=== PATIENT | male | born 1955 | race Caucasian/White ===

== ENCOUNTER → 2017-07-05 15:13 | Outpatient (CLI) | payer OTHER, SELFPAY ==
[2017-07-05 17:36] LABS: Hemoglobin A1c 8.6 % (4.2-6.3)
[2017-07-05 17:38] LABS: Absolute Lymphocyte Count 1.75 X10^3/ul (0.83-4.51); Absolute Neutrophil Count 5.4 X10^3/uL (2.0-7.7); Basophil# 0.03 X10^3/uL; Basophil% 0.4 % (0-1); Eosinophil# 0.38 X10^3/uL; Eosinophils% 4.8 % (0-5); Hematocrit 38.9 % (40-54); Hemoglobin 13.2 g/dl (13.0-16.5); Lymphocyte # 1.75 X10^3/ul (4.0); Lymphocyte % 21.9 % (19-41); Mean Corp Hgb Conc 33.9 g/gl (32-36); Mean Corpuscular Hgb 29.5 pg (27.0-32.0); Mean Corpuscular Volume 86.8 fL (80-94); Mean Platelet Vol. 8.9 fl (6.2-12.0); Neutrophil # 5.41 X10^3/uL (2.7-7.7); Neutrophil % 67.5 % (47-70); Platelet Count 204 K/mm3 (150-450); RBC Distribution Width CV 13.2 % (11.6-14.6); RBC Distribution Width SD 41.7 fl (35.1-43.9); Red Blood Count 4.48 M/mm3 (4.6-6.2)
[2017-07-05 17:42] LABS: POSITIVE COUNT NO; POSITIVE DIFFERENTIAL NO; POSITIVE MORPHOLOGY NO; Vitamin B12 785 pg/mL (211-911); Vitamin D,25 Hydroxy 97.2 ng/mL (29.95-100.01)
[2017-07-05 17:47] LABS: ALB/GLOB Ratio 0.9 RATIO (0.9-2.4); AST(SGOT) 18 U/L (15-37); Alanine Aminotransfer ALT/SGPT 26 U/L (16-61); Albumin, Serum 3.3 g/dL (3.2-5.0); Alkaline Phosphatase 108 U/L (45-117); Anion Gap 9 (5-15); BUN 19 mg/dL (7-18); BUN/Creat Ratio 12.5 RATIO (10-20); Chloride 103 mmol/L (98-107); Cholesterol 105 mg/dL (200); Creatinine, Serum 1.52 mg/dL (0.70-1.30); EST Glomerular Filtration Rate 50 mL/min (>60); Est Glom Filt Rate - Afr Amer 60 mL/min (>60); Globulin 3.6 g/dL (2.2-4.2); Glucose 173 mg/dL (74-106); High Density Lipoprotein 36 mg/dL; Phosphorus 3.4 mg/dL (2.5-4.9); Potassium 4.1 mmol/L (3.5-5.1); Protein, Total 6.9 g/dL (6.4-8.2); Sodium Level 138 mmol/L (136-145); Thyroid Stim Hormone (TSH) 2.86 uIU/mL (0.358-3.74); Triglycerides 271 mg/dL; Very Low Density Lipoprotein 54 mg/dL (5-40)
[2017-07-05 18:36] LABS: Microalbumin:Creatinine Ratio 1126.8 mg/g CRE (<30 mg/g CRE); Protein, Urine (Random) 59.6 mg/dL (<11.9); Protein:Creat Ratio 1426 mg/g CRE (0-200)
[2017-07-05 20:55] LABS: PTHIN 20.1 pg/mL (18.4-80.1)
[2017-07-13 10:53] LABS: Vitamin B1, Thiamine 195.6 nmol/L (66.5-200.0)
== END ==
PROVIDERS: Family Provider Family Medicine; PCP Family Medicine; Visit Provider Family Medicine
DX: E78.5 Hyperlipidemia, unspecified (principal); E11.22 Type 2 diabetes mellitus with diabetic chronic kidney disease; N18.3 Chronic kidney disease, stage 3 (moderate); E11.42 Type 2 diabetes mellitus with diabetic polyneuropathy
CPT/HCPCS: 36415; 80053; 80061; 82043; 82306; 82570; 82607; 83036; 83970; 84100; 84156; 84425; 84443; 85025

== ENCOUNTER → 2017-07-19 16:57 | Outpatient (CLI) | payer OTHER, SELFPAY ==
--- NOTE | 2017-07-19 16:57 | DT_ITS ---
This patient was seen during an EMR downtime July 17, 2017 - July 24, 2017. This patient may have a combination of paper and electronic documentation or all paper documentation. All documentation is viewable within the e-chart portion of [facility] for each patient visit.
[2017-07-23 15:34] LABS: Anion Gap 8 (5-15); BUN 23 mg/dL (7-18); Calcium,Total 8.9 mg/dL (8.5-10.1); Chloride 102 mmol/L (98-107); Creatinine, Serum 1.64 mg/dL (0.70-1.30); EST Glomerular Filtration Rate 45 mL/min (>60); Est Glom Filt Rate - Afr Amer 55 mL/min (>60); Glucose 218 mg/dL (74-106); Potassium 4.4 mmol/L (3.5-5.1); Sodium Level 138 mmol/L (136-145)
== END ==
PROVIDERS: Family Provider Family Medicine; PCP Family Medicine; Visit Provider Family Medicine
DX: N18.3 Chronic kidney disease, stage 3 (moderate) (principal)
CPT/HCPCS: 36415; 80048

== ENCOUNTER → 2017-07-26 13:57 | Outpatient (CLI) | payer OTHER, SELFPAY ==
[2017-07-26 16:20] LABS: Anion Gap 8 (5-15); BUN 25 mg/dL (7-18); BUN/Creat Ratio 15.7 RATIO (10-20); Calcium,Total 9.1 mg/dL (8.5-10.1); Chloride 102 mmol/L (98-107); Creatinine, Serum 1.59 mg/dL (0.70-1.30); EST Glomerular Filtration Rate 47 mL/min (>60); Est Glom Filt Rate - Afr Amer 57 mL/min (>60); Glucose 119 mg/dL (74-106); Potassium 4.4 mmol/L (3.5-5.1); Sodium Level 139 mmol/L (136-145)
== END ==
PROVIDERS: Family Provider Family Medicine; PCP Family Medicine; Visit Provider Family Medicine
DX: N18.3 Chronic kidney disease, stage 3 (moderate) (principal)
CPT/HCPCS: 36415; 80048

== ENCOUNTER → 2017-08-29 14:52 | Outpatient (CLI) | payer OTHER, SELFPAY ==
[2017-08-29 16:45] LABS: Anion Gap 8 (5-15); BUN 26 mg/dL (7-18); BUN/Creat Ratio 16.6 RATIO (10-20); Calcium,Total 8.6 mg/dL (8.5-10.1); Chloride 106 mmol/L (98-107); Creatinine, Serum 1.57 mg/dL (0.70-1.30); EST Glomerular Filtration Rate 48 mL/min (>60); Est Glom Filt Rate - Afr Amer 58 mL/min (>60); Glucose 143 mg/dL (74-106); Potassium 4.3 mmol/L (3.5-5.1); Sodium Level 140 mmol/L (136-145)
== END ==
PROVIDERS: Family Provider Family Medicine; PCP Family Medicine; Visit Provider Family Medicine
DX: I12.9 Hypertensive chronic kidney disease with stage 1 through stage 4 chronic kidney disease, or unspecified chronic kidney disease (principal); N18.3 Chronic kidney disease, stage 3 (moderate); E03.9 Hypothyroidism, unspecified; M10.9 Gout, unspecified; E78.5 Hyperlipidemia, unspecified
CPT/HCPCS: 36415; 80048

== ENCOUNTER → 2017-10-26 14:06 | Outpatient (CLI) | payer OTHER, SELFPAY ==
[2017-10-26 14:09] LABS: Bacteria 0 SEEN /hpf (None Seen); Mucous, Urine 0 SEEN /hpf (<or=2+); Red Blood Cells-Urine 0 SEEN /hpf (0-5); White Blood Cells 0 SEEN /hpf (0-5)
[2017-10-26 15:33] LABS: Absolute Lymphocyte Count 1.78 X10^3/ul (0.83-4.51); Absolute Neutrophil Count 6.1 X10^3/uL (2.0-7.7); Basophil# 0.03 X10^3/uL; Basophil% 0.3 % (0-1); Eosinophil# 0.62 X10^3/uL; Eosinophils% 6.8 % (0-5); Hematocrit 40.2 % (40-54); Lymphocyte # 1.78 X10^3/ul (4.0); Lymphocyte % 19.5 % (19-41); Mean Corp Hgb Conc 34.8 g/gl (32-36); Mean Corpuscular Hgb 30.6 pg (27.0-32.0); Mean Platelet Vol. 8.8 fl (6.2-12.0); Monocyte# 0.61 X10^3/uL; Monocyte% 6.7 % (0-10); Neutrophil # 6.07 X10^3/uL (2.7-7.7); Neutrophil % 66.4 % (47-70); Platelet Count 241 K/mm3 (150-450); RBC Distribution Width CV 13.5 % (11.6-14.6); RBC Distribution Width SD 42.8 fl (35.1-43.9); Red Blood Count 4.57 M/mm3 (4.6-6.2); White Blood Count 9.1 K/mm3 (4.4-11.0)
[2017-10-26 15:36] LABS: Color, Urine Yellow (Yellow); Glucose, Dipstick 100 mg/dl (Normal); Ketone-Dipstick Negative (Negative); Leukocyte Esterase-Dipstick Negative /ul (Negative); Nitrite-Dipstick Negative (Negative); Occult Blood-Urine 10 /ul (Negative); Protein-Dipstick 100 mg/dl (Negative); Specific Gravity, Urine 1.015 (1.002-1.030); Urine Bilirubin Dipstick Negative (Negative); Urine Clarity Clear (Clear); Urine Urobilinogen Normal (Normal)
[2017-10-26 15:43] LABS: POSITIVE COUNT NO; POSITIVE DIFFERENTIAL NO; POSITIVE MORPHOLOGY NO
[2017-10-26 15:52] LABS: Protein, Urine (Random) 72.1 mg/dL (<11.9); Protein:Creat Ratio 972 mg/g CRE (0-200)
[2017-10-26 15:53] LABS: ALB/GLOB Ratio 0.9 RATIO (0.9-2.4); AST(SGOT) 20 U/L (15-37); Alanine Aminotransfer ALT/SGPT 33 U/L (16-61); Albumin, Serum 3.4 g/dL (3.2-5.0); Alkaline Phosphatase 112 U/L (45-117); Anion Gap 8 (5-15); BUN 36 mg/dL (7-18); BUN/Creat Ratio 21.8 RATIO (10-20); Calcium,Total 8.8 mg/dL (8.5-10.1); Chloride 105 mmol/L (98-107); Cholesterol 104 mg/dL (200); Creatinine, Serum 1.65 mg/dL (0.70-1.30); EST Glomerular Filtration Rate 45 mL/min (>60); Est Glom Filt Rate - Afr Amer 55 mL/min (>60); Globulin 3.9 g/dL (2.2-4.2); Glucose 121 mg/dL (74-106); High Density Lipoprotein 35 mg/dL; Potassium 4.5 mmol/L (3.5-5.1); Protein, Total 7.3 g/dL (6.4-8.2); Sodium Level 139 mmol/L (136-145); Squamous Epithelial Cells - UA 0-5 SEEN /hpf (0-5); T4 Free Direct 0.93 ng/dL (0.76-1.46); Thyroid Stim Hormone (TSH) 2.09 uIU/mL (0.358-3.74); Triglycerides 200 mg/dL; Uric Acid 3.5 mg/dL (3.5-7.2); Very Low Density Lipoprotein 40 mg/dL (5-40)
[2017-10-31 12:56] LABS: Anti-Thyroglobulin AB < 1.0 IU/mL (0.0-0.9); Thyroglobulin, Serum Qt. 1.4 ng/mL (1.4-29.2); Thyroid Peroxidase AB 12 IU/mL (0-34)
== END ==
PROVIDERS: Family Provider Family Medicine; PCP Family Medicine; Visit Provider Family Medicine
DX: I12.9 Hypertensive chronic kidney disease with stage 1 through stage 4 chronic kidney disease, or unspecified chronic kidney disease (principal); E11.22 Type 2 diabetes mellitus with diabetic chronic kidney disease; N18.3 Chronic kidney disease, stage 3 (moderate); E03.9 Hypothyroidism, unspecified; M10.9 Gout, unspecified; E78.5 Hyperlipidemia, unspecified
CPT/HCPCS: 36415; 80053; 80061; 81001; 82570; 83036; 84156; 84432; 84439; 84443; 84550; 85025; 86376; 86800

== ENCOUNTER → 2018-03-01 08:27 | Outpatient (CLI) | payer OTHER, SELFPAY ==
[2018-03-01 10:06] LABS: Absolute Lymphocyte Count 1.05 X10^3/ul (0.83-4.51); Absolute Neutrophil Count 6.4 X10^3/uL (2.0-7.7); Basophil# 0.02 X10^3/uL; Basophil% 0.2 % (0-1); Eosinophil# 0.31 X10^3/uL; Eosinophils% 3.8 % (0-5); Hematocrit 41.4 % (40-54); Hemoglobin 13.8 g/dl (13.0-16.5); Lymphocyte # 1.05 X10^3/ul (4.0); Lymphocyte % 12.7 % (19-41); Mean Corp Hgb Conc 33.3 g/gl (32-36); Mean Corpuscular Hgb 29.9 pg (27.0-32.0); Mean Corpuscular Volume 89.8 fL (80-94); Mean Platelet Vol. 8.9 fl (6.2-12.0); Monocyte# 0.48 X10^3/uL; Monocyte% 5.8 % (0-10); Neutrophil # 6.39 X10^3/uL (2.7-7.7); Neutrophil % 77.4 % (47-70); Platelet Count 220 K/mm3 (150-450); RBC Distribution Width CV 13.5 % (11.6-14.6); RBC Distribution Width SD 43.9 fl (35.1-43.9); Red Blood Count 4.61 M/mm3 (4.6-6.2); White Blood Count 8.3 K/mm3 (4.4-11.0)
[2018-03-01 10:08] LABS: POSITIVE COUNT NO; POSITIVE DIFFERENTIAL NO; POSITIVE MORPHOLOGY NO
[2018-03-01 10:19] LABS: Hemoglobin A1c 7.7 % (4.2-6.3)
[2018-03-01 10:24] LABS: Protein, Urine (Random) 183.9 mg/dL (<11.9); Protein:Creat Ratio 1286 mg/g CRE (0-200)
[2018-03-01 10:41] LABS: AST(SGOT) 16 U/L (15-37); Alanine Aminotransfer ALT/SGPT 28 U/L (16-61); Albumin, Serum 3.3 g/dL (3.2-5.0); Alkaline Phosphatase 110 U/L (45-117); Anion Gap 7 (5-15); BUN 29 mg/dL (7-18); BUN/Creat Ratio 16.3 RATIO (10-20); Calcium,Total 8.8 mg/dL (8.5-10.1); Chloride 106 mmol/L (98-107); Cholesterol 106 mg/dL (200); Creatinine, Serum 1.78 mg/dL (0.70-1.30); EST Glomerular Filtration Rate 41 mL/min (>60); Est Glom Filt Rate - Afr Amer 50 mL/min (>60); Globulin 3.4 g/dL (2.2-4.2); Glucose 206 mg/dL (74-106); High Density Lipoprotein 35 mg/dL; Potassium 4.8 mmol/L (3.5-5.1); Protein, Total 6.7 g/dL (6.4-8.2); Sodium Level 141 mmol/L (136-145); Triglycerides 159 mg/dL; Very Low Density Lipoprotein 32 mg/dL (5-40)
--- OUTSIDE RECORDS SUMMARY | 2018-05-05 21:14 | XMS RPT_ITS ---
:1955 Author Organization OHIP Care Team Providers Name Role Phone Bala Han Attending Unavailable Bala Han Primary Care Unavailable Bala Han Attending Unavailable Bala Han Primary Care Unavailable Bala Han Attending Unavailable Bala Han Primary Care Unavailable Bala Han Attending Unavailable Bala Han Primary Care Unavailable Bala Han Attending Unavailable Bala Han Primary Care Unavailable Bala Han Attending Unavailable Bala Han Primary Care Unavailable PROBLEMS PROBLEMS DATE TYPE CONDITION / CODE ATTENDING STATUS SOURCE 08/10/2017 Unknown N18.3 - Chronic Bala Han Active [place] kidney disease, [facility] (moderate) / Repository N18.3(ICD-10) PROCEDURES PROCEDURES No Procedure Records FoundRESULTS RESULTS CBC W/DIFF, AUTOMATED Collected: 03/01/2018 Status: F Source: [place] 8:28 AM [facility] REPOSITORY TYPE CODE TESTS RESULT OUT OF RANGE REFERENCE UNITS LAB L100.1000 4.4-11.0 K/mm3 Normal WBC 8.3 LAB L100.1200 4.6-6.2 M/mm3 Normal RBC 4.61 LAB L100.1300 13.0-16.5 g/dl Normal HGB 13.8 LAB L100.1400 40-54 % Normal HCT 41.4 LAB L100.1500 80-94 fL Normal MCV 89.8 LAB L100.1600 27.0-32.0 pg Normal MCH 29.9 LAB L100.1700 32-36 g/gl Normal MCHC 33.3 LAB L100.1810 11.6-14.6 % Normal RDW CV 13.5 LAB L100.1820 35.1-43.9 fl Normal RDW SD 43.9 LAB L100.1900 150-450 K/mm3 Normal PLT 220 LAB L100.2000 6.2-12.0 fl Normal MPV 8.9 LAB L100.2100 47-70 % High NEUT% 77.4 LAB L100.2200 19-41 % Low LY% 12.7 LAB L100.2300 0-10 % Normal MONO% 5.8 LAB L100.2400 0-5 % Normal EO% 3.8 LAB L100.2500 0-1 % Normal BASO% 0.2 LAB L100.2550 0.0-0.9 % Normal IM GRAN % 0.100 Result Comment: IG% - Immature Granulocytes (promyelocytes, myelocytes and metamyelocytes) > 1% indicates that a LEFT SHIFT is Present. LAB L100.2620 2.0-7.7 X10 3/uL Normal Absolute Neut 6.4 LAB L100.2720 0.83-4.51 X10 3/ul Normal Absolute Lymph 1.05 Performed By: #### L100.0100, L501.9985, L500.4050, L500.4100, L501.9520 #### [facility] [address] [place], [address] HEMOGLOBIN A1C Collected: 03/01/2018 Status: F Source: [place] 8:28 AM [facility] TYPE CODE TESTS RESULT OUT OF RANGE REFERENCE UNITS LAB L501.9985 4.2-6.3 % High HGB A1C 7.7 Performed By: #### L100.0100, L501.9985, L500.4050, L500.4100, L501.9520 #### [facility] [address] [facility] [place], [address] COMPREHENSIVE METABOLIC Collected: 03/01/2018 Status: F Source: [facility] 8:28 AM [facility] TYPE CODE TESTS RESULT OUT OF RANGE REFERENCE UNITS LAB L501.0100 74-106 mg/dL High GLU 206 Result Comment: Glucose result greater than or equal to 200 mg/dL suggests DIABETES MELLITUS per A.D.A. criteria. Please note revised GLUCOSE reference range effective 2017. LAB L501.1000 7-18 mg/dL High BUN 29 LAB L501.1100 0.70-1.30 mg/dL High CREAT,SERUM 1.78 Result Comment: The validity of the calculated GFR AND GFRAA in patients over 70 years has not been determined. Clinical correlation is essential. LAB L501.1110 >60 mL/min Low EST GFR 41 Result Comment: Non- GFR Calc LAB L501.1115 >60 mL/min Low EST GFR - AA 50 Result Comment: GFR Calc LAB L501.1300 10-20 RATIO Normal BUN/CRE 16.3 LAB L501.1500 6.4-8.2 g/dL T Normal PROT 6.7 LAB L501.1800 3.2-5.0 g/dL Normal ALB 3.3 LAB L501.1950 2.2-4.2 g/dL Normal GLOB 3.4 LAB L501.2000 0.9-2.4 RATIO Normal A/G 1.0 LAB L501.2200 8.5-10.1 mg/dL CA Normal 8.8 LAB L501.4100 15-37 U/L Normal AST 16 LAB L501.4305 45-117 U/L Normal ALK P 110 LAB L501.4405 16-61 U/L Normal ALT 28 LAB L501.4600 0.20-1.00 mg/dL T Normal BILI 0.40 LAB L501.5300 136-145 mmol/L NA Normal 141 LAB L501.5600 3.5-5.1 mmol/L K Normal 4.8 LAB L501.5900 98-107 mmol/L CL Normal 106 LAB L501.6100 21.0-32.0 mmol/L Normal CO2 28.0 LAB L501.6200 5-15 Normal GAP 7 Performed By: #### L100.0100, L501.9985, L500.4050, L500.4100, L501.9520 #### [facility] [address] [place], [address] LIPID PROFILE Collected: 03/01/2018 Status: F Source: [place] 8:28 AM [facility] TYPE CODE TESTS RESULT OUT OF RANGE REFERENCE UNITS LAB L501.4900 200 mg/dL Normal CHOL 106 Result Comment: <200 mg/dL Desirable 200-240 mg/dL Borderline >240 mg/dL High Risk LAB L501.5000 mg/dL Normal TRIG 159 Result Comment: The drugs N-Acetylcysteine and Metamizole may falsely depress this assay. Serum Triglycerides Reference Interval Normal <150 mg/dL Borderline high 150 - 199 mg/dL High 200 - 499 mg/dL Very High > or = 500 mg/dL LAB L501.6400 mg/dL Low HDL 35 Result Comment: The drugs N-Acetylcysteine and Metamizole may falsely depress this assay. Reference Range HDL <40 mg/dL Low HDL Cholesterol HDL >or= 60 mg/dL High HDL Cholesterol LAB L501.6500 0-130 mg/dL Normal LDL 39 LAB L501.6600 5-40 mg/dL Normal VLDL 32 Performed By: #### L100.0100, L501.9985, L500.4050, L500.4100, L501.9520 #### [facility] [address] [place], [address] THYROID STIM HORMONE Collected: 03/01/2018 Status: F Source: [place] (TSH) 8:28 AM [facility] TYPE CODE TESTS RESULT OUT OF RANGE REFERENCE UNITS LAB L501.9520 0.358-3.74 uIU/mL Normal TSH 1.40 Performed By: #### L100.0100, L501.9985, L500.4050, L500.4100, L501.9520 #### [facility] [address] [place], [address] PROTEIN+CREATININE Collected: Status: F Source: [place] RATIO,URINE 03/01/2018 8:28 AM [facility] TYPE CODE TESTS RESULT OUT OF RANGE REFERENCE UNITS LAB L501.1200 NO RANGE EST. mg/dL Normal UR CREAT 143.00 LAB L501.1930 <11.9 mg/dL High 183.9 PROTEIN,UR.R AN. LAB L501.1940 0-200 mg/g CRE High PROT:CRE 1286 RATIO Performed By: #### L501.0900 #### [facility] [address] [place], [address] CBC W/DIFF, AUTOMATED Collected: 10/26/2017 Status: F Source: [place] 2:07 PM [facility] TYPE CODE TESTS RESULT OUT OF RANGE REFERENCE UNITS LAB L100.1000 4.4-11.0 K/mm3 Normal WBC 9.1 LAB L100.1200 4.6-6.2 M/mm3 Low RBC 4.57 LAB L100.1300 13.0-16.5 g/dl Normal HGB 14.0 LAB L100.1400 40-54 % Normal HCT 40.2 LAB L100.1500 80-94 fL Normal MCV 88.0 LAB L100.1600 27.0-32.0 pg Normal MCH 30.6 LAB L100.1700 32-36 g/gl Normal MCHC 34.8 LAB L100.1810 11.6-14.6 % Normal RDW CV 13.5 LAB L100.1820 35.1-43.9 fl Normal RDW SD 42.8 LAB L100.1900 150-450 K/mm3 Normal PLT 241 LAB L100.2000 6.2-12.0 fl Normal MPV 8.8 LAB L100.2100 47-70 % Normal NEUT% 66.4 LAB L100.2200 19-41 % Normal LY% 19.5 LAB L100.2300 0-10 % Normal MONO% 6.7 LAB L100.2400 0-5 % High EO% 6.8 LAB L100.2500 0-1 % Normal BASO% 0.3 LAB L100.2550 0.0-0.9 % Normal IM GRAN % 0.300 Result Comment: IG% - Immature Granulocytes (promyelocytes, myelocytes and metamyelocytes) > 1% indicates that a LEFT SHIFT is Present. LAB L100.2620 2.0-7.7 X10 3/uL Normal Absolute Neut 6.1 LAB L100.2720 0.83-4.51 X10 3/ul Normal Absolute Lymph 1.78 Performed By: #### L100.0100 #### [facility] [address] [place], [address] URINALYSIS, COMPLETE Collected: 10/26/2017 Status: F Source: [place] 2:07 PM [facility] Order Comment: How was Urine Obtained? CLEAN CATCH TYPE CODE TESTS RESULT OUT OF RANGE REFERENCE UNITS LAB L400.3000 Yellow COLOR Normal Yellow LAB L400.3050 Clear Normal CLARITY Clear LAB L400.3200 Normal mg/dl High GLUCOSE, UR 100 LAB L400.3300 Negative mg/dL Normal BILIRUBIN URINE Negative LAB L400.3400 Negative mg/dl Normal KETONE UR Negative LAB L400.3465 1.002-1.030 Normal SP.GR. DIPSTX 1.015 LAB L400.3550 5.0 - 8.0 pH UR Normal 5.0 LAB L400.3600 Negative mg/dl High PROT DIPSTX 100 LAB L400.3700 Normal mg/dl Normal UROBILI Normal LAB L400.3750 Negative Normal NITRITE UR Negative LAB L400.3780 Negative /ul High 10 OCCULT BLOOD-UR LAB L400.3800 Negative /ul LEUK Normal ESTERASE Negative LAB L400.4050 0-5 /hpf WBC 0 Normal SEEN LAB L400.4100 0-5 /hpf 0 Normal RBC-UA SEEN LAB L400.4150 0-5 /hpf SQUAM Normal EPI 0-5 SEEN LAB L400.4300 None Seen /hpf 0 Normal BACTERIA SEEN LAB L400.4350 <or=2+ /hpf 0 Normal MUCUS, URINE SEEN Performed By: #### L400.0001 #### [facility] [address] [place], [address] PROTEIN+CREATININE Collected: Status: F Source: [place] RATIO,URINE 10/26/2017 2:07 PM [facility]POS[facility] TYPE CODE TESTS RESULT OUT OF RANGE REFERENCE UNITS LAB L501.1200 NO RANGE EST. mg/dL Normal UR CREAT 74.20 LAB L501.1930 <11.9 mg/dL High 72.1 PROTEIN,UR.R AN. LAB L501.1940 0-200 mg/g CRE High PROT:CRE 972 RATIO Performed By: #### L501.0900 #### [facility] [address] [facility] [place], [place], [address] COMPREHENSIVE METABOLIC Collected: 10/26/2017 Status: F Source: [place] PROFIL 2:07 PM [facility] TYPE CODE TESTS RESULT OUT OF RANGE REFERENCE UNITS LAB L501.0100 74-106 mg/dL High GLU 121 Result Comment: Fasting Glucose result from 100 to 125 mg/dL suggests IMPAIRED HOMEOSTASIS per A.D.A. criteria. Please note revised GLUCOSE reference range effective 2017. LAB L501.1000 7-18 mg/dL High BUN 36 LAB L501.1100 0.70-1.30 mg/dL High CREAT,SERUM 1.65 Result Comment: The validity of the calculated GFR AND GFRAA in patients over 70 years has not been determined. Clinical correlation is essential. LAB L501.1110 >60 mL/min Low EST GFR 45 Result Comment: Non- GFR Calc LAB L501.1115 >60 mL/min Low EST GFR - AA 55 Result Comment: GFR Calc LAB L501.1300 10-20 RATIO High BUN/CRE 21.8 LAB L501.1500 6.4-8.2 g/dL T Normal PROT 7.3 LAB L501.1800 3.2-5.0 g/dL Normal ALB 3.4 LAB L501.1950 2.2-4.2 g/dL Normal GLOB 3.9 LAB L501.2000 0.9-2.4 RATIO Normal A/G 0.9 LAB L501.2200 8.5-10.1 mg/dL CA Normal 8.8 LAB L501.4100 15-37 U/L Normal AST 20 LAB L501.4305 45-117 U/L Normal ALK P 112 LAB L501.4405 16-61 U/L Normal ALT 33 LAB L501.4600 0.20-1.00 mg/dL T Normal BILI 0.40 LAB L501.5300 136-145 mmol/L NA Normal 139 LAB L501.5600 3.5-5.1 mmol/L K Normal 4.5 LAB L501.5900 98-107 mmol/L CL Normal 105 LAB L501.6100 21.0-32.0 mmol/L Normal CO2 26.0 LAB L501.6200 5-15 Normal GAP 8 Performed By: #### L500.4050, L500.4100, L501.1400, L501.9520, L506.0400 #### [facility] [address] [place], [address] LIPID PROFILE Collected: 10/26/2017 Status: F Source: [place] 2:07 PM [facility] TYPE CODE TESTS RESULT OUT OF RANGE REFERENCE UNITS LAB L501.4900 200 mg/dL Normal CHOL 104 Result Comment: <200 mg/dL Desirable 200-240 mg/dL Borderline >240 mg/dL High Risk LAB L501.5000 mg/dL High TRIG 200 Result Comment: The drugs N-Acetylcysteine and Metamizole may falsely depress this assay. Serum Triglycerides Reference Interval Normal <150 mg/dL Borderline high 150 - 199 mg/dL High 200 - 499 mg/dL Very High > or = 500 mg/dL LAB L501.6400 mg/dL Low HDL 35 Result Comment: The drugs N-Acetylcysteine and Metamizole may falsely depress this assay. Reference Range HDL <40 mg/dL Low HDL Cholesterol HDL >or= 60 mg/dL High HDL Cholesterol LAB L501.6500 0-130 mg/dL Normal LDL 29 LAB L501.6600 5-40 mg/dL Normal VLDL 40 Performed By: #### L500.4050, L500.4100, L501.1400, L501.9520, L506.0400 #### [facility] [address] [place], [address] URIC ACID Collected: 10/26/2017 Status: F Source: [place] 2:07 PM [facility] TYPE CODE TESTS RESULT OUT OF RANGE REFERENCE UNITS LAB L501.1400 3.5-7.2 mg/dL Normal URIC 3.5 Result Comment: The drugs N-Acetylcysteine and Metamizole may falsely depress this assay. Performed By: #### L500.4050, L500.4100, L501.1400, L501.9520, L506.0400 #### [facility] [address] [place], [address] THYROID STIM HORMONE Collected: 10/26/2017 Status: F Source: [place] (TSH) 2:07 PM [facility] TYPE CODE TESTS RESULT OUT OF RANGE REFERENCE UNITS LAB L501.9520 0.358-3.74 uIU/mL Normal TSH 2.09 Performed By: #### L500.4050, L500.4100, L501.1400, L501.9520, L506.0400 #### [facility] [address] [facility] [facility] [place], [place], [id number] T4 FREE DIRECT Collected: 10/26/2017 Status: F Source: [place] 2:07 PM [facility] TYPE CODE TESTS RESULT OUT OF RANGE REFERENCE UNITS LAB L506.0400 0.76-1.46 ng/dL Normal T4 FREE 0.93 DIRECT Performed By: #### L500.4050, L500.4100, L501.1400, L501.9520, L506.0400 #### [facility] [address] [facility] [place], [place], [address] HEMOGLOBIN A1C Collected: 10/26/2017 Status: F Source: [place] 2:07 PM [facility] TYPE CODE TESTS RESULT OUT OF RANGE REFERENCE UNITS LAB L501.9985 4.2-6.3 % High HGB A1C 7.0 Performed By: #### L501.9985 #### [facility] [place], [address] THYROGLOBULIN W/ANTI-TG Collected: 10/26/2017 Status: F Source: [place] AB 2:07 PM [facility] TYPE CODE TESTS RESULT OUT OF RANGE REFERENCE UNITS LAB L3300.7025 0.0-0.9 IU/mL Normal ANTI-TG < 1.0 AB Result Comment: Thyroglobulin Antibody measured by [facility] [employer] LAB L3400.1030 1.4-29.2 ng/mL Normal THYROGLOB 1.4 Result Comment: According to the National Academy of Clinical Biochemistry, the reference interval for Thyroglobulin (TG) should be related to euthyroid patients and not for patients who underwent thyroidectomy. TG reference intervals for these patients depend on the residual mass of the thyroid tissue left after surgery. Establishing a post-operative baseline is recommended. The assay limit of quantitation is 0.1 ng/mL Thyroglobulin measured by Salvador Symone Immunometric Assay Performed By: #### L3300.6820, L3300.6900 #### [facility] (refer to report for specific site) refer to report for address and phone number THYROID PEROXIDASE AB Collected: 10/26/2017 Status: F Source: [place] 2:07 PM [facility] TYPE CODE TESTS RESULT OUT OF RANGE REFERENCE UNITS LAB L3300.6900 0-34 IU/mL Normal TPO AB 12 6676 Result Comment: Performed at: [address] [id number] [employer] Technician: Conrad Whitten PhD, Phone: [phone] Performed By: #### L3300.6820, L3300.6900 #### [facility] (refer to report for specific site) refer to report for address and phone number BASIC METABOLIC Collected: 08/29/2017 Status: F Source: [place] PROFILE (BMP) 2:53 PM [facility] TYPE CODE TESTS RESULT OUT OF RANGE REFERENCE UNITS LAB L501.0100 74-106 mg/dL High GLU 143 Result Comment: Fasting Glucose result greater than or equal to 126 mg/dL suggests DIABETES MELLITUS per A.D.A. criteria. Please note revised GLUCOSE reference range effective 2017. LAB L501.1000 7-18 mg/dL High BUN 26 LAB L501.1100 0.70-1.30 mg/dL High CREAT,SERUM 1.57 Result Comment: The validity of the calculated GFR AND GFRAA in patients over 70 years has not been determined. Clinical correlation is essential. LAB L501.1110 >60 mL/min Low EST GFR 48 Result Comment: Non- GFR Calc LAB L501.1115 >60 mL/min Low EST GFR - AA 58 Result Comment: GFR Calc LAB L501.1300 10-20 RATIO Normal BUN/CRE 16.6 LAB L501.2200 8.5-10.1 mg/dL CA Normal 8.6 LAB L501.5300 136-145 mmol/L NA Normal 140 LAB L501.5600 3.5-5.1 mmol/L K Normal 4.3 LAB L501.5900 98-107 mmol/L CL Normal 106 LAB L501.6100 21.0-32.0 mmol/L Normal CO2 26.0 LAB L501.6200 5-15 Normal GAP 8 Performed By: #### L500.2500 #### [facility] [address] [facility], [address] DOWNTIME REPORT Observed: 08/03/2017 Status: F Source: [place] 1:10 PM [facility] Medical Records Department [address] [place] [address] Downtime Report MR#: [id number] Acct: [id number] Name: GAMALIEL GRIFFIN Rep #: [id number] : 1955 61 From: Richy Hubbard PCP: Bala Han MD Status: REG CLI This patient was seen during an EMR downtime July 17, 2017 - July 24, 2017. This patient may have a combination of paper and electronic documentation or all paper documentation. All documentation is viewable within the e-chart portion of [employer] for each patient visit. BASIC METABOLIC Collected: 07/26/2017 Status: F Source: [place] PROFILE (BMP) 1:58 PM [facility] TYPE CODE TESTS RESULT OUT OF RANGE REFERENCE UNITS LAB L501.0100 74-106 mg/dL High GLU 119 Result Comment: Fasting Glucose result from 100 to 125 mg/dL suggests IMPAIRED HOMEOSTASIS per A.D.A. criteria. Please note revised GLUCOSE reference range effective 2017. LAB L501.1000 7-18 mg/dL High BUN 25 LAB L501.1100 0.70-1.30 mg/dL High CREAT,SERUM 1.59 Result Comment: The validity of the calculated GFR AND GFRAA in patients over 70 years has not been determined. Clinical correlation is essential. LAB L501.1110 >60 mL/min Low EST GFR 47 Result Comment: Non- GFR Calc LAB L501.1115 >60 mL/min Low EST GFR - AA 57 Result Comment: GFR Calc LAB L501.1300 10-20 RATIO Normal BUN/CRE 15.7 LAB L501.2200 8.5-10.1 mg/dL CA Normal 9.1 LAB L501.5300 136-145 mmol/L NA Normal 139 LAB L501.5600 3.5-5.1 mmol/L K Normal 4.4 LAB L501.5900 98-107 mmol/L CL Normal 102 LAB L501.6100 21.0-32.0 mmol/L Normal CO2 29.0 LAB L501.6200 5-15 Normal GAP 8 Performed By: #### L500.2500 #### [facility] [address] [place], [place], [address] BASIC METABOLIC Collected: 07/19/2017 Status: F Source: [place] PROFILE (BMP) 3:57 PM [facility] Order Comment: RESULT(S) PREVIOUSLY REPORTED ON MANUAL REQUISITION DURING DOWNTIME. TYPE CODE TESTS RESULT OUT OF RANGE REFERENCE UNITS LAB L501.0100 74-106 mg/dL High GLU 218 Result Comment: Glucose result greater than or equal to 200 mg/dL suggests DIABETES MELLITUS per A.D.A. criteria. Please note revised GLUCOSE reference range effective 2017. LAB L501.1000 7-18 mg/dL High BUN 23 LAB L501.1100 0.70-1.30 mg/dL High CREAT,SERUM 1.64 Result Comment: The validity of the calculated GFR AND GFRAA in patients over 70 years has not been determined. Clinical correlation is essential. LAB L501.1110 >60 mL/min Low EST GFR 45 LAB L501.1115 >60 mL/min Low EST GFR - AA 55 LAB L501.1300 10-20 RATIO Normal BUN/CRE 14.0 LAB L501.2200 8.5-10.1 mg/dL Normal CA 8.9 LAB L501.5300 136-145 mmol/L Normal NA 138 LAB L501.5600 3.5-5.1 mmol/L Normal K 4.4 LAB L501.5900 98-107 mmol/L Normal CL 102 LAB L501.6100 21.0-32.0 mmol/L Normal CO2 28.0 LAB L501.6200 5-15 Normal GAP 8 Performed By: #### L500.2500 #### [facility] [address] [place], [place], [address] HEMOGLOBIN A1C Collected: 07/05/2017 Status: F Source: [place] 3:17 PM [facility] Order Comment: Order Date: 07/05/17 Order Info: [id number] - A1C TYPE CODE TESTS RESULT OUT OF RANGE REFERENCE UNITS LAB L501.9985 4.2-6.3 % High HGB A1C 8.6 Performed By: #### L501.9985, L503.0105, L506.1000, L100.0100, L500.4050, L500.4100, L501.2300, L501.9520, L502.0250, L509.1000 #### [facility] [address] [facility] [place], [place], [address] VITAMIN B12 Collected: 07/05/2017 Status: F Source: [place] 3:17 PM [facility] Order Comment: Order Date: 07/05/17 Order Info: [id number] - B12 Order Info: [id number] - VITD25 TYPE CODE TESTS RESULT OUT OF RANGE REFERENCE UNITS LAB L503.0105 211-911 pg/mL Normal Vitamin B12 785 Performed By: #### L501.9985, L503.0105, L506.1000, L100.0100, L500.4050, L500.4100, L501.2300, L501.9520, L502.0250, L509.1000 #### [facility] [address] [place], [address] VITAMIN D,25 HYDROXY Collected: 07/05/2017 Status: F Source: [place] 3:17 PM [facility] Order Comment: Order Date: 07/05/17 Order Info: [id number] - B12 Order Info: [id number] - VITD25 TYPE CODE TESTS RESULT OUT OF RANGE REFERENCE UNITS LAB L506.1000 29.95-100.01 ng/mL Normal Vitamin D 97.2 25-OH Result Comment: Vitamin D 25(OH) Status Range Deficiency <20 ng/mL (50nmol/L) Insuffciency 20 - 30 ng/mL (50 - 75 nmol/L) Sufficiency 30 - 100 ng/mL (75 - 250 nmol/L) Toxicity >100 ng/mL (>250 nmol/L) Performed By: #### L501.9985, L503.0105, L506.1000, L100.0100, L500.4050, L500.4100, L501.2300, L501.9520, L502.0250, L509.1000 #### [facility] [address] [place], [address] CBC W/DIFF, AUTOMATED Collected: 07/05/2017 Status: F Source: [place] 3:17 PM [facility] TYPE CODE TESTS RESULT OUT OF RANGE REFERENCE UNITS LAB L100.1000 4.4-11.0 K/mm3 Normal WBC 8.0 LAB L100.1200 4.6-6.2 M/mm3 Low RBC 4.48 LAB L100.1300 13.0-16.5 g/dl Normal HGB 13.2 LAB L100.1400 40-54 % Low HCT 38.9 LAB L100.1500 80-94 fL Normal MCV 86.8 LAB L100.1600 27.0-32.0 pg Normal MCH 29.5 LAB L100.1700 32-36 g/gl Normal MCHC 33.9 LAB L100.1810 11.6-14.6 % Normal RDW CV 13.2 LAB L100.1820 35.1-43.9 fl Normal RDW SD 41.7 LAB L100.1900 150-450 K/mm3 Normal PLT 204 LAB L100.2000 6.2-12.0 fl Normal MPV 8.9 LAB L100.2100 47-70 % Normal NEUT% 67.5 LAB L100.2200 19-41 % Normal LY% 21.9 LAB L100.2300 0-10 % Normal MONO% 5.0 LAB L100.2400 0-5 % Normal EO% 4.8 LAB L100.2500 0-1 % Normal BASO% 0.4 LAB L100.2550 0.0-0.9 % Normal IM GRAN % 0.400 Result Comment: IG% - Immature Granulocytes (promyelocytes, myelocytes and metamyelocytes) > 1% indicates that a LEFT SHIFT is Present. LAB L100.2620 2.0-7.7 X10 3/uL Normal Absolute Neut 5.4 LAB L100.2720 0.83-4.51 X10 3/ul Normal Absolute Lymph 1.75 Performed By: #### L501.9985, L503.0105, L506.1000, L100.0100, L500.4050, L500.4100, L501.2300, L501.9520, L502.0250, L509.1000 #### [facility] [address] [place], [address] COMPREHENSIVE METABOLIC Collected: 07/05/2017 Status: F Source: [facility] 3:17 PM [facility] Order Comment: Order Date: 07/05/17 Order Info: [id number] - CMP Order Info: [id number] - LIPID Order Info: [id number] - PHOS Order Info: [id number] - TSH Comments: VITB 6 #[id number] SERUM FROZEN PFL TYPE CODE TESTS RESULT OUT OF RANGE REFERENCE UNITS LAB L501.0100 74-106 mg/dL High GLU 173 Result Comment: Fasting Glucose result greater than or equal to 126 mg/dL suggests DIABETES MELLITUS per A.D.A. criteria. Please note revised GLUCOSE reference range effective 2017. LAB L501.1000 7-18 mg/dL High BUN 19 LAB L501.1100 0.70-1.30 mg/dL High CREAT,SERUM 1.52 Result Comment: The validity of the calculated GFR AND GFRAA in patients over 70 years has not been determined. Clinical correlation is essential. LAB L501.1110 >60 mL/min Low EST GFR 50 Result Comment: Non- GFR Calc LAB L501.1115 >60 mL/min Normal EST GFR - AA 60 Result Comment: GFR Calc LAB L501.1300 10-20 RATIO Normal BUN/CRE 12.5 LAB L501.1500 6.4-8.2 g/dL T Normal PROT 6.9 LAB L501.1800 3.2-5.0 g/dL Normal ALB 3.3 LAB L501.1950 2.2-4.2 g/dL Normal GLOB 3.6 LAB L501.2000 0.9-2.4 RATIO Normal A/G 0.9 LAB L501.2200 8.5-10.1 mg/dL CA Normal 9.0 LAB L501.4100 15-37 U/L Normal AST 18 LAB L501.4305 45-117 U/L Normal ALK P 108 LAB L501.4405 16-61 U/L Normal ALT 26 LAB L501.4600 0.20-1.00 mg/dL T Normal BILI 0.30 LAB L501.5300 136-145 mmol/L NA Normal 138 LAB L501.5600 3.5-5.1 mmol/L K Normal 4.1 LAB L501.5900 98-107 mmol/L CL Normal 103 LAB L501.6100 21.0-32.0 mmol/L Normal CO2 26.0 LAB L501.6200 5-15 Normal GAP 9 Performed By: #### L501.9985, L503.0105, L506.1000, L100.0100, L500.4050, L500.4100, L501.2300, L501.9520, L502.0250, L509.1000 #### [facility] [facility] [address] [place], [address] LIPID PROFILE Collected: 07/05/2017 Status: F Source: [place] 3:17 PM [facility] Order Comment: Order Date: 07/05/17 Order Info: [id number] - CMP Order Info: [id number] - LIPID Order Info: [id number] - PHOS Order Info: [id number] - TSH Comments: VITB 6 #6702 SERUM FROZEN PFL TYPE CODE TESTS RESULT OUT OF RANGE REFERENCE UNITS LAB L501.4900 200 mg/dL Normal CHOL 105 Result Comment: <200 mg/dL Desirable 200-240 mg/dL Borderline >240 mg/dL High Risk LAB L501.5000 mg/dL High TRIG 271 Result Comment: The drugs N-Acetylcysteine and Metamizole may falsely depress this assay. Serum Triglycerides Reference Interval Normal <150 mg/dL Borderline high 150 - 199 mg/dL High 200 - 499 mg/dL Very High > or = 500 mg/dL LAB L501.6400 mg/dL Low HDL 36 Result Comment: The drugs N-Acetylcysteine and Metamizole may falsely depress this assay. Reference Range HDL <40 mg/dL Low HDL Cholesterol HDL >or= 60 mg/dL High HDL Cholesterol LAB L501.6500 0-130 mg/dL Normal LDL 15 LAB L501.6600 5-40 mg/dL High VLDL 54 Performed By: #### L501.9985, L503.0105, L506.1000, L100.0100, L500.4050, L500.4100, L501.2300, L501.9520, L502.0250, L509.1000 #### [facility] [address] [place], [place], [address] PHOSPHORUS Collected: 07/05/2017 Status: F Source: [place] 3:17 PM [facility] Order Comment: Order Date: 07/05/17 Order Info: [id number] - CMP Order Info: [id number] - LIPID Order Info: [id number] - PHOS Order Info: [id number] - TSH Comments: VITB 6 #2263 SERUM FROZEN PFL TYPE CODE TESTS RESULT OUT OF RANGE REFERENCE UNITS LAB L501.2300 2.5-4.9 mg/dL Normal PHOS 3.4 Performed By: #### L501.9985, L503.0105, L506.1000, L100.0100, L500.4050, L500.4100, L501.2300, L501.9520, L502.0250, L509.1000 #### [facility] [address] [place], [place], [address] THYROID STIM HORMONE Collected: 07/05/2017 Status: F Source: [place] (TSH) 3:17 PM [facility] Order Comment: Order Date: 07/05/17 Order Info: [id number] - CMP Order Info: [id number] - LIPID Order Info: [id number] - PHOS Order Info: [id number] - TSH Comments: VITB 6 #4655 SERUM FROZEN PFL TYPE CODE TESTS RESULT OUT OF RANGE REFERENCE UNITS LAB L501.9520 0.358-3.74 uIU/mL Normal TSH 2.86 Performed By: #### L501.9985, L503.0105, L506.1000, L100.0100, L500.4050, L500.4100, L501.2300, L501.9520, L502.0250, L509.1000 #### [facility] [address] [facility] [place], [place], [id number] MICROALB:CREAT Collected: 07/05/2017 Status: F Source: [facility] [facility] 3:17 PM [facility] Order Comment: Order Date: 07/05/17 Order Info: [id number] - MIACRE TYPE CODE TESTS RESULT OUT OF RANGE REFERENCE UNITS LAB L502.0500 NO RANGE EST. mg/L Normal 471.0 MICROALBUMIN ,UR LAB L502.0600 <30 mg/g CRE mg/g CRE High 1126.8 MALB:CREAT Performed By: #### L501.9985, L503.0105, L506.1000, L100.0100, L500.4050, L500.4100, L501.2300, L501.9520, L502.0250, L509.1000 #### [facility] [address] [place], [place], [address] PTHIN Collected: 07/05/2017 Status: F Source: [place] 3:17 PM [facility] REPOSITORY Order Comment: Order Date: 07/05/17 Order Info: [id number] - PTHIN TYPE CODE TESTS RESULT OUT OF RANGE REFERENCE UNITS LAB L509.1000 18.4-80.1 pg/mL Normal PTHIN 20.1 Performed By: #### L501.9985, L503.0105, L506.1000, L100.0100, L500.4050, L500.4100, L501.2300, L501.9520, L502.0250, L509.1000 #### [facility] [address], [address] PROTEIN+CREATININE Collected: Status: F Source: [place] RATIO,URINE 07/05/2017 3:17 PM [facility] Order Comment: Order Date: 07/05/17 Order Info: [id number] - MIACRE TYPE CODE TESTS RESULT OUT OF RANGE REFERENCE UNITS LAB L501.1200 NO RANGE EST. mg/dL Normal UR CREAT 41.80 LAB L501.1930 <11.9 mg/dL High 59.6 PROTEIN,UR.R AN. LAB L501.1940 0-200 mg/g CRE High PROT:CRE 1426 RATIO Performed By: #### L501.0900 #### [facility] [address] [place], [address] MISCELLANEOUS LAB Collected: 07/05/2017 Status: F Source: [place] PROCEDURE 3:17 PM [facility] Order Comment: Comments: VITB 6 #4655 SERUM FROZEN PFL Test(s) Ordered: VITB 6 #4655 SERUM FROZEN PFL TYPE CODE TESTS RESULT OUT OF RANGE REFERENCE UNITS LAB L801.1541 Normal [facility] LAB TEST Result Comment: TEST RESULT LIMITS Vitamin B6, Plasma Vitamin B6 13.6 ug/L 5.3 - 46.7 Disclaimer: This test was developed and its performance characteristics determined by [facility]. It has not been cleared or approved by the Food and Drug Administration. TESTING PERFORMED AT [facility]. ORIGINAL REPORT ON FILE IN LAB CONTAINS ADDITIONAL TEST SITE INFORMATION. Performed By: #### L801.1541 #### [facility] [address] [place], [address] VITAMIN B1, THIAMINE Collected: 07/05/2017 Status: F Source: [place] 3:17 PM [facility] Order Comment: Comments: VITB 6 #4655 SERUM FROZEN PFL TYPE CODE TESTS RESULT OUT OF RANGE REFERENCE UNITS LAB L3300.8000 66.5-200.0 nmol/L Normal VIT B1 195.6 Result Comment: This test was developed and its performance characteristics determined by [facility]. It has not been cleared or approved by the Food and Drug Administration. Performed at: [address] [id number] [employer] Technician: Marbin Cerda MD, Phone: [phone] Performed By: #### L3300.8000 #### [facility] (refer to report for specific site) refer to report for address and phone number ALLERGIES ALLERGIES No Allergies Records FoundENCOUNTERS ENCOUNTERS ADMIT/DISCHARGE ACCOUNT ADMITTING ENCOUNTER LOCATION SOURCE NUMBER CLASS 03/01/2018 [id number] Ambulatory [place] 0 [facility] ing:MFPLAB Repository 10/26/2017 [id number] Ambulatory [place] 4 [facility] ing:MFPLAB Repository 08/29/2017 [id number] Ambulatory [place] 8 [facility] ing:MFPLAB Repository 07/26/2017 [id number] Ambulatory [place] 1 [facility] ing:MFPLAB Repository 07/19/2017 [id number] Ambulatory [place] 3 [facility] ing:MFPLAB Repository 07/05/2017 [id number] Ambulatory [place] 0 [facility] ing:MFPLAB Repository PAYERS PAYERS ENCOUNTER GUARANTOR PAYER SUBSCRIBER SOURCE 03/01/2018 GAMALIEL GARRISON32 Primary GAMALIEL GAVIN: [place] HAINES Insurance:MEDICAL [id number] [address]Yln: (257) Number: Repository [phone] [id number] Date:[id number] [address] [place] [address]UD: 03/01/2018 Secondary NOT GIVENUNK [place] Insurance:SELF PAY [facility] Number: Effective Repository Date:2018-03-01 10/26/2017 GAMALIEL GRIFFIN5532 Primary GAMALIEL WELLSDOB: [place] E YANCY Insurance:MEDICAL [id number] County Health Center [address]Bur: (330) Number: Repository [phone] () [id number] Date:[id number] [address] [address]ZC: 10/26/2017 Secondary NOT GIVENUNK [place] Insurance:SELF PAY [facility] Number: Effective Repository Date:2017-10-26 08/29/2017 GAMALIEL GARRISON32 Primary GAMALIEL WELLSDOB: [place] E YANCY Insurance:MEDICAL [id number] County Health Center [address]Tzr: (330) Number: Repository [phone] () [id number] Date:[id number] [address]RT: 08/29/2017 Secondary NOT GIVENUNK [place] Insurance:SELF PAY [facility] Number: Effective Repository Date:2017-08-29 07/26/2017 GAMALIEL GRIFFIN5532 Primary GAMALIEL GABYDOB: [place] YANCY Insurance:MEDICAL [id number] County Health Center [address]Utz: (330) Number: Repository [phone] () [id number] Date:[id number] [address] [address]XE: 07/26/2017 Secondary NOT GIVENUNK [place] Insurance:SELF PAY [facility] Number: Effective Repository Date:2017-07-26 07/19/2017 GAMALIEL GRIFFIN5532 Primary GAMALIEL WELLSDOB: [place] E YANCY Insurance:MEDICAL [id number] County Health Center [address]Hxj: (330) Number: Repository [phone] () [id number] Date:[id number] [address]RE: 07/19/2017 Secondary NOT GIVENUNK [place] Insurance:SELF PAY [facility] Number: Effective Repository Date:2017-07-19 07/05/2017 GAMALIEL GRIFFIN5532 Primary GAMALIEL DUQUEB: [place] E YANCY Insurance:MEDICAL [id number] County Health Center [address]Asc: (330) Number: Repository [phone] () [id number] Date:[id number] [address]CP: 07/05/2017 Secondary NOT GIVENUNK [place] Insurance:SELF PAY [facility] Number: Effective Repository Date:2017-07-05
== END ==
PROVIDERS: Family Provider Family Medicine; PCP Family Medicine; Visit Provider Family Medicine
DX: E11.22 Type 2 diabetes mellitus with diabetic chronic kidney disease (principal); I12.9 Hypertensive chronic kidney disease with stage 1 through stage 4 chronic kidney disease, or unspecified chronic kidney disease; N18.3 Chronic kidney disease, stage 3 (moderate); E78.5 Hyperlipidemia, unspecified; E03.9 Hypothyroidism, unspecified
CPT/HCPCS: 36415; 80053; 80061; 82570; 83036; 84156; 84443; 85025

== ENCOUNTER → 2018-06-21 | Outpatient (CLI) | payer OTHER, SELFPAY ==
[2018-06-21 10:05] LABS: Absolute Lymphocyte Count 1.72 X10^3/ul (0.83-4.51); Basophil# 0.03 X10^3/uL; Basophil% 0.4 % (0-1); Eosinophil# 0.36 X10^3/uL; Eosinophils% 4.6 % (0-5); Hematocrit 42.8 % (40-54); Hemoglobin 14.4 g/dl (13.0-16.5); Lymphocyte # 1.72 X10^3/ul (4.0); Lymphocyte % 22.1 % (19-41); Mean Corp Hgb Conc 33.6 g/gl (32-36); Mean Corpuscular Volume 89.2 fL (80-94); Mean Platelet Vol. 8.7 fl (6.2-12.0); Monocyte# 0.65 X10^3/uL; Monocyte% 8.4 % (0-10); Neutrophil # 4.99 X10^3/uL (2.7-7.7); Neutrophil % 64.2 % (47-70); Platelet Count 218 K/mm3 (150-450); RBC Distribution Width CV 13.4 % (11.6-14.6); RBC Distribution Width SD 43.3 fl (35.1-43.9); White Blood Count 7.8 K/mm3 (4.4-11.0)
[2018-06-21 10:08] LABS: Protein, Urine (Random) 109.7 mg/dL (<11.9); Protein:Creat Ratio 1143 mg/g CRE (0-200)
[2018-06-21 10:11] LABS: POSITIVE COUNT NO; POSITIVE DIFFERENTIAL NO; POSITIVE MORPHOLOGY NO
[2018-06-21 10:27] LABS: Hemoglobin A1c 6.6 % (4.2-6.3)
[2018-06-21 10:35] LABS: ALB/GLOB Ratio 0.9 RATIO (0.9-2.4); AST(SGOT) 25 U/L (15-37); Alanine Aminotransfer ALT/SGPT 33 U/L (16-61); Albumin, Serum 3.4 g/dL (3.2-5.0); Alkaline Phosphatase 116 U/L (45-117); Anion Gap 8 (5-15); BUN 31 mg/dL (7-18); BUN/Creat Ratio 17.6 RATIO (10-20); Calcium,Total 8.8 mg/dL (8.5-10.1); Chloride 105 mmol/L (98-107); Cholesterol 118 mg/dL (200); Creatinine, Serum 1.76 mg/dL (0.70-1.30); EST Glomerular Filtration Rate 42 mL/min (>60); Est Glom Filt Rate - Afr Amer 51 mL/min (>60); Globulin 3.7 g/dL (2.2-4.2); Glucose 51 mg/dL (74-106); High Density Lipoprotein 40 mg/dL; Potassium 4.3 mmol/L (3.5-5.1); Protein, Total 7.1 g/dL (6.4-8.2); Sodium Level 141 mmol/L (136-145); Thyroid Stim Hormone (TSH) 2.14 uIU/mL (0.358-3.74); Triglycerides 110 mg/dL; Very Low Density Lipoprotein 22 mg/dL (5-40)
== END | disposition home or self-care (01) ==
LOC: MTLAB 07:19
PROVIDERS: Family Provider Family Medicine; PCP Family Medicine; Referring Provider Family Medicine; Visit Provider Family Medicine
DX: E11.22 Type 2 diabetes mellitus with diabetic chronic kidney disease (principal); N18.3 Chronic kidney disease, stage 3 (moderate); E78.5 Hyperlipidemia, unspecified; E03.9 Hypothyroidism, unspecified
CPT/HCPCS: 36415; 80053; 80061; 82570; 83036; 84156; 84443; 85025

== ENCOUNTER → 2018-10-04 | Outpatient (CLI) | payer OTHER, SELFPAY ==
[2018-10-04 10:00] LABS: Absolute Lymphocyte Count 1.08 X10^3/uL (0.83-4.51); Absolute Neutrophil Count 5.5 X10^3/uL (2.0-7.7); Basophil# 0.04 X10^3/uL; Basophil% 0.5 % (0-1); Eosinophil# 0.22 X10^3/uL; Hematocrit 40.6 % (40-54); Hemoglobin 13.3 g/dL (13.0-16.5); Lymphocyte # 1.08 X10^3/ul (4.0); Lymphocyte % 14.7 % (19-41); Mean Corp Hgb Conc 32.8 g/dL (32-36); Mean Corpuscular Hgb 30.1 pg (27.0-32.0); Mean Corpuscular Volume 91.9 fL (80-94); Mean Platelet Vol. 8.1 fl (6.2-12.0); Monocyte# 0.47 X10^3/uL; Monocyte% 6.4 % (0-10); NRBC Flagged by Analyzer 0 % (0-5); Neutrophil # 5.52 X10^3/uL (2.7-7.7); Neutrophil % 75.1 % (47-70); Platelet Count 194 K/mm3 (150-450); RBC Distribution Width CV 12.9 % (11.6-14.6); RBC Distribution Width SD 43.1 fl (35.1-43.9); Red Blood Count 4.42 M/mm3 (4.6-6.2); White Blood Count 7.4 K/mm3 (4.4-11.0)
[2018-10-04 10:17] LABS: AST(SGOT) 21 U/L (15-37); Alanine Aminotransfer ALT/SGPT 28 U/L (16-61); Albumin, Serum 3.4 g/dL (3.2-5.0); Alkaline Phosphatase 103 U/L (45-117); Anion Gap 4 (5-15); BUN 33 mg/dL (7-18); BUN/Creat Ratio 18.3 RATIO (10-20); Calcium,Total 8.8 mg/dL (8.5-10.1); Chloride 108 mmol/L (98-107); Cholesterol 115 mg/dL (200); EST Glomerular Filtration Rate 41 mL/min (>60); Est Glom Filt Rate - Afr Amer 49 mL/min (>60); Globulin 3.5 g/dL (2.2-4.2); Glucose 84 mg/dL (74-106); High Density Lipoprotein 38 mg/dL; Potassium 4.4 mmol/L (3.5-5.1); Protein, Total 6.9 g/dL (6.4-8.2); Sodium Level 139 mmol/L (136-145); Triglycerides 138 mg/dL; Very Low Density Lipoprotein 28 mg/dL (5-40)
[2018-10-04 10:29] LABS: Protein, Urine (Random) 69.9 mg/dL (<11.9); Protein:Creat Ratio 1118 mg/g CRE (0-200)
[2018-10-04 10:33] LABS: Hemoglobin A1c 6.7 % (4.2-6.3)
== END | disposition home or self-care (01) ==
LOC: LAB.FUTURE 07:33
PROVIDERS: Family Provider Family Medicine; PCP Family Medicine; Referring Provider Family Medicine; Visit Provider Family Medicine
DX: E11.22 Type 2 diabetes mellitus with diabetic chronic kidney disease (principal); N18.3 Chronic kidney disease, stage 3 (moderate); E78.5 Hyperlipidemia, unspecified
CPT/HCPCS: 36415; 80053; 80061; 82570; 83036; 84156; 85025

== ENCOUNTER → 2019-01-16 07:47 | Outpatient (CLI) | payer OTHER, SELFPAY ==
[2019-01-16 10:17] LABS: Protein, Urine (Random) 87.3 mg/dL (<11.9); Protein:Creat Ratio 1842 mg/g CRE (0-200)
[2019-01-16 10:44] LABS: Hemoglobin A1c 6.6 % (4.2-6.3)
[2019-01-16 11:01] LABS: ALB/GLOB Ratio 0.9 RATIO (0.9-2.4); AST(SGOT) 26 U/L (15-37); Alanine Aminotransfer ALT/SGPT 42 U/L (16-61); Albumin, Serum 3.4 g/dL (3.2-5.0); Alkaline Phosphatase 110 U/L (45-117); Anion Gap 6 (5-15); BUN 34 mg/dL (7-18); BUN/Creat Ratio 18.2 RATIO (10-20); Calcium,Total 8.8 mg/dL (8.5-10.1); Chloride 104 mmol/L (98-107); Creatinine, Serum 1.87 mg/dL (0.70-1.30); EST Glomerular Filtration Rate 39 mL/min (>60); Est Glom Filt Rate - Afr Amer 47 mL/min (>60); Globulin 3.7 g/dL (2.2-4.2); Glucose 114 mg/dL (74-106); Potassium 4.9 mmol/L (3.5-5.1); Protein, Total 7.1 g/dL (6.4-8.2); Sodium Level 138 mmol/L (136-145); Thyroid Stim Hormone (TSH) 1.91 uIU/mL (0.358-3.74); Uric Acid 3.2 mg/dL (3.5-7.2)
[2019-01-16 11:15] LABS: Vitamin D,25 Hydroxy 48.7 ng/mL (29.95-100.01)
== END ==
PROVIDERS: Family Provider Family Medicine; PCP Family Medicine; Referring Provider Family Medicine; Visit Provider Family Medicine
DX: I12.9 Hypertensive chronic kidney disease with stage 1 through stage 4 chronic kidney disease, or unspecified chronic kidney disease (principal); E11.22 Type 2 diabetes mellitus with diabetic chronic kidney disease; N18.3 Chronic kidney disease, stage 3 (moderate); E03.9 Hypothyroidism, unspecified; M10.9 Gout, unspecified
CPT/HCPCS: 36415; 80053; 82306; 82570; 83036; 84156; 84443; 84550

== ENCOUNTER → 2019-05-02 16:14 | Outpatient (CLI) | payer OTHER, SELFPAY ==
--- NOTE | 2019-05-02 16:18 | RAD_ITS ---
STUDY: X-RAY CHEST REASON FOR EXAM: Male, 63 years old. cough and chest congestion x 3 weeks, worse this week TECHNIQUE: PA and lateral views of the chest. COMPARISON: None. FINDINGS: The lungs are clear and expanded. There is no demonstrated pleural abnormality. Normal size heart. Normal mediastinum and eren. Normal visualized pulmonary arteries. Normal visualized aortic arch and descending thoracic aorta. Normal visualized thoracic spine. Normal visualized ribs, clavicles, and shoulders. There is no demonstrated abnormality of the visualized soft tissue structures of the upper abdomen. RAD/Chest PA and Lateral IMPRESSION: Normal x-ray examination of the chest. Electronically Signed: Bennett Adorno DO at 20:43 EDT Tel , Service support ,
== END ==
PROVIDERS: PCP Family Medicine; Referring Provider Family Medicine; Visit Provider Family Medicine
DX: J20.9 Acute bronchitis, unspecified (principal)
CPT/HCPCS: 71046

== ENCOUNTER → 2019-07-12 07:42 | Outpatient (CLI) | payer OTHER, SELFPAY ==
[2019-07-12 10:04] LABS: Absolute Neutrophil Count 5.2 X10^3/uL (2.0-7.7); Basophil# 0.03 X10^3/uL; Basophil% 0.4 % (0-1); Hematocrit 39.7 % (40-54); Hemoglobin 13.2 g/dL (13.0-16.5); Lymphocyte % 17.3 % (19-41); Mean Corp Hgb Conc 33.2 g/dL (32-36); Mean Corpuscular Hgb 30.1 pg (27.0-32.0); Mean Corpuscular Volume 90.4 fL (80-94); Monocyte# 0.66 X10^3/uL; Monocyte% 8.8 % (0-10); NRBC Flagged by Analyzer 0 % (0-5); Neutrophil % 69.1 % (47-70); Platelet Count 220 K/mm3 (150-450); RBC Distribution Width CV 12.6 % (11.6-14.6); RBC Distribution Width SD 41.1 fl (35.1-43.9); Red Blood Count 4.39 M/mm3 (4.6-6.2); White Blood Count 7.5 K/mm3 (4.4-11.0)
[2019-07-12 10:15] LABS: Protein, Urine (Random) 115.8 mg/dL (<11.9); Protein:Creat Ratio 1824 mg/g CRE (0-200)
[2019-07-12 10:37] LABS: ALB/GLOB Ratio 0.9 RATIO (0.9-2.4); AST(SGOT) 24 U/L (15-37); Alanine Aminotransfer ALT/SGPT 31 U/L (16-61); Albumin, Serum 3.2 g/dL (3.2-5.0); Alkaline Phosphatase 104 U/L (45-117); Anion Gap 6 (5-15); BUN 33 mg/dL (7-18); Chloride 106 mmol/L (98-107); Cholesterol 129 mg/dL (200); Creatinine, Serum 1.83 mg/dL (0.70-1.30); EST Glomerular Filtration Rate 40 mL/min (>60); Est Glom Filt Rate - Afr Amer 48 mL/min (>60); Globulin 3.5 g/dL (2.2-4.2); Glucose 89 mg/dL (74-106); High Density Lipoprotein 46 mg/dL; Potassium 4.2 mmol/L (3.5-5.1); Protein, Total 6.7 g/dL (6.4-8.2); Sodium Level 140 mmol/L (136-145); Thyroid Stim Hormone (TSH) 1.91 uIU/mL (0.358-3.74); Triglycerides 77 mg/dL; Uric Acid 5.5 mg/dL (3.5-7.2); Very Low Density Lipoprotein 15 mg/dL (5-40)
[2019-07-12 16:06] LABS: Vitamin D,25 Hydroxy 43.5 ng/mL
== END ==
PROVIDERS: PCP Family Medicine; Referring Provider Family Medicine; Visit Provider Family Medicine
DX: E11.22 Type 2 diabetes mellitus with diabetic chronic kidney disease (principal); I12.9 Hypertensive chronic kidney disease with stage 1 through stage 4 chronic kidney disease, or unspecified chronic kidney disease; N18.3 Chronic kidney disease, stage 3 (moderate); E78.5 Hyperlipidemia, unspecified; M10.9 Gout, unspecified; E03.9 Hypothyroidism, unspecified
CPT/HCPCS: 36415; 80053; 80061; 82306; 82570; 83036; 84156; 84443; 84550; 85025

== ENCOUNTER → 2019-10-15 07:52 | Outpatient (CLI) | payer OTHER, SELFPAY ==
[2019-10-15 10:15] LABS: Absolute Lymphocyte Count 1.09 X10^3/uL (0.83-4.51); Absolute Neutrophil Count 5.4 X10^3/uL (2.0-7.7); Basophil# 0.04 X10^3/uL; Basophil% 0.5 % (0-1); Eosinophils% 4.1 % (0-5); Hematocrit 39.7 % (40-54); Hemoglobin 13.2 g/dL (13.0-16.5); Lymphocyte # 1.09 X10^3/ul (4.0); Lymphocyte % 14.7 % (19-41); Mean Corp Hgb Conc 33.2 g/dL (32-36); Mean Corpuscular Hgb 31.2 pg (27.0-32.0); Mean Corpuscular Volume 93.9 fL (80-94); Monocyte% 6.8 % (0-10); NRBC Flagged by Analyzer 0 % (0-5); Neutrophil # 5.43 X10^3/uL (2.7-7.7); Neutrophil % 73.5 % (47-70); Platelet Count 211 K/mm3 (150-450); RBC Distribution Width CV 13.1 % (11.6-14.6); RBC Distribution Width SD 44.4 fl (35.1-43.9); Red Blood Count 4.23 M/mm3 (4.6-6.2); White Blood Count 7.4 K/mm3 (4.4-11.0)
[2019-10-15 10:45] LABS: Hemoglobin A1c 7.3 % (3.8-5.6)
[2019-10-15 10:48] LABS: ALB/GLOB Ratio 0.9 RATIO (0.9-2.4); AST(SGOT) 21 U/L (15-37); Alanine Aminotransfer ALT/SGPT 31 U/L (16-61); Albumin, Serum 3.3 g/dL (3.2-5.0); Alkaline Phosphatase 111 U/L (45-117); Anion Gap 4 (5-15); BUN 34 mg/dL (7-18); Calcium,Total 8.6 mg/dL (8.5-10.1); Chloride 105 mmol/L (98-107); Cholesterol 115 mg/dL (200); EST Glomerular Filtration Rate 36 mL/min (>60); Est Glom Filt Rate - Afr Amer 43 mL/min (>60); Globulin 3.6 g/dL (2.2-4.2); Glucose 120 mg/dL (74-106); High Density Lipoprotein 41 mg/dL; Phosphorus 3.4 mg/dL (2.5-4.9); Potassium 4.9 mmol/L (3.5-5.1); Protein, Total 6.9 g/dL (6.4-8.2); Sodium Level 138 mmol/L (136-145); Thyroid Stim Hormone (TSH) 2.04 uIU/mL (0.358-3.74); Triglycerides 105 mg/dL; Very Low Density Lipoprotein 21 mg/dL (5-40)
[2019-10-15 11:41] LABS: PTHIN 64.2 pg/mL (18.4-80.1)
== END ==
PROVIDERS: PCP Family Medicine; Referring Provider Family Medicine; Visit Provider Family Medicine
DX: E11.22 Type 2 diabetes mellitus with diabetic chronic kidney disease (principal); N18.3 Chronic kidney disease, stage 3 (moderate); E03.9 Hypothyroidism, unspecified; E78.5 Hyperlipidemia, unspecified
CPT/HCPCS: 36415; 80053; 80061; 82043; 82570; 83036; 83970; 84100; 84443; 85025

== ENCOUNTER → 2020-01-16 07:41 | Outpatient (CLI) | payer OTHER, SELFPAY ==
[2020-01-16 10:14] LABS: Absolute Lymphocyte Count 1.07 X10^3/uL (0.83-4.51); Absolute Neutrophil Count 5.2 X10^3/uL (2.0-7.7); Basophil# 0.04 X10^3/uL; Basophil% 0.6 % (0-1); Eosinophil# 0.35 X10^3/uL; Eosinophils% 4.8 % (0-5); Hematocrit 41.3 % (40-54); Hemoglobin 13.2 g/dL (13.0-16.5); Lymphocyte # 1.07 X10^3/ul (4.0); Lymphocyte % 14.8 % (19-41); Mean Corpuscular Hgb 29.6 pg (27.0-32.0); Mean Corpuscular Volume 92.6 fL (80-94); Mean Platelet Vol. 8.7 fl (6.2-12.0); Monocyte% 6.9 % (0-10); NRBC Flagged by Analyzer 0 % (0-5); Neutrophil # 5.24 X10^3/uL (2.7-7.7); Neutrophil % 72.5 % (47-70); Platelet Count 212 K/mm3 (150-450); RBC Distribution Width CV 12.7 % (11.6-14.6); RBC Distribution Width SD 43.2 fl (35.1-43.9); Red Blood Count 4.46 M/mm3 (4.6-6.2); White Blood Count 7.2 K/mm3 (4.4-11.0)
[2020-01-16 10:25] LABS: PTHIN 88.7 pg/mL (18.4-80.1)
[2020-01-16 10:29] LABS: Vitamin D,25 Hydroxy 35.9 ng/mL
[2020-01-16 10:32] LABS: Hemoglobin A1c 7.1 % (3.8-5.6)
[2020-01-16 10:36] LABS: AST(SGOT) 21 U/L (15-37); Alanine Aminotransfer ALT/SGPT 37 U/L (16-61); Albumin, Serum 3.6 g/dL (3.2-5.0); Alkaline Phosphatase 123 U/L (45-117); Anion Gap 2 (5-15); BUN 45 mg/dL (7-18); BUN/Creat Ratio 20.6 RATIO (10-20); Calcium,Total 8.7 mg/dL (8.5-10.1); Chloride 106 mmol/L (98-107); Cholesterol 143 mg/dL (200); Creatinine, Serum 2.18 mg/dL (0.70-1.30); EST Glomerular Filtration Rate 32 mL/min (>60); Est Glom Filt Rate - Afr Amer 39 mL/min (>60); Globulin 3.5 g/dL (2.2-4.2); Glucose 148 mg/dL (74-106); High Density Lipoprotein 42 mg/dL; Protein, Total 7.1 g/dL (6.4-8.2); Sodium Level 136 mmol/L (136-145); Thyroid Stim Hormone (TSH) 3.14 uIU/mL (0.358-3.74); Triglycerides 128 mg/dL; Uric Acid 4.4 mg/dL (3.5-7.2); Very Low Density Lipoprotein 26 mg/dL (5-40)
[2020-01-16 10:38] LABS: Protein, Urine (Random) 49.5 mg/dL (<11.9); Protein:Creat Ratio 1897 mg/g CRE (0-200)
== END ==
PROVIDERS: PCP Family Medicine; Referring Provider Family Medicine; Visit Provider Family Medicine
DX: E11.22 Type 2 diabetes mellitus with diabetic chronic kidney disease (principal); N18.30 Chronic kidney disease, stage 3 unspecified; E78.5 Hyperlipidemia, unspecified; E03.9 Hypothyroidism, unspecified; M10.9 Gout, unspecified
CPT/HCPCS: 80053; 80061; 82306; 82570; 83036; 83970; 84156; 84443; 84550; 85025

== ENCOUNTER → 2020-04-27 07:45 | Outpatient (CLI) | payer OTHER, SELFPAY ==
--- NOTE | 2020-04-27 07:47 | US_ITS ---
STUDY: RENAL ULTRASOUND - COMPLETE REASON FOR EXAM: Male, 64 years old. CKD 3 TECHNIQUE: Ultrasound evaluation of the kidneys was performed with real-time and static greenwood-scale imaging. COMPARISON: None. FINDINGS: RIGHT KIDNEY: Normal location of the right kidney, which is normal in size. The right kidney measures 12.0 cm. There is a normal cortex of the right kidney. The renal cortex measures 1.4 cm. 1.8 cm exophytic cyst lower pole the right kidney. Another 1.8 cm cyst lower pole the right kidney. There are no right renal calculi. There is no right hydronephrosis. DISTAL RIGHT URETER: There is non-visualization of the distal right ureter. There is no demonstrated right ureterovesical junction calculus. There is a visualized right ureteral jet. LEFT KIDNEY: Normal location of the left kidney, which is normal in size. The left kidney measures 12.2 cm. There is a normal cortex of the left kidney. The renal cortex measures 1.5 cm. There is no left renal mass or cyst. There are no left renal calculi. There is no left hydronephrosis. DISTAL LEFT URETER: There is non-visualization of the distal left ureter. There is no demonstrated left ureterovesical junction calculus. There is a visualized left ureteral jet. BLADDER: The distended urinary bladder has a volume of 184 ml. The empty urinary bladder has a volume of ml. There is a normal wall thickness of the distended urinary bladder. There is no demonstrated mass within the urinary bladder. There are no demonstrated bladder calculi. US/Kidney and Bladder IMPRESSION: Normal ultrasound of the kidneys and urinary bladder. Electronically Signed: Alec Guevara MD at 9:38 EDT Tel , Service support ,
== END ==
PROVIDERS: PCP Family Medicine; Referring Provider Internal Medicine Nephrology; Visit Provider Internal Medicine Nephrology
DX: N18.32 Chronic kidney disease, stage 3b (principal)
CPT/HCPCS: 76770

== ENCOUNTER → 2020-05-05 07:33 | Outpatient (CLI) | payer OTHER, SELFPAY ==
[2020-05-05 10:05] LABS: Absolute Lymphocyte Count 1.05 X10^3/uL (0.83-4.51); Absolute Neutrophil Count 4.3 X10^3/uL (2.0-7.7); Basophil# 0.04 X10^3/uL; Basophil% 0.6 % (0-1); Eosinophil# 0.35 X10^3/uL; Eosinophils% 5.6 % (0-5); Hematocrit 37.5 % (40-54); Hemoglobin 12.4 g/dL (13.0-16.5); Lymphocyte # 1.05 X10^3/ul (4.0); Lymphocyte % 16.8 % (19-41); Mean Corp Hgb Conc 33.1 g/dL (32-36); Mean Corpuscular Hgb 30.2 pg (27.0-32.0); Mean Corpuscular Volume 91.5 fL (80-94); Mean Platelet Vol. 8.8 fl (6.2-12.0); Monocyte# 0.51 X10^3/uL; Monocyte% 8.2 % (0-10); NRBC Flagged by Analyzer 0 % (0-5); Neutrophil # 4.29 X10^3/uL (2.7-7.7); Neutrophil % 68.6 % (47-70); Platelet Count 202 K/mm3 (150-450); RBC Distribution Width CV 12.7 % (11.6-14.6); RBC Distribution Width SD 41.5 fl (35.1-43.9); White Blood Count 6.3 K/mm3 (4.4-11.0)
[2020-05-05 10:35] LABS: PTHIN 50.6 pg/mL (18.4-80.1)
[2020-05-05 10:42] LABS: AST(SGOT) 26 U/L (15-37); Alanine Aminotransfer ALT/SGPT 43 U/L (16-61); Albumin, Serum 3.3 g/dL (3.2-5.0); Alkaline Phosphatase 104 U/L (45-117); Anion Gap 4 (5-15); BUN 30 mg/dL (7-18); BUN/Creat Ratio 15.3 RATIO (10-20); Calcium,Total 8.8 mg/dL (8.5-10.1); Chloride 104 mmol/L (98-107); Cholesterol 106 mg/dL (200); Creatinine, Serum 1.96 mg/dL (0.70-1.30); EST Glomerular Filtration Rate 37 mL/min (>60); Est Glom Filt Rate - Afr Amer 44 mL/min (>60); Globulin 3.3 g/dL (2.2-4.2); Glucose 96 mg/dL (74-106); High Density Lipoprotein 46 mg/dL; Phosphorus 3.6 mg/dL (2.5-4.9); Potassium 4.3 mmol/L (3.5-5.1); Protein, Total 6.6 g/dL (6.4-8.2); Sodium Level 139 mmol/L (136-145); Thyroid Stim Hormone (TSH) 1.98 uIU/mL (0.358-3.74); Triglycerides 88 mg/dL; Very Low Density Lipoprotein 18 mg/dL (5-40)
[2020-05-05 10:46] LABS: Hemoglobin A1c 7.5 % (3.8-5.6)
[2020-05-05 10:46] LABS: Protein, Urine (Random) 94.1 mg/dL (<11.9); Protein:Creat Ratio 1806 mg/g CRE (0-200)
== END ==
PROVIDERS: PCP Family Medicine; Visit Provider Internal Medicine Nephrology
DX: E03.9 Hypothyroidism, unspecified (principal); I12.9 Hypertensive chronic kidney disease with stage 1 through stage 4 chronic kidney disease, or unspecified chronic kidney disease; E11.22 Type 2 diabetes mellitus with diabetic chronic kidney disease; N18.32 Chronic kidney disease, stage 3b; E78.5 Hyperlipidemia, unspecified
CPT/HCPCS: 80053; 80061; 82570; 83036; 83970; 84100; 84156; 84439; 84443; 85025

== ENCOUNTER → 2020-05-12 09:49 | Outpatient (CLI) | payer OTHER, SELFPAY ==
[2020-05-12 12:57] LABS: Ferritin 271 ng/mL (26-388); Iron 63 ug/dL (65-175); Iron Binding Capacity,Total 358 ug/dL (250-450)
[2020-05-12 12:58] LABS: Vitamin B12 828 pg/mL (211-911)
== END ==
PROVIDERS: PCP Family Medicine; Referring Provider Family Medicine; Visit Provider Family Medicine
DX: D64.9 Anemia, unspecified (principal)
CPT/HCPCS: 36415; 82607; 82728; 82746; 83540; 83550

== ENCOUNTER → 2020-06-11 08:02 | Outpatient (CLI) | payer OTHER, SELFPAY ==
[2020-06-11 10:10] LABS: Creatinine, Serum 2.23 mg/dL (0.70-1.30); EST Glomerular Filtration Rate 32 mL/min (>60); Est Glom Filt Rate - Afr Amer 38 mL/min (>60)
[2020-06-11 10:24] LABS: 24 Hour Urine Protein 3035.6 mg/24HR (<150 MG/24HR); 24HR. UA Prot. Total Volume 2725 mL; Creat.Clear Total Volume 2725 mL; Creatinine Clearance 58 ml/min (100-200); Creatinine Serum Creat 2.2 mg/dL (0.8-1.3); Creatinine Urine 67.8 mg/dL (NO RANGE EST.); EST Glomerular Filtration Rate 32 mL/min (>60); Est Glom Filt Rate - Afr Amer 38 mL/min (>60); Urine Protein (24 Hour) 111.4 mg/dL (<11.9)
== END ==
LOC: LABSPEC 08:04 → MTLAB 08:11
PROVIDERS: PCP Family Medicine; Referring Provider Internal Medicine Nephrology; Visit Provider Internal Medicine Nephrology
DX: N18.32 Chronic kidney disease, stage 3b (principal)
CPT/HCPCS: 36415; 81050; 82565; 82575; 84156

== ENCOUNTER → 2020-07-03 07:39 | Outpatient (CLI) | payer OTHER, SELFPAY ==
[2020-07-03 10:14] LABS: Absolute Lymphocyte Count 1.08 X10^3/uL (0.83-4.51); Absolute Neutrophil Count 5.4 X10^3/uL (2.0-7.7); Basophil# 0.03 X10^3/uL; Basophil% 0.4 % (0-1); Eosinophil# 0.26 X10^3/uL; Eosinophils% 3.5 % (0-5); Hemoglobin 12.4 g/dL (13.0-16.5); Lymphocyte # 1.08 X10^3/ul (0.83-4.51); Lymphocyte % 14.6 % (19-41); Mean Corp Hgb Conc 32.6 g/dL (32-36); Mean Corpuscular Hgb 30.3 pg (27.0-32.0); Mean Corpuscular Volume 92.9 fL (80-94); Mean Platelet Vol. 8.9 fl (6.2-12.0); Monocyte# 0.63 X10^3/uL; Monocyte% 8.5 % (0-10); NRBC Flagged by Analyzer 0 % (0-5); Neutrophil # 5.38 X10^3/uL (2.7-7.7); Neutrophil % 72.7 % (47-70); Platelet Count 207 K/mm3 (150-450); RBC Distribution Width CV 13.2 % (11.6-14.6); RBC Distribution Width SD 44.7 fl (35.1-43.9); Red Blood Count 4.09 M/mm3 (4.6-6.2); White Blood Count 7.4 K/mm3 (4.4-11.0)
[2020-07-03 10:44] LABS: ALB/GLOB Ratio 1.1 RATIO (0.9-2.4); AST(SGOT) 21 U/L (15-37); Alanine Aminotransfer ALT/SGPT 25 U/L (16-61); Albumin, Serum 3.2 g/dL (3.2-5.0); Alkaline Phosphatase 104 U/L (45-117); Anion Gap 6 (5-15); BUN 27 mg/dL (7-18); BUN/Creat Ratio 12.4 RATIO (10-20); Calcium,Total 8.9 mg/dL (8.5-10.1); Chloride 102 mmol/L (98-107); Cholesterol 107 mg/dL (200); Creatinine, Serum 2.17 mg/dL (0.70-1.30); EST Glomerular Filtration Rate 33 mL/min (>60); Est Glom Filt Rate - Afr Amer 39 mL/min (>60); Globulin 2.8 g/dL (2.2-4.2); Glucose 93 mg/dL (74-106); High Density Lipoprotein 46 mg/dL; Phosphorus 4.4 mg/dL (2.5-4.9); Potassium 4.6 mmol/L (3.5-5.1); Sodium Level 139 mmol/L (136-145); T4 Free Direct 1.13 ng/dL (0.76-1.46); Thyroid Stim Hormone (TSH) 0.93 uIU/mL (0.358-3.74); Triglycerides 84 mg/dL; Very Low Density Lipoprotein 17 mg/dL (5-40)
[2020-07-03 10:48] LABS: PTHIN 41.1 pg/mL (18.4-80.1)
[2020-07-03 12:17] LABS: Bacteria 0 SEEN /hpf (None Seen); Mucous, Urine 0 SEEN /hpf (<or=2+); White Blood Cells 0 SEEN /hpf (0-5)
[2020-07-03 15:31] LABS: Color, Urine Yellow (Yellow); Glucose, Dipstick 50 mg/dl (Normal); Ketone-Dipstick Negative (Negative); Leukocyte Esterase-Dipstick Negative /ul (Negative); Nitrite-Dipstick Negative (Negative); Occult Blood-Urine 10 /ul (Negative); Protein-Dipstick 100 mg/dl (Negative); Urine Bilirubin Dipstick Negative (Negative); Urine Clarity Sl. Cloudy (Clear); Urine Urobilinogen Normal (Normal)
[2020-07-03 15:38] LABS: Red Blood Cells-Urine 0-5 SEEN /hpf (0-5); Squamous Epithelial Cells - UA 0-5 SEEN /hpf (0-5)
[2020-07-07 18:59] LABS: Vitamin D 1,25-Dihydroxy 15.3 pg/mL (19.9-79.3)
== END ==
PROVIDERS: PCP Family Medicine; Referring Provider Internal Medicine Nephrology; Visit Provider Internal Medicine Nephrology
DX: E11.22 Type 2 diabetes mellitus with diabetic chronic kidney disease (principal); E11.59 Type 2 diabetes mellitus with other circulatory complications; E11.69 Type 2 diabetes mellitus with other specified complication; E03.9 Hypothyroidism, unspecified; N18.9 Chronic kidney disease, unspecified
CPT/HCPCS: 36415; 80053; 80061; 81001; 82652; 83970; 84100; 84439; 84443; 85025; 87086; 87088

== ENCOUNTER → 2020-08-13 07:35 | Outpatient (CLI) | payer OTHER, SELFPAY ==
[2020-08-13 10:11] LABS: Absolute Lymphocyte Count 1.23 X10^3/uL (0.83-4.51); Absolute Neutrophil Count 5.5 X10^3/uL (2.0-7.7); Basophil# 0.05 X10^3/uL; Basophil% 0.7 % (0-1); Eosinophil# 0.37 X10^3/uL; Eosinophils% 4.8 % (0-5); Hematocrit 40.5 % (40-54); Hemoglobin 13.1 g/dL (13.0-16.5); Lymphocyte # 1.23 X10^3/ul (0.83-4.51); Lymphocyte % 16.1 % (19-41); Mean Corp Hgb Conc 32.3 g/dL (32-36); Mean Corpuscular Hgb 30.3 pg (27.0-32.0); Mean Corpuscular Volume 93.8 fL (80-94); Monocyte# 0.51 X10^3/uL; Monocyte% 6.7 % (0-10); NRBC Flagged by Analyzer 0 % (0-5); Neutrophil # 5.45 X10^3/uL (2.7-7.7); Neutrophil % 71.4 % (47-70); Platelet Count 231 K/mm3 (150-450); RBC Distribution Width SD 44.7 fl (35.1-43.9); Red Blood Count 4.32 M/mm3 (4.6-6.2); White Blood Count 7.6 K/mm3 (4.4-11.0)
[2020-08-13 10:31] LABS: Hemoglobin A1c 6.6 % (3.8-5.6)
[2020-08-13 10:35] LABS: PTHIN 94.5 pg/mL (18.4-80.1)
[2020-08-13 10:39] LABS: Cholesterol 131 mg/dL (200); High Density Lipoprotein 44 mg/dL; T4 Free Direct 0.94 ng/dL (0.76-1.46); Thyroid Stim Hormone (TSH) 2.31 uIU/mL (0.358-3.74); Triglycerides 106 mg/dL; Very Low Density Lipoprotein 21 mg/dL (5-40); Vitamin D,25 Hydroxy 42.8 ng/mL
[2020-08-13 11:14] LABS: Microalbumin:Creatinine Ratio 1277.1 mg/g CRE (<30 mg/g CRE); Protein, Urine (Random) 149.3 mg/dL (<11.9); Protein:Creat Ratio 1616 mg/g CRE (0-200)
== END ==
PROVIDERS: PCP Family Medicine; Referring Provider Family Medicine; Visit Provider Family Medicine
DX: E11.22 Type 2 diabetes mellitus with diabetic chronic kidney disease (principal); N18.9 Chronic kidney disease, unspecified; E03.9 Hypothyroidism, unspecified; E21.3 Hyperparathyroidism, unspecified
CPT/HCPCS: 80061; 82043; 82306; 82570; 83036; 83970; 84156; 84439; 84443; 85025

== ENCOUNTER → 2020-09-24 09:30 | Outpatient (CLI) | payer OTHER, SELFPAY ==
[2020-09-24 10:54] LABS: Albumin, Serum 3.3 g/dL (3.2-5.0); BUN 42 mg/dL (7-18); BUN/Creat Ratio 20.7 RATIO (10-20); Calcium,Total 9.1 mg/dL (8.5-10.1); Chloride 104 mmol/L (98-107); Creatinine, Serum 2.03 mg/dL (0.70-1.30); EST Glomerular Filtration Rate 35 mL/min (>60); Est Glom Filt Rate - Afr Amer 43 mL/min (>60); Glucose 156 mg/dL (74-106); Phosphorus 3.2 mg/dL (2.5-4.9); Potassium 4.7 mmol/L (3.5-5.1); Sodium Level 137 mmol/L (136-145)
== END ==
PROVIDERS: PCP Family Medicine; Visit Provider Internal Medicine Nephrology
DX: E11.22 Type 2 diabetes mellitus with diabetic chronic kidney disease (principal); N18.32 Chronic kidney disease, stage 3b
CPT/HCPCS: 36415; 80069

== ENCOUNTER → 2021-01-25 08:08 | Outpatient (CLI) | payer OTHER, SELFPAY ==
[2021-01-25 08:12] LABS: Bacteria 0 SEEN /hpf (None Seen); Mucous, Urine 0 SEEN /hpf (<or=2+); Red Blood Cells-Urine 0 SEEN /hpf (0-5); Squamous Epithelial Cells - UA 0 SEEN /hpf (0-5); White Blood Cells 0 SEEN /hpf (0-5)
[2021-01-25 10:17] LABS: Absolute Lymphocyte Count 1.08 X10^3/uL (0.83-4.51); Absolute Neutrophil Count 4.6 X10^3/uL (2.0-7.7); Basophil# 0.04 X10^3/uL; Basophil% 0.6 % (0-1); Eosinophil# 0.26 X10^3/uL; Hemoglobin 12.4 g/dL (13.0-16.5); Lymphocyte # 1.08 X10^3/ul (0.83-4.51); Lymphocyte % 16.7 % (19-41); Mean Corp Hgb Conc 32.6 g/dL (32-36); Mean Corpuscular Hgb 29.9 pg (27.0-32.0); Mean Corpuscular Volume 91.6 fL (80-94); Mean Platelet Vol. 8.6 fl (6.2-12.0); Monocyte# 0.51 X10^3/uL; Monocyte% 7.9 % (0-10); NRBC Flagged by Analyzer 0 % (0-5); Neutrophil # 4.57 X10^3/uL (2.7-7.7); Neutrophil % 70.5 % (47-70); Platelet Count 226 K/mm3 (150-450); RBC Distribution Width CV 12.6 % (11.6-14.6); RBC Distribution Width SD 41.9 fl (35.1-43.9); Red Blood Count 4.15 M/mm3 (4.6-6.2); White Blood Count 6.5 K/mm3 (4.4-11.0)
[2021-01-25 10:30] LABS: Color, Urine Yellow (Yellow); Glucose, Dipstick Normal (Normal); Ketone-Dipstick Negative (Negative); Leukocyte Esterase-Dipstick Negative /ul (Negative); Nitrite-Dipstick Negative (Negative); Occult Blood-Urine 10 /ul (Negative); Protein-Dipstick 100 mg/dl (Negative); Urine Bilirubin Dipstick Negative (Negative); Urine Clarity Clear (Clear); Urine Urobilinogen Normal (Normal)
[2021-01-25 10:38] LABS: Hemoglobin A1c 7.3 % (3.8-5.6)
[2021-01-25 10:45] LABS: PTHIN 48.8 pg/mL (18.4-80.1)
[2021-01-25 10:47] LABS: Vitamin D,25 Hydroxy 38.9 ng/mL
[2021-01-25 11:03] LABS: ALB/GLOB Ratio 0.8 RATIO (0.9-2.4); AST(SGOT) 29 U/L (15-37); Alanine Aminotransfer ALT/SGPT 42 U/L (16-61); Albumin, Serum 3.1 g/dL (3.2-5.0); Alkaline Phosphatase 101 U/L (45-117); Anion Gap 5 (5-15); BUN 39 mg/dL (7-18); BUN/Creat Ratio 17.6 RATIO (10-20); Calcium,Total 9.3 mg/dL (8.5-10.1); Chloride 105 mmol/L (98-107); Cholesterol 122 mg/dL (200); Creatinine, Serum 2.21 mg/dL (0.70-1.30); EST Glomerular Filtration Rate 32 mL/min (>60); Est Glom Filt Rate - Afr Amer 39 mL/min (>60); Globulin 3.7 g/dL (2.2-4.2); Glucose 98 mg/dL (74-106); High Density Lipoprotein 41 mg/dL; Potassium 4.8 mmol/L (3.5-5.1); Protein, Total 6.8 g/dL (6.4-8.2); Sodium Level 137 mmol/L (136-145); Thyroid Stim Hormone (TSH) 1.94 uIU/mL (0.358-3.74); Triglycerides 107 mg/dL; Uric Acid 3.6 mg/dL (3.5-7.2); Very Low Density Lipoprotein 21 mg/dL (5-40)
[2021-01-25 11:16] LABS: Microalbumin:Creatinine Ratio 1793.7 mg/g CRE (<30 mg/g CRE); Protein, Urine (Random) 86.3 mg/dL (<11.9); Protein:Creat Ratio 2253 mg/g CRE (0-200)
== END ==
PROVIDERS: PCP Family Medicine; Referring Provider Family Medicine; Visit Provider Family Medicine
DX: E03.9 Hypothyroidism, unspecified (principal); E11.22 Type 2 diabetes mellitus with diabetic chronic kidney disease; E21.3 Hyperparathyroidism, unspecified; M10.9 Gout, unspecified; N18.9 Chronic kidney disease, unspecified
CPT/HCPCS: 36415; 80053; 80061; 81001; 82043; 82306; 82570; 83036; 83970; 84156; 84439; 84443; 84550; 85025

== ENCOUNTER 2021-03-25 07:44 | Outpatient (CLI) | payer OTHER, SELFPAY ==
[2021-03-25 09:57] LABS: Hematocrit 38.6 % (40-54); Mean Corp Hgb Conc 33.7 g/dL (32-36); Mean Corpuscular Volume 92.1 fL (80-94); Mean Platelet Vol. 8.7 fl (6.2-12.0); Platelet Count 225 K/mm3 (150-450); RBC Distribution Width CV 12.8 % (11.6-14.6); RBC Distribution Width SD 42.9 fl (35.1-43.9); Red Blood Count 4.19 M/mm3 (4.6-6.2); White Blood Count 6.3 K/mm3 (4.4-11.0)
[2021-03-25 10:08] LABS: Albumin, Serum 3.2 g/dL (3.2-5.0); BUN 34 mg/dL (7-18); BUN/Creat Ratio 16.1 RATIO (10-20); Calcium,Total 8.7 mg/dL (8.5-10.1); Chloride 108 mmol/L (98-107); Creatinine, Serum 2.11 mg/dL (0.70-1.30); EST Glomerular Filtration Rate 34 mL/min (>60); Est Glom Filt Rate - Afr Amer 41 mL/min (>60); Glucose 88 mg/dL (74-106); Phosphorus 3.5 mg/dL (2.5-4.9); Potassium 4.8 mmol/L (3.5-5.1); Protein:Creat Ratio 3218 mg/g CRE (0-200); Sodium Level 140 mmol/L (136-145)
== END 2021-03-25 23:59 | disposition home or self-care (01) ==
LOC: MTLAB 07:45
PROVIDERS: PCP Family Medicine; Referring Provider Internal Medicine Nephrology; Visit Provider Internal Medicine Nephrology
DX: N18.32 Chronic kidney disease, stage 3b (principal); E11.21 Type 2 diabetes mellitus with diabetic nephropathy; E11.22 Type 2 diabetes mellitus with diabetic chronic kidney disease
CPT/HCPCS: 36415; 80069; 82570; 84156; 85027

== ENCOUNTER 2021-04-22 07:53 | Outpatient (CLI) | payer OTHER, SELFPAY ==
[2021-04-22 10:10] LABS: Absolute Lymphocyte Count 1.08 X10^3/uL (0.83-4.51); Absolute Neutrophil Count 4.5 X10^3/uL (2.0-7.7); Basophil# 0.05 X10^3/uL; Basophil% 0.8 % (0-1); Eosinophil# 0.21 X10^3/uL; Eosinophils% 3.3 % (0-5); Hematocrit 37.6 % (40-54); Hemoglobin 12.7 g/dL (13.0-16.5); Lymphocyte # 1.08 X10^3/ul (0.83-4.51); Lymphocyte % 16.9 % (19-41); Mean Corp Hgb Conc 33.8 g/dL (32-36); Mean Corpuscular Hgb 30.6 pg (27.0-32.0); Mean Corpuscular Volume 90.6 fL (80-94); Mean Platelet Vol. 8.9 fl (6.2-12.0); Monocyte# 0.58 X10^3/uL; Monocyte% 9.1 % (0-10); NRBC Flagged by Analyzer 0 % (0-5); Neutrophil # 4.45 X10^3/uL (2.7-7.7); Neutrophil % 69.6 % (47-70); Platelet Count 193 K/mm3 (150-450); RBC Distribution Width CV 13.2 % (11.6-14.6); RBC Distribution Width SD 42.7 fl (35.1-43.9); Red Blood Count 4.15 M/mm3 (4.6-6.2); White Blood Count 6.4 K/mm3 (4.4-11.0)
[2021-04-22 10:23] LABS: Vitamin D,25 Hydroxy 31.6 ng/mL
[2021-04-22 10:27] LABS: Protein, Urine (Random) 124.7 mg/dL (<11.9); Protein:Creat Ratio 2603 mg/g CRE (0-200)
[2021-04-22 10:34] LABS: ALB/GLOB Ratio 0.9 RATIO (0.9-2.4); AST(SGOT) 21 U/L (15-37); Alanine Aminotransfer ALT/SGPT 29 U/L (16-61); Albumin, Serum 3.1 g/dL (3.2-5.0); Alkaline Phosphatase 114 U/L (45-117); Anion Gap 3 (5-15); BUN 31 mg/dL (7-18); BUN/Creat Ratio 14.2 RATIO (10-20); Chloride 106 mmol/L (98-107); Cholesterol 122 mg/dL (200); Creatinine, Serum 2.19 mg/dL (0.70-1.30); EST Glomerular Filtration Rate 32 mL/min (>60); Est Glom Filt Rate - Afr Amer 39 mL/min (>60); Globulin 3.3 g/dL (2.2-4.2); Glucose 126 mg/dL (74-106); High Density Lipoprotein 39 mg/dL; Potassium 4.9 mmol/L (3.5-5.1); Protein, Total 6.4 g/dL (6.4-8.2); Sodium Level 137 mmol/L (136-145); T4 Free Direct 0.98 ng/dL (0.76-1.46); Thyroid Stim Hormone (TSH) 4.84 uIU/mL (0.358-3.74); Triglycerides 115 mg/dL; Very Low Density Lipoprotein 23 mg/dL (5-40)
== END 2021-04-22 23:59 | disposition home or self-care (01) ==
LOC: MTLAB 07:54
PROVIDERS: PCP Family Medicine; Referring Provider Family Medicine; Visit Provider Family Medicine
DX: I25.10 Atherosclerotic heart disease of native coronary artery without angina pectoris (principal); E11.59 Type 2 diabetes mellitus with other circulatory complications; E11.22 Type 2 diabetes mellitus with diabetic chronic kidney disease; N18.9 Chronic kidney disease, unspecified; E03.9 Hypothyroidism, unspecified
CPT/HCPCS: 80053; 80061; 82306; 82570; 83036; 84156; 84439; 84443; 85025

== ENCOUNTER → 2021-07-22 | Outpatient (CLI) | payer OTHER, SELFPAY ==
[2021-07-22 10:42] LABS: Hemoglobin A1c 6.7 % (3.8-5.6)
[2021-07-22 10:48] LABS: ALB/GLOB Ratio 0.9 RATIO (0.9-2.4); AST(SGOT) 23 U/L (15-37); Alanine Aminotransfer ALT/SGPT 28 U/L (16-61); Alkaline Phosphatase 98 U/L (45-117); Anion Gap 3 (5-15); BUN 36 mg/dL (7-18); BUN/Creat Ratio 18.1 RATIO (10-20); Calcium,Total 8.4 mg/dL (8.5-10.1); Chloride 107 mmol/L (98-107); Cholesterol 121 mg/dL (200); Creatinine, Serum 1.99 mg/dL (0.70-1.30); EST Glomerular Filtration Rate 36 mL/min (>60); Est Glom Filt Rate - Afr Amer 43 mL/min (>60); Globulin 3.4 g/dL (2.2-4.2); Glucose 123 mg/dL (74-106); High Density Lipoprotein 47 mg/dL; Potassium 4.5 mmol/L (3.5-5.1); Protein, Total 6.4 g/dL (6.4-8.2); Sodium Level 139 mmol/L (136-145); Thyroid Stim Hormone (TSH) 1.44 uIU/mL (0.358-3.74); Triglycerides 132 mg/dL; Very Low Density Lipoprotein 26 mg/dL (5-40)
== END | disposition home or self-care (01) ==
LOC: MTLAB 07:37
PROVIDERS: PCP Family Medicine; Referring Provider Family Medicine; Visit Provider Family Medicine
DX: E11.69 Type 2 diabetes mellitus with other specified complication (principal); E03.9 Hypothyroidism, unspecified
CPT/HCPCS: 36415; 80053; 80061; 83036; 84443

== ENCOUNTER → 2021-10-26 | Outpatient (CLI) | payer OTHER, SELFPAY ==
[2021-10-26 09:53] LABS: Absolute Lymphocyte Count 1.11 X10^3/uL (0.83-4.51); Absolute Neutrophil Count 5.1 X10^3/uL (2.0-7.7); Basophil# 0.05 X10^3/uL; Basophil% 0.7 % (0-1); Eosinophil# 0.32 X10^3/uL; Eosinophils% 4.5 % (0-5); Hematocrit 42.3 % (40-54); Lymphocyte # 1.11 X10^3/ul (0.83-4.51); Lymphocyte % 15.5 % (19-41); Mean Corp Hgb Conc 33.1 g/dL (32-36); Mean Corpuscular Volume 93.8 fL (80-94); Mean Platelet Vol. 9.1 fl (6.2-12.0); Monocyte# 0.62 X10^3/uL; Monocyte% 8.6 % (0-10); NRBC Flagged by Analyzer 0 % (0-5); Neutrophil # 5.06 X10^3/uL (2.7-7.7); Neutrophil % 70.6 % (47-70); Platelet Count 196 K/mm3 (150-450); RBC Distribution Width SD 44.3 fl (35.1-43.9); Red Blood Count 4.51 M/mm3 (4.6-6.2); White Blood Count 7.2 K/mm3 (4.4-11.0)
[2021-10-26 10:13] LABS: Hemoglobin A1c 6.4 % (3.8-5.6)
[2021-10-26 10:21] LABS: ALB/GLOB Ratio 0.9 RATIO (0.9-2.4); AST(SGOT) 25 U/L (15-37); Alanine Aminotransfer ALT/SGPT 37 U/L (16-61); Albumin, Serum 3.2 g/dL (3.2-5.0); Alkaline Phosphatase 114 U/L (45-117); Anion Gap 5 (5-15); BUN 33 mg/dL (7-18); BUN/Creat Ratio 14.8 RATIO (10-20); Calcium,Total 9.1 mg/dL (8.5-10.1); Chloride 103 mmol/L (98-107); Cholesterol 111 mg/dL (200); Creatinine, Serum 2.23 mg/dL (0.70-1.30); EST Glomerular Filtration Rate 31 mL/min (>60); Est Glom Filt Rate - Afr Amer 38 mL/min (>60); Globulin 3.5 g/dL (2.2-4.2); Glucose 70 mg/dL (74-106); High Density Lipoprotein 47 mg/dL; Potassium 4.4 mmol/L (3.5-5.1); Protein, Total 6.7 g/dL (6.4-8.2); Sodium Level 138 mmol/L (136-145); T4 Free Direct 0.97 ng/dL (0.76-1.46); Thyroid Stim Hormone (TSH) 3.43 uIU/mL (0.358-3.74); Triglycerides 72 mg/dL; Uric Acid 3.5 mg/dL (3.5-7.2); Very Low Density Lipoprotein 14 mg/dL (5-40)
== END | disposition home or self-care (01) ==
LOC: MTLAB 07:50
PROVIDERS: PCP Family Medicine; Referring Provider Family Medicine; Visit Provider Family Medicine
DX: M10.9 Gout, unspecified (principal); E11.9 Type 2 diabetes mellitus without complications; E03.9 Hypothyroidism, unspecified
CPT/HCPCS: 36415; 80053; 80061; 82043; 82570; 83036; 84439; 84443; 84550; 85025

== ENCOUNTER → 2021-11-15 | Outpatient (CLI) | payer OTHER, SELFPAY | END | disposition home or self-care (01) | LOC: LAB.FUTURE 07:54 | PROVIDERS: PCP Family Medicine; Visit Provider Internal Medicine Nephrology | DX: E11.21 Type 2 diabetes mellitus with diabetic nephropathy (principal) ==

== ENCOUNTER → 2021-11-22 | Outpatient (CLI) | payer OTHER, SELFPAY ==
[2021-11-22 10:35] LABS: 24 Hour Urine Protein 2988.4 mg/24HR (<150 MG/24HR); 24HR. UA Prot. Total Volume 2950 mL; Urine Protein (24 Hour) 101.3 mg/dL (<11.9)
[2021-11-22 10:39] LABS: Albumin, Serum 3.1 g/dL (3.2-5.0); BUN 31 mg/dL (7-18); BUN/Creat Ratio 13.5 RATIO (10-20); Calcium,Total 8.9 mg/dL (8.5-10.1); Chloride 104 mmol/L (98-107); EST Glomerular Filtration Rate 30 mL/min (>60); Est Glom Filt Rate - Afr Amer 37 mL/min (>60); Glucose 81 mg/dL (74-106); Phosphorus 3.3 mg/dL (2.5-4.9); Potassium 4.4 mmol/L (3.5-5.1); Sodium Level 140 mmol/L (136-145)
[2021-11-22 10:53] LABS: Creat.Clear Total Volume 2950 mL; Creatinine Clearance 32 ml/min (100-200); Creatinine Serum Creat 2.3 mg/dL (0.8-1.3); Creatinine Urine 35.5 mg/dL (NO RANGE EST.); EST Glomerular Filtration Rate 30 mL/min (>60); Est Glom Filt Rate - Afr Amer 37 mL/min (>60)
== END | disposition home or self-care (01) ==
PROVIDERS: PCP Family Medicine; Referring Provider Internal Medicine Nephrology; Visit Provider Internal Medicine Nephrology
DX: E11.21 Type 2 diabetes mellitus with diabetic nephropathy (principal); N18.32 Chronic kidney disease, stage 3b
CPT/HCPCS: 36415; 80069; 81050; 82575; 84156

== ENCOUNTER → 2021-12-23 | Outpatient (CLI) | payer OTHER, SELFPAY ==
[2021-12-23 10:20] LABS: Albumin, Serum 3.2 g/dL (3.2-5.0); BUN 34 mg/dL (7-18); BUN/Creat Ratio 14.2 RATIO (10-20); Calcium,Total 9.1 mg/dL (8.5-10.1); Chloride 105 mmol/L (98-107); Creatinine, Serum 2.39 mg/dL (0.70-1.30); EST Glomerular Filtration Rate 29 mL/min (>60); Est Glom Filt Rate - Afr Amer 35 mL/min (>60); Glucose 93 mg/dL (74-106); Phosphorus 3.4 mg/dL (2.5-4.9); Potassium 4.3 mmol/L (3.5-5.1); Sodium Level 141 mmol/L (136-145)
== END | disposition home or self-care (01) ==
LOC: MTLAB 07:43
PROVIDERS: PCP Family Medicine; Referring Provider Internal Medicine Nephrology; Visit Provider Internal Medicine Nephrology
DX: N18.32 Chronic kidney disease, stage 3b (principal)
CPT/HCPCS: 36415; 80069

== ENCOUNTER → 2022-01-24 | Outpatient (CLI) | payer OTHER, SELFPAY ==
[2022-01-24 10:02] LABS: Absolute Lymphocyte Count 1.17 X10^3/uL (0.83-4.51); Absolute Neutrophil Count 5.6 X10^3/uL (2.0-7.7); Basophil# 0.04 X10^3/uL; Basophil% 0.5 % (0-1); Eosinophil# 0.35 X10^3/uL; Eosinophils% 4.5 % (0-5); Hematocrit 42.1 % (40-54); Hemoglobin 13.7 g/dL (13.0-16.5); Lymphocyte # 1.17 X10^3/ul (0.83-4.51); Lymphocyte % 14.9 % (19-41); Mean Corp Hgb Conc 32.5 g/dL (32-36); Mean Corpuscular Hgb 30.4 pg (27.0-32.0); Mean Corpuscular Volume 93.6 fL (80-94); Mean Platelet Vol. 9.1 fl (6.2-12.0); Monocyte# 0.63 X10^3/uL; NRBC Flagged by Analyzer 0 % (0-5); Neutrophil % 71.6 % (47-70); Platelet Count 221 K/mm3 (150-450); RBC Distribution Width CV 13.2 % (11.6-14.6); RBC Distribution Width SD 45.1 fl (35.1-43.9); White Blood Count 7.8 K/mm3 (4.4-11.0)
[2022-01-24 10:21] LABS: Vitamin D,25 Hydroxy 37.2 ng/mL
[2022-01-24 10:53] LABS: ALB/GLOB Ratio 0.9 RATIO (0.9-2.4); AST(SGOT) 22 U/L (15-37); Alanine Aminotransfer ALT/SGPT 31 U/L (16-61); Albumin, Serum 3.2 g/dL (3.2-5.0); Alkaline Phosphatase 121 U/L (45-117); Anion Gap 8 (5-15); BUN 31 mg/dL (7-18); BUN/Creat Ratio 14.5 RATIO (10-20); Calcium,Total 8.9 mg/dL (8.5-10.1); Chloride 102 mmol/L (98-107); Cholesterol 117 mg/dL (200); Creatinine, Serum 2.14 mg/dL (0.70-1.30); EST Glomerular Filtration Rate 33 mL/min (>60); Est Glom Filt Rate - Afr Amer 40 mL/min (>60); Globulin 3.6 g/dL (2.2-4.2); Glucose 89 mg/dL (74-106); High Density Lipoprotein 51 mg/dL; Phosphorus 3.8 mg/dL (2.5-4.9); Potassium 4.4 mmol/L (3.5-5.1); Protein, Total 6.8 g/dL (6.4-8.2); Sodium Level 137 mmol/L (136-145); T4 Free Direct 0.93 ng/dL (0.76-1.46); Triglycerides 103 mg/dL; Very Low Density Lipoprotein 21 mg/dL (5-40)
[2022-01-24 10:56] LABS: Hemoglobin A1c 6.7 % (3.8-5.6)
[2022-01-24 11:01] LABS: Microalbumin:Creatinine Ratio 2435.7 mg/g CRE (<30 mg/g CRE); Protein, Urine (Random) 164.7 mg/dL (<11.9); Protein:Creat Ratio 2825 mg/g CRE (0-200)
== END | disposition home or self-care (01) ==
LOC: MTLAB 07:35
PROVIDERS: PCP Family Medicine; Referring Provider Family Medicine; Visit Provider Family Medicine
DX: I25.10 Atherosclerotic heart disease of native coronary artery without angina pectoris (principal); E11.22 Type 2 diabetes mellitus with diabetic chronic kidney disease; E11.9 Type 2 diabetes mellitus without complications; R80.9 Proteinuria, unspecified; E03.9 Hypothyroidism, unspecified
CPT/HCPCS: 36415; 80053; 80061; 82043; 82306; 82570; 83036; 84100; 84156; 84439; 84443; 85025

== ENCOUNTER → 2022-03-01 | Outpatient (CLI) | payer MEDICARE, OTHER, SELFPAY ==
[2022-03-01 15:32] LABS: Hematocrit 38.6 % (40-54); Hemoglobin 12.8 g/dL (13.0-16.5); Mean Corp Hgb Conc 33.2 g/dL (32-36); Mean Corpuscular Hgb 30.7 pg (27.0-32.0); Mean Corpuscular Volume 92.6 fL (80-94); Mean Platelet Vol. 9.6 fl (6.2-12.0); Platelet Count 212 K/mm3 (150-450); RBC Distribution Width CV 12.8 % (11.6-14.6); RBC Distribution Width SD 43.3 fl (35.1-43.9); Red Blood Count 4.17 M/mm3 (4.6-6.2); White Blood Count 6.7 K/mm3 (4.4-11.0)
[2022-03-01 15:58] LABS: Protein, Urine (Random) 64.1 mg/dL (<11.9); Protein:Creat Ratio 2627 mg/g CRE (0-200)
[2022-03-01 16:19] LABS: Albumin, Serum 3.1 g/dL (3.2-5.0); BUN 40 mg/dL (7-18); BUN/Creat Ratio 16.2 RATIO (10-20); Calcium,Total 8.5 mg/dL (8.5-10.1); Chloride 106 mmol/L (98-107); Creatinine, Serum 2.47 mg/dL (0.70-1.30); EST Glomerular Filtration Rate 28 mL/min (>60); Est Glom Filt Rate - Afr Amer 34 mL/min (>60); Glucose 124 mg/dL (74-106); Phosphorus 3.7 mg/dL (2.5-4.9); Potassium 4.6 mmol/L (3.5-5.1); Sodium Level 139 mmol/L (136-145)
[2022-03-01 16:25] LABS: Vitamin D,25 Hydroxy 41.2 ng/mL
[2022-03-02 08:16] LABS: PTHIN 74.7 pg/mL (18.4-80.1)
== END | disposition home or self-care (01) ==
LOC: MTLAB 12:36
PROVIDERS: PCP Family Medicine; Referring Provider Internal Medicine Nephrology; Visit Provider Internal Medicine Nephrology
DX: E11.22 Type 2 diabetes mellitus with diabetic chronic kidney disease (principal); N18.32 Chronic kidney disease, stage 3b
CPT/HCPCS: 36415; 80069; 82306; 82570; 83970; 84156; 85027

== ENCOUNTER → 2022-05-05 | Outpatient (CLI) | payer MEDICARE, OTHER, SELFPAY ==
[2022-05-05 10:13] LABS: Hemoglobin A1c 6.8 % (3.8-5.6)
[2022-05-05 10:15] LABS: T4 Free Direct 0.86 ng/dL (0.76-1.46); Thyroid Stim Hormone (TSH) 7.47 uIU/mL (0.358-3.74)
== END | disposition home or self-care (01) ==
LOC: MTLAB 07:56
PROVIDERS: PCP Family Medicine; Referring Provider Family Medicine; Visit Provider Family Medicine
DX: E11.9 Type 2 diabetes mellitus without complications (principal); E03.9 Hypothyroidism, unspecified
CPT/HCPCS: 36415; 83036; 84439; 84443

== ENCOUNTER → 2022-06-20 | Outpatient (CLI) | payer MEDICARE, OTHER, SELFPAY ==
[2022-06-20 10:27] LABS: BUN 36 mg/dL (7-18); BUN/Creat Ratio 16.2 RATIO (10-20); Calcium,Total 8.9 mg/dL (8.5-10.1); Chloride 103 mmol/L (98-107); Creatinine, Serum 2.22 mg/dL (0.70-1.30); EST Glomerular Filtration Rate 32 mL/min (>60); Est Glom Filt Rate - Afr Amer 38 mL/min (>60); Glucose 175 mg/dL (74-106); Phosphorus 3.5 mg/dL (2.5-4.9); Potassium 4.5 mmol/L (3.5-5.1); Sodium Level 134 mmol/L (136-145)
[2022-06-20 10:37] LABS: Protein:Creat Ratio 3578 mg/g CRE (0-200)
[2022-06-20 10:43] LABS: PSA,Total - Annual Screen 1.53 ng/mL (0.00-4.00)
== END | disposition home or self-care (01) ==
LOC: MTLAB 07:38
PROVIDERS: Nurse Practitioner Family; PCP Family Medicine; Referring Provider Internal Medicine Nephrology; Visit Provider Internal Medicine Nephrology
DX: N18.32 Chronic kidney disease, stage 3b (principal); Z12.5 Encounter for screening for malignant neoplasm of prostate
CPT/HCPCS: 36415; 80069; 82570; 84153; 84156; G0103

== ENCOUNTER → 2022-07-27 | Outpatient (CLI) | payer MEDICARE, OTHER, SELFPAY ==
[2022-07-27 11:12] LABS: Albumin, Serum 3.1 g/dL (3.2-5.0); BUN 34 mg/dL (7-18); Chloride 104 mmol/L (98-107); EST Glomerular Filtration Rate 36 mL/min (>60); Est Glom Filt Rate - Afr Amer 43 mL/min (>60); Glucose 160 mg/dL (74-106); Phosphorus 3.6 mg/dL (2.5-4.9); Potassium 4.5 mmol/L (3.5-5.1); Sodium Level 136 mmol/L (136-145)
== END | disposition home or self-care (01) ==
PROVIDERS: PCP Family Medicine; Referring Provider Internal Medicine Nephrology; Visit Provider Internal Medicine Nephrology
DX: E11.21 Type 2 diabetes mellitus with diabetic nephropathy (principal); E11.22 Type 2 diabetes mellitus with diabetic chronic kidney disease; N18.32 Chronic kidney disease, stage 3b
CPT/HCPCS: 36415; 80069

== ENCOUNTER → 2022-08-12 | Outpatient (CLI) | payer MEDICARE, OTHER, SELFPAY ==
[2022-08-12 13:20] LABS: ALB/GLOB Ratio 0.8 RATIO (0.9-2.4); AST(SGOT) 22 U/L (15-37); Alanine Aminotransfer ALT/SGPT 23 U/L (16-61); Alkaline Phosphatase 114 U/L (45-117); Anion Gap 7 (5-15); BUN 42 mg/dL (7-18); BUN/Creat Ratio 17.1 RATIO (10-20); CPK Total, Creatine Kinase 249 U/L (39-308); Calcium,Total 8.9 mg/dL (8.5-10.1); Chloride 104 mmol/L (98-107); Creatinine, Serum 2.45 mg/dL (0.70-1.30); EST Glomerular Filtration Rate 28 mL/min (>60); Est Glom Filt Rate - Afr Amer 34 mL/min (>60); Ferritin 148 ng/mL (26-388); Globulin 3.7 g/dL (2.2-4.2); Glucose 193 mg/dL (74-106); Magnesium 2.3 mg/dL (1.6-2.6); Potassium 4.6 mmol/L (3.5-5.1); Protein, Total 6.7 g/dL (6.4-8.2); Sodium Level 135 mmol/L (136-145)
== END | disposition home or self-care (01) ==
LOC: LAB.FUTURE 09:34
PROVIDERS: PCP Family Medicine; Visit Provider Internal Medicine Nephrology
DX: E11.22 Type 2 diabetes mellitus with diabetic chronic kidney disease (principal); E11.21 Type 2 diabetes mellitus with diabetic nephropathy; N18.32 Chronic kidney disease, stage 3b
CPT/HCPCS: 36415; 80053; 82550; 82728; 83735

== ENCOUNTER → 2022-08-24 | Outpatient (CLI) | payer MEDICARE, OTHER, SELFPAY ==
--- NOTE | 2022-08-24 08:37 | ECHOD_ITS ---
Reason For Study: SOB Procedure This was a 2D Doppler, Color Flow transthoracic echocardiogram. Myocardial strain analysis was performed in this exam to aid in the assessment of cardiac function. Exam performed in department. Left Ventricle Severely dilated left ventricle. The estimated ejection fraction is 25 %. Severe global left ventricular systolic dysfunction. There is severe global hypokinesis of the left ventricle. Right Ventricle Normal RV size. Normal systolic function. TAPSE is 2.4. Atria Normal left atrium. Normal right atrium. Mitral Valve Normal mitral valve. Mild (1+) eccentric mitral valve insufficiency. Tricuspid Valve Normal tricuspid valve. Unable to estimate RV systolic pressure due to insufficient tricuspid regurgitant envelope. Aortic Valve Trisinus/trileaflet aortic valve. Pulmonic Valve Normal pulmonic valve. Great Vessels Normal aortic root. The pulmonary artery is normal size. Normal inferior vena cava. Pericardium/Pleural No pericardial effusion. MMode/2D Measurements & Calculations LVIDd: 6.9 cm IVSd: 0.80 cm LAV(MOD-sp2): 78.8 ml LVIDs: 6.4 cm LVPWd: 0.85 cm RVDd: 2.9 cm FS: 7.3 % LVAd ap4: 50.3 cm2 LVAd ap2: 49.7 cm2 SV(MOD-sp4): 56.1 ml LVLd ap4: 10.5 cm LVLd ap2: 10.4 cm EDV(MOD-sp4): 199.9 ml EDV(MOD-sp2): 202.5 ml EDV(sp4-el): 205.0 ml EDV(sp2-el): 201.9 ml LVAs ap4: 40.5 cm2 LVAs ap2: 40.2 cm2 LVLs ap4: 9.5 cm LVLs ap2: 9.7 cm ESV(MOD-sp4): 143.8 ml ESV(MOD-sp2): 139.3 ml ESV(sp4-el): 146.4 ml ESV(sp2-el): 142.3 ml EF(MOD-sp4): 28.1 % EF(MOD-sp2): 31.2 % EF(sp4-el): 28.6 % SV(MOD-sp2): 63.2 ml SV(sp4-el): 58.6 ml LA A4 area: 18.8 cm2 LA dimension(2D): 4.2 cm RA A4 area: 13.8 cm2 TAPSE: 2.4 cm Time Measurements MV dec time: 0.12 sec Doppler Measurements & Calculations MV E max horace: 85.2 cm/sec Lat Peak E' Horace: 4.8 cm/sec Med Peak E' Horace: 5.1 cm/sec MV A max horace: 142.4 cm/sec E/E' lat: 17.7 E/E' med: 16.7 MV E/A: 0.60 MV V2 max: 141.7 cm/sec Ao V2 max: 148.0 cm/sec MV max P.0 mmHg MV dec slope: 883.0 cm/sec2 Ao max P.8 mmHg MV V2 mean: 88.4 cm/sec Ao V2 mean: 114.2 cm/sec MV mean P.5 mmHg Ao mean P.7 mmHg MV V2 VTI: 34.3 cm Ao V2 VTI: 32.4 cm AV (velocity ratio): 0.74 LV V1 max: 117.6 cm/sec MR max horace: 619.8 cm/sec PA V2 max: 104.3 cm/sec LV V1 max P.5 mmHg MR max P.7 mmHg PA V2 mean: 71.8 cm/sec LV V1 mean P.5 mmHg MR mean horace: 472.6 cm/sec LV V1 mean: 90.3 cm/sec MR mean P.1 mmHg LV V1 VTI: 24.0 cm MR VTI: 212.2 cm ECHO/Echo Complete Interpretation Summary Severely dilated left ventricle. The estimated ejection fraction is 25 %. Severe global left ventricular systolic dysfunction. The global longitudinal strain is severely abnormal. The global longitudinal st rain = -9.6% (abnormal). Ordering Physician: Bala Han Referring Physician: Bala Han Performed By: Vandana Rajan RCS
== END | disposition home or self-care (01) ==
LOC: MRI 08:34
PROVIDERS: PCP Family Medicine; Referring Provider Family Medicine; Visit Provider Family Medicine
DX: R06.02 Shortness of breath (principal)
CPT/HCPCS: 93306

== ENCOUNTER → 2022-08-30 | Outpatient (CLI) | payer MEDICARE, OTHER, SELFPAY ==
[2022-08-30 07:29] LABS: Bacteria 0 SEEN /hpf (None Seen); Mucous, Urine 0 SEEN /hpf (<or=2+); Red Blood Cells-Urine 0 SEEN /hpf (0-5); Squamous Epithelial Cells - UA 0 SEEN /hpf (0-5); White Blood Cells 0 SEEN /hpf (0-5)
[2022-08-30 10:25] LABS: Absolute Lymphocyte Count 1.14 X10^3/uL (0.83-4.51); Absolute Neutrophil Count 4.3 X10^3/uL (2.0-7.7); Basophil# 0.05 X10^3/uL; Basophil% 0.8 % (0-1); Eosinophil# 0.36 X10^3/uL; Eosinophils% 5.5 % (0-5); Hematocrit 40.4 % (40-54); Hemoglobin 13.3 g/dL (13.0-16.5); Lymphocyte # 1.14 X10^3/ul (0.83-4.51); Lymphocyte % 17.3 % (19-41); Mean Corp Hgb Conc 32.9 g/dL (32-36); Mean Corpuscular Hgb 30.2 pg (27.0-32.0); Mean Corpuscular Volume 91.8 fL (80-94); Mean Platelet Vol. 8.6 fl (6.2-12.0); Monocyte# 0.69 X10^3/uL; Monocyte% 10.5 % (0-10); NRBC Flagged by Analyzer 0 % (0-5); Neutrophil # 4.32 X10^3/uL (2.7-7.7); Neutrophil % 65.6 % (47-70); Platelet Count 197 K/mm3 (150-450); RBC Distribution Width CV 13.1 % (11.6-14.6); RBC Distribution Width SD 43.8 fl (35.1-43.9); White Blood Count 6.6 K/mm3 (4.4-11.0)
[2022-08-30 10:27] LABS: Color, Urine Straw (Yellow); Glucose, Dipstick 1000 mg/dl (Normal); Ketone-Dipstick Negative (Negative); Leukocyte Esterase-Dipstick Negative /ul (Negative); Nitrite-Dipstick Negative (Negative); Occult Blood-Urine 10 /ul (Negative); Protein-Dipstick 100 mg/dl (Negative); Specific Gravity, Urine 1.005 (1.002-1.030); Urine Bilirubin Dipstick Negative (Negative); Urine Clarity Clear (Clear); Urine Urobilinogen Normal (Normal); Urine pH 6.5 (5.0 - 8.0)
[2022-08-30 10:54] LABS: PTHIN 43.6 pg/mL (18.4-80.1)
[2022-08-30 10:56] LABS: Vitamin D,25 Hydroxy 45.8 ng/mL
[2022-08-30 11:01] LABS: Hemoglobin A1c 8.3 % (3.8-5.6)
[2022-08-30 11:05] LABS: ALB/GLOB Ratio 0.9 RATIO (0.9-2.4); AST(SGOT) 22 U/L (15-37); Alanine Aminotransfer ALT/SGPT 25 U/L (16-61); Albumin, Serum 3.1 g/dL (3.2-5.0); Alkaline Phosphatase 112 U/L (45-117); Anion Gap 4 (5-15); BUN 41 mg/dL (7-18); BUN/Creat Ratio 17.5 RATIO (10-20); Calcium,Total 9.3 mg/dL (8.5-10.1); Chloride 103 mmol/L (98-107); Cholesterol 123 mg/dL (200); Creatinine, Serum 2.34 mg/dL (0.70-1.30); EST Glomerular Filtration Rate 30 mL/min (>60); Est Glom Filt Rate - Afr Amer 36 mL/min (>60); Globulin 3.6 g/dL (2.2-4.2); Glucose 134 mg/dL (74-106); High Density Lipoprotein 46 mg/dL; Potassium 4.8 mmol/L (3.5-5.1); Protein, Total 6.7 g/dL (6.4-8.2); Sodium Level 135 mmol/L (136-145); T4 Free Direct 1.19 ng/dL (0.76-1.46); Thyroid Stim Hormone (TSH) 0.63 uIU/mL (0.358-3.74); Triglycerides 141 mg/dL; Very Low Density Lipoprotein 28 mg/dL (5-40)
[2022-08-30 11:34] LABS: Microalbumin:Creatinine Ratio 2744.8 mg/g CRE (<30 mg/g CRE); Protein, Urine (Random) 63.6 mg/dL (<11.9); Protein:Creat Ratio 3313 mg/g CRE (0-200)
== END | disposition home or self-care (01) ==
LOC: MTLAB 07:24
PROVIDERS: PCP Family Medicine; Referring Provider Family Medicine; Visit Provider Family Medicine
DX: E11.22 Type 2 diabetes mellitus with diabetic chronic kidney disease (principal); E21.3 Hyperparathyroidism, unspecified; E03.9 Hypothyroidism, unspecified
CPT/HCPCS: 36415; 80053; 80061; 81001; 82043; 82306; 82570; 83036; 83970; 84100; 84156; 84439; 84443; 85025

== ENCOUNTER → 2022-10-28 | Outpatient (CLI) | payer MEDICARE, OTHER, SELFPAY ==
--- NOTE | 2022-10-28 12:38 | RAD_ITS ---
STUDY: X-RAY CHEST REASON FOR EXAM: Male, 66 years old. CHF, for heart cath -- for heart cath TECHNIQUE: Frontal and lateral views of the chest. COMPARISON: 05/02/2019. FINDINGS: There is hyperinflation of the lungs consistent with chronic obstructive lung disease (COPD). No infiltrates or effusions. There is no demonstrated pleural abnormality. Normal size heart. Normal mediastinum and eren. Normal visualized pulmonary arteries. Normal visualized aortic arch and descending thoracic aorta. Normal visualized thoracic spine. Normal visualized ribs, clavicles, and shoulders. There is no demonstrated abnormality of the visualized soft tissue structures of the upper abdomen. RAD/Chest PA and Lateral IMPRESSION: There are findings consistent with COPD. There is no evidence of acute chest disease. Electronically Signed: Pietro Mills MD at 17:04 EDT ,
== END | disposition home or self-care (01) ==
LOC: RAD 12:29
PROVIDERS: PCP Family Medicine; Referring Provider Internal Medicine Cardiovascular Disease; Visit Provider Internal Medicine Cardiovascular Disease
DX: I13.0 Hypertensive heart and chronic kidney disease with heart failure and stage 1 through stage 4 chronic kidney disease, or unspecified chronic kidney disease (principal); I50.22 Chronic systolic (congestive) heart failure; E11.22 Type 2 diabetes mellitus with diabetic chronic kidney disease; N18.30 Chronic kidney disease, stage 3 unspecified; I25.5 Ischemic cardiomyopathy; I25.10 Atherosclerotic heart disease of native coronary artery without angina pectoris
CPT/HCPCS: 71046

== ENCOUNTER → 2022-11-03 | Outpatient (CLI) | payer MEDICARE, OTHER, SELFPAY ==
[2022-11-03 10:14] LABS: Hematocrit 40.4 % (40-54); Hemoglobin 13.3 g/dL (13.0-16.5); Mean Corp Hgb Conc 32.9 g/dL (32-36); Mean Corpuscular Hgb 30.2 pg (27.0-32.0); Mean Corpuscular Volume 91.6 fL (80-94); Mean Platelet Vol. 9.2 fl (6.2-12.0); Platelet Count 198 K/mm3 (150-450); RBC Distribution Width CV 13.3 % (11.6-14.6); Red Blood Count 4.41 M/mm3 (4.6-6.2); White Blood Count 7.8 K/mm3 (4.4-11.0)
[2022-11-03 10:28] LABS: Partial Thromboplast Time 25.6 Seconds (24.1-36.2); Prothrombin Time (Protime)PT. 12.9 SECONDS (11.7-14.9)
[2022-11-03 10:40] LABS: Anion Gap 4 (5-15); BUN 47 mg/dL (7-18); BUN/Creat Ratio 19.1 RATIO (10-20); Calcium,Total 8.9 mg/dL (8.5-10.1); Chloride 104 mmol/L (98-107); Creatinine, Serum 2.46 mg/dL (0.70-1.30); EST Glomerular Filtration Rate 28 mL/min (>60); Est Glom Filt Rate - Afr Amer 34 mL/min (>60); Glucose 197 mg/dL (74-106); Potassium 4.6 mmol/L (3.5-5.1); Sodium Level 135 mmol/L (136-145)
== END | disposition home or self-care (01) ==
LOC: MTLAB 07:59
PROVIDERS: PCP Family Medicine; Visit Provider Internal Medicine Cardiovascular Disease
DX: I25.5 Ischemic cardiomyopathy (principal); I50.22 Chronic systolic (congestive) heart failure; I25.10 Atherosclerotic heart disease of native coronary artery without angina pectoris
CPT/HCPCS: 36415; 80048; 85027; 85610; 85730

== ENCOUNTER 2022-11-07 10:15 | Observation (INO) | payer MEDICARE, OTHER, SELFPAY ==
[2022-11-04 09:25] VITALS: BMI 27.4
--- NOTE | 2022-11-07 10:18 | DCINST_ITS ---
Discharge Instructions Diet Discharge Diet: 1999 Calorie Control Diet Activity Discharge Activity: Return to Normal Activity Weight Bearing Status: Weight bearing as tolerated Dressing / Incision Call your doctor if your incision/area has: Continuous Slow Oozing, Sudden Increased Bleeding, Increased Pain/ Swelling, Increased Redness, Foul Smelling Discharge and Swelling at the incision site Call your doctor if you observe: Fever of 101 or Higher, Coldness, Increased Pain and Change in Color Follow Up Care Please Follow Up With: Pedro Vee MD When: 1-2 weeks Test Results: Test results from this visit will be discussed in further detail at your follow- up appointment, if applicable. Discharge Plan Admission Admit Date/Time: 11/07/22 10:15 Attending Provider: Pedro Vee Primary Care Provider: Bala Han Discharge Orders/Prescriptions Prescriptions: No Action metoprolol succinate 50 mg tablet extended release 24 hr 50 mg PO DAILY insulin glargine [Lantus Solostar U-100 Insulin] 100 unit/mL (3 mL) insulin pen 10 unit subcut BID allopurinol 300 mg tablet 300 mg PO DAILY levothyroxine 175 mcg tablet 175 mcg PO DAILY bupropion HCl [Wellbutrin SR] 150 mg tablet sustained-release 12 hr 150 mg PO BID rosuvastatin 20 mg tablet 20 mg PO DAILY aspirin 81 mg tablet,delayed release (DR/EC) 81 mg PO DAILY Kerendia 10 mg tablet 20 mg PO DAILY Farxiga 10 mg tablet 10 mg PO DAILY Patient Comments: Take 1 tablet by mouth daily hydralazine 25 mg tablet 25 mg PO TID Qty: 90 1RF isosorbide dinitrate 20 mg tablet 20 mg PO TID Qty: 90 1RF Rx Instructions: allow nitrate-free interval of 12-14 hrs per 24-hr period amlodipine 5 mg tablet 5 mg PO DAILY Qty: 90 3RF Referrals / Follow Up: Bala Han MD [Primary Care Provider] - Disposition Disposition (needs filled in before D/C Order can be placed): Home, Self Care
--- NOTE | 2022-11-07 11:14 | CL.D_ITS ---
Patient Name: GAMALIEL GRIFFIN Study Date: 11/07/2022 Performing: Pedro Vee MD Ht: 69 inches 175.26 cm : 1955 Wt: 186 lbs 84.37 kg Age: 66 Gender: male BSA: 2 PROCEDURE(S) PERFORMED DC02-([id number])[facility] CLINICAL PROFILE AND INDICATIONS Indications: Congestive Heart Failure, New onset Heart Failure: NYHA Class: 3 CONCLUSIONS Severe multivessel CAD RECOMMENDATIONS Surgery consult for coronary revascularization DESCRIPTION OF PROCEDURE The patient arrived to the procedure lab. The risks and benefits of the procedure as well as a full description of our services here and current unavailability of surgical backup were fully explained to the patient and/or their significant other prior to the catheterization. The Timeout was completed, verifying the correct patient and procedure. The patient's procedural site was prepped and draped in the usual fashion. Local anesthetic was given subcutaneously to right radial region with Lidocaine 2%. Using a modified Seldinger technique, arterial access was obtained via the right radial artery, a 6Fr sheath was inserted. Left Coronary Artery selective angiography was performed in multiple views using a 5 Fr. 4.0 [place] catheter. LV to AO pullback pressures were then recorded.The arterial sheath was pulled and a TR Band was applied for hemostasis CORONARY ANGIOGRAPHY DOMINANCE: Right Dominant LEFT HEART ASSESSMENT Normal Left Ventricular End Diastolic Pressure LEFT MAIN: Angiographically normal LEFT ANTERIOR DESCENDING ARTERY: LAD: Tubular 90% Proximal lesion in LAD Tubular 80% Mid lesion in LAD CIRCUMFLEX ARTERY: CIRCUMFLEX: Tubular 90% Mid lesion in Circumflex OM 1: In-Stent Restenosis 70% Proximal lesion in MARG1 OM 2: In-Stent Restenosis 70% Proximal lesion in MARG1 RIGHT CORONARY ARTERY: RCA: Tubular 65% Distal lesion in RCA RT PDA: In-Stent Restenosis 70% Proximal lesion in Right PDA, STENT to 70% COMPLICATIONS No Complications PROCEDURE MEDICATIONS Versed 1 mg IV Fentanyl 50 mcg IV Oxygen: 2 L/min via nasal cannula Heparin given IA 11/07/2022 09:50:07 Verapamil 2.5mg, Ntg 200mcgs, 2000 units of Heparin given IA 11/07/2022 09:50:07 IV Fluids: .9 NaCl IV started @ 75 ml/hr 11/07/2022 09:54:35 SUMMARY OF HEMODYNAMIC DATA Time AIR REST ECG 07:51:08 LV 131/14, 27 09:56:44 LV 132/14, 24 09:56:52 LVp 129/13, 24 09:56:56 AOp 131/73 (97) 09:57:03 AO 142/80 (104) SA 10:00:10 AIR REST 11:12:50 Signed By Pedro Vee MD On 11/07/2022 11:13:48 Pedro Vee MD
[2022-11-07 16:23] VITALS: BP 142/87; PULSE 64; RESP 18; TEMP 37.1; O2SAT 99
[2022-11-07 16:34] VITALS: PULSE 64
[2022-11-07] MEDS: hydrALAZINE 25 MG Tablet PO ×2 (16:34→20:53)
[2022-11-07] MEDS: 0.9% Normal Saline (1000mL) 1,000 ML 75 ML IV (16:34)
[2022-11-07] MEDS: Isosorbide DN 20 MG Tablet PO (17:58)
[2022-11-07 20:50] VITALS: BP 132/73; PULSE 63; RESP 17; TEMP 36.9; O2SAT 96
[2022-11-07] MEDS: Atorvastatin Calcium 40 MG Tablet PO (20:52)
[2022-11-07 20:53] VITALS: BP 132/73; PULSE 63
[2022-11-07] MEDS: buPROPion (SR) 150 MG Tablet.SA PO (20:53)
[2022-11-07] MEDS: Insulin Glargine-YFGN 100 UNIT/ML Pen 10 UNIT SC (20:53)
[2022-11-07 21:13] LABS: Bedside Glucose 260 mg/dL (74-106)
[2022-11-08 04:20] VITALS: BP 133/82; PULSE 60; RESP 17; TEMP 36.6; O2SAT 97
[2022-11-08] MEDS: 0.9% Normal Saline (1000mL) 1,000 ML 75 ML IV (04:25)
[2022-11-08 04:27] VITALS: BP 133/82; PULSE 60
[2022-11-08] MEDS: hydrALAZINE 25 MG Tablet PO (04:27)
[2022-11-08] MEDS: Levothyroxine 175 MCG Tablet PO (04:27)
[2022-11-08] MEDS: Isosorbide DN 20 MG Tablet PO (04:27)
[2022-11-08 08:01] LABS: Anion Gap 6 (5-15); BUN 35 mg/dL (7-18); BUN/Creat Ratio 16.6 RATIO (10-20); Calcium,Total 8.1 mg/dL (8.5-10.1); Chloride 110 mmol/L (98-107); Creatinine, Serum 2.11 mg/dL (0.70-1.30); EST Glomerular Filtration Rate 33 mL/min (>60); Est Glom Filt Rate - Afr Amer 40 mL/min (>60); Estimated Creatinine Clearance 33.97 ml/min; Glucose 209 mg/dL (74-106); Potassium 4.4 mmol/L (3.5-5.1); Sodium Level 138 mmol/L (136-145)
[2022-11-08 08:46] VITALS: BP 141/73; PULSE 66; RESP 18; TEMP 36.8; O2SAT 98
[2022-11-08 08:48] VITALS: PULSE 66
[2022-11-08] MEDS: Metoprolol(XL)Succ 50 MG Tablet PO (08:48)
[2022-11-08] MEDS: Allopurinol 300 MG Tablet PO (08:49)
[2022-11-08] MEDS: amLODIPine 5 MG Tablet PO (08:49)
[2022-11-08] MEDS: buPROPion (SR) 150 MG Tablet.SA PO (08:49)
[2022-11-08] MEDS: Aspirin E.C. 81 MG Tablet PO (08:49)
[2022-11-08] MEDS: Empagliflozin 25 MG Tablet PO (08:50)
[2022-11-08] MEDS: Insulin Glargine-YFGN 100 UNIT/ML Pen 10 UNIT SC (08:50)
--- NOTE | 2022-11-08 10:19 | CASEMGMT ---
HANG CM into pt room as pt had questions about observation status. Answered questions that pt and had. Pt denies any homegoing needs.
== END 2022-11-08 11:07 | disposition home or self-care (01) ==
LOC: CLSP 10:20 → MS3 16:05
PROVIDERS: Admitting Provider Internal Medicine Cardiovascular Disease; PCP Family Medicine; Referring Provider Family Medicine; Visit Provider Internal Medicine Cardiovascular Disease
DX: I25.10 Atherosclerotic heart disease of native coronary artery without angina pectoris (principal); I50.22 Chronic systolic (congestive) heart failure; I13.0 Hypertensive heart and chronic kidney disease with heart failure and stage 1 through stage 4 chronic kidney disease, or unspecified chronic kidney disease; E11.22 Type 2 diabetes mellitus with diabetic chronic kidney disease; Z79.4 Long term (current) use of insulin; N18.30 Chronic kidney disease, stage 3 unspecified; I25.2 Old myocardial infarction; Z79.899 Other long term (current) drug therapy; Z79.82 Long term (current) use of aspirin; Z79.890 Hormone replacement therapy; G47.33 Obstructive sleep apnea (adult) (pediatric); M10.9 Gout, unspecified; I25.5 Ischemic cardiomyopathy
CPT/HCPCS: 36415; 80048; 82962; 93454; 96360; 96361; 99152; 99153; 99221; J7030; J7040; Q9967; C1769; C1894; G0378

== ENCOUNTER → 2023-02-07 | Outpatient (CLI) | payer MEDICARE, OTHER, SELFPAY ==
[2023-02-07 17:42] LABS: Anion Gap 3 (5-15); BUN 45 mg/dL (7-18); BUN/Creat Ratio 16.7 RATIO (10-20); Calcium,Total 8.7 mg/dL (8.5-10.1); Chloride 107 mmol/L (98-107); Creatinine, Serum 2.69 mg/dL (0.70-1.30); EST Glomerular Filtration Rate 25 mL/min (>60); Est Glom Filt Rate - Afr Amer 31 mL/min (>60); Glucose 74 mg/dL (74-106); Potassium 4.6 mmol/L (3.5-5.1); Sodium Level 136 mmol/L (136-145)
== END | disposition home or self-care (01) ==
LOC: MTLAB 15:37
PROVIDERS: PCP Family Medicine; Referring Provider Nurse Practitioner Family; Visit Provider Nurse Practitioner Family
DX: E11.59 Type 2 diabetes mellitus with other circulatory complications (principal)
CPT/HCPCS: 36415; 80048

== ENCOUNTER 2023-03-09 15:14 | Outpatient (CLI) | payer MEDICARE, OTHER, SELFPAY ==
[2023-03-09 15:21] LABS: Bacteria 0 SEEN /hpf (None Seen); Mucous, Urine 0 SEEN /hpf (<or=2+); Red Blood Cells-Urine 0 SEEN /hpf (0-5); Squamous Epithelial Cells - UA 0 SEEN /hpf (0-5); White Blood Cells 0 SEEN /hpf (0-5)
[2023-03-09 17:47] LABS: Absolute Lymphocyte Count 1.02 X10^3/uL (0.83-4.51); Absolute Neutrophil Count 6.4 X10^3/uL (2.0-7.7); Basophil# 0.05 X10^3/uL; Basophil% 0.6 % (0-1); Eosinophil# 0.41 X10^3/uL; Eosinophils% 4.8 % (0-5); Hematocrit 35.2 % (40-54); Hemoglobin 11.3 g/dL (13.0-16.5); Lymphocyte # 1.02 X10^3/ul (0.83-4.51); Mean Corp Hgb Conc 32.1 g/dL (32-36); Mean Corpuscular Hgb 29.4 pg (27.0-32.0); Mean Corpuscular Volume 91.7 fL (80-94); Mean Platelet Vol. 8.6 fl (6.2-12.0); Monocyte# 0.59 X10^3/uL; Monocyte% 6.9 % (0-10); NRBC Flagged by Analyzer 0 % (0-5); Neutrophil # 6.42 X10^3/uL (2.7-7.7); Neutrophil % 75.2 % (47-70); Platelet Count 272 K/mm3 (150-450); RBC Distribution Width CV 14.7 % (11.6-14.6); RBC Distribution Width SD 49.4 fl (35.1-43.9); Red Blood Count 3.84 M/mm3 (4.6-6.2); White Blood Count 8.5 K/mm3 (4.4-11.0)
[2023-03-09 18:04] LABS: Color, Urine Yellow (Yellow); Glucose, Dipstick 1000 mg/dl (Normal); Ketone-Dipstick Negative (Negative); Leukocyte Esterase-Dipstick Negative /ul (Negative); Nitrite-Dipstick Negative (Negative); Occult Blood-Urine Negative /ul (Negative); Protein-Dipstick 100 mg/dl (Negative); Specific Gravity, Urine 1.015 (1.002-1.030); Urine Bilirubin Dipstick Negative (Negative); Urine Clarity Clear (Clear); Urine Urobilinogen Normal (Normal)
[2023-03-09 18:15] LABS: Hemoglobin A1c 6.3 % (3.8-5.6)
[2023-03-09 18:16] LABS: Vitamin D,25 Hydroxy 19.9 ng/mL
[2023-03-09 18:29] LABS: Protein, Urine (Random) 190.1 mg/dL (<11.9); Protein:Creat Ratio 2501 mg/g CRE (0-200)
[2023-03-09 18:31] LABS: ALB/GLOB Ratio 0.8 RATIO (0.9-2.4); AST(SGOT) 18 U/L (15-37); Alanine Aminotransfer ALT/SGPT 22 U/L (16-61); Albumin, Serum 2.9 g/dL (3.2-5.0); Alkaline Phosphatase 123 U/L (45-117); Anion Gap 5 (5-15); BUN 59 mg/dL (7-18); BUN/Creat Ratio 22.5 RATIO (10-20); Calcium,Total 8.7 mg/dL (8.5-10.1); Chloride 106 mmol/L (98-107); Cholesterol 116 mg/dL (200); Creatinine, Serum 2.62 mg/dL (0.70-1.30); EST Glomerular Filtration Rate 26 mL/min (>60); Est Glom Filt Rate - Afr Amer 31 mL/min (>60); Globulin 3.7 g/dL (2.2-4.2); Glucose 85 mg/dL (74-106); High Density Lipoprotein 39 mg/dL; Magnesium 2.5 mg/dL (1.6-2.6); Phosphorus 3.8 mg/dL (2.5-4.9); Potassium 5.2 mmol/L (3.5-5.1); Protein, Total 6.6 g/dL (6.4-8.2); Sodium Level 137 mmol/L (136-145); T4 Free Direct 1.28 ng/dL (0.76-1.46); Thyroid Stim Hormone (TSH) 1.32 uIU/mL (0.358-3.74); Triglycerides 157 mg/dL; Very Low Density Lipoprotein 31 mg/dL (5-40)
[2023-03-10 09:06] LABS: PTHIN 99.9 pg/mL (18.4-80.1)
== END 2023-03-09 23:59 | disposition home or self-care (01) ==
LOC: MTLAB 15:15
PROVIDERS: PCP Family Medicine; Referring Provider Family Medicine; Visit Provider Family Medicine
DX: E11.22 Type 2 diabetes mellitus with diabetic chronic kidney disease (principal); E21.3 Hyperparathyroidism, unspecified; E03.9 Hypothyroidism, unspecified
CPT/HCPCS: 36415; 80053; 80061; 81001; 82306; 82570; 83036; 83735; 83970; 84100; 84156; 84439; 84443; 85025

== ENCOUNTER → 2023-03-17 | Outpatient (CLI) | payer MEDICARE, OTHER, SELFPAY ==
[2023-03-17 13:18] LABS: Anion Gap 2 (5-15); BUN 53 mg/dL (7-18); BUN/Creat Ratio 20.2 RATIO (10-20); Calcium,Total 8.8 mg/dL (8.5-10.1); Chloride 105 mmol/L (98-107); Creatinine, Serum 2.62 mg/dL (0.70-1.30); EST Glomerular Filtration Rate 26 mL/min (>60); Est Glom Filt Rate - Afr Amer 31 mL/min (>60); Glucose 142 mg/dL (74-106); Potassium 4.3 mmol/L (3.5-5.1); Sodium Level 135 mmol/L (136-145)
== END | disposition home or self-care (01) ==
LOC: MTLAB 10:22
PROVIDERS: PCP Family Medicine; Referring Provider Family Medicine; Visit Provider Family Medicine
DX: E87.5 Hyperkalemia (principal)
CPT/HCPCS: 36415; 80048

== ENCOUNTER → 2023-03-24 | Outpatient (CLI) | payer MEDICARE, OTHER, SELFPAY ==
[2023-03-24 18:18] LABS: Anion Gap 7 (5-15); BUN 65 mg/dL (7-18); BUN/Creat Ratio 20.6 RATIO (10-20); Calcium,Total 8.8 mg/dL (8.5-10.1); Chloride 104 mmol/L (98-107); Creatinine, Serum 3.16 mg/dL (0.70-1.30); EST Glomerular Filtration Rate 21 mL/min (>60); Est Glom Filt Rate - Afr Amer 25 mL/min (>60); Glucose 64 mg/dL (74-106); Potassium 4.6 mmol/L (3.5-5.1); Sodium Level 138 mmol/L (136-145)
== END | disposition home or self-care (01) ==
LOC: MTLAB 15:26
PROVIDERS: PCP Family Medicine; Referring Provider Family Medicine; Visit Provider Family Medicine
DX: E11.59 Type 2 diabetes mellitus with other circulatory complications (principal)
CPT/HCPCS: 36415; 80048

== ENCOUNTER → 2023-03-31 | Outpatient (CLI) | payer MEDICARE, OTHER, SELFPAY ==
[2023-03-31 16:46] LABS: Albumin, Serum 2.9 g/dL (3.2-5.0); BUN 47 mg/dL (7-18); BUN/Creat Ratio 17.7 RATIO (10-20); Calcium,Total 8.9 mg/dL (8.5-10.1); Chloride 105 mmol/L (98-107); Creatinine, Serum 2.66 mg/dL (0.70-1.30); EST Glomerular Filtration Rate 26 mL/min (>60); Est Glom Filt Rate - Afr Amer 31 mL/min (>60); Glucose 135 mg/dL (74-106); Sodium Level 136 mmol/L (136-145)
== END | disposition home or self-care (01) ==
PROVIDERS: PCP Family Medicine; Referring Provider Internal Medicine Nephrology; Visit Provider Internal Medicine Nephrology
DX: N18.32 Chronic kidney disease, stage 3b (principal); N17.9 Acute kidney failure, unspecified
CPT/HCPCS: 36415; 80069

== ENCOUNTER → 2023-04-21 | Outpatient (CLI) | payer MEDICARE, OTHER, SELFPAY ==
[2023-04-21 10:23] LABS: BUN 42 mg/dL (7-18); BUN/Creat Ratio 17.1 RATIO (10-20); Calcium,Total 8.9 mg/dL (8.5-10.1); Chloride 105 mmol/L (98-107); Creatinine, Serum 2.46 mg/dL (0.70-1.30); EST Glomerular Filtration Rate 28 mL/min (>60); Est Glom Filt Rate - Afr Amer 34 mL/min (>60); Glucose 144 mg/dL (74-106); Phosphorus 4.5 mg/dL (2.5-4.9); Potassium 4.5 mmol/L (3.5-5.1); Sodium Level 139 mmol/L (136-145)
[2023-04-21 10:24] LABS: Protein:Creat Ratio 3565 mg/g CRE (0-200)
== END | disposition home or self-care (01) ==
LOC: MTLAB 07:43
PROVIDERS: PCP Family Medicine; Referring Provider Internal Medicine Nephrology; Visit Provider Internal Medicine Nephrology
DX: N18.32 Chronic kidney disease, stage 3b (principal); E11.22 Type 2 diabetes mellitus with diabetic chronic kidney disease; E11.21 Type 2 diabetes mellitus with diabetic nephropathy
CPT/HCPCS: 36415; 80069; 82570; 84156

== ENCOUNTER → 2023-06-01 | Outpatient (CLI) | payer MEDICARE, OTHER, SELFPAY ==
[2023-06-01 10:31] LABS: BUN 51 mg/dL (7-18); BUN/Creat Ratio 20.2 RATIO (10-20); Calcium,Total 8.8 mg/dL (8.5-10.1); Chloride 107 mmol/L (98-107); Creatinine, Serum 2.52 mg/dL (0.70-1.30); EST Glomerular Filtration Rate 27 mL/min (>60); Est Glom Filt Rate - Afr Amer 33 mL/min (>60); Glucose 137 mg/dL (74-106); Phosphorus 4.5 mg/dL (2.5-4.9); Potassium 4.7 mmol/L (3.5-5.1); Sodium Level 138 mmol/L (136-145)
== END | disposition home or self-care (01) ==
LOC: MTLAB 07:31
PROVIDERS: PCP Family Medicine; Referring Provider Internal Medicine Nephrology; Visit Provider Internal Medicine Nephrology
DX: N18.32 Chronic kidney disease, stage 3b (principal)
CPT/HCPCS: 36415; 80069

== ENCOUNTER → 2023-06-29 | Outpatient (CLI) | payer MEDICARE, OTHER, SELFPAY ==
[2023-06-29 10:06] LABS: Absolute Lymphocyte Count 1.66 X10^3/uL (0.83-4.51); Absolute Neutrophil Count 6.7 X10^3/uL (2.0-7.7); Basophil# 0.06 X10^3/uL; Basophil% 0.6 % (0-1); Eosinophils% 4.1 % (0-5); Hematocrit 42.4 % (40-54); Hemoglobin 13.6 g/dL (13.0-16.5); Lymphocyte # 1.66 X10^3/ul (0.83-4.51); Mean Corp Hgb Conc 32.1 g/dL (32-36); Mean Corpuscular Hgb 29.6 pg (27.0-32.0); Mean Corpuscular Volume 92.2 fL (80-94); Mean Platelet Vol. 8.8 fl (6.2-12.0); Monocyte# 0.86 X10^3/uL; Monocyte% 8.8 % (0-10); NRBC Flagged by Analyzer 0 % (0-5); Neutrophil # 6.72 X10^3/uL (2.7-7.7); Neutrophil % 69.1 % (47-70); Platelet Count 245 K/mm3 (150-450); RBC Distribution Width CV 15.3 % (11.6-14.6); RBC Distribution Width SD 51.4 fl (35.1-43.9); White Blood Count 9.7 K/mm3 (4.4-11.0)
[2023-06-29 10:47] LABS: ALB/GLOB Ratio 0.9 RATIO (0.9-2.4); AST(SGOT) 21 U/L (15-37); Alanine Aminotransfer ALT/SGPT 21 U/L (16-61); Albumin, Serum 3.1 g/dL (3.2-5.0); Alkaline Phosphatase 102 U/L (45-117); Anion Gap 5 (5-15); BUN 46 mg/dL (7-18); BUN/Creat Ratio 18.7 RATIO (10-20); Calcium,Total 9.1 mg/dL (8.5-10.1); Chloride 111 mmol/L (98-107); Cholesterol 144 mg/dL (200); Creatinine, Serum 2.46 mg/dL (0.70-1.30); EST Glomerular Filtration Rate 28 mL/min (>60); Est Glom Filt Rate - Afr Amer 34 mL/min (>60); Free T3 1.9 pg/mL (2.18-3.98); Globulin 3.6 g/dL (2.2-4.2); Glucose 49 mg/dL (74-106); High Density Lipoprotein 39 mg/dL; Magnesium 2.3 mg/dL (1.6-2.6); Potassium 4.3 mmol/L (3.5-5.1); Protein, Total 6.7 g/dL (6.4-8.2); Sodium Level 140 mmol/L (136-145); T4 Free Direct 1.08 ng/dL (0.76-1.46); Thyroid Stim Hormone (TSH) 0.84 uIU/mL (0.358-3.74); Triglycerides 149 mg/dL; Very Low Density Lipoprotein 30 mg/dL (5-40)
[2023-06-29 12:11] LABS: Protein, Urine (Random) 184.6 mg/dL (<11.9); Protein:Creat Ratio 3256 mg/g CRE (0-200)
[2023-06-29 13:11] LABS: Hemoglobin A1c 6.2 % (3.8-5.6)
[2023-06-30 08:25] LABS: PSA,Total - Annual Screen 1.14 ng/mL (0.00-4.00)
== END | disposition home or self-care (01) ==
LOC: MTLAB 08:45
PROVIDERS: PCP Family Medicine; Referring Provider Family Medicine; Visit Provider Family Medicine
DX: E21.3 Hyperparathyroidism, unspecified (principal); E11.8 Type 2 diabetes mellitus with unspecified complications; R80.9 Proteinuria, unspecified; E87.5 Hyperkalemia; M79.10 Myalgia, unspecified site; I25.10 Atherosclerotic heart disease of native coronary artery without angina pectoris; Z12.5 Encounter for screening for malignant neoplasm of prostate
CPT/HCPCS: 36415; 80053; 80061; 82570; 83036; 83735; 83970; 84153; 84156; 84439; 84443; 84481; 85025; G0103

== ENCOUNTER → 2023-08-25 | Outpatient (CLI) | payer MEDICARE, OTHER, SELFPAY ==
[2023-08-25 10:29] LABS: Protein, Urine (Random) 168.8 mg/dL (<11.9); Protein:Creat Ratio 3246 mg/g CRE (0-200)
[2023-08-25 10:52] LABS: Albumin, Serum 3.1 g/dL (3.2-5.0); BUN 47 mg/dL (7-18); BUN/Creat Ratio 18.8 RATIO (10-20); Calcium,Total 9.1 mg/dL (8.5-10.1); Chloride 105 mmol/L (98-107); EST Glomerular Filtration Rate 27 mL/min (>60); Est Glom Filt Rate - Afr Amer 33 mL/min (>60); Glucose 94 mg/dL (74-106); Phosphorus 4.1 mg/dL (2.5-4.9); Potassium 4.4 mmol/L (3.5-5.1); Sodium Level 137 mmol/L (136-145)
[2023-08-25 10:57] LABS: Vitamin D,25 Hydroxy 35.3 ng/mL
[2023-08-25 11:16] LABS: PTHIN 127.5 pg/mL (18.4-80.1)
== END | disposition home or self-care (01) ==
LOC: MTLAB 07:36
PROVIDERS: PCP Family Medicine; Referring Provider Internal Medicine Nephrology; Visit Provider Internal Medicine Nephrology
DX: E11.22 Type 2 diabetes mellitus with diabetic chronic kidney disease (principal); E11.21 Type 2 diabetes mellitus with diabetic nephropathy; N18.32 Chronic kidney disease, stage 3b; N25.81 Secondary hyperparathyroidism of renal origin
CPT/HCPCS: 36415; 80069; 82306; 82570; 83970; 84156

== ENCOUNTER → 2023-10-03 | Outpatient (CLI) | payer MEDICARE, OTHER, SELFPAY ==
[2023-10-03 11:05] LABS: Albumin, Serum 2.7 g/dL (3.2-5.0); BUN 47 mg/dL (7-18); BUN/Creat Ratio 18.5 RATIO (10-20); Calcium,Total 9.4 mg/dL (8.5-10.1); Chloride 107 mmol/L (98-107); Creatinine, Serum 2.54 mg/dL (0.70-1.30); EST Glomerular Filtration Rate 27 mL/min (>60); Est Glom Filt Rate - Afr Amer 33 mL/min (>60); Glucose 89 mg/dL (74-106); Phosphorus 3.3 mg/dL (2.5-4.9); Potassium 4.9 mmol/L (3.5-5.1); Sodium Level 139 mmol/L (136-145)
[2023-10-03 13:38] LABS: 24HR. UA Prot. Total Volume 3000 mL; Creat.Clear Total Volume 3000 mL; Creatinine Clearance 11 ml/min (100-200); Creatinine Serum Creat 2.5 mg/dL (0.8-1.3); Creatinine Urine < 13.0 mg/dL (NO RANGE EST.); EST Glomerular Filtration Rate 27 mL/min (>60); Est Glom Filt Rate - Afr Amer 33 mL/min (>60); Urine Protein (24 Hour) 120.4 mg/dL (<11.9)
== END | disposition home or self-care (01) ==
LOC: MTLAB 07:45
PROVIDERS: PCP Family Medicine; Referring Provider Internal Medicine Nephrology; Visit Provider Internal Medicine Nephrology
DX: N18.4 Chronic kidney disease, stage 4 (severe) (principal)
CPT/HCPCS: 36415; 80069; 81050; 82575; 84156

== ENCOUNTER → 2023-12-05 | Outpatient (CLI) | payer MEDICARE, OTHER, SELFPAY ==
[2023-12-05 08:42] LABS: Bacteria 0 SEEN /hpf (None Seen); Mucous, Urine 0 SEEN /hpf (<or=2+); Squamous Epithelial Cells - UA 0 SEEN /hpf (0-5); White Blood Cells 0 SEEN /hpf (0-5)
[2023-12-05 09:59] LABS: Color, Urine Yellow (Yellow); Glucose, Dipstick 1000 mg/dl (Normal); Ketone-Dipstick Negative (Negative); Leukocyte Esterase-Dipstick Negative /ul (Negative); Nitrite-Dipstick Negative (Negative); Occult Blood-Urine 25 /ul (Negative); Protein-Dipstick 500 mg/dl (Negative); Specific Gravity, Urine 1.015 (1.002-1.030); Urine Bilirubin Dipstick Negative (Negative); Urine Clarity Sl. Cloudy (Clear); Urine Urobilinogen Normal (Normal)
[2023-12-05 10:07] LABS: Red Blood Cells-Urine 0-5 SEEN /hpf (0-5)
[2023-12-05 10:08] LABS: Absolute Lymphocyte Count 1.05 X10^3/uL (0.83-4.51); Absolute Neutrophil Count 4.9 X10^3/uL (2.0-7.7); Basophil# 0.05 X10^3/uL; Basophil% 0.7 % (0-1); Eosinophil# 0.43 X10^3/uL; Eosinophils% 6.1 % (0-5); Hematocrit 40.3 % (40-54); Hemoglobin 13.3 g/dL (13.0-16.5); Lymphocyte # 1.05 X10^3/ul (0.83-4.51); Mean Corpuscular Volume 93.9 fL (80-94); Mean Platelet Vol. 8.8 fl (6.2-12.0); Monocyte# 0.59 X10^3/uL; Monocyte% 8.4 % (0-10); NRBC Flagged by Analyzer 0 % (0-5); Neutrophil # 4.88 X10^3/uL (2.7-7.7); Neutrophil % 69.5 % (47-70); Platelet Count 206 K/mm3 (150-450); RBC Distribution Width CV 13.7 % (11.6-14.6); RBC Distribution Width SD 46.9 fl (35.1-43.9); Red Blood Count 4.29 M/mm3 (4.6-6.2)
[2023-12-05 10:22] LABS: Vitamin D,25 Hydroxy 22.6 ng/mL
[2023-12-05 10:40] LABS: ALB/GLOB Ratio 0.8 RATIO (0.9-2.4); AST(SGOT) 33 U/L (15-37); Alanine Aminotransfer ALT/SGPT 38 U/L (16-61); Albumin, Serum 2.9 g/dL (3.2-5.0); Alkaline Phosphatase 128 U/L (45-117); Anion Gap 7 (5-15); BUN 51 mg/dL (7-18); BUN/Creat Ratio 18.9 RATIO (10-20); Calcium,Total 8.8 mg/dL (8.5-10.1); Chloride 107 mmol/L (98-107); Cholesterol 116 mg/dL (200); EST Glomerular Filtration Rate 25 mL/min (>60); Est Glom Filt Rate - Afr Amer 30 mL/min (>60); Globulin 3.7 g/dL (2.2-4.2); Glucose 126 mg/dL (74-106); High Density Lipoprotein 44 mg/dL; Magnesium 2.5 mg/dL (1.6-2.6); Potassium 4.6 mmol/L (3.5-5.1); Protein, Total 6.6 g/dL (6.4-8.2); Sodium Level 138 mmol/L (136-145); Thyroid Stim Hormone (TSH) 0.285 uIU/mL (0.358-3.740); Triglycerides 150 mg/dL; Very Low Density Lipoprotein 30 mg/dL (5-40)
[2023-12-05 10:45] LABS: Protein, Urine (Random) 181.7 mg/dL (<11.9); Protein:Creat Ratio 3825 mg/g CRE (0-200)
[2023-12-05 11:06] LABS: Hemoglobin A1c 6.3 % (3.8-5.6)
== END | disposition home or self-care (01) ==
LOC: MTLAB 08:35
PROVIDERS: PCP Family Medicine; Referring Provider Family Medicine; Visit Provider Family Medicine
DX: E11.59 Type 2 diabetes mellitus with other circulatory complications (principal); I48.91 Unspecified atrial fibrillation; E11.22 Type 2 diabetes mellitus with diabetic chronic kidney disease; E21.3 Hyperparathyroidism, unspecified
CPT/HCPCS: 36415; 80053; 80061; 81001; 82306; 82570; 83036; 83735; 83970; 84156; 84443; 85025

== ENCOUNTER → 2024-04-02 | Outpatient (CLI) | payer MEDICARE, OTHER, SELFPAY ==
[2024-04-02 08:21] LABS: Bacteria 0 SEEN /hpf (None Seen); Mucous, Urine 0 SEEN /hpf (<or=2+)
[2024-04-02 10:32] LABS: Absolute Lymphocyte Count 0.93 X10^3/uL (0.83-4.51); Absolute Neutrophil Count 4.9 X10^3/uL (2.0-7.7); Basophil# 0.04 X10^3/uL; Basophil% 0.6 % (0-1); Eosinophil# 0.38 X10^3/uL; Eosinophils% 5.5 % (0-5); Hematocrit 41.6 % (40-54); Hemoglobin 13.2 g/dL (13.0-16.5); Lymphocyte # 0.93 X10^3/ul (0.83-4.51); Lymphocyte % 13.5 % (19-41); Mean Corp Hgb Conc 31.7 g/dL (32-36); Mean Corpuscular Hgb 29.7 pg (27.0-32.0); Mean Corpuscular Volume 93.7 fL (80-94); Mean Platelet Vol. 8.4 fl (6.2-12.0); Monocyte# 0.58 X10^3/uL; Monocyte% 8.4 % (0-10); NRBC Flagged by Analyzer 0 % (0-5); Neutrophil # 4.94 X10^3/uL (2.7-7.7); Neutrophil % 71.7 % (47-70); Platelet Count 210 K/mm3 (150-450); RBC Distribution Width CV 13.3 % (11.6-14.6); RBC Distribution Width SD 45.2 fl (35.1-43.9); Red Blood Count 4.44 M/mm3 (4.6-6.2); White Blood Count 6.9 K/mm3 (4.4-11.0)
[2024-04-02 10:35] LABS: Color, Urine Yellow (Yellow); Glucose, Dipstick 1000 mg/dl (Normal); Ketone-Dipstick Negative (Negative); Leukocyte Esterase-Dipstick Negative /ul (Negative); Nitrite-Dipstick Negative (Negative); Occult Blood-Urine 25 /ul (Negative); Protein-Dipstick 500 mg/dl (Negative); Specific Gravity, Urine 1.015 (1.002-1.030); Urine Bilirubin Dipstick Negative (Negative); Urine Clarity Clear (Clear); Urine Urobilinogen Normal (Normal)
[2024-04-02 10:42] LABS: Red Blood Cells-Urine 0-5 SEEN /hpf (0-5); Squamous Epithelial Cells - UA 0-5 SEEN /hpf (0-5); White Blood Cells 0-5 SEEN /hpf (0-5)
[2024-04-02 10:57] LABS: PTHIN 91.1 pg/mL (18.4-80.1)
[2024-04-02 11:10] LABS: ALB/GLOB Ratio 0.7 RATIO (0.9-2.4); AST(SGOT) 40 U/L (15-37); Alanine Aminotransfer ALT/SGPT 53 U/L (16-61); Albumin, Serum 2.7 g/dL (3.2-5.0); Alkaline Phosphatase 137 U/L (45-117); Anion Gap 6 (5-15); BUN 49 mg/dL (7-18); Chloride 104 mmol/L (98-107); Cholesterol 125 mg/dL (200); Creatinine, Serum 2.58 mg/dL (0.70-1.30); EST Glomerular Filtration Rate 26 mL/min (>60); Est Glom Filt Rate - Afr Amer 32 mL/min (>60); Globulin 3.7 g/dL (2.2-4.2); Glucose 200 mg/dL (74-106); High Density Lipoprotein 48 mg/dL; Potassium 4.5 mmol/L (3.5-5.1); Protein, Total 6.4 g/dL (6.4-8.2); Sodium Level 137 mmol/L (136-145); Triglycerides 103 mg/dL; Very Low Density Lipoprotein 21 mg/dL (5-40)
[2024-04-02 11:34] LABS: Microalbumin:Creatinine Ratio 3031.8 mg/g CRE (<30 mg/g CRE); Protein, Urine (Random) 234.8 mg/dL (<11.9); Protein:Creat Ratio 3933 mg/g CRE (0-200)
[2024-04-02 12:05] LABS: Hemoglobin A1c 6.9 % (3.8-5.6)
== END | disposition home or self-care (01) ==
LOC: MTLAB 08:13
PROVIDERS: PCP Family Medicine; Referring Provider Family Medicine; Visit Provider Family Medicine
DX: E11.22 Type 2 diabetes mellitus with diabetic chronic kidney disease (principal); E21.3 Hyperparathyroidism, unspecified; N18.9 Chronic kidney disease, unspecified
CPT/HCPCS: 36415; 80053; 80061; 81001; 82043; 82306; 82570; 83036; 83970; 84156; 85025

== ENCOUNTER → 2024-04-09 | Outpatient (CLI) | payer MEDICARE, OTHER, SELFPAY ==
--- NOTE | 2024-04-09 09:42 | ECHOD_ITS ---
Reason For Study Reason For Study: Thoracic Aortic Ectasia Procedure This was a 2D Doppler, Color Flow transthoracic echocardiogram. Exam performed in department. Left Ventricle Mildly dilated left ventricle. The global longitudinal strain = -12.2% (abnormal). The estimated ejection fraction is 25 %. There is evidence of diastolic dysfunction. Mild hypokinesis of the inferior wall and lateral wall. Severe hypokinesis of the anterior wall septum and apex. Right Ventricle Normal RV size. Normal systolic function. Atria The left and right atria are normal. No doppler evidence for ASD. Mitral Valve There is no mitral valve stenosis. Trivial mitral valve insufficiency. Tricuspid Valve There is no tricuspid stenosis. Trivial tricuspid valve insufficiency. Unable to estimate RV systolic pressure due to insufficient tricuspid regurgitant envelope. Aortic Valve Trisinus/trileaflet aortic valve. There is no aortic stenosis. No aortic valve insufficiency. Pulmonic Valve There is no pulmonic valvular stenosis. No pulmonic valve insufficiency. Great Vessels Normal sized aortic root. Pericardium/Pleural No pericardial effusion. MMode/2D Measurements & Calculations LVIDd: 6.0 cm IVSd: 0.96 cm Ao root diam: 3.8 cm LVIDs: 4.9 cm LVPWd: 1.1 cm RVDd: 4.1 cm FS: 17.9 % LAV(MOD-bp): 62.1 ml LVAd ap4: 45.2 cm2 SV(MOD-sp4): 66.2 ml LAV(MOD-bp) Indexed: 32.2 ml/m2 LVLd ap4: 9.6 cm SI(MOD-sp4): 34.4 ml/m2 LAV(MOD-sp2): 73.7 ml EDV(MOD-sp4): 175.3 ml LAV(MOD-sp4): 49.9 ml EDV(sp4-el): 180.2 ml LVAs ap4: 34.3 cm2 LVLs ap4: 8.9 cm ESV(MOD-sp4): 109.1 ml ESV(sp4-el): 112.1 ml EF(MOD-sp4): 37.8 % EF(sp4-el): 37.8 % SV(sp4-el): 68.0 ml LA A4 area: 17.3 cm2 LA dimension(2D): 4.7 cm RA A4 area: 12.1 cm2 TAPSE: 1.0 cm Time Measurements MV dec time: 0.28 sec Doppler Measurements & Calculations MV E max horace: 86.5 cm/sec Lat Peak E' Horace: 8.4 cm/sec Med Peak E' Horace: 6.8 cm/sec MV A max horace: 98.7 cm/sec E/E' lat: 10.3 E/E' med: 12.8 MV E/A: 0.88 MV V2 max: 130.0 cm/sec MV P1/2t max horace: 80.5 cm/sec Ao V2 max: 143.2 cm/sec MV max P.8 mmHg MV P1/2t: 102.1 msec Ao max P.2 mmHg MV V2 mean: 60.2 cm/sec Ao V2 mean: 102.4 cm/sec MV mean P.7 mmHg MV dec slope: 230.9 cm/sec2 Ao mean P.8 mmHg MV V2 VTI: 45.8 cm MVA(P1/2t): 2.2 cm2 Ao V2 VTI: 37.6 cm AV (velocity ratio): 0.61 LV V1 max: 89.4 cm/sec MR max horace: 474.5 cm/sec PA V2 max: 102.7 cm/sec LV V1 max P.2 mmHg MR max P.1 mmHg LV V1 mean P.0 mmHg LV V1 mean: 66.8 cm/sec LV V1 VTI: 23.1 cm ECHO/Echo Complete Interpretation Summary Mildly dilated left ventricle. The estimated ejection fraction is 25 %. There is evidence of diastolic dysfunction. Mild hypokinesis of the inferior wall and lateral wall. Severe hypokinesis of t he anterior wall septum and apex Trivial mitral valve insufficiency. Ordering Physician: Bala Han Referring Physician: Bala Han Performed By: Darryl Lujan RCS
== END | disposition home or self-care (01) ==
LOC: CVS 09:40
PROVIDERS: PCP Family Medicine; Referring Provider Family Medicine; Visit Provider Family Medicine
DX: I77.810 Thoracic aortic ectasia (principal)
CPT/HCPCS: 93306

== ENCOUNTER → 2024-06-04 | Outpatient (CLI) | payer MEDICARE, OTHER, SELFPAY ==
[2024-06-04 07:52] LABS: Bacteria 0 SEEN /hpf (None Seen); Mucous, Urine 0 SEEN /hpf (<or=2+); Squamous Epithelial Cells - UA 0 SEEN /hpf (0-5)
[2024-06-04 10:02] LABS: Absolute Lymphocyte Count 1.35 X10^3/uL (0.83-4.51); Absolute Neutrophil Count 6.2 X10^3/uL (2.0-7.7); Basophil# 0.04 X10^3/uL; Basophil% 0.5 % (0-1); Eosinophil# 0.41 X10^3/uL; Eosinophils% 4.8 % (0-5); Hematocrit 40.7 % (40-54); Hemoglobin 13.2 g/dL (13.0-16.5); Lymphocyte # 1.35 X10^3/ul (0.83-4.51); Lymphocyte % 15.7 % (19-41); Mean Corp Hgb Conc 32.4 g/dL (32-36); Mean Corpuscular Hgb 30.8 pg (27.0-32.0); Mean Corpuscular Volume 94.9 fL (80-94); Mean Platelet Vol. 8.5 fl (6.2-12.0); Monocyte# 0.56 X10^3/uL; Monocyte% 6.5 % (0-10); NRBC Flagged by Analyzer 0 % (0-5); Neutrophil # 6.17 X10^3/uL (2.7-7.7); Neutrophil % 71.9 % (47-70); Platelet Count 207 K/mm3 (150-450); RBC Distribution Width CV 13.2 % (11.6-14.6); RBC Distribution Width SD 44.7 fl (35.1-43.9); Red Blood Count 4.29 M/mm3 (4.6-6.2); White Blood Count 8.6 K/mm3 (4.4-11.0)
[2024-06-04 10:16] LABS: Color, Urine Straw (Yellow); Glucose, Dipstick 1000 mg/dl (Normal); Ketone-Dipstick Negative (Negative); Leukocyte Esterase-Dipstick Negative /ul (Negative); Nitrite-Dipstick Negative (Negative); Occult Blood-Urine 25 /ul (Negative); Protein-Dipstick 100 mg/dl (Negative); Specific Gravity, Urine 1.015 (1.002-1.030); Urine Bilirubin Dipstick Negative (Negative); Urine Clarity Clear (Clear); Urine Urobilinogen Normal (Normal)
[2024-06-04 10:29] LABS: Hemoglobin A1c 7.2 % (<=5.6)
[2024-06-04 10:36] LABS: Red Blood Cells-Urine 0-5 SEEN /hpf (0-5); White Blood Cells 0-5 SEEN /hpf (0-5)
[2024-06-04 11:00] LABS: Protein:Creat Ratio 3393 mg/g CRE (0-200)
[2024-06-04 11:13] LABS: ALB/GLOB Ratio 1.2 RATIO (0.9-2.4); AST(SGOT) 39 U/L (<=37); Alanine Aminotransfer ALT/SGPT 56 U/L (<=46); Albumin, Serum 3.4 g/dL (3.4-4.8); Alkaline Phosphatase 121 U/L (40-129); Anion Gap 11 (5-15); BUN 54 mg/dL (4-19); BUN/Creat Ratio 20.5 RATIO (10-20); Calcium,Total 8.8 mg/dL (7.6-11.0); Carbon Dioxide 23.1 mmol/L (21.0-32.0); Chloride 102 mmol/L (98-108); Cholesterol 134 mg/dL (<=200); Creatinine, Serum 2.61 mg/dL (0.70-1.20); EST Glomerular Filtration Rate 26 (>60); Globulin 2.8 g/dL (2.2-4.2); Glucose 196 mg/dL (70-99); High Density Lipoprotein 37 mg/dL; Low Density Lipoprotein Calc. 64 mg/dL; Magnesium 2.2 mg/dL (1.5-2.2); Phosphorus 4.4 mg/dL (2.7-4.5); Potassium 4.8 mmol/L (3.3-5.1); Protein, Total 6.2 g/dL (5.9-8.4); Sodium Level 136 mmol/L (133-145); Total Bilirubin 0.19 mg/dL (0.00-1.30); Triglycerides 166 mg/dL; Very Low Density Lipoprotein 33 mg/dL (5-40); cholesterol:hdl ratio screen 3.62
[2024-06-04 11:40] LABS: PTHIN 109 pg/mL (11-61)
== END | disposition home or self-care (01) ==
LOC: MTLAB 07:37
PROVIDERS: PCP Family Medicine; Referring Provider Internal Medicine Nephrology; Visit Provider Internal Medicine Nephrology
DX: E11.21 Type 2 diabetes mellitus with diabetic nephropathy (principal); N18.4 Chronic kidney disease, stage 4 (severe); E11.22 Type 2 diabetes mellitus with diabetic chronic kidney disease
CPT/HCPCS: 36415; 80053; 80061; 81001; 82570; 83036; 83735; 83970; 84100; 84156; 84439; 84443; 85025

== ENCOUNTER → 2024-06-07 | Outpatient (CLI) | payer MEDICARE, OTHER, SELFPAY | END | disposition home or self-care (01) | LOC: MTLAB 07:52 | PROVIDERS: PCP Family Medicine; Referring Provider Family Medicine; Visit Provider Family Medicine | DX: R79.89 Other specified abnormal findings of blood chemistry (principal) | CPT/HCPCS: 36415; 84432; 84439; 86376; 86800 ==

== ENCOUNTER → 2024-07-05 | Outpatient (CLI) | payer MEDICARE, OTHER, SELFPAY | END | disposition home or self-care (01) | LOC: PSN 07:52 | PROVIDERS: PCP Family Medicine; Referring Provider Student in an Organized Health Care Education/Training Program; Visit Provider Student in an Organized Health Care Education/Training Program | DX: I47.19 Other supraventricular tachycardia (principal); R00.2 Palpitations | CPT/HCPCS: 93225; 93226 ==

== ENCOUNTER → 2024-07-30 | Outpatient (CLI) | payer MEDICARE, OTHER, SELFPAY ==
[2024-07-30 17:59] LABS: Absolute Lymphocyte Count 0.99 X10^3/uL (0.83-4.51); Absolute Neutrophil Count 4.3 X10^3/uL (2.0-7.7); Basophil# 0.03 X10^3/uL; Basophil% 0.5 % (0-1); Eosinophil# 0.33 X10^3/uL; Eosinophils% 5.2 % (0-5); Hematocrit 39.2 % (40-54); Hemoglobin 12.3 g/dL (13.0-16.5); Lymphocyte # 0.99 X10^3/ul (0.83-4.51); Lymphocyte % 15.7 % (19-41); Mean Corp Hgb Conc 31.4 g/dL (32-36); Mean Corpuscular Hgb 30.7 pg (27.0-32.0); Mean Corpuscular Volume 97.8 fL (80-94); Mean Platelet Vol. 8.8 fl (6.2-12.0); Monocyte# 0.62 X10^3/uL; Monocyte% 9.8 % (0-10); NRBC Flagged by Analyzer 0 % (0-5); Neutrophil % 68.3 % (47-70); Platelet Count 186 K/mm3 (150-450); RBC Distribution Width CV 13.5 % (11.6-14.6); RBC Distribution Width SD 48.5 fl (35.1-43.9); Red Blood Count 4.01 M/mm3 (4.6-6.2); White Blood Count 6.3 K/mm3 (4.4-11.0)
[2024-07-30 18:36] LABS: Hemoglobin A1c 6.8 % (<=5.6)
[2024-07-30 18:42] LABS: ALB/GLOB Ratio 1.4 RATIO (0.9-2.4); AST(SGOT) 34 U/L (<=37); Alanine Aminotransfer ALT/SGPT 46 U/L (<=46); Albumin, Serum 3.6 g/dL (3.4-4.8); Alkaline Phosphatase 126 U/L (40-129); Anion Gap 12 (5-15); BUN 53 mg/dL (4-19); BUN/Creat Ratio 19.2 RATIO (10-20); Calcium,Total 8.6 mg/dL (7.6-11.0); Carbon Dioxide 19.9 mmol/L (21.0-32.0); Chloride 101 mmol/L (98-108); Cholesterol 115 mg/dL (<=200); Creatinine, Serum 2.76 mg/dL (0.70-1.20); EST Glomerular Filtration Rate 24 (>60); Globulin 2.5 g/dL (2.2-4.2); Glucose 167 mg/dL (70-99); High Density Lipoprotein 42 mg/dL; Low Density Lipoprotein Calc. 39 mg/dL; Magnesium 2.3 mg/dL (1.5-2.2); Potassium 4.6 mmol/L (3.3-5.1); Protein, Total 6.1 g/dL (5.9-8.4); Sodium Level 132 mmol/L (133-145); Total Bilirubin 0.25 mg/dL (0.00-1.30); Triglycerides 174 mg/dL; Very Low Density Lipoprotein 35 mg/dL (5-40); cholesterol:hdl ratio screen 2.76
[2024-07-30 19:17] LABS: Microalbumin:Creatinine Ratio 2470.9 mg/g CRE; Protein:Creat Ratio 3547 mg/g CRE (0-200)
== END | disposition home or self-care (01) ==
LOC: MTLAB 14:20
PROVIDERS: PCP Family Medicine; Referring Provider Family Medicine; Visit Provider Family Medicine
DX: E11.8 Type 2 diabetes mellitus with unspecified complications (principal); I48.91 Unspecified atrial fibrillation; E03.9 Hypothyroidism, unspecified
CPT/HCPCS: 36415; 80053; 80061; 82043; 82306; 82570; 83036; 83735; 84156; 84439; 84443; 85025

== ENCOUNTER → 2024-09-26 | Outpatient (CLI) | payer MEDICARE, OTHER, SELFPAY ==
--- NOTE | 2024-09-26 12:54 | ECHOL_ITS ---
Reason For Study Reason For Study: Assess EF Procedure This was a limited 2D transthoracic echocardiogram. Myocardial strain analysis was performed in this exam to aid in the assessment of cardiac function. Exam performed in department. Left Ventricle Normal LV size. The left ventricular ejection fraction is 45 %. Mild to moderate segmental systolic dysfunction (see wall motion). Septal [place] : Akinetic. Lateral [place] : Hypokinetic. Mid- anteroseptal : Hypokinetic. There are regional wall motion abnormalities as specified. Anterio-Basal: Normal. Lateral-Basal: Normal. Right Ventricle Normal RV size. Normal systolic function. Atria Normal left atrium. Normal right atrium. Mitral Valve Normal mitral valve. Tricuspid Valve Normal tricuspid valve. Aortic Valve Trisinus/trileaflet aortic valve. Pulmonic Valve Normal pulmonic valve. Great Vessels Normal aortic root. The pulmonary artery is normal size. Inferior vena cava collapse with respiration. Pericardium/Pleural No pericardial effusion. MMode/2D Measurements & Calculations LVIDd: 6.0 cm IVSd: 1.1 cm LAV(MOD- bp): 76.5 ml LVIDs: 4.6 cm LVPWd: 1.3 cm LAV(MOD- bp) Indexed: 38.7 ml/m2 FS: 22.1 % LAV(MOD- sp2): 79.7 ml LAV(MOD- sp4): 69.0 ml SV(MOD- sp4): 80.6 ml LVAd ap4: 46.1 cm2 LVAd ap2: 45.9 cm2 LVLd ap4: 9.6 cm LVLd ap2: 9.8 cm SI(MOD- sp4): 40.8 ml/m2 EDV(MOD-sp4): 186.0 ml EDV(MOD-sp2): 179.7 ml EDV(sp4-el): 188.3 ml EDV(sp2-el): 182.3 ml LVAs ap4: 33.0 cm2 LVAs ap2: 30.9 cm2 LVLs ap4: 8.3 cm LVLs ap2: 9.1 cm ESV(MOD-sp4): 105.4 ml ESV(MOD-sp2): 84.3 ml ESV(sp4-el): 111.1 ml ESV(sp2-el): 89.5 ml EF(MOD-sp4): 43.3 % EF(MOD-sp2): 53.1 % EF(sp4-el): 41.0 % SV(MOD-sp2): 95.4 ml SV(sp4-el): 77.2 ml LA A4 area: 21.0 cm2 SI(MOD-sp2): 48.3 ml/m2 RA A4 area: 10.6 cm2 ECHO/Echo, Limited Study Interpretation Summary Normal LV size. The left ventricular ejection fraction is 45 %. Mild to moderate segmental systolic dysfunction (see wall motion). The global longitudinal strain is moderately abnormal. The global longitudinal strain = -12.4% (abnormal). Ordering Physician: Roman Pham Referring Physician: Roman Pham Performed By: Vandana Rajan RCS
== END | disposition home or self-care (01) ==
LOC: CVS 12:54
PROVIDERS: PCP Family Medicine; Referring Provider Student in an Organized Health Care Education/Training Program; Visit Provider Student in an Organized Health Care Education/Training Program
DX: I25.5 Ischemic cardiomyopathy (principal); I50.22 Chronic systolic (congestive) heart failure
CPT/HCPCS: 93308

== ENCOUNTER → 2024-10-23 | Outpatient (CLI) | payer MEDICARE, OTHER, SELFPAY ==
[2024-10-23 07:34] LABS: Mucous, Urine 0 SEEN /hpf (<or=2+); Squamous Epithelial Cells - UA 0 SEEN /hpf (0-5)
[2024-10-23 10:20] LABS: Glucose, Dipstick 1000 mg/dl (Normal); Ketone-Dipstick Negative (Negative); Leukocyte Esterase-Dipstick Negative /ul (Negative); Nitrite-Dipstick Negative (Negative); Occult Blood-Urine 50 /ul (Negative); Protein-Dipstick 500 mg/dl (Negative); Specific Gravity, Urine 1.010 (1.002-1.030); Urine Bilirubin Dipstick Negative (Negative)
[2024-10-23 10:26] LABS: Color, Urine Straw (Yellow)
[2024-10-23 10:26] LABS: Hematocrit 40.4 % (40-54); Hemoglobin 12.9 g/dL (13.0-16.5); Immature Granulocytes Count 0.030 X10^3/uL (0.0-0.0); Mean Corp Hgb Conc 31.9 g/dL (32-36); Mean Corpuscular Volume 96.2 fL (80-94); Mean Platelet Vol. 9.1 fl (6.2-12.0); NRBC Flagged by Analyzer 0 % (0-5); Platelet Count 204 K/mm3 (150-450); RBC Distribution Width CV 13.6 % (11.6-14.6); RBC Distribution Width SD 47.9 fl (35.1-43.9); Red Blood Count 4.20 M/mm3 (4.6-6.2); White Blood Count 6.5 K/mm3 (4.4-11.0)
[2024-10-23 10:29] LABS: Red Blood Cells-Urine 0-5 SEEN /hpf (0-5)
[2024-10-23 10:50] LABS: Microalbumin,Random Urine 1119.0 mg/L (<20 mg/L)
[2024-10-23 10:54] LABS: AST(SGOT) 39 U/L (<=37); Alanine Aminotransfer ALT/SGPT 54 U/L (<=46); Albumin, Serum 3.8 g/dL (3.4-4.8); Alkaline Phosphatase 109 U/L (40-129); Anion Gap 12 (5-15); BUN 48 mg/dL (4-19); BUN/Creat Ratio 16.9 RATIO (10-20); Calcium,Total 9.3 mg/dL (7.6-11.0); Carbon Dioxide 23.2 mmol/L (21.0-32.0); Chloride 101 mmol/L (98-108); Cholesterol 127 mg/dL (<=200); Globulin 2.9 g/dL (2.2-4.2); Glucose 136 mg/dL (70-99); Low Density Lipoprotein Calc. 59 mg/dL; Magnesium 2.4 mg/dL (1.5-2.2); Potassium 4.6 mmol/L (3.3-5.1); Triglycerides 104 mg/dL; Uric Acid 3.8 mg/dL (3.5-7.2); Very Low Density Lipoprotein 21 mg/dL (5-40); cholesterol:hdl ratio screen 2.70
== END | disposition home or self-care (01) ==
LOC: MTLAB 07:29
PROVIDERS: PCP Family Medicine; Referring Provider Family Medicine; Visit Provider Family Medicine
DX: E11.59 Type 2 diabetes mellitus with other circulatory complications (principal); E11.22 Type 2 diabetes mellitus with diabetic chronic kidney disease; E03.9 Hypothyroidism, unspecified
CPT/HCPCS: 36415; 80053; 80061; 81001; 82043; 83036; 83735; 84439; 84443; 84550; 85025

== ENCOUNTER → 2024-11-29 | Outpatient (CLI) | payer MEDICARE, OTHER, SELFPAY ==
--- OUTSIDE RECORDS SUMMARY | 2024-11-29 14:49 | XMS RPT_ITS | CCD ---
Author Organization [facility] Care Team Providers Care Copyholder Name Role Phone Dr. Piedad Han Primary Care Provider Dr. Primitivo Gilliam Attending Provider Dr. Piedad Han Referring Provider Dr. Pedro Ibarra Attending Provider Piedad Han MD Primary Care Provider Pedro Ibarra MD Unavailable Dameon TRINH, Raúl Unavailable PIEDAD HAN Primary Care Unavailable PIEDAD HAN Primary Care Unavailable PIEDAD HAN Primary Care Unavailable PEDRO IBARRA Referring Unavailable PIEDAD HAN Primary Care Unavailable Piedad Han MD Primary Care Provider Yessenia Oconnor DO Unavailable Dr. Piedad Han MD Primary Care Provider [phone] Dr. Piedad Han MD Attending Provider Dr. Piedad Han MD Referring Provider [phone] Dr. Emma Olmos MD Attending Provider Dr. Myrna Barrios DO Attending Provider Dr. Myrna Barrios DO Referring Provider Dr. Gilmer Corcoran MD Attending Provider Roman Wilkins Attending Provider [phone] Roman Wilkins Referring Provider [phone] Piedad Han MD Primary Care Provider Dr. Piedad Han MD Attending Provider Dr. Piedad Han MD Referring Provider [phone] MONICA HOYT Attending Unavailable PIEDAD HAN Primary Care Unavailable YESSENIA OCONNOR Attending UnavailPIEDAD Ivan Primary Care Unavailable MONICA HOYT Attending Unavailable PIEDAD HAN Primary Care Unavailable JENNIFER SMITH Referring Unavailable CAROLEE MACK Attending Unavailable PIEDAD HAN Primary Care Unavailable MONICA HOYT Referring Unavailable PIEDAD HAN Primary Care Unavailable ELENA JORDAN Referring Unavailable PIEDAD HAN Primary Care Unavailable ELENA JORDAN Attending Unavailable PIEDAD HAN Primary Care Unavailable MONICA HOYT Referring Unavailable PIEDAD HAN Primary Care Unavailable Dr. Piedad Han MD Primary Care Provider [phone] Dr. Piedad Han MD Attending Provider Dr. Piedad Han MD Referring Provider Dr. Primitivo Gilliam MD Attending Provider Dr. Piedad Han MD Primary Care Physician Dr. Piedad Han MD Attending Physician Dr. Piedad Han MD Referring Provider Roman Wilkins Attending Physician [phone] Roman Wilkins Referring Provider Dr. Primitivo Gilliam MD Attending Physician [phone] Roman Pham Referring Unavailable Roman Pham Attending Unavailable Piedad Han Primary Care Unavailable Piedad Han Attending Unavailable Piedad Han Primary Care Unavailable Piedad Han Referring Unavailable Piedad Han Primary Care Unavailable Emma Olmos Attending UnavailRoman Rivera Referring Unavailable Piedad Han Primary Care Unavailable Gilmer Corcoran Attending Unavailable Piedad Han Referring Unavailable Roman Pham Attending Unavailable Schinner, Piedad E Primary Care Unavailable Schinner, Piedad E Primary Care Unavailable Schinner, Piedad E Referring Unavailable Gilmer Corcoran Attending Unavailable Schinner, Piedad E Primary Care Unavailable Schinner, Piedad E Referring Unavailable Roman Pham Attending Unavailable Roman Pham Attending Unavailable Schinner, Piedad E Primary Care Unavailable Schinner, Piedad E Referring Unavailable Schinner, Piedad E Primary Care Unavailable Primitivo Gilliam Attending Unavailable Roman Pham Attending Unavailable Roman Pham Referring Unavailable Schinner, Piedad E Primary Care Unavailable Schinner, Piedad E Primary Care Unavailable Schinner, Piedad E Referring Unavailable Schinner, Piedad E Attending Unavailable Schinner, Piedad E Primary Care Unavailable Schinner, Piedad E Referring Unavailable Schinner, Piedad E Attending Unavailable Schinner, Piedad E Primary Care Unavailable Myrna Barrios Referring Unavailable Myrna Barrios Attending Unavailable Schinner, Piedad E Primary Care Unavailable Schinner, Piedad E Referring Unavailable Schinner, Piedad E Attending Unavailable Schinner, Piedad E Primary Care Unavailable Schinner, Piedad E Referring Unavailable SchinnerPiedad E Attending Unavailable Schinner, Piedad E Primary Care Unavailable Schinner, Piedad E Referring Unavailable SchinnerPiedad E Attending Unavailable Schinner, Piedad E Primary Care Unavailable Myrna Barrios Attending Unavailable Allergies Allergy Classification Reported Allergen(s) Allergy Type Date of Onset Reaction(s) Facility (20 sources) Lisinopril; Translations: [LISINOPRIL] Drug Allergy 09-30-2022 Swelling [facility] Comment on above: lip swelling (1 source) Lisinopril Drug Allergy 07-12-2024 [facility] Repository Medications Current Medications Medication Drug Class(es) Dates Sig (Normalized) Sig (Original) allopurinol 300 mg oral tablet (20 sources) Xanthine Oxidase Inhibitor Start: 09-30-2022 take 1 tablet by mouth once daily Comment on above: Take 300 mg by mouth once daily. amLODIPine 10 mg oral tablet (20 sources) Dihydropyridine Calcium Channel Carl Start: 06-07-2024 take 1 tablet by mouth once daily Start: 10-11-2022 End: 06-07-2024 take 1 tablet by mouth once daily Amlodipine 5 mg tablet Discontinued 5 mg PO DAILY 90 3 September 15, 2023 8:11am June 07, 2024 3:25pm Start: 09-30-2022 End: 10-11-2022 take 1 tablet by mouth once daily Amlodipine 10 mg tablet Discontinued 10 mg PO DAILY September 30, 2022 12:00am October 11, 2022 11:01am take 5 mg by mouth once daily am LODIPine (NORVASC) 10 mg tablet Take 5 mg by mouth once daily. Active Comment on above: Take 10 mg by mouth once daily. Take 5 mg by mouth o nce daily. aspirin 81 mg delayed release oral tablet (20 sources) Platelet Aggregation Inhibitor, Nonsteroidal Anti-inflammatory Drug Start: 023 take 1 tablet by mouth once daily Comment on above: Take 81 mg by mouth once daily. Blood-Glucose Meter,Continuous (FREESTYLE YAZMIN 3 READER) misc (7 sources) Start: Blood-Glucose Meter,Continuous (FREESTYLE YAZMIN 3 READER) misc DISPENSE ONE READER KIT. USE FOR CONTINUOUS GLUCOSE MONITORING. MULTIPLE INSULIN INJECTIONS. E11.9 1 each 05/29/2024 Active Blood-Glucose Sensor (FREESTYLE YAZMIN 3 PLUS SENSOR) kathleen (7 sources) Start: Blood-Glucose Sensor (FREESTYLE YAZMIN 3 PLUS SENSOR) kathleen CHANGE SENSOR EVERY 15 days. USE FOR CONTINUOUS GLUCOSE MONITORING. MULTIPLE INSULIN INJECTIONS E11.9 6 each 3 05/29/2024 Active 12 hr buPROPion hydrochloride 150 mg extended release oral tablet (20 sources) Aminoketone Start: 017 take 1 tablet by mouth twice daily Comment on above: Take 150 mg by mouth twice daily. cholecalciferol 0.05 mg oral capsule (6 sources) Vitamin D Start: 025 take 1 capsule by mouth once daily dapagliflozin 10 mg oral tablet (20 sources) Sodium-Glucose Cotransporter 2 Inhibitor Start: 023 End: 024 take 0.5 tablet by mouth once daily at breakfast dapagliflozin propanediol (FARXIGA) 10 mg tablet Take 0.5 tablets by mouth daily with breakfast. 45 tablet 3 02/02/2023 04/18/2023 Discontinued (Adjust Sig - Block E-Cancel) Start: 10-11-2022 End: 03-07-2025 take 1 tablet by mouth once daily Comment on above: Take 1 tablet by fela th daily with breakfast. Take 0.5 tablets by mouth daily with breakfast. Finerenone (20 sources) Start: 06-07-2024 take 1 tablet by mouth twice daily Start: 06-07-2024 take 1 tablet by fela th twice daily Finerenone (Kerendia) 10 mg tablet Active 20 mg PO TWICE A DAY June 07, 2024 3:27pm Start: 10-11-2022 End: 06-07-2024 take 1 tablet by mouth once daily Finerenone (Kerendia) 10 mg tablet Discontinued 20 mg PO DAILY October 11, 2022 10:17am June 07, 2024 3:30pm Start: 10-11-2022 take 1 tablet by fela th once daily Finerenone (Kerendia) 10 mg tablet Active 20 mg PO DAILY October 11, 2022 10:17am Start: 10-11-2022 take 1 tablet by fela th once daily Finerenone (Kerendia) 10 mg tablet Active 20 MG PO DAILY October 11, 2022 9:17am Start: 10-11-2022 take 1 tablet by fela th once daily Finerenone (Kerendia) 10 mg tablet Active 20 MG PO DAILY October 11, 2022 10:17am Start: 09-30-2022 End: 10-11-2022 take 1 tablet by mouth once daily Finerenone (Kerendia) 10 mg tablet Discontinued 10 mg PO DAILY September 30, 2022 12:00am October 11, 2022 10:18am Start: 09-30-2022 End: 10-11-2022 take 1 tablet by mouth once daily Finerenone (Kerendia) 10 mg tablet Discontinued 10 MG PO DAILY September 29, 2022 11:00pm October 11, 2022 9:18am Start: 09-30-2022 End: 10-11-2022 take 1 tablet by mouth once daily Finerenone (Kerendia) 10 mg tablet Discontinued 10 MG PO DAILY September 30, 2022 12:00am October 11, 2022 10:18am hydrALAZINE hydrochloride 10 mg oral tablet (20 sources) Arteriolar Vasodilator Start: 06-21-2024 End: 10-09-2024 take 1 tablet by mouth three times daily Start: 10-11-2022 End: 06-07-2024 take 1 tablet by mouth three times daily Hydralazine 25 mg tablet Discontinued 25 mg PO THREE TIMES A DAY 270 November 09, 2022 1:15pm June 07, 2024 3:27pm Comment on above: 25 mg three times a day. 3 ml insulin aspart, human 1 00 unt/ml pen injector (20 sources) Insulin Analog Start: 06-21-2024 Start: 06-07-2024 End: 06-21-2024 Insulin Aspart U-100 (Novolo g Flexpen U-100 Insulin) 100 unit/mL (3 mL) insulin pen Discontinued 9 U SC THREE TIMES A DAY June 07, 2024 12:00am June 21, 2024 3:40pm Start: 11-08-2023 insulin aspart U-100 (NOVOLOG FLEXPEN U-100 INSULIN) 100 unit/mL (3 mL) Inject 5 units with meals PLUS SS#1 - pre meal blood sugar only (1 unit for every 50 over 150 PRE MEAL) TDD 20 units 11/08/2023 Active Start: 02-02-2023 End: 11-08-2023 insulin aspart U-100 (NOVOLO G FLEXPEN U-100 INSULIN) 100 unit/mL (3 mL) Inject 9 units with meals. Based on pre-meal blood sugar use following scale to add additional units as needed: 151-200 = 2 units. 201-250 = 4 units. 251-300 = 6 units. 301-350 = 8 units. 351- 400 = 10 units. 5 Each 02/02/2023 11/08/2023 Discontinued Comment on above: Inject 9 units with meals. Based on pre-meal blood sugar use following scale to add additional units as needed: 151-200 = 2 units. 201-250 = 4 units. 251-300 = 6 units. 301-350 = 8 units. 351- 400 = 10 units. 3 ml insulin glargine 100 unt/ml pen injector (20 sources) Insulin Analog Start: 05-29-2024 Start: 11-08-2023 End: 05-29-2024 insulin glargine (LANTUS PATRICIA OSTAR U-100 INSULIN) 100 unit/mL (3 mL) Inject 14 units once daily 11/08/2023 05/29/2024 Discontinued Start: 05-10-2023 End: 11-08-2023 insulin glargine (LANTUS PATRICIA OSTAR U-100 INSULIN) 100 unit/mL (3 mL) Taking 20 units in the moring 05/10/2023 11/08/2023 Discontinued Start: 02-02-2023 End: 05-10-2023 insulin glargine (LANTUS PATRICIA OSTAR U-100 INSULIN) 100 unit/mL (3 mL) Inject 36 Units subcutaneously every morning. 5 Each 0 02/02/2023 05/10/2023 Discontinued Start: 09-30-2022 End: 06-07-2024 Insulin Glargine (Lantus Patricia ostar U-100 Insulin) 100 unit/mL (3 mL) insulin pen Discontinued 10 U SC TWICE A DAY September 30, 2022 12:00am June 07, 2024 3:28pm Start: 02-11-2020 LANTUS SOLOSTA R U-100 INSULIN 100 unit/mL (3 mL) two times a day. 10-12 units BID 0 02/11/2020 Suspended Start: 02-11-2020 LANTUS SOLOSTA R U-100 INSULIN 100 unit/mL (3 mL) twice daily. 0 02/11/2020 Active Comment on above: twice daily. two times a day. 10- 12 units BID Inject 36 Units subc utaneously every morning. Taking 20 units in [facility] isosorbide dinitrate 5 mg oral tablet (20 sources) Nitrate Vasodilator Start: 06-21-2024 End: 10-09-2024 take 1 tablet by mouth three times daily Start: 02-02-2023 End: 11-08-2023 take 0.5 tablet by mouth three times daily isosorbide dinitrate (ISORDIL) 20 mg tablet Take 0.5 tablets by mouth three times a day. 02/02/2023 11/08/2023 Discontinued Start: 10-11-2022 End: 06-07-2024 take 1 tablet by mouth three times daily Isosorbide Dinitrate 20 mg tablet Discontinued 20 mg PO THREE TIMES A DAY 270 November 09, 2022 1:15pm June 07, 2024 3:27pm allow nitrate-free interval of 12-14 hrs per 24-hr period Comment on above: Take 20 mg by mouth three times a day. Take 0.5 tablets by mouth three times a day. KERENDIA 20 mg tablet (15 sources) take 1 tablet by mouth once daily KERENDIA 20 mg tablet Take 20 mg by mouth once daily. Active levothyroxine sodium 0.175 mg oral tablet (20 sources) l-Thyroxine Start: 3 levothyroxine (SYNTHROID) 175 mcg tablet Take 150 mcg by mouth daily before breakfast. 11/13/2022 Active Start: 09-30-2022 take 1 tablet by mouth once da courtney Comment on above: 175 mcg once daily. 24 hr metoprolol succinate 50 mg extended release oral tablet (20 sources) beta-Adrenergic Carl Start: 06-07-2024 take 1 tablet by mouth twice daily Start: 02-02-2023 End: 04-18-2023 take 1 tablet by mouth twice daily Metoprolol Succinate 50 mg tablet extended release 24 hr Active 50 mg PO TWICE A DAY June 07, 2024 3:28pm Start: 09-30-2022 End: 06-07-2024 take 1 tablet by mouth once daily Metoprolol Succinate 50 mg tablet extended release 24 hr Discontinued 50 mg PO DAILY September 30, 2022 12:00am June 07, 2024 3:30pm Comment on above: Take 50 mg by mouth once daily. Take 1 tablet by fela th two times a day. OTC PRODUCT (20 sources) OTC PRODUCT Stoo l softner daily Active OTC PRODUCT Stoo l softner daily 0 Suspended OTC PRODUCT Stoo l softner daily 0 Active Comment on above: Stool softner daily polyethylene glycol 3350 80068 mg powder for oral solution (6 sources) Osmotic Laxative Start: 5 polyethylene glycol 3350 377361 mg / potassium chloride 2970 mg / sodium bicarbonate 6740 mg / sodium chloride 5860 mg / sodium sulfate 63578 mg powder for oral solution (1 source) Osmotic Laxative Start: 4 End: 4 peg 3350-Electrolytes (GOLYTELY) 236-22.74-6.74 -5.86 gram suspension Indications: Special screening for malignant neoplasms, colon Take 4,000 mL by mouth one time only for 1 dose. Refer to printed prep instructions from your provider. 4000 mL 0 08/04/2023 08/04/2023 Active rosuvastatin calcium 40 mg oral tablet (20 sources) HMG-CoA Reductase Inhibitor Start: 5 take 1 tablet by mouth at bedtime Start: 06-07-2024 take 1 tablet by [facility] at bedtime Rosuvastatin 40 mg tablet Active 40 mg PO AT BEDTIME June 07, 2024 12:00am Start: 09-30-2022 End: 06-07-2024 take 1 tablet by mouth once daily Rosuvastatin 20 mg tablet Discontinued 20 mg PO DAILY September 30, 2022 12:00am June 07, 2024 3:25pm take 2 tablets by mo [facility] once daily rosuvastatin (CRESTOR) 20 mg tablet Take 40 mg by mouth once daily. Active Comment on above: Take 20 mg by mouth once daily. sacubitril 24 mg / valsartan 26 mg oral tablet (2 sources) Angiotensin 2 Receptor Carl Start: 08-05-2024 take 1 tablet by mouth twice daily sacubitril-valsa rtan (ENTRESTO) 24-26 mg tablet Take 1 tablet by mouth two times a day. 180 tablet 3 08/05/2024 Active Completed/Discontinued Medications Medication Drug Class(es) Dates Sig (Normalized) Sig (Original) acetaminophen 325 mg oral tablet (15 sources) Start: 02-02-2023 End: 11-08-2023 take 2 tablets by mouth every four hours as needed acetaminophen (TYLENOL) 325 mg tablet Take 2 tablets by mouth every 4 hours as needed (mild to moderate pain). 02/02/2023 11/08/2023 Discontinued Comment on above: Take 2 tablets by [facility] every 4 hours as needed (mild to moderate pain). benzonatate 100 mg oral capsule (6 sources) Non-narcotic Antitussive Start: 01-17-2017 End: 01-09-2023 take 1 capsule by mouth three times daily as needed for cough benzonatate (TESSALON PERLES) 100 mg capsule Indications: Acute maxillary sinusitis, recurrence not specified , Cough Take 1 capsule by mouth three times daily as needed for Cough. 21 capsule 0 01/17/2017 01/09/2023 Discontinued Comment on above: Take 1 capsule by [facility] three times daily as needed for Cough. Blood-Glucose Sensor (FREESTYLE YAZMIN 3 SENSOR) kathleen (17 sources) Start: 05-10-2023 End: 05-29-2024 Blood-Glucose Sensor (FREESTYLE YAZMIN 3 SENSOR) kathleen CHANGE sensor every 14 days. USE FOR CONTINUOUS GLUCOSE MONITORING. MULTIPLE INSULIN INJECTIONS. E11.9 6 Each 3 05/10/2023 05/29/2024 Discontinued Start: 05-10-2023 Blood-Glucose Sensor (FREESTYLE YAZMIN 3 SENSOR) kathleen CHANGE sensor every 14 days. USE FOR CONTINUOUS GLUCOSE MONITORING. MULTIPLE INSULIN INJECTIONS. E11.9 6 Each 3 05/10/2023 Active Comment on above: CHANGE sensor every 14 days. USE FOR CONTINUOUS GLUCOSE MONITORING. MULTIPLE INSULIN INJECTIONS. E11.9 calcium chloride 0.0014 meq/ml / potassium chloride 0.004 meq/ml / sodium chloride 0.103 meq/ml / sodium lactate 0.028 meq/ml injectable solution (1 source) Start : 10-23 End: 10-23 take 75 mL intravenously every hour 75 mL/hr, INTRAVENOUS, CONTINUOUS, Starting on Mon10/24/23 at 0700, Until Mon10/24/23 at 0815, Preprocedure diphenhydrAMINE (1 source) Histamine-1 Receptor Antagonist Start : 10-23 End: 10-23 12.5-50 mg, INTRAVENOUS, DIRECTED, Starting on Mon10/24/23 at 0800, Until Mon10/24/23 at 1159, DOSING DIRECTED BY PHYSICIAN FOR PROCEDURAL SEDATION ONLY, Intraprocedure docusate sodium 50 mg / sennosides, group home 8.6 mg oral tablet (20 sources) Start : 02-02 End: 05-29 take 1 tablet by mouth twice daily as needed for constipation senna-docusate (SENNA-S) 8.6-50 mg per tablet Take 1 tablet by mouth two times a day. Continue while on narcotic pain meds &/or as needed thereafter for mild post-op constipation & stool softening. 28 tablet 02/02/2023 05/29/2024 Discontinued Comment on above: Take 1 tablet by fela th two times a day. Continue while on narcotic pain meds &/or as needed thereafter for mild post-op constipation & stool softening. 1 ml fentaNYL 0.05 mg/ml injection (1 source) Opioid Agonist Start : 10-23 End: 10-23 25-100 mcg, INTRAVENOUS, DIRECTED, Starting on Mon10/24/23 at 0800, Until Mon10/24/23 at 1159, DOSING DIRECTED BY PHYSICIAN FOR PROCEDURAL SEDATION ONLY, Intraprocedure furosemide 20 mg oral tablet (5 sources) Loop Diuretic Start : 02-03 End: 04-17 take 1 tablet by mouth once daily furosemide (LASIX) 20 mg tablet Take 1 tablet by mouth once daily. 30 tablet 0 02/03/2023 04/18/2023 Discontinued Comment on above: Take 1 tablet by fela once daily. lisinopril 10 mg oral tablet (6 sources) Angiotensin Converting Enzyme Inhibitor End: 01-09 take 1 tablet by mouth once daily lisinopril (ZESTRIL, PRINIVIL) 10 mg tablet Take 10 mg by mouth once daily. 0 01/09/2023 Discontinued Comment on above: Take 10 mg by mouth once daily. 5 ml midazolam 1 mg/ml injection (1 source) Benzodiazepine Start : 10-23 End: 10-23 1-5 mg, INTRAVENOUS, DIRECTED, Starting on Mon10/24/23 at 0800, Until Mon10/24/23 at 1159, DOSING DIRECTED BY PHYSICIAN FOR PROCEDURAL SEDATION ONLY, Intraprocedure mometasone furoate 0.05 mg/actuat metered dose nasal spray (6 sources) Corticosteroid Start : 01-17 End: 01-09 take 2 spray(s) nasal route once daily mometasone (NASONEX) 50 mcg/actuation nasal spray Indications: Acute maxillary sinusitis, recurrence not specified Use 2 Sprays in each nostril once daily. 1 Bottle 0 01/17/2017 01/09/2023 Discontinued Comment on above: Use 2 Sprays in each nostril once daily. mupirocin 0.02 mg/mg topical ointment (1 source) RNA Synthetase Inhibitor Antibacterial Start : 01-25 mupirocin (BACTROBAN) 2 % ointment Apply a small amount in each nostril using a cotton swab twice the day before surgery and once the morning of surgery. 22 g 0 01/25/2023 Suspended Comment on above: Apply a small amount in each nostril using a cotton swab twice the day before surgery and once the morning of surgery. pantoprazole 20 mg delayed release oral tablet (4 sources) Proton Pump Inhibitor Start : 02-03 End: 04-17 take 1 tablet by mouth once daily in the morning pantoprazole DR (PROTONIX) 20 mg tablet Take 1 tablet by mouth daily at 6 am for 14 days. 14 tablet 0 02/03/2023 04/18/2023 Discontinued Comment on above: Take 1 tablet by fela th daily at 6 am for 14 days. perflutren lipid microspheres 1.3 mL in NaCl (PF) 0.9% 10 mL injection (DEFINITY) (4 sources) Start : 01-09 End: 01-16 perflutren lipid microspheres 1.3 mL in NaCl (PF) 0.9% 10 mL injection (DEFINITY) microencapsulated potassium chloride 10 meq extended release oral tablet (5 sources) Start : 02-03 End: 04-17 take 1 tablet by mouth once daily potassium chloride ER (KLOR-CON M10) 10 mEq tablet Take 1 tablet by mouth once daily. 30 tablet 0 02/03/2023 04/18/2023 Discontinued (Course of therapy completed) Comment on above: Take 1 tablet by fela th once daily. 0.25 mg, 0.5 mg dose 1.5 ml semaglutide 1.34 mg/ml pen injector (6 sources) End: 01-09 semaglutide (OZEMPIC) 0.25 mg or 0.5 mg(2 mg/1.5 mL) pnij Inject 0.25 mg subcutaneously one time a week. 0 01/09/2023 Discontinued Comment on above: Inject 0.25 mg subcu taneously one time a week. 125 ml sodium chloride 9 mg/ml prefilled syringe (4 sources) Start : 01-09 End: 01-16 sodium chloride 0.9 % (flush) 10 mL (BD POSIFLUSH) Problems Active Problems Problem Classification Problem Date Documented Date Episodic/Chronic Aortic; peripheral; and visceral artery aneurysms (1 source) Thoracic aortic ectasia; Translations: [Thoracic aortic ectasia] Onset: 04-22-2024 Chronic Cardiac dysrhythmias (20 sources) Atrial fibrillation with rapid ventricular response; Translations: [Unspecified atrial fibrillation] Onset: 01-30-2023 01-30-2023 Chronic Chronic kidney disease (20 sources) Chronic kidney disease stage 3; Translations: [Stage 3 chronic kidney disease, unspecified whether stage 3a or 3b CKD (HCC)] Onset: 01-10-2023 01-12-2023 Chronic Chronic kidney disease (2 sources) Chronic kidney disease; Translations: [Hypertensive kidney disease with stage 3a chronic kidney disease (HCC)] Onset: 01-28-2023 Conduction disorders (2 sources) Patient encounter status; Translations: [Encounter for adjustment and management of automatic implantable cardiac defibrillator] Onset: 08-05-2024 08-05-2024 Chronic Congestive heart failure; nonhypertensive (20 sources) Congestive heart failure; Translations: [Unspecified systolic (congestive) heart failure] Onset: 01-26-2023 Resolved: 01-31-2023 09-30-2022 Chronic Congestive heart failure; nonhypertensive (1 source) Congestive heart failure; nonhypertensive Coronary atherosclerosis and other heart disease (20 sources) Coronary arteriosclerosis; Translations: [Atherosclerotic heart disease of [place] coronary artery without angina pectoris] Onset: 11-07-2022 10-11-2022 Chronic Comment on above: Per cath done [address] Ibarra [facility] Prox LAD-ALLEN [facility]her Rx 3.5 x 18 mm, Prox Ramus-ALLEN [facility]her Rx 3 x 13 mm and mid Ramus-ALLEN Cypher Rx 3 x 13mm (07/06/08): Staged PCI-distal RCA into PDA-ALLEN Cypher Rx 2.75 x 33 mm, PTCA to Ostial right posterior lateral branch (08/05/08) Coronary atherosclerosis and other heart disease (4 sources) Past history of procedure; Translations: [Coronary angioplasty status] Onset: 03-22-2023 01-10-2023 Episodic Diabetes mellitus with complications (20 sources) Chronic kidney disease stage 3 due to type 2 diabetes mellitus; Translations: [Type 2 diabetes mellitus with diabetic chronic kidney disease] Onset: 01-10-2023 10-11-2022 Chronic Diabetes mellitus without complication (20 sources) Diabetes mellitus; Translations: [Type 2 diabetes mellitus without complications] Onset: 01-10-2023 10-11-2022 Chronic Diabetes mellitus without complication (1 source) Diabetes mellitus without complication; Translations: [Type 2 diabetes mellitus with stage 3b chronic kidney disease, with long-term current use of insulin (HCC)] Onset: 03-01-2023 Disorders of lipid metabolism (20 sources) Dyslipidemia; Translations: [Hyperlipidemia, unspecified] Onset: 01-26-2023 10-11-2022 Chronic Essential hypertension (20 sources) Essential hypertension; Translations: [Essential (primary) hypertension] Onset: 01-10-2023 09-30-2022 Chronic Gout and other crystal arthropathies (20 sources) Gout; Translations: [Gout, unspecified] Onset: 01-26-2023 01-28-2023 Chronic Heart valve disorders (20 sources) Mitral valve regurgitation; Translations: [Nonrheumatic mitral (valve) insufficiency] Onset: 01-26-2023 01-28-2023 Chronic Hypertension with complications and secondary hypertension (20 sources) Chronic kidney disease stage 3 due to hypertension; Translations: [Hypertensive chronic kidney disease with stage 1 through stage 4 chronic kidney disease, or unspecified chronic kidney disease] Onset: 01-10-2023 01-10-2023 Chronic Nonspecific chest pain (2 sources) Chest pain; Translations: [Chest pain, unspecified] 01-12-2023 Episodic Other aftercare (1 source) Surgical follow-up; Translations: [Encounter for follow-up examination after completed treatment for conditions other than malignant neoplasm] 02-01-2023 Episodic Other and ill-defined heart disease (2 sources) Heart disease; Translations: [Heart disease, unspecified] 01-10-2023 Chronic Other endocrine disorders (18 sources) Hyperparathyroidism; Translations: [Hyperparathyroidism, unspecified] Onset: 08-04-2023 08-04-2023 Chronic Residual codes; unclassified (20 sources) Obstructive sleep apnea syndrome; Translations: [Obstructive sleep apnea (adult) (pediatric)] Onset: 01-26-2023 01-28-2023 Chronic Thyroid disorders (20 sources) Hypothyroidism; Translations: [Hypothyroidism, unspecified] Onset: 01-26-2023 01-12-2023 Chronic Unclassified (5 sources) I50.22 - Chronic systolic (congestive) heart failure,I25.5 - Ischemic cardiomyopathy Unclassified (1 source) Other supraventricular tachycardia; Translations: [Other supraventricular tachycardia] Onset: 07-22-2024 Past or Other Problems Problem Classification Problem Date Documented Date Episodic/Chronic Acute posthemorrhagic anemia (20 sources) Acute posthemorrhagic anemia; Translations: [Acute posthemorrhagic anemia] Onset: 01-28-2023 01-28-2023 Episodic Administrative/social admission (20 sources) Discharge status; Translations: [Encounter for administrative examinations, unspecified] Onset: 01-24-2023 01-28-2023 Episodic Coagulation and hemorrhagic disorders (20 sources) Thrombocytopenic disorder; Translations: [Thrombocytopenia, unspecified] Onset: 01-28-2023 Resolved: 01-30-2023 01-30-2023 Chronic Fluid and electrolyte disorders (20 sources) Hypervolemia; Translations: [Fluid overload, unspecified] Onset: 01-28-2023 Resolved: 01-30-2023 01-28-2023 Episodic Other aftercare (20 sources) Insulin dose changed; 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] Onset: 01-30-2023 01-31-2023 Episodic Other aftercare (1 source) 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; Translations: [Type 2 diabetes mellitus with stage 3b chronic kidney disease, with long-term current use of insulin (HCC)] Onset: 03-01-2023 Episodic Other nervous system disorders (20 sources) Postoperative pain ; Translations: [Other acute postprocedural pain] Onset: 01-30-2023 01-30-2023 Episodic Other screening for suspected conditions (not mental disorders or infectious disease) (20 sources) Patient encounter status; Translations: [Encounter for screening for malignant neoplasm of colon] Onset: 01-24-2023 08-04-2023 Episodic Residual codes; unclassified (20 sources) Finding related to care delivery; Translations: [Other specified personal risk factors, not elsewhere classified] Onset: 02-01-2023 02-01-2023 Episodic Results Test Name Value Interpretation Reference Range Facility Absolute lymphocyte countOrd ered By: Piedad Han on 10-23-2024 Lymphocytes Auto (Unsp spec) [#/Vol] 1.04 10*3/uL 0.83-4.51 [facility] Absolute neutrophil countOrd ered By: Piedad Han on 10-23-2024 Neutrophils (Bld) [#/Vol] 4.6 10*3/uL 2.0-7.7 [facility] Anion gap in Serum or Plasma Ordered By: Piedad Han on 10-23-2024 Anion gap [Moles/Vol] 12 mmol/L 06-27 [facility] Automated lymphocyte count a s percentage of total leukocytesOrdered By: Piedad Han on 10-23-2024 Lymphocytes/100 WBC Auto (Unsp spec) 15.9 % Low [facility] BUN/creatinine ratioOrdered By: Piedad Han on 10-23-2024 Urea nitrogen/Creatinine [Mass ratio] 16.9 mg/mg 12-02 [facility] Basophil percentageOrdered B y: Piedad aHn on 10-23-2024 Basophils/100 WBC (Bld) 0.8 % 0-1 [facility] Bilirubin Test strip Ql (U)O rdered By: Piedad Han on 10-23-2024 Bilirubin Ql (U) Negative Negative [facility] Bilirubin, totalOrdered By: Piedad Han on 10-23-2024 Bilirubin [Mass/Vol] 0.26 mg/dL 0.00-1.30 [facility] CBC W/Diff, Automatedon 10-14 Absolute Lymph 1.04 X10 3/uL Normal 0.83-4.51 [facility] Comment on above: Order Comment: Order Date: 08/08/24Order Info: 018- - CBCD Performed By: #### L 400.0001, L501.0900 #### [facility] [address] [place], [address] Absolute Neut 4.6 X10 3/uL Normal 2.0-7.7 [facility] Comment on above: Order Comment: Order Date: 08/08/24Order Info: 018- - CBCD Performed By: #### L 400.0001, L501.0900 #### [facility] [address] [place], [address] Basophils/100 WBC (Bld) 0.8 % Normal 0-1 [facility] Comment on above: Order Comment: Order Date: 08/08/24Order Info: [id number]- - CBCD Performed By: #### L 400.0001, L501.0900 #### [facility] [address] [place], [address] Eosinophils/100 WBC (Bld) 4.6 % Normal 0-5 [facility] Comment on above: Order Comment: Order Date: 08/08/24Order Info: [id number] - CBCD Performed By: #### L 400.0001, L501.0900 #### [facility] [address] [place], [address] Erythrocyte distribution width (RBC) [Ratio] 13.6 % Normal 11.6-14.6 [facility] Comment on above: Order Comment: Order Date: 08/08/24Order Info: 018- - CBCD Performed By: #### L 400.0001, L501.0900 #### [facility] [address] [place], [address] Hematocrit (Bld) [Volume fraction] 40.4 % Normal 40-54 [facility] Comment on above: Order Comment: Order Date: 08/08/24Order Info: 018- - CBCD Performed By: #### L 400.0001, L501.0900 #### [facility] [address] [place], [address] Hemoglobin (Bld) [Mass/Vol] 12.9 g/dL Low 13.0-16.5 [facility] Comment on above: Order Comment: Order Date: 08/08/24Order Info: 018- - CBCD Performed By: #### L 400.0001, L501.0900 #### [facility] [address] [place], [address] IG% 0.500 Normal 0.0-0.9 [facility] Comment on above: Order Comment: Order Date: 08/08/24Order Info: [id number] - CBCD Result Comment: IG% - Immature Granulocytes (promyelocytes, myelocytes and metamyelocytes) > 1% indicates that a LEFT SHIFT is Present. Performed By: #### L 400.0001, L501.0900 #### [facility] [address] [place], [address] Lymphocytes/100 WBC (Bld) 15.9 % Low 19-41 [facility] Comment on above: Order Comment: Order Date: 08/08/24Order Info: 4-1 - CBCD Performed By: #### L 400.0001, L501.0900 #### [facility] [address] [place], [address] MCH (RBC) [Entitic mass] 30.7 pg Normal 27.0-32.0 [facility] Comment on above: Order Comment: Order Date: 08/08/24Order Info: [id number] - CBCD Performed By: #### L 400.0001, L501.0900 #### [facility] [address] [place], [address] MCHC (RBC) [Mass/Vol] 31.9 g/dL Low 32-36 [facility] Comment on above: Order Comment: Order Date: 08/08/24Order Info: [id number] - CBCD Performed By: #### L 400.0001, L501.0900 #### [facility] [address] [place], [address] MCV (RBC) [Entitic vol] 96.2 fL High 80-94 [facility] Comment on above: Order Comment: Order Date: 08/08/24Order Info: [id number] - CBCD Performed By: #### L 400.0001, L501.0900 #### [facility] [address] [place], [address] Monocytes/100 WBC (Bld) 8.6 % Normal 0-10 [facility] Comment on above: Order Comment: Order Date: 08/08/24Order Info: [id number] - CBCD Performed By: #### L 400.0001, L501.0900 #### [facility] [address] [place], [address] Neutrophils/100 WBC (Bld) 69.6 % Normal 47-70 [facility] Comment on above: Order Comment: Order Date: 08/08/24Order Info: [id number] - CBCD Performed By: #### L 400.0001, L501.0900 #### [facility] [address] [place], [address] Nucleated RBC (Bld) [#/Vol] 0 10*3/uL Normal 0-5 [facility] Comment on above: Order Comment: Order Date: 08/08/24Order Info: 018- - CBCD Performed By: #### L 400.0001, L501.0900 #### [facility] [address] [place], [address] Platelet mean volume (Bld) [Entitic vol] 9.1 fL Normal 6.2-12.0 [facility] Comment on above: Order Comment: Order Date: 08/08/24Order Info: 018- - CBCD Performed By: #### L 400.0001, L501.0900 #### [facility] [address] [place], [address] Platelets (Bld) [#/Vol] 204 10*3/uL Normal 150-450 [facility] Comment on above: Order Comment: Order Date: 08/08/24Order Info: [id number] - CBCD Performed By: #### L 400.0001, L501.0900 #### [facility] [address] [place], [address] RBC (Bld) [#/Vol] 4.20 10*6/uL Low 4.6-6.2 [facility] Comment on above: Order Comment: Order Date: 08/08/24Order Info: [id number] - CBCD Performed By: #### L 400.0001, L501.0900 #### [facility] [address] [place], [address] RDW SD 47.9 fl High 35.1-43.9 [facility] Comment on above: Order Comment: Order Date: 08/08/24Order Info: 183- - CBCD Performed By: #### L 400.0001, L501.0900 #### [facility] [address] [place], [address] WBC (Bld) [#/Vol] 6.5 10*3/uL Normal 4.4-11.0 [facility] Comment on above: Order Comment: Order Date: 08/08/24Order Info: 183- - CBCD Performed By: #### L 400.0001, L501.0900 #### [facility] [address] [place], [address] Calculated very low density lipoprotein (VLDL) cholesterol measurementOrdered By: Piedad Han on 10-23-2024 Calculated very low density lipoprotein (VLDL) cholesterol measurement 21 mg/dL 5-40 [facility] Carbon dioxide, total [Moles /volume] in Central venous bloodOrdered By: Piedad Han on 10-23-2024 CO2 [Moles/Vol] 23.2 mmol/L 21.0-32.0 [facility] Chloride assayOrdered By: May Han on 10-23-2024 Chloride [Moles/Vol] 101 mmol/L 98-108 [facility] Comprehensive Metabolic Prof ilon 10-23-2024 Albumin [Mass/Vol] 3.8 g/dL Normal 3.4-4.8 [facility] Comment on above: Order Comment: Order Date: 08/08/24Order Info: [id number] - CMPOrder Info: [id number] - LIPIDOrder Info: [id number] - URICOrder Info: [id number] - MGOrder Info: [id number] - TSHOrder Info: [id number] - T4F Performed By: #### L 400.0001, L501.0900 #### [facility] [address] [place], [address] Albumin/Globulin [Mass ratio] 1.3 {ratio} Normal 0.9-2.4 [facility] Comment on above: Order Comment: Order Date: 08/08/24Order Info: [id number] - CMPOrder Info: [id number] - LIPIDOrder Info: [id number] - URICOrder Info: [id number] - MGOrder Info: [id number] - TSHOrder Info: [id number] - T4F Performed By: #### L 400.0001, L501.0900 #### [facility] [address] [place], [address] ALK PHOS 109 U/L Normal 40-129 [facility] Comment on above: Order Comment: Order Date: 08/08/24Order Info: [id number] - CMPOrder Info: [id number] - LIPIDOrder Info: [id number] - URICOrder Info: [id number] - MGOrder Info: [id number] - TSHOrder Info: [id number] - T4F Performed By: #### L 400.0001, L501.0900 #### [facility] [address] [place], [address] ALT [Catalytic activity/Vol] 54 U/L High <=46 [facility] Comment on above: Order Comment: Order Date: 08/08/24Order Info: [id number] - CMPOrder Info: [id number] - LIPIDOrder Info: [id number] - URICOrder Info: [id number] - MGOrder Info: [id number] - TSHOrder Info: [id number] - T4F Performed By: #### L 400.0001, L501.0900 #### [facility] [address] [place], [address] AST [Catalytic activity/Vol] 39 U/L High <=37 [facility] Comment on above: Order Comment: Order Date: 08/08/24Order Info: [id number] - CMPOrder Info: [id number] - LIPIDOrder Info: [id number] - URICOrder Info: [id number] - MGOrder Info: [id number] - TSHOrder Info: [id number] - T4F Performed By: #### L 400.0001, L501.0900 #### [facility] [address] [place], [address] Bilirubin [Mass/Vol] 0.26 mg/dL Normal 0.00-1.30 [facility] Comment on above: Order Comment: Order Date: 08/08/24Order Info: [id number] - CMPOrder Info: [id number] - LIPIDOrder Info: [id number] - URICOrder Info: [id number] - MGOrder Info: [id number] - TSHOrder Info: [id number] - T4F Performed By: #### L 400.0001, L501.0900 #### [facility] [address] [place], [address] BUN/CRE 16.9 RATIO Normal 10-20 [facility] Comment on above: Order Comment: Order Date: 08/08/24Order Info: [id number] - CMPOrder Info: [id number] - LIPIDOrder Info: [id number] - URICOrder Info: [id number] - MGOrder Info: [id number] - TSHOrder Info: [id number] - T4F Performed By: #### L 400.0001, L501.0900 #### [facility] [address] [place], [address] Calcium [Mass/Vol] 9.3 mg/dL Normal 7.6-11.0 [facility] Comment on above: Order Comment: Order Date: 08/08/24Order Info: [id number] - CMPOrder Info: [id number] - LIPIDOrder Info: [id number] - URICOrder Info: [id number] - MGOrder Info: [id number] - TSHOrder Info: [id number] - T4F Performed By: #### L 400.0001, L501.0900 #### [facility] [address] [place], [address] Chloride [Moles/Vol] 101 mmol/L Normal 98-108 [facility] Comment on above: Order Comment: Order Date: 06/26/25Order Info: [id number] - CMPOrder Info: [id number] - LIPIDOrder Info: [id number] - URICOrder Info: [id number] - MGOrder Info: [id number] - TSHOrder Info: [id number] - T4F Performed By: #### L 400.0001, L501.0900 #### [facility] [address] [place], [address] CO2 [Moles/Vol] 23.2 mmol/L Normal 21.0-32.0 [facility] Comment on above: Order Comment: Order Date: 08/08/24Order Info: [id number] - CMPOrder Info: [id number] - LIPIDOrder Info: [id number] - URICOrder Info: [id number] - MGOrder Info: [id number] - TSHOrder Info: [id number] - T4F Performed By: #### L 400.0001, L501.0900 #### [facility] [address] [place], [address] Creatinine [Mass/Vol] 2.81 mg/dL High 0.70-1.20 [facility] Comment on above: Order Comment: Order Date: 08/08/24Order Info: [id number] - CMPOrder Info: [id number] - LIPIDOrder Info: [id number] - URICOrder Info: [id number] - MGOrder Info: [id number] - TSHOrder Info: [id number] - T4F Performed By: #### L 400.0001, L501.0900 #### [facility] [address] [place], [address] GAP 12 Normal 5-15 [facility] Comment on above: Order Comment: Order Date: 08/08/24Order Info: [id number] - CMPOrder Info: [id number] - LIPIDOrder Info: [id number] - URICOrder Info: [id number] - MGOrder Info: [id number] - TSHOrder Info: [id number] - T4F Performed By: #### L 400.0001, L501.0900 #### [facility] [address] [place], [address] GFR/1.73 sq M.predicted among non-blacks MDRD (S/P/Bld) [Vol rate/Area] 24 mL/min/{1.73_m2} Low >60 [facility] Comment on above: Order Comment: Order Date: 08/08/24Order Info: [id number] - CMPOrder Info: [id number] - LIPIDOrder Info: [id number] - URICOrder Info: [id number] - MGOrder Info: 6-3 - TSHOrder Info: [id number] - T4F Result Comment: mL/m in/1.73m2 CKD-EPI Creatinine Equation (2020) Performed By: #### L 400.0001, L501.0900 #### [facility] [address] [place], [address] Globulin (S) [Mass/Vol] 2.9 g/dL Normal 2.2-4.2 [facility] Comment on above: Order Comment: Order Date: 08/08/24Order Info: [id number] - CMPOrder Info: [id number] - LIPIDOrder Info: [id number] - URICOrder Info: [id number] - MGOrder Info: 6-3 - TSHOrder Info: [id number] - T4F Performed By: #### L 400.0001, L501.0900 #### [facility] [address] [place], [address] Glucose [Mass/Vol] 136 mg/dL High 70-99 [facility] Comment on above: Order Comment: Order Date: 08/08/24Order Info: [id number] - CMPOrder Info: [id number] - LIPIDOrder Info: [id number] - URICOrder Info: [id number] - MGOrder Info: [id number] - TSHOrder Info: [id number] - T4F Performed By: #### L 400.0001, L501.0900 #### [facility] [address] [place], [address] Potassium [Moles/Vol] 4.6 mmol/L Normal 3.3-5.1 [facility] Comment on above: Order Comment: Order Date: 08/08/24Order Info: [id number] - CMPOrder Info: [id number] - LIPIDOrder Info: [id number] - URICOrder Info: [id number] - MGOrder Info: [id number] - TSHOrder Info: [id number] - T4F Performed By: #### L 400.0001, L501.0900 #### [facility] [address] [place], [address] Sodium [Moles/Vol] 136 mmol/L Normal 133-145 [facility] Comment on above: Order Comment: Order Date: 08/08/24Order Info: [id number] - CMPOrder Info: [id number] - LIPIDOrder Info: [id number] - URICOrder Info: [id number] - MGOrder Info: [id number] - TSHOrder Info: [id number] - T4F Performed By: #### L 400.0001, L501.0900 #### [facility] [address] [place], [address] T PROT 6.6 g/dL Normal 5.9-8.4 [facility] Comment on above: Order Comment: Order Date: 08/08/24Order Info: [id number] - CMPOrder Info: [id number] - LIPIDOrder Info: [id number] - URICOrder Info: [id number] - MGOrder Info: [id number] - TSHOrder Info: [id number] - T4F Performed By: #### L 400.0001, L501.0900 #### [facility] [address] [place], [address] Urea nitrogen [Mass/Vol] 48 mg/dL High 4-19 [facility] Comment on above: Order Comment: Order Date: 08/08/24Order Info: [id number] - CMPOrder Info: [id number] - LIPIDOrder Info: [id number] - URICOrder Info: [id number] - MGOrder Info: [id number] - TSHOrder Info: [id number] - T4F Performed By: #### L 400.0001, L501.0900 #### [facility] [address] [place], [address] Eosinophil percentageOrdered By: Piedad Han on 10-23-2024 Eosinophils/100 WBC (Bld) 4.6 % 0-5 [facility] Erythrocyte distribution wid th ratioOrdered By: Piedad Han on 10-23-2024 Erythrocyte distribution width (RBC) [Ratio] 13.6 % 11.6-14.6 [facility] Erythrocyte distribution wid th standard deviationOrdered By: Piedad Han on 10-23-2024 Erythrocyte distribution width (RBC) [Ratio] 47.9 fl High 35.1-43.9 [facility] Glomerular filtration rate ( GFR) estimation/1.73 sq m using serum, plasma, or whole bOrdered By: Piedad Han on 10-23-2024 GFR/1.73 sq M.predicted among non-blacks MDRD (S/P/Bld) [Vol rate/Area] 24 mL/min/{1.73_m2} Low >60 [facility] Comment on above: mL/min/1.73m2 CKD-EP I Creatinine Equation (2020) Hematocrit Auto (Bld) [Volum e fraction]Ordered By: Piedad Han on 10-23-2024 Hematocrit (Bld) [Volume fraction] 40.4 % 40-54 [facility] Hemoglobin A1con 10-23-2024 HbA1c (Bld) [Mass fraction] 6.4 % High <=5.6 [facility] Comment on above: Order Comment: Order Date: 08/08/24Order Info: [id number] - A1C Result Comment: Norm al < 5.7 % Prediabetic 5.7 - 6.4 % Diabetic >or= 6.5 % Please note range changes. Performed By: #### L 400.0001, L501.0900 #### [facility] [address] [place], [address] Hemoglobin A1c percentageOrd ered By: Piedad Han on 10-23-2024 HbA1c (Bld) [Mass fraction] 6.4 % High <5.7 [facility] Comment on above: Normal < 5.7 % Predi abetic 5.7 - 6.4 % Diabetic >or= 6.5 % Please note range changes. Hemoglobin measurementOrdere d By: Piedad Han on 10-23-2024 Hemoglobin (Bld) [Mass/Vol] 12.9 g/dL Low 13.0-16.5 [facility] Immature granulocytes/100 WB C Auto (Bld)Ordered By: Piedad Han on 10-23-2024 Immature granulocytes/100 WBC (Bld) 0.500 % 0.0-0.9 [facility] Comment on above: IG% - Immature Granu locytes (promyelocytes, myelocytes and metamyelocytes) > 1% indicates that a LEFT SHIFT is Present. Ketones Test strip Ql (U)Ord ered By: Piedad Han on 10-23-2024 Ketones Ql (U) Negative Negative [facility] LDL calc ser/plasOrdered By: Piedad Han on 10-23-2024 Cholesterol in LDL [Mass/Vol] 59 mg/dL [facility] Comment on above: Iwgqlyzgyq=265-811 m g/dL & Higher Zyqf=091 mg/dL or greaterFriedwald Equation for LDL-C Laboratory - Chemistry and C hemistry - challengeOrdered By: Piedad Han on 10-23-2024 AST [Catalytic activity/Vol] 39 U/L High <38 [facility] Lipid Profileon 10-23-2024 CHOL:HDL 2.70 Normal [facility] Comment on above: Order Comment: Order Date: 08/08/24Order Info: [id number] - CMPOrder Info: [id number] - LIPIDOrder Info: [id number] - URICOrder Info: [id number] - MGOrder Info: [id number] - TSHOrder Info: [id number] - T4F Performed By: #### L 400.0001, L501.0900 #### [facility] [address] [place], [place], [address] Cholesterol [Mass/Vol] 127 mg/dL Normal <=200 [facility] Comment on above: Order Comment: Order Date: 08/08/24Order Info: [id number] - CMPOrder Info: [id number] - LIPIDOrder Info: [id number] - URICOrder Info: [id number] - MGOrder Info: 3 - TSHOrder Info: [id number] - T4F Result Comment: Chol esterol level, Desirable <200 mg/dL Borderline high cholesterol 200-239 mg/dL High cholesterol >=240 mg/dL Recommendations of the NCEP Adult Treatment Panel for the following risk-cutoff thresholds for the [place] population. Performed By: #### L 400.0001, L501.0900 #### [facility] [address] [place], [address] Cholesterol in HDL [Mass/Vol] 47 mg/dL Normal [facility] Comment on above: Order Comment: Order Date: 08/08/24Order Info: 86-1 - CMPOrder Info: [id number] - LIPIDOrder Info: [id number] - URICOrder Info: [id number] - MGOrder Info: 3 - TSHOrder Info: [id number] T4F Result Comment: [place] onal Cholesterol Education Program (NCEP) guidelines: <40 mg/dL: Low HDL-cholesterol (major risk factor for CHD) >= 60 mg/dL: High HDL-cholesterol (negative risk factor for CHD) HDL-cholesterol is affected by a number of factors, e.g. smoking, exercise, hormones, sex and age. Performed By: #### L 400.0001, L5.0900 #### [facility] [address] [place], [address] Cholesterol in LDL [Mass/Vol] 59 mg/dL Normal [facility] Comment on above: Order Comment: Order Date: 08/08/24Order Info: [id number] - CMPOrder Info: [id number] - LIPIDOrder Info: [id number] - URICOrder Info: [id number] - MGOrder Info: 3 - TSHOrder Info: [id number] - T4F Result Comment: Bord tymqda=020-686 mg/dL Higher Mjhk=832 mg/dL or greater Friedwald Equation for LDL-C Performed By: #### L 400.0001, L501.0900 #### [facility] [address] [place], [address] Cholesterol in VLDL [Mass/Vol] 21 mg/dL Normal 5-40 [facility] Comment on above: Order Comment: Order Date: 08/08/24Order Info: [id number] - CMPOrder Info: [id number] - LIPIDOrder Info: [id number] - URICOrder Info: [id number] - MGOrder Info: [id number] - TSHOrder Info: [id number] - T4F Performed By: #### L 400.0001, L501.0900 #### [facility] [facility] [address] [place], [address] Triglyceride [Mass/Vol] 104 mg/dL Normal [facility] Comment on above: Order Comment: Order Date: 08/08/24Order Info: [id number] - CMPOrder Info: [id number] - LIPIDOrder Info: [id number] - URICOrder Info: [id number] - MGOrder Info: [id number] - TSHOrder Info: [id number] - T4F Result Comment: The drugs N-Acetylcysteine and Metamizole may falsely depress this assay. Normal range: <150 mg/dL Borderline High: 150-199 mg/dL High: 200-499 mg/dL Very High: >500 mg/dL Performed By: #### L 400.0001, L501.0900 #### [facility] [address] [place], [address] MCV (mean corpuscular volume ) determinationOrdered By: Piedad Han on 10-23-2024 MCV (RBC) [Entitic vol] 96.2 fL High 80-94 [facility] Magnesiumon 10-23-2024 Magnesium [Mass/Vol] 2.4 mg/dL High 1.5-2.2 [facility] Comment on above: Order Comment: CLEAN CATCH Performed By: #### L 400.0001 #### [facility] [address] [place], [address] Magnesium measurement (mass/ volume)Ordered By: Piedad Han on 10-23-2024 Magnesium (Unsp spec) [Mass/Vol] 2.4 mg/dL High 1.5-2.2 [facility] Mean corpuscular hemoglobin (MCH) determinationOrdered By: Piedad Han on 10-23-2024 MCH (RBC) [Entitic mass] 30.7 pg 27.0-32.0 [facility] Mean corpuscular hemoglobin concentration (MCHC) determinationOrdered By: Piedad Han on 10-23-2024 MCHC (RBC) [Mass/Vol] 31.9 g/dL Low 32-36 [facility] Mean platelet volume determi nationOrdered By: Piedad aHn on 10-23-2024 Platelet mean volume (Bld) [Entitic vol] 9.1 fL 6.2-12.0 [facility] Microalbumin,Random Urineon 10-23-2024 MICROALBUMIN,UR 1119.0 mg/L Normal <20 mg/L [facility] Comment on above: Order Comment: Order Date: 08/08/24Order Info: [id number] - MIALB Performed By: #### L 400.0001, L501.0900 #### [facility] [address] [place] [address]. [place], [address] Microscopic analysis of urin e for red blood cells (RBC)Ordered By: Piedad Han on 10-23-2024 Microscopic analysis of urine for red blood cells (RBC) 0-5 SEEN /hpf 0-5 [facility] Monocyte percentageOrdered B y: Piedad Han on 10-23-2024 Monocytes/100 WBC (Bld) 8.6 % 0-10 [facility] Mucus LM Ql (Urine sed)Order ed By: Piedad Han on 10-23-2024 Mucus Ql (Urine sed) 0 SEEN /hpf [facility] Neutrophil percentageOrdered By: Piedad Han on 10-23-2024 Neutrophils/100 WBC (Bld) 69.6 % 47-70 [facility] Nitrite Test strip Ql (U)Ord ered By: Piedad Han on 10-23-2024 Nitrite Ql (U) Negative Negative [facility] Nucleated red blood cell per centageOrdered By: Piedad Han on 10-23-2024 Nucleated RBC/100 WBC (Bld) [Ratio] 0 % 0-5 [facility] Platelet countOrdered By: May Han on 10-23-2024 Platelets (Bld) [#/Vol] 204 10*3/uL 150-450 [facility] Potassium measurement (mass/ volume)Ordered By: Piedad Han on 10-23-2024 Potassium (Unsp spec) [Mass/Vol] 4.6 mmol/L 3.3-5.1 [facility] Protein Test strip Ql (U)Ord ered By: Piedad Han on 10-23-2024 Protein Ql (U) 500 mg/dl High Negative [facility] RBC Auto (Bld) [#/Vol]Ordere d By: Piedad Han on 10-23-2024 RBC (Bld) [#/Vol] 4.20 10*6/uL Low 4.6-6.2 [facility] Screening total cholesterol/ high density lipoprotein (HDL) cholesterol ratioOrdered By: Piedad Han on 10-23-2024 Cholesterol.total/Choles terol in HDL [Mass ratio] 2.70 {ratio} [facility] Serum creatinine measurement (mass/volume)Ordered By: Piedad Han on 10-23-2024 Creatinine [Mass/Vol] 2.81 mg/dL High 0.70-1.20 [facility] Serum globulin measurementOr dered By: Piedad Han on 10-23-2024 Globulin (S) [Mass/Vol] 2.9 g/dL 2.2-4.2 [facility] Serum glucose measurement (m ass/volume)Ordered By: Piedad Han on 10-23-2024 Glucose [Mass/Vol] 136 mg/dL High 70-99 [facility] Serum or plasma alanine menezes otransferase (ALT) measurementOrdered By: Piedad Han on 10-23-2024 ALT [Catalytic activity/Vol] 54 U/L High <47 [facility] Serum or plasma albumin priyanka urement (mass/volume)Ordered By: Piedad Han on 10-23-2024 Albumin [Mass/Vol] 3.8 g/dL 3.4-4.8 [facility] Serum or plasma albumin/glob ulin mass ratioOrdered By: Piedad Han on 10-23-2024 Albumin/Globulin [Mass ratio] 1.3 {ratio} 0.9-2.4 [facility] Serum or plasma alkaline enio sphatase measurementOrdered By: Piedad Han on 10-23-2024 ALP [Catalytic activity/Vol] 109 U/L 40-129 [facility] Serum or plasma calcium priyanka urement (mass/volume)Ordered By: Piedad Han on 10-23-2024 Calcium [Mass/Vol] 9.3 mg/dL 7.6-11.0 [facility] Serum or plasma cholesterol in HDL measurement (mass/volume)Ordered By: Piedad Han on 10-23-2024 Cholesterol in HDL [Mass/Vol] 47 mg/dL >40 [facility] Comment on above: National Cholesterol Education Program (NCEP) guidelines:<40 mg/dL: Low HDL-cholesterol (major risk factor for CHD)>= 60 mg/dL: High HDL-cholesterol (negative risk factor for CHD)HDL-cholesterol is affected by a number of factors, e.g. smoking, exercise, hormones, sex and age. Serum or plasma cholesterol measurement (mass/volume)Ordered By: Piedad Han on 10-23-2024 Cholesterol [Mass/Vol] 127 mg/dL <201 [facility] Comment on above: Cholesterol level, D esirable <200 mg/dLBorderline high cholesterol 200-239 mg/dLHigh cholesterol >=240 mg/dLRecommendations of the NCEP Adult Treatment Panel for the following risk-cutoff thresholds for the [place] population. Serum or plasma urea nitroge n measurement (mass/volume)Ordered By: Piedad Han on 10-23-2024 Urea nitrogen [Mass/Vol] 48 mg/dL High 4-19 [facility] Serum or plasma uric acid me asurement (mass/volume)Ordered By: Piedad Han on 10-23-2024 Urate [Mass/Vol] 3.8 mg/dL 3.5-7.2 [facility] Comment on above: The drugs N-Acetylcy steine and Metamizole may falsely depress this assay. Sodium levelOrdered By: Piedad Han on 10-23-2024 Sodium [Moles/Vol] 136 mmol/L 133-145 [facility] Squamous epithelial cells de tection in urine sediment by light microscopyOrdered By: Piedad Han on 10-23-2024 Epithelial cells.squamous LM Ql (Urine sed) 0 SEEN /hpf 0-5 [facility] T4 Free Directon 10-23-2024 T4 FREE DIRECT 1.30 ng/dL Normal 0.76-1.46 [facility] Comment on above: Order Comment: CLEAN CATCH Performed By: #### L 400.0001 #### [facility] [address] [place], [place], [address] T4 freeOrdered By: Piedad eubankser on 10-23-2024 Free T4 [Mass/Vol] 1.30 ng/dL 0.76-1.46 [facility] TSH DL <= 0.005 mIU/L QnOrde red By: Piedad Han on 10-23-2024 TSH Qn 1.020 uIU/mL 0.300-4.20 0 [facility] Thyroid Stim Hormone (TSH)on 10-23-2024 TSH 1.020 uIU/mL Normal 0.300-4.20 0 [facility] Comment on above: Order Comment: CLEAN CATCH Performed By: #### L 400.0001 #### [facility] [address] [place], [place], [address] Total proteinOrdered By: Zhang Han on 10-23-2024 Protein [Mass/Vol] 6.6 g/dL 5.9-8.4 [facility] Triglycerides measurementOrd ered By: Piedad Han on 10-23-2024 Triglyceride [Mass/Vol] 104 mg/dL <199 [facility] Comment on above: The drugs N-Acetylcy steine and Metamizole may falsely depress this assay. Normal range: <150 mg/dLBorderline High: 150-199 mg/dLHigh: 200-499 mg/dLVery High: >500 mg/dL Uric Acidon 10-23-2024 URIC 3.8 mg/dL Normal 3.5-7.2 [facility] Comment on above: Order Comment: Order Date: 08/08/24Order Info: [id number] - CMPOrder Info: [id number] - LIPIDOrder Info: [id number] - URICOrder Info: [id number] - MGOrder Info: [id number] - TSHOrder Info: [id number] - T4F Result Comment: The drugs N-Acetylcysteine and Metamizole may falsely depress this assay. Performed By: #### L 400.0001, L501.0900 #### [facility] [address] [place], [address] Urinalysis, Completeon 10-23 RBC 0-5 SEEN Normal 0-5 [facility] Comment on above: Order Comment: CLEAN CATCH Performed By: #### L 400.0001 #### [facility] [address] [place], [address] BACTERIA 0 SEEN Normal None Seen [facility] Comment on above: Order Comment: CLEAN CATCH Performed By: #### L 400.0001 #### [facility] [address] [place], [address] EPI,SQUAMOUS 0 SEEN Normal 0-5 [facility] Comment on above: Order Comment: CLEAN CATCH Performed By: #### L 400.0001 #### [facility] [address] [place], [address] Mucus Ql (Urine sed) 0 SEEN Normal [facility] Comment on above: Order Comment: CLEAN CATCH Performed By: #### L 400.0001 #### [facility] [address] [place], [address] WBC 0 SEEN Normal 0-5 [facility] Comment on above: Order Comment: CLEAN CATCH Performed By: #### L 400.0001 #### [facility] [address] [place], [address] Urine albumin measurement wi detection limit of 20 mg/L or less (mass/volume)Ordered By: Piedad Han on 10-23-2024 Albumin DL <= 20 mg/L (U) [Mass/Vol] 1119.0 mg/L <20 mg/L [facility] Urine clarityOrdered By: Zhang Han on 10-23-2024 Clarity (U) Clear Clear [facility] Urine color determinationOrd ered By: Piedad Han on 10-23-2024 Color (U) Straw Yellow [facility] Urine glucose detectionOrder ed By: Piedad Han on 10-23-2024 Glucose Ql (U) 1000 mg/dl High Normal [facility] Urine leukocyte esterase det ection by dipstickOrdered By: Piedad Han on 10-23-2024 Leukocyte esterase Test strip Ql (U) Negative Negative [facility] Urine pHOrdered By: Piedad ring on 10-23-2024 pH (U) 6.0 [pH] 5.0 - 8.0 [facility] Urine sediment bacteria coun t by microscopy (number/high power field)Ordered By: Piedad Han on 10-23-2024 Bacteria LM.HPF (Urine sed) [#/Area] 0 /[HPF] None Seen [facility] Urine specific gravity measu rementOrdered By: Piedad Han on 10-23-2024 Specific gravity (U) [Rel density] 1.010 1.002-1.03 0 [facility] Urine urobilinogen measureme ntOrdered By: Piedad Han on 10-23-2024 Urobilinogen Ql (U) Normal mg/dl Normal [facility] White blood cell (WBC) count Ordered By: Piedad Han on 10-23-2024 WBC (Bld) [#/Vol] 6.5 10*3/uL 4.4-11.0 [facility] White blood cell countOrdere d By: Piedad Han on 10-23-2024 White blood cell count 0 SEEN /hpf 0-5 [facility] Echo, Limited Studyon 2024 Echo, Limited Study [facility] [address] [place] [address] Echo, Limited Study 09/26/24 1302 MR#: [id number] Acct: [id number] Name: GAMALIEL GRIFFIN Rep #: [id number] : 1955 68 From: Primitivo Gilliam MD Attending Dr: Roman Pham PA Status: REG CL I Ordering Dr: Roman Pham Date: 09/26/24 Location: [facility] Sex: M C Admitted: Reason For Study Reason For Study: Assess EF Procedure This was a limited 2D transthoracic echocardiogram. Myocardial strain analysis was performed in this exam to aid in the assessment of cardiac function. Exam performed in department. Left Ventricle Normal LV size. The left ventricular ejection fraction is 45 %. Mild to moderate segmental systolic dysfunction (see wall motion). Septal [place] : Akinetic. Lateral [place] : Hypokinetic. Mid-anteroseptal : Hypokinetic. There are regional wall motion abnormalities as specified. Anterio-Basal: Normal. Lateral-Basal: Normal. Right Ventricle Normal RV size. Normal systolic function. Atria Normal left atrium. Normal right atrium. Mitral Valve Normal mitral valve. Tricuspid Valve Normal tricuspid valve. Aortic Valve Trisinus/trileaflet aortic valve. Pulmonic Valve Normal pulmonic valve. Great Vessels Normal aortic root. The pulmonary artery is normal size. Inferior vena cava collapse with respiration. Pericardium/Pleural No pericardial effusion. MMode/2D Measurements Calculations LVIDd: 6.0 cm IVSd: 1.1 cm LAV(MOD-bp): 76.5 ml LVIDs: 4.6 cm LVPWd: 1.3 cm LAV(MOD-bp) Indexed: 38.7 ml/m2 FS: 22.1 % LAV(MOD-sp2): 79.7 ml LAV(MOD-sp4): 69.0 ml SV(MOD-sp4): 80.6 ml LVAd ap4: 46.1 cm2 LVAd ap2: 45.9 cm2 LVLd ap4: 9.6 cm LVLd ap2: 9.8 cm SI(MOD-sp4): 40.8 ml/m2 EDV(MOD-sp4): 186.0 ml EDV(MOD-sp2): 179.7 ml EDV(sp4-el): 188.3 ml EDV(sp2-el): 182.3 ml LVAs ap4: 33.0 cm2 LVAs ap2: 30.9 cm2 LVLs ap4: 8.3 cm LVLs ap2: 9.1 cm ESV(MOD-sp4): 105.4 ml ESV(MOD-sp2): 84.3 ml ESV(sp4-el): 111.1 ml ESV(sp2-el): 89.5 ml EF(MOD-sp4): 43.3 % EF(MOD-sp2): 53.1 % EF(sp4-el): 41.0 % SV(MOD-sp2): 95.4 ml SV(sp4-el): 77.2 ml LA A4 area: 21.0 cm2 SI(MOD-sp2): 48.3 ml/m2 RA A4 area: 10.6 cm2 ECHO/Echo, Limited Study Interpretation Summary Normal LV size. The left ventricular ejection fraction is 45 %. Mild to moderate segmental systolic dysfunction (see wall motion). The global longitudinal strain is moderately abnormal. The global longitudinal strain = -12.4% (abnormal). Ordering Physician: Roman Pham Referring Physician: Roman Pham Performed By: Vandana Rajan RCS 09/26/24 1603 Date Primitivo Gilliam MD CC: Dr. Piedad Han MD; SUSHMA Alejandro Date Dictated: 09/26/24 1302 Date Transcribed: 09/26/24 160 Drywall Installer: Signed Normal [facility] Limited echocardiogram repor tOrdered By: Primitivo Gilliam on 09-26-2024 Study report [facility] [address] [place] [address] Echo, Limited Study 09/26/24 1302 MR#: [id number] Acct: [id number] Name: GAMALIEL GRIFFIN Rep #:[id number] : 1955 68 From: Primitivo Thakkar Attending Dr: SUSHMA Alejandro atus: REG CLI Ordering Dr: Roman Pham Date: 09/26/24 Location: [facility] Sex: M C Admitted: Reason For Study Reason For Study: Assess EF Procedure This was a limited 2D transthoracic echocardiogram. Myocardial strain analysis was performed in this exam to aid in the assessment of cardiac function. Exam performed in department. Left Ventricle Normal LV size. The left ventricular ejection fraction is 45 %. Mild to moderatesegmental systolic dysfunction (see wall motion). Septal [place] : Akinetic. Lateral [place] : Hypokinetic. Mid-anteroseptal : Hypokinetic. There are regional wall motion abnormalities as specified. Anterio-Basal: Normal. Lateral-Basal: Normal. Right Ventricle Normal RV size. Normal systolic function. Atria Normal left atrium. Normal right atrium. Mitral Valve Normal mitral valve. Tricuspid Valve Normal tricuspid valve. Aortic Valve Trisinus/trileaflet aortic valve. Pulmonic Valve Normal pulmonic valve. Great Vessels Normal aortic root. The pulmonary artery is normal size. Inferior vena cava collapse with respiration. Pericardium/Pleural No pericardial effusion. MMode/2D Measurements & Calculations LVIDd: 6.0 cm IVSd: 1.1 cm LAV(MOD-bp): 76.5 ml LVIDs: 4.6 cm LVPWd: 1.3 cm LAV(MOD-bp) Indexed: 38.7 ml/m2 FS: 22.1 % LAV(MOD-sp2): 79.7 ml LAV(MOD-sp4): 69.0 ml SV(MOD-sp4): 80.6 ml LVAd ap4: 46.1 cm2 LVAd ap2: 45.9 cm2 LVLd ap4: 9.6 cm LVLd ap2: 9.8 cm SI(MOD-sp4): 40.8 ml/m2 EDV(MOD-sp4): 186.0 ml EDV(MOD-sp2): 179.7 ml EDV(sp4-el): 188.3 ml EDV(sp2-el): 182.3 ml LVAs ap4: 33.0 cm2 LVAs ap2: 30.9 cm2 LVLs ap4: 8.3 cm LVLs ap2: 9.1 cm ESV(MOD-sp4): 105.4 ml ESV(MOD-sp2): 84.3 ml ESV(sp4-el): 111.1 ml ESV(sp2-el): 89.5 ml EF(MOD-sp4): 43.3 % EF(MOD-sp2): 53.1 % EF(sp4-el): 41.0 % SV(MOD-sp2): 95.4 ml SV(sp4-el): 77.2 ml LA A4 area: 21.0 cm2 SI(MOD-sp2): 48.3 ml/m2 RA A4 area: 10.6 cm2 ECHO/Echo, Limited Study Interpretation Summary Normal LV size. The left ventricular ejection fraction is 45 %. Mild to moderate segmental systolic dysfunction (see wall motion). The global longitudinal strain is moderately abnormal. The global longitudinal strain = -12.4% (abnormal). Ordering Physician: Roman Pham Referring Physician: Roman Pham Performed By: Vandana Rajan RCS 09/26/24 160 Date _ Primitivo Gilliam MD CC: Dr. Piedad Han MD; SUSHMA Alejandro ~ Date Dictated: 09/26/24 1302 Date Transcribed: 09/26/24 160 Drywall Installer: Signed [facility] Work Phone: Chung 08-06-2024 [facility] Telephone (CARDWS) -- GABYGAMALIEL Ariane ([id number]) 1955 Date Time Provider Department 08/06/24 ELENA JORDAN During your visit today, we recorded the following information about you: Stevo Arora MA 08/06/2024 12:24 PM Signed Pt needs to be scheduled with Dr. Ortiz in and also needs a 3 month follow up with Dr. Jordan. Pt is asking if he can do both on the same day in [place]. Will see if [facility] can assist. OCTAVIO Elliott Devoushun L 08/06/2024 3:38 PM Signed LVM. Pt is scheduled w/ Dr. Ortiz on 09/27/24 at 11:20 AM at [facility]. Also scheduled w/ Dr. Jordan on 12/11/24 at 2 PM at [facility]. Yola Berger Allergies As of Date: 08/06/2024 Noted Allergy Reaction LISINOPRIL 09/30/2022 7 - Swelling Date Reviewed: 08/05/2024 Reviewed by: Jasmin Carr, TAN - Fully Assessed Reason for Visit: Appointment [[id number]] Prescriptions as of 08/07/2024 - sacubitril-valsartan (ENTRESTO) 24-26 mg tablet Take 1 tablet by mouth two times a day. - Blood-Glucose Sensor (FREESTYLE YAZMIN 3 PLUS SENSOR) kathleen CHANGE SENSOR EVERY 15 days. USE FOR CONTINUOUS GLUCOSE MONITORING. MULTIPLE INSULIN INJECTIONS E11.9 - Blood-Glucose Meter,Continuous (FREESTYLE YAZMIN 3 READER) [facility] DISPENSE ONE READER KIT. USE FOR CONTINUOUS GLUCOSE MONITORING. MULTIPLE INSULIN INJECTIONS. E11.9 - insulin glargine (LANTUS SOLOSTAR U-100 INSULIN) 100 unit/mL (3 mL) Inject 25 units once daily - dapagliflozin propanediol (FARXIGA) 10 mg tablet Take 1 tablet by mouth daily with breakfast. - KERENDIA 20 mg tablet Take 20 mg by mouth once daily. - blood sugar diagnostic (TRUE METRIX GLUCOSE TEST STRIP) test strip Use as instructed to check blood sugar 4 times a day - insulin aspart U-100 (NOVOLOG FLEXPEN U-100 INSULIN) 100 unit/mL (3 mL) Inject 5 units with meals PLUS SS#1 - pre meal blood sugar only (1 unit for every 50 over 150 PRE MEAL) TDD 20 units - metoprolol succinate ER (TOPROL XL) 50 mg 24 hr tablet Take 1 tablet by mouth two times a day. - Insulin Union, Disposable, (BD ULTRA-FINE KENN PEN NEEDLE) 32 gauge x Use to inject insulin 4 times a day - Lancets lancets Use as directed to check blood sugars 4 times a day - levothyroxine (SYNTHROID) 175 mcg tablet Take 150 mcg by mouth daily before breakfast. - OTC PRODUCT Stool softner daily - rosuvastatin (CRESTOR) 20 mg tablet Take 40 mg by mouth once daily. - amLODIPine (NORVASC) 10 mg tablet Take 10 mg by mouth once daily. - aspirin, enteric coated (ASPIRIN, ENTERIC COATED) 81 mg EC tablet Take 81 mg by mouth once daily. - allopurinol (ZYLOPRIM) 300 mg tablet Take 300 mg by mouth once daily. - buPROPion SR (ZYBAN SR; WELLBUTRIN SR) 150 mg 12 hr tablet Take 150 mg by mouth twice daily. Problem List As Of Date 08/06/2024 Noted Resolved Ischemic cardiomyopathy [I25.5] 01/10/2023 CAD (coronary artery disease) [I25.10] 01/10/2023 Hypertensive kidney disease with stage 3 chroni*01/10/2023 Essential hypertension [I10] 01/10/2023 Stage 3b chronic kidney disease (HCC) [N18.32] 01/10/2023 Type 2 diabetes mellitus with stage 3b chronic *01/10/2023 Discharge planning issues [Z75.8] 01/24/2023 Special screening for malignant neoplasms, colo*01/24/2023 Acute on chronic systolic congestive heart fail*01/26/2023 01/31/2023 HLD (hyperlipidemia) [E78.5] 01/26/2023 Hypothyroid [E03.9] 01/26/2023 Gout [M10.9] 01/26/2023 JESENIA (obstructive sleep apnea) [G47.33] 01/26/2023 Mitral regurgitation [I34.0] 01/26/2023 Coronary artery disease due to lipid rich plaqu*01/26/2023 ABLA (acute blood loss anemia) [D62] 01/28/2023 Thrombocytopenia (HCC) [D69.6] 01/28/2023 01/30/2023 Hypervolemia [E87.70] 01/28/2023 Hyperkalemia [E87.5] 01/28/2023 01/30/2023 Hyponatremia [E87.1] 01/28/2023 01/30/2023 Postoperative pain [G89.18] 01/30/2023 Atrial fibrillation with RVR (HCC) [I48.91] 01/30/2023 Insulin dose changed (HCC) [Z79.4] 01/30/2023 Chronic systolic congestive heart failure (HCC)*01/31/2023 Summary [Z91.89] 02/01/2023 Hyperparathyroidism (HCC) [E21.3] 08/04/2023 Encounter Status:Closed by STEVO ARORA on 08/07/24 Normal [facility] Basic metabolic 2000 panelOr dered By: Allie Anand on 08-05-2024 Anion gap [Moles/Vol] 13 mmol/L 8 - 15 mmol/L [facility] Calcium [Mass/Vol] 9.7 mg/dL 8.5 - 10. 2 mg/dL [facility] Chloride [Moles/Vol] 99 mmol/L 98 - 10 7 mmol/L [facility] CO2 [Moles/Vol] 23 mmol/L 22 - 30 mmol/L [facility] Creatinine [Mass/Vol] 2.47 mg/dL High 0.73 - 1.22 mg/dL [facility] GFR/1.73 sq M.predicted among non-blacks MDRD (S/P/Bld) [Vol rate/Area] 28 mL/min/{1.73_m2} Low - PINF [facility] Comment on above: Estimated Glomerular Filtration Rate (eGFR) is calculated using the 2020 CKD-EPI creatinine equation. This equation utilizes serum creatinine, sex, and age as parameters. The creatinine assay has traceable calibration to isotope dilution-mass spectrometry. Refer to KDIGO guidelines for clinical interpretation. In patients with unstable renal function, e.g. those with acute kidney injury, the eGFR may not accurately reflect actual GFR. Glucose [Mass/Vol] 131 mg/dL High 74 - 99 mg/dL [facility] Comment on above: The [place] Diabete s Association (ADA) provides guidance for cutoff values for fasting glucose and random glucose. The ADA defines fasting as no caloric intake for at least 8 hours. Fasting plasma glucose results between 100 to 125 mg/dL indicate increased risk for diabetes (prediabetes). Fasting plasma glucose results greater than or equal to 126 mg/dL meet the criteria for diagnosis of diabetes. In the absence of unequivocal hyperglycemia, results should be confirmed by repeat testing. In a patient with classic symptoms of hyperglycemia or hyperglycemic crisis, random plasma glucose results greater than or equal to 200 mg/dL meet the criteria for diagnosis of diabetes. Reference: Standards of Medical Care in Diabetes 2016, [place] Diabetes Association. Diabetes Care. 2016.39(Suppl 1). Interpretation and review of laboratory results Abnormal [facility] Potassium [Moles/Vol] 4.6 mmol/L 3.7 - 5.1 mmol/L [facility] Sodium [Moles/Vol] 135 mmol/L Low 136 - 144 mmol/L [facility] Urea nitrogen [Mass/Vol] 46 mg/dL High 9 - 24 mg/dL [facility] Basic metabolic 2000 panelon 08-05-2024 Anion gap [Moles/Vol] 13 mmol/L Normal 8-15 [facility] Comment on above: Order Comment: Nasir grace Type: BLOOD SPECIMEN Ordering Facility: [facility] Address: [address] [place] [address] Performed By: #### L IPNF #### [facility] CLIA [id number] [address] [place] [address] [place] Calcium [Mass/Vol] 9.7 mg/dL Normal 8.5-10.2 [facility] Comment on above: Order Comment: Nasir grace Type: BLOOD SPECIMEN Ordering Facility: [facility] Address: [address] [place] [address] Performed By: #### L IPNF #### [facility] CLIA [id number] [address] [place] [address] [place] Chloride [Moles/Vol] 99 mmol/L Normal 98-107 [facility] Comment on above: Order Comment: Speci men Type: BLOOD SPECIMEN Ordering Facility: [facility] Address: [address] [place] [address] Performed By: #### L IPNF #### [facility] CLIA [id number] [address] [place] [address] [place] CO2 [Moles/Vol] 23 mmol/L Normal 22-30 [facility] Comment on above: Order Comment: Speci men Type: BLOOD SPECIMEN Ordering Facility: [facility] Address: [address] [place] [address] Performed By: #### L IPNF #### [facility] CLIA [id number] [address] [place] [address] [place] Creatinine [Mass/Vol] 2.47 mg/dL High 0.73-1.22 [facility] Comment on above: Order Comment: Speci men Type: BLOOD SPECIMEN Ordering Facility: [facility] Address: [address] [place] [address] Performed By: #### L IPNF #### [facility] CLIA [id number] [address] [place] [address] [place] Creatinine and Glomerular filtration rate.predicted panel (S/P/Bld) 28 mL/min/1.73m??? Low >=60 [facility] Comment on above: Order Comment: Speci men Type: BLOOD SPECIMEN Ordering Facility: [facility] Address: [address] [place] [address] Result Comment: Soraya mated Glomerular Filtration Rate (eGFR) is calculated using the 2020 CKD-EPI creatinine equation. This equation utilizes serum creatinine, sex, and age as parameters. The creatinine assay has traceable calibration to isotope dilution-mass spectrometry. Refer to KDIGO guidelines for clinical interpretation. In patients with unstable renal function, e.g. those with acute kidney injury, the eGFR may not accurately reflect actual GFR. Performed By: #### L IPNF #### [facility] CLIA [id number] [address] [place] [address] [place] Glucose [Mass/Vol] 131 mg/dL High 74-99 [facility] Comment on above: Order Comment: Nasir grace Type: BLOOD SPECIMEN Ordering Facility: [facility] Address: [address] [place] [address] Result Comment: The [place] Diabetes Association (ADA) provides guidance for cutoff values for fasting glucose and random glucose. The ADA defines fasting as no caloric intake for at least 8 hours. Fasting plasma glucose results between 100 to 125 mg/dL indicate increased risk for diabetes (prediabetes). Fasting plasma glucose results greater than or equal to 126 mg/dL meet the criteria for diagnosis of diabetes. In the absence of unequivocal hyperglycemia, results should be confirmed by repeat testing. In a patient with classic symptoms of hyperglycemia or hyperglycemic crisis, random plasma glucose results greater than or equal to 200 mg/dL meet the criteria for diagnosis of diabetes. Reference: Standards of Medical Care in Diabetes 2016, [place] Diabetes Association. Diabetes Care. 2016.39(Suppl 1). Performed By: #### L IPNF #### [facility] CLIA [id number] [address] [place] [address] [place] Potassium [Moles/Vol] 4.6 mmol/L Normal 3.7-5.1 [facility] Comment on above: Order Comment: Nasir grace Type: BLOOD SPECIMEN Ordering Facility: [facility] Address: [address] [place] [address] Performed By: #### L IPNF #### [facility] CLIA [id number] [address] [place] [address] [place] Sodium [Moles/Vol] 135 mmol/L Low 136-144 [facility] Comment on above: Order Comment: Nasir grace Type: BLOOD SPECIMEN Ordering Facility: [facility] Address: [address] [place] [address] Performed By: #### L IPNF #### [facility] CLIA [id number] [address] [place] [address] [place] Urea nitrogen [Mass/Vol] 46 mg/dL High 9-24 [facility] Comment on above: Order Comment: Speci men Type: BLOOD SPECIMEN Ordering Facility: [facility] Address: [address] [place] [address] Performed By: #### L IPNF #### [facility] CLIA [id number] [address] [place] [address] OF [facility] CNOVon 08-05-2024 CNOV Office Visit (CARDWS ) -- GAMALIEL GRIFFIN ([id number]) 1955 M Date Time Provider Department 08/05/24 8:20 AM ELENA JORDAN During your visit today, we recorded the following information about you: Pulse Respiration Blood pressure Weight 52/minute 12/minute 120/60 81.6 kg Height 1.778 m Elena Jordan MD 08/05/2024 8:46 AM Signed Elena Jordan MD Interventional Cardiology [address] [phone] Chief Complaint Patient presents with: New Patient: transfer care from [facility] HISTORY OF PRESENT ILLNESS: Mr. Griffin is a 68-year-old male with a history of severe cardiomyopathy, CAD, and CKD, presenting for evaluation of ICD placement. The patient reports feeling well overall and denies dyspnea, chest pain, dizziness, lightheadedness, or palpitations. He notes mild leg edema, which he attributes to CKD. He experiences transient dyspnea when initiating physical activities, such as climbing stairs, but states that this resolves after a few minutes, allowing him to continue without difficulty. He denies any significant dyspnea during prolonged activities, including yard work. He underwent CABG on 01/26/2023 at [facility], involving SULLIVAN to the LAD, vein grafts to the PDA and first obtuse marginal, and left radial artery to the ramus. He previously had 4 stents placed in 2008 at [facility] following an VT. A recent echocardiogram revealed an LVEF of 25%, and a cardiac catheterization on 11/07/2022 demonstrated severe calcification, leading to the decision for CABG. He has been exercising regularly, using a [employer] for 3 years and walking 5 days a week at 3 mph for 45 minutes. He recently reduced his work hours to part-time to accommodate his exercise regimen, noting fatigue at the end of the day but remains determined to maintain his activity level. He has CKD, with a creatinine level of 2.31 mg/dL and an eGFR of 30 mL/min/1.73 m? as of 05/29/2024. He reports that his thread machine operator, Dr. Barrios, believes dialysis is inevitable but notes that his kidney function has remained stable for the past 2 years, which he attributes to his exercise routine. He denies any history of dialysis. He is currently under the care of Dr. Corcoran, his recooperer, and Dr. Barrios, his thread machine operator, both at [facility]. He is scheduled for a follow-up echocardiogram on 09/04/2024 and sees his thread machine operator every 4 to 6 months, with the next appointment in November. 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 He denies any history of tobacco or alcohol use. He is currently taking amlodipine 10 mg, aspirin, Farxiga, hydralazine 10 mg TID, Imdur 5 mg TID, and Kerendia. Cardiac Risk Factors age (male over 45, female over 55), hyperlipidemia, hypertension, family history of CAD PAST MEDICAL HISTORY Diagnosis Date Anemia, unspecified CAD (coronary artery disease) Cardiomyopathy (HCC) Congestive heart failure (HCC) Diabetes mellitus (HCC) Dyslipidemia Essential hypertension Gout H/O heart artery stent Hypothyroidism Kidney stone S/P CABG x 4 01/26/2023 Sleep apnea STEMI (ST elevation myocardial infarction) (HCC) PAST SURGICAL HISTORY Procedure Laterality Date CABG, VEIN, FOUR 01/26/2023 01/26/2023: CABGx4: SULLIVAN to LAD SVG to RPDA/SVG to OM2 /Left Radial to Ramus @ [facility] COLONOSCOPY FLX DX W/COLLJ SPEC WHEN PFRMD 06/23/2020 PAST SURGICAL HISTORY OF Cardiac stent x 4 FAMILY HISTORY Problem Relation Age of Onset other (passed at age 82) Mother Intersitial Lung Disease Mother Heart Attack Father other (passed at age 53) Father Cancer Paternal Grandfather Diabetes Sister other (valve disease) Sister other (atrial fib) Sister Social History Tobacco Use Smoking status: Never Smokeless tobacco: Never Substance Use Topics Alcohol use: Never Drug use: Never ALLERGIES Allergen Reactions Lisinopril Swelling Medications: Current Outpatient Medications Medication Sig Dispense Refill Blood-Glucose Sensor (FREESTYLE YAZMIN 3 PLUS SENSOR) kathleen CHANGE SENSOR EVERY 15 days. USE FOR CONTINUOUS GLUCOSE MONITORING. MULTIPLE INSULIN INJECTIONS E11.9 6 each 3 Blood-Glucose Meter,Continuous (FREESTYLE YAZMIN 3 READER) [facility] DISPENSE ONE READER KIT. USE FOR CONTINUOUS GLUCOSE MONITORING. MULTIPLE INSULIN INJECTIONS. E11.9 1 each 0 insulin glargine (LANTUS SOLOSTAR U-100 INSULIN) 100 unit/mL (3 mL) Inject 25 units once daily dapagliflozin propanediol (FARXIGA) 10 mg tablet Take 1 tablet by mouth daily with breakfast. 90 tablet 3 KERENDIA 20 mg tablet Take 20 mg by mouth once daily. blood sugar diagnostic (TRUE METRIX GLUCOSE TEST STRIP) test strip Use as instructed to check blood sugar 4 times a day 100 Each 1 insulin aspart U-100 (NOVOLOG FLEXPEN U-100 IN (more content not included)... Normal [facility] Absolute lymphocyte countOrd ered By: Piedad Han on 07-30-2024 Lymphocytes Auto (Unsp spec) [#/Vol] 0.99 10*3/uL 0.83-4.51 [facility] Absolute neutrophil countOrd ered By: Piedad Han on 07-30-2024 Neutrophils (Bld) [#/Vol] 4.3 10*3/uL 2.0-7.7 [facility] Anion gap in Serum or Plasma Ordered By: Piedad Han on 07-30-2024 Anion gap [Moles/Vol] 12 mmol/L 5-15 [facility] Automated lymphocyte count a s percentage of total leukocytesOrdered By: Piedad Han on 07-30-2024 Lymphocytes/100 WBC Auto (Unsp spec) 15.7 % Low 19-41 [facility] BUN/creatinine ratioOrdered By: Piedad Han on 07-30-2024 Urea nitrogen/Creatinine [Mass ratio] 19.2 mg/mg 10-20 [facility] Basophil percentageOrdered B y: Piedad Han on 07-30-2024 Basophils/100 WBC (Bld) 0.5 % 0-1 [facility] Bilirubin, totalOrdered By: Piedad Han on 07-30-2024 Bilirubin [Mass/Vol] 0.25 mg/dL 0.00-1.30 [facility] CBC W/Diff, Automatedon 07-14 Absolute Lymph 0.99 X10 3/uL Normal 0.83-4.51 [facility] Comment on above: Order Comment: Urine , Random Performed By: #### L 400.0001, L501.0900 #### [facility] [address] [place], [address] Absolute Neut 4.3 X10 3/uL Normal 2.0-7.7 [facility] Comment on above: Order Comment: Urine , Random Performed By: #### L 400.0001, L501.0900 #### [facility] [address] [place], [address] Basophils/100 WBC (Bld) 0.5 % Normal 0-1 [facility] Comment on above: Order Comment: Urine , Random Performed By: #### L 400.0001, L501.0900 #### [facility] [address] [place], [address] Eosinophils/100 WBC (Bld) 5.2 % High 0-5 [facility] Comment on above: Order Comment: Urine , Random Performed By: #### L 400.0001, L501.0900 #### [facility] [address] [place], [address] Erythrocyte distribution width (RBC) [Ratio] 13.5 % Normal 11.6-14.6 [facility] Comment on above: Order Comment: Urine , Random Performed By: #### L 400.0001, L501.0900 #### [facility] [address] [place], [address] Hematocrit (Bld) [Volume fraction] 39.2 % Low 40-54 [facility] Comment on above: Order Comment: Urine , Random Performed By: #### L 400.0001, L501.0900 #### [facility] [address] [place], [address] Hemoglobin (Bld) [Mass/Vol] 12.3 g/dL Low 13.0-16.5 [facility] Comment on above: Order Comment: Urine , Random Performed By: #### L 400.0001, L501.0900 #### [facility] [address] [place], [address] IG% 0.500 Normal 0.0-0.9 [facility] Comment on above: Order Comment: Urine , Random Result Comment: IG% - Immature Granulocytes (promyelocytes, myelocytes and metamyelocytes) > 1% indicates that a LEFT SHIFT is Present. Performed By: #### L 400.0001, L501.0900 #### [facility] [address] [place], [address] Lymphocytes/100 WBC (Bld) 15.7 % Low 19-41 [facility] Comment on above: Order Comment: Urine , Random Performed By: #### L 400.0001, L501.0900 #### [facility] [address] [place], [address] MCH (RBC) [Entitic mass] 30.7 pg Normal 27.0-32.0 [facility] Comment on above: Order Comment: Urine , Random Performed By: #### L 400.0001, L501.0900 #### [facility] [address] [place], [address] MCHC (RBC) [Mass/Vol] 31.4 g/dL Low 32-36 [facility] Comment on above: Order Comment: Urine , Random Performed By: #### L 400.0001, L501.0900 #### [facility] [address] [place], [address] MCV (RBC) [Entitic vol] 97.8 fL High 80-94 [facility] Comment on above: Order Comment: Urine , Random Performed By: #### L 400.0001, L501.0900 #### [facility] [address] [place], [address] Monocytes/100 WBC (Bld) 9.8 % Normal 0-10 [facility] Comment on above: Order Comment: Urine , Random Performed By: #### L 400.0001, L501.0900 #### [facility] [address] [place], [address] Neutrophils/100 WBC (Bld) 68.3 % Normal 47-70 [facility] Comment on above: Order Comment: Urine , Random Performed By: #### L 400.0001, L501.0900 #### [facility] [address] [place], [address] Nucleated RBC (Bld) [#/Vol] 0 10*3/uL Normal 0-5 [facility] Comment on above: Order Comment: Urine , Random Performed By: #### L 400.0001, L501.0900 #### [facility] [address] [place], [address] Platelet mean volume (Bld) [Entitic vol] 8.8 fL Normal 6.2-12.0 [facility] Comment on above: Order Comment: Urine , Random Performed By: #### L 400.0001, L501.0900 #### [facility] [address] [place], [address] Platelets (Bld) [#/Vol] 186 10*3/uL Normal 150-450 [facility] Comment on above: Order Comment: Urine , Random Performed By: #### L 400.0001, L501.0900 #### [facility] [address] [place], [address] RBC (Bld) [#/Vol] 4.01 10*6/uL Low 4.6-6.2 [facility] Comment on above: Order Comment: Urine , Random Performed By: #### L 400.0001, L501.0900 #### [facility] [address] [place], [address] RDW SD 48.5 fl High 35.1-43.9 [facility] Comment on above: Order Comment: Urine , Random Performed By: #### L 400.0001, L501.0900 #### [facility] [address] [place], [address] WBC (Bld) [#/Vol] 6.3 10*3/uL Normal 4.4-11.0 [facility] Comment on above: Order Comment: Urine , Random Performed By: #### L 400.0001, L501.0900 #### [facility] [address] [place], [address] Calculated very low density lipoprotein (VLDL) cholesterol measurementOrdered By: Piedad Han on 07-30-2024 Calculated very low density lipoprotein (VLDL) cholesterol measurement 35 mg/dL 5-40 [facility] Carbon dioxide, total [Moles /volume] in Central venous bloodOrdered By: Piedad Han on 07-30-2024 CO2 [Moles/Vol] 19.9 mmol/L Low 21.0-32.0 [facility] Chloride assayOrdered By: May Han on 07-30-2024 Chloride [Moles/Vol] 101 mmol/L 98-108 [facility] Comprehensive Metabolic Prof ilon 07-30-2024 Albumin [Mass/Vol] 3.6 g/dL Normal 3.4-4.8 [facility] Comment on above: Order Comment: Urine , Random Performed By: #### L 400.0001, L501.0900 #### [facility] [address] [place], [address] Albumin/Globulin [Mass ratio] 1.4 {ratio} Normal 0.9-2.4 [facility] Comment on above: Order Comment: Urine , Random Performed By: #### L 400.0001, L501.0900 #### [facility] [address] [place], [address] ALK PHOS 126 U/L Normal 40-129 [facility] Comment on above: Order Comment: Urine , Random Performed By: #### L 400.0001, L501.0900 #### [facility] [address] [place], [address] ALT [Catalytic activity/Vol] 46 U/L Normal <=46 [facility] Comment on above: Order Comment: Urine , Random Performed By: #### L 400.0001, L501.0900 #### [facility] [address] [place], [address] AST [Catalytic activity/Vol] 34 U/L Normal <=37 [facility] Comment on above: Order Comment: Urine , Random Performed By: #### L 400.0001, L501.0900 #### [facility] [address] [place], [address] Bilirubin [Mass/Vol] 0.25 mg/dL Normal 0.00-1.30 [facility] Comment on above: Order Comment: Urine , Random Performed By: #### L 400.0001, L501.0900 #### [facility] [address] [place], [address] BUN/CRE 19.2 RATIO Normal 10-20 [facility] Comment on above: Order Comment: Urine , Random Performed By: #### L 400.0001, L501.0900 #### [facility] [address] [place], [address] Calcium [Mass/Vol] 8.6 mg/dL Normal 7.6-11.0 [facility] Comment on above: Order Comment: Urine , Random Performed By: #### L 400.0001, L501.0900 #### [facility] [address] [place], [address] Chloride [Moles/Vol] 101 mmol/L Normal 98-108 [facility] Comment on above: Order Comment: Urine , Random Performed By: #### L 400.0001, L501.0900 #### [facility] [address] [place], [address] CO2 [Moles/Vol] 19.9 mmol/L Low 21.0-32.0 [facility] Comment on above: Order Comment: Urine , Random Performed By: #### L 400.0001, L501.0900 #### [facility] [address] [place], [address] Creatinine [Mass/Vol] 2.76 mg/dL High 0.70-1.20 [facility] Comment on above: Order Comment: Urine , Random Performed By: #### L 400.0001, L501.0900 #### [facility] [address] [place], [address] GAP 12 Normal 5-15 [facility] Comment on above: Order Comment: Urine , Random Performed By: #### L 400.0001, L501.0900 #### [facility] [address] [place], [address] GFR/1.73 sq M.predicted among non-blacks MDRD (S/P/Bld) [Vol rate/Area] 24 mL/min/{1.73_m2} Low >60 [facility] Comment on above: Order Comment: Urine , Random Result Comment: mL/m in/1.73m2 CKD-EPI Creatinine Equation (2020) Performed By: #### L 400.0001, L501.0900 #### [facility] [address] [place], [address] Globulin (S) [Mass/Vol] 2.5 g/dL Normal 2.2-4.2 [facility] Comment on above: Order Comment: Urine , Random Performed By: #### L 400.0001, L501.0900 #### [facility] [address] [place], [address] Glucose [Mass/Vol] 167 mg/dL High 70-99 [facility] Comment on above: Order Comment: Urine , Random Performed By: #### L 400.0001, L501.0900 #### [facility] [address] [place], [address] Potassium [Moles/Vol] 4.6 mmol/L Normal 3.3-5.1 [facility] Comment on above: Order Comment: Urine , Random Performed By: #### L 400.0001, L501.0900 #### [facility] [address] [place], [address] Sodium [Moles/Vol] 132 mmol/L Low 133-145 [facility] Comment on above: Order Comment: Urine , Random Performed By: #### L 400.0001, L501.0900 #### [facility] [address] [place], [address] T PROT 6.1 g/dL Normal 5.9-8.4 [facility] Comment on above: Order Comment: Urine , Random Performed By: #### L 400.0001, L501.0900 #### [facility] [address] [place], [address] Urea nitrogen [Mass/Vol] 53 mg/dL High 4-19 [facility] Comment on above: Order Comment: Urine , Random Performed By: #### L 400.0001, L501.0900 #### [facility] [address] [place], [place], [address] Eosinophil percentageOrdered By: Piedad Han on 07-30-2024 Eosinophils/100 WBC (Bld) 5.2 % High 0-5 [facility] Erythrocyte distribution wid th ratioOrdered By: Piedad Han on 07-30-2024 Erythrocyte distribution width (RBC) [Ratio] 13.5 % 11.6-14.6 [facility] Erythrocyte distribution wid th standard deviationOrdered By: Piedad Han on 07-30-2024 Erythrocyte distribution width (RBC) [Ratio] 48.5 fl High 35.1-43.9 [facility] Glomerular filtration rate ( GFR) estimation/1.73 sq m using serum, plasma, or whole bOrdered By: Piedad Han on 07-30-2024 GFR/1.73 sq M.predicted among non-blacks MDRD (S/P/Bld) [Vol rate/Area] 24 mL/min/{1.73_m2} Low >60 [facility] Comment on above: mL/min/1.73m2 CKD-EP I Creatinine Equation (2020) Hematocrit Auto (Bld) [Volum e fraction]Ordered By: Piedad Han on 07-30-2024 Hematocrit (Bld) [Volume fraction] 39.2 % Low 40-54 [facility] Hemoglobin A1con 07-30-2024 HbA1c (Bld) [Mass fraction] 6.8 % High <=5.6 [facility] Comment on above: Order Comment: Urine , Random Result Comment: Norm al < 5.7 % Prediabetic 5.7 - 6.4 % Diabetic >or= 6.5 % Please note range changes. Performed By: #### L 400.0001, L501.0900 #### [facility] [address] [place], [place], [address] Hemoglobin A1c percentageOrd ered By: Piedad Han on 07-30-2024 HbA1c (Bld) [Mass fraction] 6.8 % High <5.7 [facility] Comment on above: Normal < 5.7 % Predi abetic 5.7 - 6.4 % Diabetic >or= 6.5 % Please note range changes. Hemoglobin measurementOrdere d By: Piedad Han on 07-30-2024 Hemoglobin (Bld) [Mass/Vol] 12.3 g/dL Low 13.0-16.5 [facility] Immature granulocytes/100 WB C Auto (Bld)Ordered By: Piedad Han on 07-30-2024 Immature granulocytes/100 WBC (Bld) 0.500 % 0.0-0.9 [facility] Comment on above: IG% - Immature Granu locytes (promyelocytes, myelocytes and metamyelocytes) > 1% indicates that a LEFT SHIFT is Present. LDL calc ser/plasOrdered By: Piedad Han on 07-30-2024 Cholesterol in LDL [Mass/Vol] 39 mg/dL [facility] Comment on above: Vevzhntmyz=767-825 m g/dL & Higher Onek=452 mg/dL or greater Laboratory - Chemistry and C hemistry - challengeOrdered By: Piedad Han on 07-30-2024 AST [Catalytic activity/Vol] 34 U/L <38 [facility] Lipid Profileon 07-30-2024 CHOL:HDL 2.76 Normal [facility] Comment on above: Order Comment: Urine , Random Performed By: #### L 400.0001, L501.0900 #### [facility] [facility] [address] [place], [place], [id number] (537) Cholesterol [Mass/Vol] 115 mg/dL Normal <=200 [facility] Comment on above: Order Comment: Urine , Random Result Comment: Chol esterol level, Desirable <200 mg/dL Borderline high cholesterol 200-239 mg/dL High cholesterol >=240 mg/dL Recommendations of the NCEP Adult Treatment Panel for the following risk-cutoff thresholds for the [place] population. Performed By: #### L 400.0001, L501.0900 #### [facility] [address] [place], [address] Cholesterol in HDL [Mass/Vol] 42 mg/dL Normal [facility] Comment on above: Order Comment: Urine , Random Result Comment: Zunilda onal Cholesterol Education Program (NCEP) guidelines: <40 mg/dL: Low HDL-cholesterol (major risk factor for CHD) >= 60 mg/dL: High HDL-cholesterol (negative risk factor for CHD) HDL-cholesterol is affected by a number of factors, e.g. smoking, exercise, hormones, sex and age. Performed By: #### L 400.0001, L501.0900 #### [facility] [address] [place], [address] Cholesterol in LDL [Mass/Vol] 39 mg/dL Normal [facility] Comment on above: Order Comment: Urine , Random Result Comment: Bord dqtojs=537-893 mg/dL Higher Ifrl=702 mg/dL or greater Performed By: #### L 400.0001, L501.0900 #### [facility] [address] [place], [address] Cholesterol in VLDL [Mass/Vol] 35 mg/dL Normal 5-40 [facility] Comment on above: Order Comment: Urine , Random Performed By: #### L 400.0001, L501.0900 #### [facility] [address] [place], [address] Triglyceride [Mass/Vol] 174 mg/dL Normal [facility] Comment on above: Order Comment: Urine , Random Result Comment: The drugs N-Acetylcysteine and Metamizole may falsely depress this assay. Normal range: <150 mg/dL Borderline High: 150-199 mg/dL High: 200-499 mg/dL Very High: >500 mg/dL Performed By: #### L 400.0001, L501.0900 #### [facility] [address] [place], [address] MCV (mean corpuscular volume ) determinationOrdered By: Piedad Han on 07-30-2024 MCV (RBC) [Entitic vol] 97.8 fL High 80-94 [facility] Magnesiumon 07-30-2024 Magnesium [Mass/Vol] 2.3 mg/dL High 1.5-2.2 [facility] Comment on above: Order Comment: Urine , Random Performed By: #### L 400.0001, L501.0900 #### [facility] [address] [place], [address] Magnesium measurement (mass/ volume)Ordered By: Piedad Han on 07-30-2024 Magnesium (Unsp spec) [Mass/Vol] 2.3 mg/dL High 1.5-2.2 [facility] Mean corpuscular hemoglobin (MCH) determinationOrdered By: Piedad Han on 07-30-2024 MCH (RBC) [Entitic mass] 30.7 pg 27.0-32.0 [facility] Mean corpuscular hemoglobin concentration (MCHC) determinationOrdered By: Piedad Han on 07-30-2024 MCHC (RBC) [Mass/Vol] 31.4 g/dL Low 32-36 [facility] Mean platelet volume determi nationOrdered By: Piedad Han on 07-30-2024 Platelet mean volume (Bld) [Entitic vol] 8.8 fL 6.2-12.0 [facility] Microalb:Creat Ratio,Random URon 07-30-2024 MALB:CREAT 2470.9 mg/g CRE Normal [facility] Comment on above: Order Comment: Order Date: 12/05/23 Order Info: 4548-4 - A1C Performed By: #### L 501.9520, L500.4050, L500.4100, L501.5200, L100.0100, L501.9985 #### [facility] [address] [place], [address] MICROALBUMIN,UR 808.0 mg/L Normal NO RANGE EST. [facility] Comment on above: Order Comment: Order Date: 12/05/23 Order Info: 4548-4 - A1C Performed By: #### L 501.9520, L500.4050, L500.4100, L501.5200, L100.0100, L501.9985 #### [facility] [address] [place], [place], [id number] Monocyte percentageOrdered B y: Piedad Han on 07-30-2024 Monocytes/100 WBC (Bld) 9.8 % 0-10 [facility] Neutrophil percentageOrdered By: Piedad Han on 07-30-2024 Neutrophils/100 WBC (Bld) 68.3 % 47-70 [facility] Nucleated red blood cell per centageOrdered By: Piedad Han on 07-30-2024 Nucleated RBC/100 WBC (Bld) [Ratio] 0 % 0-5 [facility] Platelet countOrdered By: May Han on 07-30-2024 Platelets (Bld) [#/Vol] 186 10*3/uL 150-450 [facility] Potassium measurement (mass/ volume)Ordered By: Piedad Han on 07-30-2024 Potassium (Unsp spec) [Mass/Vol] 4.6 mmol/L 3.3-5.1 [facility] Protein+Creatinine Ratio,Uri neon 07-30-2024 PROT:CRE RATIO 3547 mg/g CRE High 0-200 [facility] Comment on above: Order Comment: Order Date: 12/05/23 Order Info: 0184-1 - CBCD Performed By: #### L 501.9520, L500.4050, L500.4100, L501.5200, L100.0100, L501.9985 #### [facility] [address] [place], [address] Protein (U) [Mass/Vol] 116.0 mg/dL High 0.0-12.0 [facility] Comment on above: Order Comment: Order Date: 12/05/23 Order Info: 0184-1 - CBCD Performed By: #### L 501.9520, L500.4050, L500.4100, L501.5200, L100.0100, L501.9985 #### [facility] [address] [place], [address] RBC Auto (Bld) [#/Vol]Ordere d By: Piedad Han on 07-30-2024 RBC (Bld) [#/Vol] 4.01 10*6/uL Low 4.6-6.2 [facility] Random urine creatinine priyanka urement (mass/volume)Ordered By: Piedad Han on 07-30-2024 Creatinine Unsp time (U) [Mass/Vol] 32.70 mg/dL Low 39.00-259. 00 [facility] Screening total cholesterol/ high density lipoprotein (HDL) cholesterol ratioOrdered By: Piedad Han on 07-30-2024 Cholesterol.total/Choles terol in HDL [Mass ratio] 2.76 {ratio} [facility] Serum creatinine measurement (mass/volume)Ordered By: Piedad Han on 07-30-2024 Creatinine [Mass/Vol] 2.76 mg/dL High 0.70-1.20 [facility] Serum globulin measurementOr dered By: Piedad Han on 07-30-2024 Globulin (S) [Mass/Vol] 2.5 g/dL 2.2-4.2 [facility] Serum glucose measurement (m ass/volume)Ordered By: Piedad Han on 07-30-2024 Glucose [Mass/Vol] 167 mg/dL High 70-99 [facility] Serum or plasma alanine menezes otransferase (ALT) measurementOrdered By: Piedad Han on 07-30-2024 ALT [Catalytic activity/Vol] 46 U/L <47 [facility] Serum or plasma albumin priyanka urement (mass/volume)Ordered By: Piedad Han on 07-30-2024 Albumin [Mass/Vol] 3.6 g/dL 3.4-4.8 [facility] Serum or plasma albumin/glob ulin mass ratioOrdered By: Piedad Han on 07-30-2024 Albumin/Globulin [Mass ratio] 1.4 {ratio} 0.9-2.4 [facility] Serum or plasma alkaline enio sphatase measurementOrdered By: Piedad Han on 07-30-2024 ALP [Catalytic activity/Vol] 126 U/L 40-129 [facility] Serum or plasma calcium priyanka urement (mass/volume)Ordered By: Piedad Han on 07-30-2024 Calcium [Mass/Vol] 8.6 mg/dL 7.6-11.0 [facility] Serum or plasma cholesterol in HDL measurement (mass/volume)Ordered By: Piedad Han on 07-30-2024 Cholesterol in HDL [Mass/Vol] 42 mg/dL >40 [facility] Comment on above: National Cholesterol Education Program (NCEP) guidelines:<40 mg/dL: Low HDL-cholesterol (major risk factor for CHD)>= 60 mg/dL: High HDL-cholesterol (negative risk factor for CHD)HDL-cholesterol is affected by a number of factors, e.g. smoking, exercise, hormones, sex and age. Serum or plasma cholesterol measurement (mass/volume)Ordered By: Piedad Han on 07-30-2024 Cholesterol [Mass/Vol] 115 mg/dL <201 [facility] Comment on above: Cholesterol level, D esirable <200 mg/dLBorderline high cholesterol 200-239 mg/dLHigh cholesterol >=240 mg/dLRecommendations of the NCEP Adult Treatment Panel for the following risk-cutoff thresholds for the [place] population. Serum or plasma urea nitroge n measurement (mass/volume)Ordered By: Piedad Han on 07-30-2024 Urea nitrogen [Mass/Vol] 53 mg/dL High 4-19 [facility] Sodium levelOrdered By: Piedad Han on 07-30-2024 Sodium [Moles/Vol] 132 mmol/L Low 133-145 [facility] T4 Free Directon 07-30-2024 T4 FREE DIRECT 1.30 ng/dL Normal 0.76-1.46 [facility] Comment on above: Order Comment: Urine , Random Performed By: #### L 400.0001, L501.0900 #### [facility] [address] [place] [address]. [place], [address] T4 freeOrdered By: Piedad eubankser on 07-30-2024 Free T4 [Mass/Vol] 1.30 ng/dL 0.76-1.46 [facility] TSH DL <= 0.005 mIU/L QnOrde red By: Piedad Han on 07-30-2024 TSH Qn 1.530 uIU/mL 0.300-4.20 0 [facility] Thyroid Stim Hormone (TSH)on 07-30-2024 TSH 1.530 uIU/mL Normal 0.300-4.20 0 [facility] Comment on above: Order Comment: Urine , Random Performed By: #### L 400.0001, L501.0900 #### [facility] [address] [place], [address] Total proteinOrdered By: Zhang Han on 07-30-2024 Protein [Mass/Vol] 6.1 g/dL 5.9-8.4 [facility] Triglycerides measurementOrd ered By: Piedad Han on 07-30-2024 Triglyceride [Mass/Vol] 174 mg/dL <199 [facility] Comment on above: The drugs N-Acetylcy steine and Metamizole may falsely depress this assay. Normal range: <150 mg/dLBorderline High: 150-199 mg/dLHigh: 200-499 mg/dLVery High: >500 mg/dL Urine albumin measurement [facility] detection limit of 20 mg/L or less (mass/volume)Ordered By: Piedad Han on 07-30-2024 Albumin DL <= 20 mg/L (U) [Mass/Vol] 808.0 mg/L NO RANGE EST. [facility] Urine protein measurement (m ass/volume)Ordered By: Piedad Han on 07-30-2024 Protein (U) [Mass/Vol] 116.0 mg/dL High 0.0-12.0 [facility] Urine protein/creatinine mas s ratioOrdered By: Piedad Han on 07-30-2024 Protein/Creatinine (U) [Mass ratio] 3547 mg/g CRE High 0-200 [facility] Vitamin D,25 Hydroxyon 07-30 Vitamin D 25-OH 29.0 ng/mL Low 30-100 [facility] Comment on above: Order Comment: Order Date: 12/05/23 Order Info: [id number] - CBCD Result Comment: Marlee min D Status Deficiency: <20 ng/mL (50nmol/L) Insufficiency: 20-30 ng/mL (50-75 nmol/L) Sufficiency: 30-100 ng/mL (75-250 nmol/L) Toxicity: >100 ng/mL (>250 nmol/L) Performed By: #### L 501.9520, L500.4050, L500.4100, L501.5200, L100.0100, L501.9985 #### [facility] [address] [place], [address] White blood cell (WBC) count Ordered By: Piedad Han on 07-30-2024 WBC (Bld) [#/Vol] 6.3 10*3/uL 4.4-11.0 [facility] VINCENT Telephone (ENDIMT) -- GAMALIEL GRIFFIN ([id number]) 1955 Date Time Provider Department 07/18/24 MONICA HOYT During your visit today, we recorded the following information about you: Cynthia Obregon 07/18/2024 7:47 AM Signed Medical Services company he states that she sent the clinical notes but they were not signed.They are requesting from him that they are re sent over and signed. Please review and advise Erica Tan MA 07/18/2024 11:35 AM Signed Phone inside sales professional for [employer] for clarification. Phone messages reports multiple faxes sent. OCTAVIO Marc Brittney, RN 07/19/2024 9:47 AM Signed Email sent to [facility] rep, Risa García, to inquire on the status of Pt's account and order for his CGM sensors. Shasta Garsia RN July 19, 2024 9:47 AM Shasta Garsia RN 07/19/2024 2:01 PM Signed Electronically signed most recent OV note (addended by Monica Hoyt CNP previously) was faxed, once again, to [facility] at . Fax confirmation received. Shasta Garsia RN July 19, 2024 2:01 PM Erica Inman MA 07/22/2024 9:59 AM Signed Phoned [facility] rep Risa following up on faxes, emails and phone calls. Risa reports she is no longer in the same position but kindly agreed to check on the situation. Risa reports all information is valid and will be reviewed today. Erica Inman MA Allergies As of Date: 07/18/2024 Noted Allergy Reaction LISINOPRIL 09/30/2022 7 - Swelling Date Reviewed: 05/29/2024 Reviewed by: Erica Inman MA - Fully Assessed Reason for Visit: Orders [681] Cmt: CGM sensors Prescriptions as of 07/22/2024 - Blood-Glucose Sensor (FREESTYLE YAZMIN 3 PLUS SENSOR) kathleen CHANGE SENSOR EVERY 15 days. USE FOR CONTINUOUS GLUCOSE MONITORING. MULTIPLE INSULIN INJECTIONS E11.9 - Blood-Glucose Meter,Continuous (FREESTYLE YAZMIN 3 READER) [facility] [place] [facility] DISPENSE ONE READER KIT. USE FOR CONTINUOUS GLUCOSE MONITORING. MULTIPLE INSULIN INJECTIONS. E11.9 - insulin glargine (LANTUS SOLOSTAR U-100 INSULIN) 100 unit/mL (3 mL) Inject 25 units once daily - dapagliflozin propanediol (FARXIGA) 10 mg tablet Take 1 tablet by mouth daily with breakfast. - KERENDIA 20 mg tablet Take 20 mg by mouth once daily. - blood sugar diagnostic (TRUE METRIX GLUCOSE TEST STRIP) test strip Use as instructed to check blood sugar 4 times a day - insulin aspart U-100 (NOVOLOG FLEXPEN U-100 INSULIN) 100 unit/mL (3 mL) Inject 5 units with meals PLUS SS#1 - pre meal blood sugar only (1 unit for every 50 over 150 PRE MEAL) TDD 20 units - metoprolol succinate ER (TOPROL XL) 50 mg 24 hr tablet Take 1 tablet by mouth two times a day. - Insulin Union, Disposable, (BD ULTRA-FINE KENN PEN NEEDLE) 32 gauge x 5/32 Use to inject insulin 4 times a day - Lancets lancets Use as directed to check blood sugars 4 times a day - levothyroxine (SYNTHROID) 175 mcg tablet Take 150 mcg by mouth daily before breakfast. - OTC PRODUCT Stool softner daily - rosuvastatin (CRESTOR) 20 mg tablet Take 40 mg by mouth once daily. - amLODIPine (NORVASC) 10 mg tablet Take 10 mg by mouth once daily. - aspirin, enteric coated (ASPIRIN, ENTERIC COATED) 81 mg EC tablet Take 81 mg by mouth once daily. - allopurinol (ZYLOPRIM) 300 mg tablet Take 300 mg by mouth once daily. - buPROPion SR (ZYBAN SR; WELLBUTRIN SR) 150 mg 12 hr tablet Take 150 mg by mouth twice daily. Problem List As Of Date 07/18/2024 Noted Resolved Ischemic cardiomyopathy [I25.5] 01/10/2023 CAD (coronary artery disease) [I25.10] 01/10/2023 Hypertensive kidney disease with stage 3 chroni*01/10/2023 Essential hypertension [I10] 01/10/2023 Stage 3b chronic kidney disease (HCC) [N18.32] 01/10/2023 Type 2 diabetes mellitus with stage 3b chronic *01/10/2023 Discharge planning issues [Z75.8] 01/24/2023 Special screening for malignant neoplasms, colo*01/24/2023 Acute on chronic systolic congestive heart fail*01/26/2023 01/31/2023 HLD (hyperlipidemia) [E78.5] 01/26/2023 Hypothyroid [E03.9] 01/26/2023 Gout [M10.9] 01/26/2023 JESENIA (obstructive sleep apnea) [G47.33] 01/26/2023 Mitral regurgitation [I34.0] 01/26/2023 Coronary artery disease due to lipid rich plaqu*01/26/2023 ABLA (acute blood loss anemia) [D62] 01/28/2023 Thrombocytopenia (HCC) [D69.6] 01/28/2023 01/30/2023 Hypervolemia [E87.70] 01/28/2023 Hyperkalemia [E87.5] 01/28/2023 01/30/2023 Hyponatremia [E87.1] 01/28/2023 01/30/2023 Postoperative pain [G89.18] 01/30/2023 Atrial fibrillation with RVR (HCC) [I48.91] 01/30/2023 Insulin dose changed (HCC) [Z79.4] 01/30/2023 Chronic systolic congestive heart failure ([facility])*01/31/2023 Summary [Z91.89] 02/01/2023 Hyperparathyroidism ([facility]) [E21.3] 08/04/2023 Encounter Status:Closed by SHASTA GARSIA on 07/19/24 [facility] CNP[facility] Tele[facility] (AGCARDPOB ) -- GAMALIEL GRIFFIN ([id number]) 1955 M Date Time Provider Department 07/16/24 YESSENIA URIOSTEGUI AGCFLAKO During your visit today, we recorded the following information about you: Hermes Perez 07/16/2024 9:47 AM Signed Received referral from [facility]. Pt scheduled 09/04 with . Voicemail was unavailable. Letter sent Hermes Perez Allergies As of Date: 07/16/2024 Noted Allergy Reaction LISINOPRIL 09/30/2022 7 - Swelling Date Reviewed: 05/29/2024 Reviewed by: Erica Inman MA - Fully Assessed Prescriptions as of 07/16/2024 - Blood-Glucose Sensor (FREESTYLE YAZMIN 3 PLUS SENSOR) kathleen CHANGE SENSOR EVERY 15 days. USE FOR CONTINUOUS GLUCOSE MONITORING. MULTIPLE INSULIN INJECTIONS E11.9 - Blood-Glucose Meter,Continuous (FREESTYLE YAZMIN 3 READER) [facility] [place] [facility] DISPENSE ONE READER KIT. USE FOR CONTINUOUS GLUCOSE MONITORING. MULTIPLE INSULIN INJECTIONS. E11.9 - insulin glargine (LANTUS SOLOSTAR U-100 INSULIN) 100 unit/mL (3 mL) Inject 25 units once daily - dapagliflozin propanediol (FARXIGA) 10 mg tablet Take 1 tablet by mouth daily with breakfast. - KERENDIA 20 mg tablet Take 20 mg by mouth once daily. - blood sugar diagnostic (TRUE METRIX GLUCOSE TEST STRIP) test strip Use as instructed to check blood sugar 4 times a day - insulin aspart U-100 (NOVOLOG FLEXPEN U-100 INSULIN) 100 unit/mL (3 mL) Inject 5 units with meals PLUS SS#1 - pre meal blood sugar only (1 unit for every 50 over 150 PRE MEAL) TDD 20 units - metoprolol succinate ER (TOPROL XL) 50 mg 24 hr tablet Take 1 tablet by mouth two times a day. - Insulin Union, Disposable, (BD ULTRA-FINE KENN PEN NEEDLE) 32 gauge x 532 Use to inject insulin 4 times a day - Lancets lancets Use as directed to check blood sugars 4 times a day - levothyroxine (SYNTHROID) 175 mcg tablet Take 150 mcg by mouth daily before breakfast. - OTC PRODUCT Stool softner daily - rosuvastatin (CRESTOR) 20 mg tablet Take 40 mg by mouth once daily. - amLODIPine (NORVASC) 10 mg tablet Take 10 mg by mouth once daily. - aspirin, enteric coated (ASPIRIN, ENTERIC COATED) 81 mg EC tablet Take 81 mg by mouth once daily. - allopurinol (ZYLOPRIM) 300 mg tablet Take 300 mg by mouth once daily. - buPROPion SR (ZYBAN SR; WELLBUTRIN SR) 150 mg 12 hr tablet Take 150 mg by mouth twice daily. Problem List As Of Date 07/16/2024 Noted Resolved Ischemic cardiomyopathy [I25.5] 01/10/2023 CAD (coronary artery disease) [I25.10] 01/10/2023 Hypertensive kidney disease with stage 3 chroni*01/10/2023 Essential hypertension [I10] 01/10/2023 Stage 3b chronic kidney disease (HCC) [N18.32] 01/10/2023 Type 2 diabetes mellitus with stage 3b chronic *01/10/2023 Discharge planning issues [Z75.8] 01/24/2023 Special screening for malignant neoplasms, colo*01/24/2023 Acute on chronic systolic congestive heart fail*01/26/2023 01/31/2023 HLD (hyperlipidemia) [E78.5] 01/26/2023 Hypothyroid [E03.9] 01/26/2023 Gout [M10.9] 01/26/2023 JESENIA (obstructive sleep apnea) [G47.33] 01/26/2023 Mitral regurgitation [I34.0] 01/26/2023 Coronary artery disease due to lipid rich plaqu*01/26/2023 ABLA (acute blood loss anemia) [D62] 01/28/2023 Thrombocytopenia (HCC) [D69.6] 01/28/2023 01/30/2023 Hypervolemia [E87.70] 01/28/2023 Hyperkalemia [E87.5] 01/28/2023 01/30/2023 Hyponatremia [E87.1] 01/28/2023 01/30/2023 Postoperative pain [G89.18] 01/30/2023 Atrial fibrillation with RVR (HCC) [I48.91] 01/30/2023 Insulin dose changed (HCC) [Z79.4] 01/30/2023 Chronic systolic congestive heart failure (HCC)*01/31/2023 Summary [Z91.89] 02/01/2023 Hyperparathyroidism (HCC) [E21.3] 08/04/2023 Encounter Status:Closed by HERMES PEREZ on 07/16/24 [facility] Cardiology Visit Reporton Cardiology Visit Report [facility] [address] [facility] [address] [facility] [place] [address] OFFICE VISIT Date of Service: 07/12/24 MR#: [id number] Acct: [id number] Name: GAMALIEL GRIFFIN Rep #: [id number] : 1955 Provider: SUSHMA Alejandro Age/Sex: 68/M [place] [facility] [place] Status: Signed HPI HPI History of Present Illness Details: Gamaliel Griffin is a 68-year-old male who presents to office today for monitoring of his cardiovascular health. Patient has a known history of coronary artery disease status post remote anteroseptal microinfarction back in 2008 where he received stents to the LAD. He also had stents staged to the right posterior descending artery and right posterior ventricular branch. His EF at that time was 45%. His original chest discomfort was severe chest pains. He subsequently developed profound fatigability when he was working out with his [employer] to the point that he just could not recover after his workouts. This led to an evaluation and heart catheterization in 2022. In January 2023 the patient underwent coronary bypass graft surgery receiving a SULLIVAN to the LAD a vein graft to the right PDA and OM 2 branch of the circumflex and a left radial graft to the ramus branch of the circumflex. His ejection fraction had dropped to 25%. His EF was reevaluated March 2024 and his EF was still 25% with severe hypokinesis of the anterior wall septum and apex. He also had hypokinesis of the inferior and lateral ospina. There was trivial mitral regurgitation the LV was mildly dilated. Patient was seen 06/07/2024. It was recommended to treat his low ejection fraction with hydralazine and nitrates given his kidney disease. Upon discussion between our office and patient, patient was hesitant on medication changes given that he has tried these in the past and feels they were discontinued for some reason. It was determined that documentation from [facility] cardiology dating 01/03/2024 Patient is somewhat confused on his current medications this morning and will be messaging me the exact dosages and will fine-tune this medication. He is having some occasional hypotensive symptoms and most likely will be stopping the isosorbide and hydralazine and simplifying his metoprolol to once a day. Patient followed up 06/21/2024 and was initiated on hydralazine and nitrate. He presented to office 07/01/2024 with concerns of low pulse on self check earlier that day. EKG demonstrated paroxysmal atrial tachycardia with a normal rate. A 24-hour holter monitor was ordered to further assess this. THis has been completed but has not been read by the recooperer yet. Upon presentation today, patient reports feeling a little better now that he is working 30-hours per week and has time to maintain routine exercise. He did notice increased anxiety over the last 2 weeks while trying to figure these details out with his employer. He has ongoing fatigue that he notices in the evening. He reports occasional episodes where he loses his balance but denies associate dizziness, lightheadedness, near syncope or syncope. His b/l LE edema is unchanged from prior. He reports his SOB is slightly improved. Further ROS below. Intake Vital Signs 06/21/24 15:29 07/12/24 14:56 Height 5 ft 9 in 5 ft 9 in Weight: 183 lb 189 lb BMI 27.0 27.8 BP 148/72 H 128/63 H Blood Pressure Location Lt brachial Lt brachial Position Sitting Sitting Respiration 16 18 Pulse 48 L 50 L Pulse Source NIBP NIBP Intake Visit Reasons: 2 WK [employer] Project Manager Required: No Accompanied by: Self Is patient in pain?: No Allergies lisinopril Adverse Reaction (Intermediate, Verified 07/12/24 14:57) Swelling Medications ???Medication ???Instructions ???Recorded ???Confirmed ???Type allopurinol 300 mg tablet 300 mg PO DAILY 09/30/22 07/12/24 History aspirin 81 mg tablet,delayed 81 mg PO DAILY 09/30/22 07/12/24 H istory release bupropion HCl 150 mg tablet,12 hr 150 mg PO BID 09/30/22 07/12/24 H istory sustained-release (Wellbutrin SR) levothyroxine 175 mcg tablet 175 mcg PO DAILY 09/30/22 07/12/24 History dapagliflozin propanediol 10 mg 10 mg PO DAILY 10/11/22 07/12/24 H istory tablet (Farxiga) amlodipine 10 mg tablet 10 mg PO QDAY 06/07/24 07/12/24 Hi story finerenone 10 mg tablet (Kerendia) 20 mg PO BID 06/07/24 07/12/24 H istory insulin glargine 100 unit/mL (3 25 unit subcut QAM 06/07/24 History mL) subcutaneous pen (Lantus Solostar U-100 Insulin) metoprolol succinate 50 mg 50 mg PO BID 06/07/24 07/12/24 His tory tablet,extended release 24 hr polyethylene glycol 3350 17 17 g PO QDAY 06/07/24 07/12/24 His tory gram/dose oral powder (Miralax) rosuvastatin 40 mg tablet 40 mg PO QHS 06/07/24 07/12/24 His tory cholecalciferol (vitamin D3) 50 50 mcg PO QD (more content not included)... Normal [facility] 12 Lead EKG performed by [facility] on 07-01-2024 12 Lead EKG performed by [facility] [address] [place] [address] 12 Lead EKG performed by [facility] 07/01/24 1034 MR#: [id number] Acct: [id number] Name: GAMALIEL GRIFFIN Rep #: [id number] : 1955 68 From: Roman ORDAZ Attending Dr: SUSHMA Alejandro Status: DEP AM B Ordering Dr: Roman Pham Date: 07/01/24 [place]: [facility] Sex: M C Admitted: BMS/12 Lead EKG performed by [facility] ECG Report Interpretation Sinus Rhythm with Paroxysmal Atrial Tachycardia -Poor R-wave progression -may be secondary to pulmonary disease consider old anterior infarct. - Nonspecific T-abnormality. Low voltage -possible pulmonary disease. ABNORMAL Electronically signed on 07/03/2024 at 12:[address] Gilmer Vásquez Software Version 8610 07/03/24 1212 Date Roman ORDAZ CC: Dr. Piedad Han MD Date Dictated: 07/01/24 103 Date Transcribed: 07/01/241033 Drywall Installer: CHRISTI Signed [facility] 07-01-2024 [facility] Telephone (ENWSTR) -- GAMALIEL GRIFFIN ([id number]) 1955 M Date Time Provider Department 07/01/24 MONICA HOYT During your visit today, we recorded the following information about you: Shasta Garsia, HANG 07/01/2024 10:24 AM Signed Addended OV notes indicating Pt compliance with CGM use faxed to [facility] for existing order, along with most recent 2 week CGM download report. Fax confirmation received. Shasta Garsia RN July 01, 2024 10:24 AM Allergies As of Date: 07/01/2024 Noted Allergy Reaction LISINOPRIL 09/30/2022 7 - Swelling Date Reviewed: 05/29/2024 Reviewed by: Erica Inman MA - Fully Assessed Reason for Visit: Addended OV Notes to DME [Other] Prescriptions as of 07/01/2024 - Blood-Glucose Sensor (FREESTYLE YAZMIN 3 PLUS SENSOR) kathleen CHANGE SENSOR EVERY 15 days. USE FOR CONTINUOUS GLUCOSE MONITORING. MULTIPLE INSULIN INJECTIONS E11.9 - Blood-Glucose Meter,Continuous (FREESTYLE YAZMIN 3 READER) [facility] DISPENSE ONE READER KIT. USE FOR CONTINUOUS GLUCOSE MONITORING. MULTIPLE INSULIN INJECTIONS. E11.9 - insulin glargine (LANTUS SOLOSTAR U-100 INSULIN) 100 unit/mL (3 mL) Inject 25 units once daily - dapagliflozin propanediol (FARXIGA) 10 mg tablet Take 1 tablet by mouth daily with breakfast. - KERENDIA 20 mg tablet Take 20 mg by mouth once daily. - blood sugar diagnostic (TRUE METRIX GLUCOSE TEST STRIP) test strip Use as instructed to check blood sugar 4 times a day - insulin aspart U-100 (NOVOLOG FLEXPEN U-100 INSULIN) 100 unit/mL (3 mL) Inject 5 units with meals PLUS SS#1 - pre meal blood sugar only (1 unit for every 50 over 150 PRE MEAL) TDD 20 units - metoprolol succinate ER (TOPROL XL) 50 mg 24 hr tablet Take 1 tablet by mouth two times a day. - Insulin Union, Disposable, (BD ULTRA-FINE KENN PEN NEEDLE) 32 gauge x 5/32 Use to inject insulin 4 times a day - Lancets lancets Use as directed to check blood sugars 4 times a day - levothyroxine (SYNTHROID) 175 mcg tablet Take 150 mcg by mouth daily before breakfast. - OTC PRODUCT Stool softner daily - rosuvastatin (CRESTOR) 20 mg tablet Take 40 mg by mouth once daily. - amLODIPine (NORVASC) 10 mg tablet Take 10 mg by mouth once daily. - aspirin, enteric coated (ASPIRIN, ENTERIC COATED) 81 mg EC tablet Take 81 mg by mouth once daily. - allopurinol (ZYLOPRIM) 300 mg tablet Take 300 mg by mouth once daily. - buPROPion SR (ZYBAN SR; WELLBUTRIN SR) 150 mg 12 hr tablet Take 150 mg by mouth twice daily. Problem List As Of Date 07/01/2024 Noted Resolved Ischemic cardiomyopathy [I25.5] 01/10/2023 CAD (coronary artery disease) [I25.10] 01/10/2023 Hypertensive kidney disease with stage 3 chroni*01/10/2023 Essential hypertension [I10] 01/10/2023 Stage 3b chronic kidney disease (HCC) [N18.32] 01/10/2023 Type 2 diabetes mellitus with stage 3b chronic *01/10/2023 Discharge planning issues [Z75.8] 01/24/2023 Special screening for malignant neoplasms, colo*01/24/2023 Acute on chronic systolic congestive heart fail*01/26/2023 01/31/2023 HLD (hyperlipidemia) [E78.5] 01/26/2023 Hypothyroid [E03.9] 01/26/2023 Gout [M10.9] 01/26/2023 JESENIA (obstructive sleep apnea) [G47.33] 01/26/2023 Mitral regurgitation [I34.0] 01/26/2023 Coronary artery disease due to lipid rich plaqu*01/26/2023 ABLA (acute blood loss anemia) [D62] 01/28/2023 Thrombocytopenia (HCC) [D69.6] 01/28/2023 01/30/2023 Hypervolemia [E87.70] 01/28/2023 Hyperkalemia [E87.5] 01/28/2023 01/30/2023 Hyponatremia [E87.1] 01/28/2023 01/30/2023 Postoperative pain [G89.18] 01/30/2023 Atrial fibrillation with RVR (HCC) [I48.91] 01/30/2023 Insulin dose changed (HCC) [Z79.4] 01/30/2023 Chronic systolic congestive heart failure (HCC)*01/31/2023 Summary [Z91.89] 02/01/2023 Hyperparathyroidism (HCC) [E21.3] 08/04/2023 Encounter Status:Closed by SHASTA GARSIA on 07/01/24 Normal [facility] Office Visit Reporton 2024 Office Visit Report [facility] [address] [place] [address] OFFICE VISIT Date of Service: 07/01/24 MR#: [id number] Acct: [id number] Patient: GAMALIEL GRIFFIN Rep #: [id number] : 1955 Provider: SUSHMA Alejandro Age/Sex: 68/M Location[place] [facility] Status: Signed Agree with nurse's documentation. Intake Vital Signs 06/21/24 15:29 Height 5 ft 9 in Weight: 183 lb BMI 27.0 BP 148/72 H Blood Pressure Location Lt brachial Position Sitting Respiration 16 Pulse 48 L Pulse Source NIBP Intake Visit Reasons: My heart rate is 30 (feels double beats) Allergies lisinopril Adverse Reaction (Intermediate, Verified 06/21/24 15:29) Swelling Have you fallen in the past year?: No Nursing Note Patient states he took his pulse today and noticed it was around 30 BPM. Denies lightheadedness, dizziness, or syncope. States he feels off. He states his anxiety is worse because he's been worried about his heart rate. EKG done and results reviewed with SD. She would like to order a 24 hour holter monitor. Further recommendations will be made once those results are back. Continue with current medications. Patient has an appt with SD on 07/05/24. If results aren't back by then, appointment will be moved to the following week per [place]. Patient verbalized understanding and will call to schedule holter monitor. Assessment and Plan Assessment and Plan Orders: Orders 12 Lead EKG performed by [facility] 07/01/24 I25.10 - Atherosclerotic heart disease of [place] coronary artery without angina pectoris Clinical Quality Measures Falls Risk Screening/Assistive Devices Have you fallen in the past year?: No 07/09/24 0851 Date Roman ORDAZ Cosigner Signature: Date (if applicable) CC: Normal [facility] Cardiology Visit Reporton Cardiology Visit Report [facility] [address] [place] [address] OFFICE VISIT Date of Service: 06/21/24 MR#: [id number] Acct: [id number] Name: GAMALIEL GRIFFIN Rep #: [id number] : 1955 Provider: SUSHMA Alejandro Age/Sex: 68/M Location: [facility] Status: Signed HPI HPI History of Present Illness Details: Gamaliel Griffin is a 68-year-old male who presents to office today for monitoring of his cardiovascular health. Patient has a known history of coronary artery disease status post remote anteroseptal microinfarction back in 2008 where he received stents to the LAD. He also had stents staged to the right posterior descending artery and right posterior ventricular branch. His EF at that time was 45%. His original chest discomfort was severe chest pains. He subsequently developed profound fatigability when he was working out with his [employer] to the point that he just could not recover after his workouts. This led to an evaluation and heart catheterization in 2022. In January 2023 the patient underwent coronary bypass graft surgery receiving a SULLIVAN to the LAD a vein graft to the right PDA and OM 2 branch of the circumflex and a left radial graft to the ramus branch of the circumflex. His ejection fraction had dropped to 25%. His EF was reevaluated March 2024 and his EF was still 25% with severe hypokinesis of the anterior wall septum and apex. He also had hypokinesis of the inferior and lateral ospina. There was trivial mitral regurgitation the LV was mildly dilated. Upon presentation to office today, patient reports ongoing fatigue and weakness that is described as noticing decrease in energy afternoon and by the end of the day, he feels he has no motivation. This has been ongoing for 4-5 months. Patient reports ongoing dizziness that is unchanged, most noticeable in the dark. Bilateral lower extremity edema is chronic and unchanged. Patient reports he notices shortness of breath with activity within the first 5 minutes of starting the activity; however, his symptom improved without needing to take a break. Further ROS below. Patient was seen 06/07/2024. It was recommended to treat his low ejection fraction with hydralazine and nitrates given his kidney disease. Upon discussion between our office and patient, patient was hesitant on medication changes given that he has tried these in the past and feels they were discontinued for some reason. It was determined that documentation from [facility] cardiology dating 01/03/2024 Patient is somewhat confused on his current medications this morning and will be messaging me the exact dosages and will fine-tune this medication. He is having some occasional hypotensive symptoms and most likely will be stopping the isosorbide and hydralazine and simplifying his metoprolol to once a day. Patient was recommended to present to office today to further discuss GDMT. 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 Required: No Accompanied by: Self Is patient in pain?: No Allergies lisinopril Adverse Reaction (Intermediate, Verified 06/21/24 15:29) Swelling Medications ???Medication ???Instructions ???Recorded ???Confirmed ???Type allopurinol 300 mg tablet 300 mg PO DAILY 09/30/22 06/21/24 History aspirin 81 mg tablet,delayed 81 mg PO DAILY 09/30/22 06/21/24 H istory release bupropion HCl 150 mg tablet,12 hr 150 mg PO BID 09/30/22 06/21/24 H istory sustained-release (Wellbutrin SR) levothyroxine 175 mcg tablet 175 mcg PO DAILY 09/30/22 06/21/24 History dapagliflozin propanediol 10 mg 10 mg PO DAILY 10/11/22 06/21/24 H istory tablet (Farxiga) amlodipine 10 mg tablet 10 mg PO QDAY 06/07/24 06/21/24 Hi story finerenone 10 mg tablet (Kerendia) 20 mg PO BID 06/07/24 06/21/24 H istory insulin glargine 100 unit/mL (3 25 unit subcut QAM 06/07/24 History mL) subcutaneous pen (Lantus Solostar U-100 Insulin) metoprolol succinate 50 mg 50 mg PO BID 06/07/24 06/21/24 His tory tablet,extended release 24 hr polyethylene glycol 3350 17 17 g PO QDAY 06/07/24 06/21/24 His tory gram/dose oral powder (Miralax) rosuvastatin 40 mg tablet 40 mg PO QHS 06/07/24 06/21/24 His tory cholecalciferol (vitamin D3) 50 50 mcg PO QDAY 06/21/24 06/21/24 H istory mcg (2,000 unit) capsule hydralazine 10 mg tablet 10 mg PO TID #90 tabs 06/21/2411/07 Rx insulin aspart U-100 100 unit/mL 20 unit subcut TID 06/21 (more content not included)... Normal [facility] Thyroglobulin w/Anti-TG ABon 06-20-2024 Anti-TG AB 1.3 IU/mL High 0.0-0.9 [facility] Comment on above: Result Comment: Thyr oglobulin Antibody measured by [facility] Methodology It should be noted that the presence of thyroglobulin antibodies may not be pathogenic nor diagnostic, especially at very low levels. The assay floor steward/stewardess has found that four percent of individuals without evidence of thyroid disease or autoimmunity will have positive TgAb levels up to 4 IU/mL. Performed By: #### L 501.9520, L500.4050, L500.4100, L501.5200, L100.0100, L501.9985 #### [facility] [address] [place], [address] TG-JULIAN 2.6 ng/mL Normal . [facility] Comment on above: Result Comment: This test was developed and its performance characteristics determined by [facility]. It has not been cleared or approved by the Food and Drug Administration. Reference Range: Pubertal Children and Adults: <40 According to the National Academy of Clinical Biochemistry, the reference interval for Thyroglobulin (TG) should be related to euthyroid patients and not for patients who underwent thyroidectomy. TG reference intervals for these patients depend on the residual mass of the thyroid tissue left after surgery. Establishing a post-operative baseline is recommended. The assay quantitation limit is 2.0 ng/mL. Performed By: #### L 501.9520, L500.4050, L500.4100, L501.5200, L100.0100, L501.9985 #### [facility] [address] [facility] [address] Thyroid Peroxidase ABon 05-0 THYR PEROX AB 12 IU/mL Normal 0-34 [facility] Comment on above: Result Comment: Perf ormed at: CB - [facility] [address] [id number] Building Equipment Inspector: Conrad Whtiten PhD, Phone: [phone] Performed at: [facility] [address] [place] [id number] Building Equipment Inspector: Papo Carpenter MD, Phone: [phone] Performed By: #### L 501.9520, L500.4050, L500.4100, L501.5200, L100.0100, L501.9985 #### [facility] [address] [place], [place], [address] Cardiology Visit Reporton Cardiology Visit Report [facility] [address] [place] [address] OFFICE VISIT Date of Service: 06/07/24 MR#: [id number] Acct: [id number] Name: GAMALIEL GRIFFIN Rep #: [id number] : 1955 Provider: Dr. Gilmer galicia MD Age/Sex: 68/M Location[place] [facility] Status: Signed HPI HPI History of Present Illness Details: Patient is a 68-year-old white male that comes in today to [facility] [facility] Patient has a known history of coronary artery disease status post remote anteroseptal microinfarction back in 2008 where he received stents to the LAD. He also had stents staged to the right posterior descending artery and right posterior ventricular branch his EF at that time was 45%. His original chest discomfort was severe chest pains. He subsequently developed profound fatigability when he was working out with his [employer] to the point that he just could not recover after his workouts. This led to an evaluation and heart catheterization in 2022. In January 2023 the patient underwent coronary bypass graft surgery receiving a SULLIVAN to the LAD a vein graft to the right PDA and OM 2 branch of the circumflex and a left radial graft to the ramus branch of the circumflex. His ejection fraction had dropped to 25%. His EF was reevaluated March 2024 and his EF was still 25% with severe hypokinesis of the anterior wall septum and apex. He also had hypokinesis of the inferior and lateral ospina. There was trivial mitral regurgitation the LV was mildly dilated. Currently the patient works out with his [employer] 2 or 3 days a week and walks 2 or 3 days a week. After his walks or his workout he is significantly fatigued but he does recover slowly. 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 And he has noted some daytime somnolence but he is also suffering with chronic kidney disease managed by Dr. Barrios. He is drinking significant amount of water and having to urinate multiple times during the night which disturbs his sleep pattern. The patient is also diabetic on insulin with a hemoglobin A1c monitored through the [facility] RN team at 6.6. The patient also has hypertension and reports that this is well-controlled in his home environment and he is hyperlipidemic well-controlled on therapy. 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 It is mandatory that this patient stay in an aerobic exercise program to maintain toning of his skeletal muscles due to his severe LV dysfunction. His late afternoon progressive fatigue is highly likely related to his LV dysfunction. The patient is intolerant to [place] inhibitors he is on amlodipine for his blood pressure as well as Farxiga, Kerendia, metoprolol succinate 50 mg twice daily. The patient is not on Lasix. He does have some peripheral edema which has been present even before his renal insufficiency became more prominent. 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 Required: No Accompanied by: Self Is patient in pain?: No Allergies lisinopril Adverse Reaction (Intermediate, Verified 06/07/24 15:23) Swelling Medications ???Medication ???Instructions ???Recorded ???Confirmed ???Type allopurinol 300 mg tablet 300 mg PO DAILY 09/30/22 06/07/24 History aspirin 81 mg tablet,delayed 81 mg PO DAILY 09/30/22 06/07/24 H istory release bupropion HCl 150 mg tablet,12 hr 150 mg PO BID 09/30/22 06/07/24 H istory sustained-release (Wellbutrin SR) levothyroxine 175 mcg tablet 175 mcg PO DAILY 09/30/22 06/07/24 History dapagliflozin propanediol 10 mg 10 mg PO DAILY 10/11/22 06/07/24 H istory tablet (Farxiga) amlodipine 10 mg tablet 10 mg PO QDAY 06/07/24 06/07/24 Hi story finerenone 10 mg tablet (Kerendia) 20 mg PO BID 06/07/24 06/07/24 H istory insulin aspart U-100 100 unit/mL 9 unit subcut TID 06/07/2406/07/ 5 History (3 mL) subcutaneous pen (Novolog FlexPen U-100 Insulin aspart) insulin glargine 100 unit/mL (3 25 unit subcut QAM 06/07/24 History mL) subcutaneous pen (Lantus Solostar U-100 Insulin) metoprolol succinate 50 mg 50 mg PO BID 06/07/24 06/07/24 His tory tablet,extended release 24 hr polyethylene glycol 3350 17 17 g PO QDAY 06/07/24 06/07/24 His tory gram/dose oral powder (Miralax) rosuvastatin 40 mg tablet 40 mg PO QHS 06/07/24 06/07/24 His tory Ejection fraction %: 25 (more content not included)... Normal [facility] Serum or plasma thyroperoxid ase antibody assay (units/volume)Ordered By: Piedad Han on 06-07-2024 TPO Ab Qn 12 [IU]/mL 0-34 [facility] Comment on above: Performed at: CB - [facility], [place] [id number] Director: Conrad Whitten PhD, Phone: [phone] at: ES - [facility] [address] [place], [place] [id number] Director: Papo Carpenter MD, Phone: [phone] T4 Free Directon 06-07-2024 T4 FREE DIRECT 0.90 ng/dL Normal 0.76-1.46 [facility] Comment on above: Order Comment: Order Date: 12/05/23 Order Info: [id number] - A1C Performed By: #### L 501.9520, L500.4050, L500.4100, L501.5200, L100.0100, L501.9985 #### [facility] [place], [address] T4 freeOrdered By: Piedad vale on 06-07-2024 Free T4 [Mass/Vol] 0.90 ng/dL 0.76-1.46 [facility] Thyroglobulin measurement by radioimmunoassay (JULIAN)Ordered By: Piedad Han on 06-07-2024 Thyroglobulin Ab JULIAN Qn (S) 2.6 ng/mL . [facility] Comment on above: This test was develo ped and its performance characteristicsdetermined by [facility]. It has not been cleared or approvedby the Food and Drug Administration.Reference Range:Pubertal Childrenand Adults: <40According to the National Academy of Clinical Biochemistry,the reference interval for Thyroglobulin (TG) should berelated to euthyroid patients and not for patients whounderwent thyroidectomy. TG reference intervals for thesepatients depend on the residual mass of the thyroid tissueleft after surgery. Establishing a post-operative baselineis recommended. The assay quantitation limit is 2.0 ng/mL. T4 Free Directon 06-05-2024 T4 FREE DIRECT 1.00 ng/dL Normal 0.76-1.46 [facility] Comment on above: Order Comment: CLEAN CATCH Performed By: #### L 400.0001 #### [facility] [address] [place], [place], [id number] Absolute lymphocyte countOrd ered By: Piedad Han on 06-04-2024 Lymphocytes Auto (Unsp spec) [#/Vol] 1.35 10*3/uL 0.83-4.51 [facility] Absolute neutrophil countOrd ered By: Piedad Han on 06-04-2024 Neutrophils (Bld) [#/Vol] 6.2 10*3/uL 2.0-7.7 [facility] Anion gap in Serum or Plasma Ordered By: Piedad Han on 06-04-2024 Anion gap [Moles/Vol] 11 mmol/L 5-15 [facility] Automated lymphocyte count a s percentage of total leukocytesOrdered By: Piedad Han on 06-04-2024 Lymphocytes/100 WBC Auto (Unsp spec) 15.7 % Low 19-41 [facility] BUN/creatinine ratioOrdered By: Piedad Han on 06-04-2024 Urea nitrogen/Creatinine [Mass ratio] 20.5 mg/mg High 10-20 [facility] Basophil percentageOrdered B y: Piedad Han on 06-04-2024 Basophils/100 WBC (Bld) 0.5 % 0-1 [facility] Bilirubin Test strip Ql (U)O rdered By: Piedad Han on 06-04-2024 Bilirubin Ql (U) Negative Negative [facility] Bilirubin, totalOrdered By: Piedad Han on 06-04-2024 Bilirubin [Mass/Vol] 0.19 mg/dL 0.00-1.30 [facility] CBC W/Diff, Automatedon 05-15 Absolute Lymph 1.35 X10 3/uL Normal 0.83-4.51 [facility] Comment on above: Order Comment: Order Date: 12/05/23 Order Info: [id number] - CBCD Performed By: #### L 501.9520, L500.4050, L500.4100, L501.5200, L100.0100, L501.9985 #### [facility] [address] [place], [address] Absolute Neut 6.2 X10 3/uL Normal 2.0-7.7 [facility] Comment on above: Order Comment: Order Date: 12/05/23 Order Info: 018- - CBCD Performed By: #### L 501.9520, L500.4050, L500.4100, L501.5200, L100.0100, L501.9985 #### [facility] [address] [place], [address] Basophils/100 WBC (Bld) 0.5 % Normal 0-1 [facility] Comment on above: Order Comment: Order Date: 12/05/23 Order Info: 018- - CBCD Performed By: #### L 501.9520, L500.4050, L500.4100, L501.5200, L100.0100, L501.9985 #### [facility] [address] [place], [address] Eosinophils/100 WBC (Bld) 4.8 % Normal 0-5 [facility] Comment on above: Order Comment: Order Date: 12/05/23 Order Info: 018- - CBCD Performed By: #### L 501.9520, L500.4050, L500.4100, L501.5200, L100.0100, L501.9985 #### [facility] [address] [place], [address] Erythrocyte distribution width (RBC) [Ratio] 13.2 % Normal 11.6-14.6 [facility] Comment on above: Order Comment: Order Date: 12/05/23 Order Info: 018- - CBCD Performed By: #### L 501.9520, L500.4050, L500.4100, L501.5200, L100.0100, L501.9985 #### [facility] [address] [place], [address] Hematocrit (Bld) [Volume fraction] 40.7 % Normal 40-54 [facility] Comment on above: Order Comment: Order Date: 12/05/23 Order Info: 0184-1 - CBCD Performed By: #### L 501.9520, L500.4050, L500.4100, L501.5200, L100.0100, L501.9985 #### [facility] [address] [place], [address] Hemoglobin (Bld) [Mass/Vol] 13.2 g/dL Normal 13.0-16.5 [facility] Comment on above: Order Comment: Order Date: 12/05/23 Order Info: 0184- - CBCD Performed By: #### L 501.9520, L500.4050, L500.4100, L501.5200, L100.0100, L501.9985 #### [facility] [address] [place], [address] IG% 0.600 Normal 0.0-0.9 [facility] Comment on above: Order Comment: Order Date: 12/05/23 Order Info: 0184-1 - CBCD Result Comment: IG% - Immature Granulocytes (promyelocytes, myelocytes and metamyelocytes) > 1% indicates that a LEFT SHIFT is Present. Performed By: #### L 501.9520, L500.4050, L500.4100, L501.5200, L100.0100, L501.9985 #### [facility] [address] [place], [address] Lymphocytes/100 WBC (Bld) 15.7 % Low 19-41 [facility] Comment on above: Order Comment: Order Date: 12/05/23 Order Info: 0184-1 - CBCD Performed By: #### L 501.9520, L500.4050, L500.4100, L501.5200, L100.0100, L501.9985 #### [facility] [address] [place], [address] MCH (RBC) [Entitic mass] 30.8 pg Normal 27.0-32.0 [facility] Comment on above: Order Comment: Order Date: 12/05/23 Order Info: 0184-1 - CBCD Performed By: #### L 501.9520, L500.4050, L500.4100, L501.5200, L100.0100, L501.9985 #### [facility] [address] [place], [address] MCHC (RBC) [Mass/Vol] 32.4 g/dL Normal 32-36 [facility] Comment on above: Order Comment: Order Date: 12/05/23 Order Info: 0184-1 - CBCD Performed By: #### L 501.9520, L500.4050, L500.4100, L501.5200, L100.0100, L501.9985 #### [facility] [address] [place], [address] MCV (RBC) [Entitic vol] 94.9 fL High 80-94 [facility] Comment on above: Order Comment: Order Date: 12/05/23 Order Info: 0184-1 - CBCD Performed By: #### L 501.9520, L500.4050, L500.4100, L501.5200, L100.0100, L501.9985 #### [facility] [address] [place], [address] Monocytes/100 WBC (Bld) 6.5 % Normal 0-10 [facility] Comment on above: Order Comment: Order Date: 12/05/23 Order Info: 0184-1 - CBCD Performed By: #### L 501.9520, L500.4050, L500.4100, L501.5200, L100.0100, L501.9985 #### [facility] [address] [place], [address] Neutrophils/100 WBC (Bld) 71.9 % High 47-70 [facility] Comment on above: Order Comment: Order Date: 12/05/23 Order Info: 0184-1 - CBCD Performed By: #### L 501.9520, L500.4050, L500.4100, L501.5200, L100.0100, L501.9985 #### [facility] [address] [place], [address] Nucleated RBC (Bld) [#/Vol] 0 10*3/uL Normal 0-5 [facility] Comment on above: Order Comment: Order Date: 12/05/23 Order Info: 0184-1 - CBCD Performed By: #### L 501.9520, L500.4050, L500.4100, L501.5200, L100.0100, L501.9985 #### [facility] [address] [place], [address] Platelet mean volume (Bld) [Entitic vol] 8.5 fL Normal 6.2-12.0 [facility] Comment on above: Order Comment: Order Date: 12/05/23 Order Info: 0184-1 - CBCD Performed By: #### L 501.9520, L500.4050, L500.4100, L501.5200, L100.0100, L501.9985 #### [facility] [address] [place], [address] Platelets (Bld) [#/Vol] 207 10*3/uL Normal 150-450 [facility] Comment on above: Order Comment: Order Date: 12/05/23 Order Info: 0184-1 - CBCD Performed By: #### L 501.9520, L500.4050, L500.4100, L501.5200, L100.0100, L501.9985 #### [facility] [address] [place], [address] RBC (Bld) [#/Vol] 4.29 10*6/uL Low 4.6-6.2 [facility] Comment on above: Order Comment: Order Date: 12/05/23 Order Info: 0184-1 - CBCD Performed By: #### L 501.9520, L500.4050, L500.4100, L501.5200, L100.0100, L501.9985 #### [facility] [address] [place], [place], [id number] RDW SD 44.7 fl High 35.1-43.9 [facility] Comment on above: Order Comment: Order Date: 12/05/23 Order Info: 0184-1 - CBCD Performed By: #### L 501.9520, L500.4050, L500.4100, L501.5200, L100.0100, L501.9985 #### [facility] [address] [place], [place], [id number] WBC (Bld) [#/Vol] 8.6 10*3/uL Normal 4.4-11.0 [facility] Comment on above: Order Comment: Order Date: 12/05/23 Order Info: 0184-1 - CBCD Performed By: #### L 501.9520, L500.4050, L500.4100, L501.5200, L100.0100, L501.9985 #### [facility] [address] [place], [place], [address] Calculated very low density lipoprotein (VLDL) cholesterol measurementOrdered By: Piedad Han on 06-04-2024 Calculated very low density lipoprotein (VLDL) cholesterol measurement 33 mg/dL 5-40 [facility] Carbon dioxide, total [Moles /volume] in Central venous bloodOrdered By: Piedad Han on 06-04-2024 CO2 [Moles/Vol] 23.1 mmol/L 21.0-32.0 [facility] Chloride assayOrdered By: May Han on 06-04-2024 Chloride [Moles/Vol] 102 mmol/L 98-108 [facility] Comprehensive Metabolic Prof ilon 06-04-2024 Albumin [Mass/Vol] 3.4 g/dL Normal 3.4-4.8 [facility] Comment on above: Order Comment: Order Date: 12/05/23 Order Info: 785- - CMP Order Info: [id number] - LIPID Order Info: [id number] - MG Order Info: 6-3 - TSH DR. LEZAMA GETS RESULTS FOR UAC CMP LIPID MG TSH A1C DENIS GARRISON GETS RESULTS FOR PHOS CMP CBC PTH PROCRE Performed By: #### L 501.9520, L500.4050, L500.4100, L501.5200, L100.0100, L501.9985 #### [facility] [address] [place], [place], [address] Albumin/Globulin [Mass ratio] 1.2 {ratio} Normal 0.9-2.4 [facility] Comment on above: Order Comment: Order Date: 12/05/23 Order Info: [id number] - CMP Order Info: - LIPID Order Info: [id number] - MG Order Info: 3 - TSH DR. LEZAMA GETS RESULTS FOR UA CMP LIPID MG TSH A1C DENIS GARRISON GETS RESULTS FOR PHOS CMP CBC PTH PROCRE Performed By: #### L 501.9520, L500.4050, L500.4100, L501.5200, L100.0100, L501.9985 #### [facility] [address] [place], [place], [address] [phone] [phone] PHOS 121 U/L Normal 40-129 [facility] Comment on above: Order Comment: Order Date: 12/05/23 Order Info: [id number] - CMP Order Info: [id number] - LIPID Order Info: [id number] - MG Order Info: 3015-3 - TSH DR. LEZAMA GETS RESULTS FOR UA CMP LIPID MG TSH A1C DENIS GARRISON GETS RESULTS FOR PHOS CMP CBC PTH PROCRE Performed By: #### L 501.9520, L500.4050, L500.4100, L501.5200, L100.0100, L501.9985 #### [facility] [address] [place], [address] ALT [Catalytic activity/Vol] 56 U/L High <=46 [facility] Comment on above: Order Comment: Order Date: 12/05/23 Order Info: [id number] - CMP Order Info: [id number] - LIPID Order Info: [id number] - MG Order Info: 3016-3 - TSH DR. LEZAMA GETS RESULTS FOR UAC CMP LIPID MG TSH A1C DENIS GARRISON GETS RESULTS FOR PHOS CMP CBC PTH PROCRE Performed By: #### L 501.9520, L500.4050, L500.4100, L501.5200, L100.0100, L501.9985 #### [facility] [address] [place], [address] AST [Catalytic activity/Vol] 39 U/L High <=37 [facility] Comment on above: Order Comment: Order Date: 12/05/23 Order Info: [id number] - CMP Order Info: [id number] - LIPID Order Info: [id number] - MG Order Info: 3015-3 - TSH DR. LEAZMA GETS RESULTS FOR UA CMP LIPID MG TSH A1C DENIS GARRISON GETS RESULTS FOR PHOS CMP CBC PTH PROCRE Performed By: #### L 501.9520, L500.4050, L500.4100, L501.5200, L100.0100, L501.9985 #### [facility] [address] [place], [address] Bilirubin [Mass/Vol] 0.19 mg/dL Normal 0.00-1.30 [facility] Comment on above: Order Comment: Order Date: 12/05/23 Order Info: 785- - CMP Order Info: [id number] - LIPID Order Info: [id number] - MG Order Info: 3016-3 - TSH DR. LEZAMA GETS RESULTS FOR UAC CMP LIPID MG TSH A1C DENIS GARRISON GETS RESULTS FOR PHOS CMP CBC PTH PROCRE Performed By: #### L 501.9520, L500.4050, L500.4100, L501.5200, L100.0100, L501.9985 #### [facility] [address] [place], [address] BUN/CRE 20.5 RATIO High 10-20 [facility] Comment on above: Order Comment: Order Date: 12/05/23 Order Info: 785- - CMP Order Info: [id number] - LIPID Order Info: [id number] - MG Order Info: 3015-3 - TSH DR. LEZAMA GETS RESULTS FOR UA CMP LIPID MG TSH A1C DENIS GARRISON GETS RESULTS FOR PHOS CMP CBC PTH PROCRE Performed By: #### L 501.9520, L500.4050, L500.4100, L501.5200, L100.0100, L501.9985 #### [facility] [address] [place], [address] Calcium [Mass/Vol] 8.8 mg/dL Normal 7.6-11.0 [facility] Comment on above: Order Comment: Order Date: 12/05/23 Order Info: [id number] - CMP Order Info: - LIPID Order Info: [id number] - MG Order Info: 3015-04 - TSH DR. LEZAMA GETS RESULTS FOR UA CMP LIPID MG TSH A1C DENIS GARRISON GETS RESULTS FOR PHOS CMP CBC PTH PROCRE Performed By: #### L 501.9520, L500.4050, L500.4100, L501.5200, L100.0100, L501.9985 #### [facility] [address] [place], [address] Chloride [Moles/Vol] 102 mmol/L Normal 98-108 [facility] Comment on above: Order Comment: Order Date: 12/05/23 Order Info: 785- - CMP Order Info: [id number] - LIPID Order Info: [id number] - MG Order Info: 3015-3 - TSH DR. LEZAMA GETS RESULTS FOR UA CMP LIPID MG TSH A1C DENIS GARRISON GETS RESULTS FOR PHOS CMP CBC PTH PROCRE Performed By: #### L 501.9520, L500.4050, L500.4100, L501.5200, L100.0100, L501.9985 #### [facility] [address] [place], [address] CO2 [Moles/Vol] 23.1 mmol/L Normal 21.0-32.0 [facility] Comment on above: Order Comment: Order Date: 12/05/23 Order Info: 785- - CMP Order Info: [id number] - LIPID Order Info: [id number] - MG Order Info: 3016-3 - TSH DR. LEZAMA GETS RESULTS FOR UAC CMP LIPID MG TSH A1C DENIS GARRISON GETS RESULTS FOR PHOS CMP CBC PTH PROCRE Performed By: #### L 501.9520, L500.4050, L500.4100, L501.5200, L100.0100, L501.9985 #### [facility] [address] [place], [address] Creatinine [Mass/Vol] 2.61 mg/dL High 0.70-1.20 [facility] Comment on above: Order Comment: Order Date: 12/05/23 Order Info: [id number] - CMP Order Info: - LIPID Order Info: [id number] - MG Order Info: 3016-3 - TSH DR. LEZAMA GETS RESULTS FOR UA CMP LIPID MG TSH A1C DENIS GARRISON GETS RESULTS FOR PHOS CMP CBC PTH PROCRE Performed By: #### L 501.9520, L500.4050, L500.4100, L501.5200, L100.0100, L501.9985 #### [facility] [address] [place], [address] GAP 11 Normal 5-15 [facility] Comment on above: Order Comment: Order Date: 12/05/23 Order Info: [id number] - CMP Order Info: [id number] - LIPID Order Info: [id number] - MG Order Info: 3016-3 - TSH DR. LEZAMA GETS RESULTS FOR UA CMP LIPID MG TSH A1C DENIS GARRISON GETS RESULTS FOR PHOS CMP CBC PTH PROCRE Performed By: #### L 501.9520, L500.4050, L500.4100, L501.5200, L100.0100, L501.9985 #### [facility] [address] [place], [address] GFR/1.73 sq M.predicted among non-blacks MDRD (S/P/Bld) [Vol rate/Area] 26 mL/min/{1.73_m2} Low >60 [facility] Comment on above: Order Comment: Order Date: 12/05/23 Order Info: [id number] - CMP Order Info: [id number] - LIPID Order Info: [id number] - MG Order Info: 3015-3 - TSH DR. LEZAMA GETS RESULTS FOR UA CMP LIPID MG TSH A1C DENIS GARRISON GETS RESULTS FOR PHOS CMP CBC PTH PROCRE Result Comment: mL/m in/1.73m2 CKD-EPI Creatinine Equation (2020) Performed By: #### L 501.9520, L500.4050, L500.4100, L501.5200, L100.0100, L501.9985 #### [facility] [address] [place], [address] Globulin (S) [Mass/Vol] 2.8 g/dL Normal 2.2-4.2 [facility] Comment on above: Order Comment: Order Date: 12/05/23 Order Info: [id number]- - CMP Order Info: [id number] - LIPID Order Info: [id number] - MG Order Info: 3 - TSH [facility] LEZAMA [facility] CMP LIPID MG TSH A1C DENIS GARRISON GETS RESULTS FOR PHOS CMP CBC PTH PROCRE Performed By: #### L 501.9520, L500.4050, L500.4100, L501.5200, L100.0100, L501.9985 #### [facility] [address] [place], [address] Glucose [Mass/Vol] 196 mg/dL High 70-99 [facility] Comment on above: Order Comment: Order Date: 12/05/23 Order Info: 785- - CMP Order Info: [id number] - LIPID Order Info: [id number] - MG Order Info: 6-3 - TSH DR. LEZAMA GETS RESULTS FOR UA CMP LIPID MG TSH A1C DENIS GARRISON GETS RESULTS FOR PHOS CMP CBC PTH PROCRE Performed By: #### L 501.9520, L500.4050, L500.4100, L501.5200, L100.0100, L501.9985 #### [facility] [address] [place], [address] Potassium [Moles/Vol] 4.8 mmol/L Normal 3.3-5.1 [facility] Comment on above: Order Comment: Order Date: 12/05/23 Order Info: [id number] - CMP Order Info: [id number] - LIPID Order Info: [id number] - MG Order Info: 3 - TSH [facility] LEZAMA [facility] CMP LIPID MG TSH A1C DENIS GARRISON GETS RESULTS FOR PHOS CMP CBC PTH PROCRE Performed By: #### L 501.9520, L500.4050, L500.4100, L501.5200, L100.0100, L501.9985 #### [facility] [address] [place], [address] Sodium [Moles/Vol] 136 mmol/L Normal 133-145 [facility] Comment on above: Order Comment: Order Date: 12/05/23 Order Info: 785- - CMP Order Info: [id number] - LIPID Order Info: [id number] - MG Order Info: 6-3 - TSH [facility] LEZAMA [facility] CMP LIPID MG TSH A1C DENIS GARRISON GETS RESULTS FOR PHOS CMP CBC PTH PROCRE Performed By: #### L 501.9520, L500.4050, L500.4100, L501.5200, L100.0100, L501.9985 #### [facility] [address] [place], [address] T PROT 6.2 g/dL Normal 5.9-8.4 [facility] Comment on above: Order Comment: Order Date: 12/05/23 Order Info: 07-1 - CMP Order Info: [id number] - LIPID Order Info: [id number] - MG Order Info: 6-3 - TSH DR. LEZAMA GETS RESULTS FOR UA CMP LIPID MG TSH A1C DENIS GARRISON GETS RESULTS FOR PHOS CMP CBC PTH PROCRE Performed By: #### L 501.9520, L500.4050, L500.4100, L501.5200, L100.0100, L501.9985 #### [facility] [address] [place], [place], [address] Urea nitrogen [Mass/Vol] 54 mg/dL High 4-19 [facility] Comment on above: Order Comment: Order Date: 12/05/23 Order Info: [id number] - CMP Order Info: [id number] - LIPID Order Info: [id number] - MG Order Info: 3015-3 - TSH DR. LEZAMA GETS RESULTS FOR UA CMP LIPID MG TSH A1C DENIS GARRISON GETS RESULTS FOR PHOS CMP CBC PTH PROCRE Performed By: #### L 501.9520, L500.4050, L500.4100, L501.5200, L100.0100, L501.9985 #### [facility] [address] [place], [address] Eosinophil percentageOrdered By: Piedad Han on 06-04-2024 Eosinophils/100 WBC (Bld) 4.8 % 0-5 [facility] Erythrocyte distribution wid th ratioOrdered By: Piedad Han on 06-04-2024 Erythrocyte distribution width (RBC) [Ratio] 13.2 % 11.6-14.6 [facility] Erythrocyte distribution wid th standard deviationOrdered By: Piedad Han on 06-04-2024 Erythrocyte distribution width (RBC) [Ratio] 44.7 fl High 35.1-43.9 [facility] Glomerular filtration rate ( GFR) estimation/1.73 sq m using serum, plasma, or whole bOrdered By: Piedad Han on 04-22-2025 GFR/1.73 sq M.predicted among non-blacks MDRD (S/P/Bld) [Vol rate/Area] 26 mL/min/{1.73_m2} Low >60 [facility] Comment on above: mL/min/1.73m2 CKD-EP I Creatinine Equation (2020) Hematocrit Auto (Bld) [Volum e fraction]Ordered By: Piedad Han on 06-04-2024 Hematocrit (Bld) [Volume fraction] 40.7 % 40-54 [facility] Hemoglobin A1con 06-04-2024 HbA1c (Bld) [Mass fraction] 7.2 % High <=5.6 [facility] Comment on above: Order Comment: Order Date: 12/05/23 Order Info: [id number] - A1C Result Comment: Norm al < 5.7 % Prediabetic 5.7 - 6.4 % Diabetic >or= 6.5 % Please note range changes. Performed By: #### L 501.9520, L500.4050, L500.4100, L501.5200, L100.0100, L501.9985 #### [facility] [place], [address] Hemoglobin A1c percentageOrd ered By: Piedad Han on 06-04-2024 HbA1c (Bld) [Mass fraction] 7.2 % High <5.7 [facility] Comment on above: Normal < 5.7 % Predi abetic 5.7 - 6.4 % Diabetic >or= 6.5 % Please note range changes. Hemoglobin measurementOrdere d By: Piedad Han on 06-04-2024 Hemoglobin (Bld) [Mass/Vol] 13.2 g/dL 13.0-16.5 [facility] Immature granulocytes/100 WB C Auto (Bld)Ordered By: Piedad Han on 06-04-2024 Immature granulocytes/100 WBC (Bld) 0.600 % 0.0-0.9 [facility] Comment on above: IG% - Immature Granu locytes (promyelocytes, myelocytes and metamyelocytes) > 1% indicates that a LEFT SHIFT is Present. Ketones Test strip Ql (U)Ord ered By: Piedad Han on 06-04-2024 Ketones Ql (U) Negative Negative [facility] LDL calc ser/plasOrdered By: Piedad Han on 06-04-2024 Cholesterol in LDL [Mass/Vol] 64 mg/dL [facility] Comment on above: Unddnmxuyn=571-693 m g/dL & Higher Nvjs=054 mg/dL or greater Laboratory - Chemistry and C hemistry - challengeOrdered By: Piedad Han on 06-04-2024 AST [Catalytic activity/Vol] 39 U/L High <38 [facility] Lipid Profileon 06-04-2024 CHOL:HDL 3.62 Normal [facility] Comment on above: Order Comment: Order Date: 12/05/23 Order Info: [id number] - CMP Order Info: - LIPID Order Info: [id number] - MG Order Info: 3016-3 - TSH [facility] LEZAMA [facility] CMP LIPID MG TSH A1C DENIS GARRISON GETS RESULTS FOR PHOS CMP CBC PTH PROCRE Performed By: #### L 501.9520, L500.4050, L500.4100, L501.5200, L100.0100, L501.9985 #### [facility] [address] [place], [address] Cholesterol [Mass/Vol] 134 mg/dL Normal <=200 [facility] Comment on above: Order Comment: Order Date: 12/05/23 Order Info: [id number] - CMP Order Info: - LIPID Order Info: [id number] - MG Order Info: 3016-3 - TSH [facility]. LEZAMA GETS [facility] CMP LIPID MG TSH A1C DENIS GARRISON GETS RESULTS FOR PHOS CMP CBC PTH PROCRE Result Comment: Chol esterol level, Desirable <200 mg/dL Borderline high cholesterol 200-239 mg/dL High cholesterol >=240 mg/dL Recommendations of the NCEP Adult Treatment Panel for the following risk-cutoff thresholds for the [place] population. Performed By: #### L 501.9520, L500.4050, L500.4100, L501.5200, L100.0100, L501.9985 #### [facility] [address] [place], [address] Cholesterol in HDL [Mass/Vol] 37 mg/dL Low [facility] Comment on above: Order Comment: Order Date: 12/05/23 Order Info: [id number] - CMP Order Info: [id number] - LIPID Order Info: [id number] - MG Order Info: 3016-3 - TSH DR. LEZAMA GETS RESULTS FOR UAC CMP LIPID MG TSH A1C DENIS GARRISON GETS RESULTS FOR PHOS CMP CBC PTH PROCRE Result Comment: [place] Cholesterol Education Program (NCEP) guidelines: <40 mg/dL: Low HDL-cholesterol (major risk factor for CHD) >= 60 mg/dL: High HDL-cholesterol (negative risk factor for CHD) HDL-cholesterol is affected by a number of factors, e.g. smoking, exercise, hormones, sex and age. Performed By: #### L 501.9520, L500.4050, L500.4100, L501.5200, L100.0100, L501.9985 #### [facility] [address] [place], [address] Cholesterol in LDL [Mass/Vol] 64 mg/dL Normal [facility] Comment on above: Order Comment: Order Date: 12/05/23 Order Info: [id number] - CMP Order Info: - LIPID Order Info: [id number] - MG Order Info: 3016-3 - TSH DR. LEZAMA GETS RESULTS FOR UAC CMP LIPID MG TSH A1C DENIS GARRISON GETS RESULTS FOR PHOS CMP CBC PTH PROCRE Result Comment: Bord qawywl=250-381 mg/dL Higher Auma=129 mg/dL or greater Performed By: #### L 501.9520, L500.4050, L500.4100, L501.5200, L100.0100, L501.9985 #### [facility] [address] [place], [address] Cholesterol in VLDL [Mass/Vol] 33 mg/dL Normal 5-40 [facility] Comment on above: Order Comment: Order Date: 12/05/23 Order Info: [id number] - CMP Order Info: - LIPID Order Info: [id number] - MG Order Info: 3015-04 - TSH DR. LEZAMA GETS RESULTS FOR UA CMP LIPID MG TSH A1C DENIS GARRISON GETS RESULTS FOR PHOS CMP CBC PTH PROCRE Performed By: #### L 501.9520, L500.4050, L500.4100, L501.5200, L100.0100, L501.9985 #### [facility] [address] [place], [address] Triglyceride [Mass/Vol] 166 mg/dL Normal [facility] Comment on above: Order Comment: Order Date: 12/05/23 Order Info: [id number] - CMP Order Info: - LIPID Order Info: [id number] - MG Order Info: 3015-04 - TSH [facility] LEZAMA GETS [facility] CMP LIPID MG TSH A1C DENIS GARRISON GETS RESULTS FOR PHOS CMP CBC PTH PROCRE Result Comment: The drugs N-Acetylcysteine and Metamizole may falsely depress this assay. Normal range: <150 mg/dL Borderline High: 150-199 mg/dL High: 200-499 mg/dL Very High: >500 mg/dL Performed By: #### L 501.9520, L500.4050, L500.4100, L501.5200, L100.0100, L501.9985 #### [facility] [address] [place], [address] MCV (mean corpuscular volume ) determinationOrdered By: Piedad Han on 06-04-2024 MCV (RBC) [Entitic vol] 94.9 fL High 80-94 [facility] Magnesiumon 06-04-2024 Magnesium [Mass/Vol] 2.2 mg/dL Normal 1.5-2.2 [facility] Comment on above: Order Comment: Order Date: 12/05/23 Order Info: [id number] - CMP Order Info: - LIPID Order Info: [id number] - MG Order Info: 3015-04 - TSH DR. LEZAMA GETS RESULTS FOR UA CMP LIPID MG TSH A1C DENIS GARRISON GETS RESULTS FOR PHOS CMP CBC PTH PROCRE Performed By: #### L 501.9520, L500.4050, L500.4100, L501.5200, L100.0100, L501.9985 #### [facility] [place], [address] Magnesium measurement (mass/ volume)Ordered By: Piedad Han on 06-04-2024 Magnesium (Unsp spec) [Mass/Vol] 2.2 mg/dL 1.5-2.2 [facility] Mean corpuscular hemoglobin (MCH) determinationOrdered By: Piedad Han on 06-04-2024 MCH (RBC) [Entitic mass] 30.8 pg 27.0-32.0 [facility] Mean corpuscular hemoglobin concentration (MCHC) determinationOrdered By: Piedad Han on 06-04-2024 MCHC (RBC) [Mass/Vol] 32.4 g/dL 32-36 [facility] Mean platelet volume determi nationOrdered By: Piedad Han on 06-04-2024 Platelet mean volume (Bld) [Entitic vol] 8.5 fL 6.2-12.0 [facility] Microscopic analysis of urin e for red blood cells (RBC)Ordered By: Piedad Han on 06-04-2024 Microscopic analysis of urine for red blood cells (RBC) 0-5 SEEN /hpf 0-5 [facility] Monocyte percentageOrdered B y: Piedad Han on 06-04-2024 Monocytes/100 WBC (Bld) 6.5 % 0-10 [facility] Mucus LM Ql (Urine sed)Order ed By: Piedad Han on 06-04-2024 Mucus Ql (Urine sed) 0 SEEN /hpf [facility] Neutrophil percentageOrdered By: Piedad Han on 06-04-2024 Neutrophils/100 WBC (Bld) 71.9 % High 47-70 [facility] Nitrite Test strip Ql (U)Ord ered By: Piedad Han on 06-04-2024 Nitrite Ql (U) Negative Negative [facility] Nucleated red blood cell per centageOrdered By: Piedad Han on 06-04-2024 Nucleated RBC/100 WBC (Bld) [Ratio] 0 % 0-5 [facility] PTHINon 06-04-2024 PTH 109 pg/mL High 11-61 [facility] Comment on above: Performed By: #### L [id number] #### [facility] [address] [place], [address] Phosphoruson 06-04-2024 Phosphate [Mass/Vol] 4.4 mg/dL Normal 2.7-4.5 [facility] Comment on above: Order Comment: CLEAN CATCH Performed By: #### L [id number] #### [facility] [address] [place], [address] Platelet countOrdered By: May Han on 06-04-2024 Platelets (Bld) [#/Vol] 207 10*3/uL 150-450 [facility] Potassium measurement (mass/ volume)Ordered By: Piedad Han on 06-04-2024 Potassium (Unsp spec) [Mass/Vol] 4.8 mmol/L 3.3-5.1 [facility] Protein Test strip Ql (U)Ord ered By: Piedad Han on 06-04-2024 Protein Ql (U) 100 mg/dl High Negative [facility] Protein+Creatinine Ratio,Uri neon 06-04-2024 PROT:CRE RATIO 3393 mg/g CRE High 0-200 [facility] Comment on above: Performed By: #### L [id number] #### [facility] [address] [place], [address] UR CREAT 44.80 mg/dL Normal 39.00-259. 00 [facility] Comment on above: Performed By: #### L [id number] #### [facility] [address] [place], [address] RBC Auto (Bld) [#/Vol]Ordere d By: Piedad aHn on 06-04-2024 RBC (Bld) [#/Vol] 4.29 10*6/uL Low 4.6-6.2 [facility] Random urine creatinine priyanka urement (mass/volume)Ordered By: Piedad Han on 06-04-2024 Creatinine Unsp time (U) [Mass/Vol] 44.80 mg/dL 39.00-259. 00 [facility] Screening total cholesterol/ high density lipoprotein (HDL) cholesterol ratioOrdered By: Piedad Han on 06-04-2024 Cholesterol.total/Choles terol in HDL [Mass ratio] 3.62 {ratio} [facility] Serum creatinine measurement (mass/volume)Ordered By: Piedad Han on 06-04-2024 Creatinine [Mass/Vol] 2.61 mg/dL High 0.70-1.20 [facility] Serum globulin measurementOr dered By: Piedad Han on 06-04-2024 Globulin (S) [Mass/Vol] 2.8 g/dL 2.2-4.2 [facility] Serum glucose measurement (m ass/volume)Ordered By: Piedad Han on 06-04-2024 Glucose [Mass/Vol] 196 mg/dL High 70-99 [facility] Serum or plasma alanine menezes otransferase (ALT) measurementOrdered By: Piedad Han on 06-04-2024 ALT [Catalytic activity/Vol] 56 U/L High <47 [facility] Serum or plasma albumin priyanka urement (mass/volume)Ordered By: Piedad Han on 06-04-2024 Albumin [Mass/Vol] 3.4 g/dL 3.4-4.8 [facility] Serum or plasma albumin/glob ulin mass ratioOrdered By: Piedad Han on 06-04-2024 Albumin/Globulin [Mass ratio] 1.2 {ratio} 0.9-2.4 [facility] Serum or plasma alkaline enio sphatase measurementOrdered By: Piedad Han on 06-04-2024 ALP [Catalytic activity/Vol] 121 U/L 40-129 [facility] Serum or plasma calcium priyanka urement (mass/volume)Ordered By: Piedad Han on 06-04-2024 Calcium [Mass/Vol] 8.8 mg/dL 7.6-11.0 [facility] Serum or plasma cholesterol in HDL measurement (mass/volume)Ordered By: Piedad Han on 06-04-2024 Cholesterol in HDL [Mass/Vol] 37 mg/dL Low >40 [facility] Comment on above: National Cholesterol Education Program (NCEP) guidelines:<40 mg/dL: Low HDL-cholesterol (major risk factor for CHD)>= 60 mg/dL: High HDL-cholesterol (negative risk factor for CHD)HDL-cholesterol is affected by a number of factors, e.g. smoking, exercise, hormones, sex and age. Serum or plasma cholesterol measurement (mass/volume)Ordered By: Piedad Han on 06-04-2024 Cholesterol [Mass/Vol] 134 mg/dL <201 [facility] Comment on above: Cholesterol level, D esirable <200 mg/dLBorderline high cholesterol 200-239 mg/dLHigh cholesterol >=240 mg/dLRecommendations of the NCEP Adult Treatment Panel for the following risk-cutoff thresholds for the [place] population. Serum or plasma urea nitroge n measurement (mass/volume)Ordered By: Piedad Han on 06-04-2024 Urea nitrogen [Mass/Vol] 54 mg/dL High 4-19 [facility] Sodium levelOrdered By: Piedad Han on 06-04-2024 Sodium [Moles/Vol] 136 mmol/L 133-145 [facility] Squamous epithelial cells de tection in urine sediment by light microscopyOrdered By: Piedad Han on 06-04-2024 Epithelial cells.squamous LM Ql (Urine sed) 0 SEEN /hpf 0-5 [facility] T4 freeOrdered By: Piedad vale on 06-04-2024 Free T4 [Mass/Vol] 1.00 ng/dL 0.76-1.46 [facility] TSH DL <= 0.005 mIU/L QnOrde red By: Piedad Han on 06-04-2024 TSH Qn 8.780 uIU/mL High 0.300-4.20 0 [facility] Thyroid Stim Hormone (TSH)on 06-04-2024 TSH 8.780 uIU/mL High 0.300-4.20 0 [facility] Comment on above: Order Comment: Order Date: 12/05/23 Order Info: [id number] - CMP Order Info: [id number] - LIPID Order Info: [id number] - MG Order Info: [id number] - TSH DR. LEZAMA GETS RESULTS FOR UAC CMP LIPID MG TSH A1C DENIS GARRISON GETS RESULTS FOR PHOS CMP CBC PTH PROCRE Performed By: #### L 501.9520, L500.4050, L500.4100, L501.5200, L100.0100, L501.9985 #### [facility] [address] [place], [address] Total proteinOrdered By: Zhang Han on 06-04-2024 Protein [Mass/Vol] 6.2 g/dL 5.9-8.4 [facility] Triglycerides measurementOrd ered By: Piedad Han on 06-04-2024 Triglyceride [Mass/Vol] 166 mg/dL <199 [facility] Comment on above: The drugs N-Acetylcy steine and Metamizole may falsely depress this assay. Normal range: <150 mg/dLBorderline High: 150-199 mg/dLHigh: 200-499 mg/dLVery High: >500 mg/dL Urinalysis, Completeon 06-04 BILIRUBIN URINE Negative Normal Negative [facility] Comment on above: Order Comment: CLEAN CATCH Performed By: #### L [id number] #### [facility] [address] [place], [address] Clarity (U) Clear Normal Clear [facility] Comment on above: Order Comment: CLEAN CATCH Performed By: #### L [id number] #### [facility] [address] [place], [address] Color (U) Straw Normal Yellow [facility] Comment on above: Order Comment: CLEAN CATCH Performed By: #### L [id number] #### [facility] [address] [place], [address] GLUCOSE, UR 1000 mg/dl Abnormal Normal [facility] Comment on above: Order Comment: CLEAN CATCH Performed By: #### L [id number] #### [facility] [address] [place], [address] KETONE UR Negative Normal Negative [facility] Comment on above: Order Comment: CLEAN CATCH Performed By: #### L [id number] #### [facility] [address] [place], [address] LEUK ESTERASE Negative Normal Negative [facility] Comment on above: Order Comment: CLEAN CATCH Performed By: #### L [id number] #### [facility] [address] [place], [address] Nitrite Ql (U) Negative Normal Negative [facility] Comment on above: Order Comment: CLEAN CATCH Performed By: #### L [id number] #### [facility] [address] [place], [address] OCCULT BLOOD-UR 25 /ul Abnormal Negative [facility] Comment on above: Order Comment: CLEAN CATCH Performed By: #### L [id number] #### [facility] [address] [place], [address] pH UR 6.0 Normal 5.0 - 8.0 [facility] Comment on above: Order Comment: CLEAN CATCH Performed By: #### L [id number] #### [facility] [address] [place], [address] PROT DIPSTX 100 mg/dl Abnormal Negative [facility] Comment on above: Order Comment: CLEAN CATCH Performed By: #### L [id number] #### [facility] [address] [place], [address] SP.GR. DIPSTX 1.015 Normal 1.002-1.03 0 [facility] Comment on above: Order Comment: CLEAN CATCH Performed By: #### L [id number] #### [facility] [address] [place], [address] UROBILI Normal Normal Normal [facility] Comment on above: Order Comment: CLEAN CATCH Performed By: #### L [id number] #### [facility] [address] [place], [address] Urine clarityOrdered By: Zhang Han on 06-04-2024 Clarity (U) Clear Clear [facility] Urine color determinationOrd ered By: Piedad Han on 06-04-2024 Color (U) Straw Yellow [facility] Urine glucose detectionOrder ed By: Piedad Han on 06-04-2024 Glucose Ql (U) 1000 mg/dl High Normal [facility] Urine leukocyte esterase det ection by dipstickOrdered By: Piedad Han on 06-04-2024 Leukocyte esterase Test strip Ql (U) Negative Negative [facility] Urine pHOrdered By: Piedad ring on 06-04-2024 pH (U) 6.0 [pH] 5.0 - 8.0 [facility] Urine protein measurement (m ass/volume)Ordered By: Piedad Han on 06-04-2024 Protein (U) [Mass/Vol] 152.0 mg/dL High 0.0-12.0 [facility] Comment on above: Performed By: #### L [id number] #### [facility] [address] [place] [address], [id number] Urine protein/creatinine mas s ratioOrdered By: Piedad Han on 06-04-2024 Protein/Creatinine (U) [Mass ratio] 3393 mg/g CRE High 0-200 [facility] Urine sediment bacteria coun t by microscopy (number/high power field)Ordered By: Piedad Han on 06-04-2024 Bacteria LM.HPF (Urine sed) [#/Area] 0 /[HPF] None Seen [facility] Urine specific gravity measu rementOrdered By: Piedad Han on 06-04-2024 Specific gravity (U) [Rel density] 1.015 1.002-1.03 0 [facility] Urine urobilinogen measureme ntOrdered By: Piedad Han on 06-04-2024 Urobilinogen Ql (U) Normal mg/dl Normal [facility] White blood cell (WBC) count Ordered By: Piedad Han on 06-04-2024 WBC (Bld) [#/Vol] 8.6 10*3/uL 4.4-11.0 [facility] White blood cell countOrdere d By: Piedad Han on 06-04-2024 White blood cell count 0-5 SEEN /hpf 0-5 [facility] Chung 05-31-2024 THERESEN Telephone (STED) -- GAMALIEL GRIFFIN ([id number]) 1955 M Date Time Provider Department 05/31/24 MONICA HOYT During your visit today, we recorded the following information about you: Yadira Ahn MA 05/31/2024 8:22 AM Signed [facility] faxed over a 'patient note' requesting most recent OV notes and patient's insurance cards. Printed electronically signed notes and attached insurance cards. Faxed and received confirmation. Filed in [facility] Patient notes Yadira Ahn MA Allergies As of Date: 05/31/2024 Noted Allergy Reaction LISINOPRIL 09/30/2022 7 - Swelling Date Reviewed: 05/29/2024 Reviewed by: Erica Inman MA - Fully Assessed Reason for Visit: Orders [681] Cmt: [facility] Prescriptions as of 05/31/2024 - Blood-Glucose Sensor (FREESTYLE YAZMIN 3 PLUS SENSOR) kathleen CHANGE SENSOR EVERY 15 days. USE FOR CONTINUOUS GLUCOSE MONITORING. MULTIPLE INSULIN INJECTIONS E11.9 - Blood-Glucose Meter,Continuous (FREESTYLE YAZMIN 3 READER) [facility] DISPENSE ONE READER KIT. USE FOR CONTINUOUS GLUCOSE MONITORING. MULTIPLE INSULIN INJECTIONS. E11.9 - insulin glargine (LANTUS SOLOSTAR U-100 INSULIN) 100 unit/mL (3 mL) Inject 25 units once daily - dapagliflozin propanediol (FARXIGA) 10 mg tablet Take 1 tablet by mouth daily with breakfast. - KERENDIA 20 mg tablet Take 20 mg by mouth once daily. - blood sugar diagnostic (TRUE METRIX GLUCOSE TEST STRIP) test strip Use as instructed to check blood sugar 4 times a day - insulin aspart U-100 (NOVOLOG FLEXPEN U-100 INSULIN) 100 unit/mL (3 mL) Inject 5 units with meals PLUS SS#1 - pre meal blood sugar only (1 unit for every 50 over 150 PRE MEAL) TDD 20 units - metoprolol succinate ER (TOPROL XL) 50 mg 24 hr tablet Take 1 tablet by mouth two times a day. - Insulin Union, Disposable, (BD ULTRA-FINE KENN PEN NEEDLE) 32 gauge x 5/32 Use to inject insulin 4 times a day - Lancets lancets Use as directed to check blood sugars 4 times a day - levothyroxine (SYNTHROID) 175 mcg tablet Take 150 mcg by mouth daily before breakfast. - OTC PRODUCT Stool softner daily - rosuvastatin (CRESTOR) 20 mg tablet Take 40 mg by mouth once daily. - amLODIPine (NORVASC) 10 mg tablet Take 10 mg by mouth once daily. - aspirin, enteric coated (ASPIRIN, ENTERIC COATED) 81 mg EC tablet Take 81 mg by mouth once daily. - allopurinol (ZYLOPRIM) 300 mg tablet Take 300 mg by mouth once daily. - buPROPion SR (ZYBAN SR; WELLBUTRIN SR) 150 mg 12 hr tablet Take 150 mg by mouth twice daily. Problem List As Of Date 05/31/2024 Noted Resolved Ischemic cardiomyopathy [I25.5] 01/10/2023 CAD (coronary artery disease) [I25.10] 01/10/2023 Hypertensive kidney disease with stage 3 chroni*01/10/2023 Essential hypertension [I10] 01/10/2023 Stage 3b chronic kidney disease (HCC) [N18.32] 01/10/2023 Type 2 diabetes mellitus with stage 3b chronic *01/10/2023 Discharge planning issues [Z75.8] 01/24/2023 Special screening for malignant neoplasms, colo*01/24/2023 Acute on chronic systolic congestive heart fail*01/26/2023 01/31/2023 HLD (hyperlipidemia) [E78.5] 01/26/2023 Hypothyroid [E03.9] 01/26/2023 Gout [M10.9] 01/26/2023 JESENIA (obstructive sleep apnea) [G47.33] 01/26/2023 Mitral regurgitation [I34.0] 01/26/2023 Coronary artery disease due to lipid rich plaqu*01/26/2023 ABLA (acute blood loss anemia) [D62] 01/28/2023 Thrombocytopenia (HCC) [D69.6] 01/28/2023 01/30/2023 Hypervolemia [E87.70] 01/28/2023 Hyperkalemia [E87.5] 01/28/2023 01/30/2023 Hyponatremia [E87.1] 01/28/2023 01/30/2023 Postoperative pain [G89.18] 01/30/2023 Atrial fibrillation with RVR (HCC) [I48.91] 01/30/2023 Insulin dose changed (HCC) [Z79.4] 01/30/2023 Chronic systolic congestive heart failure (HCC)*01/31/2023 Summary [Z91.89] 02/01/2023 Hyperparathyroidism (HCC) [E21.3] 08/04/2023 Encounter Status:Closed by YADIRA AHN on 05/31/24 Normal [facility] ALBUMIN/CREATININE RATIO, UR INEon 05-29-2024 Albumin DL <= 20 mg/L (U) [Mass/Vol] 1045.6 mg/L Normal [facility] Comment on above: Order Comment: Nasir grace Type: BLOOD SPECIMEN Ordering Facility: [facility] Address: [address] [place] [address] Performed By: #### L IPNF #### [facility] CLIA [id number] [address] [place] [address] [place] Albumin/Creatinine (U) [Mass ratio] 2796 mg/g High <30 [facility] Comment on above: Order Comment: Nasir grace Type: BLOOD SPECIMEN Ordering Facility: [facility] Address: [address] [place] [address] Result Comment: Not calculated Adult Male and Female Nephrotic Criteria: <30 mg/g is considered normal to mildly increased 30-300 mg/g is considered moderately increased >300 mg/g is considered severely increased KDIGO. (2013). KDIGO 2012 Clinical Practice Guideline for the Evaluation and Management of Chronic Kidney Disease. Official Journal of the International Society of Nephrology, 3(1), 1-150. Performed By: #### L IPNF #### [facility] CLIA [id number] [address] [place] [address] [place] Creatinine (U) [Mass/Vol] 37.4 mg/dL Normal 20.0-300.0 [facility] Comment on above: Order Comment: Speci men Type: BLOOD SPECIMEN Ordering Facility: [facility] Address: [address] [place] [address] Performed By: #### L IPNF #### [facility] CLIA [id number] [address] [place] [address] OF [facility] CNOVon 05-29-2024 CNOV Office Visit (ENWSTR ) -- GABYGAMALIEL D ([id number]) 1955 M Date Time Provider Department 05/29/24 11:45 AM MONICA HOYT ENWSTR During your visit today, we recorded the following information about you: Temperature Pulse Respiration Weight 98.5 degrees 55/minute 14/minute 83.2 kg Monica Hoyt, 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 06/29/2024 12:38 PM Addendum OFFICE VISIT PROGRESS NOTE CC Gamaliel Thakkar Gaby is a 68 year old who presents today for blood sugar review. HPI Diagnosed with diabetes mellitus type 2, ~ 2009 Last endocrine OV 11/08/2023 Some elements copied from my note 11/08/2023 which have been updated where appropriate, and all reflect current medical decision making from date of this visit. HPI Sts co pay for CGM through local pharmacy was 70 dollars, not affordable to patient Did not go through DME for his sensors. Is using multiple insulin injections Has been finger sticking - did not bring his log book today, pt recall Does follow with Dr Barrios for nephrology for CKD 3b CURRENT DM MEDS FARXIGA 10 mg 1 tab daily LANTUS 25 units daily NOVOLOG 5-5-5 plus SS#1 THYROID SYNTHROID 175 mcg 1 tab daily (managed by PCP) SMBG Type of Monitor: Other Frequency of Monitoring: BG Values: Note Hypoglycemia: no Diet: Low carbohydrate Exercise: 3 days total gym 3 days 1 hour walking DM REVIEW OF SYSTEMS Last Eye Exam : 2023 will see retina specialist soon (reports eye have worsened since CABG) Last Podiatry Exam: Cardiorespiratory: negative, denies chest pain, pressure Claudication: no Dyslipidemia: Yes, controlled on medication High Blood Pressure: Yes, controlled on medication CURRENT LABS - labs ordered, not completedby patient for OV Recent Labs 01/10/23 1044 01/25/23 0813 01/26/23 1542 01/31/23 0026 02/01/23 0905 02/02/23 0453 05/10/23 1059 10/17/23 1613 10/17/23 1617 ALT 16 12 < > 11 19 -- -- 14 -- AST 19 12* < > 18 33 -- -- 21 -- UCRR -- -- -- -- -- -- -- -- 32.1 UALBR -- -- -- -- -- -- -- -- 536.5 UALBCR -- -- -- -- -- -- -- -- 1,671* TSH -- 2.050 -- -- -- -- -- -- -- TPROT 6.1* 5.5* < > 5.3* 5.9* -- -- 6.4 -- ALB 3.5* 3.5* < > 2.8* 3.4* -- -- 3.5* -- CA 8.7 8.4* < > 8.3* 8.2* 8.1* -- 8.9 -- TBILI 0.2 0.2 < > 0.4 0.6 -- -- 0.2 -- ALKPHOS 104 127* < > 58 67 -- -- 116* -- GLUC 296* 373* < > 125* 209* 197* -- 187* -- BUN 43* 50* < > 51* 47* 49* -- 48* -- CREAT 2.68* 2.60* < > 2.47* 2.36* 2.59* -- 2.60* -- NA 137 135* < > 137 136 134* -- 135* -- K 4.7 4.8 < > 3.8 3.9 4.6 -- 4.4 -- CHLOR 99 100 < > 101 100 102 -- 101 -- CO2 26 24 < > 23 26 21* -- 22 -- ANION 12 11 < > 13 10 11 -- 12 -- EGFROTH 25* 26* < > 28* 29* 26* -- 26* -- HBA1C 9.4* -- -- -- -- -- 6.8* 6.8* -- < > = values in this interval not displayed. 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 Sleep apnea PAST SURGICAL HISTORY Procedure Laterality Date CABG, VEIN, FOUR 01/26/2023 01/26/2023: CABGx4: SULLIVAN to LAD SVG to RPDA/SVG to OM2 /Left Radial to Ramus @ [facility] COLONOSCOPY FLX DX W/COLLJ SPEC WHEN PFRMD 06/23/2020 PAST SURGICAL HISTORY OF Cardiac stent x 4 FAMILY HISTORY Problem Relation Age of Onset other (passed at age 82) Mother Intersitial Lung Disease Mother Heart Attack Father other (passed at age 53) Father Cancer Paternal Grandfather Diabetes Sister other (valve disease) Sister other (atrial fib) Sister Social History Tobacco Use Smoking status: Never Smokeless tobacco: Never Substance Use Topics Alcohol use: Never Drug use: Never Current Outpatient Medications Medication Sig dapagliflozin propanediol (FARXIGA) 10 mg tablet Take 1 tablet by mouth daily with breakfast. KERENDIA 20 mg tablet Take 20 mg by mouth once daily. blood sugar diagnostic (TRUE METRIX GLUCOSE TEST STRIP) test strip Use as instructed to check blood sugar 4 times a day insulin glargine (LANTUS SOLOSTAR U-100 INSULIN) 100 unit/mL (3 mL) Inject 14 units once daily (Patient taking differently: Inject 15 Units subcutaneously. Inject 14 units once daily) insulin aspart U-100 (NOVOLOG FLEXPEN U-100 INSULIN) 100 unit/mL (3 mL) Inject 5 units with meals PLUS SS#1 - pre meal blood sugar only (1 unit for every 50 over 150 PRE MEAL) TDD 20 units Blood-Glucose Sensor (FREESTYLE YAZMIN 3 SENSOR) kathleen CHANGE sensor every 14 days. USE FOR CONTINUOUS GLUCOSE MONITORING. MULTIPLE INSULIN INJECTIONS (more content not included)... Normal [facility] Comprehensive metabolic 2000 panelon 05-29-2024 Albumin [Mass/Vol] 3.5 g/dL Low 3.9-4.9 [facility] Comment on above: Order Comment: Speci men Type: BLOOD SPECIMEN Ordering Facility: [facility] Address: [address] [place] [address] Performed By: #### L IPNF #### [facility] CLIA [id number] [address] [place] [address] [place] ALP [Catalytic activity/Vol] 126 U/L High 38-113 [facility] Comment on above: Order Comment: Speci men Type: BLOOD SPECIMEN Ordering Facility: [facility] Address: [address] [place] [address] Performed By: #### L IPNF #### [facility] CLIA [id number] [address] [place] [address] [place] ALT [Catalytic activity/Vol] 45 U/L Normal 10-54 [facility] Comment on above: Order Comment: Speci men Type: BLOOD SPECIMEN Ordering Facility: [facility] Address: [address] [place] [address] Performed By: #### L IPNF #### [facility] CLIA [id number] [address] [place] [address] [place] Anion gap [Moles/Vol] 7 mmol/L Low 8-15 [facility] Comment on above: Order Comment: Speci men Type: BLOOD SPECIMEN Ordering Facility: [facility] Address: [address] [place] [address] Performed By: #### L IPNF #### [facility] CLIA [id number] [address] [place] [address] [place] AST [Catalytic activity/Vol] 31 U/L Normal 14-40 [facility] Comment on above: Order Comment: Speci men Type: BLOOD SPECIMEN Ordering Facility: [facility] Address: [address] [place] [address] Performed By: #### L IPNF #### [facility] CLIA [id number] [address] [place] [address] [place] Bilirubin [Mass/Vol] 0.2 mg/dL Normal 0.2-1.3 [facility] Comment on above: Order Comment: Speci men Type: BLOOD SPECIMEN Ordering Facility: [facility] Address: [address] [place] [address] Performed By: #### L IPNF #### [facility] CLIA [id number] [address] [place] [address] [place] Calcium [Mass/Vol] 9.3 mg/dL Normal 8.5-10.2 [facility] Comment on above: Order Comment: Speci men Type: BLOOD SPECIMEN Ordering Facility: [facility] Address: [address] [place], [place] [id number] Performed By: #### L IPNF #### [facility] CLIA [id number] [address] [place] [address] [place] Chloride [Moles/Vol] 102 mmol/L Normal 98-107 [facility] Comment on above: Order Comment: Speci men Type: BLOOD SPECIMEN Ordering Facility: [facility] Address: [address] [place] [address] Performed By: #### L IPNF #### [facility] CLIA [id number] [address] [place] [address] [place] CO2 [Moles/Vol] 25 mmol/L Normal 22-30 [facility] Comment on above: Order Comment: Speci men Type: BLOOD SPECIMEN Ordering Facility: [facility] Address: [address] [place] [address] Performed By: #### L IPNF #### [facility] CLIA [id number] [address] [place] [address] [place] Creatinine [Mass/Vol] 2.31 mg/dL High 0.73-1.22 [facility] Comment on above: Order Comment: Speci men Type: BLOOD SPECIMEN Ordering Facility: [facility] Address: [address] [place] [address] Performed By: #### L IPNF #### [facility] CLIA [id number] [address] [place] [address] [place] Creatinine and Glomerular filtration rate.predicted panel (S/P/Bld) 30 mL/min/1.73m??? Low >=60 [facility] Comment on above: Order Comment: Speci men Type: BLOOD SPECIMEN Ordering Facility: [facility] Address: [address] [place] [address] Result Comment: Soraya mated Glomerular Filtration Rate (eGFR) is calculated using the 2020 CKD-EPI creatinine equation. This equation utilizes serum creatinine, sex, and age as parameters. The creatinine assay has traceable calibration to isotope dilution-mass spectrometry. Refer to KDIGO guidelines for clinical interpretation. In patients with unstable renal function, e.g. those with acute kidney injury, the eGFR may not accurately reflect actual GFR. Performed By: #### L IPNF #### [facility] CLIA [id number] [address] [place], [place] [id number] [place] Glucose [Mass/Vol] 90 mg/dL Normal 74-99 [facility] Comment on above: Order Comment: Nasir grace Type: BLOOD SPECIMEN Ordering Facility: [facility] Address: [address] [place] [address] Result Comment: The [place] Diabetes Association (ADA) provides guidance for cutoff values for fasting glucose and random glucose. The ADA defines fasting as no caloric intake for at least 8 hours. Fasting plasma glucose results between 100 to 125 mg/dL indicate increased risk for diabetes (prediabetes). Fasting plasma glucose results greater than or equal to 126 mg/dL meet the criteria for diagnosis of diabetes. In the absence of unequivocal hyperglycemia, results should be confirmed by repeat testing. In a patient with classic symptoms of hyperglycemia or hyperglycemic crisis, random plasma glucose results greater than or equal to 200 mg/dL meet the criteria for diagnosis of diabetes. Reference: Standards of Medical Care in Diabetes 2016, [place] Diabetes Association. Diabetes Care. 2016.39(Suppl 1). Performed By: #### L IPNF #### [facility] CLIA [id number] [address] [place] [address] [place] Potassium [Moles/Vol] 5.1 mmol/L Normal 3.7-5.1 [facility] Comment on above: Order Comment: Nasir grace Type: BLOOD SPECIMEN Ordering Facility: [facility] Address: [address] [place] [address] Performed By: #### L IPNF #### [facility] CLIA [id number] [address] [place] [address] [place] Protein [Mass/Vol] 6.4 g/dL Normal 6.3-8.0 [facility] Comment on above: Order Comment: Nasir grace Type: BLOOD SPECIMEN Ordering Facility: [facility] Address: [address] [place] [address] Performed By: #### L IPNF #### [facility] CLIA [id number] [address] [place] [address] [place] Sodium [Moles/Vol] 134 mmol/L Low 136-144 [facility] Comment on above: Order Comment: Speci men Type: BLOOD SPECIMEN Ordering Facility: [facility] Address: [address] [place] [address] Performed By: #### L IPNF #### [facility] CLIA [id number] [address] [place] [address] [place] Urea nitrogen [Mass/Vol] 41 mg/dL High 9-24 [facility] Comment on above: Order Comment: Nasir men Type: BLOOD SPECIMEN Ordering Facility: [facility] Address: [address] [place] [address] Performed By: #### L IPNF #### [facility] CLIA [id number] [address] [place] [address] [place] HbA1c (Bld)on 05-29-2024 Average glucose Estimated from glycated hemoglobin (Bld) [Mass/Vol] 163 mg/dL Normal [facility] Comment on above: Order Comment: Nasir men Type: BLOOD SPECIMEN Ordering Facility: [facility] Address: [address] [place] [address] Result Comment: eAG: (Estimated average glucose) is a calculated value from HgbA1c and is plastic products sales representative of the average blood glucose level in the last 2-3 month period. Performed By: #### L IPNF #### [facility] CLIA [id number] [address] [place] [address] [place] HbA1c (Bld) [Mass fraction] 7.3 % High 4.3-5.6 [facility] Comment on above: Order Comment: Nasir sanjay Type: BLOOD SPECIMEN Ordering Facility: [facility] Address: [address] [place] [address] Result Comment: [place] Diabetes Association guidelines indicate that patients with HgbA1c in the range 5.7-6.4% are at increased risk for development of diabetes, and intervention by lifestyle modification may be beneficial. HgbA1c greater or equal to 6.5% is considered diagnostic of diabetes. Performed By: #### L IPNF #### [facility] CLIA [id number] [address] [place] [address] [facility] [place] LIPID PANEL, NONFASTINGon Cholesterol [Mass/Vol] 130 mg/dL Normal <200 [facility] Comment on above: Order Comment: Patriciai men Type: BLOOD SPECIMEN Ordering Facility: [facility] Address: [address] [place] [address] Result Comment: <200 mg/dL, Desirable 200-239 mg/dL, Borderline high >239 mg/dL, High Performed By: #### L IPNF #### [facility] CLIA [id number] [address] [place] [address] [place] HDL CHOLESTEROL, NF 39 mg/dL Low >39 [facility] Comment on above: Order Comment: Nasir grace Type: BLOOD SPECIMEN Ordering Facility: [facility] Address: [address] [place] [address] Result Comment: 40-5 9 mg/dL, Acceptable >59 mg/dL, High: Negative risk factor for coronary heart disease <40 mg/dL, Low: Positive risk factor for coronary heart disease Performed By: #### L IPNF #### [facility] CLIA [id number] [address] [place] [address] [place] LDL CHOLESTEROL, NF 68 mg/dL Normal <100 [facility] Comment on above: Order Comment: Patriciai men Type: BLOOD SPECIMEN Ordering Facility: [facility] Address: [address] [place] [address] Result Comment: <100 mg/dL, Optimal 100-129 mg/dL, Near optimal/above optimal 130-159 mg/dL, Borderline high 160-189 mg/dL, High >189 mg/dL, Very high Secondary prevention optimal LDL Cholesterol levels are recommended to be < 70 mg/dL Performed By: #### L IPNF #### [facility] CLIA [id number] [address] [place] [address] [place] LDL/HDL RATIO, NF 1.74 mg/dL Normal <2.54 [facility] Comment on above: Order Comment: Speci men Type: BLOOD SPECIMEN Ordering Facility: [facility] Address: [address] [place] [address] Result Comment: Fatoumata luciano: 1. National Cholesterol Education Program ATP III Guideline At-A-Glance Quick Desk Reference: National Heart, Lung, and Blood [employer]. National Institutes of Health. 2001: NIH Publication No. 01-3305. 2. An International Atherosclerosis Society position paper: global recommendations for the management of dyslipidemia: executive summary, Atherosclerosis. 2014: 232(2):410-413. Performed By: #### L IPNF #### [facility] CLIA [id number] [address] [place] [address] [place] NON HDL CHOL, NF 91 mg/dL Normal <130 [facility] Comment on above: Order Comment: Nasir grace Type: BLOOD SPECIMEN Ordering Facility: [facility] Address: [address] [place] [address] Result Comment: <130 mg/dL, Optimal 130-159 mg/dL, Near optimal/above optimal 160-189 mg/dL, Borderline high 190-219 mg/dL, High >219 mg/dL, Very high Secondary prevention optimal non HDL Cholesterol levels are recommended to be <100 mg/dL Performed By: #### L IPNF #### [facility] CLIA [id number] [address] [place] [address] [place] T CHOL/HDL RATIO NF 3.33 mg/dL Normal <5.10 [facility] Comment on above: Order Comment: Nasir grace Type: BLOOD SPECIMEN Ordering Facility: [facility] Address: [address] [place] [address] Performed By: #### L IPNF #### [facility] CLIA [id number] [address] [place] [address] [place] TRIGLYCERIDES, NF 117 mg/dL Normal <150 [facility] Comment on above: Order Comment: Nasir grace Type: BLOOD SPECIMEN Ordering Facility: [facility] Address: [address] [place] [address] Result Comment: <150 mg/dL, Normal 150-199 mg/dL, Borderline high 200-499 mg/dL, High >499 mg/dL, Very high Performed By: #### L IPNF #### [facility] CLIA [id number] [address] [place] [address] [place] VLDL CHOLESTEROL, NF 23 mg/dL Normal <30 [facility] Comment on above: Order Comment: Speci men Type: BLOOD SPECIMEN Ordering Facility: [facility] Address: [address] [place] [address] Performed By: #### L IPNF #### [facility] CLIA [id number] [address] [place] [address] [place] Echocardiogram study reportO rdered By: Emma Olmos on 04-10-2024 Study report [facility] [address] [place] [address]. [place] [address] Echo Complete 04/09/24 0946 MR#: [id number] Acct: [id number] Name: GAMALIEL GRIFFIN Rep #:[id number] : 1955 68 From: Emma almonte MD Attending Dr: Dr. Piedad Han MD Status: [facility] CLI Ordering Dr: Piedad Han MD Date: 04/09/24 Location: [facility] Sex: M C Admitted: Reason For Study Reason For Study: Thoracic Aortic Ectasia Procedure This was a 2D Doppler, Color Flow transthoracic echocardiogram. Exam performed in department. Left Ventricle Mildly dilated left ventricle. The global longitudinal strain = -12.2% (abnormal). The estimated ejection fraction is 25 %. There is evidence of diastolic dysfunction. Mild hypokinesis of the inferior wall and lateral wall. Severe hypokinesis of the anterior wall septum and apex. Right Ventricle Normal RV size. Normal systolic function. Atria The left and right atria are normal. No doppler evidence for ASD. Mitral Valve There is no mitral valve stenosis. Trivial mitral valve insufficiency. Tricuspid Valve There is no tricuspid stenosis. Trivial tricuspid valve insufficiency. Unable toestimate RV systolic pressure due to insufficient tricuspid regurgitant envelope. Aortic Valve Trisinus/trileaflet aortic valve. There is no aortic stenosis. No aortic valve insufficiency. Pulmonic Valve There is no pulmonic valvular stenosis. No pulmonic valve insufficiency. Great Vessels Normal sized aortic root. Pericardium/Pleural No pericardial effusion. MMode/2D Measurements & Calculations LVIDd: 6.0 cm IVSd: 0.96 cm Ao root diam: 3.8 cm LVIDs: 4.9 cm LVPWd: 1.1 cm RVDd: 4.1 cm FS: 17.9 % LAV(MOD-bp): 62.1 ml LVAd ap4: 45.2 cm2 SV(MOD-sp4): 66.2 ml LAV(MOD-bp) Indexed: 32.2 ml/m2 LVLd ap4: 9.6 cm SI(MOD-sp4): 34.4 ml/m2 LAV(MOD-sp2): 73.7 ml EDV(MOD-sp4): 175.3 ml LAV(MOD-sp4): 49.9 ml EDV(sp4-el): 180.2 ml LVAs ap4: 34.3 cm2 LVLs ap4: 8.9 cm ESV(MOD-sp4): 109.1 ml ESV(sp4-el): 112.1 ml EF(MOD-sp4): 37.8 % EF(sp4-el): 37.8 % __ SV(sp4-el): 68.0 ml LA A4 area: 17.3 cm2 LA dimension(2D): 4.7 cm __ RA A4 area: 12.1 cm2 TAPSE: 1.0 cm Time Measurements MV dec time: 0.28 sec Doppler Measurements & Calculations MV E max tyrone: 86.5 cm/sec Lat Peak E' Tyrone: 8.4 cm/sec Med Peak E' Tyrone: 6.8 cm/sec MV A max tyrone: 98.7 cm/sec E/E' lat: 10.3 E/E' med: 12.8 MV E/A: 0.88 __ MV V2 max: 130.0 cm/sec MV P1/2t max tyrone: 80.5 cm/sec Ao V2 max: 143.2 cm/sec MV max P.8 mmHg MV P1/2t: 102.1 msec Ao max P.2 mmHg MV V2 mean: 60.2 cm/sec Ao V2 mean: 102.4 cm/sec MV mean P.7 mmHg MV dec slope: 230.9 cm/sec2 Ao mean P.8 mmHg MV V2 VTI: 45.8 cm MVA(P1/2t): 2.2 cm2 Ao V2 VTI: 37.6 cm AV (velocity ratio): 0.61 __ LV V1 max: 89.4 cm/sec MR max tyrone: 474.5 cm/sec PA V2 max: 102.7 cm/sec LV V1 max P.2 mmHg MR max P.1 mmHg LV V1 mean P.0 mmHg LV V1 mean: 66.8 cm/sec LV V1 VTI: 23.1 cm ECHO/Echo Complete Interpretation Summary Mildly dilated left ventricle. The estimated ejection fraction is 25 %. There is evidence of diastolic dysfunction. Mild hypokinesis of the inferior wall and lateral wall. Severe hypokinesis of the anterior wall septum and apex Trivial mitral valve insufficiency. Ordering Physician: Piedad Han Referring Physician: Piedad Han Performed By: Darryl Lujan RCS 04/10/241641 Date _ Emma Olmos MD CC: Dr. 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 [address] Echo Complete 04/09/2446 MR#: [id number] Acct: [id number] Name: GAMALIEL GRIFFIN Rep #: [id number] : 1955 68 From: Emma Olmos MD Attending Dr: Dr. Piedad Han MD Status: R [facility] Ordering Dr: Piedad Han MD Date: 04/09/24 Location: [facility] Sex: M C Admitted: Reason For Study Reason For Study: Thoracic Aortic Ectasia Procedure This was a 2D Doppler, Color Flow transthoracic echocardiogram. Exam performed in department. Left Ventricle Mildly dilated left ventricle. The global longitudinal strain = -12.2% (abnormal). The estimated ejection fraction is 25 %. There is evidence of diastolic dysfunction. Mild hypokinesis of the inferior wall and lateral wall. Severe hypokinesis of the anterior wall septum and apex. Right Ventricle Normal RV size. Normal systolic function. Atria The left and right atria are normal. No doppler evidence for ASD. Mitral Valve There is no mitral valve stenosis. Trivial mitral valve insufficiency. Tricuspid Valve There is no tricuspid stenosis. Trivial tricuspid valve insufficiency. Unable to estimate RV systolic pressure due to insufficient tricuspid regurgitant envelope. Aortic Valve Trisinus/trileaflet aortic valve. There is no aortic stenosis. No aortic valve insufficiency. Pulmonic Valve There is no pulmonic valvular stenosis. No pulmonic valve insufficiency. Great Vessels Normal sized aortic root. Pericardium/Pleural No pericardial effusion. MMode/2D Measurements Calculations LVIDd: 6.0 cm IVSd: 0.96 cm Ao root diam: 3.8 cm LVIDs: 4.9 cm LVPWd: 1.1 cm RVDd: 4.1 cm FS: 17.9 % LAV(MOD-bp): 62.1 ml LVAd ap4: 45.2 cm2 SV(MOD-sp4): 66.2 ml LAV(MOD-bp) Indexed: 32.2 ml/m2 LVLd ap4: 9.6 cm SI(MOD-sp4): 34.4 ml/m2 LAV(MOD-sp2): 73.7 ml EDV(MOD-sp4): 175.3 ml LAV(MOD-sp4): 49.9 ml EDV(sp4-el): 180.2 ml LVAs ap4: 34.3 cm2 LVLs ap4: 8.9 cm ESV(MOD-sp4): 109.1 ml ESV(sp4-el): 112.1 ml EF(MOD-sp4): 37.8 % EF(sp4-el): 37.8 % SV(sp4-el): 68.0 ml LA A4 area: 17.3 cm2 LA dimension(2D): 4.7 cm RA A4 area: 12.1 cm2 TAPSE: 1.0 cm Time Measurements MV dec time: 0.28 sec Doppler Measurements Calculations MV E max tyrone: 86.5 cm/sec Lat Peak E' Tyrone: 8.4 cm/sec Med Peak E' Tyrone: 6.8 cm/sec MV A max tyrone: 98.7 cm/sec E/E' lat: 10.3 E/E' med: 12.8 MV E/A: 0.88 MV V2 max: 130.0 cm/sec MV P1/2t max tyrone: 80.5 cm/sec Ao V2 max: 143.2 cm/sec MV max P.8 mmHg MV P1/2t: 102.1 msec Ao max P.2 mmHg MV V2 mean: 60.2 cm/sec Ao V2 mean: 102.4 cm/sec MV mean P.7 mmHg MV dec slope: 230.9 cm/sec2 Ao mean P.8 mmHg MV V2 VTI: 45.8 cm MVA(P1/2t): 2.2 cm2 Ao V2 VTI: 37.6 cm AV (velocity ratio): 0.61 LV V1 max: 89.4 cm/sec MR max tyrone: 474.5 cm/sec PA V2 max: 102.7 cm/sec LV V1 max P.2 mmHg MR max P.1 mmHg LV V1 mean P.0 mmHg LV V1 mean: 66.8 cm/sec LV V1 VTI: 23.1 cm ECHO/Echo Complete Interpretation Summary Mildly dilated left ventricle. The estimated ejection fraction is 25 %. There is evidence of diastolic dysfunction. Mild hypokinesis of the inferior wall and lateral wall. Severe hypokinesis of the anterior wall septum and apex Trivial mitral valve insufficiency. Ordering Physician: Piedad Han Referring Physician: Piedad Han Performed By: Darryl Lujan RCS 04/10/241641 Date Emma Olmos MD CC: Dr. 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, [address] [id number] DOrdered By: Emely Han on 04-02-2024 Vitamin D 25-Hydroxy 49.0 ng/mL [facility] Comment on above: Vitamin D 25(OH) Sta tus Range Deficiency <20 ng/mL (50nmol/L) Insufficiency 20 - 30 ng/mL (50 - 75 nmol/L) Sufficiency 30 - 100 ng/mL (75 - 250 nmol/L) Toxicity >100 ng/mL (>250 nmol/L) Absolute lymphocyte countOrd ered By: Piedad Han on 04-02-2024 Lymphocytes Auto (Unsp spec) [#/Vol] 0.93 10*3/uL 0.83-4.51 [facility] Absolute neutrophil countOrd ered By: Piedad Han on 04-02-2024 Neutrophils (Bld) [#/Vol] 4.9 10*3/uL 2.0-7.7 [facility] Albumin to globulin ratioOrd ered By: Piedad Han on 04-02-2024 Albumin/Globulin [Mass ratio] 0.7 {ratio} Low 0.9-2.4 [facility] Automated lymphocyte count a s percentage of total leukocytesOrdered By: Piedad Han on 04-02-2024 Lymphocytes/100 WBC Auto (Unsp spec) 13.5 % Low 19-41 [facility] Basophil percentageOrdered B y: Piedad Han on 04-02-2024 Basophils/100 WBC (Bld) 0.6 % 0-1 [facility] Bilirubin Test strip Ql (U)O rdered By: Piedad Han on 04-02-2024 Bilirubin Ql (U) Negative Negative [facility] Bilirubin, totalOrdered By: Piedad Han on 04-02-2024 Bilirubin [Mass/Vol] 0.20 mg/dL 0.20-1.00 [facility] Comment on above: For patients on eltr ombopag therapy, use of Dimension Jarales TBIL is not recommended. Blood urea nitrogen (BUN)/cr eatinine ratioOrdered By: Piedad Han on 04-02-2024 Urea nitrogen/Creatinine [Mass ratio] 19.0 mg/mg 10-20 [facility] CBC W/Diff, Automatedon 03-16 Absolute Lymph 0.93 X10 3/uL Normal 0.83-4.51 [facility] Comment on above: Order Comment: Urine , Random Performed By: #### L 400.0001, L501.0900 #### [facility] [address] [place], [address] Absolute Neut 4.9 X10 3/uL Normal 2.0-7.7 [facility] Comment on above: Order Comment: Urine , Random Performed By: #### L 400.0001, L501.0900 #### [facility] [address] [place], [address] Basophils/100 WBC (Bld) 0.6 % Normal 0-1 [facility] Comment on above: Order Comment: Urine , Random Performed By: #### L 400.0001, L501.0900 #### [facility] [address] [place], [address] Eosinophils/100 WBC (Bld) 5.5 % High 0-5 [facility] Comment on above: Order Comment: Urine , Random Performed By: #### L 400.0001, L501.0900 #### [facility] [address] [place], [address] Erythrocyte distribution width (RBC) [Ratio] 13.3 % Normal 11.6-14.6 [facility] Comment on above: Order Comment: Urine , Random Performed By: #### L 400.0001, L501.0900 #### [facility] [address] [place], [address] Hematocrit (Bld) [Volume fraction] 41.6 % Normal 40-54 [facility] Comment on above: Order Comment: Urine , Random Performed By: #### L 400.0001, L501.0900 #### [facility] [address] [place], [address] Hemoglobin (Bld) [Mass/Vol] 13.2 g/dL Normal 13.0-16.5 [facility] Comment on above: Order Comment: Urine , Random Performed By: #### L 400.0001, L501.0900 #### [facility] [address] [place], [address] IG% 0.300 Normal 0.0-0.9 [facility] Comment on above: Order Comment: Urine , Random Result Comment: IG% - Immature Granulocytes (promyelocytes, myelocytes and metamyelocytes) > 1% indicates that a LEFT SHIFT is Present. Performed By: #### L 400.0001, L501.0900 #### [facility] [address] [place], [address] Lymphocytes/100 WBC (Bld) 13.5 % Low 19-41 [facility] Comment on above: Order Comment: Urine , Random Performed By: #### L 400.0001, L501.0900 #### [facility] [address] [place], [address] MCH (RBC) [Entitic mass] 29.7 pg Normal 27.0-32.0 [facility] Comment on above: Order Comment: Urine , Random Performed By: #### L 400.0001, L501.0900 #### [facility] [address] [place], [address] MCHC (RBC) [Mass/Vol] 31.7 g/dL Low 32-36 [facility] Comment on above: Order Comment: Urine , Random Performed By: #### L 400.0001, L501.0900 #### [facility] [address] [place], [address] MCV (RBC) [Entitic vol] 93.7 fL Normal 80-94 [facility] Comment on above: Order Comment: Urine , Random Performed By: #### L 400.0001, L501.0900 #### [facility] [address] [place], [address] Monocytes/100 WBC (Bld) 8.4 % Normal 0-10 [facility] Comment on above: Order Comment: Urine , Random Performed By: #### L 400.0001, L501.0900 #### [facility] [address] [place], [address] Neutrophils/100 WBC (Bld) 71.7 % High 47-70 [facility] Comment on above: Order Comment: Urine , Random Performed By: #### L 400.0001, L501.0900 #### [facility] [address] [place], [address] Nucleated RBC (Bld) [#/Vol] 0 10*3/uL Normal 0-5 [facility] Comment on above: Order Comment: Urine , Random Performed By: #### L 400.0001, L501.0900 #### [facility] [address] [place], [address] Platelet mean volume (Bld) [Entitic vol] 8.4 fL Normal 6.2-12.0 [facility] Comment on above: Order Comment: Urine , Random Performed By: #### L 400.0001, L501.0900 #### [facility] [address] [place], [address] Platelets (Bld) [#/Vol] 210 10*3/uL Normal 150-450 [facility] Comment on above: Order Comment: Urine , Random Performed By: #### L 400.0001, L501.0900 #### [facility] [address] [place], [address] RBC (Bld) [#/Vol] 4.44 10*6/uL Low 4.6-6.2 [facility] Comment on above: Order Comment: Urine , Random Performed By: #### L 400.0001, L501.0900 #### [facility] [address] [place], [address] RDW SD 45.2 fl High 35.1-43.9 [facility] Comment on above: Order Comment: Urine , Random Performed By: #### L 400.0001, L501.0900 #### [facility] [address] [place], [address] WBC (Bld) [#/Vol] 6.9 10*3/uL Normal 4.4-11.0 [facility] Comment on above: Order Comment: Urine , Random Performed By: #### L 400.0001, L501.0900 #### [facility] [address] [place], [address] Carbon dioxide measurementOr dered By: Piedad Han on 04-02-2024 CO2 [Moles/Vol] 27.0 mmol/L 21.0-32.0 [facility] Chloride measurementOrdered By: Piedad Han on 04-02-2024 Chloride [Moles/Vol] 104 mmol/L 98-107 [facility] Comprehensive Metabolic Prof ilon 04-02-2024 Albumin [Mass/Vol] 2.7 g/dL Low 3.2-5.0 [facility] Comment on above: Order Comment: Urine , Random Performed By: #### L 400.0001, L501.0900 #### [facility] [address] [place], [address] Albumin/Globulin [Mass ratio] 0.7 {ratio} Low 0.9-2.4 [facility] Comment on above: Order Comment: Urine , Random Performed By: #### L 400.0001, L501.0900 #### [facility] [address] [place], [address] ALK P 137 U/L High 45-117 [facility] Comment on above: Order Comment: Urine , Random Performed By: #### L 400.0001, L501.0900 #### [facility] [address] [place], [address] ALT [Catalytic activity/Vol] 53 U/L Normal 16-61 [facility] Comment on above: Order Comment: Urine , Random Performed By: #### L 400.0001, L501.0900 #### [facility] [address] [place], [address] AST [Catalytic activity/Vol] 40 U/L High 15-37 [facility] Comment on above: Order Comment: Urine , Random Performed By: #### L 400.0001, L501.0900 #### [facility] [address] [place], [address] Bilirubin [Mass/Vol] 0.20 mg/dL Normal 0.20-1.00 [facility] Comment on above: Order Comment: Urine , Random Result Comment: For patients on eltrombopag therapy, use of Dimension [place] TBIL is not recommended. Performed By: #### L 400.0001, L501.0900 #### [facility] [address] [place], [address] BUN/CRE 19.0 RATIO Normal 10-20 [facility] Comment on above: Order Comment: Urine , Random Performed By: #### L 400.0001, L501.0900 #### [facility] [address] [place], [address] CA,Total 9.0 mg/dL Normal 8.5-10.1 [facility] Comment on above: Order Comment: Urine , Random Performed By: #### L 400.0001, L501.0900 #### [facility] [address] [place], [address] Chloride [Moles/Vol] 104 mmol/L Normal 98-107 [facility] Comment on above: Order Comment: Urine , Random Performed By: #### L 400.0001, L501.0900 #### [facility] [address] [place], [address] CO2 [Moles/Vol] 27.0 mmol/L Normal 21.0-32.0 [facility] Comment on above: Order Comment: Urine , Random Performed By: #### L 400.0001, L501.0900 #### [facility] [address] [place], [address] Creatinine [Mass/Vol] 2.58 mg/dL High 0.70-1.30 [facility] Comment on above: Order Comment: Urine , Random Result Comment: The validity of the calculated GFR GFRAA in patients over 70 years has not been determined. Clinical correlation is essential. Performed By: #### L 400.0001, L501.0900 #### [facility] [address] [place], [address] EST GFR - AA 32 mL/min Low >60 [facility] Comment on above: Order Comment: Urine , Random Result Comment: Afri can Slovenian GFR Calc Performed By: #### L 400.0001, L501.0900 #### [facility] [address] [place], [address] GAP 6 Normal 5-15 [facility] Comment on above: Order Comment: Urine , Random Performed By: #### L 400.0001, L501.0900 #### [facility] [address] [place], [address] GFR/1.73 sq M.predicted among non-blacks MDRD (S/P/Bld) [Vol rate/Area] 26 mL/min/{1.73_m2} Low >60 [facility] Comment on above: Order Comment: Urine , Random Result Comment: Non- GFR Calc Performed By: #### L 400.0001, L501.0900 #### [facility] [address] [place], [address] Globulin (S) [Mass/Vol] 3.7 g/dL Normal 2.2-4.2 [facility] Comment on above: Order Comment: Urine , Random Performed By: #### L 400.0001, L501.0900 #### [facility] [address] [place], [address] Glucose [Mass/Vol] 200 mg/dL High 74-106 [facility] Comment on above: Order Comment: Urine , Random Result Comment: Gluc ose result greater than or equal to 200 mg/dL suggests DIABETES MELLITUS per A.D.A. criteria. Performed By: #### L 400.0001, L501.0900 #### [facility] [address] [place], [address] Potassium [Moles/Vol] 4.5 mmol/L Normal 3.5-5.1 [facility] Comment on above: Order Comment: Urine , Random Performed By: #### L 400.0001, L501.0900 #### [facility] [address] [place], [address] Sodium [Moles/Vol] 137 mmol/L Normal 136-145 [facility] Comment on above: Order Comment: Urine , Random Performed By: #### L 400.0001, L501.0900 #### [facility] [address] [place], [address] T PROT 6.4 g/dL Normal 6.4-8.2 [facility] Comment on above: Order Comment: Urine , Random Performed By: #### L 400.0001, L501.0900 #### [facility] [address] [place], [address] Urea nitrogen [Mass/Vol] 49 mg/dL High 7-18 [facility] Comment on above: Order Comment: Urine , Random Performed By: #### L 400.0001, L501.0900 #### [facility] [address] [place], [address] Eosinophil percentageOrdered By: Piedad Han on 04-02-2024 Eosinophils/100 WBC (Bld) 5.5 % High 0-5 [facility] Epithelial cells.squamous LM Ql (Urine sed)Ordered By: Piedad Han on 04-02-2024 Epithelial cells.squamous LM.HPF (Urine sed) [#/Area] 0 /[HPF] 0-5 [facility] Erythrocyte distribution wid th ratioOrdered By: Piedad Han on 04-02-2024 Erythrocyte distribution width (RBC) [Ratio] 13.3 % 11.6-14.6 [facility] Erythrocyte distribution wid th standard deviationOrdered By: Piedad Han on 04-02-2024 Erythrocyte distribution width (RBC) [Entitic vol] 45.2 fL High 35.1-43.9 [facility] Erythrocyte distribution width (RBC) [Ratio] 45.2 fl High 35.1-43.9 [facility] Estimated glomerular filtrat ion rate (GFR) AmericanOrdered By: Piedad Han on 04-02-2024 Estimated GFR (MDRD) Amer 32 mL/min Low >60 [facility] Comment on above: GFR Calc Glomerular filtration rate ( GFR) estimationOrdered By: Piedad Han on 04-02-2024 Estimated GFR (MDRD) Non-Af Amer 26 mL/min Low >60 [facility] Comment on above: Non- GFR Calc GFR/1.73 sq M.predicted among non-blacks MDRD (S/P/Bld) [Vol rate/Area] 26 mL/min/{1.73_m2} Low >60 [facility] Comment on above: Non- GFR Calc Glucose Ql (U)Ordered By: May Han on 04-02-2024 Glucose (U) [Mass/Vol] 1000 mg/dL High Normal [facility] Glucose measurementOrdered B y: Piedad Han on 04-02-2024 Glucose [Mass/Vol] 200 mg/dL High 74-106 [facility] Comment on above: Glucose result great er than or equal to 200 mg/dLsuggests DIABETES MELLITUS per A.D.A. criteria. Hematocrit Auto (Bld) [Volum e fraction]Ordered By: Piedad Han on 04-02-2024 Hematocrit (Bld) [Volume fraction] 41.6 % 40-54 [facility] Hemoglobin A1con 04-02-2024 HbA1c (Bld) [Mass fraction] 6.9 % High 3.8-5.6 [facility] Comment on above: Order Comment: Order Date: 04/02/24Order Info: [id number] - A1C Result Comment: Norm al < 5.7 % Prediabetic 5.7 - 6.4 % Diabetic >or= 6.5 % Please note range changes. Performed By: #### L 400.0001, L501.0900 #### [facility] [place], [address] Hemoglobin A1c percentageOrd ered By: Piedad Han on 04-02-2024 HbA1c (Bld) [Mass fraction] 6.9 % High 3.8-5.6 [facility] Comment on above: Normal < 5.7 % Predi abetic 5.7 - 6.4 % Diabetic >or= 6.5 % Please note range changes. Hemoglobin measurementOrdere d By: Piedad Han on 04-02-2024 Hemoglobin (Bld) [Mass/Vol] 13.2 g/dL 13.0-16.5 [facility] High density lipoprotein (HD L) measurementOrdered By: Piedad Han on 04-02-2024 Cholesterol in HDL [Mass/Vol] 48 mg/dL >40 [facility] Comment on above: The drugs N-Acetylcy steine and Metamizole may falsely depress this assay. Reference Range HDL <40 mg/dL Low HDL Cholesterol HDL >or= 60 mg/dL High HDL Cholesterol Immature granulocytes/100 WB C Auto (Bld)Ordered By: Piedad Han on 04-02-2024 Immature granulocytes/100 WBC (Bld) 0.300 % 0.0-0.9 [facility] Comment on above: IG% - Immature Granu locytes (promyelocytes, myelocytes and metamyelocytes) > 1% indicates that a LEFT SHIFT is Present. Intact parathyroid hormone ( iPTH) measurementOrdered By: Piedad Han on 04-02-2024 Parathyroid Hormone (Intact) 91.1 pg/mL High 18.4-80.1 [facility] Ketones Test strip Ql (U)Ord ered By: Piedad Han on 04-02-2024 Ketones Ql (U) Negative Negative [facility] - Chemistry and C hemistry - challengeOrdered By: Piedad Han on 04-02-2024 AST [Catalytic activity/Vol] 40 U/L High 15-37 [facility] Lipid Profileon 04-02-2024 Cholesterol [Mass/Vol] 125 mg/dL Normal 200 [facility] Comment on above: Order Comment: Order Date: 04/02/24Order Info: [id number] - CMPOrder Info: [id number] - LIPID Result Comment: <200 mg/dL Desirable 200-240 mg/dL Borderline >240 mg/dL High Risk Performed By: #### L 400.0001, L501.0900 #### [facility] [address] [place], [address] Cholesterol in HDL [Mass/Vol] 48 mg/dL Normal [facility] Comment on above: Order Comment: Order Date: 04/02/24Order Info: [id number] - CMPOrder Info: [id number] - LIPID Result Comment: The drugs N-Acetylcysteine and Metamizole may falsely depress this assay. Reference Range HDL <40 mg/dL Low HDL Cholesterol HDL >or= 60 mg/dL High HDL Cholesterol Performed By: #### L 400.0001, L501.0900 #### [facility] [address] [place], [address] Cholesterol in LDL [Mass/Vol] 56 mg/dL Normal 0-130 [facility] Comment on above: Order Comment: Order Date: 04/02/24Order Info: 07 - CMPOrder Info: [id number] - LIPID Performed By: #### L 400.0001, L501.0900 #### [facility] [address] [place], [address] Cholesterol in VLDL [Mass/Vol] 21 mg/dL Normal 5-40 [facility] Comment on above: Order Comment: Order Date: 04/02/24Order Info: 07 - CMPOrder Info: [id number] - LIPID Performed By: #### L 400.0001, L501.0900 #### [facility] [address] [place], [address] Triglyceride [Mass/Vol] 103 mg/dL Normal [facility] Comment on above: Order Comment: Order Date: 04/02/24Order Info: [id number] - CMPOrder Info: [id number] - LIPID Result Comment: The drugs N-Acetylcysteine and Metamizole may falsely depress this assay. Serum Triglycerides Reference Interval Normal <150 mg/dL Borderline high 150 - 199 mg/dL High 200 - 499 mg/dL Very High > or = 500 mg/dL Performed By: #### L 400.0001, L501.0900 #### [facility] [address] [place], [address] Low density lipoprotein (LDL ) cholesterol measurementOrdered By: Piedad Han on 04-02-2024 Cholesterol in LDL [Mass/Vol] 56 mg/dL 0-130 [facility] Lymphocytes Auto (Unsp spec) [#/Vol]Ordered By: Piedad Han on 04-02-2024 Lymphocytes (Bld) [#/Vol] 0.93 10*3/uL 0.83-4.51 [facility] Lymphocytes/100 WBC Auto (Un sp spec)Ordered By: Piedad Han on 04-02-2024 Lymphocytes/100 WBC (Bld) 13.5 % Low 19-41 [facility] MCV (mean corpuscular volume ) determinationOrdered By: Piedad Han on 04-02-2024 MCV (RBC) [Entitic vol] 93.7 fL 80-94 [facility] Mean corpuscular hemoglobin (MCH) determinationOrdered By: Piedad Han on 04-02-2024 MCH (RBC) [Entitic mass] 29.7 pg 27.0-32.0 [facility] Mean corpuscular hemoglobin concentration (MCHC) determinationOrdered By: Piedad Han on 04-02-2024 MCHC (RBC) [Mass/Vol] 31.7 g/dL Low 32-36 [facility] Mean platelet volume determi nationOrdered By: Piedad Han on 04-02-2024 Platelet mean volume (Bld) [Entitic vol] 8.4 fL 6.2-12.0 [facility] Microalb:Creat Ratio,Random URon 04-02-2024 MALB:CRE 3031.8 mg/g CRE High <30 mg/g CRE [facility] Comment on above: Order Comment: Order Date: 04/02/24Order Info: [id number] - MIACREOrder Info: [id number] - MIALB Performed By: #### L 400.0001, L501.0900 #### [facility] [address] [place], [address] MICROALBUMIN,UR 1810.0 mg/L Normal NO RANGE EST. [facility] Comment on above: Order Comment: Order Date: 04/02/24Order Info: [id number] - MIACREOrder Info: [id number] - MIALB Performed By: #### L 400.0001, L501.0900 #### [facility] [address] [place], [place], [address] Microscopic analysis of urin e for red blood cells (RBC)Ordered By: Piedad Han on 04-02-2024 Microscopic analysis of urine for red blood cells (RBC) 0-5 SEEN /hpf 0-5 [facility] Urine RBC 0-5 SEEN /hpf 0-5 [facility] Monocyte percentageOrdered B y: Piedad Han on 04-02-2024 Monocytes/100 WBC (Bld) 8.4 % 0-10 [facility] Mucus LM Ql (Urine sed)Order ed By: Piedad Han on 04-02-2024 Mucus Ql (Urine sed) 0 SEEN /hpf [facility] Neutrophil percentageOrdered By: Piedad Han on 04-02-2024 Neutrophils/100 WBC (Bld) 71.7 % High 47-70 [facility] Nitrite Test strip Ql (U)Ord ered By: Piedad Han on 04-02-2024 Nitrite Ql (U) Negative Negative [facility] Nucleated red blood cell per centageOrdered By: Piedad Han on 04-02-2024 Nucleated RBC/100 WBC (Bld) [Ratio] 0 % 0-5 [facility] PTHINon 04-02-2024 PTH 91.1 pg/mL High 18.4-80.1 [facility] Comment on above: Order Comment: Urine , Random Performed By: #### L 400.0001, L501.0900 #### [facility] [address] [place], [place], [address] Platelet countOrdered By: May Han on 04-02-2024 Platelets (Bld) [#/Vol] 210 10*3/uL 150-450 [facility] Potassium measurementOrdered By: Piedad Han on 04-02-2024 Potassium [Moles/Vol] 4.5 mmol/L 3.5-5.1 [facility] Protein Test strip Ql (U)Ord ered By: Piedad Han on 04-02-2024 Protein Ql (U) 500 mg/dl High Negative [facility] Protein+Creatinine Ratio,Uri neon 04-02-2024 PROT:CRE RATIO 3933 mg/g CRE High 0-200 [facility] Comment on above: Order Comment: CLEAN CATCH Performed By: #### L 400.0001 #### [facility] [address] [place], [address] Protein (U) [Mass/Vol] 234.8 mg/dL High <11.9 [facility] Comment on above: Order Comment: CLEAN CATCH Performed By: #### L 400.0001 #### [facility] [address] [place], [address] UR CREAT 59.70 mg/dL Normal NO RANGE EST. [facility] Comment on above: Order Comment: CLEAN CATCH Performed By: #### L 400.0001 #### [facility] [address] [place], [address] Protein/Creatinine (U) [Mass ratio]Ordered By: Piedad Han on 04-02-2024 Urine Protein/Creatinine Ratio 3933 mg/g CRE High 0-200 [facility] RBC Auto (Bld) [#/Vol]Ordere d By: Piedad Han on 04-02-2024 RBC (Bld) [#/Vol] 4.44 10*6/uL Low 4.6-6.2 [facility] Random urine microalbumin me asurementOrdered By: Piedad Han on 04-02-2024 Urine Random Microalbumin 1810.0 mg/L NO RANGE EST. [facility] Random urine protein measure mentOrdered By: Piedad Han on 04-02-2024 Protein (U) [Mass/Vol] 234.8 mg/dL High 0.0-11.8 [facility] Serum anion gap measurementO rdered By: Piedad Han on 04-02-2024 Anion gap [Moles/Vol] 6 mmol/L 5-15 [facility] Serum globulin measurementOr dered By: Piedad Han on 04-02-2024 Globulin (S) [Mass/Vol] 3.7 g/dL 2.2-4.2 [facility] Serum or plasma alanine menezes otransferase (ALT) measurementOrdered By: Piedad Han on 04-02-2024 ALT [Catalytic activity/Vol] 53 U/L 16-61 [facility] Serum or plasma albumin priyanka urement (mass/volume)Ordered By: Piedad Han on 04-02-2024 Albumin [Mass/Vol] 2.7 g/dL Low 3.2-5.0 [facility] Serum or plasma alkaline enio sphatase measurementOrdered By: Piedad Han on 04-02-2024 ALP [Catalytic activity/Vol] 137 U/L High 45-117 [facility] Serum or plasma calcium priyanka urement (mass/volume)Ordered By: Piedad Han on 04-02-2024 Calcium [Mass/Vol] 9.0 mg/dL 8.5-10.1 [facility] Serum or plasma cholesterol measurement (mass/volume)Ordered By: Piedad Han on 04-02-2024 Cholesterol [Mass/Vol] 125 mg/dL <200 [facility] Comment on above: <200 mg/dL Desirable 200-240 mg/dL Borderline >240 mg/dL High Risk Serum or plasma creatinine m easurement (mass/volume)Ordered By: Piedad Han on 04-02-2024 Creatinine [Mass/Vol] 2.58 mg/dL High 0.70-1.30 [facility] Comment on above: The validity of the calculated GFR & GFRAA in patients over 70 years has not been determined. Clinical correlation is essential. Serum or plasma urea nitroge n measurement (mass/volume)Ordered By: Piedad Han on 04-02-2024 Urea nitrogen [Mass/Vol] 49 mg/dL High 7-18 [facility] Sodium levelOrdered By: Piedad Han on 04-02-2024 Sodium [Moles/Vol] 137 mmol/L 136-145 [facility] Squamous epithelial cells de tection in urine sediment by light microscopyOrdered By: Piedad Han on 04-02-2024 Epithelial cells.squamous LM Ql (Urine sed) 0-5 SEEN /hpf 0-5 [facility] Total proteinOrdered By: Zhang Han on 04-02-2024 Protein [Mass/Vol] 6.4 g/dL 6.4-8.2 [facility] Triglycerides measurementOrd ered By: Piedad Han on 04-02-2024 Triglyceride [Mass/Vol] 103 mg/dL <199 [facility] Comment on above: The drugs N-Acetylcy steine and Metamizole may falsely depress this assay.Serum Triglycerides Reference Interval Normal <150 mg/dL Borderline high 150 - 199 mg/dL High 200 - 499 mg/dL Very High > or = 500 mg/dL Urinalysis, Completeon 04-02 EPI,SQUAMOUS 0-5 SEEN Normal 0-5 [facility] Comment on above: Order Comment: CLEAN CATCH Performed By: #### L 400.0001 #### [facility] [address] [place], [address] RBC 0-5 SEEN Normal 0-5 [facility] Comment on above: Order Comment: CLEAN CATCH Performed By: #### L 400.0001 #### [facility] [address] [place], [address] WBC 0-5 SEEN Normal 0-5 [facility] Comment on above: Order Comment: CLEAN CATCH Performed By: #### L 400.0001 #### [facility] [address] [place], [address] BACTERIA 0 SEEN Normal None Seen [facility] Comment on above: Order Comment: CLEAN CATCH Performed By: #### L 400.0001 #### [facility] [address] [place], [address] Mucus Ql (Urine sed) 0 SEEN Normal [facility] Comment on above: Order Comment: CLEAN CATCH Performed By: #### L 400.0001 #### [facility] [address] [place], [address] Urine albumin/creatinine rat io for detection of microalbuminuriaOrdered By: Piedad Han on 04-02-2024 Urine Microalbumin/Creatinine Ratio 3031.8 mg/g CRE High <30 [facility] Urine blood detectionOrdered By: Piedad Han on 04-02-2024 Urine Occult Blood 25 /ul High Negative [facility] Urine clarityOrdered By: Zhang Han on 04-02-2024 Clarity (U) Clear Clear [facility] Urine color determinationOrd ered By: Piedad Han on 04-02-2024 Color (U) Yellow Yellow [facility] Urine creatinine measurement (mass/volume)Ordered By: Piedad Han on 04-02-2024 Creatinine (U) [Mass/Vol] 59.70 mg/dL NO RANGE EST. [facility] Urine glucose detectionOrder ed By: Piedad Han on 04-02-2024 Glucose Ql (U) 1000 mg/dl High Normal [facility] Urine leukocyte esterase det ection by dipstickOrdered By: Piedad Han on 04-02-2024 Leukocyte esterase Test strip Ql (U) Negative Negative [facility] Urine pHOrdered By: Piedad ring on 04-02-2024 pH (U) 6.0 [pH] 5.0 - 8.0 [facility] Urine protein/creatinine mas s ratioOrdered By: Piedad Han on 04-02-2024 Protein/Creatinine (U) [Mass ratio] 3933 mg/g CRE High 0-200 [facility] Urine sediment bacteria coun t by microscopy (number/high power field)Ordered By: Piedad Han on 04-02-2024 Bacteria LM.HPF (Urine sed) [#/Area] 0 /[HPF] None Seen [facility] Urine specific gravity measu rementOrdered By: Piedad Han on 04-02-2024 Specific gravity (U) [Rel density] 1.015 1.002-1.03 0 [facility] Urine urobilinogen measureme ntOrdered By: Piedad Han on 04-02-2024 Urobilinogen Ql (U) Normal mg/dl Normal [facility] Urobilinogen Ql (U)Ordered B y: Piedad Han on 04-02-2024 Urine Urobilinogen Normal mg/dl Normal [facility] Very low density lipoprotein (VLDL) cholesterol measurementOrdered By: Piedad Han on 04-02-2024 Very low density lipoprotein (VLDL) cholesterol measurement 21 mg/dL 5-40 [facility] VLDL Cholesterol 21 mg/dL 5-40 [facility] White blood cell (WBC) count Ordered By: Piedad Han on 04-02-2024 WBC (Bld) [#/Vol] 6.9 10*3/uL 4.4-11.0 [facility] White blood cell countOrdere d By: Piedad Han on 04-02-2024 Urine WBC 0-5 SEEN /hpf 0-5 [facility] White blood cell count 0-5 SEEN /hpf 0-5 [facility] CNOVon 01-03-2024 CNOV Office Visit (CARDMM ) -- GAMALIEL GRIFFIN ([id number]) 1955 M Date Time Provider Department 01/03/24 11:40 AM YESSENIA OCONNOR During your visit today, we recorded the following information about you: Pulse Blood pressure Weight Height 60/minute 126/70 80 kg 1.791 m Yessenia Oconnor DO 01/03/2024 12:21 PM Signed [facility] Department of Cardiovascular Medicine SECTION OF REGIONAL CARDIOLOGY/[facility] OUTPATIENT VISIT DATE January 03, 2024 OUTPATIENT VISIT TYPE NEW PATIENT Name: Gamaliel Thakkar Gaby : 1955 Date: January 03, 2024 PRIMARY CARE PHYSICIAN: MD John Menendez [address] [place] [address] REFERRING PHYSICIAN: No referring provider defined for this encounter. CHIEF COMPLAINT: Patient presents with: CARD Follow Up 6 Month: No new cardiac concerns IMPRESSION / PLAN: 1. Coronary artery disease status post coronary bypass grafting x 4 on January 26, 2023 [facility] with a SULLIVAN to the LAD, SVG to the PDA, SVG to OM 2 and left radial artery to the ramus. Patient is doing very well from a cardiac standpoint with no evidence of anginal symptoms and continues to exercise on a daily basis without concerns. We discussed short and long-term prognosis and secondary prevention measures. 2. Ischemic cardiomyopathy with an ejection fraction of 40%. Patient had an echocardiogram on May 05, 2023 with an improved ejection fraction of 40% from 29% in December 2022. I will continue to follow with periodic echocardiograms and maximize his heart failure medications. He is unable to take CHINA/ARB and is on hydralazine and nitroglycerin combination. 2. Hypertension. Patient is somewhat confused on his current medications this morning and will be messaging me the exact dosages and will fine-tune this medication. He is having some occasional hypotensive symptoms and most likely will be stopping the isosorbide and hydralazine and simplifying his metoprolol to once a day. He is having some lower extremity edema secondary to venous insufficiency after his venous harvesting of both legs and amlodipine. 3. Hyperlipidemia. Recommended a goal LDL of 50 and will be obtaining his labs from his family physician on a regular basis. 4. Moderate chronic renal sufficiency with a baseline creatinine approximately 2.6. Patient is followed closely by nephrology. Follow Up Instructions Return in about 1 year (around 01/02/2025). ORDERS FOR TODAY'S VISIT: Office Visit on 01/03/24 ECG COMPLETE HISTORY OF PRESENT ILLNESS: Gamaliel Griffin is an 68 year old male with a past history of hypertension, hyperlipidemia, moderate renal insufficiency and recent findings of coronary artery disease requiring CABG at [facility] in January 2023 and presents today for follow-up. He is doing very well from a cardiac standpoint with no complaints of chest pain, significant exertional shortness of breath, palpitations, syncope or near syncope. He does have some lower extremity edema left greater than right. He is performing all of his activities including daily exercise without complaints of chest pain or shortness of breath. PAST MEDICAL HISTORY Diagnosis Date Anemia, unspecified CAD (coronary artery disease) Cardiomyopathy (HCC) Congestive heart failure (HCC) Diabetes mellitus (HCC) Dyslipidemia Essential hypertension Gout H/O heart artery stent Hypothyroidism Kidney stone S/P CABG x 4 01/26/2023 Sleep apnea PAST SURGICAL HISTORY Procedure Laterality Date CABG, VEIN, FOUR 01/26/2023 01/26/2023: CABGx4: SULLIVAN to LAD SVG to RPDA/SVG to OM2 /Left Radial to Ramus @ [facility] COLONOSCOPY FLX DX W/COLLJ SPEC WHEN PFRMD 06/23/2020 PAST SURGICAL HISTORY OF Cardiac stent x 4 SOCIAL HISTORY Social History Tobacco Use Smoking status: Never Smokeless tobacco: Never Substance Use Topics Alcohol use: Never Drug use: Never FAMILY HISTORY Problem Relation Age of Onset other (passed at age 82) Mother Intersitial Lung Disease Mother Heart Attack Father other (passed at age 53) Father Cancer Paternal Grandfather Diabetes Sister other (valve disease) Sister other (atrial fib) Sister ALLERGIES: ALLERGIES Allergen Reactions Lisinopril Swelling MEDICATIONS: KERENDIA 20 mg tablet Take 20 mg by mouth once daily. blood sugar diagnostic (TRUE METRIX GLUCOSE TEST STRIP) test strip Use as instructed to check blood sugar 4 times a day insulin glargine (LANTUS SOLOSTAR U-100 INSULIN) 100 unit/mL (3 mL) Inject 14 units once daily (Patient taking differently: Inject 15 Units subcutaneously. Inject 14 units once daily) insulin aspart U-100 (NOVOLOG FLEXPEN U-100 INSULIN) 100 unit/mL (3 mL) Inject 5 units with meals PLUS SS#1 - pre meal blood sugar onl (more content not included)... Normal [facility] [id number] 01-03-2024 ECG01 Ventricular Rate : 6 0 BPM Atrial Rate : 60 BPM P-R Interval : 168 ms QRS Duration : 88 ms Q-T Interval : 408 ms QTC Calculation(Bazett) : 408 ms Calculated P [place] : 52 degrees Calculated R [place] : 58 degrees Calculated T [place] : 97 degrees NORMAL SINUS RHYTHM ANTEROSEPTAL MYOCARDIAL INFARCTION , 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 ECG Confirmed by YESSENIA OCONNOR DO ([id number]) on 01/04/2024 12:10:51 PM NAME : GAMALIEL GRIFFIN PID : [id number] : 1955 Gender : Male Race : ORD : Procedure Date : Jan 03 2024 11:57:44 Edit Date : Jan 04 2024 12:10:54 Diagnosis: NORMAL SINUS RHYTHM ANTEROSEPTAL MYOCARDIAL INFARCTION , 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 ECG Confirmed by YESSENIA OCONNOR DO ([id number]) on 01/04/2024 12:10:51 PM Test Reason : Location : 211 : [facility] Overread By : YESSENIA OCONNOR DO Edited By : YESSENIA OCONNOR DO Referred By : YESSENIA OCONNOR Acquired by : Naomy CUEVA [facility] CNCOon 12-27-2023 CNCO Letter Text [facility] CNPNon 12-27-2023 CNPN Telephone (TXCTGL) -- GAMALIEL GRIFFIN ([id number]) 1955 M Date Time Provider Department 12/27/23 BERNARDINO HENRIQUEZ TXCTGL During your visit today, we recorded the following information about you: Allergies As of Date: 12/27/2023 Noted Allergy Reaction LISINOPRIL 09/30/2022 7 - Swelling Date Reviewed: 11/08/2023 Reviewed by: Shasta Garsia RN - Fully Assessed Reason for Visit: Referral - Kidney Txp [[id number]] Cmt: Closed-referred too early Prescriptions as of 12/27/2023 - KERENDIA 20 mg tablet Take 20 mg by mouth once daily. - blood sugar diagnostic (TRUE METRIX GLUCOSE TEST STRIP) test strip Use as instructed to check blood sugar 4 times a day - insulin glargine (LANTUS SOLOSTAR U-100 INSULIN) 100 unit/mL (3 mL) Inject 14 units once daily - insulin aspart U-100 (NOVOLOG FLEXPEN U-100 INSULIN) 100 unit/mL (3 mL) Inject 5 units with meals PLUS SS#1 - pre meal blood sugar only (1 unit for every 50 over 150 PRE MEAL) TDD 20 units - Blood-Glucose Sensor (FREESTYLE YAZMIN 3 SENSOR) kathleen CHANGE sensor every 14 days. USE FOR CONTINUOUS GLUCOSE MONITORING. MULTIPLE INSULIN INJECTIONS. E11.9 - metoprolol succinate ER (TOPROL XL) 50 mg 24 hr tablet Take 1 tablet by mouth two times a day. - dapagliflozin propanediol (FARXIGA) 10 mg tablet Take 1 tablet by mouth daily with breakfast. - senna-docusate (SENNA-S) 8.6-50 mg per tablet Take 1 tablet by mouth two times a day. Continue while on narcotic pain meds AND/or as needed thereafter for mild post-op constipation AND stool softening. - Insulin Union, Disposable, (BD ULTRA-FINE KENN PEN NEEDLE) 32 gauge x Use to inject insulin 4 times a day - Lancets lancets Use as directed to check blood sugars 4 times a day - levothyroxine (SYNTHROID) 175 mcg tablet Take 175 mcg by mouth daily before breakfast. - OTC PRODUCT Stool softner daily - rosuvastatin (CRESTOR) 20 mg tablet Take 20 mg by mouth once daily. - amLODIPine (NORVASC) 10 mg tablet Take 10 mg by mouth once daily. - aspirin, enteric coated (ASPIRIN, ENTERIC COATED) 81 mg EC tablet Take 81 mg by mouth once daily. - allopurinol (ZYLOPRIM) 300 mg tablet Take 300 mg by mouth once daily. - buPROPion SR (ZYBAN SR; WELLBUTRIN SR) 150 mg 12 hr tablet Take 150 mg by mouth twice daily. Problem List As Of Date 12/27/2023 Noted Resolved Ischemic cardiomyopathy [I25.5] 01/10/2023 CAD (coronary artery disease) [I25.10] 01/10/2023 Hypertensive kidney disease with stage 3 chroni*01/10/2023 Essential hypertension [I10] 01/10/2023 Stage 3b chronic kidney disease (HCC) [N18.32] 01/10/2023 Type 2 diabetes mellitus with stage 3b chronic *01/10/2023 Discharge planning issues [Z75.8] 01/24/2023 Special screening for malignant neoplasms, colo*01/24/2023 Acute on chronic systolic congestive heart fail*01/26/2023 01/31/2023 HLD (hyperlipidemia) [E78.5] 01/26/2023 Hypothyroid [E03.9] 01/26/2023 Gout [M10.9] 01/26/2023 JESENIA (obstructive sleep apnea) [G47.33] 01/26/2023 Mitral regurgitation [I34.0] 01/26/2023 Coronary artery disease due to lipid rich plaqu*01/26/2023 ABLA (acute blood loss anemia) [D62] 01/28/2023 Thrombocytopenia (HCC) [D69.6] 01/28/2023 01/30/2023 Hypervolemia [E87.70] 01/28/2023 Hyperkalemia [E87.5] 01/28/2023 01/30/2023 Hyponatremia [E87.1] 01/28/2023 01/30/2023 Postoperative pain [G89.18] 01/30/2023 Atrial fibrillation with RVR (HCC) [I48.91] 01/30/2023 Insulin dose changed (HCC) [Z79.4] 01/30/2023 Chronic systolic congestive heart failure (HCC)*01/31/2023 Summary [Z91.89] 02/01/2023 Hyperparathyroidism (HCC) [E21.3] 08/04/2023 Encounter Status:Closed by BERNARDINO HENRIQUEZ on 12/27/23 [facility] CNCOon 12-26-2023 CNCO Letter Text [facility] CNPNon 12-22-2023 CNPN Telephone (TXCTGL) -- GAMALIEL GRIFFIN ([id number]) 1955 M Date Time Provider Department 12/22/23 KIDNEY TXP COORDINATORS TXCTGL During your visit today, we recorded the following information about you: Cely Dumont 12/22/2023 12:52 PM Signed KIDNEY TRANSPLANT REFERRAL (enter above which organ the patient needs; Kidney, Pancreas or Kidney/Pancreas) Is this referral for a Safety Net or HIV Patient? No (Safety Net = Pt needing an additional transplant within 12 months for any organ) Gamaliel Griffin [phone] Spoke with: Patient Best Contact FOR PANCREAS AND KIDNEY/PANCREAS TRANSPLANT AGE 55+ is a HARD STOP If patient is NOT on Dialysis AND has a GFR >21 is a HARD STOP REFERRING STOCK HANDLER / PHYSICIAN:Dr. Denis Norris Have you ever been evaluated for kidney/pancreas transplant? No If YES, where? N/A Status of listing/evaluation: N/A Have you had a previous transplant? No Have you had one or both kidneys removed: No Reason: N/A OUT OF STATE MEDICAID PATIENTS: APC - run the Medicaid through [facility] to determine if the coverage is Out of Network (OON) with [facility]. If the Medicaid is OON, inform the patient that their PCP will need to send a referral to the Out of State Medicaid for a Transplant Evaluation. Have you been seen at another Transplant Center that was in-network with your Out of State (OOS) Medicaid and denied a Transplant Evaluation? No Has your PCP sent in a referral for transplant to your (OOS) Medicaid trimming caser? No _ Height: 5.9 Weight: 170 BMI: 25.1 KIDNEY TRANSPLANT BMI>42 is a HARD STOP PANCREAS TRANSPLANT BMI>32 is a HARD STOP Have you had weight loss without trying within the last 30 days? No If YES, please complete the Malnutrition Screening Tool (MST). Malnutrition Screening Tool (MST) If YES, how much weight have you lost? Unsure- 2 Weight loss score: 0 Have you been eating poorly in the last week because of a decreased appetite? No- 0 Appetite score: 0 Total MST score (weight loss + appetite scores): 0 Score of 2 or more = referral to registered dietitian for an individual appointment _- ____ Any history of Smoking/Vaping/Nicotine products: Non-smoker If a current smoker, this is a HARD STOP Packs/Day N/A X # of Yrs smoked N/A = Pack Yrs N/A Oxygen use: No If on continuous oxygen this is a HARD STOP Blood Transfusion: Are you willing to accept a blood transfusion if needed? Yes If NO this is a HARD STOP Assistive devices: No assistive device Activity Level: Athletic COPD/Emphysema/Other pulmonary problem: No Dialysis: No Days: N/A Dialysis start date: N/A If not on dialysis, what is your GFR? 26 Do you have Diabetes? Type 2 Age diagnosed: 58 Insulin dependent: Yes Hypoglycemic unawareness: No Have you had a Kidney Biopsy: No Have you had a Liver Biopsy: No Dx of Cirrhosis? No Dx of Hepatitis? No Hx of ETOH? No Hx of Drug use? No Hx of Psychiatric disorder? No Dx of HIV/AIDS? No if yes, Infectious Disease doctor name/where? Hx of Cancer? no Hx of Hypertension? Yes Hx of VT/Heart Attack? Yes, 2013. [facility] Hx of TIA/CVA or Stroke? No Are you on a blood thinner? Yes If YES which medication are you on? Aspirin Have you had a CABG or STENTS? Yes. If yes, date and location: 10 years ago [facility] Have you ever had a Stress Test? Yes. If yes, date and location: 2022 [facility] Have you ever had an Echo? Yes. If yes, date and location: 2022 [facility] Have you ever had a Cardiac Cath? Yes. If yes, date and location: [address] [facility] [address] Abdomen/Pelvis: No Mammogram: No Pap Test: No Colonoscopy: Yes. If yes, date and location: [facility] 2023 Hx of Lupus? No Sickle Cell Trait or Disease: No Have you had any prior surgeries? Yes, Quadruple bypass surgery in 2022 Do you have a potential living donor? No [facility] Is the patient signed up for [employer]? Yes If YES - send patient the Kidney/Pancreas New Referral Message. If NO - obtain their email address AND send [employer] [facility] [employer] sign up information: email address: Is the patient okay with having a Virtual Appt: Yes What facilities do we need outside records from: N/A Have records been retrieved from Care Everywhere: Yes. Have records been requested from [facility]? No Additional Comments about patient/evaluation: No Route the referral to the Kidney Txp valve machine operator, Bernardino Henriquez. Hoda Julia Allergies As of Date: 12/22/2023 Noted Allergy Reaction LISINOPRIL 09/30/2022 7 - Swelling Date Reviewed: 11/08/2023 Reviewed by: Vargas Garsia (more content not included)... Normal [facility] CBC W/Diff, Automatedon 10- Absolute Lymph 1.05 X10 3/uL Normal 0.83-4.51 [facility] Comment on above: Order Comment: Order Date: 12/05/23 Order Info: 0184-1 - CBCD Performed By: #### L [id number], L500.4050, L500.4100, L501.5200, L100.0100, L501.9985 #### [facility] [address] [place], [place], [id number] [phone] Absolute Neut 4.9 X10 3/uL Normal 2.0-7.7 [facility] Comment on above: Order Comment: Order Date: 12/05/23 Order Info: 0184-1 - CBCD Performed By: #### L [id number], L500.4050, L500.4100, L501.5200, L100.0100, L501.9985 #### [facility] [address] [place], [address] Basophils/100 WBC (Bld) 0.7 % Normal 0-1 [facility] Comment on above: Order Comment: Order Date: 12/05/23 Order Info: 0184-1 - CBCD Performed By: #### L [id number], L500.4050, L500.4100, L501.5200, L100.0100, L501.9985 #### [facility] [address] [place], [address] Eosinophils/100 WBC (Bld) 6.1 % High 0-5 [facility] Comment on above: Order Comment: Order Date: 12/05/23 Order Info: 018- - CBCD Performed By: #### L [id number], L500.4050, L500.4100, L501.5200, L100.0100, L501.9985 #### [facility] [address] [place], [address] Erythrocyte distribution width (RBC) [Ratio] 13.7 % Normal 11.6-14.6 [facility] Comment on above: Order Comment: Order Date: 12/05/23 Order Info: 01805-14 - CBCD Performed By: #### L [id number], L500.4050, L500.4100, L501.5200, L100.0100, L501.9985 #### [facility] [address] [place], [address] Hematocrit (Bld) [Volume fraction] 40.3 % Normal 40-54 [facility] Comment on above: Order Comment: Order Date: 12/05/23 Order Info: 01805-14 - CBCD Performed By: #### L [id number], L500.4050, L500.4100, L501.5200, L100.0100, L501.9985 #### [facility] [address] [place], [address] Hemoglobin (Bld) [Mass/Vol] 13.3 g/dL Normal 13.0-16.5 [facility] Comment on above: Order Comment: Order Date: 12/05/23 Order Info: 018- - CBCD Performed By: #### L 501.9520, L500.4050, L500.4100, L501.5200, L100.0100, L501.9985 #### [facility] [address] [place], [address] IG% 0.300 Normal 0.0-0.9 [facility] Comment on above: Order Comment: Order Date: 12/05/23 Order Info: 018- - CBCD Result Comment: IG% - Immature Granulocytes (promyelocytes, myelocytes and metamyelocytes) > 1% indicates that a LEFT SHIFT is Present. Performed By: #### L 501.9520, L500.4050, L500.4100, L501.5200, L100.0100, L501.9985 #### [facility] [address] [place], [address] Lymphocytes/100 WBC (Bld) 15.0 % Low 19-41 [facility] Comment on above: Order Comment: Order Date: 12/05/23 Order Info: 0184 - CBCD Performed By: #### L 501.9520, L500.4050, L500.4100, L501.5200, L100.0100, L501.9985 #### [facility] [address] [place], [address] MCH (RBC) [Entitic mass] 31.0 pg Normal 27.0-32.0 [facility] Comment on above: Order Comment: Order Date: 12/05/23 Order Info: 0184- - CBCD Performed By: #### L 501.9520, L500.4050, L500.4100, L501.5200, L100.0100, L501.9985 #### [facility] [address] [place], [address] MCHC (RBC) [Mass/Vol] 33.0 g/dL Normal 32-36 [facility] Comment on above: Order Comment: Order Date: 12/05/23 Order Info: 0184- - CBCD Performed By: #### L 501.9520, L500.4050, L500.4100, L501.5200, L100.0100, L501.9985 #### [facility] [address] [place], [address] MCV (RBC) [Entitic vol] 93.9 fL Normal 80-94 [facility] Comment on above: Order Comment: Order Date: 12/05/23 Order Info: 018- - CBCD Performed By: #### L 501.9520, L500.4050, L500.4100, L501.5200, L100.0100, L501.9985 #### [facility] [address] [place], [address] Monocytes/100 WBC (Bld) 8.4 % Normal 0-10 [facility] Comment on above: Order Comment: Order Date: 12/05/23 Order Info: 01805-14 - CBCD Performed By: #### L 501.9520, L500.4050, L500.4100, L501.5200, L100.0100, L501.9985 #### [facility] [address] [place], [address] Neutrophils/100 WBC (Bld) 69.5 % Normal 47-70 [facility] Comment on above: Order Comment: Order Date: 12/05/23 Order Info: 018- - CBCD Performed By: #### L 501.9520, L500.4050, L500.4100, L501.5200, L100.0100, L501.9985 #### [facility] [address] [place], [address] Nucleated RBC (Bld) [#/Vol] 0 10*3/uL Normal 0-5 [facility] Comment on above: Order Comment: Order Date: 12/05/23 Order Info: 018- - CBCD Performed By: #### L 501.9520, L500.4050, L500.4100, L501.5200, L100.0100, L501.9985 #### [facility] [address] [place], [address] Platelet mean volume (Bld) [Entitic vol] 8.8 fL Normal 6.2-12.0 [facility] Comment on above: Order Comment: Order Date: 12/05/23 Order Info: 0184- - CBCD Performed By: #### L 501.9520, L500.4050, L500.4100, L501.5200, L100.0100, L501.9985 #### [facility] [address] [place], [address] Platelets (Bld) [#/Vol] 206 10*3/uL Normal 150-450 [facility] Comment on above: Order Comment: Order Date: 12/05/23 Order Info: 018- - CBCD Performed By: #### L 501.9520, L500.4050, L500.4100, L501.5200, L100.0100, L501.9985 #### [facility] [address] [place], [address] RBC (Bld) [#/Vol] 4.29 10*6/uL Low 4.6-6.2 [facility] Comment on above: Order Comment: Order Date: 12/05/23 Order Info: 0184- - CBCD Performed By: #### L 501.9520, L500.4050, L500.4100, L501.5200, L100.0100, L501.9985 #### [facility] [address] [place], [address] RDW SD 46.9 fl High 35.1-43.9 [facility] Comment on above: Order Comment: Order Date: 12/05/23 Order Info: 018- - CBCD Performed By: #### L 501.9520, L500.4050, L500.4100, L501.5200, L100.0100, L501.9985 #### [facility] [address] [place], [address] WBC (Bld) [#/Vol] 7.0 10*3/uL Normal 4.4-11.0 [facility] Comment on above: Order Comment: Order Date: 12/05/23 Order Info: 018- - CBCD Performed By: #### L 501.9520, L500.4050, L500.4100, L501.5200, L100.0100, L501.9985 #### [facility] [address] [place], [address] Comprehensive Metabolic Prof ilon 12-05-2023 Albumin [Mass/Vol] 2.9 g/dL Low 3.2-5.0 [facility] Comment on above: Order Comment: Order Date: 12/05/23 Order Info: 01805-14 - CBCD Performed By: #### L 501.9520, L500.4050, L500.4100, L501.5200, L100.0100, L501.9985 #### [facility] [address] [place], [address] Albumin/Globulin [Mass ratio] 0.8 {ratio} Low 0.9-2.4 [facility] Comment on above: Order Comment: Order Date: 12/05/23 Order Info: 018- - CBCD Performed By: #### L 501.9520, L500.4050, L500.4100, L501.5200, L100.0100, L501.9985 #### [facility] [address] [place], [address] ALK P 128 U/L High 45-117 [facility] Comment on above: Order Comment: Order Date: 12/05/23 Order Info: 018- - CBCD Performed By: #### L 501.9520, L500.4050, L500.4100, L501.5200, L100.0100, L501.9985 #### [facility] [address] [place], [address] ALT [Catalytic activity/Vol] 38 U/L Normal 16-61 [facility] Comment on above: Order Comment: Order Date: 12/05/23 Order Info: 0184-1 - CBCD Performed By: #### L 501.9520, L500.4050, L500.4100, L501.5200, L100.0100, L501.9985 #### [facility] [address] [place], [address] AST [Catalytic activity/Vol] 33 U/L Normal 15-37 [facility] Comment on above: Order Comment: Order Date: 12/05/23 Order Info: 0184-1 - CBCD Performed By: #### L 501.9520, L500.4050, L500.4100, L501.5200, L100.0100, L501.9985 #### [facility] [address] [place], [address] Bilirubin [Mass/Vol] 0.30 mg/dL Normal 0.20-1.00 [facility] Comment on above: Order Comment: Order Date: 12/05/23 Order Info: 0184-1 - CBCD Result Comment: For patients on eltrombopag therapy, use of Dimension [place] TBIL is not recommended. Performed By: #### L 501.9520, L500.4050, L500.4100, L501.5200, L100.0100, L501.9985 #### [facility] [address] [place], [address] BUN/CRE 18.9 RATIO Normal 10-20 [facility] Comment on above: Order Comment: Order Date: 12/05/23 Order Info: 0184-1 - CBCD Performed By: #### L 501.9520, L500.4050, L500.4100, L501.5200, L100.0100, L501.9985 #### [facility] [address] [place], [address] CA,Total 8.8 mg/dL Normal 8.5-10.1 [facility] Comment on above: Order Comment: Order Date: 12/05/23 Order Info: 0184-1 - CBCD Performed By: #### L 501.9520, L500.4050, L500.4100, L501.5200, L100.0100, L501.9985 #### [facility] [address] [place], [address] Chloride [Moles/Vol] 107 mmol/L Normal 98-107 [facility] Comment on above: Order Comment: Order Date: 12/05/23 Order Info: 0184-1 - CBCD Performed By: #### L 501.9520, L500.4050, L500.4100, L501.5200, L100.0100, L501.9985 #### [facility] [address] [place], [address] CO2 [Moles/Vol] 24.0 mmol/L Normal 21.0-32.0 [facility] Comment on above: Order Comment: Order Date: 12/05/23 Order Info: 0184-1 - CBCD Performed By: #### L 501.9520, L500.4050, L500.4100, L501.5200, L100.0100, L501.9985 #### [facility] [address] [place], [address] Creatinine [Mass/Vol] 2.70 mg/dL High 0.70-1.30 [facility] Comment on above: Order Comment: Order Date: 12/05/23 Order Info: 0184-1 - CBCD Result Comment: The validity of the calculated GFR GFRAA in patients over 70 years has not been determined. Clinical correlation is essential. Performed By: #### L 501.9520, L500.4050, L500.4100, L501.5200, L100.0100, L501.9985 #### [facility] [address] [place], [place], [address] EST GFR - AA 30 mL/min Low >60 [facility] Comment on above: Order Comment: Order Date: 12/05/23 Order Info: 0184- - CBCD Result Comment: Afri can Slovenian GFR Calc Performed By: #### L 501.9520, L500.4050, L500.4100, L501.5200, L100.0100, L501.9985 #### [facility] [address] [place], [place], [address] GAP 7 Normal 5-15 [facility] Comment on above: Order Comment: Order Date: 12/05/23 Order Info: 0184- - CBCD Performed By: #### L 501.9520, L500.4050, L500.4100, L501.5200, L100.0100, L501.9985 #### [facility] [address] [place], [place], [address] GFR/1.73 sq M.predicted among non-blacks MDRD (S/P/Bld) [Vol rate/Area] 25 mL/min/{1.73_m2} Low >60 [facility] Comment on above: Order Comment: Order Date: 12/05/23 Order Info: 0184- - CBCD Result Comment: Non- GFR Calc Performed By: #### L 501.9520, L500.4050, L500.4100, L501.5200, L100.0100, L501.9985 #### [facility] [address] [place], [place], [address] Globulin (S) [Mass/Vol] 3.7 g/dL Normal 2.2-4.2 [facility] Comment on above: Order Comment: Order Date: 12/05/23 Order Info: 0184-1 - CBCD Performed By: #### L 501.9520, L500.4050, L500.4100, L501.5200, L100.0100, L501.9985 #### [facility] [address] [place], [address] Glucose [Mass/Vol] 126 mg/dL High 74-106 [facility] Comment on above: Order Comment: Order Date: 12/05/23 Order Info: 0184-1 - CBCD Result Comment: Fast ing Glucose result greater than or equal to 126 mg/dL suggests DIABETES MELLITUS per A.D.A. criteria. Performed By: #### L 501.9520, L500.4050, L500.4100, L501.5200, L100.0100, L501.9985 #### [facility] [address] [place], [address] Potassium [Moles/Vol] 4.6 mmol/L Normal 3.5-5.1 [facility] Comment on above: Order Comment: Order Date: 12/05/23 Order Info: 0184- - CBCD Performed By: #### L 501.9520, L500.4050, L500.4100, L501.5200, L100.0100, L501.9985 #### [facility] [address] [place], [address] Sodium [Moles/Vol] 138 mmol/L Normal 136-145 [facility] Comment on above: Order Comment: Order Date: 12/05/23 Order Info: 0184-1 - CBCD Performed By: #### L 501.9520, L500.4050, L500.4100, L501.5200, L100.0100, L501.9985 #### [facility] [address] [place], [address] T PROT 6.6 g/dL Normal 6.4-8.2 [facility] Comment on above: Order Comment: Order Date: 12/05/23 Order Info: 0184-1 - CBCD Performed By: #### L 501.9520, L500.4050, L500.4100, L501.5200, L100.0100, L501.9985 #### [facility] [address] [place], [address] Urea nitrogen [Mass/Vol] 51 mg/dL High 7-18 [facility] Comment on above: Order Comment: Order Date: 12/05/23 Order Info: 0184-1 - CBCD Performed By: #### L 501.9520, L500.4050, L500.4100, L501.5200, L100.0100, L501.9985 #### [facility] [address] [place], [address] Hemoglobin A1con 12-05-2023 HbA1c (Bld) [Mass fraction] 6.3 % High 3.8-5.6 [facility] Comment on above: Order Comment: Order Date: 12/05/23 Order Info: 018- - CBCD Result Comment: Norm al < 5.7 % Prediabetic 5.7 - 6.4 % Diabetic >or= 6.5 % Please note range changes. Performed By: #### L 501.9520, L500.4050, L500.4100, L501.5200, L100.0100, L501.9985 #### [facility] [address] [place], [address] Lipid Profileon 12-05-2023 Cholesterol [Mass/Vol] 116 mg/dL Normal 200 [facility] Comment on above: Order Comment: Order Date: 12/05/23 Order Info: 0184- - CBCD Result Comment: <200 mg/dL Desirable 200-240 mg/dL Borderline >240 mg/dL High Risk Performed By: #### L 501.9520, L500.4050, L500.4100, L501.5200, L100.0100, L501.9985 #### [facility] [address] [place], [address] Cholesterol in HDL [Mass/Vol] 44 mg/dL Normal [facility] Comment on above: Order Comment: Order Date: 12/05/23 Order Info: 0184-1 - CBCD Result Comment: The drugs N-Acetylcysteine and Metamizole may falsely depress this assay. Reference Range HDL <40 mg/dL Low HDL Cholesterol HDL >or= 60 mg/dL High HDL Cholesterol Performed By: #### L 501.9520, L500.4050, L500.4100, L501.5200, L100.0100, L501.9985 #### [facility] [address] [place], [address] Cholesterol in LDL [Mass/Vol] 42 mg/dL Normal 0-130 [facility] Comment on above: Order Comment: Order Date: 12/05/23 Order Info: 0184-1 - CBCD Performed By: #### L 501.9520, L500.4050, L500.4100, L501.5200, L100.0100, L501.9985 #### [facility] [address] [place], [address] Cholesterol in VLDL [Mass/Vol] 30 mg/dL Normal 5-40 [facility] Comment on above: Order Comment: Order Date: 12/05/23 Order Info: 0184-1 - CBCD Performed By: #### L 501.9520, L500.4050, L500.4100, L501.5200, L100.0100, L501.9985 #### [facility] [address] [facility] [facility] [place], [address] Triglyceride [Mass/Vol] 150 mg/dL Normal [facility] Comment on above: Order Comment: Order Date: 12/05/23 Order Info: 0184-1 - CBCD Result Comment: The drugs N-Acetylcysteine and Metamizole may falsely depress this assay. Serum Triglycerides Reference Interval Normal <150 mg/dL Borderline high 150 - 199 mg/dL High 200 - 499 mg/dL Very High > or = 500 mg/dL Performed By: #### L 501.9520, L500.4050, L500.4100, L501.5200, L100.0100, L501.9985 #### [facility] [address] [place], [address] Magnesiumon 12-05-2023 Magnesium [Mass/Vol] 2.5 mg/dL Normal 1.6-2.6 [facility] Comment on above: Order Comment: Order Date: 12/05/23 Order Info: 0184-1 - CBCD Performed By: #### L 501.9520, L500.4050, L500.4100, L501.5200, L100.0100, L501.9985 #### [facility] [address] [place], [address] PTHINon 12-05-2023 PTH 117.0 pg/mL High 18.4-80.1 [facility] Comment on above: Order Comment: Order Date: 12/05/23 Order Info: 0184-1 - CBCD Performed By: #### L 501.9520, L500.4050, L500.4100, L501.5200, L100.0100, L501.9985 #### [facility] [address] [place], [address] Protein+Creatinine Ratio,Uri neon 12-05-2023 PROT:CRE RATIO 3825 mg/g CRE High 0-200 [facility] Comment on above: Performed By: #### L 400.0001, L501.0900 #### [facility] [address] [place], [address] Protein (U) [Mass/Vol] 181.7 mg/dL High <11.9 [facility] Comment on above: Performed By: #### L 400.0001, L501.0900 #### [facility] [address] [place], [address] UR CREAT 47.50 mg/dL Normal NO RANGE EST. [facility] Comment on above: Performed By: #### L 400.0001, L501.0900 #### [facility] [address] [place], [address] Thyroid Stim Hormone (TSH)on 12-05-2023 TSH 0.285 uIU/mL Low 0.358-3.74 0 [facility] Comment on above: Order Comment: Order Date: 12/05/23 Order Info: 0184-1 - CBCD Performed By: #### L 501.9520, L500.4050, L500.4100, L501.5200, L100.0100, L501.9985 #### [facility] [address] [place], [address] Urinalysis, Completeon 12-04 RBC 0-5 SEEN Normal 0-5 [facility] Comment on above: Order Comment: Urine , Random Performed By: #### L 400.0001, L501.0900 #### [facility] [address] [place], [address] BACTERIA 0 SEEN Normal None Seen [facility] Comment on above: Order Comment: Urine , Random Performed By: #### L 400.0001, L501.0900 #### [facility] [address] [place], [address] EPI,SQUAMOUS 0 SEEN Normal 0-5 [facility] Comment on above: Order Comment: Urine , Random Performed By: #### L 400.0001, L501.0900 #### [facility] [address] [place], [address] Mucus Ql (Urine sed) 0 SEEN Normal [facility] Comment on above: Order Comment: Urine , Random Performed By: #### L 400.0001, L501.0900 #### [facility] [address] [place], [address] WBC 0 SEEN Normal 0-5 [facility] Comment on above: Order Comment: Urine , Random Performed By: #### L 400.0001, L501.0900 #### [facility] [address] [place], [address] Vitamin D,25 Hydroxyon 12-04 Vitamin D 25-OH 22.6 ng/mL Normal [facility] Comment on above: Order Comment: Order Date: 12/05/23 Order Info: 0184-1 - CBCD Result Comment: Marlee min D 25(OH) Status Range Deficiency <20 ng/mL (50nmol/L) Insufficiency 20 - 30 ng/mL (50 - 75 nmol/L) Sufficiency 30 - 100 ng/mL (75 - 250 nmol/L) Toxicity >100 ng/mL (>250 nmol/L) Performed By: #### L 501.9520, L500.4050, L500.4100, L501.5200, L100.0100, L501.9985 #### [facility] [address] [place], [place], [address] CNOVon 11-08-2023 CNOV Office Visit (ENWSTR ) -- GAMALIEL GRIFFIN ([id number]) 1955 M Date Time Provider Department 11/08/23 9:45 AM MONICA HOYT ENWSTR During your visit today, we recorded the following information about you: Pulse Respiration Weight Height 57/minute 20/minute 80.4 kg 1.753 m Monica Hoyt, 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 11/08/2023 10:01 AM Signed OFFICE VISIT PROGRESS NOTE CC Gamaliel Griffin is a 67 year old who presents today for blood sugar review, insulin review, adjust. HPI Diagnosed with diabetes mellitus type 2, ~ 2009 Last endocrine OV 05/10/2023 Some elements copied from my note 05/10/2023 which have been updated where appropriate, and all reflect current medical decision making from date of this visit. HISTORY OF PRESENT ILLNESS; Gamaliel Griffin is a 67 year old MALE is presenting as a new patient to me regarding DM Type 2. He was initially diagnosed with diabetes in ~12-15 years. Sts since having his CGM since () 'changed my life' Modified his diet Lost 50 pounds 6 years ago, started exercising CABG x - Jan 2023 Goes to the gym regularly Went through 3 cardiac rehab, felt that they were 'holding him back' 3 days per week, 3 miles Does report he is only limited by his feet / lower ext pain Sts PCP last checked his A1C in February 6.7% He does have a family history of diabetes mellitus in his Mother. Sister The patient reports the following microvascular complications: nephropathy Gamaliel has no know macrovascular complications of diabetes.. (recent CABG, pt not related) DM Education No Knows how to carb count Yes - saw DM nurse at [facility] 40 grams per meal - DIETARY HISTORY: Breakfast: cereal OR toast or bagel with water or tea and carnation breakfast daily with fruit (apple, oranges, grapes) Lunch fruit (apple or orange) and sandwich deli Dinner cooks, balanced protein/starch/vegetable OR soup rarely eat out or take out Snacks not really, rarely, if does may have saltine crackers OR pretzels Drinks water, tea Exercise: [employer] total gym program (3-4 times per week) HPI 11/08/2023 Has nephro, sees at least q 6 mos. Drinks a lot of water Pt manipulates own insulin dosing and recently reduced doses Sts bottoms at night CURRENT DM MEDS pt manipulates own insulin dosing FARXIGA 10 mg 1 tab daily LANTUS 10 NOVOLOG 7-7-7 plus THYROID SYNTHROID 175 mcg 1 tab daily (managed by PCP) SMBG Type of Monitor: Other Frequency of Monitoring: FREESTYLE YAZMIN CGM times a day Pt NOT SHARED WITH OFFICE Hypoglycemia: no Diet: Low carbohydrate Exercise: as per above DM REVIEW OF SYSTEMS Last Eye Exam : 2022 will see retina specialist soon (reports eye have worsened since CABG) Last Podiatry Exam: Cardiorespiratory: negative, denies chest pain, pressure Claudication: no Dyslipidemia: Yes, controlled on medication High Blood Pressure: Yes, controlled on medication CURRENT LABS Latest Ref Rng 05/10/2023 10/17/2023 Glucose 74 - 99 mg/dL 187 (H) BUN 9 - 24 mg/dL 48 (H) Creatinine 0.73 - 1.22 mg/dL 2.60 (H) Sodium 136 - 144 mmol/L 135 (L) Potassium 3.7 - 5.1 mmol/L 4.4 Chloride 98 - 107 mmol/L 101 CO2 22 - 30 mmol/L 22 Anion Gap 8 - 15 mmol/L 12 eGFR >=60 mL/min/1.73m? 26 (L) Total Cholesterol, Nonfasting <200 mg/dL 138 Triglycerides, Nonfasting <150 mg/dL 215 (H) HDL Cholesterol, Nonfasting >39 mg/dL 40 LDL Cholesterol, Nonfasting <100 mg/dL 55 Non HDL Cholesterol, Nonfasting <130 mg/dL 98 VLDL Cholesterol, Nonfasting <30 mg/dL 43 (H) Total Chol/HDL Ratio, Nonfasting <5.10 mg/dL 3.45 LDL/HDL Ratio, Nonfasting <2.54 mg/dL 1.38 Case Report FINAL DIAGNOSIS Gross description Performing Lab Creatinine, Ur Random (UCRR) 20.0 - 300.0 mg/dL 32.1 Albumin, Urine Random mg/L 536.5 Albumin/Creat Ratio <30 mg/g 1,671 (H) Hemoglobin A1C 4.3 - 5.6 % 6.8 (H) 6.8 (H) Estimated Average Glucose mg/dL 148 148 Legend: (H) High (L) Low Recent Labs 01/10/23 1044 01/25/23 0813 01/26/23 1542 01/31/23 0026 02/01/23 0905 02/02/23 0453 05/10/23 1059 10/17/23 1613 10/17/23 1617 ALT 16 12 < > 11 19 -- -- 14 -- AST 19 12* < > 18 33 -- -- 21 -- UCRR -- -- -- -- -- -- -- -- 32.1 UALBR -- -- -- -- -- -- -- -- 536.5 UALBCR -- -- -- -- -- -- -- -- 1,671* TSH -- 2.050 -- -- -- -- -- -- -- TPROT 6.1* 5.5* < > 5.3* 5.9* -- -- 6.4 -- ALB 3.5* 3.5* < > 2.8* 3.4* -- -- 3.5* -- CA 8.7 8.4* < > 8.3* 8.2* 8.1* -- 8.9 -- TBILI 0.2 0.2 < > 0.4 0.6 -- -- 0.2 -- ALKPHOS 104 127* < > 58 67 -- -- 116* -- GLUC 296* 373* < > 125* 209* 197* -- 187* -- BUN 43* 50* < > 51* 47* 49* -- 48* -- CREAT 2.68* 2.60* < > 2.47* 2.36* 2.59* -- 2.60* -- NA 137 135* < > 137 136 134* -- 135* -- K 4.7 4.8 < > 3.8 3.9 4.6 -- 4.4 -- CHLOR 99 100 < > 101 100 102 -- 101 -- CO2 26 24 < > 23 26 21* -- 22 -- ANION 12 11 < > 13 10 11 -- 12 -- EGFROTH 25* 26* < > 28* 29* 26* -- 26* (more content not included)... Normal [facility] SURGICAL PATHOLOGYOrdered By : Ishmael Patel on 10-25-2023 Case Report Surgical Pathology R eport Case: [id number] Authorizing Provider: Carolee Mack MD Collected: 10/24/2023 07:58 AM Ordering Location: Ambulatory Surgery Received: 10/24/2023 01:23 PM Pathologist: Ishmael Patel MD Specimen: Colon, Transverse, Pol[facility] Work Phone: FINAL DIAGNOSIS q3whlADtUSXtxCYsVTmp Mlxhbn YlIWZsnCCbI3MtxgzmLPaqKV4j KJ2vmJddfVNplVTbYKYzUbXwu6 zje928xXBgg4evEFIYlnddrEp4 wGylS90wg3H0ZfrgZ66ubLMsAL E5QWOwZMUxzEIeLVGxOYK6PPWn yARiS3zsOEDzJG9dtlgmHZzqXY xiOZRfbJZ5IOPgaSRtK9VlJWAu OFsfLTSgwjq6CsZhFg3akDZwkV cyMFxwYXJkXHBsYWluXGZzMjAg YFSxgmA0WWXqDQLvl2bxzjIcl0 e3qMvmMdaevFE1YgbotK2wBW2n XGKcbUsknjVfGTXuw41vKesvJF DthSNlKCpYQXH3LlXzDsHqCjXw cGFyfQ== [facility] Work Phone: Gross Description y6fltXDaGFYsaRMGTFQ6 MDFcYW 8llTxkfUz6bDtqDFNfryH9bQEs MZbcc0ojFHF1n5lpzxUCPhylYQ AvWW6bPUauHSWiKZ4rAvXvHTXu ZmYxXHBhcGVydzEyMjQwXHBhcG MigCZ4BKCeJT0uzxkeXPytUFvf UJUxcwQ2RZEwdGEaA0BaAVOjVU 0ckgvlFIG0BFPEDuheAe5swMLh bHtcZjFcZmNoYXJzZXQwXGZzd2 ssmoNYcwqfiWi6hW3ECKCrB9Gr UB7Uk1wmASBkoUMjUAK2MTjvx4 snGWuyBWD5VADdOTKeNHErNR6K WgWuYFdsKrC6Adj9SwG0EXk8AF ZNSVTeXUK2CyV8GWQlEAe5YQgt XFxuaCBcXHQgMSBcXGZsIFxcbm H9b1pcRRJnhWAuFEI9PZyza3ew RSkfHKZ3JMMmHeTuKBFhMR4JPd DeAMmeOzX7Ggd3HmD4BDu7URGW HpCoQuRsXDuuQEriYMMvCHg0WJ n0LHiZCzKgAnqaCxVmOuu8IyO5 NDQzOCBcXHQgMiBcXHNzIDMgXF fevKVpFF3asMzsLWBeAO9GSKJs KPicQREgUpKoGJ4sT20li99gTV BrXK8fnoYgg7UlQMBdkGwcMWz7 tmGkCTHkfbXVPlqiIJJjZD9IMZ GcIZrvLEk9ypJtWSImKuOuHNWb D55uu5AAw1JsBU3REId1gzGouj LHEtmfynZsCZJiM8XxuaBjHCxz KPTfwd8fxOqtWGBvUZOfoVp3yD SwSCInxBPyPIMhm5LnuQCkWPBp h6O0YQGmu0C4MKSuN5kqQJlqdO haZlV3tfObGyBecQPaZlWnfAKs HvWeQ04gYJHzvAYglHazb9ByfD z5oCSoBEoaLL7vGFEoWKTaDYF4 UL5bCDYfigGUHautQOJpWPxWhk 1sibPvgUUmfP7lrQafyaTqJZGh b6FaBZJkNCCsF3dcotKkCD3mYH IkqG6mKdqtBFNiLMFNdHSeySAb XHQlOyhuN8jupkMuKE5fHLXDNN O7SFL5AUwnGRJdGXbkdGWkYU9X QSYkMbIbTLRgF3lsIWSuKO6ZGk DWWHQ5TcAmTpHrWbYbNZC5GWgo SJ2NXsnacLbkLePsqLYpKfO8UY MnuRMpODT9XA3nhAejDLFjB6Kj Y8PfwqA5RAZhdjWQDmqfUMPfGQ 0VBBUvVjSfMIo3 [facility] Work Phone: Performing Lab f2hyoRUoYMRspTXaJyQb MDAwXG Mhi8vnIFRxdQCgCxAcPaDmXlDn WtemkWVcLTLwVcFuk9osg520zP Tnl9owDVJoApT2nAJqROIjgMXx A043ZAUrHPujp6pvv0MrZPAkcI Hkl5K4BDAEkiuscNi0uJptU70s z4U5FcrfI4zdXVOpZXZcQ3QjGI 9cYCDgJpp5YVY9RZZ7FYUaUHPc B4DqJS8uCEKtbQNqVRv0e2ikuY jmVXUiOAJ3g4bqTQukqiSoDY1r pq8rnGt5f5nfayTuWTYcDSHgwU YDUNSdN4QnaMfzBb7avZg5rRer BwunJKS9Cka4CH3plf23kun2uY vcEYMkprsuTeB6SVgkOQWpmurf XGq8VIayPFNwcMT1ADNpxUZaX4 LjBZBgKE9loic1RJK4LYgfONLn KpC0RMTgkWXdKFJlqZexCDare2 81UKN0HjLfOP4dD4Ajt4L2qA3l uHSnHFBjeHTpBhLbOGPame5rrE IfKPveu2JiRMX0nbO9dBMwuYBj ZLZbMC82Hlwxr7ImPtotr0DjD7 4lfUQ2IGoji6zaYW5gYyS6rtFv OIqee0oaiY1dKbM0PBlyRE7eQF 3fRPCaxV2pqvxcELGrWpUlipbv NMOzcNxlrtMzVd7ypIbjVVT3NI qtP6zusR5yHgK2ENolT2sdnR2g AGi9JEesxAP5EDZohZ3xVO2emp pdt5sxYUhySIgsEISonsH2szY4 QWVbyOZeU3KgjE3uTQMbRU4kaq zoi9lrUBO7KEmzEZLwPSE9TjBb UIWgw4Cfibx8ArUfs8JgsFHzTB qyN34vt758IXHpsoRhN5vzrPDh txxboGBhktjdPHbiqqE4MEHbOD BsYWluXGYxXGZzMjJcbGFuZzEw MzNcaGljaFxmMVxkYmNoXGYxXG smY6pmAhUgMhZpYxDUyJSmpt1z oFqyENkjzOWcdTAmjCW7qO8rLQ NjrlNqce9mAUTqhVUJqGY9SEwd lpMcY4okofmnMXWqbVG8jHH5MW div3NoqNHlCULgDKCrUFFIh6Yr fQ1sLHJlIDRGvRM9QAnzrhRyRB 4ESUH6VURcQVQzWMFAUSCvYFV3 IHV9PBn5MCmbsIBeHIOfvxowGC JkXHBsYWluXGYwXGZzMjRccGxh vT9iBrOqMhXmQwdqEU6rDTRpE9 bflCBnFVUwWBWfZ5eqAzXzpA2g aFxmMVxjZjJcZnMyMlxsdHJjaC PZNFNjogH2h8G4AMukyPMgbpco MVxmczIyXGxhbmcxMDMzXGhpY2 hxCjCyXGBquXxyAAtkt0KkCIXa LWIfTpZoXKfkAXY1c8G1UI7fug caLj9xPAUzEJAiL26wBKSPKuOl XHBhcn0= [facility] Work Phone: [facility] Work Phone: [phone] 10-24-2023 [id number] HNO ID: [id number] Author: KARISSA ARANA RN Service: ? Author Type: Registered Nurse Type: [id number] Filed: 10/24/2023 08:21 Note Text: The patient received a copy of Colonoscopy discharge instructions that contain information for how to contact the physician who performed the procedure and when to seek medical care. Normal [facility] Colonoscopyon 10-24-2023 [facility] Patient Name: Gamaliel Griffin Procedure Date: 10/24/2023 7:25 AM Date of : 1955 Admit Type: Outpatient Age: 67 Gender: Male Note Status: Finalized Procedure: Colonoscopy Indications: Screening for colorectal malignant neoplasm Providers: Carolee Mack MD Patient Profile: Refer to note in patient chart for documentation of history and physical. Last Colonoscopy: 2020. Referring Physician: Jennifer Smith MD (Referring MD), Piedad Han (Referring ) Medicines: Midazolam 3 mg IV, Fentanyl 50 micrograms IV, Diphenhydramine 50 mg IV Complications: No immediate complications. Requesting Provider: Procedure: Pre-Anesthesia Assessment: - Prior to the procedure, a History and Physical was performed, and patient medications and allergies were reviewed. The patient is competent. The risks and benefits of the procedure and the sedation options and risks were discussed with the patient. All questions were answered and informed consent was obtained. Patient identification and proposed procedure were verified by the physician. Mental Status Examination: alert and oriented. Airway Examination: normal oropharyngeal airway and neck mobility. Respiratory Examination: clear to auscultation. CV Examination: normal. Prophylactic Antibiotics: The patient does not require prophylactic antibiotics. Prior Anticoagulants: The patient has taken no anticoagulant or antiplatelet agents. ASA Grade Assessment: II - A patient with mild systemic disease. After reviewing the risks and benefits, the patient was deemed in satisfactory condition to undergo the procedure. The anesthesia plan was to use moderate sedation / analgesia (conscious sedation). Immediately prior to administration of medications, the patient was re-assessed for adequacy to receive sedatives. The heart rate, respiratory rate, oxygen saturations, blood pressure, adequacy of pulmonary ventilation, and response to care were monitored throughout the procedure. The physical status of the patient was re-assessed after the procedure. After I obtained informed consent, the scope was passed under direct vision. Throughout the procedure, the patient's blood pressure, pulse, and oxygen saturations were monitored continuously. The Colonoscope was introduced through the anus and advanced to the cecum, identified by the appendiceal orifice, IC valve and transillumination. The colonoscopy was performed without difficulty. The patient tolerated the procedure well. The quality of the bowel preparation was adequate to identify polyps greater than 5 mm in size. The appendiceal orifice and the rectum were photographed. Moderate Sedation: The administration of moderate sedation was initiated at 07:35 AM. Moderate (conscious) sedation was personally administered by the endoscopist. The following parameters were monitored: oxygen saturation, heart rate, blood pressure, respiratory rate, EKG, adequacy of pulmonary ventilation, and response to care. Total physician intraservice time was 31 minutes. Findings: The perianal and digital rectal examinations were normal. Multiple small-mouthed diverticula were found in the sigmoid colon. Non-bleeding internal hemorrhoids were found. A 9 to 12 mm polyp was found in the distal transverse colon. The polyp was sessile. The polyp was removed with a hot snare. Resection and retrieval were complete. Verification of patient identification for the specimen was done by the nurse. Estimated blood loss was minimal. Impression: - Diverticulosis in the sigmoid colon. - Non-bleeding internal hemorrhoids. - One 9 to 12 mm polyp in the distal transverse colon, removed with a hot snare. Resected and retrieved. Recommendation: - Repeat colonoscopy date to be determined after pending pathology results are reviewed for surveillance based on pathology results. - - Follow up with Latricia Mendez NP, may be via televisit for discussion of pathology results and determination of timing of future endoscopies - Patient has a contact number available for emergencies. The signs and symptoms of potential delayed complications were discussed with the patient. Return to normal activities tomorrow. Written discharge instructions were provided to the patient. - Continue present medications. - Resume previous diet. Procedure Code(s): --- Professional --- 76995, Colonoscopy, flexible; with removal of tumor(s), polyp(s), or other lesion(s) by snare technique 74690, 59, Moderate sedation services provided by the same physician or other qualified health foster care case manager performing the diagnostic or therapeutic service that the sedation supports, requiring the presence of an independent trained observer to assist in the monitoring of the patient's level of consciousness and physiological status; initial 15 (more content not included)... Normal [facility] Colonoscopy Study observatio non 10-24-2023 [facility] Gastrointestinal Endoscopy Patient Name: Gamaliel Griffin Procedure Date: 10/24/2023 7:25 AM Date of : 1955 Admit Type: Outpatient Age: 67 Gender: Male Note Status: Finalized Procedure: Colonoscopy Indications: Screening for colorectal malignant neoplasm Providers: Carolee Mack MD Patient Profile: Refer to note in patient chart for documentation of history and physical. Last Colonoscopy: 2020. Referring Physician: Jennifer Smith MD (Referring MD), Piedad Han (Referring ) Medicines: Midazolam 3 mg IV, Fentanyl 50 micrograms IV, Diphenhydramine 50 mg IV Complications: No immediate complications. Requesting Provider: Procedure: Pre-Anesthesia Assessment: - Prior to the procedure, a History and Physical was performed, and patient medications and allergies were reviewed. The patient is competent. The risks and benefits of the procedure and the sedation options and risks were discussed with the patient. All questions were answered and informed consent was obtained. Patient identification and proposed procedure were verified by the physician. Mental Status Examination: alert and oriented. Airway Examination: normal oropharyngeal airway and neck mobility. Respiratory Examination: clear to auscultation. CV Examination: normal. Prophylactic Antibiotics: The patient does not require prophylactic antibiotics. Prior Anticoagulants: The patient has taken no anticoagulant or antiplatelet agents. ASA Grade Assessment: II - A patient with mild systemic disease. After reviewing the risks and benefits, the patient was deemed in satisfactory condition to undergo the procedure. The anesthesia plan was to use moderate sedation / analgesia (conscious sedation). Immediately prior to administration of medications, the patient was re-assessed for adequacy to receive sedatives. The heart rate, respiratory rate, oxygen saturations, blood pressure, adequacy of pulmonary ventilation, and response to care were monitored throughout the procedure. The physical status of the patient was re-assessed after the procedure. After I obtained informed consent, the scope was passed under direct vision. Throughout the procedure, the patient's blood pressure, pulse, and oxygen saturations were monitored continuously. The Colonoscope was introduced through the anus and advanced to the cecum, identified by the appendiceal orifice, IC valve and transillumination. The colonoscopy was performed without difficulty. The patient tolerated the procedure well. The quality of the bowel preparation was adequate to identify polyps greater than 5 mm in size. The appendiceal orifice and the rectum were photographed. Moderate Sedation: The administration of moderate sedation was initiated at 07:35 AM. Moderate (conscious) sedation was personally administered by the endoscopist. The following parameters were monitored: oxygen saturation, heart rate, blood pressure, respiratory rate, EKG, adequacy of pulmonary ventilation, and response to care. Total physician intraservice time was 31 minutes. Findings: The perianal and digital rectal examinations were normal. Multiple small-mouthed diverticula were found in the sigmoid colon. Non-bleeding internal hemorrhoids were found. A 9 to 12 mm polyp was found in the distal transverse colon. The polyp was sessile. The polyp was removed with a hot snare. Resection and retrieval were complete. Verification of patient identification for the specimen was done by the nurse. Estimated blood loss was minimal. Impression: - Diverticulosis in the sigmoid colon. - Non-bleeding internal hemorrhoids. - One 9 to 12 mm polyp in the distal transverse colon, removed with a hot sna (more content not included)... [facility] Radiology Study observation (narrative) [facility] HISTORY PHYSICALon HISTORY PHYSICAL HNO ID: [id number] Author: CAROLEE MACK MD Service: General Surgery Author Type: Physician Type: H&P Filed: 10/24/2023 07:27 Note Text: HISTORY AND PHYSICAL Gamaliel Griffin 1955 REFERRING PHYSICIAN: Piedad Han MD CHIEF COMPLAINT: Consult (Colonoscopy consultation. ) HPI: The patient is a 67 year old male referred for endoscopy. Gamaliel notes no history of colon complaints. The patient notes no history of upper GI complaints. Gamaliel has undergone prior endoscopy. The patient had attempted colonoscopy in 2020. He was given a prescription for a atypical preparation and had inadequate preparation. The patient had cardiac bypass surgery in January 2023. He has improved cardiac ejection fraction since that time and is doing well. He exercise and has no shortness of breath or chest pain. He has no family history of colon cancer He was given 5 mg of Versed and 100 mcg of fentanyl at his last attempt The patient is being seen by me today at the request of Dr. Piedad Han MD, MD for my opinion and advice regarding screening colonoscopy. 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 Refer to printed prep instructions from your provider. insulin glargine (LANTUS SOLOSTAR U-100 INSULIN) 100 unit/mL (3 mL) Taking 20 units in the [facility] Blood-Glucose Sensor (FREESTYLE YAZMIN 3 SENSOR) kathleen CHANGE sensor every 14 days. USE FOR CONTINUOUS GLUCOSE MONITORING. MULTIPLE INSULIN INJECTIONS. E11.9 metoprolol succinate ER (TOPROL XL) 50 mg 24 hr tablet Take 1 tablet by mouth two times a day. dapagliflozin propanediol (FARXIGA) 10 mg tablet Take 1 tablet by mouth daily with breakfast. isosorbide dinitrate (ISORDIL) 20 mg tablet Take 0.5 tablets by mouth three times a day. acetaminophen (TYLENOL) 325 mg tablet Take 2 tablets by mouth every 4 hours as needed (mild to moderate pain). senna-docusate (SENNA-S) 8.6-50 mg per tablet Take 1 tablet by mouth two times a day. Continue while on narcotic pain meds AND/or as needed thereafter for mild post-op constipation AND stool softening. insulin aspart U-100 (NOVOLOG FLEXPEN U-100 INSULIN) 100 unit/mL (3 mL) Inject 9 units with meals. Based on pre-meal blood sugar use following scale to add additional units as needed: 151-200 = 2 units. 201-250 = 4 units. 251-300 = 6 units. 301-350 = 8 units. 351- 400 = 10 units. Insulin Union, Disposable, (BD ULTRA-FINE KENN PEN NEEDLE) 32 gauge x 5/32 Use to inject insulin 4 times a day blood sugar diagnostic (TRUE METRIX GLUCOSE TEST STRIP) test strip Use as instructed to check blood sugar 4 times a day Lancets lancets Use as directed to check blood sugars 4 times a day hydrALAZINE (APRESOLINE) 25 mg tablet 25 mg three times a day. levothyroxine (SYNTHROID) 175 mcg tablet 175 mcg once daily. OTC PRODUCT Stool softner daily rosuvastatin (CRESTOR) 20 mg tablet Take 20 mg by mouth once daily. amLODIPine (NORVASC) 10 mg tablet Take 5 mg by mouth once daily. aspirin, enteric coated (ASPIRIN, ENTERIC COATED) 81 mg EC tablet Take 81 mg by mouth once daily. allopurinol (ZYLOPRIM) 300 mg tablet Take 300 mg by mouth once daily. buPROPion SR (ZYBAN SR; WELLBUTRIN SR) 150 mg 12 hr tablet Take 150 mg by mouth twice daily. No current facility-administered medications for this visit. ALLERGIES: Lisinopril PERSONAL HISTORY: SOCIAL HISTORY Social History Tobacco Use Smoking status: Never Smokeless tobacco: Never Substance Use Topics Alcohol use: Never Drug use: Never FAMILY HISTORY: FAMILY HISTORY FAMILY HISTORY Problem Relation Age of Onset other (passed at age 82) Mother Intersitial Lung Disease Mother Heart Attack Father other (passed at age 53) Father Cancer Paternal Grandfather Diabetes Sister other (valve disease) Sister other (atrial fib) Sister REVIEW OF SYMPTOMS: The review of systems data was entered by the nurse and reviewed by me There are no exam notes on file for this visit. PHYSICAL EXAMINATION: General: The patient is 67 year old male, well nourished, well hydrated in no acute distress. The patient is oriented to time, place, and person. VITALS: Blood pressure 130/64, pulse 63, temperatur (more content not included)... Normal [facility] NURSING PROGon 10-24-2023 NURSING PROG HNO ID: [id number] Author: KARISSA ARANA RN Service: ? Author Type: Registered Nurse Type: Nursing Progress Note Filed: 10/24/2023 08:56 Note Text: Patient has Libre3 glucose monitoring device, Dr Mack aware and says it is acceptable to have post procedure glucose checked with his device. Glucose is 123 at this time. Normal [facility] NURSING PROG HNO ID: [id number] Author: KARISSA ARANA RN Service: ? Author Type: Registered Nurse Type: Nursing Progress Note Filed: 10/24/2023 08:21 Note Text: Patient received in phase II via cart in left lateral position, eyes closed but open to verbal stimuli, skin warm and dry, respirations regular and unlabored, abdomen soft and non distended. Denies pain, nausea, or cramping. Resting comfortably on left side. Normal [facility] SURGICAL PATHOLOGYon 024 CASE REPORT Normal [facility] Comment on above: Order Comment: Speci men Type: BLOOD SPECIMEN Ordering Facility: [facility] Address: [address] [place] [address] Result Comment: Surg ica Pathology Report Case: [id number] Authorizing Provider: Carolee Mack MD Collected: 10/24/2023 07:58 AM Ordering Location: Ambulatory Surgery Received: 10/24/2023 01:23 PM Pathologist: Ishmael Patel MD Specimen: Colon, Transverse, Polyp Performed By: #### L IPNF #### [facility] CLIA [id number] [address] [place] [address] [place] FINAL DIAGNOSIS Normal [facility] Comment on above: Order Comment: Speci men Type: BLOOD SPECIMEN Ordering Facility: [facility] Address: [address] [place] [address] Result Comment: Gutierrez basil colon polyp, biopsy: - Tubular adenoma. JEL 10/25/2023 Performed By: #### L IPNF #### [facility] CLIA [id number] [address] [place] [address] [place] FINAL PERFORMING LAB Normal [facility] Comment on above: Order Comment: Speci men Type: BLOOD SPECIMEN Ordering Facility: [facility] Address: [address] [place] [address] Result Comment: Diag nostic interpretation performed at [facility], [address] [place] [address] CLIA# [id number] [employer] Back Feeder: Isaiah Calderon M.D. Performed By: #### L IPNF #### [facility] CLIA [id number] [address] [place], [place] [id number] [place] GROSS DESCRIPTION Normal [facility] Comment on above: Order Comment: Speci men Type: BLOOD SPECIMEN Ordering Facility: [facility] Address: [address] [place] [address] Result Comment: Sherin waller, Transverse, Polyp Received in formalin are multiple pieces of dasilva, soft tissue aggregating to 1.3 x 0.3 x 0.2 cm. Totally submitted in one cassette. Gross examination performed at [facility], [address] [place] [address] FFS 10/24/2023 11:09 PM Performed By: #### L IPNF #### [facility] CLIA [id number] [address] [place] [address] [place] ALBUMIN/CREATININE RATIO, UR INEon 10-17-2023 Albumin DL <= 20 mg/L (U) [Mass/Vol] 536.5 mg/L Normal [facility] Comment on above: Order Comment: Speci sanjay Type: BLOOD SPECIMEN Ordering Facility: [facility] Address: [address] [place] [address] Performed By: #### L IPNF #### [facility] CLIA [id number] [address] [place] [address] [place] Albumin/Creatinine (U) [Mass ratio] 1671 mg/g High <30 [facility] Comment on above: Order Comment: Speci men Type: BLOOD SPECIMEN Ordering Facility: [facility] Address: [address] [place] [address] Result Comment: Not calculated Adult Male and Female Nephrotic Criteria: <30 mg/g is considered normal to mildly increased 30-300 mg/g is considered moderately increased >300 mg/g is considered severely increased KDIGO. (2013). KDIGO 2012 Clinical Practice Guideline for the Evaluation and Management of Chronic Kidney Disease. Official Journal of the International Society of Nephrology, 3(1), 1-150. Performed By: #### L IPNF #### [facility] CLIA [id number] [address] [place] [address] [place] Creatinine (U) [Mass/Vol] 32.1 mg/dL Normal 20.0-300.0 [facility] Comment on above: Order Comment: Speci men Type: BLOOD SPECIMEN Ordering Facility: [facility] Address: [address] [place], [place] [id number] Performed By: #### L IPNF #### [facility] CLIA [id number] [address] [place], [place] [id number] [place] [facility] Comprehensive metabolic 2000 panelon 10-17-2023 Albumin [Mass/Vol] 3.5 g/dL Low 3.9-4.9 [facility] Comment on above: Order Comment: Speci men Type: BLOOD SPECIMEN Ordering Facility: [facility] Address: [address] [place] [address] Performed By: #### L IPNF #### [facility] CLIA [id number] [address] [place] [address] [place] ALP [Catalytic activity/Vol] 116 U/L High 38-113 [facility] Comment on above: Order Comment: Speci men Type: BLOOD SPECIMEN Ordering Facility: [facility] Address: [address] [place] [address] Performed By: #### L IPNF #### [facility] CLIA [id number] [address] [place] [address] [place] ALT [Catalytic activity/Vol] 14 U/L Normal 10-54 [facility] Comment on above: Order Comment: Speci men Type: BLOOD SPECIMEN Ordering Facility: [facility] Address: [address] [place] [address] Performed By: #### L IPNF #### [facility] CLIA [id number] [address] [place], [place] [id number] [place] Anion gap [Moles/Vol] 12 mmol/L Normal 8-15 [facility] Comment on above: Order Comment: Speci men Type: BLOOD SPECIMEN Ordering Facility: [facility] Address: [address] [place], [place] [id number] Performed By: #### L IPNF #### [facility] CLIA [id number] [address] [place], [place] [id number] [place] AST [Catalytic activity/Vol] 21 U/L Normal 14-40 [facility] Comment on above: Order Comment: Speci men Type: BLOOD SPECIMEN Ordering Facility: [facility] Address: [address] [place], [place] [address] Performed By: #### L IPNF #### [facility] CLIA [id number] [address] [place] [address] [place] Bilirubin [Mass/Vol] 0.2 mg/dL Normal 0.2-1.3 [facility] Comment on above: Order Comment: Speci men Type: BLOOD SPECIMEN Ordering Facility: [facility] Address: [address] [place] [address] Performed By: #### L IPNF #### [facility] CLIA [id number] [address] [place] [address] [place] Calcium [Mass/Vol] 8.9 mg/dL Normal 8.5-10.2 [facility] Comment on above: Order Comment: Speci men Type: BLOOD SPECIMEN Ordering Facility: [facility] Address: [address] [place], [place] [address] Performed By: #### L IPNF #### [facility] CLIA [id number] [address] [place], [place] [id number] [place] Chloride [Moles/Vol] 101 mmol/L Normal 98-107 [facility] Comment on above: Order Comment: Speci men Type: BLOOD SPECIMEN Ordering Facility: [facility] Address: [address] [place] [address] Performed By: #### L IPNF #### [facility] CLIA [id number] [address] [place], [place] [id number] [place] CO2 [Moles/Vol] 22 mmol/L Normal 22-30 [facility] Comment on above: Order Comment: Speci men Type: BLOOD SPECIMEN Ordering Facility: [facility] Address: [address] [place] [address] Performed By: #### L IPNF #### [facility] CLIA [id number] [address] [place] [address] [place] Creatinine [Mass/Vol] 2.60 mg/dL High 0.73-1.22 [facility] Comment on above: Order Comment: Nasir men Type: BLOOD SPECIMEN Ordering Facility: [facility] Address: [address] [place] [address] Performed By: #### L IPNF #### [facility] CLIA [id number] [address] [place] [address] [place] Creatinine and Glomerular filtration rate.predicted panel (S/P/Bld) 26 mL/min/1.73m??? Low >=60 [facility] Comment on above: Order Comment: Nasir grace Type: BLOOD SPECIMEN Ordering Facility: [facility] Address: [address] [place] [address] Result Comment: Soraya mated Glomerular Filtration Rate (eGFR) is calculated using the 2020 CKD-EPI creatinine equation. This equation utilizes serum creatinine, sex, and age as parameters. The creatinine assay has traceable calibration to isotope dilution-mass spectrometry. Refer to KDIGO guidelines for clinical interpretation. In patients with unstable renal function, e.g. those with acute kidney injury, the eGFR may not accurately reflect actual GFR. Performed By: #### L IPNF #### [facility] CLIA [id number] [address] [place] [address] [place] Glucose [Mass/Vol] 187 mg/dL High 74-99 [facility] Comment on above: Order Comment: Nasir grace Type: BLOOD SPECIMEN Ordering Facility: [facility] Address: [address] [place] [address] Result Comment: The [place] Diabetes Association (ADA) provides guidance for cutoff values for fasting glucose and random glucose. The ADA defines fasting as no caloric intake for at least 8 hours. Fasting plasma glucose results between 100 to 125 mg/dL indicate increased risk for diabetes (prediabetes). Fasting plasma glucose results greater than or equal to 126 mg/dL meet the criteria for diagnosis of diabetes. In the absence of unequivocal hyperglycemia, results should be confirmed by repeat testing. In a patient with classic symptoms of hyperglycemia or hyperglycemic crisis, random plasma glucose results greater than or equal to 200 mg/dL meet the criteria for diagnosis of diabetes. Reference: Standards of Medical Care in Diabetes 2016, [place] Diabetes Association. Diabetes Care. 2016.39(Suppl 1). Performed By: #### L IPNF #### [facility] CLIA [id number] [address] [place] [address] [place] Potassium [Moles/Vol] 4.4 mmol/L Normal 3.7-5.1 [facility] Comment on above: Order Comment: Speci men Type: BLOOD SPECIMEN Ordering Facility: [facility] Address: [address] [place] [address] Performed By: #### L IPNF #### [facility] CLIA [id number] [address] [place] [address] [place] Protein [Mass/Vol] 6.4 g/dL Normal 6.3-8.0 [facility] Comment on above: Order Comment: Speci men Type: BLOOD SPECIMEN Ordering Facility: [facility] Address: [address] [place] [address] Performed By: #### L IPNF #### [facility] CLIA [id number] [address] [place] [address] [place] Sodium [Moles/Vol] 135 mmol/L Low 136-144 [facility] Comment on above: Order Comment: Speci men Type: BLOOD SPECIMEN Ordering Facility: [facility] Address: [address] [place] [address] Performed By: #### L IPNF #### [facility] CLIA [id number] [address] [place] [address] [place] Urea nitrogen [Mass/Vol] 48 mg/dL High 9-24 [facility] Comment on above: Order Comment: Speci men Type: BLOOD SPECIMEN Ordering Facility: [facility] Address: [address] [place] [address] Performed By: #### L IPNF #### [facility] CLIA [id number] [address] [place] [address] [place] HbA1c (Bld)on 10-17-2023 Average glucose Estimated from glycated hemoglobin (Bld) [Mass/Vol] 148 mg/dL Normal [facility] Comment on above: Order Comment: Nasir grace Type: BLOOD SPECIMEN Ordering Facility: [facility] Address: [address] [place] [address] Result Comment: eAG: (Estimated average glucose) is a calculated value from HgbA1c and is plastic products sales representative of the average blood glucose level in the last 2-3 month period. Performed By: #### L IPNF #### [facility] CLIA [id number] [address] [place] [address] [place] HbA1c (Bld) [Mass fraction] 6.8 % High 4.3-5.6 [facility] Comment on above: Order Comment: Nasir [facility] Type: BLOOD SPECIMEN Ordering Facility: [facility] Address: [address] [place] [address] Result Comment: [place] Diabetes Association guidelines indicate that patients with HgbA1c in the range 5.7-6.4% are at increased risk for development of diabetes, and intervention by lifestyle modification may be beneficial. HgbA1c greater or equal to 6.5% is considered diagnostic of diabetes. Performed By: #### L IPNF #### [facility] CLIA [id number] [address] [place] [address] [place] LIPID PANEL, NONFASTINGon Cholesterol [Mass/Vol] 138 mg/dL Normal <200 [facility] Comment on above: Order Comment: Nasir sanjay Type: BLOOD SPECIMEN Ordering Facility: [facility] Address: [address] [place] [address] Result Comment: <200 mg/dL, Desirable 200-239 mg/dL, Borderline high >239 mg/dL, High Performed By: #### L IPNF #### [facility] CLIA [id number] [address] [place] [address] [place] [facility] [place] HDL CHOLESTEROL, NF 40 mg/dL Normal >39 [facility] Comment on above: Order Comment: Nasir grace Type: BLOOD SPECIMEN Ordering Facility: [facility] Address: [address] [place] [address] Result Comment: 40-5 9 mg/dL, Acceptable >59 mg/dL, High: Negative risk factor for coronary heart disease <40 mg/dL, Low: Positive risk factor for coronary heart disease Performed By: #### L IPNF #### [facility] CLIA [id number] [address] [place] [address] OF [facility] LDL CHOLESTEROL, NF 55 mg/dL Normal <100 [facility] Comment on above: Order Comment: Nasir grace Type: BLOOD SPECIMEN Ordering Facility: [facility] Address: [address] [place] [address] Result Comment: <100 mg/dL, Optimal 100-129 mg/dL, Near optimal/above optimal 130-159 mg/dL, Borderline high 160-189 mg/dL, High >189 mg/dL, Very high Secondary prevention optimal LDL Cholesterol levels are recommended to be < 70 mg/dL Performed By: #### L IPNF #### [facility] CLIA [id number] [address] [place] [address] OF [place] LDL/HDL RATIO, NF 1.38 mg/dL Normal <2.54 [facility] Comment on above: Order Comment: Nasir grace Type: BLOOD SPECIMEN Ordering Facility: [facility] Address: [address] [place] [address] Result Comment: Fatoumata luciano: 1. National Cholesterol Education Program ATP III Guideline At-A-Glance Quick Desk Reference: National Heart, Lung, and Blood [place]. National Institutes of Health. 2001: NIH Publication No. 01-3305. 2. An International Atherosclerosis Society position paper: global recommendations for the management of dyslipidemia: executive summary, Atherosclerosis. 2014: 232(2):410-413. Performed By: #### L IPNF #### [facility] CLIA [id number] [address] [place] [address] [place] NON HDL CHOL, NF 98 mg/dL Normal <130 [facility] Comment on above: Order Comment: Speci men Type: BLOOD SPECIMEN Ordering Facility: [facility] Address: [address] [place] [address] Result Comment: <130 mg/dL, Optimal 130-159 mg/dL, Near optimal/above optimal 160-189 mg/dL, Borderline high 190-219 mg/dL, High >219 mg/dL, Very high Secondary prevention optimal non HDL Cholesterol levels are recommended to be <100 mg/dL Performed By: #### L IPNF #### [facility] CLIA [id number] [address] [place] [address] [place] T CHOL/HDL RATIO NF 3.45 mg/dL Normal <5.10 [facility] Comment on above: Order Comment: Speci men Type: BLOOD SPECIMEN Ordering Facility: [facility] Address: [address] [place] [address] Performed By: #### L IPNF #### [facility] CLIA [id number] [address] [place] [address] [place] TRIGLYCERIDES, NF 215 mg/dL High <150 [facility] Comment on above: Order Comment: Speci men Type: BLOOD SPECIMEN Ordering Facility: [facility] Address: [address] [place] [address] Result Comment: <150 mg/dL, Normal 150-199 mg/dL, Borderline high 200-499 mg/dL, High >499 mg/dL, Very high Performed By: #### L IPNF #### [facility] CLIA [id number] [address] [place] [address] [place] VLDL CHOLESTEROL, NF 43 mg/dL High <30 [facility] Comment on above: Order Comment: Speci men Type: BLOOD SPECIMEN Ordering Facility: [facility] Address: [address] [place] [address] Performed By: #### L IPNF #### [facility] CLIA [id number] [address] [facility] [place] [address] [place] Basophil percentageOrdered B y: Myrna Barrios on 06-01-2023 Basophil percentage 4.5 mg/dL 2.5-4.9 [facility] Chloride [Moles/Vol] 107 mmol/L 98-107 [facility] Glucose [Mass/Vol] 137 mg/dL 74-106 [facility] Comment on above: Fasting Glucose resu lt greater than or equal to 126 mg/dL suggests DIABETES MELLITUS per A.D.A. criteria. Potassium [Moles/Vol] 4.7 mmol/L 3.5-5.1 [facility] Sodium [Moles/Vol] 138 mmol/L 136-145 [facility] - Chemistry and C hemistry - challengeOrdered By: Myrna Barrios on 06-01-2023 CO2 [Moles/Vol] 26.0 mmol/L 21.0-32.0 [facility] Urea nitrogen/Creatinine [Mass ratio] 20.2 mg/mg 10-20 [facility] No Panel InformationOrdered By: Myrna Barrios on 06-01-2023 Estimated GFR (MDRD) Amer 33 mL/min >60 [facility] Comment on above: GFR Calc Estimated GFR (MDRD) Non-Af Amer 27 mL/min >60 [facility] Comment on above: Non- GFR Calc Serum or plasma calcium priyanka urement (mass/volume)Ordered By: Myrna Barrios on 06-01-2023 Calcium [Mass/Vol] 8.8 mg/dL 8.5-10.1 [facility] Serum or plasma creatinine m easurement (mass/volume)Ordered By: Myrna Barrios on 06-01-2023 Creatinine [Mass/Vol] 2.52 mg/dL 0.70-1.30 [facility] Comment on above: The validity of the calculated GFR & GFRAA in patients over 70 years has not been determined. Clinical correlation is essential. Serum or plasma urea nitroge n measurement (mass/volume)Ordered By: Myrna Barrios on 06-01-2023 Urea nitrogen [Mass/Vol] 51 mg/dL 7-18 [facility] Thin prep Papanicolaou smear with manual screeningOrdered By: Myrna Barrios on 06-01-2023 Thin prep Papanicolaou smear with manual screening 3.0 g/dL 3.2-5.0 [facility] HbA1c (Bld)on 05-10-2023 Average glucose Estimated from glycated hemoglobin (Bld) [Mass/Vol] 148 mg/dL [facility] HbA1c (Bld) [Mass fraction] 6.8 % High 4.3 - 5.6 % [facility] VITAMIN D 25 HYDROXYon 05-09 25-hydroxyvitamin D3 [Mass/Vol] 20.8 ng/mL Low 31.0 - 80.0 ng/mL [facility] Basophil percentageOrdered B y: Myrna Barrios on 04-21-2023 Basophil percentage 4.5 mg/dL 2.5-4.9 [facility] Chloride [Moles/Vol] 105 mmol/L 98-107 [facility] Glucose [Mass/Vol] 144 mg/dL 74-106 [facility] Comment on above: Fasting Glucose resu lt greater than or equal to 126 mg/dL suggests DIABETES MELLITUS per A.D.A. criteria. Potassium [Moles/Vol] 4.5 mmol/L 3.5-5.1 [facility] Sodium [Moles/Vol] 139 mmol/L 136-145 [facility] - Chemistry and C hemistry - challengeOrdered By: Myrna Barrios on 04-21-2023 CO2 [Moles/Vol] 27.0 mmol/L 21.0-32.0 [facility] Urea nitrogen/Creatinine [Mass ratio] 17.1 mg/mg 10-20 [facility] No Panel InformationOrdered By: Myrna Barrios on 04-21-2023 Estimated GFR (MDRD) Amer 34 mL/min >60 [facility] Comment on above: GFR Calc Estimated GFR (MDRD) Non-Af Amer 28 mL/min >60 [facility] Comment on above: Non- GFR Calc Serum or plasma calcium priyanka urement (mass/volume)Ordered By: Myrna Barrios on 04-21-2023 Calcium [Mass/Vol] 8.9 mg/dL 8.5-10.1 [facility] Serum or plasma creatinine m easurement (mass/volume)Ordered By: Myrna Barrios on 04-21-2023 Creatinine [Mass/Vol] 2.46 mg/dL 0.70-1.30 [facility] Comment on above: The validity of the calculated GFR & GFRAA in patients over 70 years has not been determined. Clinical correlation is essential. Serum or plasma urea nitroge n measurement (mass/volume)Ordered By: Myrna Barrios on 04-21-2023 Urea nitrogen [Mass/Vol] 42 mg/dL 7-18 [facility] Thin prep Papanicolaou smear with manual screeningOrdered By: Myrna Barrios on 04-21-2023 Protein (U) [Mass/Vol] 210.0 mg/dL 0.0-11.8 [facility] Thin prep Papanicolaou smear with manual screening 3.0 g/dL 3.2-5.0 [facility] Urine creatinine measurement (mass/volume)Ordered By: Myrna Barrios on 04-21-2023 Creatinine (U) [Mass/Vol] 58.90 mg/dL NO RANGE EST. [facility] Urine protein/creatinine mas s ratioOrdered By: Myrna Barrios on 04-21-2023 Protein/Creatinine (U) [Mass ratio] 3565 mg/g CRE 0-200 [facility] Basophil percentageOrdered B y: Myrna Barrios on 03-31-2023 Basophil percentage 3.0 mg/dL 2.5-4.9 [facility] Chloride [Moles/Vol] 105 mmol/L 98-107 [facility] Glucose [Mass/Vol] 135 mg/dL 74-106 [facility] Comment on above: Fasting Glucose resu lt greater than or equal to 126 mg/dL suggests DIABETES MELLITUS per A.D.A. criteria. Potassium [Moles/Vol] 5.0 mmol/L 3.5-5.1 [facility] Sodium [Moles/Vol] 136 mmol/L 136-145 [facility] - Chemistry and C hemistry - challengeOrdered By: Myrna Barrios on 03-31-2023 CO2 [Moles/Vol] 27.0 mmol/L 21.0-32.0 [facility] Urea nitrogen/Creatinine [Mass ratio] 17.7 mg/mg 10-20 [facility] No Panel InformationOrdered By: Myrna Barrios on 03-31-2023 Estimated GFR (MDRD) Amer 31 mL/min >60 [facility] Comment on above: GFR Calc Estimated GFR (MDRD) Non-Af Amer 26 mL/min >60 [facility] Comment on above: Non- GFR Calc Serum or plasma calcium priyanka urement (mass/volume)Ordered By: Myrna Barrios on 03-31-2023 Calcium [Mass/Vol] 8.9 mg/dL 8.5-10.1 [facility] Serum or plasma creatinine m easurement (mass/volume)Ordered By: Myrna Barrios on 03-31-2023 Creatinine [Mass/Vol] 2.66 mg/dL 0.70-1.30 [facility] Comment on above: The validity of the calculated GFR & GFRAA in patients over 70 years has not been determined. Clinical correlation is essential. Serum or plasma urea nitroge n measurement (mass/volume)Ordered By: Myrna Barrios on 03-31-2023 Urea nitrogen [Mass/Vol] 47 mg/dL 7-18 [facility] Thin prep Papanicolaou smear with manual screeningOrdered By: Myrna Barrios on 03-31-2023 Thin prep Papanicolaou smear with manual screening 2.9 g/dL 3.2-5.0 [facility] Basophil percentageOrdered B y: Piedad Han on 03-24-2023 Chloride [Moles/Vol] 104 mmol/L 98-107 [facility] Glucose [Mass/Vol] 64 mg/dL 74-106 [facility] Potassium [Moles/Vol] 4.6 mmol/L 3.5-5.1 [facility] Sodium [Moles/Vol] 138 mmol/L 136-145 [facility] CNOVon 03-24-2023 CNOV Office Visit (PEDRITO) -- GAMALIEL GRIFFIN ([id number]) 1955 M Date Time Provider Department 03/24/23 1:30 PM CARD REHAB PHASE 2 NAUN MAJOR During your visit today, we recorded the following information about you: Rod Fernandez, Deburring Machine Operator 03/24/2023 1:41 PM Signed [facility] Supervising Physician: Ricarda Medley Diagnosis: CABG Phase: 2 Monitor: Yes Session Number: 3 Today's exercise session was comprised of a warm-up, aerobic conditioning phase, aerobic cool-down, and free weight resistance training omitted. Patient tolerated prescribed exercise workload. Tele SR without ectopic beats. Vitals WNL for patient. No chest discomfort. No medication changes. This is a hospital based cardiac rehab program. Patient working towards exercise goals by sustaining exercise intensity and duration. Patient working towards education goal by attending education sessions in cardiac rehabilitation. Patient has verbalized understanding of exercise education topic and the relation to disease managment. Patient's Daily Exercise Log will be scanned into [facility] once it is completed. These can be viewed by going under the Scanned Documents tab and looking for documents labeled Cardiac Rehabilitation. Daily Exercise Logs contain exercise data such as, but not limited to modality, intensity, duration and frequency of exercise, along with vital signs pre-, during, and post-exercise. Refer to patient's paper medical record for ECG rhythm strips, physician prescribed Individualized Treatment Plan, and education sessions covered. Rod Fernandez Deburring Machine Operator Allergies As of Date: 03/24/2023 Noted Allergy Reaction LISINOPRIL 09/30/2022 7 - Swelling Date Reviewed: 02/02/2023 Reviewed by: Felicitas Castro, HANG - Fully Assessed Reason for Visit: Cardiac Rehab [3551] Primary Visit Diagnosis:S/P CABG (coronary artery bypass graft) [Z95.1] Prescriptions as of 03/24/2023 - dapagliflozin propanediol (FARXIGA) 10 mg tablet Take 0.5 tablets by mouth daily with breakfast. - isosorbide dinitrate (ISORDIL) 20 mg tablet Take 0.5 tablets by mouth three times a day. - metoprolol succinate ER (TOPROL XL) 50 mg 24 hr tablet Take 1 tablet by mouth two times a day. - acetaminophen (TYLENOL) 325 mg tablet Take 2 tablets by mouth every 4 hours as needed (mild to moderate pain). - furosemide (LASIX) 20 mg tablet Take 1 tablet by mouth once daily. - pantoprazole DR (PROTONIX) 20 mg tablet Take 1 tablet by mouth daily at 6 am for 14 days. - potassium chloride ER (KLOR-CON M10) 10 mEq tablet Take 1 tablet by mouth once daily. - senna-docusate (SENNA-S) 8.6-50 mg per tablet Take 1 tablet by mouth two times a day. Continue while on narcotic pain meds AND/or as needed thereafter for mild post-op constipation AND stool softening. - insulin glargine (LANTUS SOLOSTAR U-100 INSULIN) 100 unit/mL (3 mL) Inject 36 Units subcutaneously every morning. - insulin aspart U-100 (NOVOLOG FLEXPEN U-100 INSULIN) 100 unit/mL (3 mL) Inject 9 units with meals. Based on pre-meal blood sugar use following scale to add additional units as needed: 151-200 = 2 units. 201-250 = 4 units. 251-300 = 6 units. 301-350 = 8 units. 351- 400 = 10 units. - Insulin Union, Disposable, (BD ULTRA-FINE KENN PEN NEEDLE) 32 gauge x 5/32 Use to inject insulin 4 times a day - blood sugar diagnostic (TRUE METRIX GLUCOSE TEST STRIP) test strip Use as instructed to check blood sugar 4 times a day - Lancets lancets Use as directed to check blood sugars 4 times a day - hydrALAZINE (APRESOLINE) 25 mg tablet 25 mg three times a day. - levothyroxine (SYNTHROID) 175 mcg tablet 175 mcg once daily. - OTC PRODUCT Stool softner daily - rosuvastatin (CRESTOR) 20 mg tablet Take 20 mg by mouth once daily. - amLODIPine (NORVASC) 10 mg tablet Take 5 mg by mouth once daily. - aspirin, enteric coated (ASPIRIN, ENTERIC COATED) 81 mg EC tablet Take 81 mg by mouth once daily. - allopurinol (ZYLOPRIM) 300 mg tablet Take 300 mg by mouth once daily. - buPROPion SR (ZYBAN SR; WELLBUTRIN SR) 150 mg 12 hr tablet Take 150 mg by mouth twice daily. Problem List As Of Date 03/24/2023 Noted Resolved Ischemic cardiomyopathy [I25.5] 01/10/2023 CAD (coronary artery disease) [I25.10] 01/10/2023 Hypertensive kidney disease with stage 3 chroni*01/10/2023 Primary hypertension [I10] 01/10/2023 Stage 3b chronic kidney disease (HCC) [N18.32] 01/10/2023 Type 2 diabetes mellitus with stage 3b chronic *01/10/2023 Discharge planning issues [Z02.9] 01/24/2023 Pre-op testing [Z01.818] 01/24/2023 01/26/2023 Acute on chronic systolic congestive heart fail*01/26/2023 01/31/2023 HLD (hyperlipidemia) [E78.5] 01/26/2023 Hypothyroid [E03.9] 01/26/2023 Gout [M10.9] 01/26/2023 JESENIA (obstructive sleep apnea) [G47.33] 01/26/2023 Mitral regur (more content not included)... Normal [facility] GLUCOSE, BLOOD (POC)on 03-24 Glucose [Mass/Vol] 100 mg/dL Abnormal 74 - 99 mg/dL [facility] Glucose [Mass/Vol] 144 mg/dL Abnormal 74 - 99 mg/dL [facility] - Chemistry and C hemistry - challengeOrdered By: Piedad Han on 03-24-2023 CO2 [Moles/Vol] 27.0 mmol/L 21.0-32.0 [facility] Urea nitrogen/Creatinine [Mass ratio] 20.6 mg/mg 10-20 [facility] No Panel InformationOrdered By: Piedad Han on 03-24-2023 Estimated GFR (MDRD) Amer 25 mL/min >60 [facility] Comment on above: GFR Calc Estimated GFR (MDRD) Non-Af Amer 21 mL/min >60 [facility] Comment on above: Non- GFR Calc Serum or plasma calcium priyanka urement (mass/volume)Ordered By: Piedad Han on 03-24-2023 Calcium [Mass/Vol] 8.8 mg/dL 8.5-10.1 [facility] Serum or plasma creatinine m easurement (mass/volume)Ordered By: Piedad Han on 03-24-2023 Creatinine [Mass/Vol] 3.16 mg/dL 0.70-1.30 [facility] Comment on above: The validity of the calculated GFR & GFRAA in patients over 70 years has not been determined. Clinical correlation is essential. Serum or plasma urea nitroge n measurement (mass/volume)Ordered By: Piedad Han on 03-24-2023 Urea nitrogen [Mass/Vol] 65 mg/dL 7-18 [facility] Thin prep Papanicolaou smear with manual screeningOrdered By: Piedad Han on 03-24-2023 Thin prep Papanicolaou smear with manual screening 7 5-15 [facility] CNOVon 03-22-2023 CNOV Office Visit (PEDRITO) -- GAMALIEL GRIFFIN ([id number]) 1955 M Date Time Provider Department 03/22/23 1:30 PM CARD REHAB PHASE 2 NAUN MAJOR During your visit today, we recorded the following information about you: Jacob Gunter, strap stitcher 03/22/2023 1:51 PM Signed Cardiac Rehabilitation [facility] Program Supervising Physician: Ricarda Medley Diagnosis: CABG Phase: 2 Monitor: Yes Session Number: 2 Today's exercise session was comprised of a warm-up, aerobic conditioning phase, aerobic cool-down, and omitting free weight resistance training. Patient tolerated prescribed exercise workload. Tele SR without ectopic beats. Vitals WNL for patient. No chest discomfort. No medication changes. This is a hospital based cardiac rehab program. Patient working towards exercise goals by increasing exercise intensity and duration. Patient working towards education goal by attending education sessions in cardiac rehabilitation. Patient has verbalized understanding of Weight control education topic and the relation to disease managment. Patient's Daily Exercise Log will be scanned into [facility] once it is completed. These can be viewed by going under the Scanned Documents tab and looking for documents labeled Cardiac Rehabilitation. Daily Exercise Logs contain exercise data such as, but not limited to modality, intensity, duration and frequency of exercise, along with vital signs pre-, during, and post-exercise. Refer to patient's paper medical record for ECG rhythm strips, physician prescribed Individualized Treatment Plan, and education sessions covered. Jacob Gunter, Deburring Machine Operator Allergies As of Date: 03/22/2023 Noted Allergy Reaction LISINOPRIL 09/30/2022 7 - Swelling Date Reviewed: 02/02/2023 Reviewed by: Felicitas Castro RN - Fully Assessed Reason for Visit: Cardiac Rehab [3551] Primary Visit Diagnosis:S/P CABG (coronary artery bypass graft) [Z95.1] Prescriptions as of 03/22/2023 - dapagliflozin propanediol (FARXIGA) 10 mg tablet Take 0.5 tablets by mouth daily with breakfast. - isosorbide dinitrate (ISORDIL) 20 mg tablet Take 0.5 tablets by mouth three times a day. - metoprolol succinate ER (TOPROL XL) 50 mg 24 hr tablet Take 1 tablet by mouth two times a day. - acetaminophen (TYLENOL) 325 mg tablet Take 2 tablets by mouth every 4 hours as needed (mild to moderate pain). - furosemide (LASIX) 20 mg tablet Take 1 tablet by mouth once daily. - pantoprazole DR (PROTONIX) 20 mg tablet Take 1 tablet by mouth daily at 6 am for 14 days. - potassium chloride ER (KLOR-CON M10) 10 mEq tablet Take 1 tablet by mouth once daily. - senna-docusate (SENNA-S) 8.6-50 mg per tablet Take 1 tablet by mouth two times a day. Continue while on narcotic pain meds AND/or as needed thereafter for mild post-op constipation AND stool softening. - insulin glargine (LANTUS SOLOSTAR U-100 INSULIN) 100 unit/mL (3 mL) Inject 36 Units subcutaneously every morning. - insulin aspart U-100 (NOVOLOG FLEXPEN U-100 INSULIN) 100 unit/mL (3 mL) Inject 9 units with meals. Based on pre-meal blood sugar use following scale to add additional units as needed: 151-200 = 2 units. 201-250 = 4 units. 251-300 = 6 units. 301-350 = 8 units. 351- 400 = 10 units. - Insulin Union, Disposable, (BD ULTRA-FINE KENN PEN NEEDLE) 32 gauge x /32 Use to inject insulin 4 times a day - blood sugar diagnostic (TRUE METRIX GLUCOSE TEST STRIP) test strip Use as instructed to check blood sugar 4 times a day - Lancets lancets Use as directed to check blood sugars 4 times a day - hydrALAZINE (APRESOLINE) 25 mg tablet 25 mg three times a day. - levothyroxine (SYNTHROID) 175 mcg tablet 175 mcg once daily. - OTC PRODUCT Stool softner daily - rosuvastatin (CRESTOR) 20 mg tablet Take 20 mg by mouth once daily. - amLODIPine (NORVASC) 10 mg tablet Take 5 mg by mouth once daily. - aspirin, enteric coated (ASPIRIN, ENTERIC COATED) 81 mg EC tablet Take 81 mg by mouth once daily. - allopurinol (ZYLOPRIM) 300 mg tablet Take 300 mg by mouth once daily. - buPROPion SR (ZYBAN SR; WELLBUTRIN SR) 150 mg 12 hr tablet Take 150 mg by mouth twice daily. Problem List As Of Date 03/22/2023 Noted Resolved Ischemic cardiomyopathy [I25.5] 01/10/2023 CAD (coronary artery disease) [I25.10] 01/10/2023 Hypertensive kidney disease with stage 3 chroni*01/10/2023 Primary hypertension [I10] 01/10/2023 Stage 3b chronic kidney disease (HCC) [N18.32] 01/10/2023 Type 2 diabetes mellitus with stage 3b chronic *01/10/2023 Discharge planning issues [Z02.9] 01/24/2023 Pre-op testing [Z01.818] 01/24/2023 01/26/2023 Acute on chronic systolic congestive heart fail*01/26/2023 01/31/2023 HLD (hyperlipidemia) [E78.5] 01/26/2023 Hypothyroid [E03.9] 01/26/2023 Gout [M10.9] 01/26/2023 JESENIA (obstructive sleep apnea) [G47.33] 01/26/2023 Mitral regurgi (more content not included)... Normal [facility] GLUCOSE, BLOOD (POC)on 03-22 Glucose [Mass/Vol] 91 mg/dL 74 - 99 mg/dL [facility] Basophil percentageOrdered B y: Piedad Han on 03-17-2023 Chloride [Moles/Vol] 105 mmol/L 98-107 [facility] Glucose [Mass/Vol] 142 mg/dL 74-106 [facility] Comment on above: Fasting Glucose resu lt greater than or equal to 126 mg/dL suggests DIABETES MELLITUS per A.D.A. criteria. Potassium [Moles/Vol] 4.3 mmol/L 3.5-5.1 [facility] Sodium [Moles/Vol] 135 mmol/L 136-145 [facility] CNOVon 03-17-2023 CNOV Office Visit (PEDRITO) -- GAMALIEL GRIFFIN ([id number]) 1955 M Date Time Provider Department 03/17/23 1:30 PM CARD REHAB PHASE 2 [place] PEDRITO During your visit today, we recorded the following information about you: Rod Fernandez, Deburring Machine Operator 03/17/2023 1:57 PM Signed Cardiac Rehabilitation [facility] Program Supervising Physician: Ricarda Medley Diagnosis: CABG Phase: 2 Monitor: Yes Session Number: 1 Today's exercise session was comprised of a warm-up, aerobic conditioning phase, aerobic cool-down, and free weight resistance training. Patient tolerated prescribed exercise workload. Tele SR without ectopic beats. Vitals WNL for patient. No chest discomfort. No medication changes. This is a hospital based cardiac rehab program. Patient working towards exercise goals by increasing exercise frequency, intensity and duration. Patient working towards education goal by attending education sessions in cardiac rehabilitation. Patient has verbalized understanding of cholesterol education topic and the relation to disease managment. Patient's Daily Exercise Log will be scanned into [facility] once it is completed. These can be viewed by going under the Scanned Documents tab and looking for documents labeled Cardiac Rehabilitation. Daily Exercise Logs contain exercise data such as, but not limited to modality, intensity, duration and frequency of exercise, along with vital signs pre-, during, and post-exercise. Refer to patient's paper medical record for ECG rhythm strips, physician prescribed Individualized Treatment Plan, and education sessions covered. Rod Fernandez, Deburring Machine Operator Allergies As of Date: 03/17/2023 Noted Allergy Reaction LISINOPRIL 09/30/2022 7 - Swelling Date Reviewed: 02/02/2023 Reviewed by: Felicitas Castro RN - Fully Assessed Reason for Visit: Cardiac Rehab [3551] Primary Visit Diagnosis:S/P CABG (coronary artery bypass graft) [Z95.1] Prescriptions as of 03/17/2023 - dapagliflozin propanediol (FARXIGA) 10 mg tablet Take 0.5 tablets by mouth daily with breakfast. - isosorbide dinitrate (ISORDIL) 20 mg tablet Take 0.5 tablets by mouth three times a day. - metoprolol succinate ER (TOPROL XL) 50 mg 24 hr tablet Take 1 tablet by mouth two times a day. - acetaminophen (TYLENOL) 325 mg tablet Take 2 tablets by mouth every 4 hours as needed (mild to moderate pain). - furosemide (LASIX) 20 mg tablet Take 1 tablet by mouth once daily. - pantoprazole DR (PROTONIX) 20 mg tablet Take 1 tablet by mouth daily at 6 am for 14 days. - potassium chloride ER (KLOR-CON M10) 10 mEq tablet Take 1 tablet by mouth once daily. - senna-docusate (SENNA-S) 8.6-50 mg per tablet Take 1 tablet by mouth two times a day. Continue while on narcotic pain meds AND/or as needed thereafter for mild post-op constipation AND stool softening. - insulin glargine (LANTUS SOLOSTAR U-100 INSULIN) 100 unit/mL (3 mL) Inject 36 Units subcutaneously every morning. - insulin aspart U-100 (NOVOLOG FLEXPEN U-100 INSULIN) 100 unit/mL (3 mL) Inject 9 units with meals. Based on pre-meal blood sugar use following scale to add additional units as needed: 151-200 = 2 units. 201-250 = 4 units. 251-300 = 6 units. 301-350 = 8 units. 351- 400 = 10 units. - Insulin Union, Disposable, (BD ULTRA-FINE KENN PEN NEEDLE) 32 gauge x 5/32 Use to inject insulin 4 times a day - blood sugar diagnostic (TRUE METRIX GLUCOSE TEST STRIP) test strip Use as instructed to check blood sugar 4 times a day - Lancets lancets Use as directed to check blood sugars 4 times a day - hydrALAZINE (APRESOLINE) 25 mg tablet 25 mg three times a day. - levothyroxine (SYNTHROID) 175 mcg tablet 175 mcg once daily. - OTC PRODUCT Stool softner daily - rosuvastatin (CRESTOR) 20 mg tablet Take 20 mg by mouth once daily. - amLODIPine (NORVASC) 10 mg tablet Take 5 mg by mouth once daily. - aspirin, enteric coated (ASPIRIN, ENTERIC COATED) 81 mg EC tablet Take 81 mg by mouth once daily. - allopurinol (ZYLOPRIM) 300 mg tablet Take 300 mg by mouth once daily. - buPROPion SR (ZYBAN SR; WELLBUTRIN SR) 150 mg 12 hr tablet Take 150 mg by mouth twice daily. Problem List As Of Date 03/17/2023 Noted Resolved Ischemic cardiomyopathy [I25.5] 01/10/2023 CAD (coronary artery disease) [I25.10] 01/10/2023 Hypertensive kidney disease with stage 3 chroni*01/10/2023 Primary hypertension [I10] 01/10/2023 Stage 3b chronic kidney disease (HCC) [N18.32] 01/10/2023 Type 2 diabetes mellitus with stage 3b chronic *01/10/2023 Discharge planning issues [Z02.9] 01/24/2023 Pre-op testing [Z01.818] 01/24/2023 01/26/2023 Acute on chronic systolic congestive heart fail*01/26/2023 01/31/2023 HLD (hyperlipidemia) [E78.5] 01/26/2023 Hypothyroid [E03.9] 01/26/2023 Gout [M10.9] 01/26/2023 JESENIA (obstructive sleep apnea) [G47.33] 01/26/2023 Mitr (more content not included)... Normal [facility] - Chemistry and C hemistry - challengeOrdered By: Piedad Han on 03-17-2023 CO2 [Moles/Vol] 28.0 mmol/L 21.0-32.0 [facility] Urea nitrogen/Creatinine [Mass ratio] 20.2 mg/mg - [facility] No Panel InformationOrdered By: Piedad Han on 03-17-2023 Estimated GFR (MDRD) Amer 31 mL/min >60 [facility] Comment on above: GFR Calc Estimated GFR (MDRD) Non-Af Amer 26 mL/min >60 [facility] Comment on above: Non- GFR Calc Serum or plasma calcium priyanka urement (mass/volume)Ordered By: Piedad Han on 03-17-2023 Calcium [Mass/Vol] 8.8 mg/dL 8.5-10.1 [facility] Serum or plasma creatinine m easurement (mass/volume)Ordered By: Piedad Han on 03-17-2023 Creatinine [Mass/Vol] 2.62 mg/dL 0.70-1.30 [facility] Comment on above: The validity of the calculated GFR & GFRAA in patients over 70 years has not been determined. Clinical correlation is essential. Serum or plasma urea nitroge n measurement (mass/volume)Ordered By: Piedad Han on 03-17-2023 Urea nitrogen [Mass/Vol] 53 mg/dL 7-18 [facility] Thin prep Papanicolaou smear with manual screeningOrdered By: Piedad Han on 03-17-2023 Thin prep Papanicolaou smear with manual screening 2 5-15 [facility] CNOVon 03-14-2023 CNOV Office Visit (PEDRITO) -- GAMALIEL GRIFFIN ([id number]) 1955 M Date Time Provider Department 03/14/23 11:00 AM CARD EXERCISE NAUN MAJOR During your visit today, we recorded the following information about you: Pulse Blood pressure Weight Height 60/minute 116/60 85.5 kg 1.753 m Paris Kohler, [employer] Machine Operator 03/14/2023 12:24 PM [facility] Edison Velma Astorga Department of Cardiovascular Medicine Initial Assessment for Cardiac Rehab Gamaliel Griffin 03/14/2023 CHIEF COMPLAINT: Gamaliel Griffin is a 67 year old male seen today. Patient presents with: Cardiac Rehab Eval: Initial Assessment HISTORY OF PRESENT ILLNESS: CABG PAST MEDICAL HISTORY Diagnosis Date Anemia, unspecified CAD (coronary artery disease) Cardiomyopathy (HCC) Congestive heart failure (HCC) Diabetes mellitus (HCC) Dyslipidemia Essential hypertension Gout H/O heart artery stent Hypothyroidism Kidney stone Sleep apnea PAST SURGICAL HISTORY Procedure Laterality Date COLONOSCOPY FLX DX W/COLLJ SPEC WHEN PFRMD 06/23/2020 PAST SURGICAL HISTORY OF Cardiac stent x 4 Social History Tobacco Use Smoking status: Never Smokeless tobacco: Never Alcohol use: Never Drug use: Never FAMILY HISTORY Problem Relation Age of Onset other (passed at age 82) Mother Intersitial Lung Disease Mother Heart Attack Father other (passed at age 53) Father Cancer Paternal Grandfather Diabetes Sister other (valve disease) Sister other (atrial fib) Sister CURRENT MEDS: Current Outpatient Medications Medication Sig dapagliflozin propanediol (FARXIGA) 10 mg tablet Take 0.5 tablets by mouth daily with breakfast. isosorbide dinitrate (ISORDIL) 20 mg tablet Take 0.5 tablets by mouth three times a day. metoprolol succinate ER (TOPROL XL) 50 mg 24 hr tablet Take 1 tablet by mouth two times a day. acetaminophen (TYLENOL) 325 mg tablet Take 2 tablets by mouth every 4 hours as needed (mild to moderate pain). furosemide (LASIX) 20 mg tablet Take 1 tablet by mouth once daily. pantoprazole DR (PROTONIX) 20 mg tablet Take 1 tablet by mouth daily at 6 am for 14 days. potassium chloride ER (KLOR-CON M10) 10 mEq tablet Take 1 tablet by mouth once daily. senna-docusate (SENNA-S) 8.6-50 mg per tablet Take 1 tablet by mouth two times a day. Continue while on narcotic pain meds AND/or as needed thereafter for mild post-op constipation AND stool softening. insulin glargine (LANTUS SOLOSTAR U-100 INSULIN) 100 unit/mL (3 mL) Inject 36 Units subcutaneously every morning. insulin aspart U-100 (NOVOLOG FLEXPEN U-100 INSULIN) 100 unit/mL (3 mL) Inject 9 units with meals. Based on pre-meal blood sugar use following scale to add additional units as needed: 151-200 = 2 units. 201-250 = 4 units. 251-300 = 6 units. 301-350 = 8 units. 351- 400 = 10 units. Insulin Union, Disposable, (BD ULTRA-FINE KENN PEN NEEDLE) 32 gauge x 5/32 Use to inject insulin 4 times a day blood sugar diagnostic (TRUE METRIX GLUCOSE TEST STRIP) test strip Use as instructed to check blood sugar 4 times a day Lancets lancets Use as directed to check blood sugars 4 times a day hydrALAZINE (APRESOLINE) 25 mg tablet 25 mg three times a day. levothyroxine (SYNTHROID) 175 mcg tablet 175 mcg once daily. OTC PRODUCT Stool softner daily rosuvastatin (CRESTOR) 20 mg tablet Take 20 mg by mouth once daily. amLODIPine (NORVASC) 10 mg tablet Take 5 mg by mouth once daily. aspirin, enteric coated (ASPIRIN, ENTERIC COATED) 81 mg EC tablet Take 81 mg by mouth once daily. allopurinol (ZYLOPRIM) 300 mg tablet Take 300 mg by mouth once daily. buPROPion SR (ZYBAN SR; WELLBUTRIN SR) 150 mg 12 hr tablet Take 150 mg by mouth twice daily. No current facility-administered medications for this visit. ALLERGIES Allergen Reactions Lisinopril Swelling PHYSICAL EXAMINATION: BP 116/60 Pulse 60 Ht 5' 9 (1.75m) Wt 188 lb 8 oz (85.5kg) SpO2 96[RA]% BMI 27.82 kg/(m2). INDIVIDUAL TREATMENT PLAN Program Location: [facility] evaluation site : [facility] Completed : [facility] Program: Entry Phase II Primary Reason For Referral: CABG EXERCISE ASSESSMENT Current Exercise: Yes Type of Exercise: Walk;Strength (walks around house and has strength training machine at home) Exercise Duration: 40 minutes Exercise Intensity: Moderate Exercise Equipment: Yes (total gym; stationary bike at home) Exercise Limitations/Symptoms: No Assist Device: No Oxygen: No Stress Test: No 6 Minute Walk Test: Yes Date: 03/14/23 Distance (ft): 1280 Total Rest Time (seconds): 0 Lowest SPO2: 98 (RA) Peak Heart Rate BPM: 76 EXERCISE PLAN EXERCISE INTERVENTIONS Frequency: 2 Times Per Week Mode: Treadmill;Recumbent Stepper;Recumbent Bike;Elliptical;Weights Intensity: Within Set Target Heart Rate;Wit (more content not included)... Normal [facility] Absolute lymphocyte countOrd ered By: Piedad Trujillomaría elena on 03-09-2023 Lymphocytes Auto (Unsp spec) [#/Vol] 1.02 10*3/uL 0.83-4.51 [facility] Automated lymphocyte count a s percentage of total leukocytesOrdered By: Piedad Han on 03-09-2023 Lymphocytes/100 WBC Auto (Unsp spec) 12.0 % 19-41 [facility] Basophil percentageOrdered B y: Piedad Han on 03-09-2023 Basophil percentage 0 SEEN /hpf 0-5 [facility] Basophil percentage 3.8 mg/dL 2.5-4.9 [facility] Basophils/100 WBC (Bld) 0.6 % 0-1 [facility] Bilirubin [Mass/Vol] 0.20 mg/dL 0.20-1.00 [facility] Comment on above: For patients on eltr ombopag therapy, use of Dimension Jarales TBIL is not recommended. Chloride [Moles/Vol] 106 mmol/L 98-107 [facility] Cholesterol [Mass/Vol] 116 mg/dL <200 [facility] Comment on above: <200 mg/dL Desirable 200-240 mg/dL Borderline >240 mg/dL High Risk Eosinophils/100 WBC (Bld) 4.8 % 0-5 [facility] Glucose [Mass/Vol] 85 mg/dL 74-106 [facility] Hemoglobin (Bld) [Mass/Vol] 11.3 g/dL 13.0-16.5 [facility] Monocytes/100 WBC (Bld) 6.9 % 0-10 [facility] Neutrophils (Bld) [#/Vol] 6.4 10*3/uL 2.0-7.7 [facility] Neutrophils/100 WBC (Bld) 75.2 % 47-70 [facility] Potassium [Moles/Vol] 5.2 mmol/L 3.5-5.1 [facility] Protein [Mass/Vol] 6.6 g/dL 6.4-8.2 [facility] Sodium [Moles/Vol] 137 mmol/L 136-145 [facility] Triglyceride [Mass/Vol] 157 mg/dL <199 [facility] Comment on above: The drugs N-Acetylcy steine and Metamizole may falsely depress this assay.Serum Triglycerides Reference Interval Normal <150 mg/dL Borderline high 150 - 199 mg/dL High 200 - 499 mg/dL Very High > or = 500 mg/dL WBC (Bld) [#/Vol] 8.5 10*3/uL 4.4-11.0 [facility] Bilirubin Test strip Ql (U)O rdered By: Piedad Han on 03-09-2023 Bilirubin Ql (U) Negative Negative [facility] Determination of erythrocyte mean corpuscular volume (MCV)Ordered By: Piedad Han on 03-09-2023 MCV (RBC) [Entitic vol] 91.7 fL 80-94 [facility] Erythrocyte distribution wid th ratioOrdered By: Piedad Han on 03-09-2023 Erythrocyte distribution width (RBC) [Ratio] 14.7 % 11.6-14.6 [facility] Erythrocyte distribution wid th standard deviationOrdered By: Piedad Han on 03-09-2023 Erythrocyte distribution width (RBC) [Entitic vol] 49.4 fL 35.1-43.9 [facility] Hematocrit Auto (Bld) [Volum e fraction]Ordered By: Piedad Han on 03-09-2023 Hematocrit (Bld) [Volume fraction] 35.2 % 40-54 [facility] High density lipoprotein (HD L) measurementOrdered By: Piedad Han on 03-09-2023 Cholesterol in HDL (Body fld) [Mass/Vol] 39 mg/dL >40 [facility] Comment on above: The drugs N-Acetylcy steine and Metamizole may falsely depress this assay. Reference Range HDL <40 mg/dL Low HDL Cholesterol HDL >or= 60 mg/dL High HDL Cholesterol Immature granulocytes/100 WB C Auto (Bld)Ordered By: Piedad Han on 03-09-2023 Immature granulocytes/100 WBC (Bld) 0.500 % 0.0-0.9 [facility] Comment on above: IG% - Immature Granu locytes (promyelocytes, myelocytes and metamyelocytes) > 1% indicates that a LEFT SHIFT is Present. Intact parathyroid hormone ( iPTH) measurementOrdered By: Piedad Han on 03-09-2023 Parathyrin.intact (Tissue fine needle aspirate) [Mass/Vol] 99.9 pg/mL 18.4-80.1 [facility] Ketones Test strip Ql (U)Ord ered By: Piedad Han on 03-09-2023 Ketones Ql (U) Negative Negative [facility] Laboratory - Chemistry and C hemistry - challengeOrdered By: Piedad Han on 03-09-2023 Albumin/Globulin [Mass ratio] 0.8 {ratio} 0.9-2.4 [facility] ALP [Catalytic activity/Vol] 123 U/L 45-117 [facility] ALT [Catalytic activity/Vol] 22 U/L 16-61 [facility] CO2 [Moles/Vol] 26.0 mmol/L 21.0-32.0 [facility] Globulin (S) [Mass/Vol] 3.7 g/dL 2.2-4.2 [facility] Magnesium [Mass/Vol] 2.5 mg/dL 1.6-2.6 [facility] Urea nitrogen/Creatinine [Mass ratio] 22.5 mg/mg 10-20 [facility] Laboratory - Hematology and Cell countsOrdered By: Piedad Han on 03-09-2023 MCH (RBC) [Entitic mass] 29.4 pg 27.0-32.0 [facility] MCHC (RBC) [Mass/Vol] 32.1 g/dL 32-36 [facility] Nucleated RBC/100 WBC (Bld) [Ratio] 0 % 0-5 [facility] Platelets (Bld) [#/Vol] 272 10*3/uL 150-450 [facility] Low density lipoprotein (LDL ) cholesterol measurementOrdered By: Piedad Han on 03-09-2023 Cholesterol in LDL (Body fld) [Moles/Vol] 46 mg/dL 0-130 [facility] Mucus LM Ql (Urine sed)Order ed By: Piedad Han on 03-09-2023 Mucus Ql (Urine sed) 0 SEEN /hpf [facility] Nitrite Test strip Ql (U)Ord ered By: Piedad Han on 03-09-2023 Nitrite Ql (U) Negative Negative [facility] No Panel InformationOrdered By: Piedad Han on 03-09-2023 Estimated GFR (MDRD) Amer 31 mL/min >60 [facility] Comment on above: GFR Calc Estimated GFR (MDRD) Non-Af Amer 26 mL/min >60 [facility] Comment on above: Non- GFR Calc Urine RBC 0 SEEN /hpf 0-5 [facility] Vitamin D 25-Hydroxy 19.9 ng/mL [facility] Comment on above: Vitamin D 25(OH) Sta tus Range Deficiency <20 ng/mL (50nmol/L) Insufficiency 20 - 30 ng/mL (50 - 75 nmol/L) Sufficiency 30 - 100 ng/mL (75 - 250 nmol/L) Toxicity >100 ng/mL (>250 nmol/L) Platelet mean volume Shay-Ec ker (Bld) [Entitic vol]Ordered By: Piedad Han on 03-09-2023 Platelet mean volume (Bld) [Entitic vol] 8.6 fL 6.2-12.0 [facility] Protein Test strip Ql (U)Ord ered By: Piedad Han on 03-09-2023 Protein Ql (U) 100 mg/dl Negative [facility] RBC Auto (Bld) [#/Vol]Ordere d By: Piedad Han on 03-09-2023 RBC (Bld) [#/Vol] 3.84 10*6/uL 4.6-6.2 [facility] Serum or plasma calcium priyanka urement (mass/volume)Ordered By: Piedad Han on 03-09-2023 Calcium [Mass/Vol] 8.7 mg/dL 8.5-10.1 [facility] Serum or plasma creatinine m easurement (mass/volume)Ordered By: Piedad Han on 03-09-2023 Creatinine [Mass/Vol] 2.62 mg/dL 0.70-1.30 [facility] Comment on above: The validity of the calculated GFR & GFRAA in patients over 70 years has not been determined. Clinical correlation is essential. Serum or plasma thyroid stim ulating hormone (TSH) measurement (units/volume)Ordered By: Piedad aHn on 03-09-2023 TSH Qn 1.32 uIU/mL 0.358-3.74 [facility] Serum or plasma urea nitroge n measurement (mass/volume)Ordered By: Piedad Han on 03-09-2023 Urea nitrogen [Mass/Vol] 59 mg/dL 7-18 [facility] Squamous epithelial cells de tection in urine sediment by light microscopyOrdered By: Piedad Han on 03-09-2023 Epithelial cells.squamous LM Ql (Urine sed) 0 SEEN /hpf 0-5 [facility] Thin prep Papanicolaou smear with manual screeningOrdered By: Piedad Han on 03-09-2023 Protein (U) [Mass/Vol] 190.1 mg/dL 0.0-11.8 [facility] Thin prep Papanicolaou smear with manual screening 2.9 g/dL 3.2-5.0 [facility] Thin prep Papanicolaou smear with manual screening 18 U/L 15-37 [facility] Thin prep Papanicolaou smear with manual screening 5 5-15 [facility] Thin prep Papanicolaou smear with manual screening 1.28 ng/dL 0.76-1.46 [facility] Urine blood detectionOrdered By: Piedad Han on 03-09-2023 RBC Ql (U) Negative Negative [facility] Urine clarityOrdered By: Zhang Han on 03-09-2023 Clarity (U) Clear Clear [facility] Urine color determinationOrd ered By: Piedad Han on 03-09-2023 Color (U) Yellow Yellow [facility] Urine creatinine measurement (mass/volume)Ordered By: Piedad Han on 03-09-2023 Creatinine (U) [Mass/Vol] 76.00 mg/dL NO RANGE EST. [facility] Urine glucose detectionOrder ed By: Piedad Han on 03-09-2023 Glucose Ql (U) 1000 mg/dl Normal [facility] Urine leukocyte esterase det ection by dipstickOrdered By: Piedad Han on 03-09-2023 Leukocyte esterase Test strip Ql (U) Negative Negative [facility] Urine pHOrdered By: Piedad ring on 03-09-2023 pH (U) 5.0 [pH] 5.0 - 8.0 [facility] Urine protein/creatinine mas s ratioOrdered By: Piedad Han on 03-09-2023 Protein/Creatinine (U) [Mass ratio] 2501 mg/g CRE 0-200 [facility] Urine sediment bacteria coun t by microscopy (number/high power field)Ordered By: Piedad Han on 03-09-2023 Bacteria LM.HPF (Urine sed) [#/Area] 0 /[HPF] None Seen [facility] Urine specific gravity measu rementOrdered By: Piedad Han on 03-09-2023 Specific gravity (U) [Rel density] 1.015 1.002-1.03 0 [facility] Urine urobilinogen measureme ntOrdered By: Piedad Han on 03-09-2023 Urobilinogen Ql (U) Normal mg/dl Normal [facility] Very low density lipoprotein (VLDL) cholesterol measurementOrdered By: Piedad Han on 03-09-2023 Cholesterol in VLDL Calc [Moles/Vol] 31 mg/dL 5-40 [facility] Whole blood hemoglobin A1c/t otal hemoglobin ratio (mass fraction)Ordered By: Piedad Han on 03-09-2023 HbA1c (Bld) [Mass fraction] 6.3 % 3.8-5.6 [facility] Comment on above: Normal < 5.7 % Predi abetic 5.7 - 6.4 % Diabetic >or= 6.5 % Please note range changes. Basophil percentageOrdered B y: Beena Jay on 02-07-2023 Chloride [Moles/Vol] 107 mmol/L 98-107 [facility] Glucose [Mass/Vol] 74 mg/dL 74-106 [facility] Potassium [Moles/Vol] 4.6 mmol/L 3.5-5.1 [facility] Sodium [Moles/Vol] 136 mmol/L 136-145 [facility] Laboratory - Chemistry and C hemistry - challengeOrdered By: Beena Jay on 02-07-2023 CO2 [Moles/Vol] 26.0 mmol/L 21.0-32.0 [facility] Urea nitrogen/Creatinine [Mass ratio] 16.7 mg/mg 10-20 [facility] No Panel InformationOrdered By: Beena Jay on 02-07-2023 Estimated GFR (MDRD) Amer 31 mL/min >60 [facility] Comment on above: GFR Calc Estimated GFR (MDRD) Non-Af Amer 25 mL/min >60 [facility] Comment on above: Non- GFR Calc Serum or plasma calcium priyanka urement (mass/volume)Ordered By: Beena Jay on 02-07-2023 Calcium [Mass/Vol] 8.7 mg/dL 8.5-10.1 [facility] Serum or plasma creatinine m easurement (mass/volume)Ordered By: Beena Jay on 02-07-2023 Creatinine [Mass/Vol] 2.69 mg/dL 0.70-1.30 [facility] Comment on above: The validity of the calculated GFR & GFRAA in patients over 70 years has not been determined. Clinical correlation is essential. Serum or plasma urea nitroge n measurement (mass/volume)Ordered By: Beena Jay on 02-07-2023 Urea nitrogen [Mass/Vol] 45 mg/dL 7-18 [facility] Thin prep Papanicolaou smear with manual screeningOrdered By: Beena Jay on 02-07-2023 Thin prep Papanicolaou smear with manual screening 3 5-15 [facility] CNPNon 11-15-2022 CNPN Telephone (CARMOB) -- GAMALIEL GRIFFIN ([id number]) 1955 Date Time Provider Department 11/15/22 MANI LUIS During your visit today, we recorded the following information about you: Miguelina Kyle 11/15/2022 1:01 PM Signed Received a referral from [facility] the office of Dr. Ibarra. Patient is referred for atherosclerotic heart disease. Miguelina Kyle 11/15/2022 4:03 PM Signed New Patient Referral Requesting- Dr. Janelle Griffin : 1955 Reason- Atherosclerotic heart disease Records Scanned In Whit Alcaraz MA 11/18/2022 8:[address] Luis reviewed patient August Echocardiogram and referral information. After review. Dr. Luis advised that the patient would be best cared for at the [facility]. This was based on the patient EF and elevated Creatine. Advised Cielo, at Dr. Ibarra office, of Dr. Luis decision. It was also requested that the scheduled repeat Echo on 11/25/22 be canceled. Cielo expressed an understanding advising she would forward the information to Dr. Ibarra. Whit Alcaraz MA *Patient advised of decision. Patient expressed an understanding. Allergies As of Date: 11/15/2022 (No Known Allergies) Date Reviewed: 06/23/2020 Reviewed by: Elio Corbin RN - Fully Assessed Reason for Visit: Appointment [186] Patient Update [1234] Prescriptions as of 11/18/2022 - semaglutide (OZEMPIC) 0.25 mg or 0.5 mg(2 mg/1.5 mL) pnij Inject 0.25 mg subcutaneously one time a week. - rosuvastatin (CRESTOR) 20 mg tablet Take 20 mg by mouth once daily. - amLODIPine (NORVASC) 10 mg tablet Take 10 mg by mouth once daily. - LANTUS SOLOSTAR U-100 INSULIN 100 unit/mL (3 mL) twice daily. - aspirin, enteric coated (ASPIRIN, ENTERIC COATED) 81 mg EC tablet Take 81 mg by mouth once daily. - allopurinol (ZYLOPRIM) 300 mg tablet Take 300 mg by mouth once daily. - lisinopril (ZESTRIL, PRINIVIL) 10 mg tablet Take 10 mg by mouth once daily. - buPROPion SR (ZYBAN SR; WELLBUTRIN SR) 150 mg 12 hr tablet Take 150 mg by mouth twice daily. - AFLURIA QUAD [id number], PF, 60 mcg/0.5 mL syrg To be injected by Pharmacist - benzonatate (TESSALON PERLES) 100 mg capsule Take 1 capsule by mouth three times daily as needed for Cough. - mometasone (NASONEX) 50 mcg/actuation nasal spray Use 2 Sprays in each nostril once daily. Problem List As Of Date: 11/15/2022 (None) Encounter Status:Closed by WHIT ALCARAZ on 11/18/22 [facility] Basophil percentageOrdered B y: Pedro Ibarra on 11-08-2022 Chloride [Moles/Vol] 110 mmol/L 98-107 [facility] Glucose [Mass/Vol] 209 mg/dL 74-106 [facility] Comment on above: Glucose result great er than or equal to 200 mg/dLsuggests DIABETES MELLITUS per A.D.A. criteria. Potassium [Moles/Vol] 4.4 mmol/L 3.5-5.1 [facility] Sodium [Moles/Vol] 138 mmol/L 136-145 [facility] Laboratory - Chemistry and C hemistry - challengeOrdered By: Pedro Ibarra on 11-08-2022 CO2 [Moles/Vol] 22.0 mmol/L 21.0-32.0 [facility] Urea nitrogen/Creatinine [Mass ratio] 16.6 mg/mg 10-20 [facility] No Panel InformationOrdered By: Pedro Ibarra on 11-08-2022 Estimated Creatinine Clearance Calc 33.97 ml/min [facility] Estimated GFR (MDRD) Amer 40 mL/min >60 [facility] Comment on above: GFR Calc Estimated GFR (MDRD) Non-Af Amer 33 mL/min >60 [facility] Comment on above: Non- GFR Calc Serum or plasma calcium priyanka urement (mass/volume)Ordered By: Pedro Ibarra on 11-08-2022 Calcium [Mass/Vol] 8.1 mg/dL 8.5-10.1 [facility] Serum or plasma creatinine m easurement (mass/volume)Ordered By: Pedro Ibarra on 11-08-2022 Creatinine [Mass/Vol] 2.11 mg/dL 0.70-1.30 [facility] Comment on above: The validity of the calculated GFR & GFRAA in patients over 70 years has not been determined. Clinical correlation is essential. Serum or plasma urea nitroge n measurement (mass/volume)Ordered By: Pedro Ibarra on 11-08-2022 Urea nitrogen [Mass/Vol] 35 mg/dL 7-18 [facility] Thin prep Papanicolaou smear with manual screeningOrdered By: Pedro Ibarra on 11-08-2022 Thin prep Papanicolaou smear with manual screening 6 5-15 [facility] Glucose Glucometer (BldC) [M ass/Vol]Ordered By: Pedro Ibarra on 11-07-2022 Glucose [Mass/Vol] 260 mg/dL 74-106 [facility] Comment on above: MANAGEMENT OF PATIEN T CARE PER NURSING PROTOCOL Basophil percentageOrdered B y: Pedro Ibarra on 11-03-2022 Chloride [Moles/Vol] 104 mmol/L 98-107 [facility] Glucose [Mass/Vol] 197 mg/dL 74-106 [facility] Comment on above: Fasting Glucose resu lt greater than or equal to 126 mg/dL suggests DIABETES MELLITUS per A.D.A. criteria. Potassium [Moles/Vol] 4.6 mmol/L 3.5-5.1 [facility] Sodium [Moles/Vol] 135 mmol/L 136-145 [facility] WBC (Bld) [#/Vol] 7.8 10*3/uL 4.4-11.0 [facility] Blood erythrocytes count (nu mber/volume)Ordered By: Pedro Ibarra on 11-03-2022 RBC (Bld) [#/Vol] 4.41 10*6/uL 4.6-6.2 [facility] Blood hemoglobin measurement (mass/volume)Ordered By: Pedro Ibarra on 11-03-2022 Hemoglobin (Bld) [Mass/Vol] 13.3 g/dL 13.0-16.5 [facility] Blood platelet mean volumeOr dered By: Pedro Ibarra on 11-03-2022 Platelet mean volume (Bld) [Entitic vol] 9.2 fL 6.2-12.0 [facility] Determination of erythrocyte mean corpuscular volume (MCV)Ordered By: Pedro Ibarra on 11-03-2022 MCV (RBC) [Entitic vol] 91.6 fL 80-94 [facility] Hematocrit Auto (Bld) [Volum e fraction]Ordered By: Pedro Ibarra on 11-03-2022 Hematocrit (Bld) [Volume fraction] 40.4 % 40-54 [facility] INR in Blood by Coagulation assayOrdered By: Pedro Ibarra on 11-03-2022 INR Coag (Bld) [Relative time] 1.0 {INR} [facility] Laboratory - Chemistry and C hemistry - challengeOrdered By: Pedro Ibarra on 11-03-2022 CO2 [Moles/Vol] 27.0 mmol/L 21.0-32.0 [facility] Urea nitrogen/Creatinine [Mass ratio] 19.1 mg/mg 10-20 [facility] Laboratory - CoagulationOrde red By: Pedro Ibarra on 11-03-2022 aPTT Coag (Bld) [Time] 25.6 s 24.1-36.2 [facility] PT Coag (PPP) [Time] 12.9 s 11.7-14.9 [facility] Laboratory - Hematology and Cell countsOrdered By: Pedro Ibarra on 11-03-2022 Erythrocyte distribution width (RBC) [Entitic vol] 44.0 fL 35.1-43.9 [facility] Erythrocyte distribution width (RBC) [Ratio] 13.3 % 11.6-14.6 [facility] MCH (RBC) [Entitic mass] 30.2 pg 27.0-32.0 [facility] MCHC Auto (RBC) [Mass/Vol]Or dered By: Pedro Ibarra on 11-03-2022 MCHC (RBC) [Mass/Vol] 32.9 g/dL 32-36 [facility] No Panel InformationOrdered By: Pedro Ibarra on 11-03-2022 Estimated GFR (MDRD) Amer 34 mL/min >60 [facility] Comment on above: GFR Calc Estimated GFR (MDRD) Non-Af Amer 28 mL/min >60 [facility] Comment on above: Non- GFR Calc Platelets bldOrdered By: Brian Ibarra on 11-03-2022 Platelets (Bld) [#/Vol] 198 10*3/uL 150-450 [facility] Serum or plasma calcium priyanka urement (mass/volume)Ordered By: Pedro Ibarra on 11-03-2022 Calcium [Mass/Vol] 8.9 mg/dL 8.5-10.1 [facility] Serum or plasma creatinine m easurement (mass/volume)Ordered By: Pedro Ibarra on 11-03-2022 Creatinine [Mass/Vol] 2.46 mg/dL 0.70-1.30 [facility] Comment on above: The validity of the calculated GFR & GFRAA in patients over 70 years has not been determined. Clinical correlation is essential. Serum or plasma urea nitroge n measurement (mass/volume)Ordered By: Pedro Ibarra on 11-03-2022 Urea nitrogen [Mass/Vol] 47 mg/dL 08-30 [facility] Thin prep Papanicolaou smear with manual screeningOrdered By: Pedro Ibarra on 11-03-2022 Thin prep Papanicolaou smear with manual screening 4 - [facility] Absolute lymphocyte countOrd ered By: Piedad Han on 08-30-2022 Lymphocytes Auto (Unsp spec) [#/Vol] 1.14 10*3/uL 0.83-4.51 [facility] Basophil percentageOrdered B y: Piedad Han on 08-30-2022 Basophil percentage 0 SEEN /hpf 0-5 [facility] Basophil percentage 4.0 mg/dL 2.5-4.9 [facility] Basophils/100 WBC (Bld) 0.8 % 0-1 [facility] Bilirubin [Mass/Vol] 0.30 mg/dL 0.20-1.00 [facility] Comment on above: For patients on eltr ombopag therapy, use of Dimension Jarales TBIL is not recommended. Chloride [Moles/Vol] 103 mmol/L 98-107 [facility] Cholesterol [Mass/Vol] 123 mg/dL <200 [facility] Comment on above: <200 mg/dL Desirable 200-240 mg/dL Borderline >240 mg/dL High Risk Eosinophils/100 WBC (Bld) 5.5 % 0-5 [facility] Glucose [Mass/Vol] 134 mg/dL 74-106 [facility] Comment on above: Fasting Glucose resu lt greater than or equal to 126 mg/dL suggests DIABETES MELLITUS per A.D.A. criteria. Neutrophils (Bld) [#/Vol] 4.3 10*3/uL 2.0-7.7 [facility] Neutrophils/100 WBC (Bld) 65.6 % 47-70 [facility] Potassium [Moles/Vol] 4.8 mmol/L 3.5-5.1 [facility] Protein [Mass/Vol] 6.7 g/dL 6.4-8.2 [facility] Sodium [Moles/Vol] 135 mmol/L 136-145 [facility] Triglyceride [Mass/Vol] 141 mg/dL <199 [facility] Comment on above: The drugs N-Acetylcy steine and Metamizole may falsely depress this assay.Serum Triglycerides Reference Interval Normal <150 mg/dL Borderline high 150 - 199 mg/dL High 200 - 499 mg/dL Very High > or = 500 mg/dL WBC (Bld) [#/Vol] 6.6 10*3/uL 4.4-11.0 [facility] Bilirubin Test strip Ql (U)O rdered By: Piedad Han on 08-30-2022 Bilirubin Ql (U) Negative Negative [facility] Blood erythrocytes count (nu mber/volume)Ordered By: Piedad Han on 08-30-2022 RBC (Bld) [#/Vol] 4.40 10*6/uL 4.6-6.2 [facility] Blood hemoglobin measurement (mass/volume)Ordered By: Piedad Han on 08-30-2022 Hemoglobin (Bld) [Mass/Vol] 13.3 g/dL 13.0-16.5 [facility] Blood lymphocytes/100 leukoc ytesOrdered By: Piedad Han on 08-30-2022 Lymphocytes/100 WBC (Bld) 17.3 % 19-41 [facility] Blood monocytes/100 leukocyt esOrdered By: Piedad Han on 08-30-2022 Monocytes/100 WBC (Bld) 10.5 % 0-10 [facility] Blood platelet mean volumeOr dered By: Piedad Han on 08-30-2022 Platelet mean volume (Bld) [Entitic vol] 8.6 fL 6.2-12.0 [facility] Determination of erythrocyte mean corpuscular volume (MCV)Ordered By: Piedad Han on 08-30-2022 MCV (RBC) [Entitic vol] 91.8 fL 80-94 [facility] Hematocrit Auto (Bld) [Volum e fraction]Ordered By: Piedad Han on 08-30-2022 Hematocrit (Bld) [Volume fraction] 40.4 % 40-54 [facility] Ketones Test strip Ql (U)Ord ered By: Piedad Han on 08-30-2022 Ketones Ql (U) Negative Negative [facility] Laboratory - Chemistry and C hemistry - challengeOrdered By: Piedad Han on 08-30-2022 ALP [Catalytic activity/Vol] 112 U/L 45-117 [facility] ALT [Catalytic activity/Vol] 25 U/L 16-61 [facility] CO2 [Moles/Vol] 28.0 mmol/L 21.0-32.0 [facility] Free T4 [Mass/Vol] 1.19 ng/dL 0.76-1.46 [facility] Globulin (S) [Mass/Vol] 3.6 g/dL 2.2-4.2 [facility] Urea nitrogen/Creatinine [Mass ratio] 17.5 mg/mg 10-20 [facility] Laboratory - Hematology and Cell countsOrdered By: Piedad Han on 08-30-2022 Erythrocyte distribution width (RBC) [Entitic vol] 43.8 fL 35.1-43.9 [facility] Erythrocyte distribution width (RBC) [Ratio] 13.1 % 11.6-14.6 [facility] Immature granulocytes/100 WBC (Bld) 0.300 % 0.0-0.9 [facility] Comment on above: IG% - Immature Granu locytes (promyelocytes, myelocytes and metamyelocytes) > 1% indicates that a LEFT SHIFT is Present. MCH (RBC) [Entitic mass] 30.2 pg 27.0-32.0 [facility] Nucleated RBC/100 WBC (Bld) [Ratio] 0 % 0-5 [facility] MCHC Auto (RBC) [Mass/Vol]Or dered By: Piedad Han on 08-30-2022 MCHC (RBC) [Mass/Vol] 32.9 g/dL 32-36 [facility] Mucus LM Ql (Urine sed)Order ed By: Piedad Han on 08-30-2022 Mucus Ql (Urine sed) 0 SEEN /hpf [facility] Nitrite Test strip Ql (U)Ord ered By: Piedad Han on 08-30-2022 Nitrite Ql (U) Negative Negative [facility] No Panel InformationOrdered By: Piedad Han on 08-30-2022 Estimated GFR (MDRD) Amer 36 mL/min >60 [facility] Comment on above: GFR Calc Estimated GFR (MDRD) Non-Af Amer 30 mL/min >60 [facility] Comment on above: Non- GFR Calc Parathyroid Hormone (Intact) 43.6 pg/mL 18.4-80.1 [facility] Thyroid Stimulating Hormone (TSH) 0.63 uIU/mL 0.358-3.74 [facility] Urine Microalbumin/Creatinine Ratio 2744.8 mg/g CRE <30 [facility] Vitamin D 25-Hydroxy 45.8 ng/mL [facility] Comment on above: Vitamin D 25(OH) Sta tus Range Deficiency <20 ng/mL (50nmol/L) Insufficiency 20 - 30 ng/mL (50 - 75 nmol/L) Sufficiency 30 - 100 ng/mL (75 - 250 nmol/L) Toxicity >100 ng/mL (>250 nmol/L) Platelets bldOrdered By: Zhang Han on 08-30-2022 Platelets (Bld) [#/Vol] 197 10*3/uL 150-450 [facility] Protein Test strip Ql (U)Ord ered By: Piedad Han on 08-30-2022 Protein Ql (U) 100 mg/dl Negative [facility] Serum or plasma albumin priyanka urement (mass/volume)Ordered By: Piedad Han on 08-30-2022 Albumin [Mass/Vol] 3.1 g/dL 3.2-5.0 [facility] Serum or plasma albumin/glob ulin mass ratioOrdered By: Piedad Han on 08-30-2022 Albumin/Globulin [Mass ratio] 0.9 {ratio} 0.9-2.4 [facility] Serum or plasma calcium priyanka urement (mass/volume)Ordered By: Piedad Han on 08-30-2022 Calcium [Mass/Vol] 9.3 mg/dL 8.5-10.1 [facility] Serum or plasma cholesterol in HDL measurement (mass/volume)Ordered By: Piedad Han on 08-30-2022 Cholesterol in HDL [Mass/Vol] 46 mg/dL >40 [facility] Comment on above: The drugs N-Acetylcy steine and Metamizole may falsely depress this assay. Reference Range HDL <40 mg/dL Low HDL Cholesterol HDL >or= 60 mg/dL High HDL Cholesterol Serum or plasma cholesterol in VLDL measurement (mass/volume)Ordered By: Piedad Han on 08-30-2022 Cholesterol in VLDL [Mass/Vol] 28 mg/dL 5-40 [facility] Serum or plasma creatinine m easurement (mass/volume)Ordered By: Piedad Han on 08-30-2022 Creatinine [Mass/Vol] 2.34 mg/dL 0.70-1.30 [facility] Comment on above: The validity of the calculated GFR & GFRAA in patients over 70 years has not been determined. Clinical correlation is essential. Serum or plasma low density lipoprotein (LDL) cholesterol measurement (mass/volume)Ordered By: Piedad Han on 08-30-2022 Cholesterol in LDL [Mass/Vol] 49 mg/dL 0-130 [facility] Serum or plasma urea nitroge n measurement (mass/volume)Ordered By: Piedad Han on 08-30-2022 Urea nitrogen [Mass/Vol] 41 mg/dL 7-18 [facility] Squamous epithelial cells de tection in urine sediment by light microscopyOrdered By: Piedad Han on 08-30-2022 Epithelial cells.squamous LM Ql (Urine sed) 0 SEEN /hpf 0-5 [facility] Thin prep Papanicolaou smear with manual screeningOrdered By: Piedad Han on 08-30-2022 Thin prep Papanicolaou smear with manual screening 22 U/L 15-37 [facility] Thin prep Papanicolaou smear with manual screening 4 5-15 [facility] Thin prep Papanicolaou smear with manual screening 527.0 mg/L NO RANGE EST. [facility] Urine blood detectionOrdered By: Piedad Han on 08-30-2022 RBC Ql (U) 10 /ul Negative [facility] RBC Ql (U) 0 SEEN /hpf 0-5 [facility] Urine clarityOrdered By: Zhang Han on 08-30-2022 Clarity (U) Clear Clear [facility] Urine color determinationOrd ered By: Piedad Han on 08-30-2022 Color (U) Straw Yellow [facility] Urine creatinine measurement (mass/volume)Ordered By: Piedad Han on 08-30-2022 Creatinine (U) [Mass/Vol] 19.20 mg/dL NO RANGE EST. [facility] Urine glucose detectionOrder ed By: Piedad Han on 08-30-2022 Glucose Ql (U) 1000 mg/dl Normal [facility] Urine leukocyte esterase det ection by dipstickOrdered By: Piedad Han on 08-30-2022 Leukocyte esterase Test strip Ql (U) Negative Negative [facility] Urine pHOrdered By: Piedad ring on 08-30-2022 pH (U) 6.5 [pH] 5.0 - 8.0 [facility] Urine protein measurement (m ass/volume)Ordered By: Piedad Hna on 08-30-2022 Protein (U) [Mass/Vol] 63.6 mg/dL 0.0-11.8 [facility] Urine protein/creatinine mas s ratioOrdered By: Piedad Han on 08-30-2022 Protein/Creatinine (U) [Mass ratio] 3313 mg/g CRE 0-200 [facility] Urine sediment bacteria coun t by microscopy (number/high power field)Ordered By: Piedad Han on 08-30-2022 Bacteria LM.HPF (Urine sed) [#/Area] 0 /[HPF] None Seen [facility] Urine specific gravity measu rementOrdered By: Piedad Han on 08-30-2022 Specific gravity (U) [Rel density] 1.005 1.002-1.03 0 [facility] Urobilinogen Auto test strip Ql (U)Ordered By: Piedad Han on 08-30-2022 Urobilinogen Ql (U) Normal mg/dl Normal [facility] Whole blood hemoglobin A1c/t otal hemoglobin ratio (mass fraction)Ordered By: Piedad Han on 08-30-2022 HbA1c (Bld) [Mass fraction] 8.3 % 3.8-5.6 [facility] Comment on above: Normal < 5.7 % Predi abetic 5.7 - 6.4 % Diabetic >or= 6.5 % Please note range changes. Basophil percentageOrdered B y: Piedad Han on 08-12-2022 Bilirubin [Mass/Vol] 0.30 mg/dL 0.20-1.00 [facility] Comment on above: For patients on eltr ombopag therapy, use of Dimension Jarales TBIL is not recommended. Chloride [Moles/Vol] 104 mmol/L 98-107 [facility] Glucose [Mass/Vol] 193 mg/dL 74-106 [facility] Comment on above: Fasting Glucose resu lt greater than or equal to 126 mg/dL suggests DIABETES MELLITUS per A.D.A. criteria. Potassium [Moles/Vol] 4.6 mmol/L 3.5-5.1 [facility] Protein [Mass/Vol] 6.7 g/dL 6.4-8.2 [facility] Sodium [Moles/Vol] 135 mmol/L 136-145 [facility] Laboratory - Chemistry and C hemistry - challengeOrdered By: Piedad Han on 08-12-2022 ALP [Catalytic activity/Vol] 114 U/L 45-117 [facility] ALT [Catalytic activity/Vol] 23 U/L 16-61 [facility] CK [Catalytic activity/Vol] 249 U/L 39-308 [facility] CO2 [Moles/Vol] 24.0 mmol/L 21.0-32.0 [facility] Globulin (S) [Mass/Vol] 3.7 g/dL 2.2-4.2 [facility] Magnesium [Mass/Vol] 2.3 mg/dL 1.6-2.6 [facility] Urea nitrogen/Creatinine [Mass ratio] 17.1 mg/mg 10-20 [facility] No Panel InformationOrdered By: Piedad Han on 08-12-2022 Estimated GFR (MDRD) Amer 34 mL/min >60 [facility] Comment on above: GFR Calc Estimated GFR (MDRD) Non-Af Amer 28 mL/min >60 [facility] Comment on above: Non- GFR Calc Serum or plasma albumin priyanka urement (mass/volume)Ordered By: Piedad Han on 08-12-2022 Albumin [Mass/Vol] 3.0 g/dL 3.2-5.0 [facility] Serum or plasma albumin/glob ulin mass ratioOrdered By: Piedad Han on 08-12-2022 Albumin/Globulin [Mass ratio] 0.8 {ratio} 0.9-2.4 [facility] Serum or plasma calcium priyanka urement (mass/volume)Ordered By: Piedad Han on 08-12-2022 Calcium [Mass/Vol] 8.9 mg/dL 8.5-10.1 [facility] Serum or plasma creatinine m easurement (mass/volume)Ordered By: Piedad Han on 08-12-2022 Creatinine [Mass/Vol] 2.45 mg/dL 0.70-1.30 [facility] Comment on above: The validity of the calculated GFR & GFRAA in patients over 70 years has not been determined. Clinical correlation is essential. Serum or plasma ferritin gonzalo surement (mass/volume)Ordered By: Piedad Han on 08-12-2022 Ferritin [Mass/Vol] 148 ng/mL 26-388 [facility] Serum or plasma urea nitroge n measurement (mass/volume)Ordered By: Piedad Han on 08-12-2022 Urea nitrogen [Mass/Vol] 42 mg/dL 7-18 [facility] Thin prep Papanicolaou smear with manual screeningOrdered By: Piedad Han on 08-12-2022 Thin prep Papanicolaou smear with manual screening 22 U/L 15-37 [facility] Thin prep Papanicolaou smear with manual screening 7 5-15 [facility] Basophil percentageOrdered B y: Myrna Barrios on 07-27-2022 Basophil percentage 3.6 mg/dL 2.5-4.9 [facility] Chloride [Moles/Vol] 104 mmol/L 98-107 [facility] Glucose [Mass/Vol] 160 mg/dL 74-106 [facility] Comment on above: Fasting Glucose resu lt greater than or equal to 126 mg/dL suggests DIABETES MELLITUS per A.D.A. criteria. Potassium [Moles/Vol] 4.5 mmol/L 3.5-5.1 [facility] Sodium [Moles/Vol] 136 mmol/L 136-145 [facility] Laboratory - Chemistry and C hemistry - challengeOrdered By: Myrna Barrios on 07-27-2022 CO2 [Moles/Vol] 26.0 mmol/L 21.0-32.0 [facility] Urea nitrogen/Creatinine [Mass ratio] 17.0 mg/mg 10-20 [facility] No Panel InformationOrdered By: Myrna Barrios on 07-27-2022 Estimated GFR (MDRD) Amer 43 mL/min >60 [facility] Comment on above: GFR Calc Estimated GFR (MDRD) Non-Af Amer 36 mL/min >60 [facility] Comment on above: Non- GFR Calc Serum or plasma albumin priyanka urement (mass/volume)Ordered By: Myrna Barrios on 07-27-2022 Albumin [Mass/Vol] 3.1 g/dL 3.2-5.0 [facility] Serum or plasma calcium priyanka urement (mass/volume)Ordered By: Myrna Barrios on 07-27-2022 Calcium [Mass/Vol] 9.0 mg/dL 8.5-10.1 [facility] Serum or plasma creatinine m easurement (mass/volume)Ordered By: Myrna Barrios on 07-27-2022 Creatinine [Mass/Vol] 2.00 mg/dL 0.70-1.30 [facility] Comment on above: The validity of the calculated GFR & GFRAA in patients over 70 years has not been determined. Clinical correlation is essential. Serum or plasma urea nitroge n measurement (mass/volume)Ordered By: Myrna Barrios on 07-27-2022 Urea nitrogen [Mass/Vol] 34 mg/dL 7-18 [facility] Basophil percentageOrdered B y: Dr. Barrios on 06-20-2022 Basophil percentage 3.5 mg/dL 2.5-4.9 [facility] Chloride [Moles/Vol] 103 mmol/L 98-107 [facility] Glucose [Mass/Vol] 175 mg/dL 74-106 [facility] Comment on above: Fasting Glucose resu lt greater than or equal to 126 mg/dL suggests DIABETES MELLITUS per A.D.A. criteria. Potassium [Moles/Vol] 4.5 mmol/L 3.5-5.1 [facility] Sodium [Moles/Vol] 134 mmol/L 136-145 [facility] Laboratory - Chemistry and C hemistry - challengeOrdered By: Dr. Barrios on 06-20-2022 CO2 [Moles/Vol] 28.0 mmol/L 21.0-32.0 [facility] Urea nitrogen/Creatinine [Mass ratio] 16.2 mg/mg 10-20 [facility] No Panel InformationOrdered By: Beena Jay on 06-20-2022 Prostate Specific Antigen Screen 1.53 ng/mL 0.00-4.00 [facility] Comment on above: This test was perfor med using the TPSA assay method for [employer] chemistry system. Values obtained with differentassay methods cannot be used interchangably.When changing PSA assays in the course of monitoring apatient, additional sequential testing should be carriedout to confirm baseline values. No Panel InformationOrdered By: Dr. Barrios on 06-20-2022 Estimated GFR (MDRD) Amer 38 mL/min >60 [facility] Comment on above: GFR Calc Estimated GFR (MDRD) Non-Af Amer 32 mL/min >60 [facility] Comment on above: Non- GFR Calc Serum or plasma albumin priyanka urement (mass/volume)Ordered By: Dr. Barrios on 06-20-2022 Albumin [Mass/Vol] 3.0 g/dL 3.2-5.0 [facility] Serum or plasma calcium priyanka urement (mass/volume)Ordered By: Dr. Barrios on 06-20-2022 Calcium [Mass/Vol] 8.9 mg/dL 8.5-10.1 [facility] Serum or plasma creatinine m easurement (mass/volume)Ordered By: Dr. Barrios on 06-20-2022 Creatinine [Mass/Vol] 2.22 mg/dL 0.70-1.30 [facility] Comment on above: The validity of the calculated GFR & GFRAA in patients over 70 years has not been determined. Clinical correlation is essential. Serum or plasma urea nitroge n measurement (mass/volume)Ordered By: Dr. Barrios on 06-20-2022 Urea nitrogen [Mass/Vol] 36 mg/dL 7-18 [facility] Urine creatinine measurement (mass/volume)Ordered By: Dr. Barrios on 06-20-2022 Creatinine (U) [Mass/Vol] 21.80 mg/dL NO RANGE EST. [facility] Urine protein measurement (m ass/volume)Ordered By: Dr. Barrios on 06-20-2022 Protein (U) [Mass/Vol] 78.0 mg/dL 0.0-11.8 [facility] Urine protein/creatinine mas s ratioOrdered By: Dr. Barrios on 06-20-2022 Protein/Creatinine (U) [Mass ratio] 3578 mg/g CRE 0-200 [facility] Laboratory - Chemistry and C hemistry - challengeOrdered By: Dr. Han on 05-05-2022 Free T4 [Mass/Vol] 0.86 ng/dL 0.76-1.46 [facility] No Panel InformationOrdered By: Dr. Han on 05-05-2022 Thyroid Stimulating Hormone (TSH) 7.47 uIU/mL 0.358-3.74 [facility] Whole blood hemoglobin A1c/t otal hemoglobin ratio (mass fraction)Ordered By: Dr. Han on 05-05-2022 HbA1c (Bld) [Mass fraction] 6.8 % 3.8-5.6 [facility] Comment on above: Normal < 5.7 % Predi abetic 5.7 - 6.4 % Diabetic >or= 6.5 % Please note range changes. Basophil percentageOrdered B y: Dr. Barrios on 03-01-2022 Basophil percentage 3.7 mg/dL 2.5-4.9 [facility] Chloride [Moles/Vol] 106 mmol/L 98-107 [facility] Glucose [Mass/Vol] 124 mg/dL 74-106 [facility] Comment on above: Fasting Glucose resu lt from 100 to 125 mg/dL suggests IMPAIRED HOMEOSTASIS per A.D.A. criteria. Potassium [Moles/Vol] 4.6 mmol/L 3.5-5.1 [facility] Sodium [Moles/Vol] 139 mmol/L 136-145 [facility] WBC (Bld) [#/Vol] 6.7 10*3/uL 4.4-11.0 [facility] Blood erythrocytes count (nu mber/volume)Ordered By: Dr. Barrios on 03-01-2022 RBC (Bld) [#/Vol] 4.17 10*6/uL 4.6-6.2 [facility] Blood hemoglobin measurement (mass/volume)Ordered By: Dr. Barrios on 03-01-2022 Hemoglobin (Bld) [Mass/Vol] 12.8 g/dL 13.0-16.5 [facility] Blood platelet mean volumeOr dered By: Dr. Barrios on 03-01-2022 Platelet mean volume (Bld) [Entitic vol] 9.6 fL 6.2-12.0 [facility] Determination of erythrocyte mean corpuscular volume (MCV)Ordered By: Dr. Barrios on 03-01-2022 MCV (RBC) [Entitic vol] 92.6 fL 80-94 [facility] Hematocrit Auto (Bld) [Volum e fraction]Ordered By: Dr. Barrios on 03-01-2022 Hematocrit (Bld) [Volume fraction] 38.6 % 40-54 [facility] Laboratory - Chemistry and C hemistry - challengeOrdered By: Dr. Barrios on 03-01-2022 CO2 [Moles/Vol] 25.0 mmol/L 21.0-32.0 [facility] Urea nitrogen/Creatinine [Mass ratio] 16.2 mg/mg 10-20 [facility] Laboratory - Hematology and Cell countsOrdered By: Dr. Barrios on 03-01-2022 Erythrocyte distribution width (RBC) [Entitic vol] 43.3 fL 35.1-43.9 [facility] Erythrocyte distribution width (RBC) [Ratio] 12.8 % 11.6-14.6 [facility] MCH (RBC) [Entitic mass] 30.7 pg 27.0-32.0 [facility] MCHC Auto (RBC) [Mass/Vol]Or dered By: Dr. Barrios on 03-01-2022 MCHC (RBC) [Mass/Vol] 33.2 g/dL 32-36 [facility] No Panel InformationOrdered By: Dr. Barrios on 03-01-2022 Estimated GFR (MDRD) Amer 34 mL/min >60 [facility] Comment on above: GFR Calc Estimated GFR (MDRD) Non-Af Amer 28 mL/min >60 [facility] Comment on above: Non- GFR Calc Parathyroid Hormone (Intact) 74.7 pg/mL 18.4-80.1 [facility] Vitamin D 25-Hydroxy 41.2 ng/mL [facility] Comment on above: Vitamin D 25(OH) Sta tus Range Deficiency <20 ng/mL (50nmol/L) Insufficiency 20 - 30 ng/mL (50 - 75 nmol/L) Sufficiency 30 - 100 ng/mL (75 - 250 nmol/L) Toxicity >100 ng/mL (>250 nmol/L) Platelets bldOrdered By: Dr. Barrios on 03-01-2022 Platelets (Bld) [#/Vol] 212 10*3/uL 150-450 [facility] Serum or plasma albumin priyanka urement (mass/volume)Ordered By: Dr. Barrios on 03-01-2022 Albumin [Mass/Vol] 3.1 g/dL 3.2-5.0 [facility] Serum or plasma calcium priyanka urement (mass/volume)Ordered By: Dr. Barrios on 03-01-2022 Calcium [Mass/Vol] 8.5 mg/dL 8.5-10.1 [facility] Serum or plasma creatinine m easurement (mass/volume)Ordered By: Dr. Barrios on 03-01-2022 Creatinine [Mass/Vol] 2.47 mg/dL 0.70-1.30 [facility] Comment on above: The validity of the calculated GFR & GFRAA in patients over 70 years has not been determined. Clinical correlation is essential. Serum or plasma urea nitroge n measurement (mass/volume)Ordered By: Dr. Barrios on 03-01-2022 Urea nitrogen [Mass/Vol] 40 mg/dL 7-18 [facility] Urine creatinine measurement (mass/volume)Ordered By: Dr. Barrios on 03-01-2022 Creatinine (U) [Mass/Vol] 24.40 mg/dL NO RANGE EST. [facility] Urine protein measurement (m ass/volume)Ordered By: Dr. Barrios on 03-01-2022 Protein (U) [Mass/Vol] 64.1 mg/dL 0.0-11.8 [facility] Urine protein/creatinine mas s ratioOrdered By: Dr. Barrios on 03-01-2022 Protein/Creatinine (U) [Mass ratio] 2627 mg/g CRE 0-200 [facility] Absolute lymphocyte countOrd ered By: Dr. Han on 01-24-2022 Lymphocytes Auto (Unsp spec) [#/Vol] 1.17 10*3/uL 0.83-4.51 [facility] Basophil percentageOrdered B y: Dr. Han on 01-24-2022 Basophil percentage 3.8 mg/dL 2.5-4.9 [facility] Basophils/100 WBC (Bld) 0.5 % 0-1 [facility] Bilirubin [Mass/Vol] 0.40 mg/dL 0.20-1.00 [facility] Comment on above: For patients on eltr ombopag therapy, use of Dimension Jarales TBIL is not recommended. Chloride [Moles/Vol] 102 mmol/L 98-107 [facility] Cholesterol [Mass/Vol] 117 mg/dL <200 [facility] Comment on above: <200 mg/dL Desirable 200-240 mg/dL Borderline >240 mg/dL High Risk Eosinophils/100 WBC (Bld) 4.5 % 0-5 [facility] Glucose [Mass/Vol] 89 mg/dL 74-106 [facility] Neutrophils (Bld) [#/Vol] 5.6 10*3/uL 2.0-7.7 [facility] Neutrophils/100 WBC (Bld) 71.6 % 47-70 [facility] Potassium [Moles/Vol] 4.4 mmol/L 3.5-5.1 [facility] Protein [Mass/Vol] 6.8 g/dL 6.4-8.2 [facility] Sodium [Moles/Vol] 137 mmol/L 136-145 [facility] Triglyceride [Mass/Vol] 103 mg/dL <199 [facility] Comment on above: The drugs N-Acetylcy steine and Metamizole may falsely depress this assay.Serum Triglycerides Reference Interval Normal <150 mg/dL Borderline high 150 - 199 mg/dL High 200 - 499 mg/dL Very High > or = 500 mg/dL WBC (Bld) [#/Vol] 7.8 10*3/uL 4.4-11.0 [facility] Blood erythrocytes count (nu mber/volume)Ordered By: Dr. Han on 01-24-2022 RBC (Bld) [#/Vol] 4.50 10*6/uL 4.6-6.2 [facility] Blood hemoglobin measurement (mass/volume)Ordered By: Dr. Han on 01-24-2022 Hemoglobin (Bld) [Mass/Vol] 13.7 g/dL 13.0-16.5 [facility] Blood lymphocytes/100 leukoc ytesOrdered By: Dr. Han on 01-24-2022 Lymphocytes/100 WBC (Bld) 14.9 % 19-41 [facility] Blood monocytes/100 leukocyt esOrdered By: Dr. Han on 01-24-2022 Monocytes/100 WBC (Bld) 8.0 % 0-10 [facility] Blood platelet mean volumeOr dered By: Dr. Han on 01-24-2022 Platelet mean volume (Bld) [Entitic vol] 9.1 fL 6.2-12.0 [facility] Determination of erythrocyte mean corpuscular volume (MCV)Ordered By: Dr. Han on 01-24-2022 MCV (RBC) [Entitic vol] 93.6 fL 80-94 [facility] Hematocrit Auto (Bld) [Volum e fraction]Ordered By: Dr. Han on 01-24-2022 Hematocrit (Bld) [Volume fraction] 42.1 % 40-54 [facility] Laboratory - Chemistry and C hemistry - challengeOrdered By: Dr. Han on 01-24-2022 ALP [Catalytic activity/Vol] 121 U/L 45-117 [facility] ALT [Catalytic activity/Vol] 31 U/L 16-61 [facility] CO2 [Moles/Vol] 27.0 mmol/L 21.0-32.0 [facility] Free T4 [Mass/Vol] 0.93 ng/dL 0.76-1.46 [facility] Globulin (S) [Mass/Vol] 3.6 g/dL 2.2-4.2 [facility] Urea nitrogen/Creatinine [Mass ratio] 14.5 mg/mg 10-20 [facility] Laboratory - Hematology and Cell countsOrdered By: Dr. Han on 01-24-2022 Erythrocyte distribution width (RBC) [Entitic vol] 45.1 fL 35.1-43.9 [facility] Erythrocyte distribution width (RBC) [Ratio] 13.2 % 11.6-14.6 [facility] Immature granulocytes/100 WBC (Bld) 0.500 % 0.0-0.9 [facility] Comment on above: IG% - Immature Granu locytes (promyelocytes, myelocytes and metamyelocytes) > 1% indicates that a LEFT SHIFT is Present. MCH (RBC) [Entitic mass] 30.4 pg 27.0-32.0 [facility] Nucleated RBC/100 WBC (Bld) [Ratio] 0 % 0-5 [facility] MCHC Auto (RBC) [Mass/Vol]Or dered By: Dr. Han on 01-24-2022 MCHC (RBC) [Mass/Vol] 32.5 g/dL 32-36 [facility] No Panel InformationOrdered By: Dr. Han on 01-24-2022 Estimated GFR (MDRD) Amer 40 mL/min >60 [facility] Comment on above: GFR Calc Estimated GFR (MDRD) Non-Af Amer 33 mL/min >60 [facility] Comment on above: Non- GFR Calc Thyroid Stimulating Hormone (TSH) 3.90 uIU/mL 0.358-3.74 [facility] Urine Microalbumin/Creatinine Ratio 2435.7 mg/g CRE <30 [facility] Vitamin D 25-Hydroxy 37.2 ng/mL [facility] Comment on above: Vitamin D 25(OH) Sta tus Range Deficiency <20 ng/mL (50nmol/L) Insufficiency 20 - 30 ng/mL (50 - 75 nmol/L) Sufficiency 30 - 100 ng/mL (75 - 250 nmol/L) Toxicity >100 ng/mL (>250 nmol/L) Platelets bldOrdered By: Dr. Han on 01-24-2022 Platelets (Bld) [#/Vol] 221 10*3/uL 150-450 [facility] Serum or plasma albumin priyanka urement (mass/volume)Ordered By: Dr. Han on 01-24-2022 Albumin [Mass/Vol] 3.2 g/dL 3.2-5.0 [facility] Serum or plasma albumin/glob ulin mass ratioOrdered By: Dr. Han on 01-24-2022 Albumin/Globulin [Mass ratio] 0.9 {ratio} 0.9-2.4 [facility] Serum or plasma calcium priyanka urement (mass/volume)Ordered By: Dr. Han on 01-24-2022 Calcium [Mass/Vol] 8.9 mg/dL 8.5-10.1 [facility] Serum or plasma cholesterol in HDL measurement (mass/volume)Ordered By: Dr. Han on 01-24-2022 Cholesterol in HDL [Mass/Vol] 51 mg/dL >40 [facility] Comment on above: The drugs N-Acetylcy steine and Metamizole may falsely depress this assay. Reference Range HDL <40 mg/dL Low HDL Cholesterol HDL >or= 60 mg/dL High HDL Cholesterol Serum or plasma cholesterol in VLDL measurement (mass/volume)Ordered By: Dr. Han on 01-24-2022 Cholesterol in VLDL [Mass/Vol] 21 mg/dL 5-40 [facility] Serum or plasma creatinine m easurement (mass/volume)Ordered By: Dr. Han on 01-24-2022 Creatinine [Mass/Vol] 2.14 mg/dL 0.70-1.30 [facility] Comment on above: The validity of the calculated GFR & GFRAA in patients over 70 years has not been determined. Clinical correlation is essential. Serum or plasma low density lipoprotein (LDL) cholesterol measurement (mass/volume)Ordered By: Dr. Han on 01-24-2022 Cholesterol in LDL [Mass/Vol] 45 mg/dL 0-130 [facility] Serum or plasma urea nitroge n measurement (mass/volume)Ordered By: Dr. Han on 01-24-2022 Urea nitrogen [Mass/Vol] 31 mg/dL 7-18 [facility] Thin prep Papanicolaou smear with manual screeningOrdered By: Dr. Han on 01-24-2022 Thin prep Papanicolaou smear with manual screening 22 U/L 15-37 [facility] Thin prep Papanicolaou smear with manual screening 8 5-15 [facility] Thin prep Papanicolaou smear with manual screening 1420.0 mg/L NO RANGE EST. [facility] Urine creatinine measurement (mass/volume)Ordered By: Dr. Han on 01-24-2022 Creatinine (U) [Mass/Vol] 58.30 mg/dL NO RANGE EST. [facility] Urine protein measurement (m ass/volume)Ordered By: Dr. Han on 01-24-2022 Protein (U) [Mass/Vol] 164.7 mg/dL 0.0-11.8 [facility] Urine protein/creatinine mas s ratioOrdered By: Dr. aHn on 01-24-2022 Protein/Creatinine (U) [Mass ratio] 2825 mg/g CRE 0-200 [facility] Whole blood hemoglobin A1c/t otal hemoglobin ratio (mass fraction)Ordered By: Dr. Han on 01-24-2022 HbA1c (Bld) [Mass fraction] 6.7 % 3.8-5.6 [facility] Comment on above: Normal < 5.7 % Predi abetic 5.7 - 6.4 % Diabetic >or= 6.5 % Please note range changes. Basophil percentageOrdered B y: Dr. Barrios on 12-23-2021 Basophil percentage 3.4 mg/dL 2.5-4.9 [facility] Chloride [Moles/Vol] 105 mmol/L 98-107 [facility] Glucose [Mass/Vol] 93 mg/dL 74-106 [facility] Potassium [Moles/Vol] 4.3 mmol/L 3.5-5.1 [facility] Sodium [Moles/Vol] 141 mmol/L 136-145 [facility] Laboratory - Chemistry and C hemistry - challengeOrdered By: Dr. Barrios on 12-23-2021 CO2 [Moles/Vol] 29.0 mmol/L 21.0-32.0 [facility] Urea nitrogen/Creatinine [Mass ratio] 14.2 mg/mg 10- [facility] No Panel InformationOrdered By: Dr. Barrios on 12-23-2021 Estimated GFR (MDRD) Amer 35 mL/min >60 [facility] Comment on above: GFR Calc Estimated GFR (MDRD) Non-Af Amer 29 mL/min >60 [facility] Comment on above: Non- GFR Calc Serum or plasma albumin priyanka urement (mass/volume)Ordered By: Dr. Barrios on 12-23-2021 Albumin [Mass/Vol] 3.2 g/dL 3.2-5.0 [facility] Serum or plasma calcium priyanka urement (mass/volume)Ordered By: Dr. Barrios on 12-23-2021 Calcium [Mass/Vol] 9.1 mg/dL 8.5-10.1 [facility] Serum or plasma creatinine m easurement (mass/volume)Ordered By: Dr. Barrios on 12-23-2021 Creatinine [Mass/Vol] 2.39 mg/dL 0.70-1.30 [facility] Comment on above: The validity of the calculated GFR & GFRAA in patients over 70 years has not been determined. Clinical correlation is essential. Serum or plasma urea nitroge n measurement (mass/volume)Ordered By: Dr. Barrios on 12-23-2021 Urea nitrogen [Mass/Vol] 34 mg/dL 7-18 [facility] 24 hour urine protein measur ement (mass/time)Ordered By: Dr. Barrios on 11-22-2021 Protein (24H U) [Mass/Time] 2988.4 mg/24HR 0-151 [facility] 24 hour urine protein measur ement (mass/volume)Ordered By: Dr. Barrios on 11-22-2021 Protein (24H U) [Mass/Vol] 101.3 mg/dL 0.0-11.8 [facility] 24 hour urine specimen volum e measurementOrdered By: Dr. Barrios on 11-22-2021 Specimen volume (24H U) 2.95 L [facility] Basophil percentageOrdered B y: Dr. Barrios on 11-22-2021 Basophil percentage 3.3 mg/dL 2.5-4.9 [facility] Chloride [Moles/Vol] 104 mmol/L 98-107 [facility] Glucose [Mass/Vol] 81 mg/dL 74-106 [facility] Potassium [Moles/Vol] 4.4 mmol/L 3.5-5.1 [facility] Sodium [Moles/Vol] 140 mmol/L 136-145 [facility] Creatinine clearanceOrdered By: Dr. Barrios on 11-22-2021 Creatinine renal clearance Unsp time (U+S/P) [Vol/Time] 32 ml/min 100-200 [facility] Laboratory - Chemistry and C hemistry - challengeOrdered By: Dr. Barrios on 11-22-2021 CO2 [Moles/Vol] 28.0 mmol/L 21.0-32.0 [facility] Urea nitrogen/Creatinine [Mass ratio] 13.5 mg/mg 10- [facility] Laboratory - Specimen inform ationOrdered By: Dr. Barrios on 11-22-2021 Collection duration (U) 24.0 HOURS 24.0-24.0 [facility] No Panel InformationOrdered By: Dr. Barrios on 11-22-2021 Estimated GFR (MDRD) Amer 37 mL/min >60 [facility] Comment on above: GFR Calc Estimated GFR (MDRD) Non-Af Amer 30 mL/min >60 [facility] Comment on above: Non- GFR Calc Serum or plasma albumin priyanka urement (mass/volume)Ordered By: Dr. Barrios on 11-22-2021 Albumin [Mass/Vol] 3.1 g/dL 3.2-5.0 [facility] Serum or plasma calcium priyanka urement (mass/volume)Ordered By: Dr. Barrios on 11-22-2021 Calcium [Mass/Vol] 8.9 mg/dL 8.5-10.1 [facility] Serum or plasma creatinine m easurement (mass/volume)Ordered By: Dr. Barrios on 11-22-2021 Creatinine [Mass/Vol] 2.30 mg/dL 0.70-1.30 [facility] Comment on above: The validity of the calculated GFR & GFRAA in patients over 70 years has not been determined. Clinical correlation is essential. Serum or plasma urea nitroge n measurement (mass/volume)Ordered By: Dr. Barrios on 11-22-2021 Urea nitrogen [Mass/Vol] 31 mg/dL - [facility] Urine creatinine measurement (mass/volume)Ordered By: Dr. Barrios on 11-22-2021 Creatinine (U) [Mass/Vol] 35.5 mg/dL NO RANGE EST. [facility] Absolute lymphocyte counton 10-26-2021 Lymphocytes Auto (Unsp spec) [#/Vol] 1.11 10*3/uL 0.83-4.51 [facility] Work Phone: Basophil percentageon 2021 Basophils/100 WBC (Bld) 0.7 % 0-1 [facility] Work Phone: [phone] Bilirubin [Mass/Vol] 0.40 mg/dL 0.20-1.00 [facility] Work Phone: [phone] Comment on above: For patients on eltr ombopag therapy, use of Dimension Jarales TBIL is not recommended. Chloride [Moles/Vol] 103 mmol/L 98-107 [facility] Work Phone: [phone] Cholesterol [Mass/Vol] 111 mg/dL <200 [facility] Work Phone: [phone] Comment on above: <200 mg/dL Desirable 200-240 mg/dL Borderline >240 mg/dL High Risk Eosinophils/100 WBC (Bld) 4.5 % 0-5 [facility] Work Phone: Glucose [Mass/Vol] 70 mg/dL 74-106 [facility] Work Phone: Neutrophils (Bld) [#/Vol] 5.1 10*3/uL 2.0-7.7 [facility] Work Phone: Neutrophils/100 WBC (Bld) 70.6 % 47-70 [facility] Work Phone: Potassium [Moles/Vol] 4.4 mmol/L 3.5-5.1 [facility] Work Phone: Protein [Mass/Vol] 6.7 g/dL 6.4-8.2 [facility] Work Phone: Sodium [Moles/Vol] 138 mmol/L 136-145 [facility] Work Phone: Triglyceride [Mass/Vol] 72 mg/dL <199 [facility] Work Phone: [phone] Comment on above: The drugs N-Acetylcy steine and Metamizole may falsely depress this assay.Serum Triglycerides Reference Interval Normal <150 mg/dL Borderline high 150 - 199 mg/dL High 200 - 499 mg/dL Very High > or = 500 mg/dL WBC (Bld) [#/Vol] 7.2 10*3/uL 4.4-11.0 [facility] Work Phone: [phone] Blood erythrocytes count (nu mber/volume)on 10-26-2021 RBC (Bld) [#/Vol] 4.51 10*6/uL 4.6-6.2 [facility] Work Phone: [phone] Blood hemoglobin measurement (mass/volume)on 10-26-2021 Hemoglobin (Bld) [Mass/Vol] 14.0 g/dL 13.0-16.5 [facility] Work Phone: Blood lymphocytes/100 leukoc yteson 10-26-2021 Lymphocytes/100 WBC (Bld) 15.5 % 19-41 [facility] Work Phone: Blood monocytes/100 leukocyt eson 10-26-2021 Monocytes/100 WBC (Bld) 8.6 % 0-10 [facility] Work Phone: Blood platelet mean volumeon 10-26-2021 Platelet mean volume (Bld) [Entitic vol] 9.1 fL 6.2-12.0 [facility] Work Phone: Determination of erythrocyte mean corpuscular volume (MCV)on 10-26-2021 MCV (RBC) [Entitic vol] 93.8 fL 80-94 [facility] Work Phone: [phone] Hematocrit Auto (Bld) [Volum e fraction]on 10-26-2021 Hematocrit (Bld) [Volume fraction] 42.3 % 40-54 [facility] Work Phone: [phone] Laboratory - Chemistry and C hemistry - challengeon 10-26-2021 ALP [Catalytic activity/Vol] 114 U/L 45-117 [facility] Work Phone: [phone] ALT [Catalytic activity/Vol] 37 U/L 16-61 [facility] Work Phone: [phone] CO2 [Moles/Vol] 30.0 mmol/L 21.0-32.0 [facility] Work Phone: Free T4 [Mass/Vol] 0.97 ng/dL 0.76-1.46 [facility] Work Phone: Globulin (S) [Mass/Vol] 3.5 g/dL 2.2-4.2 [facility] Work Phone: Urea nitrogen/Creatinine [Mass ratio] 14.8 mg/mg 10-20 [facility] Work Phone: Laboratory - Hematology and Cell countson 10-26-2021 Erythrocyte distribution width (RBC) [Entitic vol] 44.3 fL 35.1-43.9 [facility] Work Phone: Erythrocyte distribution width (RBC) [Ratio] 13.0 % 11.6-14.6 [facility] Work Phone: Immature granulocytes/100 WBC (Bld) 0.100 % 0.0-0.9 [facility] Work Phone: Comment on above: IG% - Immature Granu locytes (promyelocytes, myelocytes and metamyelocytes) > 1% indicates that a LEFT SHIFT is Present. MCH (RBC) [Entitic mass] 31.0 pg 27.0-32.0 [facility] Work Phone: Nucleated RBC/100 WBC (Bld) [Ratio] 0 % 0-5 [facility] Work Phone: MCHC Auto (RBC) [Mass/Vol]on 10-26-2021 MCHC (RBC) [Mass/Vol] 33.1 g/dL 32-36 [facility] Work Phone: No Panel Informationon 10-26 Estimated GFR (MDRD) Amer 38 mL/min >60 [facility] Work Phone: Comment on above: GFR Calc Estimated GFR (MDRD) Non-Af Amer 31 mL/min >60 [facility] Work Phone: Comment on above: Non- GFR Calc Thyroid Stimulating Hormone (TSH) 3.43 uIU/mL 0.358-3.74 [facility] Work Phone: Urine Microalbumin/Creatinine Ratio 3245.7 mg/g CRE <30 [facility] Work Phone: [phone] Platelets bldon 10-26-2021 Platelets (Bld) [#/Vol] 196 10*3/uL 150-450 [facility] Work Phone: Serum or plasma albumin priyanka urement (mass/volume)on 10-26-2021 Albumin [Mass/Vol] 3.2 g/dL 3.2-5.0 [facility] Work Phone: Serum or plasma albumin/glob ulin mass ratioon 10-26-2021 Albumin/Globulin [Mass ratio] 0.9 {ratio} 0.9-2.4 [facility] Work Phone: Serum or plasma calcium priyanka urement (mass/volume)on 10-26-2021 Calcium [Mass/Vol] 9.1 mg/dL 8.5-10.1 [facility] Work Phone: Serum or plasma cholesterol in HDL measurement (mass/volume)on 10-26-2021 Cholesterol in HDL [Mass/Vol] 47 mg/dL >40 [facility] Work Phone: Comment on above: The drugs N-Acetylcy steine and Metamizole may falsely depress this assay. Reference Range HDL <40 mg/dL Low HDL Cholesterol HDL >or= 60 mg/dL High HDL Cholesterol Serum or plasma cholesterol in VLDL measurement (mass/volume)on 10-26-2021 Cholesterol in VLDL [Mass/Vol] 14 mg/dL 5-40 [facility] Work Phone: Serum or plasma creatinine m easurement (mass/volume)on 10-26-2021 Creatinine [Mass/Vol] 2.23 mg/dL 0.70-1.30 [facility] Work Phone: Comment on above: The validity of the calculated GFR & GFRAA in patients over 70 years has not been determined. Clinical correlation is essential. Serum or plasma low density lipoprotein (LDL) cholesterol measurement (mass/volume)on 10-26-2021 Cholesterol in LDL [Mass/Vol] 50 mg/dL 0-130 [facility] Work Phone: Serum or plasma urea nitroge n measurement (mass/volume)on 10-26-2021 Urea nitrogen [Mass/Vol] 33 mg/dL 7-18 [facility] Work Phone: Serum or plasma uric acid me asurement (mass/volume)on 10-26-2021 Urate [Mass/Vol] 3.5 mg/dL 3.5-7.2 [facility] Work Phone: Comment on above: The drugs N-Acetylcy steine and Metamizole may falsely depress this assay. Thin prep Papanicolaou smear with manual screeningon 10-26-2021 Thin prep Papanicolaou smear with manual screening 25 U/L 15-37 [facility] Work Phone: Thin prep Papanicolaou smear with manual screening 5 5-15 [facility] Work Phone: Thin prep Papanicolaou smear with manual screening 568.0 mg/L NO RANGE EST. [facility] Work Phone: Urine creatinine measurement (mass/volume)on 10-26-2021 Creatinine (U) [Mass/Vol] 17.50 mg/dL NO RANGE EST. [facility] Work Phone: Whole blood hemoglobin A1c/t otal hemoglobin ratio (mass fraction)on 10-26-2021 HbA1c (Bld) [Mass fraction] 6.4 % 3.8-5.6 [facility] Work Phone: Comment on above: Normal < 5.7 % Predi abetic 5.7 - 6.4 % Diabetic >or= 6.5 % Please note range changes. Basophil percentageon 2021 Bilirubin [Mass/Vol] 0.30 mg/dL 0.20-1.00 [facility] Work Phone: Comment on above: For patients on eltr ombopag therapy, use of Dimension Jarales TBIL is not recommended. Chloride [Moles/Vol] 107 mmol/L 98-107 [facility] Work Phone: Cholesterol [Mass/Vol] 121 mg/dL <200 [facility] Work Phone: Comment on above: <200 mg/dL Desirable 200-240 mg/dL Borderline >240 mg/dL High Risk Glucose [Mass/Vol] 123 mg/dL 74-106 [facility] Work Phone: Comment on above: Fasting Glucose resu lt from 100 to 125 mg/dL suggests IMPAIRED HOMEOSTASIS per A.D.A. criteria. Potassium [Moles/Vol] 4.5 mmol/L 3.5-5.1 [facility] Work Phone: Protein [Mass/Vol] 6.4 g/dL 6.4-8.2 [facility] Work Phone: Sodium [Moles/Vol] 139 mmol/L 136-145 [facility] Work Phone: Triglyceride [Mass/Vol] 132 mg/dL <199 [facility] Work Phone: Comment on above: The drugs N-Acetylcy steine and Metamizole may falsely depress this assay.Serum Triglycerides Reference Interval Normal <150 mg/dL Borderline high 150 - 199 mg/dL High 200 - 499 mg/dL Very High > or = 500 mg/dL Laboratory - Chemistry and C hemistry - challengeon 07-22-2021 ALP [Catalytic activity/Vol] 98 U/L 45-117 [facility] Work Phone: ALT [Catalytic activity/Vol] 28 U/L 16-61 [facility] Work Phone: CO2 [Moles/Vol] 29.0 mmol/L 21.0-32.0 [facility] Work Phone: Globulin (S) [Mass/Vol] 3.4 g/dL 2.2-4.2 [facility] Work Phone: Urea nitrogen/Creatinine [Mass ratio] 18.1 mg/mg 10-20 [facility] Work Phone: No Panel Informationon 07-22 Estimated GFR (MDRD) Amer 43 mL/min >60 [facility] Work Phone: Comment on above: GFR Calc Estimated GFR (MDRD) Non-Af Amer 36 mL/min >60 [facility] Work Phone: Comment on above: Non- GFR Calc Thyroid Stimulating Hormone (TSH) 1.44 uIU/mL 0.358-3.74 [facility] Work Phone: Serum or plasma albumin priyanka urement (mass/volume)on 07-22-2021 Albumin [Mass/Vol] 3.0 g/dL 3.2-5.0 [facility] Work Phone: Serum or plasma albumin/glob ulin mass ratioon 07-22-2021 Albumin/Globulin [Mass ratio] 0.9 {ratio} 0.9-2.4 [facility] Work Phone: Serum or plasma calcium priyanka urement (mass/volume)on 07-22-2021 Calcium [Mass/Vol] 8.4 mg/dL 8.5-10.1 [facility] Work Phone: Serum or plasma cholesterol in HDL measurement (mass/volume)on 07-22-2021 Cholesterol in HDL [Mass/Vol] 47 mg/dL >40 [facility] Work Phone: Comment on above: The drugs N-Acetylcy steine and Metamizole may falsely depress this assay. Reference Range HDL <40 mg/dL Low HDL Cholesterol HDL >or= 60 mg/dL High HDL Cholesterol Serum or plasma cholesterol in VLDL measurement (mass/volume)on 07-22-2021 Cholesterol in VLDL [Mass/Vol] 26 mg/dL 5-40 [facility] Work Phone: Serum or plasma creatinine m easurement (mass/volume)on 07-22-2021 Creatinine [Mass/Vol] 1.99 mg/dL 0.70-1.30 [facility] Work Phone: Comment on above: The validity of the calculated GFR & GFRAA in patients over 70 years has not been determined. Clinical correlation is essential. Serum or plasma low density lipoprotein (LDL) cholesterol measurement (mass/volume)on 07-22-2021 Cholesterol in LDL [Mass/Vol] 48 mg/dL 0-130 [facility] Work Phone: Serum or plasma urea nitroge n measurement (mass/volume)on 07-22-2021 Urea nitrogen [Mass/Vol] 36 mg/dL 7-18 [facility] Work Phone: Thin prep Papanicolaou smear with manual screeningon 07-22-2021 Thin prep Papanicolaou smear with manual screening 23 U/L 15-37 [facility] Work Phone: Thin prep Papanicolaou smear with manual screening 3 5-15 [facility] Work Phone: Whole blood hemoglobin A1c/t otal hemoglobin ratio (mass fraction)on 07-22-2021 HbA1c (Bld) [Mass fraction] 6.7 % 3.8-5.6 [facility] Work Phone: Comment on above: Normal < 5.7 % Predi abetic 5.7 - 6.4 % Diabetic >or= 6.5 % Please note range changes. Absolute lymphocyte counton 04-22-2021 Lymphocytes Auto (Unsp spec) [#/Vol] 1.08 10*3/uL 0.83-4.51 [facility] Work Phone: Basophil percentageon 2021 Basophils/100 WBC (Bld) 0.8 % 0-1 [facility] Work Phone: Bilirubin [Mass/Vol] 0.30 mg/dL 0.20-1.00 [facility] Work Phone: Comment on above: For patients on eltr ombopag therapy, use of Dimension Jarales TBIL is not recommended. Chloride [Moles/Vol] 106 mmol/L 98-107 [facility] Work Phone: Cholesterol [Mass/Vol] 122 mg/dL <200 [facility] Work Phone: Comment on above: <200 mg/dL Desirable 200-240 mg/dL Borderline >240 mg/dL High Risk Eosinophils/100 WBC (Bld) 3.3 % 0-5 [facility] Work Phone: Glucose [Mass/Vol] 126 mg/dL 74-106 [facility] Work Phone: Comment on above: Fasting Glucose resu lt greater than or equal to 126 mg/dL suggests DIABETES MELLITUS per A.D.A. criteria. Neutrophils (Bld) [#/Vol] 4.5 10*3/uL 2.0-7.7 [facility] Work Phone: [phone] Neutrophils/100 WBC (Bld) 69.6 % 47-70 [facility] Work Phone: [phone] Potassium [Moles/Vol] 4.9 mmol/L 3.5-5.1 [facility] Work Phone: [phone] Protein [Mass/Vol] 6.4 g/dL 6.4-8.2 [facility] Work Phone: [phone] Sodium [Moles/Vol] 137 mmol/L 136-145 [facility] Work Phone: Triglyceride [Mass/Vol] 115 mg/dL [facility] Work Phone: Comment on above: The drugs N-Acetylcy steine and Metamizole may falsely depress this assay.Serum Triglycerides Reference Interval Normal <150 mg/dL Borderline high 150 - 199 mg/dL High 200 - 499 mg/dL Very High > or = 500 mg/dL WBC (Bld) [#/Vol] 6.4 10*3/uL 4.4-11.0 [facility] Work Phone: Blood erythrocytes count (nu mber/volume)on 04-22-2021 RBC (Bld) [#/Vol] 4.15 10*6/uL 4.6-6.2 [facility] Work Phone: Blood hemoglobin measurement (mass/volume)on 04-22-2021 Hemoglobin (Bld) [Mass/Vol] 12.7 g/dL 13.0-16.5 [facility] Work Phone: Blood lymphocytes/100 leukoc yteson 04-22-2021 Lymphocytes/100 WBC (Bld) 16.9 % 19-41 [facility] Work Phone: Blood monocytes/100 leukocyt eson 04-22-2021 Monocytes/100 WBC (Bld) 9.1 % 0-10 [facility] Work Phone: Blood platelet mean volumeon 04-22-2021 Platelet mean volume (Bld) [Entitic vol] 8.9 fL 6.2-12.0 [facility] Work Phone: Determination of erythrocyte mean corpuscular volume (MCV)on 04-22-2021 MCV (RBC) [Entitic vol] 90.6 fL 80-94 [facility] Work Phone: Hematocrit Auto (Bld) [Volum e fraction]on 04-22-2021 Hematocrit (Bld) [Volume fraction] 37.6 % 40-54 [facility] Work Phone: [phone] Laboratory - Chemistry and C hemistry - challengeon 04-22-2021 ALP [Catalytic activity/Vol] 114 U/L 45-117 [facility] Work Phone: [phone] ALT [Catalytic activity/Vol] 29 U/L 16-61 [facility] Work Phone: [phone] CO2 [Moles/Vol] 28.0 mmol/L 21.0-32.0 [facility] Work Phone: [phone] Free T4 [Mass/Vol] 0.98 ng/dL 0.76-1.46 [facility] Work Phone: Globulin (S) [Mass/Vol] 3.3 g/dL 2.2-4.2 [facility] Work Phone: [phone] Urea nitrogen/Creatinine [Mass ratio] 14.2 mg/mg 10-20 [facility] Work Phone: [phone] Laboratory - Hematology and Cell countson 04-22-2021 Erythrocyte distribution width (RBC) [Entitic vol] 42.7 fL 35.1-43.9 [facility] Work Phone: Erythrocyte distribution width (RBC) [Ratio] 13.2 % 11.6-14.6 [facility] Work Phone: Immature granulocytes/100 WBC (Bld) 0.300 % 0.0-0.9 [facility] Work Phone: Comment on above: IG% - Immature Granu locytes (promyelocytes, myelocytes and metamyelocytes) > 1% indicates that a LEFT SHIFT is Present. MCH (RBC) [Entitic mass] 30.6 pg 27.0-32.0 [facility] Work Phone: Nucleated RBC/100 WBC (Bld) [Ratio] 0 % 0-5 [facility] Work Phone: MCHC Auto (RBC) [Mass/Vol]on 04-22-2021 MCHC (RBC) [Mass/Vol] 33.8 g/dL 32-36 [facility] Work Phone: No Panel Informationon 04-22 Estimated GFR (MDRD) Amer 39 mL/min >60 [facility] Work Phone: Comment on above: GFR Calc Estimated GFR (MDRD) Non-Af Amer 32 mL/min >60 [facility] Work Phone: Comment on above: Non- GFR Calc Thyroid Stimulating Hormone (TSH) 4.84 uIU/mL 0.358-3.74 [facility] Work Phone: Vitamin D 25-Hydroxy 31.6 ng/mL [facility] Work Phone: Comment on above: Vitamin D 25(OH) Sta tus Range Deficiency <20 ng/mL (50nmol/L) Insufficiency 20 - 30 ng/mL (50 - 75 nmol/L) Sufficiency 30 - 100 ng/mL (75 - 250 nmol/L) Toxicity >100 ng/mL (>250 nmol/L) Platelets bldon 04-22-2021 Platelets (Bld) [#/Vol] 193 10*3/uL 150-450 [facility] Work Phone: Serum or plasma albumin priyanka urement (mass/volume)on 04-22-2021 Albumin [Mass/Vol] 3.1 g/dL 3.2-5.0 [facility] Work Phone: Serum or plasma albumin/glob ulin mass ratioon 04-22-2021 Albumin/Globulin [Mass ratio] 0.9 {ratio} 0.9-2.4 [facility] Work Phone: Serum or plasma calcium priyanka urement (mass/volume)on 04-22-2021 Calcium [Mass/Vol] 9.0 mg/dL 8.5-10.1 [facility] Work Phone: Serum or plasma cholesterol in HDL measurement (mass/volume)on 04-22-2021 Cholesterol in HDL [Mass/Vol] 39 mg/dL [facility] Work Phone: Comment on above: The drugs N-Acetylcy steine and Metamizole may falsely depress this assay. Reference Range HDL <40 mg/dL Low HDL Cholesterol HDL >or= 60 mg/dL High HDL Cholesterol Serum or plasma cholesterol in VLDL measurement (mass/volume)on 04-22-2021 Cholesterol in VLDL [Mass/Vol] 23 mg/dL 5-40 [facility] Work Phone: Serum or plasma creatinine m easurement (mass/volume)on 04-22-2021 Creatinine [Mass/Vol] 2.19 mg/dL 0.70-1.30 [facility] Work Phone: Comment on above: The validity of the calculated GFR & GFRAA in patients over 70 years has not been determined. Clinical correlation is essential. Serum or plasma low density lipoprotein (LDL) cholesterol measurement (mass/volume)on 04-22-2021 Cholesterol in LDL [Mass/Vol] 60 mg/dL 0-130 [facility] Work Phone: Serum or plasma urea nitroge n measurement (mass/volume)on 04-22-2021 Urea nitrogen [Mass/Vol] 31 mg/dL 7-18 [facility] Work Phone: Thin prep Papanicolaou smear with manual screeningon 04-22-2021 Thin prep Papanicolaou smear with manual screening 21 U/L 15-37 [facility] Work Phone: Thin prep Papanicolaou smear with manual screening 3 5-15 [facility] Work Phone: Urine creatinine measurement (mass/volume)on 04-22-2021 Creatinine (U) [Mass/Vol] 47.90 mg/dL NO RANGE EST. [facility] Work Phone: Urine protein measurement (m ass/volume)on 04-22-2021 Protein (U) [Mass/Vol] 124.7 mg/dL 0.0-11.8 [facility] Work Phone: Urine protein/creatinine mas s ratioon 04-22-2021 Protein/Creatinine (U) [Mass ratio] 2603 mg/g CRE 0-200 [facility] Work Phone: Whole blood hemoglobin A1c/t otal hemoglobin ratio (mass fraction)on 04-22-2021 HbA1c (Bld) [Mass fraction] 7.0 % 3.8-5.6 [facility] Work Phone: Comment on above: Normal < 5.7 % Predi abetic 5.7 - 6.4 % Diabetic >or= 6.5 % Please note range changes. Vital Signs Date Time Vital Sign Value Performing Clinician Facility 08-05-2024 08:02-0400 Body height 177.8 cm Elena Jordan MD Work Phone: [facility] 08-05-2024 08:02-0400 Body mass index (BMI) [Ratio] 25.83 kg/m2 Elena Jordan MD Work Phone: [facility] 08-05-2024 08:02-0400 Body weight 81.65 kg Elena Jordan MD Work Phone: [facility] 08-05-2024 08:02-0400 Diastolic blood pressure 60 mm[Hg] Elena Jordan MD Work Phone: [facility] 08-05-2024 08:02-0400 Heart rate 52 /min Elena Jordan MD Work Phone: [facility] 08-05-2024 08:02-0400 Respiratory rate 12 /min Elena Jordan MD Work Phone: [facility] 08-05-2024 08:02-0400 SaO2% (BldA) [Mass fraction] 99 % Elena Jordan MD Work Phone: [facility] 08-05-2024 08:02-0400 Systolic blood pressure 120 mm[Hg] Elena Jordan MD Work Phone: [facility] 07-12-2024 14:56-0400 Body height 175.[address] Piedad Han MD Work Phone: [facility] 07-12-2024 14:56-0400 Body mass index (BMI) [Ratio] 27.8 kg/m2 Dr. Piedad Han MD Work Phone: [facility] 07-12-2024 14:56-0400 Body weight 85.[address] Piedad Han MD Work Phone: [facility] 07-12-2024 14:56-0400 Diastolic blood pressure 63 mm[Hg] Dr. Piedad Han MD Work Phone: [facility] 07-12-2024 14:56-0400 Heart rate 50 /min Dr. Piedad Han MD Work Phone: [facility] 07-12-2024 14:56-0400 Respiratory rate 18 /min Dr. Piedad Han MD Work Phone: [facility] 07-12-2024 14:56-0400 Systolic blood pressure 128 mm[Hg] Dr. Piedad Han MD Work Phone: [facility] 06-21-2024 15:29-0400 Body height 175.[address] Piedad Han MD Work Phone: [facility] 06-21-2024 15:29-0400 Body mass index (BMI) [Ratio] 27 kg/m2 Dr. Piedad Han MD Work Phone: [facility] 06-21-2024 15:29-0400 Body weight [address] Piedad Han MD Work Phone: [facility] 06-21-2024 15:29-0400 Diastolic blood pressure 72 mm[Hg] Dr. Piedad Han MD Work Phone: [phone] [place] [address] 06-21-2024 15:29-0400 Heart rate 48 /min Dr. Pidead Han MD Work Phone: [facility] 06-21-2024 15:29-0400 Respiratory rate 16 /min Dr. Piedad Han MD Work Phone: [phone] [address] 06-21-2024 15:29-0400 Systolic blood pressure 148 mm[Hg] Dr. Piedad Han MD Work Phone: [phone] [address] 06-07-2024 15:22-0400 Body mass index (BMI) [Ratio] 27 kg/m2 Dr. Piedad Han MD Work Phone: 3(862)[phone] [place] [address] 06-07-2024 15:22-0400 Body weight [address] Piedad Han MD Work Phone: [phone])[phone] [place] [address] 06-07-2024 15:22-0400 Diastolic blood pressure 84 mm[Hg] Dr. Piedad Han MD Work Phone: [facility] 06-07-2024 15:22-0400 Heart rate 53 /min Dr. Piedad Han MD Work Phone: [facility] 06-07-2024 15:22-0400 Respiratory rate 18 /min Dr. Piedad Han MD Work Phone: [facility] 06-07-2024 15:22-0400 SaO2% (BldA) [Mass fraction] 98 % Dr. Piedad Han MD Work Phone: [phone] [place] [address] 06-07-2024 15:22-0400 Systolic blood pressure 154 mm[Hg] Dr. Piedad Han MD Work Phone: [facility] 05-29-2024 11:38-0400 Body mass index (BMI) [Ratio] 25.94 kg/m2 Monica Cioce 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 Work Phone: [facility] 05-29-2024 11:38-0400 Body temperature 98.49 [degF] Monica Cioce 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 Work Phone: [facility] 05-29-2024 11:38-0400 Body weight 83.19 kg Monica Cioce 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 Work Phone: [facility] 05-29-2024 11:38-0400 Heart rate 55 /min Monica Cioce 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 Work Phone: [facility] 05-29-2024 11:38-0400 Respiratory rate 14 /min Monica Cioce 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 Work Phone: [facility] 05-29-2024 11:38-0400 SaO2% (BldA) [Mass fraction] 98 % Monica Cioce 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 Work Phone: [facility] 01-03-2024 11:52-0500 Body height 179.1 cm Yessenia Oconnor DO Work Phone: [facility] 01-03-2024 11:52-0500 Body mass index (BMI) [Ratio] 24.95 kg/m2 Yessenia Chipley DO Work Phone: [facility] 01-03-2024 11:52-0500 Body weight 80 kg Yessenia Chipley DO Work Phone: [facility] 01-03-2024 11:52-0500 Diastolic blood pressure 70 mm[Hg] Yessenia Chipley DO Work Phone: [facility] 01-03-2024 11:52-0500 Heart rate 60 /min Yessenia Oconnor DO Work Phone: [facility] 01-03-2024 11:52-0500 SaO2% (BldA) [Mass fraction] 96 % Yessenia Oconnor DO Work Phone: [facility] 01-03-2024 11:52-0500 Systolic blood pressure 126 mm[Hg] Yessenia Oconnor DO Work Phone: [facility] 11-08-2023 09:41-0400 Body height 175.3 cm Monica Cioce 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 Work Phone: [facility] 11-08-2023 09:41-0400 Body mass index (BMI) [Ratio] 26.17 kg/m2 Monica Cioce 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 Work Phone: [facility] 11-08-2023 09:41-0400 Body weight 80.38 kg Monica Cioce 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 Work Phone: [facility] 11-08-2023 09:41-0400 Heart rate 57 /min Monica Cioce 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 Work Phone: [facility] 11-08-2023 09:41-0400 Respiratory rate 20 /min Monica Cioce 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 Work Phone: [facility] 11-08-2023 09:41-0400 SaO2% (BldA) [Mass fraction] 99 % Monica Cioce 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 Work Phone: [facility] 10-24-2023 08:53-0400 Diastolic blood pressure 71 mm[Hg] Caroele Mack MD Work Phone: [facility] 10-24-2023 08:53-0400 Heart rate 56 /min Carolee Mack MD Work Phone: [facility] 10-24-2023 08:53-0400 Respiratory rate 16 /min Carolee Mack MD Work Phone: [facility] 10-24-2023 08:53-0400 SaO2% (BldA) [Mass fraction] 98 % Carolee Mack MD Work Phone: [facility] 10-24-2023 08:53-0400 Systolic blood pressure 133 mm[Hg] Carolee Mack MD Work Phone: [facility] 10-24-2023 07:09-0400 Body mass index (BMI) [Ratio] 27.05 kg/m2 Carolee Mack MD Work Phone: [facility] 10-24-2023 07:09-0400 Body temperature 97.2 [degF] Carolee Mack MD Work Phone: [facility] 10-24-2023 07:09-0400 Body weight 83.1 kg Carolee Mack MD Work Phone: [facility] 08-04-2023 08:30-0400 Body height 175.3 cm Jennifer Smith MD Work Phone: [facility] 08-04-2023 08:30-0400 Body mass index (BMI) [Ratio] 27.05 kg/m2 Jennifer Smith MD Work Phone: [facility] 08-04-2023 08:30-0400 Body temperature 98.01 [degF] Jennifer Smith MD Work Phone: [facility] 08-04-2023 08:30-0400 Body weight 83.1 kg Jennifer Smith MD Work Phone: [facility] 08-04-2023 08:30-0400 Diastolic blood pressure 64 mm[Hg] Jennifer Smith MD Work Phone: [facility] 08-04-2023 08:30-0400 Heart rate 63 /min Jennifer Smith MD Work Phone: [facility] 08-04-2023 08:30-0400 SaO2% (BldA) [Mass fraction] 98 % Jennifer Smith MD Work Phone: [facility] 08-04-2023 08:30-0400 Systolic blood pressure 130 mm[Hg] Jennifer Smith MD Work Phone: [facility] 06-28-2023 09:41-0400 Body height 175.3 cm Yessenia Oconnor DO Work Phone: [facility] 06-28-2023 09:41-0400 Body mass index (BMI) [Ratio] 27.93 kg/m2 Yessenia Oconnor DO Work Phone: [facility] 06-28-2023 09:41-0400 Body weight 85.8 kg Yessenia Oconnor DO Work Phone: [facility] 06-28-2023 09:41-0400 Diastolic blood pressure 72 mm[Hg] Yessenia Oconnor DO Work Phone: [facility] 06-28-2023 09:41-0400 Heart rate 63 /min Yessenia Oconnor DO Work Phone: [facility] 06-28-2023 09:41-0400 SaO2% (BldA) [Mass fraction] 99 % Yessenia Oconnor DO Work Phone: [facility] 06-28-2023 09:41-0400 Systolic blood pressure 126 mm[Hg] Yessenia Oconnor DO Work Phone: [facility] 05-10-2023 10:07-0400 Body height 175.3 cm Monica Cioce 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 Work Phone: [facility] 05-10-2023 10:07-0400 Body temperature 98.1 [degF] Monica Cioce 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 Work Phone: [facility] 05-10-2023 10:07-0400 Body weight 84.37 kg Monica Cioce 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 Work Phone: [facility] 05-10-2023 10:07-0400 Diastolic blood pressure 72 mm[Hg] Monica Cioce 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 Work Phone: [facility] 05-10-2023 10:07-0400 Heart rate 60 /min Monica Cioce 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 Work Phone: [facility] 05-10-2023 10:07-0400 SaO2% (BldA) [Mass fraction] 98 % Monica Cioce 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 Work Phone: [facility] 05-10-2023 10:07-0400 Systolic blood pressure 122 mm[Hg] Monica Hoyt APRN.CNP Work Phone: [facility] 04-18-2023 09:54-0500 Body height 175.3 cm Sary Gordon MD Work Phone: [facility] 04-18-2023 09:54-0500 Body weight 81.65 kg Sary Gordon MD Work Phone: [facility] 04-18-2023 09:54-0500 Diastolic blood pressure 87 mm[Hg] Sary Gordon MD Work Phone: [facility] 04-18-2023 09:54-0500 Heart rate 89 /min Sary Gordon MD Work Phone: [facility] 04-18-2023 09:54-0500 Respiratory rate 15 /min Sary Gordon MD Work Phone: [facility] 04-18-2023 09:54-0500 SaO2% (BldA) [Mass fraction] 97 % Sary Gordon MD Work Phone: [facility] 04-18-2023 09:54-0500 Systolic blood pressure 133 mm[Hg] Sary Gordon MD Work Phone: [facility] 11-08-2022 08:48-0400 Heart rate 66 /min Dr. Piedad Han Work Phone: [facility] 11-08-2022 08:46-0400 Body temperature 98.2 [degF] Dr. Piedad Han Work Phone: [facility] 11-08-2022 08:46-0400 Diastolic blood pressure 73 mm[Hg] Dr. Piedad Han Work Phone: [facility] 11-08-2022 08:46-0400 Respiratory rate 18 /min Dr. Piedad Han Work Phone: [facility] 11-08-2022 08:46-0400 SaO2% (BldA) [Mass fraction] 98 % Dr. Piedad Han Work Phone: [facility] 11-08-2022 08:46-0400 Systolic blood pressure 141 mm[Hg] Dr. Piedad Han Work Phone: [facility] 11-07-2022 07:46-0400 Body height 175.[address] Piedad Han Work Phone: [facility] 11-07-2022 07:46-0400 Body weight 84.[address] Piedad Han Work Phone: [facility] 11-04-2022 09:25-0400 Body mass index (BMI) [Ratio] 27.4 kg/m2 Dr. Piedad Han Work Phone: [facility] 10-11-2022 10:28-0400 Body height 175.[address] Piedad Han Work Phone: [facility] 10-11-2022 10:28-0400 Body mass index (BMI) [Ratio] 27.4 kg/m2 Dr. Piedad Han Work Phone: [facility] 10-11-2022 10:28-0400 Body weight 84.[address] Piedad Han Work Phone: [facility] 10-11-2022 10:28-0400 Diastolic blood pressure 41 mm[Hg] Dr. Piedad Han Work Phone: [facility] 10-11-2022 10:28-0400 Heart rate 60 /min Dr. Piedad Han Work Phone: [facility] 10-11-2022 10:28-0400 Respiratory rate 16 /min Dr. Piedad Han Work Phone: [facility] 10-11-2022 10:28-0400 Systolic blood pressure 136 mm[Hg] Dr. Piedad Han Work Phone: [facility] Encounters Encounter Date Encounter Type Care Provider Facility Start: 11-18-2024 ambulatory [facility] [facility] Start: 10-23-2024 End: 10-23-[address] Piedad Han MD Work Phone: -[facility] [place] Start: 10-23-2024 End: 10-23-[address] Piedad Han MD -[facility] Work Phone: Start: 10-23-2024 End: 10-23-2024 ambulatory Piedad Han Facility:[facility] Start: 09-26-2024 Non-patient / Non-visit Dr. Adan TRINH -[facility] Start: 09-26-2024 End: 09-26-[address] Piedad Han MD Work Phone: -Cardiovascular Services Start: 09-26-2024 End: 09-26-2024 Patient encounter procedure Roman ORDAZ -Cardiovascular Services Work Phone: Start: 09-26-2024 End: 09-26-2024 ambulatory Roman Pham Facility:[facility] Start: 08-06-2024 End: 08-07-2024 Telephone encounter Elena Jordan MD Work Phone: Cardiology Comment on above: Appointment Start: 08-05-2024 End: 08-05-2024 Patient encounter procedure Elena Jordan MD Work Phone: Cardiology Comment on above: Systolic congestive heart failure, unspecified HF chronicity (HCC) (Primary Dx); Hx of CABG; Primary hypertension; Atrial fibrillation with RVR (HCC); Hypertensive kidney disease with stage 3a chronic kidney disease (HCC); Encounter for adjustment and management of automatic implantable cardiac defibrillator Start: 08-05-2024 End: 08-05-2024 ambulatory ELENA JORDAN Facility:[facility] Start: 07-30-2024 End: 07-30-[address] Piedad Han MD Work Phone: [facility] Work Phone: Start: 07-30-2024 End: 07-30-[address] Piedad Han MD -[facility] [place] Work Phone: Start: 07-30-2024 End: 07-30-2024 ambulatory Piedad Han Facility:[facility] Start: 07-18-2024 End: 07-19-2024 Telephone encounter Monica C Cioce 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 Work Phone: Endocrinology Comment on above: Orders (CGM sensors) Start: 07-17-2024 End: 07-19-2024 ambulatory Monica C Cioce 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 Work Phone: Endocrinology Comment on above: Medical Service Comp any - [employer] Start: 07-12-2024 End: 07-12-2024 Patient encounter procedure Roman ORDAZ -[facility] Work Phone: Start: 07-12-2024 End: 07-12-[address] Piedad Han MD Work Phone: [facility] Work Phone: Start: 07-05-2024 Non-patient / Non-visit Dr. Gilmer Corcoran MD -[facility] Work Phone: Start: 07-05-2024 End: 07-05-[address] Piedad Han MD Work Phone: [facility] Work Phone: Start: 07-05-2024 End: 07-05-2024 Patient encounter procedure Roman ORDAZ -Pulmonary Services/Neurology Work Phone: Start: 07-05-2024 End: 07-05-2024 ambulatory Roman Pham Facility:[facility] Start: 07-01-2024 End: 07-01-2024 Telephone encounter Monica C Cioce 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 Work Phone: Endocrinology Comment on above: Addended OV Notes to DME Start: 07-01-2024 End: 07-01-2024 Patient encounter procedure Roman ORDAZ -[facility] Work Phone: Start: 07-01-2024 End: 07-01-[address] Piedad Han MD Work Phone: [facility] Work Phone: Start: 06-21-2024 End: 06-21-2024 Patient encounter procedure Roman ORDAZ -[facility] Work Phone: Start: 06-21-2024 End: 06-21-2024 ambulatory Piedad Han [place] Start: 06-07-2024 End: 06-07-[address] Gilmer Corcoran MD -[facility] Work Phone: Start: 06-07-2024 End: 06-07-2024 ambulatory Piedad Han [place] Start: 06-07-2024 End: 06-07-[address] Piedad Han MD -[facility] Work Phone: Start: 06-07-2024 End: 06-07-2024 ambulatory Piedad Han Facility:[facility] Start: 06-04-2024 End: 06-04-[address] Myrna Barrios DO -[facility] Work Phone: Start: 06-04-2024 End: 06-04-2024 ambulatory Piedad Han Facility:[facility] Start: 05-31-2024 End: 05-31-2024 Telephone encounter Monica Hoyt 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 Work Phone: Endocrinology Comment on above: Orders (MSC) Start: 05-29-2024 End: 05-29-2024 ambulatory MONICA C CIOCE Facility:[facility] Start: 05-29-2024 End: 05-29-2024 Patient encounter procedure Monica Salterocben 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 Work Phone: Endocrinology Comment on above: Controlled type 2 di abetes mellitus without complication, unspecified whether prison insulin use (HCC) (Primary Dx) Start: 05-29-2024 End: 05-29-2024 ambulatory MONICA Mustapha ANTONIALBERTO Facility:[facility] Start: 04-09-2024 Non-patient / Non-visit Dr. Yelitza Olmos MD -[facility] Start: 04-09-2024 End: 04-09-[address] Piedad Han MD Work Phone: [facility] Work Phone: Start: 04-09-2024 End: 04-09-[address] Piedad Han MD -Cardiovascular Services Work Phone: Start: 04-09-2024 End: 04-09-2024 ambulatory Piedad Han Facility:[facility] Start: 04-02-2024 End: 04-02-[address] [facility] Work Phone: Start: 04-02-2024 End: 04-02-2024 ambulatory Piedad Han Facility:[facility] Start: 03-07-2024 End: 03-07-2024 Refill Gilmer Chamberlain MD Work Phone: Cardiology Comment on above: Refill Request Start: 02-15-2024 End: 02-15-2024 ambulatory [facility] Start: 02-15-2024 End: 02-15-2024 Patient encounter procedure [facility] Start: 01-03-2024 End: 01-03-2024 ambulatory YESSENIA OCONNOR Facility:[facility] Start: 01-03-2024 End: 01-03-2024 Patient encounter procedure Yessenia Oconnor DO Work Phone: Cardiology Comment on above: 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 (Primary Dx); Ischemic cardiomyopathy; Pure hypercholesterolemia; Essential hypertension Start: 12-27-2023 End: 12-27-2023 Chart abstracting Bernardino Henriquez RN [facility] Start: 12-27-2023 End: 12-27-2023 Telephone encounter Bernardino Henriquez RN Transplant Center Comment on above: Referral - Kidney Tx p (Closed-referred too early) Start: 12-22-2023 End: 12-22-2023 Patient encounter status Kidney Txp Coordinators Work Phone: [facility] Work Phone: Start: 12-22-2023 End: 12-22-2023 Telephone encounter Kidney Txp Coordinators Work Phone: Transplant Center Comment on above: Referral - Kidney Tx p Start: 12-16-2023 End: 12-19-2023 ambulatory Yessenia Oconnor DO Work Phone: Cardiology Comment on above: Farxiga delivery Start: 12-05-2023 End: 12-05-2023 ambulatory Piedad Han Facility:[facility] Start: 11-08-2023 End: 11-08-2023 ambulatory MONICA HOYT Facility:[facility] Start: 11-08-2023 End: 11-08-2023 Patient encounter procedure 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 Hoyt 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 Work Phone: Endocrinology Comment on above: Controlled type 2 di abetes mellitus without complication, unspecified whether prison insulin use (HCC) (Primary Dx) Start: 10-24-2023 End: 10-24-2023 ambulatory JENNIFER SMITH Facility:[facility] Start: 10-24-2023 End: 10-24-2023 Subsequent hospital visit by physician Carolee Mack MD Work Phone: Ambulatory Surgery Comment on above: Special screening fo r malignant neoplasms, colon [Z12.11] Start: 10-17-2023 End: 10-17-2023 ambulatory MONICA HOYT Facility:[facility] Start: 08-04-2023 End: 08-04-2023 Patient encounter procedure Jennifer Smith MD Work Phone: General Surgery Comment on above: Special screening fo r malignant neoplasms, colon (Primary Dx); Hyperparathyroidism (HCC) Start: 08-01-2023 ambulatory Rohini Cody [facility] Start: 08-01-2023 Patient encounter procedure Rohini Cody [facility] Start: 07-03-2023 ambulatory Yessenia Oconnor DO Work Phone: Cardiology Comment on above: blood pressure judahi ne Start: 06-29-2023 ambulatory Yessenia Oconnor DO Work Phone: Cardiology Comment on above: my meds Start: 06-28-2023 End: 06-28-2023 Patient encounter procedure Yessenia Oconnor DO Work Phone: Cardiology Comment on above: 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 (Primary Dx); Pure hypercholesterolemia; Essential hypertension; Cardiomyopathy, ischemic Start: 06-01-2023 End: 06-01-2023 ambulatory [facility] Work Phone: Start: 06-01-2023 End: 06-01-2023 Patient encounter procedure [facility] Work Phone: Start: 05-12-2023 ambulatory Monica Hoyt 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 Work Phone: Endocrinology Comment on above: Vit D and sliding sc jodie Start: 05-12-2023 E-mail encounter fro m caregiver Monica Luciano Cioce 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 Work Phone: [facility] Start: 05-10-2023 End: 05-10-2023 Patient encounter procedure Monica Salterocben 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 Work Phone: Endocrinology Comment on above: Type 2 diabetes jessica itus with stage 3b chronic kidney disease, with long-term current use of insulin (HCC) (Primary Dx) Start: 05-02-2023 ambulatory Latricia Parekh RN [facility] Start: 04-21-2023 End: 04-21-2023 ambulatory [facility] Work Phone: Start: 04-21-2023 End: 04-21-2023 Patient encounter procedure [facility] Work Phone: Start: 04-18-2023 End: 04-18-2023 Patient encounter procedure Sary Gordon MD Work Phone: Cardiology Comment on above: Chronic systolic HF (heart failure) (HCC) (Primary Dx); Cardiomyopathy, ischemic; Coronary artery disease involving [place] heart with angina pectoris, unspecified vessel or lesion type ([facility]); Hypertensive kidney disease with stage 3 chronic kidney disease, unspecified whether stage 3a or 3b CKD ([facility]); Primary hypertension; Hyperlipidemia, unspecified hyperlipidemia type; Coronary angioplasty status; Ischemic cardiomyopathy; Heart disease; Coronary artery disease of [place] artery of [place] heart with stable angina pectoris ([facility]); Stage 3b chronic kidney disease ([facility]); Type 2 diabetes mellitus with stage 3b chronic kidney disease, with long-term current use of insulin ([facility]) Start: 03-31-2023 End: 03-31-2023 ambulatory [facility] Work Phone: Start: 03-31-2023 End: 03-31-2023 Patient encounter procedure [facility] Work Phone: Start: 03-27-2023 Refconchita pate MD Work Phone: Cardiology Comment on above: Refill Request Start: 03-24-2023 End: 03-24-2023 ambulatory [facility] Facility:[facility] Start: 03-24-2023 End: 03-24-2023 Patient encounter procedure [facility] Work Phone: Start: 03-24-2023 End: 03-24-2023 Patient encounter procedure Card Rehab Phase 2 [place] Work Phone: [facility] Cardiac Rehab Comment on above: S/P CABG (coronary a rtery bypass graft) (Primary Dx) Start: 03-22-2023 End: 03-22-2023 ambulatory [facility] Facility:[facility] Start: 03-22-2023 End: 03-22-2023 Patient encounter procedure Card Rehab Phase 2 [place] Work Phone: [facility] Cardiac Rehab Comment on above: S/P CABG (coronary a rtery bypass graft) (Primary Dx) Start: 03-17-2023 End: 03-17-2023 ambulatory [facility] Facility:[facility] Start: 03-17-2023 End: 03-17-2023 Patient encounter procedure [facility] Work Phone: Start: 03-15-2023 Telephone encounter Elizabeth Chamberlain MD Work Phone: Cardiology Comment on above: Follow Up Start: 03-14-2023 End: 03-14-2023 ambulatory [facility] Facility:[facility] Start: 03-09-2023 End: 03-09-2023 ambulatory [facility] Work Phone: Start: 03-09-2023 End: 03-09-2023 Patient encounter procedure [facility] Work Phone: Start: 02-07-2023 End: 02-07-2023 ambulatory [facility] Work Phone: Start: 02-07-2023 End: 02-07-2023 Patient encounter procedure [facility] Work Phone: Start: 02-01-2023 Follow-up encounter Raúl kelsey MD Work Phone: Cardiothoracic Comment on above: Chest pain, unspecif ied type (Primary Dx); Surgery follow-up Start: 01-24-2023 End: 01-26-2023 Patient encounter status Yessenia Oconnor Work Phone: [facility] Start: 01-20-2023 ambulatory Raúl Xiao MD Work Phone: Cardiothoracic Comment on above: FMLA paperwork Start: 01-16-2023 Telephone encounter Nadine meyer RN Work Phone: Case Management Comment on above: Medical Program Specialist - O ther (Care Continuum Advisor Assessment ) Start: 01-12-2023 Telephone encounter Raúl kelsey MD Work Phone: Cardiothoracic Comment on above: Cardiac Preop Checkl ist Start: 01-10-2023 End: 01-10-2023 Patient encounter procedure Raúl Xiao MD Work Phone: Cardiothoracic Comment on above: Cardiomyopathy, isch emic; Coronary artery disease involving [place] heart with angina pectoris, unspecified vessel or lesion type (HCC); Hypertensive kidney disease with stage 3 chronic kidney disease, unspecified whether stage 3a or 3b CKD (HCC); Primary hypertension; Hyperlipidemia, unspecified hyperlipidemia type; Coronary angioplasty status; Ischemic cardiomyopathy; Heart disease Start: 01-09-2023 Telephone encounter Kunal Ruffin MD Work Phone: Cardiology Comment on above: Education Of Patient /family Start: 12-14-2022 ambulatory Raúl Xiao MD Work Phone: Cardiothoracic Comment on above: question on the hear t cath: Start: 11-24-2022 Telephone encounter Raúl kelsey MD Work Phone: Cardiothoracic Comment on above: Referral Information Start: 2022 ambulatory Cielo [place] PA -C Work Phone: General Surgery Comment on above: Mychart Start: 11-20-2022 Admission to [facility] Cielo [place] PA-C Work Phone: General Surgery Comment on above: Bypass surgery Start: 11-20-2022 ambulatory CieloDragonRADf PA -C Work Phone: [facility] Start: 11-15-2022 Telephone encounter Mani hudson MD Work Phone: [facility] Cardiology Comment on above: Appointment; Patient Update Start: 11-07-2022 End: 11-08-2022 Evaluation and management of inpatient Dr. Piedad Han Work Phone: [facility]-Medical Surgical 3 Work Phone: Start: 11-07-2022 End: 11-08-[address] Piedad Han Work Phone: [facility] Work Phone: Start: 11-03-2022 End: 11-03-[address] Piedad Han Work Phone: [facility] Work Phone: Start: 11-03-2022 End: 11-03-[address] Piedad Han Work Phone: [facility] Work Phone: Start: 10-28-2022 End: 10-28-[address] Piedad Han Work Phone: [facility] Work Phone: Start: 10-28-2022 End: 10-28-[address] Piedad Han Work Phone: [facility] Work Phone: Start: 10-11-2022 End: 10-11-[address] Piedad Han Work Phone: [facility] Work Phone: Start: 08-30-2022 End: 08-30-[address] Piedad Han Work Phone: [facility] Work Phone: Start: 08-30-2022 End: 08-30-[address] Piedad Han Work Phone: [facility] Work Phone: Start: 08-24-2022 Non-patient / Non-visit Dr. May Han Work Phone: [facility] Start: 08-24-2022 End: 08-24-[address] Piedad Han Work Phone: [facility] Work Phone: Start: 08-24-2022 End: 08-24-[address] Piedad Han Work Phone: [facility] Work Phone: Start: 08-12-2022 End: 08-12-2022 ambulatory [facility] Work Phone: Start: 08-12-2022 End: 08-12-2022 Patient encounter procedure [facility]-Laboratory,Kami ure Work Phone: Start: 07-27-2022 End: 07-27-2022 Patient encounter procedure [facility] Work Phone: Start: 06-20-2022 End: 06-20-2022 ambulatory [facility] Work Phone: Start: 06-20-2022 End: 06-20-2022 Patient encounter procedure [facility] Start: 05-05-2022 End: 05-05-2022 ambulatory [facility] Work Phone: Start: 05-05-2022 End: 05-05-2022 [facility] Start: 03-01-2022 End: 03-01-2022 ambulatory [facility] Work Phone: Start: 03-01-2022 End: 03-01-2022 Patient encounter procedure [facility] Start: 01-24-2022 End: 01-24-2022 [facility] Start: 12-23-2021 End: 12-23-2021 [facility] Start: 11-22-2021 End: 11-22-2021 ambulatory [facility] Work Phone: Start: 11-22-2021 End: 11-22-2021 Patient encounter procedure [facility] Start: 11-15-2021 End: 11-15-2021 ambulatory [facility] Work Phone: Start: 11-15-2021 End: 11-15-2021 Patient encounter procedure [facility]-Laboratory,Fut ure Start: 10-26-2021 End: 10-26-2021 [facility] Start: 07-22-2021 End: 07-22-2021 Patient encounter procedure [facility] Start: 04-22-2021 End: 04-22-2021 Patient encounter procedure [facility] Procedures Date Procedure Procedure Detail Performing Clinician Start: 10-23-2024 Urnls dip stick/tablet reagent auto microscopy Dr. Piedad Han MD Work Phone: Start: 07-30-2024 Urine microalbumin/creatinine ratio measurement Dr. Piedad Han MD Work Phone: Start: 07-30-2024 Vitamin D, 25-hydroxy measurement Dr. Piedad Han MD Work Phone: Comment on above: Vitamin D StatusDeficiency: <20 ng/mL (5 0nmol/L)Insufficiency: 20-30 ng/mL (50-75 nmol/L)Sufficiency: 30-100 ng/mL (75-250 nmol/L)Toxicity: >100 ng/mL (>250 nmol/L) Start: 07-01-2024 Evaluation of diagnostic study results Dr. Piedad Han MD Work Phone: Start: 06-07-[address] Piedad Han MD Work Phone: Comment on above: Thyroglobulin Antibody measured by Terrance AshbyMethodologyIt should be noted that the presence of thyroglobulinantibodies may not be pathogenic nor diagnostic, especiallyat very low levels. The assay floor steward/stewardess has found thatfour percent of individuals without evidence of thyroiddisease or autoimmunity will have positive TgAb levels upto 4 IU/mL. Start: 06-04-2024 Urnls dip stick/tablet reagent auto microscopy Dr. Piedad Han MD Work Phone: Start: 06-04-[address] Piedad Han MD Work Phone: Start: 06-04-[address] phosphate [address] Piedad aHn MD Work Phone: Start: 04-02-2024 Measurement of renal function Dr. Piedad herbert MD Work Phone: Comment on above: GFR Calc Start: 04-02-[address] Piedad hampton MD Work Phone: Start: 04-02-[address] Piedad Han MD Work Phone: Start: 04-02-2024 Urine microalbumin/creatinine ratio measurement Dr. Piedad Han MD Work Phone: Start: 04-02-2024 Urnls dip stick/tablet reagent auto microscopy Dr. Piedad Han MD Work Phone: Start: 04-02-2024 Vitamin D, 25-hydroxy measurement Dr. Piedad Han MD Work Phone: Comment on above: Vitamin D 25(OH) Status Range Deficiency <20 ng/mL (50nmol/L) Insufficiency 20 - 30 ng/mL (50 - 75 nmol/L) Sufficiency 30 - 100 ng/mL (75 - 250 nmol/L) Toxicity >100 ng/mL (>250 nmol/L) Start: 01-03-2024 Ecg routine ecg w/least 12 lds i&r only [facility] Provider Start: 10-24-2023 Colonoscopy flx dx w/collj spec when pfrmd Jennifer Smith MD Work Phone: Start: 10-24-2023 SURGICAL PATHOLOGY Carolee Mack MD Work Phone: Start: 10-24-2023 Colonoscopy Carolee Mack MD Work Phone: Start: 03-24-2023 End: 03-24-2023 Gluc bld gluc mntr dev cleared fda spec home use [facility] Provider Start: 03-22-2023 Gluc bld gluc mntr dev cleared fda spec home use [facility] Provider Start: 10-28-2022 Plain chest X-ray Dr. Piedad Han Work Phone: Start: 06-23-2020 Colonoscopy Mani Luis MD Work Phone: History of coronary artery bypass grafting S/P CABG (coronary artery bypass graft) [facility] Work Phone: History of coronary artery bypass grafting S/P CABG (coronary artery bypass graft) [facility] Work Phone: History of coronary artery bypass grafting Hx of CABG Elena Jordan MD Work Phone: Plan of Treatment Date Care Activity Detail Author Start: 08-01-2034 Urine microalbumin profile DTaP,Tdap,Td Vaccine (3 - Td or Tdap) [facility] Start: 08-05-2025 Creatinine measurement Serum Creatin ine [facility] Start: 05-29-2025 Creatinine measurement Serum Creatin ine [facility] Start: 05-29-2025 Hepatitis B surface antibody level LDL Cholesterol [facility] Start: 01-02-2025 BP Controlled (<130/80) BP Controlle d (<130/80) [facility] Start: 01-01-2025 End: 01-01-2025 Patient encounter procedure 01/01/2025 8:00 AM EST Office Visit Cardiology [address] [address] Miguelina Kwan, 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 [address] [place] [address] Yearly follow up Cardiology Comment on above: Yearly follow up Start: 12-11-2024 End: 12-11-2024 Patient encounter procedure 12/11/2024 2:00 PM EDT Office Visit [facility] [address] [place], [place] [id number] Elena Jordan MD [address] [place], [place] [id number] 3 month f/u. dlm [facility] Comment on above: 3 month f/u. dlm Start: 11-28-2024 Hemoglobin A1c measurement HbA1C [facility] Start: 11-27-2024 End: 11-27-2024 Patient encounter procedure 11/27/2024 12:45 PM EDT Office Visit Endocrinology [address] [place] [address] Monica Hoyt, 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 [id number] [place] [address] 6 month f/u Endocrinology Comment on above: 6 month f/u Start: 10-23-2024 End: 10-23-2024 Patient encounter procedure 10/23/2024 2:20 PM EDT Office Visit [facility] [address] [place] [address] Raúl Ortiz MD [address] [facility] [address] [place] [id number] Jordan for ICD eval. LVM. dlm [facility] Cardiology [place] Comment on above: Referral per Dr. Camacho carson for ICD eval. LVM. dlm Start: 10-23-2024 Screening for malign ant neoplasm of colon [facility] Start: 10-16-2024 Creatinine measurement Serum Creatin ine [facility] Start: 10-16-2024 Hepatitis B surface antibody level LDL Cholesterol [facility] Start: 09-13-2024 Glaucoma screening Dilated Retinal E xam [facility] Start: 09-04-2024 End: 12-04-2024 Basic metabolic 2000 panel - Serum or Plasma BASIC METABOLIC PANEL Lab Routine Systolic congestive heart failure, unspecified HF chronicity (HCC) Expected: 09/04/2024, Expires: 12/04/2024 [facility] Comment on above: Expected: 09/04/2024 , Expires: 12/04/2024 Start: 09-04-2024 End: 09-04-2024 Patient encounter procedure 09/04/2024 8:20 AM EDT [facility] [facility] [place] [address] [place] [address] Yessenia Uriostegui MD [address] [place] [address] [place] [address] [phone] REF, WHG for ICD evaluation- hlk [facility] Cardiology [place] Comment on above: REF, WHG for ICD prashanth luation- hlk Start: 08-12-2024 End: 11-11-2024 Basic metabolic 2000 panel - Serum or Plasma BASIC METABOLIC PANEL Lab Routine Systolic congestive heart failure, unspecified HF chronicity (HCC) Expected: 08/12/2024, Expires: 11/11/2024 [facility] Work Phone: Comment on above: Expected: 08/12/2024 , Expires: 11/11/2024 Start: 08-05-2024 End: 08-05-2024 Patient encounter procedure Cardiology Comment on above: ALEJANDRO from [facility] Start: 07-01-2024 Evaluation of diagnostic study results 12 Lead EKG performed by [facility] Start: 06-27-2024 BP Controlled (<130/80) BP Controlle d (<130/80) [facility] Start: 06-24-2024 Patient referral [facility] Work Phone: Start: 05-09-2024 BP Controlled (<130/80) BP Controlle d (<130/80) [facility] Start: 05-08-2024 End: 05-08-2024 Patient encounter procedure 05/08/2024 9:15 AM EDT Office Visit Endocrinology [address] [place] [address] Monica Hoyt, 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 [address] [place] [address] 6 MTH F/U Endocrinology Comment on above: 6 MTH F/U Start: 04-15-2024 Hemoglobin A1c measurement HbA1C [facility] Start: 04-13-2024 End: 07-13-2024 Comprehensive metabolic 2000 panel - Serum or Plasma COMPREHENSIVE METABOLIC PANEL Lab Routine Controlled type 2 diabetes mellitus without complication, unspecified whether prison insulin use (HCC) Expected: 04/13/2024, Expires: 07/13/2024 [facility] Work Phone: Comment on above: Expected: 04/13/2024 , Expires: 07/13/2024 Start: 04-13-2024 End: 07-13-2024 Hemoglobin A1c in Blood HEMOGLOBIN A1C Lab Routine Controlled type 2 diabetes mellitus without complication, unspecified whether prison insulin use (HCC) Expected: 04/13/2024, Expires: 07/13/2024 [facility] Comment on above: Expected: 04/13/2024 , Expires: 07/13/2024 Start: 04-13-2024 End: 07-13-2024 LIPID PANEL, NONFASTING LIPID PANEL, NONFASTING Lab Routine Controlled type 2 diabetes mellitus without complication, unspecified 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) Expected: 04/13/2024, Expires: 07/13/2024 [facility] Comment on above: Expected: 04/13/2024 , Expires: 07/13/2024 Start: 04-13-2024 End: 07-13-2024 Microalbumin/Creatinine [Mass Ratio] in Urine ALBUMIN/CREATININE RATIO, URINE Lab Routine Controlled type 2 diabetes mellitus without complication, unspecified whether prison insulin use (HCC) Expected: 04/13/2024, Expires: 07/13/2024 [facility] Comment on above: Expected: 04/13/2024 , Expires: 07/13/2024 Start: 03-14-2024 BP Controlled (<130/80) BP Controlle d (<130/80) [facility] Start: 02-14-2024 Advance Directive Discussion Advance Directive Discussion [facility] Start: 02-03-2024 Complete blood count [facility] Start: 02-03-2024 Creatinine measurement Serum Creatin ine [facility] Start: 02-02-2024 Complete blood count Hemoglobin/[facility] Start: 02-02-2024 Creatinine measurement Serum Creatin ine [facility] Start: 01-11-2024 Serum Creatinine Serum Creatinine Cl [facility] Start: 01-03-2024 End: 01-03-2024 Patient encounter procedure 01/03/2024 11:40 AM EST Office Visit Cardiology [address] [address] Yessenia Oconnor DO [address] [place] [address] 6 month follow up Cardiology Comment on above: 6 month follow up Start: 11-10-2023 Hemoglobin A1c measurement HbA1C [facility] Start: 11-08-2023 End: 11-08-2023 Patient encounter procedure 11/08/2023 9:45 AM EDT Office Visit Endocrinology [address] [place] [address] Monica Hoyt, 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 [address] [place] [address] 6 mo follow up diabetes Endocrinology Comment on above: 6 mo follow up diabe karrie Start: 11-02-2023 End: 11-02-2023 Patient encounter procedure 11/02/2023 8:00 AM EDT Office Visit General Surgery [address] [place], [place] [address] Alisson Mendez APRN.THREAD TRIMMER [address] [place] [address] 10-23 colon follow up General Surgery Comment on above: 10-23 colon follow u p Start: 10-24-2023 End: 10-24-2023 Patient encounter procedure 10/24/2023 11:45 AM EDT Appointment Ambulatory Surgery [address] [place], [place] [id number] Jennifer mSith MD [address] [address] patien tto do 2 day clear fluid prep Ambulatory Surgery Comment on above: patien tto do 2 day clear fluid prep Start: 10-15-2023 End: 01-14-2024 ALBUMIN/CREAT RATIO RND UR ALBUMIN/CREAT RATIO RND UR Lab Routine Type 2 diabetes mellitus with stage 3b chronic kidney disease, with long-term current use of insulin (HCC) Expected: 10/15/2023, Expires: 01/14/2024 [facility] Work Phone: Comment on above: Expected: 10/15/2023 , Expires: 01/14/2024 Start: 10-15-2023 End: 01-14-2024 Comprehensive metabolic 2000 panel - Serum or Plasma COMP METABOLIC PANEL Lab Routine Type 2 diabetes mellitus with stage 3b chronic kidney disease, with long-term current use of insulin (HCC) Expected: 10/15/2023, Expires: 01/14/2024 [facility] Work Phone: Comment on above: Expected: 10/15/2023 , Expires: 01/14/2024 Start: 10-15-2023 Covid-19 Vaccine () Covid-19 Vaccine () [facility] Start: 10-15-2023 Covid-19 Vaccine () Covid-19 Vaccine () [facility] Start: 10-15-2023 End: 01-14-2024 Hemoglobin A1c in Blood HGB A1C Lab Routine Type 2 diabetes mellitus with stage 3b chronic kidney disease, with long-term current use of insulin (HCC) Expected: 10/15/2023, Expires: 01/14/2024 [facility] Work Phone: Comment on above: Expected: 10/15/2023 , Expires: 01/14/2024 Start: 10-15-2023 Influenza vaccination Influenza Vacc ine (#1) [facility] Start: 10-15-2023 End: 01-14-2024 LIPID PANEL, NONFASTING LIPID PANEL, NONFASTING Lab Routine Type 2 diabetes mellitus with stage 3b chronic kidney disease, with long-term current use of insulin (HCC) Expected: 10/15/2023, Expires: 01/14/2024 [facility] Work Phone: Comment on above: Expected: 10/15/2023 , Expires: 01/14/2024 Start: 08-04-2023 End: 08-04-2023 Patient encounter procedure 08/04/2023 8:30 AM EDT Office Visit General Surgery [address] [facility] [place], [place] [id number] Jennifer Smith MD [address] [id number] COLONOSCOPY CONSULT, 06/23/20 colon-poor prep, no specimens, repeat 1 year, 06/28/23 cardiology visit-CABG x4 01/26/23 @[facility], EF 40%, f/u 6 months ra General Surgery Comment on above: COLONOSCOPY CONSULT, 06/23/20 colon-poor prep, no specimens, repeat 1 year, 06/28/23 cardiology visit-CABG x4 01/26/23 @[facility], EF 40%, f/u 6 months ra Start: 04-12-2023 Hemoglobin A1c measurement HbA1C [facility] Start: 04-12-2023 Hemoglobin A1c/Hemoglobin.total in Blood HbA1C [facility] Start: 02-13-2023 Advance Directive Discussion Advance Directive Discussion [facility] Start: 02-13-2023 Behavioral Health Screening Behavioral Health Screening [facility] Start: 02-13-2023 Depression Assessment Depression Ass essment [facility] Start: 02-01-2023 End: 05-03-2023 CBC panel - Blood by Automated count CBC Lab Routine Chest pain, unspecified type Expected: 02/01/2023, Expires: 05/03/2023 [facility] Work Phone: Comment on above: Expected: 02/01/2023 , Expires: 05/03/2023 Start: 02-01-2023 End: 05-03-2023 Comprehensive metabolic 2000 panel - Serum or Plasma COMP METABOLIC PANEL Lab Routine Surgery follow-up Expected: 02/01/2023, Expires: 05/03/2023 [facility] Work Phone: Comment on above: Expected: 02/01/2023 , Expires: 05/03/2023 Start: 01-12-2023 End: 04-13-2023 aPTT in Platelet poor plasma by Coagulation assay ACTIVATED PTT Lab Routine Coronary artery disease 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 with angina pectoris (HCC) Ischemic cardiomyopathy Stage 3 chronic kidney disease, unspecified whether stage 3a or 3b CKD (HCC) Type 2 diabetes mellitus without complication, unspecified 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) Hypothyroidism, unspecified type Primary hypertension Hyperlipidemia, unspecified hyperlipidemia type Chest pain, unspecified type Expected: 01/12/2023 (Approximate), Expires: 04/13/2023 [facility] Work Phone: Comment on above: Expected: 01/12/2023 (Approximate), Expires: 04/13/2023 Start: 01-12-2023 End: 04-13-2023 CBC W Auto Differential panel - Blood CBC + DIFF Lab Routine Coronary artery disease 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 with angina pectoris (HCC) Ischemic cardiomyopathy Stage 3 chronic kidney disease, unspecified whether stage 3a or 3b CKD (HCC) Type 2 diabetes mellitus without complication, unspecified 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) Hypothyroidism, unspecified type Primary hypertension Hyperlipidemia, unspecified hyperlipidemia type Expected: 01/12/2023, Expires: 04/13/2023 [facility] Work Phone: Comment on above: Expected: 01/12/2023 , Expires: 04/13/2023 Start: 01-12-2023 End: 04-13-2023 Comprehensive metabolic 2000 panel - Serum or Plasma COMP METABOLIC PANEL Lab Routine Coronary artery disease 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 with angina pectoris (HCC) Ischemic cardiomyopathy Stage 3 chronic kidney disease, unspecified whether stage 3a or 3b CKD (HCC) Type 2 diabetes mellitus without complication, unspecified 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) Hypothyroidism, unspecified type Primary hypertension Hyperlipidemia, unspecified hyperlipidemia type Expected: 01/12/2023, Expires: 04/13/2023 [facility] Work Phone: Comment on above: Expected: 01/12/2023 , Expires: 04/13/2023 Start: 01-12-2023 End: 04-13-2023 CONFIRM BLOOD TYPE CONFIRM BLOOD TYPE Blood Bank Routine Coronary artery disease 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 with angina pectoris (HCC) Ischemic cardiomyopathy Stage 3 chronic kidney disease, unspecified whether stage 3a or 3b CKD (HCC) Type 2 diabetes mellitus without complication, unspecified whether prison insulin use (HCC) Hypothyroidism, unspecified type Primary hypertension Hyperlipidemia, unspecified hyperlipidemia type Expected: 01/12/2023, Expires: 04/13/2023 [facility] Work Phone: Comment on above: Expected: 01/12/2023 , Expires: 04/13/2023 Start: 01-12-2023 End: 04-13-2023 Lactate dehydrogenase [Enzymatic activity/volume] in Serum or Plasma LD LACTATE DEHYDRO Lab Routine Coronary artery disease 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 with angina pectoris (HCC) Ischemic cardiomyopathy Stage 3 chronic kidney disease, unspecified whether stage 3a or 3b CKD (HCC) Type 2 diabetes mellitus without complication, unspecified 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) Hypothyroidism, unspecified type Primary hypertension Hyperlipidemia, unspecified hyperlipidemia type Expected: 01/12/2023, Expires: 04/13/2023 [facility] Work Phone: Comment on above: Expected: 01/12/2023 , Expires: 04/13/2023 Start: 01-12-2023 End: 04-13-2023 PT panel - Platelet poor plasma by Coagulation assay PROTHROMBIN TIME/PT Lab Routine Coronary artery disease 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 with angina pectoris (HCC) Ischemic cardiomyopathy Stage 3 chronic kidney disease, unspecified whether stage 3a or 3b CKD (HCC) Type 2 diabetes mellitus without complication, unspecified 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) Hypothyroidism, unspecified type Primary hypertension Hyperlipidemia, unspecified hyperlipidemia type Expected: 01/12/2023 (Approximate), Expires: 04/13/2023 [facility] Work Phone: Comment on above: Expected: 01/12/2023 (Approximate), Expires: 04/13/2023 Start: 01-12-2023 End: 04-13-2023 Thyrotropin [Units/volume] in Serum or Plasma TSH BLD Lab Routine Coronary artery disease 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 with angina pectoris (HCC) Ischemic cardiomyopathy Stage 3 chronic kidney disease, unspecified whether stage 3a or 3b CKD (HCC) Type 2 diabetes mellitus without complication, unspecified 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) Hypothyroidism, unspecified type Primary hypertension Hyperlipidemia, unspecified hyperlipidemia type Expected: 01/12/2023 (Approximate), Expires: 04/13/2023 [facility] Work Phone: Comment on above: Expected: 01/12/2023 (Approximate), Expires: 04/13/2023 Start: 01-12-2023 End: 04-13-2023 TYPE AND SCREEN,30 DAY TYPE AND SCREEN,30 DAY Blood Bank Routine Coronary artery disease 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 with angina pectoris (HCC) Ischemic cardiomyopathy Stage 3 chronic kidney disease, unspecified whether stage 3a or 3b CKD (HCC) Type 2 diabetes mellitus without complication, unspecified 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) Hypothyroidism, unspecified type Primary hypertension Hyperlipidemia, unspecified hyperlipidemia type Expected: 01/12/2023, Expires: 04/13/2023 [facility] Work Phone: Comment on above: Expected: 01/12/2023 , Expires: 04/13/2023 Start: 01-12-2023 End: 04-13-2023 URINALYSIS, DIPSTICK ONLY URINALYSIS, DIPSTICK ONLY Lab Routine Coronary artery disease 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 with angina pectoris (HCC) Ischemic cardiomyopathy Stage 3 chronic kidney disease, unspecified whether stage 3a or 3b CKD (HCC) Type 2 diabetes mellitus without complication, unspecified whether prison insulin use (HCC) Hypothyroidism, unspecified type Primary hypertension Hyperlipidemia, unspecified hyperlipidemia type Expected: 01/12/2023, Expires: 04/13/2023 [facility] Work Phone: Comment on above: Expected: 01/12/2023 , Expires: 04/13/2023 Start: 11-08-2022 Patient discharge [facility] Start: 11-07-2022 Admission procedure [facility] Start: 11-07-2022 Following clinical pathway protocol [facility] Start: 11-07-2022 Notification of physician [facility] Start: 11-07-2022 Patient education [facility] Start: 11-07-2022 Provision of activit y privileges [facility] Start: 11-07-2022 Pulse taking [facility] Start: 11-07-2022 Taking patient vital signs [facility] Start: 11-07-2022 Wound care [facility] Start: 11-07-2022 [facility] Start: 11-07-2022 Admission procedure [facility] Start: 10-14-2022 Covid-19 Vaccine ( season) Covid-19 Vaccine ( season) [facility] Start: 10-14-2022 Covid-19 Vaccine ( season) Covid-19 Vaccine ( season) [facility] Start: 10-14-2022 Covid-19 Vaccine ( season) Covid-19 Vaccine ( season) [facility] Start: 10-14-2022 Influenza vaccination Influenza Vacc ine (#1) [facility] Start: 09-14-2022 Urine microalbumin profile DTaP,Tdap,Td Vaccine (2 - Tdap) [facility] Start: 02-13-2022 Advance Directive Discussion Advance Directive Discussion [facility] Start: 02-13-2022 Depression Assessment Depression Ass essment [facility] Start: 01-27-2022 Pneumococcal Vaccine : 65+ (2 - PCV) Pneumococcal Vaccine: 65+ (2 - PCV) [facility] Start: 01-27-2022 Pneumococcal Vaccine : 65+ (2 of 2 - PCV) Pneumococcal Vaccine: 65+ (2 of 2 - PCV) [facility] Start: 06-23-2021 Colonoscopy Colonoscopy [facility] Start: 06-23-2021 Colorectal Cancer Screening Colorectal Cancer Screening [facility] Start: 06-23-2021 Screening for malign ant neoplasm of colon [facility] Start: 01-13-2021 Medicare Annual Wellness Visit Medicare Annual Wellness Visit [facility] Start: 07-09-2020 Covid-19 Vaccine (3 - Moderna series) Covid-19 Vaccine (3 - Moderna series) [facility] Start: 11-22-2019 Pneumococcal Vaccine : 65+ (1 - PCV) Pneumococcal Vaccine: 65+ (1 - PCV) [facility] Start: 2014 Hepatitis B Vaccine (1 of 3 - Risk 3-dose series) Hepatitis B Vaccine (1 of 3 - Risk 3-dose series) [facility] Start: 2014 RSV Vaccine (1 - 1-d ose 60+ series) RSV Vaccine (1 - 1-dose 60+ series) [facility] Start: 2014 RSV Vaccine (1 - Ris k 60-74 years 1-dose series) RSV Vaccine (1 - Risk 60-74 years 1-dose series) [facility] Start: 2009 Prostate Cancer Screening Discussion Prostate Cancer Screening Discussion [facility] Start: 2009 Prostate specific antigen measurement Prostate Cancer Screening Discussion [facility] Start: 2004 Shingrix Vaccine (1 of 2) Shingrix Vaccine (1 of 2) [facility] Start: 11-22-1999 Cologuard (FIT-DNA) Cologuard (FIT-D NA) [facility] Start: 11-22-[address] COLONOGRAPHY [facility] Start: 11-22-1999 Diabetes Screening Diabetes Screenin g [facility] Start: 11-22-1999 Fecal Occult Blood Fecal Occult Bloo d [facility] Start: 11-22-1999 Screening for malign ant neoplasm of colon [facility] Start: 11-22-1999 SIGMOIDOSCOPY SIGMOIDOSCOPY [facility] Start: 1989 Lipid 1996 panel - Serum or Plasma Lipid Screening [facility] Start: 1973 Urine microalbumin profile DTaP,Tdap,Td Vaccine (1 - Tdap) [facility] Start: 1972 Annual PCP Team Looping Inspector emory Disease Visit Annual PCP Team Chronic Disease Visit [facility] Start: 1972 Anxiety Screening Anxiety Screening [facility] Start: 1972 BP Controlled (<130/80) BP Controlle d (<130/80) [facility] Start: 1972 Depression Screening Depression Scre ening [facility] Start: 1972 Hemoglobin/Hematocrit Hemoglobin/Hem atocrit [facility] Start: 1972 Hepatitis B surface antibody level LDL Cholesterol [facility] Start: 1972 Hepatitis C Screening Hepatitis C Sc [facility] Start: 1972 Hepatitis C screening Hepatitis C [facility] Start: 1964 3 comp foot exam completed Diabetic Foot Exam [facility] Start: 1964 Diabetic foot examination Diabetic Foot Exam [facility] Start: 1964 Glaucoma screening Dilated Retinal E xam [facility] Start: 1964 Hepatitis C antibody , confirmatory test Dilated Retinal Exam [facility] Basic metabolic 2008 panel with ionized calcium - Serum or Plasma [facility] End: 02-02-2024 ECG COMPLETE ECG COMPLETE ECG Routine Surgery follow-up 1 Occurrences starting 02/01/2023 until 02/02/2024 [facility] Work Phone: Comment on above: 1 Occurrences starti ng 02/01/2023 until 02/02/2024 ECG COMPLETE ECG COMPLETE ECG 01/03/2024 11:57 AM EST [facility] NM Heart Views W str ess and W radionuclide IV [facility] Patient referral [facility] Work Phone: End: 03-02-2024 Radiologic exam chest 2 views XR CHEST 2V FRONTAL/LAT Radiology Routine Surgery follow-up 1 Occurrences starting 02/01/2023 until 03/02/2024 [facility] Work Phone: Comment on above: 1 Occurrences starti ng 02/01/2023 until 03/02/2024 End: 08-03-2024 Screening colonoscopy COLONOSCOPY SCREENING Endoscopy Routine Special screening for malignant neoplasms, colon 1 Occurrences starting 08/04/2023 until 08/03/2024 [facility] Work Phone: Comment on above: 1 Occurrences starti ng 08/04/2023 until 08/03/2024 [facility] Immunizations Immunization Date Immunization Notes Care Provider Fa [facility] 01-01-2023 influenza virus vacc ine, unspecified formulation Carolee Mack MD Work Phone: [facility] 11-26-2021 influenza virus vacc ine, unspecified formulation Mani Luis MD Work Phone: [facility] 12-06-2016 AFLURIA QUAD 18, PF, 60 mcg/0.5 mL syrg Mani Luis MD Work Phone: [facility] Comment on above: To be injected by ginger Payers Date Payer Category Payer Self-pay [id number] 2022 Private Health Insurance [id number] 2022 Unknown [id number] 2021 Medicare [id number] 2021 Medicare [id number] 2020 Unknown [id number] Unknown [id number] Unknown [id number] 2.16.8 [id number] Unknown [id number] 2.16.8 [id number] Unknown [id number] 2.16.8 [id number] Unknown [id number] 2.16.8 [id number] Unknown [id number] 2.16.8 [id number] Unknown [id number] 2.16.8 [id number] Unknown [id number] 2.16.8 [id number] Unknown [id number] 2.16.8 [id number] Unknown [id number] 2.16.8 [id number] Unknown [id number] 2.16.8 [id number] Unknown [id number] 2.16.8 [id number] Unknown [id number] 2.16.8 [id number] Unknown [id number] 2.16.8 [id number] Unknown [id number] 2.16.8 [id number] Unknown [id number] 2.16.8 [id number] Unknown [id number] 2.16.8 [id number] Unknown [id number] 2.16.8 [id number] Social History Date Type Detail Facility Tobacco smoking stat us NHIS Unknown if ever smoked [facility] Work Phone: Start: 1955 Sex Assigned At Male [facility] Start: 10-11-2022 End: 11-07-2022 Tobacco smoking status NHIS Unknown if ever smoked [facility] Start: 05-25-2020 End: 11-07-2022 Tobacco smoking status NHIS Never smoked tobacco [facility] Work Phone: Start: 05-25-2020 End: 05-10-2023 Tobacco use and exposure Smokeless tobacco non-user [facility] Work Phone: Start: 06-23-2020 End: 08-05-2024 Alcohol intake Lifetime non-drinker (finding) [facility] Start: 06-23-2020 End: 01-09-2023 History of Social function [facility] Start: 06-23-2020 End: 01-09-2023 Alcohol Use Disorder Identification Test - Consumption [AUDIT-C] [facility] How often to you hav e a drink containing alcohol? Never [facility] Average Number of Drinks Not on file [facility] Start: 05-23-2020 Gender identity Identifies as male gender (finding) [facility] Start: 04-22-2024 Sex Male (finding) [facility] Medical Equipment Procedure Code Equipment Code Equipment Origin al Text Equipment Identifier Dates Jasper Thk1.65mm P tfe 4x.5in Cardiovascular Sterile - [id number] Start: 01-26-2023 [id number], [id number], [id number], [id number] Start: 02-02-2023 End: 11-08-2023 Comment on above: Use as instructed to check blood sugar 4 times a day Use to inject insuli n 4 times a day Use as directed to c heck blood sugars 4 times a day Functional Status Date Assessment Result Facility 02-02-2023 Are you deaf, or do you have serious difficulty hearing No 02/02/2023 2:02 PM Felicitas Patel RN [facility] 02-02-2023 Are you blind, or do you have serious difficulty seeing, even when wearing glasses No 02/02/2023 2:02 PM Felicitas Patel RN No [facility] 02-02-2023 Do you have serious difficulty walking or climbing stairs No 02/02/2023 2:02 PM Felicitas Patel RN No [facility] 02-02-2023 Do you have difficul ty dressing or bathing No 02/02/2023 2:02 PM Felicitas Patel RN No [facility] 02-02-2023 Because of a physica l, mental, or emotional condition, do you have difficulty doing errands alone such as visiting a physician's office or shopping No 02/02/2023 2:02 PM Felicitas Patel RN No [facility] 11-08-2022 Functional status Ambulates [facility] Work Phone: Mental Status Date Assessment Result Facility 02-02-2023 Because of a physica l, mental, or emotional condition, do you have serious difficulty concentrating, remembering, or making decisions No 02/02/2023 2:02 PM Felicitas Patel RN No [facility] 11-08-2022 Cognitive function Level Of Cons ciousness Awake;Alert;Appropriate;Fol lows Commands [facility] Work Phone: Clinical Notes 11-07-2022 to 08-06-2024 Telephone Encounter - Yola Berger - 08/06/2024 3:36 PM EDTTelephone Encounter - Yola Berger - 08/06/2024 3:36 PM Elena Morse MD - 08/05/2024 8:36 AM EDT Note Date & Type Note Facility 08-06-2024 Telephone encounter Note LVM. Pt is scheduled w/ Dr. Ortiz on 09/27/24 at 11:20 AM at [facility]. Also scheduled w/ Dr. Jordan on 12/11/24 at 2 PM at [facility]. Yola Berger [facility] 08-06-2024 Miscellaneous Notes LVM. Pt is scheduled w/ Dr. Ortiz on 09/27/24 at 11:20 AM at [facility]. Also scheduled w/ Dr. Jordan on 12/11/24 at 2 PM at [facility]. Yola Berger Pt needs to be scheduled with Dr. Ortiz in EP and also needs a 3 month follow up with Dr. Jordan. Pt is asking if he can do both on the same day in [place]. Will see if [facility] can assist. Stevo Arora MA documented in this encounter [facility] 08-06-2024 Telephone encounter Note Pt needs to be scheduled with Dr. Ortiz in EP and also needs a 3 month follow up with Dr. Jordan. Pt is asking if he can do both on the same day in [place]. Will see if [facility] can assist. Stevo Arora MA [facility] 08-05-2024 Note HNO ID: [id number] Author: ELENA JORDAN MD Service: ? Author Type: Physician Type: Progress Notes Filed: 08/05/2024 08:46 Note Text: Elena Jordan MD Interventional Cardiology [address] [id number] Chief Complaint Patient presents with: New Patient: transfer care from [facility] HISTORY OF PRESENT ILLNESS: Mr. Griffin is a 68-year-old male with a history of severe cardiomyopathy, CAD, and CKD, presenting for evaluation of ICD placement. The patient reports feeling well overall and denies dyspnea, chest pain, dizziness, lightheadedness, or palpitations. He notes mild leg edema, which he attributes to CKD. He experiences transient dyspnea when initiating physical activities, such as climbing stairs, but states that this resolves after a few minutes, allowing him to continue without difficulty. He denies any significant dyspnea during prolonged activities, including yard work. He underwent CABG on 01/26/2023 at [facility], involving SULLIVAN to the LAD, vein grafts to the PDA and first obtuse marginal, and left radial artery to the ramus. He previously had 4 stents placed in 2008 at [facility] following an VT. A recent echocardiogram revealed an LVEF of 25%, and a cardiac catheterization on 11/07/2022 demonstrated severe calcification, leading to the decision for CABG. He has been exercising regularly, using a [employer] for 3 years and walking 5 days a week at 3 mph for 45 minutes. He recently reduced his work hours to part-time to accommodate his exercise regimen, noting fatigue at the end of the day but remains determined to maintain his activity level. He has CKD, with a creatinine level of 2.31 mg/dL and an eGFR of 30 mL/min/1.73 m? as of 05/29/2024. He reports that his thread machine operator, Dr. Barrios, believes dialysis is inevitable but notes that his kidney function has remained stable for the past 2 years, which he attributes to his exercise routine. He denies any history of dialysis. He is currently under the care of Dr. Corcoran, his recooperer, and Dr. Barrios, his thread machine operator, both at [facility]. He is scheduled for a follow-up echocardiogram on 09/04/2024 and sees his thread machine operator every 4 to 6 months, with the next appointment in November. 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 He denies any history of tobacco or alcohol use. He is currently taking amlodipine 10 mg, aspirin, Farxiga, hydralazine 10 mg TID, Imdur 5 mg TID, and Kerendia. Cardiac Risk Factors age (male over 45, female over 55), hyperlipidemia, hypertension, family history of CAD PAST MEDICAL HISTORY Diagnosis Date Anemia, unspecified CAD (coronary artery disease) Cardiomyopathy (HCC) Congestive heart failure (HCC) Diabetes mellitus (HCC) Dyslipidemia Essential hypertension Gout H/O heart artery stent Hypothyroidism Kidney stone S/P CABG x 4 01/26/2023 Sleep apnea STEMI (ST elevation myocardial infarction) (HCC) PAST SURGICAL HISTORY Procedure Laterality Date CABG, VEIN, FOUR 01/26/2023 01/26/2023: CABGx4: SULLIVAN to LAD SVG to RPDA/SVG to OM2 /Left Radial to Ramus @ [facility] COLONOSCOPY FLX DX W/COLLJ SPEC WHEN PFRMD 06/23/2020 PAST SURGICAL HISTORY OF Cardiac stent x 4 FAMILY HISTORY Problem Relation Age of Onset other (passed at age 82) Mother Intersitial Lung Disease Mother Heart Attack Father other (passed at age 53) Father Cancer Paternal Grandfather Diabetes Sister other (valve disease) Sister other (atrial fib) Sister Social History Tobacco Use Smoking status: Never Smokeless tobacco: Never Substance Use Topics Alcohol use: Never Drug use: Never ALLERGIES Allergen Reactions Lisinopril Swelling Medications: Current Outpatient Medications Medication Sig Dispense Refill Blood-Glucose Sensor (FREESTYLE YAZMIN 3 PLUS SENSOR) kathleen CHANGE SENSOR EVERY 15 days. USE FOR CONTINUOUS GLUCOSE MONITORING. MULTIPLE INSULIN INJECTIONS E11.9 6 each 3 Blood-Glucose Meter,Continuous (FREESTYLE YAZMIN 3 READER) [facility] DISPENSE ONE READER KIT. USE FOR CONTINUOUS GLUCOSE MONITORING. MULTIPLE INSULIN INJECTIONS. E11.9 1 each 0 insulin glargine (LANTUS SOLOSTAR U-100 INSULIN) 100 unit/mL (3 mL) Inject 25 units once daily dapagliflozin propanediol (FARXIGA) 10 mg tablet Take 1 tablet by mouth daily with breakfast. 90 tablet 3 KERENDIA 20 mg tablet Take 20 mg by mouth once daily. blood sugar diagnostic (TRUE METRIX GLUCOSE TEST STRIP) test strip Use as instructed to check blood sugar 4 times a day 100 Each 1 insulin aspart U-100 (NOVOLOG FLEXPEN U-100 INSULIN) 100 unit/mL (3 mL) Inject 5 units with meals PLUS SS#1 - pre meal blood sugar only (1 unit for every 50 over 150 PRE MEAL) TDD 20 units metoprolol succinate ER (TOPROL XL) 50 mg 24 hr tablet Take 1 tablet by mouth two times a day. 180 tablet 0 Insulin Union, Disposable, (BD ULTRA-F (more content not included)... [facility] 08-05-2024 History of Presen t illness Narrative Images from the original note were not included. Elena Jordan MD Interventional Cardiology [address] [place], [place] [id number] Chief Complaint Patient presents with: New Patient: transfer care from [facility] HISTORY OF PRESENT ILLNESS: Mr. Griffin is a 68-year-old male with a history of severe cardiomyopathy, CAD, and CKD, presenting for evaluation of ICD placement. The patient reports feeling well overall and denies dyspnea, chest pain, dizziness, lightheadedness, or palpitations. He notes mild leg edema, which he attributes to CKD. He experiences transient dyspnea when initiating physical activities, such as climbing stairs, but states that this resolves after a few minutes, allowing him to continue without difficulty. He denies any significant dyspnea during prolonged activities, including yard work. He underwent CABG on 01/26/2023 at [facility], involving SULLIVAN to the LAD, vein grafts to the PDA and first obtuse marginal, and left radial artery to the ramus. He previously had 4 stents placed in 2008 at [facility] following an VT. A recent echocardiogram revealed an LVEF of 25%, and a cardiac catheterization on 11/07/2022 demonstrated severe calcification, leading to the decision for CABG. He has been exercising regularly, using a [employer] for 3 years and walking 5 days a week at 3 mph for 45 minutes. He recently reduced his work hours to part-time to accommodate his exercise regimen, noting fatigue at the end of the day but remains determined to maintain his activity level. He has CKD, with a creatinine level of 2.31 mg/dL and an eGFR of 30 mL/min/1.73 m as of 05/29/2024. He reports that his thread machine operator, Dr. Barrios, believes dialysis is inevitable but notes that his kidney function has remained stable for the past 2 years, which he attributes to his exercise routine. He denies any history of dialysis. He is currently under the care of Dr. Corcoran, his recooperer, and Dr. Barrios, his thread machine operator, both at [facility]. He is scheduled for a follow-up echocardiogram on 09/04/2024 and sees his thread machine operator every 4 to 6 months, with the next appointment in November. 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 He denies any history of tobacco or alcohol use. He is currently taking amlodipine 10 mg, aspirin, Farxiga, hydralazine 10 mg TID, Imdur 5 mg TID, and Kerendia. Cardiac Risk Factors age (male over 45, female over 55), hyperlipidemia, hypertension, family history of CAD PAST MEDICAL HISTORY Diagnosis Date Anemia, unspecified CAD (coronary artery disease) Cardiomyopathy (HCC) Congestive heart failure (HCC) Diabetes mellitus (HCC) Dyslipidemia Essential hypertension Gout H/O heart artery stent Hypothyroidism Kidney stone S/P CABG x 4 01/26/2023 Sleep apnea STEMI (ST elevation myocardial infarction) (HCC) PAST SURGICAL HISTORY Procedure Laterality Date CABG, VEIN, FOUR 01/26/2023 01/26/2023: CABGx4: SULLIVAN to LAD SVG to RPDA/SVG to OM2 /Left Radial to Ramus @ [facility] COLONOSCOPY FLX DX W/COLLJ SPEC WHEN PFRMD 06/23/2020 PAST SURGICAL HISTORY OF Cardiac stent x 4 FAMILY HISTORY Problem Relation Age of Onset other (passed at age 82) Mother Intersitial Lung Disease Mother Heart Attack Father other (passed at age 53) Father Cancer Paternal Grandfather Diabetes Sister other (valve disease) Sister other (atrial fib) Sister Social History Tobacco Use Smoking status: Never Smokeless tobacco: Never Substance Use Topics Alcohol use: Never Drug use: Never ALLERGIES Allergen Reactions Lisinopril Swelling Medications: Current Outpatient Medications Medication Sig Dispense Refill Blood-Glucose Sensor (FREESTYLE YAZMIN 3 PLUS SENSOR) kathleen CHANGE SENSOR EVERY 15 days. USE FOR CONTINUOUS GLUCOSE MONITORING. MULTIPLE INSULIN INJECTIONS E11.9 6 each 3 Blood-Glucose Meter,Continuous (FREESTYLE YAZMIN 3 READER) [facility] DISPENSE ONE READER KIT. USE FOR CONTINUOUS GLUCOSE MONITORING. MULTIPLE INSULIN INJECTIONS. E11.9 1 each 0 insulin glargine (LANTUS SOLOSTAR U-100 INSULIN) 100 unit/mL (3 mL) Inject 25 units once daily dapagliflozin propanediol (FARXIGA) 10 mg tablet Take 1 tablet by mouth daily with breakfast. 90 tablet 3 KERENDIA 20 mg tablet Take 20 mg by mouth once daily. blood sugar diagnostic (TRUE METRIX GLUCOSE TEST STRIP) test strip Use as instructed to check blood sugar 4 times a day 100 Each 1 insulin aspart U-100 (NOVOLOG FLEXPEN U-100 INSULIN) 100 unit/mL (3 mL) Inject 5 units with meals PLUS SS#1 - pre meal blood sugar only (1 unit for every 50 over 150 PRE MEAL) TDD 20 units metoprolol succinate ER (TOPROL XL) 50 mg 24 hr tablet Take 1 tablet by mouth two times a day. 180 tablet 0 Insulin Union, Disposable, (BD ULTRA-FINE KENN PEN NEEDLE) 32 gauge x 5/32 Use to inject insulin 4 times a day 100 Each 1 Lancets lancets Use as directed to check blood sugars 4 times a day 100 Each 1 levothyroxine (SYNTHROID) 175 mcg tablet Take 150 mcg by mouth daily before breakfast. OTC PRODUCT Stool softner daily rosuvastatin (CRESTOR) 20 mg tablet Take 40 mg by mouth once daily. amLODIPine (NORVASC) 10 mg tablet Take 10 mg by mouth once daily. aspirin, enteric coated (ASPIRIN, ENTERIC COATED) 81 mg EC tablet Take 81 mg by mouth once daily. allopurinol (ZYLOPRIM) 300 mg tablet Take 300 mg by mouth once daily. buPROPion SR (ZYBAN SR; WELLBUTRIN SR) 150 mg 12 hr tablet Take 150 mg by mouth twice daily. 5 sacubitril-valsartan (ENTRESTO) 24-26 mg tablet Take 1 tablet by mouth two times a day. 180 tablet 3 No current facility-administered medications for this visit. Review of Systems Constitutional: Negative for chills, diaphoresis, fever, malaise/fatigue and weight loss. HENT: Negative for congestion, ear discharge, ear pain, hearing loss, nosebleeds, sinus pain, sore throat and tinnitus. Eyes: Negative for blurred vision, double vision, photophobia, pain, discharge and redness. Respiratory: Negative for cough, hemoptysis, sputum production, shortness of breath, wheezing and stridor. Cardiovascular: Negative for chest pain, palpitations, orthopnea, claudication, leg swelling and PND. Gastrointestinal: Negative for abdominal pain, blood in stool, constipation, diarrhea, heartburn, melena, nausea and vomiting. Genitourinary: Negative for dysuria, flank pain, frequency, hematuria and urgency. Musculoskeletal: Negative for back pain, falls, joint pain, myalgias and neck pain. Skin: Negative for itching and rash. Neurological: Negative for dizziness, tingling, tremors, sensory change, speech change, focal weakness, seizures, loss of consciousness, weakness and headaches. Endo/Heme/Allergies: Negative for environmental allergies and polydipsia. Does not bruise/bleed easily. Psychiatric/Behavioral: Negative for depression, hallucinations, memory loss, substance abuse and suicidal ideas. The patient is not nervous/anxious and does not have insomnia. Physical Examination: Vitals:BP 120/60 Pulse 52 Resp 12 Ht 5' 10 (1.78m) Wt 180 lb (81.6kg) SpO2 99% BMI 25.83 kg/(m^2). BP w/Orthostatic Vitals Date and Time Orthostatic BP Orthostatic Pulse BP Pulse BP Position BP Site BP Cuff Size 08/05/24801 -- -- 120/60 52 Sitting Right Arm Large Adult Peak Flow Date and Time PF Resp 08/05/24801 -- 12 Last 2 Encounter Wt Readings: Date: Wt: 08/05/2024 81.6 kg (180 lb) 05/29/2024 83.2 kg (183 lb 6.4 oz) Physical Exam Constitutional: General: He is not in acute distress. Appearance: He is not diaphoretic. HENT: Head: Normocephalic and atraumatic. Right Ear: External ear normal. Left Ear: External ear normal. Nose: Nose normal. Mouth/Throat: Pharynx: Oropharynx is clear. Eyes: General: Right eye: No discharge. Left eye: No discharge. Conjunctiva/sclera: Conjunctivae normal. Pupils: Pupils are equal, round, and reactive to light. Cardiovascular: Rate and Rhythm: Normal rate and regular rhythm. Heart sounds: Normal heart sounds, S1 normal and S2 normal. No murmur heard. No friction rub. No gallop. No S3 or S4 sounds. Pulmonary: Effort: Pulmonary effort is normal. No respiratory distress. Breath sounds: Normal breath sounds. No wheezing or rales. Chest: Chest wall: No tenderness. Abdominal: General: Abdomen is flat. Musculoskeletal: General: Normal range of motion. Cervical back: Normal range of motion and neck supple. Skin: General: Skin is warm and dry. Neurological: Mental Status: He is alert and oriented to person, place, and time. Psychiatric: Mood and Affect: Mood normal. Thought Content: Thought content normal. Pertinent Labs: CBC: Hemoglobin (g/dL) Date Value 02/02/2023 8.5 Hematocrit (%) Date Value 02/02/2023 26.3 WBC (k/uL) Date Value 02/02/2023 8.76 Platelet Count (k/uL) Date Value 02/02/2023 190 BMP: Glucose (mg/dL) Date Value 05/29/2024 90 Potassium (mmol/L) Date Value 05/29/2024 5.1 Sodium (mmol/L) Date Value 05/29/2024 134 Chloride (mmol/L) Date Value 05/29/2024 102 CO2 (mmol/L) Date Value 05/29/2024 25 Creatinine (mg/dL) Date Value 05/29/2024 2.31 BUN (mg/dL) Date Value 05/29/2024 41 Anion Gap (mmol/L) Date Value 05/29/2024 7 Calcium, Total (mg/dL) Date Value 05/29/2024 9.3 INR: Lipid Profile: Total Cholesterol, Nonfasting Date Value Ref Range Status 05/29/2024 130 <200 mg/dL Final Comment: <200 mg/dL, Desirable 200-239 mg/dL, Borderline high >239 mg/dL, High HDL Cholesterol, Nonfasting Date Value Ref Range Status 05/29/2024 39 (L) >39 mg/dL Final Comment: 40-59 mg/dL, Acceptable >59 mg/dL, High: Negative risk factor for coronary heart disease <40 mg/dL, Low: Positive risk factor for coronary heart disease LDL Cholesterol Calculated, Nonfasting Date Value Ref Range Status 05/29/2024 68 <100 mg/dL Final Comment: <100 mg/dL, Optimal 100-129 mg/dL, Near optimal/above optimal 130-159 mg/dL, Borderline high 160-189 mg/dL, High >189 mg/dL, Very high Secondary prevention optimal LDL Cholesterol levels are recommended to be < 70 mg/dL Triglycerides, Nonfasting Date Value Ref Range Status 05/29/2024 117 <150 mg/dL Final Comment: <150 mg/dL, Normal 150-199 mg/dL, Borderline high 200-499 mg/dL, High >499 mg/dL, Very high Hemoglobin A1C: No results found for: HGBA1C TSH: No results found for: TSHREFL Prior Cardiac Testing None Assessment and Plan: 68 years old with Severe LV systolic dysfunction and ischemic cardiomyopathy ASSESSMENT/PLAN: 1. Systolic congestive heart failure, unspecified HF chronicity (HCC) - ICD9: 428.20, 428.0, ICD10: I50.20 (primary diagnosis) - HFrEF <=40 - Continue current medications - BASIC METABOLIC PANEL - BASIC METABOLIC PANEL - BASIC METABOLIC PANEL - CONSULT TO ELECTROPHYSIOLOGY Stop Hydralazine and indur Start Entresto with Close Renal function monitoring Will communicate with [facility]F medical therapy 2. Hx of CABG - ICD9: V45.81, ICD10: Z95.1 Severe cardiomyopathy with ejection fraction by echocardiography of 25% Patient heart failure medication need to be adjusted He fulfills the criteria for defibrillator for primary prevention Will schedule him to see electrophysiology service at [facility] 3. Primary hypertension - ICD9: 401.9, ICD10: I10 - Controlled - Continue current medications - Recommend home blood pressure monitoring, to bring results to next visit - Encouraged sodium restriction, DASH or Mediterranean diet - Recommend regular aerobic exercise 4. Atrial fibrillation with RVR (HCC) - ICD9: 427.31, ICD10: I48.91 Prior history of atrial fibrillation currently in sinus rhythm 5. Hypertensive kidney disease with stage 3a chronic kidney disease (HCC) - ICD9: 403.90, 585.3, ICD10: I12.9, N18.31 - Controlled - Continue current medications - Recommend home blood pressure monitoring, to bring results to next visit - Encouraged sodium restriction, DASH or Mediterranean diet - Recommend regular aerobic exercise - eGFR: 30 Stable - Counseled on avoiding NSAIDs, adequate hydration - Medications reviewed and renally adjusted 6. Encounter for adjustment and management of automatic implantable cardiac defibrillator - ICD9: V53.32, ICD10: Z45.02 Consult EP service for evaluation and management We discussed your cardiomyopathy and heart health: - Your heart is not squeezing effectively, with an ejection fraction of 25%, indicating severe cardiomyopathy. This is why we are considering an implantable cardioverter defibrillator (ICD) to protect against life-threatening arrhythmias. However, we will first try optimizing your medical therapy. - I am starting you on Entresto (24/26 mg, twice daily), a heart failure medication that may improve your heart function. This will replace your current medications, hydralazine and Imdur, which I have discontinued. - Entresto may affect your kidney function, so we will monitor your kidney labs closely: - Labs were drawn today for a baseline. - Repeat labs are scheduled for 1 week and 4 weeks from today. - If your kidney function remains stable and your heart function improves, we may avoid the need for an ICD. If your kidney function worsens, we will stop Entresto and reassess. - You are scheduled for a consultation with Dr. Ortiz at [facility] to discuss the ICD as a precautionary measure. His office will contact you to schedule this appointment. - Continue monitoring your blood pressure and kidney function through [facility] [employer]. Look specifically at your creatinine levels and blood pressure readings. If you notice any significant changes, please contact me. We discussed your kidney health: - Your kidney function is currently stable, with a creatinine level of 2.7 and a GFR of 30. However, your kidneys remain at risk due to your heart condition and medications. - I will communicate with your thread machine operator, Dr. Myrna Barrios, to ensure she is aware of the changes to your medications and our plan to monitor your kidney function closely. - Your next appointment with Dr. Barrios is in November, but if your kidney function changes, she may want to see you sooner. We discussed your current medications: - Continue taking your other medications as prescribed, including Farxiga, Kerendia, and amlodipine. However, I plan to discontinue amlodipine in the future, as it may be contributing to the swelling in your legs. - Do not purchase more than a 1-month supply of Entresto initially, as we need to determine if it will be a long-term medication for you. We discussed your upcoming tests and follow-ups: - You are scheduled for an echocardiogram on September 04 to assess your heart function. This will help us evaluate the effectiveness of your treatment plan. - I will see you in 3 months to review your progress and adjust your care plan as needed. In the meantime, please reach out via [facility] if you have any concerns or questions. We discussed your role in managing your health: - Be an advocate for your care by ensuring all your providers are aware of changes to your medications and treatment plan. Inform Dr. Corcoran and Dr. Barrios that I have started you on Entresto and discontinued hydralazine and Imdur. - Continue your exercise routine, including walking 5 days a week and using the [employer], as this is beneficial for your overall health. - Monitor your symptoms, including swelling, shortness of breath, or any new or worsening issues, and report them promptly. Please let me know if you have any questions or concerns. Elena Jordan MD Follow up plannin months Electronically signed by Elena Jordan MD on August 05, 2024, 8:36 AM The above note was partially created using a dictation recognition software. A reasonable attempt has been made to correct any errors. documented in this encounter [facility] 07-19-2024 Telephone encounter Note Electronically signed most recent OV note (addended by Monica Hoyt CNP previously) was faxed, once again, to [facility] at . Fax confirmation received. Shasta Garsia RN July 19, 2024 2:01 PM [facility] 07-19-2024 Miscellaneous Notes Electronically signed most recent OV note (addended by Monica Hoyt CNP previously) was faxed, once again, to [facility] at . Fax confirmation received. Shasta Garsia RN July 19, 2024 2:01 PM Email sent to [facility] rep, Risa García, to inquire on the status of Pt's account and order for his CGM sensors. Shasta Garsia RN July 19, 2024 9:47 AM Phone inside sales professional for [facility] for clarification. Phone messages reports multiple faxes sent. Erica Inman MA [employer] he states that she sent the clinical notes but they were not signed.They are requesting from him that they are re sent over and signed. Please review and advise Cynthia documented in this encounter [facility] 07-19-2024 Telephone encounter Note Closing this encounter. Duplicate - being worked on in another encounter. Pending email and phone call out to [facility] rep. Shasta Garsia RN July 19, 2024 1:38 PM [facility] 07-19-2024 Miscellaneous Notes Closing this encounter. Duplicate - being worked on in another encounter. Pending email and phone call out to [facility] rep. Shasta Garsia RN July 19, 2024 1:38 PM documented in this encounter [facility] 07-19-2024 Telephone encounter Note Email sent to [facility] rep, Risa García, to inquire on the status of Pt's account and order for his CGM sensors. Shasta Garsia RN July 19, 2024 9:47 AM [facility] 07-18-2024 Telephone encounter Note Phone inside sales professional for [facility] for clarification. Phone messages reports multiple faxes sent. Erica Inman MA [facility] 07-18-2024 Telephone encounter Note [employer] he states that she sent the clinical notes but they were not signed.They are requesting from him that they are re sent over and signed. Please review and advise Cynthia [facility] 07-01-2024 Telephone encounter Note Addended OV notes indicating Pt compliance with CGM use faxed to [facility] for existing order, along with most recent 2 week CGM download report. Fax confirmation received. Shasta Garsia RN July 01, 2024 10:24 AM [facility] 07-01-2024 Miscellaneous Notes Addended OV notes indicating Pt compliance with CGM use faxed to [facility] for existing order, along with most recent 2 week CGM download report. Fax confirmation received. 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 June 21 3:23pm Coronary artery disease chronic M ay 2024 3:23pm Dyslipidemia chronic June 21 3:23pm Hypertension chronic June 21 3:23pm Ischemic cardiomyopathy chronic M ay 2024 3:23pm [place] [employer] Work Phone: 1(372) 202-655804-25-2025 Evaluation note* Diagnosis Onset Date Resolution Status Admit Date 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 June 07 3:18pm Coronary artery disease chronic A pril 2024 3:18pm Dyslipidemia chronic June 07, 2024 3:18pm Hypertension chronic June 07, 2024 3:18pm Ischemic cardiomyopathy chronic A pril 2024 3:18pm 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 June 21, 2024 3:23pm Coronary artery disease chronic M ay 2024 3:23pm Dyslipidemia chronic June 21 3:23pm Hypertension chronic June 21 3:23pm Ischemic cardiomyopathy chronic M ay 2024 3:23pm 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 July 12, 2024 2:48pm Coronary artery disease chronic M ay 2024 2:48pm Dyslipidemia chronic July 12 2:48pm Hypertension chronic July 12 2:48pm Ischemic cardiomyopathy chronic M ay 2024 2:48pm [facility] Work Phone: 1(633) 183-336804-25-2025 Evaluation note* Diagnosis Onset Date Resolution Status Admit Date 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 June 07 3:18pm Coronary artery disease chronic A pril 2024 3:18pm Dyslipidemia chronic June 07, 2024 3:18pm Hypertension chronic June 07, 2024 3:18pm Ischemic cardiomyopathy chronic A pril 2024 3:18pm 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 June 21, 2024 3:23pm Coronary artery disease chronic M ay 2024 3:23pm Dyslipidemia chronic June 21 3:23pm Hypertension chronic June 21 3:23pm Ischemic cardiomyopathy chronic M ay 2024 3:23pm Atrial tachycardia acute July 122024 2:48pm 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 Printed electronically signed notes and attached insurance cards. Faxed and received confirmation. Filedin [facility] Patient notes Yadira Ahn MA [facility]04-18-2025 Miscellaneous Notes* Telephone Encounter - Yadira Ahn MA - 05/31/2024 8:20 AM EDT [facility] faxed over a 'patient note' requesting most recent OV notes and patient's insurance cards. Printed electronically signed notes and attached insurance cards. Faxed and received confirmation. Raheel BROWN Patient notes Yadira Ahn MA [facility] NoteHNO ID: [id number] Author: ERICA INMAN MA Service: ? Author Type: Labor Relations Representative Type: Progress Notes Filed: 05/29/2024 11:57 Note Text:[facility]04-16-2025 History of Present illness Narrative* Erica Inman MA - 05/29/2024 11:28 AM EDT Images from the original note were not included. * Monica Hoyt, HAO.THREAD TRIMMER - 05/29/2024 11:26 AM EDT OFFICE VISIT PROGRESS NOTE CC Gamaliel Griffin is a 68 year old who presents today for blood sugar review. HPI Diagnosed with diabetes mellitus type 2, ~ 2009 Last endocrine OV 11/08/2023 Some elements copied from my note 11/08/2023 which have been updated where appropriate, and all reflect current medical decision making from date of this visit. HPI Sts co pay for CGM through local pharmacy was 70 dollars, not affordable to patient Did not go through DME for his sensors. Is using multiple insulin injections Has been finger sticking - did not bring his log book today, pt recall Does follow with Dr Barrios for nephrology for CKD 3b CURRENT DM MEDS FARXIGA 10 mg 1 tab daily LANTUS 25 units daily NOVOLOG 5-5-5 plus SS#1 THYROID SYNTHROID 175 mcg 1 tab daily (managed by PCP) SMBG Type of Monitor: Other Frequency of Monitoring: NOT USING CGM, paying out of pocket using fingerstick s BG Values: Breakfast: 110-140 Lunch: Dinner: 110-140 Bed-time: 1140-130 Values over past week: Highest ; Lowest Hypoglycemia: no Diet: Low carbohydrate Exercise: 3 days total gym 3 days 1 hour walking DM REVIEW OF SYSTEMS Last Eye Exam : 2023 will see retina specialist soon (reports eye have worsened since CABG) Last Podiatry Exam: Cardiorespiratory: negative, denies chest pain, pressure Claudication: no Dyslipidemia: Yes, controlled on medication High Blood Pressure: Yes, controlled on medication CURRENT LABS - labs ordered, not completedby patient for OV Recent Labs 01/10/23 1044 01/25/23 0813 01/26/23 1542 01/31/23 0026 02/01/23 0905 02/02/23 0453 05/10/23 1059 10/17/23 1613 10/17/23 1617 ALT 16 12 < > 11 19 -- -- 14 -- AST 19 12* < > 18 33 -- -- 21 -- UCRR -- -- -- -- -- -- -- -- 32.1 UALBR -- -- -- -- -- -- -- -- 536.5 UALBCR -- -- -- -- -- -- -- -- 1,671* TSH -- 2.050 -- -- -- -- -- -- -- TPROT 6.1* 5.5* < > 5.3* 5.9* -- -- 6.4 -- ALB 3.5* 3.5* < > 2.8* 3.4* -- -- 3.5* -- CA 8.7 8.4* < > 8.3* 8.2* 8.1* -- 8.9 -- TBILI 0.2 0.2 < > 0.4 0.6 -- -- 0.2 -- ALKPHOS 104 127* < > 58 67 -- -- 116* -- GLUC 296* 373* < > 125* 209* 197* -- 187* -- BUN 43* 50* < > 51* 47* 49* -- 48* -- CREAT 2.68* 2.60* < > 2.47* 2.36* 2.59* -- 2.60* -- NA 137 135* < > 137 136 134* -- 135* -- K 4.7 4.8 < > 3.8 3.9 4.6 -- 4.4 -- CHLOR 99 100 < > 101 100 102 -- 101 -- CO2 26 24 < > 23 26 21* -- 22 -- ANION 12 11 < > 13 10 11 -- 12 -- EGFROTH 25* 26* < > 28* 29* 26* -- 26* -- HBA1C 9.4* -- -- -- -- -- 6.8* 6.8* -- < > = values in this interval not displayed. 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 Sleep apnea PAST SURGICAL HISTORY Procedure Laterality Date CABG, VEIN, FOUR 01/26/2023 01/26/2023: CABGx4: SULLIVAN to LAD SVG to RPDA/SVG to OM2 /Left Radial to Ramus @ [facility] COLONOSCOPY FLX DX W/COLLJ SPEC WHEN PFRMD 06/23/2020 PAST SURGICAL HISTORY OF Cardiac stent x 4 FAMILY HISTORY Problem Relation Age of Onset other (passed at age 82) Mother Intersitial Lung Disease Mother Heart Attack Father other (passed at age 53) Father Cancer Paternal Grandfather Diabetes Sister other (valve disease) Sister other (atrial fib) Sister Social History Tobacco Use Smoking status: Never Smokeless tobacco: Never Substance Use Topics Alcohol use: Never Drug use: Never Current Outpatient Medications Medication Sig dapagliflozin propanediol (FARXIGA) 10 mg tablet Take 1 tablet by mouth daily with breakfast. KERENDIA 20 mg tablet Take 20 mg by mouth once daily. blood sugar diagnostic (TRUE METRIX GLUCOSE TEST STRIP) test strip Use as instructed to check bloodsugar 4 times a day insulin glargine (LANTUS SOLOSTAR U-100 INSULIN) 100 unit/mL (3 mL) Inject 14 units once daily (Patient taking differently: Inject 15 Units subcutaneously. Inject 14 units once daily) insulin aspart U-100 (NOVOLOG FLEXPEN U-100 INSULIN) 100 unit/mL (3 mL) Inject 5 units with meals PLUS SS#1 - pre meal blood sugar only (1 unit for every 50 over 150 PRE MEAL) TDD 20 units Blood-Glucose Sensor (Hook MobileSTYLE YAZMIN 3 SENSOR) kathleen CHANGE sensor every 14 days. USE FOR CONTINUOUS GLUCOSE MONITORING. MULTIPLE INSULIN INJECTIONS. E11.9 metoprolol succinate ER (TOPROL XL) 50 mg 24 hr tablet Take 1 tablet by mouth two times a day. senna-docusate (SENNA-S) 8.6-50 mg per tablet Take 1 tablet by mouth two times a day. Continue while on narcotic pain meds &/or as needed thereafter for mild post-op constipation & stool softening. Insulin Union, Disposable, (BD ULTRA-FINE KENN PEN NEEDLE) 32 gauge x 5/32 Use to inject insulin4 times a day Lancets lancets Use as directed to check blood sugars 4 times a day levothyroxine (SYNTHROID) 175 mcg tablet Take 150 mcg by mouth daily before breakfast. OTC PRODUCT Stool softner daily rosuvastatin (CRESTOR) 20 mg tablet Take 40 mg by mouth once daily. amLODIPine (NORVASC) 10 mg tablet Take 10 mg by mouth once daily. aspirin, enteric coated (ASPIRIN, ENTERIC COATED) 81 mg EC tablet Take 81 mg by mouth once daily. allopurinol (ZYLOPRIM) 300 mg tablet Take 300 mg by mouth once daily. buPROPion SR (ZYBAN SR; WELLBUTRIN SR) 150 mg 12 hr tablet Take 150 mg by mouth twice daily. No current facility-administered medications for this visit. ALLERGIES Allergen Reactions Lisinopril Swelling REVIEW OF SYSTEMS - POSITIVES IN BOLD GENERAL:No weight loss, malaise or fevers HEENT:Negative for frequent or significant headaches, No changes in hearing or vision, no nose bleeds or other nasal problems NECK:Negative for lumps, goiter, pain and significant neck swelling RESPIRATORY: Negative for cough, hemoptysis, wheezing, COPD, dyspnea or shortness of breath CARDIOVASCULAR: Negative for chest pain, leg swelling, hypertension, CHF or palpitations PHYSICAL EXAMINATION: Pulse (!) 55 Temp 36.9 C (98.5 F) (Temporal Artery) Resp 14 Wt 83.2 kg (183 lb 6.4 oz) VcY921% BMI 25.94 kg/m GENERAL: alert and appropriate, in no distress and well-hydrated, well nourished SKIN: no rash noted HEAD: normocephalic, no abnormality or lesion noted EYES: PERRL NECK: full ROM, no cervical LNs noted ACANTHOSIS: none noted EXTREMITIES: no edema NEUROLOGIC: no obvious deficit ASSESSMENT/PLAN (E11.9) Controlled type 2 diabetes mellitus without complication, unspecified 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 Will cont per current with basal and prandial insulin. 25 units basal NOVOLOG 5-5-5 plus SS#1 Recommended diet: Low carbohydrate and Low saturated fat, low simple sugar, high fiber diet Exercise minimally 150 minutes per week, increase as tolerated. Adequate hydration - 1/2 body wgt in oz of water daily, unless fluid restriction applies. I instructed the patient to monitor blood sugars 4 times per day If blood sugars are persistently high or low, to call our office. Patient to continue to follow up with his PCP and with other consultants regarding his other medical problems. Plan: COMPREHENSIVE METABOLIC PANEL, LIPID PANEL, NONFASTING, ALBUMIN/CREATININE RATIO, URINE, HEMOGLOBIN A1C Monica Hoyt CNP [facility] NoteHNO ID: [id number] Author: MONICA HOYT APRN.THREAD TRIMMER Service: ? Author Type: Nurse Practitioner Type: Progress Notes Filed: 06/29/2024 12:38 Note Text: OFFICE VISIT PROGRESS NOTE CC Gamaliel Griffin is a 68 year old who presents today for blood sugar review. HPI Diagnosed with diabetes mellitus type 2, ~ 2009 Last endocrine OV 11/08/2023 Some elements copied from my note 11/08/2023 which have been updated where appropriate, and all reflect current medical decision making from date of this visit. HPI Sts co pay for CGM through local pharmacy was 70 dollars, not affordable to patient Did not go through DME for his sensors. Is using multiple insulin injections Has been finger sticking - did not bring his log book today, pt recall Does follow with Dr Barrios for nephrology for CKD 3b CURRENT DM MEDS FARXIGA 10 mg 1 tab daily LANTUS 25 units daily NOVOLOG 5-5-5 plus SS#1 THYROID SYNTHROID 175 mcg 1 tab daily (managed by PCP) SMBG Type of Monitor: Other Frequency of Monitoring: BG Values: Note Hypoglycemia: no Diet: Low carbohydrate Exercise: 3 days total gym 3 days 1 hour walking DM REVIEW OF SYSTEMS Last Eye Exam : 2023 will see retina specialist soon (reports eye have worsened since CABG) Last Podiatry Exam: Cardiorespiratory: negative, denies chest pain, pressure Claudication: no Dyslipidemia: Yes, controlled on medication High Blood Pressure: Yes, controlled on medication CURRENT LABS - labs ordered, not completedby patient for OV Recent Labs 01/10/23 1044 01/25/23 0813 01/26/23 1542 01/31/23 0026 02/01/23 0905 02/02/23 0453 05/10/23 1059 10/17/23 1613 10/17/23 1617 ALT 16 12 < > 11 19 -- -- 14 -- AST 19 12* < > 18 33 -- -- 21 -- UCRR -- -- -- -- -- -- -- -- 32.1 UALBR -- -- -- -- -- -- -- -- 536.5 UALBCR -- -- -- -- -- -- -- -- 1,671* TSH -- 2.050 -- -- -- -- -- -- -- TPROT 6.1* 5.5* < > 5.3* 5.9* -- -- 6.4 -- ALB 3.5* 3.5* < > 2.8* 3.4* -- -- 3.5* -- CA 8.7 8.4* < > 8.3* 8.2* 8.1* -- 8.9 -- TBILI 0.2 0.2 < > 0.4 0.6 -- -- 0.2 -- ALKPHOS 104 127* < > 58 67 -- -- 116* -- GLUC 296* 373* < > 125* 209* 197* -- 187* -- BUN 43* 50* < > 51* 47* 49* -- 48* -- CREAT 2.68* 2.60* < > 2.47* 2.36* 2.59* -- 2.60* -- NA 137 135* < > 137 136 134* -- 135* -- K 4.7 4.8 < > 3.8 3.9 4.6 -- 4.4 -- CHLOR 99 100 < > 101 100 102 -- 101 -- CO2 26 24 < > 23 26 21* -- 22 -- ANION 12 11 < > 13 10 11 -- 12 -- EGFROTH 25* 26* < > 28* 29* 26* -- 26* -- HBA1C 9.4* -- -- -- -- -- 6.8* 6.8* -- < > = values in this interval not displayed. 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 Sleep apnea PAST SURGICAL HISTORY Procedure Laterality Date CABG, VEIN, FOUR 01/26/2023 01/26/2023: CABGx4: SULLIVAN to LAD SVG to RPDA/SVG to OM2 /Left Radial to Ramus @ [facility] COLONOSCOPY FLX DX W/COLLJ SPEC WHEN PFRMD 06/23/2020 PAST SURGICAL HISTORY OF Cardiac stent x 4 FAMILY HISTORY Problem Relation Age of Onset other (passed at age 82) Mother Intersitial Lung Disease Mother Heart Attack Father other (passed at age 53) Father Cancer Paternal Grandfather Diabetes Sister other (valve disease) Sister other (atrial fib) Sister Social History Tobacco Use Smoking status: Never Smokeless tobacco: Never Substance Use Topics Alcohol use: Never Drug use: Never Current Outpatient Medications Medication Sig dapagliflozin propanediol (FARXIGA) 10 mg tablet Take 1 tablet by mouth daily with breakfast. KERENDIA 20 mg tablet Take 20 mg by mouth once daily. blood sugar diagnostic (TRUE METRIX GLUCOSE TEST STRIP) test strip Use as instructed to check blood sugar 4 times a day insulin glargine (LANTUS SOLOSTAR U-100 INSULIN) 100 unit/mL (3 mL) Inject 14 units once daily (Patient taking differently: Inject 15 Units subcutaneously. Inject 14 units once daily) insulin aspart U-100 (NOVOLOG FLEXPEN U-100 INSULIN) 100 unit/mL (3 mL) Inject 5 units with meals PLUS SS#1 - pre meal blood sugar only (1 unit for every 50 over 150 PRE MEAL) TDD 20 units Blood-Glucose Sensor (FREESTYLE YAZMIN 3 SENSOR) kathleen CHANGE sensor every 14 days. USE FOR CONTINUOUS GLUCOSE MONITORING. MULTIPLE INSULIN INJECTIONS. E11.9 metoprolol succinate ER (TOPROL XL) 50 mg 24 hr tablet Take 1 tablet by mouth two times a day. senna-docusate (SENNA-S) 8.6-50 mg per tablet Take 1 tablet by mouth two times a day. Continue while on narcotic pain meds AND/or as needed thereafter for mi (more content not included)...[facility]01-02-2025 NoteHNO ID: [id number] Author: ?, ?, ? Service: ? Author Type: ? Type: Progress Notes Filed: 02/15/2024 11:46 Note Text: QOL Call Tracking Documentation Follow-Up Type: Phone Call Call Attempt: 1st Attempt Call Status: Patient will complete in [facility] 02-15-2024 History of Present illness Narrative* Rohini Cody - 02/15/2024 11:46 AM EST QOL Call Tracking Documentation Follow-Up Type: Phone Call Call Attempt: 1st Attempt Call Status: Patient will complete in MyChart [facility] NotePatient Outreach (CIUMN) GAMALIEL GRIFFIN ([id number]) 1955 M Date Time Provider [facility] your visit today, we recorded the following information about you: Rohini Cody 02/15/2024 11:46 AM Signed QOL Call Tracking Documentation Follow-Up Type: Phone Call Call Attempt: 1st Attempt Call Status: Patient will complete in [facility] Allergies As of Date: 02/15/2024 Noted Allergy Reaction LISINOPRIL 09/30/2022 7 - Swelling Date Reviewed: 01/03/2024 Reviewed by: Yessenia Oconnor DO - Fully Assessed Prescriptions as of 02/15/2024 - KERENDIA 20 mg tablet Take 20 mg by mouth once daily. - blood sugar diagnostic (TRUE METRIX GLUCOSE TEST STRIP) test strip Use as instructed to check blood sugar 4 times a day - insulin glargine (LANTUS SOLOSTAR U-100 INSULIN) 100 unit/mL (3 mL) Inject 14 units once daily - insulin aspart U-100 (NOVOLOG FLEXPEN U-100 INSULIN) 100 unit/mL (3 mL) Inject 5 units with meals PLUS SS#1 - pre meal blood sugar only (1 unit for every 50 over 150 PRE MEAL) TDD 20 units - Blood-Glucose Sensor (FREESTYLE YAZMIN 3 SENSOR) kathleen CHANGE sensor every 14 days. USE FOR CONTINUOUS GLUCOSE MONITORING. MULTIPLE INSULIN INJECTIONS. E11.9 - metoprolol succinate ER (TOPROL XL) 50 mg 24 hr tablet Take 1 tablet by mouth two times a day. - dapagliflozin propanediol (FARXIGA) 10 mg tablet Take 1 tablet by mouth daily with breakfast. - senna-docusate (SENNA-S) 8.6-50 mg per tablet Take 1 tablet by mouth two times a day. Continue while on narcotic pain meds AND/or as needed thereafter for mild post-op constipation AND stool softening. - Insulin Union, Disposable, (BD ULTRA-FINE KENN PEN NEEDLE) 32 gauge x Use to inject insulin 4 times a day - Lancets lancets Use as directed to check blood sugars 4 times a day - levothyroxine (SYNTHROID) 175 mcg tablet Take 150 mcg by mouth daily before breakfast. - OTC PRODUCT Stool softner daily - rosuvastatin (CRESTOR) 20 mg tablet Take 40 mg by mouth once daily. - amLODIPine (NORVASC) 10 mg tablet Take 10 mg by mouth once daily. - aspirin, enteric coated (ASPIRIN, ENTERIC COATED) 81 mg EC tablet Take 81 mg by mouth once daily. - allopurinol (ZYLOPRIM) 300 mg tablet Take 300 mg by mouth once daily. - buPROPion SR (ZYBAN SR; WELLBUTRIN SR) 150 mg 12 hr tablet Take 150 mg by mouth twice daily. Problem List As Of Date 02/15/2024 Noted Resolved Ischemic cardiomyopathy [I25.5] 01/10/2023 CAD (coronary artery disease) [I25.10] 01/10/2023 Hypertensive kidney disease with stage 3 chroni*01/10/2023 Essential hypertension [I10] 01/10/2023 Stage 3b chronic kidney disease (HCC) [N18.32] 01/10/2023 Type 2 diabetes mellitus with stage 3b chronic *01/10/2023 Discharge planning issues [Z75.8] 01/24/2023 Special screening for malignant neoplasms, colo*01/24/2023 Acute on chronic systolic congestive heart fail*01/26/2023 01/31/2023 HLD (hyperlipidemia) [E78.5] 01/26/2023 Hypothyroid [E03.9] 01/26/2023 Gout [M10.9] 01/26/2023 JESENIA (obstructive sleep apnea) [G47.33] 01/26/2023 Mitral regurgitation [I34.0] 01/26/2023 Coronary artery disease due to lipid rich plaqu*01/26/2023 ABLA (acute blood loss anemia) [D62] 01/28/2023 Thrombocytopenia (HCC) [D69.6] 01/28/2023 01/30/2023 Hypervolemia [E87.70] 01/28/2023 Hyperkalemia [E87.5] 01/28/2023 01/30/2023 Hyponatremia [E87.1] 01/28/2023 01/30/2023 Postoperative pain [G89.18] 01/30/2023 Atrial fibrillation with RVR (HCC) [I48.91] 01/30/2023 Insulin dose changed (HCC) [Z79.4] 01/30/2023 Chronic systolic congestive heart failure (HCC)*01/31/2023 Summary [Z91.89] 02/01/2023 Hyperparathyroidism (HCC) [E21.3] 08/04/2023 Encounter Status:Closed by ROHINI CODY on 02/15/24[facility] NoteHNO ID: [id number] Author: YESSENIA OCONNOR DO Service: ? Author Type: Physician Type: Progress Notes Filed: 01/03/2024 12:21 Note Text: [facility] Department of Cardiovascular Medicine [facility] OUTPATIENT VISIT DATE January 03, 2024 OUTPATIENT VISIT TYPE NEW PATIENT Name: Gamaliel Griffin : 1955 Date: January 03, 2024 PRIMARY CARE PHYSICIAN: [place] [address] REFERRING PHYSICIAN: No referring provider defined for this encounter. CHIEF COMPLAINT: Patient presents with: CARD Follow Up 6 Month: No new cardiac concerns IMPRESSION / PLAN: 1. Coronary artery disease status post coronary bypass grafting x 4 on January 26, 2023 at [facility] with a SULLIVAN to the LAD, SVG to the PDA, SVG to OM 2 and left radial artery to the ramus. Patient is doing very well from a cardiac standpoint with no evidence of anginal symptoms and continues to exercise on a daily basis without concerns. We discussed short and long-term prognosis and secondary prevention measures. 2. Ischemic cardiomyopathy with an ejection fraction of 40%. Patient had an echocardiogram on May 05, 2023 with an improved ejection fraction of 40% from 29% in December 2022. I will continue to follow with periodic echocardiograms and maximize his heart failure medications. He is unable to take [place]/ARB and is on hydralazine and nitroglycerin combination. 2. Hypertension. Patient is somewhat confused on his current medications this morning and will be messaging me the exact dosages and will fine-tune this medication. He is having some occasional hypotensive symptoms and most likely will be stopping the isosorbide and hydralazine and simplifying his metoprolol to once a day. He is having some lower extremity edema secondary to venous insufficiency after his venous harvesting of both legs and amlodipine. 3. Hyperlipidemia. Recommended a goal LDL of 50 and will be obtaining his labs from his family physician on a regular basis. 4. Moderate chronic renal sufficiency with a baseline creatinine approximately 2.6. Patient is followed closely by nephrology. Follow Up Instructions Return in about 1 year (around 01/02/2025). ORDERS FOR TODAY'S VISIT: Office Visit on 01/03/24 ECG COMPLETE HISTORY OF PRESENT ILLNESS: Gamaliel Griffin is an 68 year old male with a past history of hypertension, hyperlipidemia, moderate renal insufficiency and recent findings of coronary artery disease requiring CABG at [facility] in January 2023 and presents today for follow-up. He is doing very well from a cardiac standpoint with no complaints of chest pain, significant exertional shortness of breath, palpitations, syncope or near syncope. He does have some lower extremity edema left greater than right. He is performing all of his activities including daily exercise without complaints of chest pain or shortness of breath. PAST MEDICAL HISTORY Diagnosis Date Anemia, unspecified CAD (coronary artery disease) Cardiomyopathy (HCC) Congestive heart failure (HCC) Diabetes mellitus (HCC) Dyslipidemia Essential hypertension Gout H/O heart artery stent Hypothyroidism Kidney stone S/P CABG x 4 01/26/2023 Sleep apnea PAST SURGICAL HISTORY Procedure Laterality Date CABG, VEIN, FOUR 01/26/2023 01/26/2023: CABGx4: SULLIVAN to LAD SVG to RPDA/SVG to OM2 /[facility] [facility] FLX DX W/COLLJ SPEC WHEN PFRMD 06/23/2020 PAST SURGICAL HISTORY OF Cardiac stent x 4 SOCIAL HISTORY Social History Tobacco Use Smoking status: Never Smokeless tobacco: Never Substance Use Topics Alcohol use: Never Drug use: Never FAMILY HISTORY Problem Relation Age of Onset other (passed at age 82) Mother Intersitial Lung Disease Mother Heart Attack Father other (passed at age 53) Father Cancer Paternal Grandfather Diabetes Sister other (valve disease) Sister other (atrial fib) Sister ALLERGIES: ALLERGIES Allergen Reactions Lisinopril Swelling MEDICATIONS: KERENDIA 20 mg tablet Take 20 mg by mouth once daily. blood sugar diagnostic (TRUE METRIX GLUCOSE TEST STRIP) test strip Use as instructed to check blood sugar 4 times a day insulin glargine (LANTUS SOLOSTAR U-100 INSULIN) 100 unit/mL (3 mL) Inject 14 units once daily (Patient taking differently: Inject 15 Units subcutaneously. Inject 14 units once daily) insulin aspart U-100 (NOVOLOG FLEXPEN U-100 INSULIN) 100 unit/mL (3 mL) Inject 5 units with meals PLUS SS#1 - pre meal blood sugar only (1 unit for every 50 over 150 PRE MEAL) TDD 20 units Blood-Glucose Sensor (FREESTYLE YAZMIN 3 SENSOR) kathleen CHANGE sensor every 14 days. USE FOR CONTINUOUS GLUCOSE MONITORING. MULTIPLE INSULIN INJECTIONS. E11.9 metoprolol succinate ER (TOPROL XL) 50 mg 24 hr tablet Dimitris (more content not included)...[facility]11-20-2024 History of Present illness Narrative* Yessenia Oconnor, - 01/03/2024 11:49 AM EST Images from the original note were not included. Heart and Vascular [facility] Department of Cardiovascular Medicine [facility] OUTPATIENT VISIT DATE January 03, 2024 OUTPATIENT VISIT TYPE NEW PATIENT Name: Gamaliel Griffin : 1955 Date: January 03, 2024 PRIMARY CARE PHYSICIAN: MD John Menendez [address] [address] REFERRING PHYSICIAN: No referring provider defined for this encounter. CHIEF COMPLAINT: Patient presents with: CARD Follow Up 6 Month: No new cardiac concerns IMPRESSION / PLAN: 1. Coronary artery disease status post coronary bypass grafting x 4 on January 26, 2023 at [facility] with a SULLIVAN to the LAD, SVG to the PDA, SVG to OM 2 and left radial artery to the ramus. Patient is doing very well from a cardiac standpoint with no evidence of anginal symptoms and continues to exercise on a daily basis without concerns. We discussed short and long-term prognosis and secondary prevention measures. 2. Ischemic cardiomyopathy with an ejection fraction of 40%. Patient had an echocardiogram on 2023 with an improved ejection fraction of 40% from 29% in December 2022. I will continue to follow with periodic echocardiograms and maximize his heart failure medications. He is unable to take [place]/ARB and is on hydralazine and nitroglycerin combination. 2. Hypertension. Patient is somewhat confused on his current medications this morning and will be messaging me the exact dosages and will fine-tune this medication. He is having some occasional hypotensive symptoms and most likely will be stopping the isosorbide and hydralazine and simplifying his metoprolol to once a day. He is having some lower extremity edema secondary to venous insufficiency after his venous harvesting of both legs and amlodipine. 3. Hyperlipidemia. Recommended a goal LDL of 50 and will be obtaining his labs from his family physician on a regular basis. 4. Moderate chronic renal sufficiency with a baseline creatinine approximately 2.6. Patient is followed closely by nephrology. Follow Up Instructions Return in about 1 year (around 01/02/2025). ORDERS FOR TODAY'S VISIT: Office Visit on 01/03/24 ECG COMPLETE HISTORY OF PRESENT ILLNESS: Gamaliel Griffin is an 68 year old male with a past history of hypertension, hyperlipidemia, moderate renal insufficiency and recent findings of coronary artery disease requiring CABG at [facility] in January 2023 and presents today for follow-up. He is doing very well from a cardiac standpoint withno complaints of chest pain, significant exertional shortness of breath, palpitations, syncope or near syncope. He does have some lower extremity edema left greater than right. He is performing all of his activities including daily exercise without complaints of chest pain or shortness of breath. PAST MEDICAL HISTORY Diagnosis Date Anemia, unspecified CAD (coronary artery disease) Cardiomyopathy (HCC) Congestive heart failure (HCC) Diabetes mellitus (HCC) Dyslipidemia Essential hypertension Gout H/O heart artery stent Hypothyroidism Kidney stone S/P CABG x 4 01/26/2023 Sleep apnea PAST SURGICAL HISTORY Procedure Laterality Date CABG, VEIN, FOUR 01/26/2023 01/26/2023: CABGx4: SULLIVAN to LAD SVG to RPDA/SVG to OM2 /Left Radial to Ramus @ [facility] COLONOSCOPY FLX DX W/COLLJ SPEC WHEN PFRMD 06/23/2020 PAST SURGICAL HISTORY OF Cardiac stent x 4 SOCIAL HISTORY Social History Tobacco Use Smoking status: Never Smokeless tobacco: Never Substance Use Topics Alcohol use: Never Drug use: Never FAMILY HISTORY Problem Relation Age of Onset other (passed at age 82) Mother Intersitial Lung Disease Mother Heart Attack Father other (passed at age 53) Father Cancer Paternal Grandfather Diabetes Sister other (valve disease) Sister other (atrial fib) Sister ALLERGIES: ALLERGIES Allergen Reactions Lisinopril Swelling MEDICATIONS: KERENDIA 20 mg tablet Take 20 mg by mouth once daily. blood sugar diagnostic (TRUE METRIX GLUCOSE TEST STRIP) test strip Use as instructed to check bloodsugar 4 times a day insulin glargine (LANTUS SOLOSTAR U-100 INSULIN) 100 unit/mL (3 mL) Inject 14 units once daily (Patient taking differently: Inject 15 Units subcutaneously. Inject 14 units once daily) insulin aspart U-100 (NOVOLOG FLEXPEN U-100 INSULIN) 100 unit/mL (3 mL) Inject 5 units with meals PLUS SS#1 - pre meal blood sugar only (1 unit for every 50 over 150 PRE MEAL) TDD 20 units Blood-Glucose Sensor (FREESTYLE YAZMIN 3 SENSOR) kathleen CHANGE sensor every 14 days. USE FOR CONTINUOUS GLUCOSE MONITORING. MULTIPLE INSULIN INJECTIONS. E11.9 metoprolol succinate ER (TOPROL XL) 50 mg 24 hr tablet Take 1 tablet by mouth two times a day. dapagliflozin propanediol (FARXIGA) 10 mg tablet Take 1 tablet by mouth daily with breakfast. senna-docusate (SENNA-S) 8.6-50 mg per tablet Take 1 tablet by mouth two times a day. Continue while on narcotic pain meds &/or as needed thereafter for mild post-op constipation & stool softening. Insulin Union, Disposable, (Fixya ULTRA-FINE KENN PEN NEEDLE) 32 gauge x /32 Use to inject insulin4 times a day Lancets lancets Use as directed to check blood sugars 4 times a day levothyroxine (SYNTHROID) 175 mcg tablet Take 150 mcg by mouth daily before breakfast. OTC PRODUCT Stool softner daily rosuvastatin (CRESTOR) 20 mg tablet Take 40 mg by mouth once daily. amLODIPine (NORVASC) 10 mg tablet Take 10 mg by mouth once daily. aspirin, enteric coated (ASPIRIN, ENTERIC COATED) 81 mg EC tablet Take 81 mg by mouth once daily. allopurinol (ZYLOPRIM) 300 mg tablet Take 300 mg by mouth once daily. buPROPion SR (ZYBAN SR; WELLBUTRIN SR) 150 mg 12 hr tablet Take 150 mg by mouth twice daily. REVIEW OF SYSTEMS: GENERAL: Negative for: Weight loss or gain, Fever or Chills NECK: Negative for: Swelling, Pain, Stiffness RESPIRATORY: Negative for: Cough, Blood in Sputum GASTROINTESTINAL: Negative for: Trouble swallowing, Heartburn, Change in bowel habits, Blood in stool, Dark black stools MUSCULOSKELETAL: Negative for: Severe Muscle or joint pain, Stiffness , Joint swelling NEUROLOGIC/PSYCHIATRIC: Negative for: Paralysis, Numbness, Tingling, Tremor SKIN: Negative for: Rashes, Itching HEMATOLOGICAL/LYMPHATIC: Negative for: Easy bruising , Easy bleeding ENDOCRINE: Negative for: Heat or cold intolerance, Excessive sweating, Frequent urination All other review of systems, per history of present illness. PHYSICAL EXAMINATION: BP 126/70 Pulse 60 Ht 179.1 cm (5' 10.5) Wt 80 kg (176 lb 5.9 oz) SpO2 96% BMI 24.95 kg/m Last 2 Encounter Wt Readings: Date: Wt: 06/28/2023 85.8 kg (189 lb 2.5 oz) 05/10/2023 84.4 kg (186 lb) General: Well appearing, in no acute distress. Skin: No clubbing, no cyanosis. Eyes: Extra ocular movements intact Oropharynx: No gross abnormalities Neck: No jugular venous distention, no carotid bruits, carotids have a normal upstroke, no palpablethyromegaly. Lungs: Clear to auscultation bilaterally, no wheezing or rhonchi. Heart: Regular rhythm, PMI not displaced, S1, S2, no S3, no S4, no murmur. Chest: Sternum is intact and scars are well-healed. Abdomen: Soft, nontender, bowel sounds normal, no palpable organomegaly, no bruits. Extremities: Minimal bilateral edema left greater than right, +2 distal pulses bilaterally. Left radial site is well-healed, saphenous vein graft harvesting site is well-healed Neuro: Oriented to person, place and time, alert, cooperative. CARDIOVASCULAR MEDICINE TESTING: Electrocardiogram: Normal sinus rhythm with anteroseptal infarct Yessenia Oconnor DO, [facility] Staff Linux Administrator Yessenia and Melva Chou Dept. of Cardiovascular Medicine Heart, Vascular and Thoracic [facility], [facility] This document was generated using the assistance of voice recognition software. If there are any errors of spelling, grammar, syntax or meaning, please feel free to contact me directly at anytime. documented in [facility] encounterCorey [facility]24 NoteHNO ID: [id number] Author: BERNARDINO HENRIQUEZ RN Service: ? Author Type: Registered Nurse Type: Progress Notes Filed: 12/27/2023 11:12 Note Text: Kidney PreTransplant insurance application investigator Referring physician:Myrna Barrios Referral intake:see phone encounter dated: 12-22-23 eGFR is 26. Has never been lower than 25. Referred too soon and referral closed [facility]11-13-2024 History of Present illness Narrative* Bernardino Henriquez RN - 12/27/2023 11:05 AM EST Kidney PreTransplant insurance application investigator Referring physician:Myrna Barrios Referral intake:see phone encounter dated: 12-22-23 eGFR is 26. Has never been lower than 25. Referred too soon and referral closed documented in this encounterCorey Hospital11-[facility]24 Telephone encounter Note * Telephone Encounter - Cely Dumont - 12/22/2023 12:20 PM EST KIDNEY TRANSPLANT REFERRAL (enter above which organ the patient needs; Kidney, Pancreas or Kidney/Pancreas) Is this referral for a Safety Net or HIV Patient? No (Safety Net = Pt needing an additional transplant within 12 months for any organ) Gamaliel Griffin [phone] Spoke with: Patient Best Contact FOR PANCREAS AND KIDNEY/PANCREAS TRANSPLANT AGE 55+ is a HARD STOP If patient is NOT on Dialysis & has a GFR >21 is a HARD STOP REFERRING STOCK HANDLER / PHYSICIAN:Dr. Denis Norris Have you ever been evaluated for kidney/pancreas transplant? No If YES, where? N/A Status of listing/evaluation: N/A Have you had a previous transplant? No Have you had one or both kidneys removed: No Reason: N/A OUT OF STATE MEDICAID PATIENTS: APC - run the Medicaid through [facility] to determine if the coverage is Out of Network (OON) with [facility]. If the Medicaid is OON, inform the patient that their PCP will need to send a referral to the Outof State Medicaid for a Transplant Evaluation. Have you been seen at another Transplant Center that was in-network with your Out of State (OOS) Medicaid and denied a Transplant Evaluation? No Has your PCP sent in a referral for transplant to your (OOS) Medicaid trimming caser? No Height: 5.9 Weight: 170 BMI: 25.1 KIDNEY TRANSPLANT BMI>42 is a HARD STOP PANCREAS TRANSPLANT BMI>32 is a HARD STOP Have you had weight loss without trying within the last 30 days? No If YES, please complete the Malnutrition Screening Tool (MST). Malnutrition Screening Tool (MST) If YES, how much weight have you lost? Unsure- 2 Weight loss score: 0 Have you been eating poorly in the last week because of a decreased appetite? No- 0 Appetite score: 0 Total MST score (weight loss + appetite scores): 0 Score of 2 or more = referral to registered dietitian for an individual appointment ___ Any history of Smoking/Vaping/Nicotine products: Non-smoker If a current smoker, this is a HARD STOP Packs/Day N/A X # of Yrs smoked N/A = Pack Yrs N/A Oxygen use: No If on continuous oxygen this is a HARD STOP Blood Transfusion: Are you willing to accept a blood transfusion if needed? Yes If NO this is a HARD STOP Assistive devices: No assistive device Activity Level: Athletic COPD/Emphysema/Other pulmonary problem: No Dialysis: No Days: N/A Dialysis start date: N/A If not on dialysis, what is your GFR? 26 Do you have Diabetes? Type 2 Age diagnosed: 58 Insulin dependent: Yes Hypoglycemic unawareness: No Have you had a Kidney Biopsy: No Have you had a Liver Biopsy: No Dx of Cirrhosis? No Dx of Hepatitis? No Hx of ETOH? No Hx of Drug use? No Hx of Psychiatric disorder? No Dx of HIV/AIDS? No if yes, Infectious Disease doctor name/where? Hx of Cancer? no Hx of Hypertension? Yes Hx of VT/Heart Attack? Yes, 2013. [facility] Hx of TIA/CVA or Stroke? No Are you on a blood thinner? Yes If YES which medication are you on? Aspirin Have you had a CABG or STENTS? Yes. If yes, date and location: 10 years ago [facility] [place] Have you ever had a Stress Test? Yes. If yes, date and location: 2022 [facility] Have you ever had an Echo? Yes. If yes, date and location: 2022 [facility] Have you ever had a Cardiac Cath? Yes. If yes, date and location: [address] [facility] [address] Abdomen/Pelvis: No Mammogram: No Pap Test: No Colonoscopy: Yes. If yes, date and location: [facility] 2023 Hx of Lupus? No Sickle Cell Trait or Disease: No Have you had any prior surgeries? Yes, Quadruple bypass surgery in 2022 Do you have a potential living donor? No MyCHART Is the patient signed up for [employer]? Yes If YES - send patient the Kidney/Pancreas New Referral Message. If NO - obtain their email address AND send [employer] sign up information: email address: [email or web address] Is the patient okay with having a Virtual Appt: Yes What facilities do we need outside records from: N/A Have records been retrieved from Care Everywhere: Yes. Have records been requested from [facility]? No Additional Comments about patient/evaluation: No Route the referral to the Kidney Txp valve machine operator, Bernardino Henriquez. Cely Dumont [facility]-08-[facility] Miscellaneous Notes* Telephone Encounter - Cely Dumont - 12/22/2023 12:20 PM EST KIDNEY TRANSPLANT REFERRAL (enter above which organ the patient needs; Kidney, Pancreas or Kidney/Pancreas) Is this referral for a Safety Net or HIV Patient? No (Safety Net = Pt needing an additional transplant within 12 months for any organ) Gamaliel Griffin [id number] Spoke with: Patient Best Contact FOR PANCREAS AND KIDNEY/PANCREAS TRANSPLANT AGE 55+ is a HARD STOP If patient is NOT on Dialysis & has a GFR >21 is a HARD STOP REFERRING STOCK HANDLER / PHYSICIAN:Dr. Denis Norris Have you ever been evaluated for kidney/pancreas transplant? No If YES, where? N/A Status of listing/evaluation: N/A Have you had a previous transplant? No Have you had one or both kidneys removed: No Reason: N/A OUT OF STATE MEDICAID PATIENTS: APC - run the Medicaid through [facility] to determine if the coverage is Out of Network (OON) with [facility]. If the Medicaid is OON, inform the patient that their PCP will need to send a referral to the Outof State Medicaid for a Transplant Evaluation. Have you been seen at another Transplant Center that was in-network with your Out of State (OOS) Medicaid and denied a Transplant Evaluation? No Has your PCP sent in a referral for transplant to your (OOS) Medicaid trimming caser? No Height: 5.9 Weight: 170 BMI: 25.1 KIDNEY TRANSPLANT BMI>42 is a HARD STOP PANCREAS TRANSPLANT BMI>32 is a HARD STOP Have you had weight loss without trying within the last 30 days? No If YES, please complete the Malnutrition Screening Tool (MST). Malnutrition Screening Tool (MST) If YES, how much weight have you lost? Unsure- 2 Weight loss score: 0 Have you been eating poorly in the last week because of a decreased appetite? No- 0 Appetite score: 0 Total MST score (weight loss + appetite scores): 0 Score of 2 or more = referral to registered dietitian for an individual appointment ___ Any history of Smoking/Vaping/Nicotine products: Non-smoker If a current smoker, this is a HARD STOP Packs/Day N/A X # of Yrs smoked N/A = Pack Yrs N/A Oxygen use: No If on continuous oxygen this is a HARD STOP Blood Transfusion: Are you willing to accept a blood transfusion if needed? Yes If NO this is a HARD STOP Assistive devices: No assistive device Activity Level: Athletic COPD/Emphysema/Other pulmonary problem: No Dialysis: No Days: N/A Dialysis start date: N/A If not on dialysis, what is your GFR? 26 Do you have Diabetes? Type 2 Age diagnosed: 58 Insulin dependent: Yes Hypoglycemic unawareness: No Have you had a Kidney Biopsy: No Have you had a Liver Biopsy: No Dx of Cirrhosis? No Dx of Hepatitis? No Hx of ETOH? No Hx of Drug use? No Hx of Psychiatric disorder? No Dx of HIV/AIDS? No if yes, Infectious Disease doctor name/where? Hx of Cancer? no Hx of Hypertension? Yes Hx of VT/Heart Attack? Yes, 2013. [facility] Hx of TIA/CVA or Stroke? No Are you on a blood thinner? Yes If YES which medication are you on? Aspirin Have you had a CABG or STENTS? Yes. If yes, date and location: 10 years ago [facility] [place] Have you ever had a Stress Test? Yes. If yes, date and location: 2022 [facility] Have you ever had an Echo? Yes. If yes, date and location: 2022 [facility] Have you ever had a Cardiac Cath? Yes. If yes, date and location: [address] [facility] [address] Abdomen/Pelvis: No Mammogram: No Pap Test: No Colonoscopy: Yes. If yes, date and location: [facility] 2023 Hx of Lupus? No Sickle Cell Trait or Disease: No Have you had any prior surgeries? Yes, Quadruple bypass surgery in 2022 Do you have a potential living donor? No [employer] Is the patient signed up for [employer]? Yes If YES - send patient the Kidney/Pancreas New Referral Message. If NO - obtain their email address AND send [employer] sign up information: email address: Is the patient okay with having a Virtual Appt: Yes What facilities do we need outside records from: N/A Have records been retrieved from Care Everywhere: Yes. [facility]? No Additional Comments about patient/evaluation: No Route the referral to the Kidney Txp valve machine operator, Bernardino Henriquez. Cely Dumont documented in this encounterCorey Hospital11-05-2024 Telephone encounter Note * Telephone Encounter - Patrick Mattson RN - 12/19/2023 11:41 AM EST Called pt gave him number to [facility] - [facility] [place] - [phone] To call about Maurisio as he had in the past. [facility]-05-[facility] Miscellaneous Notes* Telephone Encounter - Patrick Mattson RN - 12/19/2023 11:41 AM EST Called pt gave him number to [facility] - [facility] [place] - [phone] To call about Maurisio as he had in the past. documented in this encounterCorey Hospital09-25-2024 Instructions* Patient Instructions* Monica Hoyt APRN.[facility] - 11/08/2023 9:57 AM EDT LANTUS Inject 14 units once daily NOVOLOG Inject 5 units with breakfast PLUS SS#1 Inject 5 units with lunch PLUS SS#1 Inject 5 units with dinner PLUS SS#1 Sliding Scale Insulin Dosing PRE MEAL BLOOD SUGAR ONLY Sliding Scale 1 (1 unit for every 50 mg/dL > 150 mg/dL) SUPPLEMENTAL INSULIN If Blood Glucose (mg/dL) is < 150 Give 0 units 151-200 Give 1 unit 201-250 Give 2 units 251-300 Give 3 units 301-350 Give 4 units 351-400 Give 5 units >400 Give 6 units, call physician if blood glucose does not improve. documented in this encounterCorey Hospital09-25-2024 NoteHNO ID: [id number] Author: SHASTA GARSIA RN Service: ? Author Type: Registered Nurse Type: Progress Notes Filed: 11/08/2023 10:01 Note Text:[facility]09-25-20[facility] History of Present illness Narrative* Shasta Garsia RN - 11/08/2023 9:51 AM EDT Images from the original note were not included. * Monica Hoyt APRN.CNP - 11/08/2023 9:45 AM EDT Images from the original note were not included. OFFICE VISIT PROGRESS NOTE CC Gamaliel Griffin is a 67 year old who presents today for blood sugar review, insulin review, adjust. HPI Diagnosed with diabetes mellitus type 2, ~ 2009 Last endocrine OV 05/10/2023 Some elements copied from my note 05/10/2023 which have been updated where appropriate, and all reflect current medical decision making from date of this visit. HISTORY OF PRESENT ILLNESS; Gamaliel Griffin is a 67 year old MALE is presenting as a new patient to me regarding DM Type 2. He was initially diagnosed with diabetes in ~12-15 years. Sts since having his CGM since () 'changed my life' Modified his diet Lost 50 pounds 6 years ago, started exercising CABG x - Jan 2023 Goes to the gym regularly Went through 3 cardiac rehab, felt that they were 'holding him back' 3 days per week, 3 miles Does report he is only limited by his feet / lower ext pain Sts PCP last checked his A1C in February 6.7% He does have a family history of diabetes mellitus in his Mother. Sister The patient reports the following microvascular complications: nephropathy Gamaliel has no know macrovascular complications of diabetes.. (recent CABG, pt not related) DM Education No Knows how to carb count Yes - saw DM nurse at [facility] 40 grams per meal - DIETARY HISTORY: Breakfast: cereal OR toast or bagel with water or tea and carnation breakfast daily with fruit (apple, oranges, grapes) Lunch fruit (apple or orange) and sandwich deli Dinner cooks, balanced protein/starch/vegetable OR soup rarely eat out or take out Snacks not really, rarely, if does may have saltine crackers OR pretzels Drinks water, tea Exercise: [employer] total gym program (3-4 times per week) HPI 11/08/2023 Has nephro, sees at least q 6 mos. Drinks a lot of water Pt manipulates own insulin dosing and recently reduced doses Sts bottoms at night CURRENT DM MEDS pt manipulates own insulin dosing FARXIGA 10 mg 1 tab daily LANTUS 10 NOVOLOG 7-7-7 plus THYROID SYNTHROID 175 mcg 1 tab daily (managed by PCP) SMBG Type of Monitor: Other Frequency of Monitoring: [employer] YAZMIN CGM times a day Pt NOT SHARED WITH OFFICE Hypoglycemia: no Diet: Low carbohydrate Exercise: as per above DM REVIEW OF SYSTEMS Last Eye Exam : 2022 will see retina specialist soon (reports eye have worsened since CABG) Last Podiatry Exam: Cardiorespiratory: negative, denies chest pain, pressure Claudication: no Dyslipidemia: Yes, controlled on medication High Blood Pressure: Yes, controlled on medication CURRENT LABS Latest Ref Rng 05/10/2023 10/17/2023 Glucose 74 - 99 mg/dL 187 (H) BUN 9 - 24 mg/dL 48 (H) Creatinine 0.73 - 1.22 mg/dL 2.60 (H) Sodium 136 - 144 mmol/L 135 (L) Potassium 3.7 - 5.1 mmol/L 4.4 Chloride 98 - 107 mmol/L 101 CO2 22 - 30 mmol/L 22 Anion Gap 8 - 15 mmol/L 12 eGFR >=60 mL/min/1.73m 26 (L) Total Cholesterol, Nonfasting <200 mg/dL 138 Triglycerides, Nonfasting <150 mg/dL 215 (H) HDL Cholesterol, Nonfasting >39 mg/dL 40 LDL Cholesterol, Nonfasting <100 mg/dL 55 Non HDL Cholesterol, Nonfasting <130 mg/dL 98 VLDL Cholesterol, Nonfasting <30 mg/dL 43 (H) Total Chol/HDL Ratio, Nonfasting <5.10 mg/dL 3.45 LDL/HDL Ratio, Nonfasting <2.54 mg/dL 1.38 Case Report FINAL DIAGNOSIS Gross description Performing Lab Creatinine, Ur Random (UCRR) 20.0 - 300.0 mg/dL 32.1 Albumin, Urine Random mg/L 536.5 Albumin/Creat Ratio <30 mg/g 1,671 (H) Hemoglobin A1C 4.3 - 5.6 % 6.8 (H) 6.8 (H) Estimated Average Glucose mg/dL 148 148 Legend: (H) High (L) Low Recent Labs 01/10/23 1044 01/25/23 0813 01/26/23 1542 01/31/23 0026 02/01/23 0905 02/02/23 0453 05/10/23 1059 10/17/23 1613 10/17/23 1617 ALT 16 12 < > 11 19 -- -- 14 -- AST 19 12* < > 18 33 -- -- 21 -- UCRR -- -- -- -- -- -- -- -- 32.1 UALBR -- -- -- -- -- -- -- -- 536.5 UALBCR -- -- -- -- -- -- -- -- 1,671* TSH -- 2.050 -- -- -- -- -- -- -- TPROT 6.1* 5.5* < > 5.3* 5.9* -- -- 6.4 -- ALB 3.5* 3.5* < > 2.8* 3.4* -- -- 3.5* -- CA 8.7 8.4* < > 8.3* 8.2* 8.1* -- 8.9 -- TBILI 0.2 0.2 < > 0.4 0.6 -- -- 0.2 -- ALKPHOS 104 127* < > 58 67 -- -- 116* -- GLUC 296* 373* < > 125* 209* 197* -- 187* -- BUN 43* 50* < > 51* 47* 49* -- 48* -- CREAT 2.68* 2.60* < > 2.47* 2.36* 2.59* -- 2.60* -- NA 137 135* < > 137 136 134* -- 135* -- K 4.7 4.8 < > 3.8 3.9 4.6 -- 4.4 -- CHLOR 99 100 < > 101 100 102 -- 101 -- CO2 26 24 < > 23 26 21* -- 22 -- ANION 12 11 < > 13 10 11 -- 12 -- EGFROTH 25* 26* < > 28* 29* 26* -- 26* -- HBA1C 9.4* -- -- -- -- -- 6.8* 6.8* -- < > = values in this interval not displayed. Recent Labs 01/10/23 1044 05/10/23 1059 10/17/23 1613 TG -- -- 215* CHOL -- -- 138 HDL -- -- 40 VLDL -- -- 43* LDL -- -- 55 TCHDL -- -- 3.45 LDLHDL -- -- 1.38 NONHDL -- -- 98 HBA1C 9.4* 6.8* 6.8* HBA0 223 148 148 PAST MEDICAL HISTORY No date: Anemia, unspecified No date: CAD (coronary artery disease) No date: Cardiomyopathy (HCC) No date: Congestive heart failure (HCC) No date: Diabetes mellitus (HCC) No date: Dyslipidemia No date: Essential hypertension No date: Gout No date: H/O heart artery stent No date: Hypothyroidism No date: Kidney stone 01/26/2023: S/P CABG x 4 No date: Sleep apnea PAST SURGICAL HISTORY 01/26/2023: CABG, VEIN, FOUR Comment: 01/26/2023: CABGx4: SULLIVAN to LAD SVG to RPDA/SVG to OM2 /Left Radial to Ramus @ [facility] [place] 06/23/2020: COLONOSCOPY FLX DX W/COLLJ SPEC WHEN PFRMD No date: PAST SURGICAL HISTORY OF Comment: Cardiac stent x 4 FAMILY HISTORY Problem Relation Age of Onset other (passed at age 82) Mother Intersitial Lung Disease Mother Heart Attack Father other (passed at age 53) Father Cancer Paternal Grandfather Diabetes Sister other (valve disease) Sister other (atrial fib) Sister Social History Tobacco Use Smoking status: Never Smokeless tobacco: Never Substance Use Topics Alcohol use: Never Drug use: Never Current Outpatient Medications Medication Sig insulin glargine (LANTUS SOLOSTAR U-100 INSULIN) 100 unit/mL (3 mL) Taking 20 units in the [facility] Blood-Glucose Sensor (FREESTYLE YAZMIN 3 SENSOR) kathleen CHANGE sensor every 14 days. USE FOR CONTINUOUS GLUCOSE MONITORING. MULTIPLE INSULIN INJECTIONS. E11.9 metoprolol succinate ER (TOPROL XL) 50 mg 24 hr tablet Take 1 tablet by mouth two times a day. dapagliflozin propanediol (FARXIGA) 10 mg tablet Take 1 tablet by mouth daily with breakfast. isosorbide dinitrate (ISORDIL) 20 mg tablet Take 0.5 tablets by mouth three times a day. acetaminophen (TYLENOL) 325 mg tablet Take 2 tablets by mouth every 4 hours as needed (mild to moderate pain). senna-docusate (SENNA-S) 8.6-50 mg per tablet Take 1 tablet by mouth two times a day. Continue while on narcotic pain meds &/or as needed thereafter for mild post-op constipation & stool softening. insulin aspart U-100 (NOVOLOG FLEXPEN U-100 INSULIN) 100 unit/mL (3 mL) Inject 9 units with meals. Based on pre-meal blood sugar use following scale to add additional units as needed: 151-200 = 2 units. 201-250 = 4 units. 251-300 = 6 units. 301-350 = 8 units. 351- 400 = 10 units. Insulin Union, Disposable, (BD ULTRA-FINE KENN PEN NEEDLE) 32 gauge x 5/32 Use to inject insulin4 times a day blood sugar diagnostic (TRUE METRIX GLUCOSE TEST STRIP) test strip Use as instructed to check bloodsugar 4 times a day Lancets lancets Use as directed to check blood sugars 4 times a day hydrALAZINE (APRESOLINE) 25 mg tablet 25 mg three times a day. levothyroxine (SYNTHROID) 175 mcg tablet 175 mcg once daily. OTC PRODUCT Stool softner daily rosuvastatin (CRESTOR) 20 mg tablet Take 20 mg by mouth once daily. amLODIPine (NORVASC) 10 mg tablet Take 5 mg by mouth once daily. aspirin, enteric coated (ASPIRIN, ENTERIC COATED) 81 mg EC tablet Take 81 mg by mouth once daily. allopurinol (ZYLOPRIM) 300 mg tablet Take 300 mg by mouth once daily. buPROPion SR (ZYBAN SR; WELLBUTRIN SR) 150 mg 12 hr tablet Take 150 mg by mouth twice daily. No current facility-administered medications for this visit. ALLERGIES Allergen Reactions Lisinopril Swelling REVIEW OF SYSTEMS - POSITIVES IN BOLD GENERAL:No weight loss, malaise or fevers HEENT:Negative for frequent or significant headaches, No changes in hearing or vision, no nose bleeds or other nasal problems NECK:Negative for lumps, goiter, pain and significant neck swelling RESPIRATORY: Negative for cough, hemoptysis, wheezing, COPD, dyspnea or shortness of breath CARDIOVASCULAR: Negative for chest pain, leg swelling, hypertension, CHF or palpitations PHYSICAL EXAMINATION: Pulse (!) 57 Resp 20 Ht 175.3 cm (5' 9) Wt 80.4 kg (177 lb 3.2 oz) SpO2 99% BMI 26.17 kg/m GENERAL: alert and appropriate, in no distress and well-hydrated, well nourished SKIN: no rash noted HEAD: normocephalic, no abnormality or lesion noted EYES: PERRL NECK: full ROM, no cervical LNs noted ACANTHOSIS: none noted EXTREMITIES: normal NEUROLOGIC: no obvious deficit ASSESSMENT/PLAN (E11.9) Controlled type 2 diabetes mellitus without complication, unspecified 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) (primary encounter diagnosis) Comment: CGM DOWNLOADED AND REVIEWED FOR OV RECOMMENDATIONS PER REVIEW as follows: VERY WELL CONTROLLED, needs to balance out basal/prandial insulin LANTUS Inject 14 units once daily NOVOLOG Inject 5 units with breakfast PLUS SS#1 Inject 5 units with lunch PLUS SS#1 Inject 5 units with dinner PLUS SS#1 Sliding Scale Insulin Dosing PRE MEAL BLOOD SUGAR ONLY Sliding Scale 1 (1 unit for every 50 mg/dL > 150 mg/dL) SUPPLEMENTAL INSULIN If Blood Glucose (mg/dL) is < 150 Give 0 units 151-200 Give 1 unit 201-250 Give 2 units 251-300 Give 3 units 301-350 Give 4 units 351-400 Give 5 units >400 Give 6 units, call physician if blood glucose does not improve. Recommended diet: Low carbohydrate and Low saturated fat, low simple sugar, high fiber diet Exercise minimally 150 minutes per week, increase as tolerated. Adequate hydration - 1/2 body wgt in oz of water daily, unless fluid restriction applies. I instructed the patient to monitor blood sugars 4 times per day If blood sugars are persistently high or low, to call our office. Patient to continue to follow up with his PCP and with other consultants regarding his other medical problems. Plan: COMPREHENSIVE METABOLIC PANEL, LIPID PANEL, NONFASTING, ALBUMIN/CREATININE RATIO, URINE, HEMOGLOBIN A1C Monica Hoty CNP [facility] NoteHNO ID: [id number] Author: MONICA HOYT APRN.CNP Service: ? Author Type: Nurse Practitioner Type: Progress Notes Filed: 11/08/2023 10:01 Note Text: OFFICE VISIT PROGRESS NOTE CC Gamaliel Griffin is a 67 year old who presents today for blood sugar review, insulin review, adjust. HPI Diagnosed with diabetes mellitus type 2, ~ 2009 Last endocrine OV 05/10/2023 Some elements copied from my note 05/10/2023 which have been updated where appropriate, and all reflect current medical decision making from date of this visit. HISTORY OF PRESENT ILLNESS; Gamaliel Griffin is a 67 year old MALE is presenting as a new patient to me regarding DM Type 2. He was initially diagnosed with diabetes in ~12-15 years. Sts since having his CGM since () 'changed my life' Modified his diet Lost 50 pounds 6 years ago, started exercising CABG x - Jan 2023 Goes to the gym regularly Went through 3 cardiac rehab, felt that they were 'holding him back' 3 days per week, 3 miles Does report he is only limited by his feet / lower ext pain Sts PCP last checked his A1C in February 6.7% He does have a family history of diabetes mellitus in his Mother. Sister The patient reports the following microvascular complications: nephropathy Gamaliel has no know macrovascular complications of diabetes.. (recent CABG, pt not related) DM Education No Knows how to carb count Yes - saw DM nurse at [facility] 40 grams per meal - DIETARY HISTORY: Breakfast: cereal OR toast or bagel with water or tea and carnation breakfast daily with fruit (apple, oranges, grapes) Lunch fruit (apple or orange) and sandwich deli Dinner cooks, balanced protein/starch/vegetable OR soup rarely eat out or take out Snacks not really, rarely, if does may have saltine crackers OR pretzels Drinks water, tea Exercise: [employer] gym program (3-4 times per week) HPI 11/08/2023 Has nephro, sees at least q 6 mos. Drinks a lot of water Pt manipulates own insulin dosing and recently reduced doses Sts bottoms at night CURRENT DM MEDS pt manipulates own insulin dosing FARXIGA 10 mg 1 tab daily LANTUS 10 NOVOLOG 7-7-7 plus THYROID SYNTHROID 175 mcg 1 tab daily (managed by PCP) SMBG Type of Monitor: Other Frequency of Monitoring: Hook MobileSTYLE YAZMIN CGM times a day Pt NOT SHARED WITH OFFICE Hypoglycemia: no Diet: Low carbohydrate Exercise: as per above DM REVIEW OF SYSTEMS Last Eye Exam : 2022 will see retina specialist soon (reports eye have worsened since CABG) Last Podiatry Exam: Cardiorespiratory: negative, denies chest pain, pressure Claudication: no Dyslipidemia: Yes, controlled on medication High Blood Pressure: Yes, controlled on medication CURRENT LABS Latest Ref Rng 05/10/2023 10/17/2023 Glucose 74 - 99 mg/dL 187 (H) BUN 9 - 24 mg/dL 48 (H) Creatinine 0.73 - 1.22 mg/dL 2.60 (H) Sodium 136 - 144 mmol/L 135 (L) Potassium 3.7 - 5.1 mmol/L 4.4 Chloride 98 - 107 mmol/L 101 CO2 22 - 30 mmol/L 22 Anion Gap 8 - 15 mmol/L 12 eGFR >=60 mL/min/1.73m? 26 (L) Total Cholesterol, Nonfasting <200 mg/dL 138 Triglycerides, Nonfasting <150 mg/dL 215 (H) HDL Cholesterol, Nonfasting >39 mg/dL 40 LDL Cholesterol, Nonfasting <100 mg/dL 55 Non HDL Cholesterol, Nonfasting <130 mg/dL 98 VLDL Cholesterol, Nonfasting <30 mg/dL 43 (H) Total Chol/HDL Ratio, Nonfasting <5.10 mg/dL 3.45 LDL/HDL Ratio, Nonfasting <2.54 mg/dL 1.38 Case Report FINAL DIAGNOSIS Gross description Performing Lab Creatinine, Ur Random (UCRR) 20.0 - 300.0 mg/dL 32.1 Albumin, Urine Random mg/L 536.5 Albumin/Creat Ratio <30 mg/g 1,671 (H) Hemoglobin A1C 4.3 - 5.6 % 6.8 (H) 6.8 (H) Estimated Average Glucose mg/dL 148 148 Legend: (H) High (L) Low Recent Labs 01/10/23 1044 01/25/23 0813 01/26/23 1542 01/31/23 0026 02/01/23 0905 02/02/23 0453 05/10/23 1059 10/17/23 1613 10/17/23 1617 ALT 16 12 < > 11 19 -- -- 14 -- AST 19 12* < > 18 33 -- -- 21 -- UCRR -- -- -- -- -- -- -- -- 32.1 UALBR -- -- -- -- -- -- -- -- 536.5 UALBCR -- -- -- -- -- -- -- -- 1,671* TSH -- 2.050 -- -- -- -- -- -- -- TPROT 6.1* 5.5* < > 5.3* 5.9* -- -- 6.4 -- ALB 3.5* 3.5* < > 2.8* 3.4* -- -- 3.5* -- CA 8.7 8.4* < > 8.3* 8.2* 8.1* -- 8.9 -- TBILI 0.2 0.2 < > 0.4 0.6 -- -- 0.2 -- ALKPHOS 104 127* < > 58 67 -- -- 116* -- GLUC 296* 373* < > 125* 209* 197* -- 187* -- BUN 43* 50* < > 51* 47* 49* -- 48* -- CREAT 2.68* 2.60* < > 2.47* 2.36* 2.59* -- 2.60* -- NA 137 135* < > 137 136 134* -- 135* -- K 4.7 4.8 < > 3.8 3.9 4.6 -- 4.4 -- CHLOR 99 100 < > 101 100 102 -- 101 -- CO2 26 24 < > 23 26 21* -- 22 -- ANION 12 11 < > 13 10 11 -- 12 -- EGFROTH 25* 26* < > 28* 29* 26* -- 26* -- HBA1C 9.4* -- -- -- -- -- 6.8* 6.8* -- < > = values in this interval not displayed. Recent Labs 01/10/23 1044 05/10/23 1059 10/17/23 1613 TG -- -- 215* CHOL -- -- 138 HDL -- -- 40 VLDL -- -- 43* LDL -- -- 55 TCHDL -- -- 3.45 L (more content not included)...[facility]09-10-2024 Nurse Note * Karissa Arana RN - 10/24/2023 8:55 AM EDT Patient has Libre3 glucose monitoring device, Dr Mack aware and says it is acceptable to have post procedure glucose checked with his device. Glucose is 123 at this time. [facility]09-10-[facility] Nurse Note* Karissa Arana RN - 10/24/2023 8:55 AM EDT Patient has Libre3 glucose monitoring device, Dr Mack aware and says it is acceptable to have post procedure glucose checked with his device. Glucose is 123 at this time. * Karissa Arana RN - 10/24/2023 8:13 AM EDT Patient received in phase II via cart in left lateral position, eyes closed but open to verbal stimuli, skin warm and dry, respirations regular and unlabored, abdomen soft and non distended. Denies pain, nausea, or cramping. Resting comfortably on left side. [facility] Note* Discharge Instr - Nursing - Karissa Arana RN - 10/24/2023 8:21 AM EDT The patient received a copy of Colonoscopy discharge instructions that contain information for how to contact the physician who performed the procedure and when to seek medical care. [facility]09-10-2024 Miscellaneous Notes* Discharge Instr - Nursing - Karissa Arana RN - 10/24/2023 8:21 AM EDT The patient received a copy of Colonoscopy discharge instructions that contain information for how to contact the physician who performed the procedure and when to seek medical care. [facility] Nurse Note* Karissa Arana RN - 10/24/2023 8:13 AM EDT Patient received in phase II via cart in left lateral position, eyes closed but open to verbal stimuli, skin warm and dry, respirations regular and unlabored, abdomen soft and non distended. Denies pain, nausea, or cramping. Resting comfortably on left side. [facility]-10-[facility] Attending History and physical note* Carolee Mack MD - 10/24/2023 7:30 AM EDT UPDATED PROCEDURAL SEDATION HISTORY AND PHYSICAL EXAMINATION SERVICE DATE: 10/24/2023 SERVICE TIME: 7:27 PHYSICAL EXAM MUST BE COMPLETED ON ADMISSION PROCEDURE: colonoscopy, possible biopsies Procedure Indications: screening for colon cancer The History and Physical (completed in the past 30 days) has been reviewed and the patient has beenexamined. The contents accurately reflect the patient's condition with the following additions or revisions since the H&P was completed. ASA Class: ASA Class: Patient with mild systemic disease Examination indicates no changes. AIRWAY: Airway Visualization of Uvula: Yes Mouth opening greater than 2 fingerbreadths: Yes Neck Full Range of Motion: Yes LUNGS: Lungs clear to auscultation CARDIAC: Regular rhythm,Regular rate Provisional Diagnosis/Treatment Plan: colonoscopy, possible biopses Sedation Goal: Moderate This H&P can be found in the Electronic Medical Record . SIGNATURE: Carolee Mack MD PATIENT NAME: Gamaliel Griffin DATE: October 24, 2023 TIME: 7:27 AM Source Note - Carolee Mack MD - 10/24/2023 7:30 AM EDT HISTORY AND PHYSICAL Gamaliel Griffin 1955 REFERRING PHYSICIAN: Piedad Han MD CHIEF COMPLAINT: Consult (Colonoscopy consultation. ) HPI: The patient is a 67 year old male referred for endoscopy. Gamaliel notes no history of colon complaints. The patient notes no history of upper GI complaints. Gamaliel has undergone prior endoscopy. The patient had attempted colonoscopy in 2020. He was given a prescription for a atypical preparation and had inadequate preparation. The patient had cardiac bypass surgery in January 2023. He has improved cardiac ejection fraction since that time and is doing well. He exercise and has no shortness of breath or chest pain. He has no family history of colon cancer He was given 5 mg of Versed and 100 mcg of fentanyl at his last attempt The patient is being seen by me today at the request of Dr. Piedad Han MD, MD for my opinion and advice regarding screening colonoscopy. 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 Refer to printed prep instructions from your provider. insulin glargine (LANTUS SOLOSTAR U-100 INSULIN) 100 unit/mL (3 mL) Taking 20 units in the [facility] Blood-Glucose Sensor (FREESTYLE YAZMIN 3 SENSOR) kathleen CHANGE sensor every 14 days. USE FOR CONTINUOUS GLUCOSE MONITORING. MULTIPLE INSULIN INJECTIONS. E11.9 metoprolol succinate ER (TOPROL XL) 50 mg 24 hr tablet Take 1 tablet by mouth two times a day. dapagliflozin propanediol (FARXIGA) 10 mg tablet Take 1 tablet by mouth daily with breakfast. isosorbide dinitrate (ISORDIL) 20 mg tablet Take 0.5 tablets by mouth three times a day. acetaminophen (TYLENOL) 325 mg tablet Take 2 tablets by mouth every 4 hours as needed (mild to moderate pain). senna-docusate (SENNA-S) 8.6-50 mg per tablet Take 1 tablet by mouth two times a day. Continue while on narcotic pain meds &/or as needed thereafter for mild post-op constipation & stool softening. insulin aspart U-100 (NOVOLOG FLEXPEN U-100 INSULIN) 100 unit/mL (3 mL) Inject 9 units with meals. Based on pre-meal blood sugar use following scale to add additional units as needed: 151-200 = 2 units. 201-250 = 4 units. 251-300 = 6 units. 301-350 = 8 units. 351- 400 = 10 units. Insulin Union, Disposable, (BD ULTRA-FINE KENN PEN NEEDLE) 32 gauge x 5/32 Use to inject insulin4 times a day blood sugar diagnostic (TRUE METRIX GLUCOSE TEST STRIP) test strip Use as instructed to check bloodsugar 4 times a day Lancets lancets Use as directed to check blood sugars 4 times a day hydrALAZINE (APRESOLINE) 25 mg tablet 25 mg three times a day. levothyroxine (SYNTHROID) 175 mcg tablet 175 mcg once daily. OTC PRODUCT Stool softner daily rosuvastatin (CRESTOR) 20 mg tablet Take 20 mg by mouth once daily. amLODIPine (NORVASC) 10 mg tablet Take 5 mg by mouth once daily. aspirin, enteric coated (ASPIRIN, ENTERIC COATED) 81 mg EC tablet Take 81 mg by mouth once daily. allopurinol (ZYLOPRIM) 300 mg tablet Take 300 mg by mouth once daily. buPROPion SR (ZYBAN SR; WELLBUTRIN SR) 150 mg 12 hr tablet Take 150 mg by mouth twice daily. No current facility-administered medications for this visit. ALLERGIES: Lisinopril PERSONAL HISTORY: SOCIAL HISTORY Social History Tobacco Use Smoking status: Never Smokeless tobacco: Never Substance Use Topics Alcohol use: Never Drug use: Never FAMILY HISTORY: FAMILY HISTORY FAMILY HISTORY Problem Relation Age of Onset other (passed at age 82) Mother Intersitial Lung Disease Mother Heart Attack Father other (passed at age 53) Father Cancer Paternal Grandfather Diabetes Sister other (valve disease) Sister other (atrial fib) Sister REVIEW OF SYMPTOMS: The review of systems data was entered by the nurse and reviewed by me There are no exam notes on file for this visit. PHYSICAL EXAMINATION: General: The patient is 67 year old male, well nourished, well hydrated in no acute distress. The patient is oriented to time, place, and person. VITALS: Blood pressure 130/64, pulse 63, temperature 36.7 C (98 F), height 175.3 cm (5' 9), dsrqoj33.1 kg (183 lb 3.2 oz), SpO2 98%. Body mass index is 27.05 kg/m . HEENT: Normal cephalic, ataumatic, pupils are equally round, sclera are anicteric, mucous membranesare moist, oropharynx is clear. Neck has no masses, asymmetry or lymphadenopathy. Thyroid is unremarkable. Respiratory: Clear to auscultation and percussion. Normal respiratory excursion and pattern. Cardiac: Examination is regular rate and rhythm. Abdominal exam: Soft, nontender, with no palpable masses. No hepatosplenomegaly. No palpable hernias. Rectal exam: exam deferred Extremities: no clubbing, cyanosis or edema. No adenopathy. Other: LABORATORY VALUES: As Noted RADIOLOGIC STUDIES: As Noted Assessment IMPRESSION: Need for screening colonoscopy PLAN: I plan to perform lower endoscopy. We discussed the risks and benefits of the planned endoscopy. I have informed the patient that complications can occur including failure to complete the endoscopy and perforation. The patient had the opportunity to ask questions concerning the planned endoscopy. My staff has also explained the procedure to the patient in understandable terms and has given the patient printed material concerning the procedure. The patient freely consents to surgery. I plan to use golytely bowel preparation for endoscopy. The patient is instructed for a 2-day GoLytely prep due to her prior failed prep Diagnoses: (Z12.11) Special screening for malignant neoplasms, colon (primary encounter diagnosis) A letter was sent to Dr. Piedad Han MD, MD indicating the above finding for this patient. Return to Clinic: The patient is instructed to follow-up with me after the testing has been completed. Jennifer Smith MD [facility]09-10-2024 History and physical note* Carolee Mack MD - 10/24/2023 7:30 AM EDT HISTORY AND PHYSICAL Gamaliel Griffin 1955 REFERRING PHYSICIAN: Piedad Han MD CHIEF COMPLAINT: Consult (Colonoscopy consultation. ) HPI: The patient is a 67 year old male referred for endoscopy. Gamaliel notes no history of colon complaints. The patient notes no history of upper GI complaints. Gamaliel has undergone prior endoscopy. The patient had attempted colonoscopy in 2020. He was given a prescription for a atypical preparation and had inadequate preparation. The patient had cardiac bypass surgery in January 2023. He has improved cardiac ejection fraction since that time and is doing well. He exercise and has no shortness of breath or chest pain. He has no family history of colon cancer He was given 5 mg of Versed and 100 mcg of fentanyl at his last attempt The patient is being seen by me today at the request of Dr. Piedad Han MD, MD for my opinion and advice regarding screening colonoscopy. 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 Refer to printed prep instructions from your provider. insulin glargine (LANTUS SOLOSTAR U-100 INSULIN) 100 unit/mL (3 mL) Taking 20 units in the moring Blood-Glucose Sensor (FREESTYLE YAZMIN 3 SENSOR) kathleen CHANGE sensor every 14 days. USE FOR CONTINUOUS GLUCOSE MONITORING. MULTIPLE INSULIN INJECTIONS. E11.9 metoprolol succinate ER (TOPROL XL) 50 mg 24 hr tablet Take 1 tablet by mouth two times a day. dapagliflozin propanediol (FARXIGA) 10 mg tablet Take 1 tablet by mouth daily with breakfast. isosorbide dinitrate (ISORDIL) 20 mg tablet Take 0.5 tablets by mouth three times a day. acetaminophen (TYLENOL) 325 mg tablet Take 2 tablets by mouth every 4 hours as needed (mild to moderate pain). senna-docusate (SENNA-S) 8.6-50 mg per tablet Take 1 tablet by mouth two times a day. Continue while on narcotic pain meds &/or as needed thereafter for mild post-op constipation & stool softening. insulin aspart U-100 (NOVOLOG FLEXPEN U-100 INSULIN) 100 unit/mL (3 mL) Inject 9 units with meals. Based on pre-meal blood sugar use following scale to add additional units as needed: 151-200 = 2 units. 201-250 = 4 units. 251-300 = 6 units. 301-350 = 8 units. 351- 400 = 10 units. Insulin Union, Disposable, (BD ULTRA-FINE KENN PEN NEEDLE) 32 gauge x 5/32 Use to inject insulin4 times a day blood sugar diagnostic (TRUE METRIX GLUCOSE TEST STRIP) test strip Use as instructed to check bloodsugar 4 times a day Lancets lancets Use as directed to check blood sugars 4 times a day hydrALAZINE (APRESOLINE) 25 mg tablet 25 mg three times a day. levothyroxine (SYNTHROID) 175 mcg tablet 175 mcg once daily. OTC PRODUCT Stool softner daily rosuvastatin (CRESTOR) 20 mg tablet Take 20 mg by mouth once daily. amLODIPine (NORVASC) 10 mg tablet Take 5 mg by mouth once daily. aspirin, enteric coated (ASPIRIN, ENTERIC COATED) 81 mg EC tablet Take 81 mg by mouth once daily. allopurinol (ZYLOPRIM) 300 mg tablet Take 300 mg by mouth once daily. buPROPion SR (ZYBAN SR; WELLBUTRIN SR) 150 mg 12 hr tablet Take 150 mg by mouth twice daily. No current facility-administered medications for this visit. ALLERGIES: Lisinopril PERSONAL HISTORY: SOCIAL HISTORY Social History Tobacco Use Smoking status: Never Smokeless tobacco: Never Substance Use Topics Alcohol use: Never Drug use: Never FAMILY HISTORY: FAMILY HISTORY FAMILY HISTORY Problem Relation Age of Onset other (passed at age 82) Mother Intersitial Lung Disease Mother Heart Attack Father other (passed at age 53) Father Cancer Paternal Grandfather Diabetes Sister other (valve disease) Sister other (atrial fib) Sister REVIEW OF SYMPTOMS: The review of systems data was entered by the nurse and reviewed by me There are no exam notes on file for this visit. PHYSICAL EXAMINATION: General: The patient is 67 year old male, well nourished, well hydrated in no acute distress. The patient is oriented to time, place, and person. VITALS: Blood pressure 130/64, pulse 63, temperature 36.7 C (98 F), height 175.3 cm (5' 9), gmevue24.1 kg (183 lb 3.2 oz), SpO2 98%. Body mass index is 27.05 kg/m . HEENT: Normal cephalic, ataumatic, pupils are equally round, sclera are anicteric, mucous membranesare moist, oropharynx is clear. Neck has no masses, asymmetry or lymphadenopathy. Thyroid is unremarkable. Respiratory: Clear to auscultation and percussion. Normal respiratory excursion and pattern. Cardiac: Examination is regular rate and rhythm. Abdominal exam: Soft, nontender, with no palpable masses. No hepatosplenomegaly. No palpable hernias. Rectal exam: exam deferred Extremities: no clubbing, cyanosis or edema. No adenopathy. Other: LABORATORY VALUES: As Noted RADIOLOGIC STUDIES: As Noted Assessment IMPRESSION: Need for screening colonoscopy PLAN: I plan to perform lower endoscopy. We discussed the risks and benefits of the planned endoscopy. I have informed the patient that complications can occur including failure to complete the endoscopy and perforation. The patient had the opportunity to ask questions concerning the planned endoscopy. My staff has also explained the procedure to the patient in understandable terms and has given the patient printed material concerning the procedure. The patient freely consents to surgery. I plan to use golytely bowel preparation for endoscopy. The patient is instructed for a 2-day GoLytely prep due to her prior failed prep Diagnoses: (Z12.11) Special screening for malignant neoplasms, colon (primary encounter diagnosis) A letter was sent to Dr. Piedad Han MD, MD indicating the above finding for this patient. Return to Clinic: The patient is instructed to follow-up with me after the testing has been completed. Jennifer Smith MD [facility]09-10-2024 History and physical note* Carolee Mack MD - 10/24/2023 7:30 AM EDT UPDATED PROCEDURAL SEDATION HISTORY AND PHYSICAL EXAMINATION SERVICE DATE: 10/24/2023 SERVICE TIME: 7:27 PHYSICAL EXAM MUST BE COMPLETED ON ADMISSION PROCEDURE: colonoscopy, possible biopsies Procedure Indications: screening for colon cancer The History and Physical (completed in the past 30 days) has been reviewed and the patient has beenexamined. The contents accurately reflect the patient's condition with the following additions or revisions since the H&P was completed. ASA Class: ASA Class: Patient with mild systemic disease Examination indicates no changes. AIRWAY: Airway Visualization of Uvula: Yes Mouth opening greater than 2 fingerbreadths: Yes Neck Full Range of Motion: Yes LUNGS: Lungs clear to auscultation CARDIAC: Regular rhythm,Regular rate Provisional Diagnosis/Treatment Plan: colonoscopy, possible biopses Sedation Goal: Moderate This H&P can be found in the Electronic Medical Record . SIGNATURE: Carolee Mack MD PATIENT NAME: Gamaliel Griffin DATE: October 24, 2023 TIME: 7:27 AM Source Note - Carolee Mack MD - 10/24/2023 7:30 AM EDT HISTORY AND PHYSICAL Gamaliel Griffin 1955 REFERRING PHYSICIAN: Piedad Han MD CHIEF COMPLAINT: Consult (Colonoscopy consultation. ) HPI: The patient is a 67 year old male referred for endoscopy. Gamaliel notes no history of colon complaints. The patient notes no history of upper GI complaints. Gamaliel has undergone prior endoscopy. The patient had attempted colonoscopy in 2020. He was given a prescription for a atypical preparation and had inadequate preparation. The patient had cardiac bypass surgery in January 2023. He has improved cardiac ejection fraction since that time and is doing well. He exercise and has no shortness of breath or chest pain. He has no family history of colon cancer He was given 5 mg of Versed and 100 mcg of fentanyl at his last attempt The patient is being seen by me today at the request of Dr. Piedad Han MD, MD for my opinion and advice regarding screening colonoscopy. 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 Refer to printed prep instructions from your provider. insulin glargine (LANTUS SOLOSTAR U-100 INSULIN) 100 unit/mL (3 mL) Taking 20 units in the [facility] Blood-Glucose Sensor (FREESTYLE YAZMIN 3 SENSOR) kathleen CHANGE sensor every 14 days. USE FOR CONTINUOUS GLUCOSE MONITORING. MULTIPLE INSULIN INJECTIONS. E11.9 metoprolol succinate ER (TOPROL XL) 50 mg 24 hr tablet Take 1 tablet by mouth two times a day. dapagliflozin propanediol (FARXIGA) 10 mg tablet Take 1 tablet by mouth daily with breakfast. isosorbide dinitrate (ISORDIL) 20 mg tablet Take 0.5 tablets by mouth three times a day. acetaminophen (TYLENOL) 325 mg tablet Take 2 tablets by mouth every 4 hours as needed (mild to moderate pain). senna-docusate (SENNA-S) 8.6-50 mg per tablet Take 1 tablet by mouth two times a day. Continue while on narcotic pain meds &/or as needed thereafter for mild post-op constipation & stool softening. insulin aspart U-100 (NOVOLOG FLEXPEN U-100 INSULIN) 100 unit/mL (3 mL) Inject 9 units with meals. Based on pre-meal blood sugar use following scale to add additional units as needed: 151-200 = 2 units. 201-250 = 4 units. 251-300 = 6 units. 301-350 = 8 units. 351- 400 = 10 units. Insulin Union, Disposable, (BD ULTRA-FINE KENN PEN NEEDLE) 32 gauge x 5/32 Use to inject insulin4 times a day blood sugar diagnostic (TRUE METRIX GLUCOSE TEST STRIP) test strip Use as instructed to check bloodsugar 4 times a day Lancets lancets Use as directed to check blood sugars 4 times a day hydrALAZINE (APRESOLINE) 25 mg tablet 25 mg three times a day. levothyroxine (SYNTHROID) 175 mcg tablet 175 mcg once daily. OTC PRODUCT Stool softner daily rosuvastatin (CRESTOR) 20 mg tablet Take 20 mg by mouth once daily. amLODIPine (NORVASC) 10 mg tablet Take 5 mg by mouth once daily. aspirin, enteric coated (ASPIRIN, ENTERIC COATED) 81 mg EC tablet Take 81 mg by mouth once daily. allopurinol (ZYLOPRIM) 300 mg tablet Take 300 mg by mouth once daily. buPROPion SR (ZYBAN SR; WELLBUTRIN SR) 150 mg 12 hr tablet Take 150 mg by mouth twice daily. No current facility-administered medications for this visit. ALLERGIES: Lisinopril PERSONAL HISTORY: SOCIAL HISTORY Social History Tobacco Use Smoking status: Never Smokeless tobacco: Never Substance Use Topics Alcohol use: Never Drug use: Never FAMILY HISTORY: FAMILY HISTORY FAMILY HISTORY Problem Relation Age of Onset other (passed at age 82) Mother Intersitial Lung Disease Mother Heart Attack Father other (passed at age 53) Father Cancer Paternal Grandfather Diabetes Sister other (valve disease) Sister other (atrial fib) Sister REVIEW OF SYMPTOMS: The review of systems data was entered by the nurse and reviewed by me There are no exam notes on file for this visit. PHYSICAL EXAMINATION: General: The patient is 67 year old male, well nourished, well hydrated in no acute distress. The patient is oriented to time, place, and person. VITALS: Blood pressure 130/64, pulse 63, temperature 36.7 C (98 F), height 175.3 cm (5' 9), hgreve67.1 kg (183 lb 3.2 oz), SpO2 98%. Body mass index is 27.05 kg/m . HEENT: Normal cephalic, ataumatic, pupils are equally round, sclera are anicteric, mucous membranesare moist, oropharynx is clear. Neck has no masses, asymmetry or lymphadenopathy. Thyroid is unremarkable. Respiratory: Clear to auscultation and percussion. Normal respiratory excursion and pattern. Cardiac: Examination is regular rate and rhythm. Abdominal exam: Soft, nontender, with no palpable masses. No hepatosplenomegaly. No palpable hernias. Rectal exam: exam deferred Extremities: no clubbing, cyanosis or edema. No adenopathy. Other: LABORATORY VALUES: As Noted RADIOLOGIC STUDIES: As Noted Assessment IMPRESSION: Need for screening colonoscopy PLAN: I plan to perform lower endoscopy. We discussed the risks and benefits of the planned endoscopy. I have informed the patient that complications can occur including failure to complete the endoscopy and perforation. The patient had the opportunity to ask questions concerning the planned endoscopy. My staff has also explained the procedure to the patient in understandable terms and has given the patient printed material concerning the procedure. The patient freely consents to surgery. I plan to use golytely bowel preparation for endoscopy. The patient is instructed for a 2-day GoLytely prep due to her prior failed prep Diagnoses: (Z12.11) Special screening for malignant neoplasms, colon (primary encounter diagnosis) A letter was sent to Dr. Piedad Han MD, MD indicating the above finding for this patient. Return to Clinic: The patient is instructed to follow-up with me after the testing has been completed. Jennifer Smith MD * Carolee Mack MD - 10/24/2023 7:30 AM EDT HISTORY AND PHYSICAL Gamaliel Griffin 1955 REFERRING PHYSICIAN: Piedad Han MD CHIEF COMPLAINT: Consult (Colonoscopy consultation. ) HPI: The patient is a 67 year old male referred for endoscopy. Gamaliel notes no history of colon complaints. The patient notes no history of upper GI complaints. Gamaliel has undergone prior endoscopy. The patient had attempted colonoscopy in 2020. He was given a prescription for a atypical preparation and had inadequate preparation. The patient had cardiac bypass surgery in January 2023. He has improved cardiac ejection fraction since that time and is doing well. He exercise and has no shortness of breath or chest pain. He has no family history of colon cancer He was given 5 mg of Versed and 100 mcg of fentanyl at his last attempt The patient is being seen by me today at the request of Dr. Piedad Han MD, MD for my opinion and advice regarding screening colonoscopy. 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 Refer to printed prep instructions from your provider. insulin glargine (LANTUS SOLOSTAR U-100 INSULIN) 100 unit/mL (3 mL) Taking [facility] units in the [facility] Blood-Glucose Sensor (FREESTYLE YAZMIN 3 SENSOR) kathleen CHANGE sensor every 14 days. USE FOR CONTINUOUS GLUCOSE MONITORING. MULTIPLE INSULIN INJECTIONS. E11.9 metoprolol succinate ER (TOPROL XL) 50 mg 24 hr tablet Take 1 tablet by mouth two times a day. dapagliflozin propanediol (FARXIGA) 10 mg tablet Take 1 tablet by mouth daily with breakfast. isosorbide dinitrate (ISORDIL) 20 mg tablet Take 0.5 tablets by mouth three times a day. acetaminophen (TYLENOL) 325 mg tablet Take 2 tablets by mouth every 4 hours as needed (mild to moderate pain). senna-docusate (SENNA-S) 8.6-50 mg per tablet Take 1 tablet by mouth two times a day. Continue while on narcotic pain meds &/or as needed thereafter for mild post-op constipation & stool softening. insulin aspart U-100 (NOVOLOG FLEXPEN U-100 INSULIN) 100 unit/mL (3 mL) Inject 9 units with meals. Based on pre-meal blood sugar use following scale to add additional units as needed: 151-200 = 2 units. 201-250 = 4 units. 251-300 = 6 units. 301-350 = 8 units. 351- 400 = 10 units. Insulin Union, Disposable, (BD ULTRA-FINE KENN PEN NEEDLE) 32 gauge x 5/32 Use to inject insulin4 times a day blood sugar diagnostic (TRUE METRIX GLUCOSE TEST STRIP) test strip Use as instructed to check bloodsugar 4 times a day Lancets lancets Use as directed to check blood sugars 4 times a day hydrALAZINE (APRESOLINE) 25 mg tablet 25 mg three times a day. levothyroxine (SYNTHROID) 175 mcg tablet 175 mcg once daily. OTC PRODUCT Stool softner daily rosuvastatin (CRESTOR) 20 mg tablet Take 20 mg by mouth once daily. amLODIPine (NORVASC) 10 mg tablet Take 5 mg by mouth once daily. aspirin, enteric coated (ASPIRIN, ENTERIC COATED) 81 mg EC tablet Take 81 mg by mouth once daily. allopurinol (ZYLOPRIM) 300 mg tablet Take 300 mg by mouth once daily. buPROPion SR (ZYBAN SR; WELLBUTRIN SR) 150 mg 12 hr tablet Take 150 mg by mouth twice daily. No current facility-administered medications for this visit. ALLERGIES: Lisinopril PERSONAL HISTORY: SOCIAL HISTORY Social History Tobacco Use Smoking status: Never Smokeless tobacco: Never Substance Use Topics Alcohol use: Never Drug use: Never FAMILY HISTORY: FAMILY HISTORY FAMILY HISTORY Problem Relation Age of Onset other (passed at age 82) Mother Intersitial Lung Disease Mother Heart Attack Father other (passed at age 53) Father Cancer Paternal Grandfather Diabetes Sister other (valve disease) Sister other (atrial fib) Sister REVIEW OF SYMPTOMS: The review of systems data was entered by the nurse and reviewed by me There are no exam notes on file for this visit. PHYSICAL EXAMINATION: General: The patient is 67 year old male, well nourished, well hydrated in no acute distress. The patient is oriented to time, place, and person. VITALS: Blood pressure 130/64, pulse 63, temperature 36.7 C (98 F), height 175.3 cm (5' 9), .1 kg (183 lb 3.2 oz), SpO2 98%. Body mass index is 27.05 kg/m . HEENT: Normal cephalic, ataumatic, pupils are equally round, sclera are anicteric, mucous membranesare moist, oropharynx is clear. Neck has no masses, asymmetry or lymphadenopathy. Thyroid is unremarkable. Respiratory: Clear to auscultation and percussion. Normal respiratory excursion and pattern. Cardiac: Examination is regular rate and rhythm. Abdominal exam: Soft, nontender, with no palpable masses. No hepatosplenomegaly. No palpable hernias. Rectal exam: exam deferred Extremities: no clubbing, cyanosis or edema. No adenopathy. Other: LABORATORY VALUES: As Noted RADIOLOGIC STUDIES: As Noted Assessment IMPRESSION: Need for screening colonoscopy PLAN: I plan to perform lower endoscopy. We discussed the risks and benefits of the planned endoscopy. I have informed the patient that complications can occur including failure to complete the endoscopy and perforation. The patient had the opportunity to ask questions concerning the planned endoscopy. My staff has also explained the procedure to the patient in understandable terms and has given the patient printed material concerning the procedure. The patient freely consents to surgery. I plan to use golytely bowel preparation for endoscopy. The patient is instructed for a 2-day GoLytely prep due to her prior failed prep Diagnoses: (Z12.11) Special screening for malignant neoplasms, colon (primary encounter diagnosis) A letter was sent to Dr. Piedad Han MD, MD indicating the above finding for this patient. Return to Clinic: The patient is instructed to follow-up with me after the testing has been completed. Jennifer Smith MD [facility] History of Present illness Narrative* Jennifer Smith MD - 08/04/2023 9:10 AM EDT HISTORY AND PHYSICAL Gamaliel Griffin 1955 REFERRING PHYSICIAN: Piedad Han MD CHIEF COMPLAINT: Consult (Colonoscopy consultation. ) HPI: The patient is a 67 year old male referred for endoscopy. Gamaliel notes no history of colon complaints. The patient notes no history of upper GI complaints. Gamaliel has undergone prior endoscopy. The patient had attempted colonoscopy in 2020. He was given a prescription for a atypical preparation and had inadequate preparation. The patient had cardiac bypass surgery in January 2023. He has improved cardiac ejection fraction since that time and is doing well. He exercise and has no shortness of breath or chest pain. He has no family history of colon cancer He was given 5 mg of Versed and 100 mcg of fentanyl at his last attempt The patient is being seen by me today at the request of Dr. Piedad Han MD, MD for my opinion and advice regarding screening colonoscopy. PAST MEDICAL HISTORY Diagnosis Date Anemia, unspecified CAD (coronary artery disease) Cardiomyopathy (HCC) Congestive heart failure (HCC) Diabetes mellitus (HCC) Dyslipidemia Essential hypertension Gout H/O heart artery stent Hypothyroidism Kidney stone S/P CABG x 4 01/26/2023 Sleep apnea PAST SURGICAL HISTORY Procedure Laterality Date CABG, VEIN, FOUR 01/26/2023 01/26/2023: CABGx4: SULLIVAN to LAD SVG to RPDA/SVG to OM2 /Left Radial to Ramus @ [facility] COLONOSCOPY FLX DX W/COLLJ SPEC WHEN PFRMD 06/23/2020 PAST SURGICAL HISTORY OF Cardiac stent x 4 Current Outpatient Medications Medication Sig peg 3350-Electrolytes (GOLYTELY) 236-22.74-6.74 -5.86 gram suspension Take 4,000 mL by mouth one time only for 1 dose. Refer to printed prep instructions from your provider. insulin glargine (LANTUS SOLOSTAR U-100 INSULIN) 100 unit/mL (3 mL) Taking [facility] units in the [facility] Blood-Glucose Sensor (FREESTYLE YAZMIN 3 SENSOR) kathleen CHANGE sensor every 14 days. USE FOR CONTINUOUS GLUCOSE MONITORING. MULTIPLE INSULIN INJECTIONS. E11.9 metoprolol succinate ER (TOPROL XL) 50 mg 24 hr tablet Take 1 tablet by mouth two times a day. dapagliflozin propanediol (FARXIGA) 10 mg tablet Take 1 tablet by mouth daily with breakfast. isosorbide dinitrate (ISORDIL) 20 mg tablet Take 0.5 tablets by mouth three times a day. acetaminophen (TYLENOL) 325 mg tablet Take 2 tablets by mouth every 4 hours as needed (mild to moderate pain). senna-docusate (SENNA-S) 8.6-50 mg per tablet Take 1 tablet by mouth two times a day. Continue while on narcotic pain meds &/or as needed thereafter for mild post-op constipation & stool softening. insulin aspart U-100 (NOVOLOG FLEXPEN U-100 INSULIN) 100 unit/mL (3 mL) Inject 9 units with meals. Based on pre-meal blood sugar use following scale to add additional units as needed: 151-200 = 2 units. 201-250 = 4 units. 251-300 = 6 units. 301-350 = 8 units. 351- 400 = 10 units. Insulin Union, Disposable, (BD ULTRA-FINE KENN PEN NEEDLE) 32 gauge x 5/32 Use to inject insulin4 times a day blood sugar diagnostic (TRUE METRIX GLUCOSE TEST STRIP) test strip Use as instructed to check bloodsugar 4 times a day Lancets lancets Use as directed to check blood sugars 4 times a day hydrALAZINE (APRESOLINE) 25 mg tablet 25 mg three times a day. levothyroxine (SYNTHROID) 175 mcg tablet 175 mcg once daily. OTC PRODUCT Stool softner daily rosuvastatin (CRESTOR) 20 mg tablet Take 20 mg by mouth once daily. amLODIPine (NORVASC) 10 mg tablet Take 5 mg by mouth once daily. aspirin, enteric coated (ASPIRIN, ENTERIC COATED) 81 mg EC tablet Take 81 mg by mouth once daily. allopurinol (ZYLOPRIM) 300 mg tablet Take 300 mg by mouth once daily. buPROPion SR (ZYBAN SR; WELLBUTRIN SR) 150 mg 12 hr tablet Take 150 mg by mouth twice daily. No current facility-administered medications for this visit. ALLERGIES: Lisinopril PERSONAL HISTORY: Social History Tobacco Use Smoking status: Never Smokeless tobacco: Never Substance Use Topics Alcohol use: Never Drug use: Never FAMILY HISTORY: FAMILY HISTORY Problem Relation Age of Onset other (passed at age 82) Mother Intersitial Lung Disease Mother Heart Attack Father other (passed at age 53) Father Cancer Paternal Grandfather Diabetes Sister other (valve disease) Sister other (atrial fib) Sister REVIEW OF SYMPTOMS: The review of systems data was entered by the nurse and reviewed by me There are no exam notes on file for this visit. PHYSICAL EXAMINATION: General: The patient is 67 year old male, well nourished, well hydrated in no acute distress. The patient is oriented to time, place, and person. VITALS: Blood pressure 130/64, pulse 63, temperature 36.7 C (98 F), height 175.3 cm (5' 9), jxbzbo62.1 kg (183 lb 3.2 oz), SpO2 98%. Body mass index is 27.05 kg/m . HEENT: Normal cephalic, ataumatic, pupils are equally round, sclera are anicteric, mucous membranesare moist, oropharynx is clear. Neck has no masses, asymmetry or lymphadenopathy. Thyroid is unremarkable. Respiratory: Clear to auscultation and percussion. Normal respiratory excursion and pattern. Cardiac: Examination is regular rate and rhythm. Abdominal exam: Soft, nontender, with no palpable masses. No hepatosplenomegaly. No palpable hernias. Rectal exam: exam deferred Extremities: no clubbing, cyanosis or edema. No adenopathy. Other: LABORATORY VALUES: As Noted RADIOLOGIC STUDIES: As Noted Assessment IMPRESSION: Need for screening colonoscopy PLAN: I plan to perform lower endoscopy. We discussed the risks and benefits of the planned endoscopy. I have informed the patient that complications can occur including failure to complete the endoscopy and perforation. The patient had the opportunity to ask questions concerning the planned endoscopy. My staff has also explained the procedure to the patient in understandable terms and has given the patient printed material concerning the procedure. The patient freely consents to surgery. I plan to use golytely bowel preparation for endoscopy. The patient is instructed for a 2-day GoLytely prep due to her prior failed prep Diagnoses: (Z12.11) Special screening for malignant neoplasms, colon (primary encounter diagnosis) A letter was sent to Dr. Piedad Han MD, MD indicating the above finding for this patient. Return to Clinic: The patient is instructed to follow-up with me after the testing has been completed. Jennifer Smith MD documented [facility] Instructions* Patient Instructions* Jennifer Smith MD - 08/04/2023 8:59 AM EDT Images from the original note were not included. Bowel Preparation Instructions for: Golytely, Nulytely, Trilyte or Colyte (polyethylene glycol 3350and electrolytes) IF YOU DO NOT FOLLOW THESE DIRECTIONS, YOUR COLONOSCOPY WILL BE CANCELLED. Wren Instructions: Your bowel must be empty so that your doctor can clearly view your colon. Follow all of the instructions in this handout EXACTLY as they are written. Do NOT eat any solid food the ENTIRE day before your colonoscopy. Drink only clear liquids. Buy your bowel preparation at least 5 days before your colonoscopy. TRANSPORTATION on the Day of Your Exam A responsible person MUST be present with you at Check In prior to your colonoscopy and REMAIN in the endoscopy area until you are discharged. You are NOT ALLOWED to drive, take a taxi or bus, or leave the Endoscopy Center ALONE. If you do not have a responsible airport driver (family member or friend) with you to take you home, your exam cannot be done with sedation and will be cancelled. Please bring a list of all of your current medications, including any Over-the Counter medications with you. Medications If you take insulin, diabetic medications or blood thinners such as Coumadin (warfarin), Plavix (clopidogrel), Ticlid (ticlopidine hydrochloride), Agrylin (anagrelide), Xarelto (Rivaroxaban), Pradaxa(Dabigatran), Eliquis (Apixaban), and Effient (Prasugrel). You MUST call the doctors who orders those medicines for instructions on altering the dosage before your colonoscopy. All other medications should be taken the day of the exam with a sip of water including ASPIRIN. Five (5) Days Before Your Colonoscopy Do NOT take medicines that stop diarrhea - such as Imodium, Kaopectate, or Pepto Bismol. Do NOT take fiber supplements - such as Metamucil, Citrucel, or Perdiem. Do NOT take products that contain iron - such as multi-vitamins (the label lists what is in the products). Do NOT take Vitamin E. Buy the prescription bowel preparation solution at your local pharmacy or drugstore pharmacy. 1 01/2019 Bowel Preparation Instructions for: Golytely, Nulytely, Trilyte or Colyte (polyethylene glycol 3350and electrolytes) Three (3) Days Before Your Colonoscopy Do NOT eat high-fiber foods - such as popcorn, beans, seeds (flax, sunflower, quinoa), multigrain bread, nuts, salad/vegetables, or fresh and dried fruit. One (1) Day Before Your Colonoscopy Only drink clear liquids the ENTIRE DAY before your colonoscopy. Do NOT eat any solid foods. Drink at least 8 ounces of clear liquids every hour after waking up. The clear liquids you can drink include: Clear Liquid (NO RED LIQUIDS) DO NOT DRINK Gatorade, Pedialyte or Powerade Clear broth or bouillon Coffee or tea (no milk or non-dairy creamer) Carbonated and non-carbonated soft drinks Aman-Aid or other fruit flavored drinks Strained fruit juices (no pulp) Jell-O, popsicles, hard candy Water Alcohol Milk or non-dairy creamers Noodles or vegetables in soup Juice with pulp Liquid you cannot see through Do not use tobacco/vaping products The bowel preparation solution will be consumed in two parts. Mix the solution the evening before your colonoscopy and refrigerate before drinking. You may add the flavor pack that came with the bowel preparation. Do NOT add ice, sugar or any other flavorings to the solution. Part 1 At 6:00 PM - 2 Evenings before your colonoscopy Drink an 8-oz glass of bowel preparation every 10 minutes for half the jug . Part 2 At 6:00 PM - Evening before your colonoscopy Drink an 8-oz glass of bowel preparation every 10 minutes for a total of 8 glasses. You may continue to drink clear liquids until midnight. 2 01/2019 documented in this encounterCore[facility]06-[facility] History of Present illness Narrative* Rohini Cody - 08/01/2023 1:20 PM EDT QOL Call Tracking Documentation Follow-Up Type: Phone Call Call Attempt: 1st Attempt Call Status: Left Message documented in this encounterCorey Hospital05-16-[facility]24 Telephone encounter Note * Telephone Encounter - Patrick Mattson RN - 06/29/2023 4:16 PM EDT [facility] 06/28/23 Dr. Michael 2. Hypertension. Patient is somewhat confused on his current medications this morning and will be messaging me the exact dosages and will fine-tune this medication. He is having some occasional hypotensive symptoms and most likely will be stopping the isosorbide and hydralazine and simplifying his metoprolol to once a day. He is having some lower extremity edema secondary to venous insufficiency after his venous harvesting of both legs and amlodipine. [facility] Miscellaneous Notes* Telephone Encounter - Patrick Mattson RN - 06/29/2023 4:16 PM EDT [facility] 06/28/23 Dr. Michael 2. Hypertension. Patient is somewhat confused on his current medications this morning and will be messaging me the exact dosages and will fine-tune this medication. He is having some occasional hypotensive symptoms and most likely will be stopping the isosorbide and hydralazine and simplifying his metoprolol to once a day. He is having some lower extremity edema secondary to venous insufficiency after his venous harvesting of both legs and amlodipine. documented in this encounterCorey Hospital05-15-2024 History of Present illness Narrative* Yessenia Oconnor DO - 06/28/2023 9:46 AM EDT Heart [facility] V[facility] Department of Cardiovascular Medicine SE[facility] OUTPATIENT VISIT DATE June 28, 2023 OUTPATIENT VISIT TYPE NEW PATIENT Name: Gamaliel Griffin : 1955 Date: June 28, 2023 PRIMARY CARE PHYSICIAN: MD John Menendez [facility] [address] [id number] REFERRING PHYSICIAN: No referring provider defined for this encounter. CHIEF COMPLAINT: Patient presents with: CARD New Patient Consult: Consult to Cardio - [facility]/09/23 [facility]02[facility]23 - CAD 01/26/2023: CABGx4: SULLIVAN to LAD SVG to RPDA/SVG to OM2 /Left Radial to Ramus Pt doing very well. Exercises daily with gym equipments and walking. No cardiac concerns. IMPRESSION / PLAN: 1. Coronary artery disease status post coronary bypass grafting x 4 on January 26, 2023 [facility] with a SULLIVAN to the LAD, SVG to the PDA, SVG to OM 2 and left radial artery to the ramus. Patient is doing very well from a cardiac standpoint with no evidence of anginal symptoms. We discussed short andlong-term prognosis and secondary prevention measures. He is now fully recovered performing all of his activities without limitations. 2. Ischemic cardiomyopathy with an ejection fraction of 40%. Patient had an echocardiogram on 2023 with an improved ejection fraction of 40% from 29% in December 2022. I will continue to follow with periodic echocardiograms and maximize his heart failure medications. He is unable to take [place]/ARB and is on hydralazine and nitroglycerin combination. 2. Hypertension. Patient is somewhat confused on his current medications this morning and will be messaging me the exact dosages and will fine-tune this medication. He is having some occasional hypotensive symptoms and most likely will be stopping the isosorbide and hydralazine and simplifying his metoprolol to once a day. He is having some lower extremity edema secondary to venous insufficiency after his venous harvesting of both legs and amlodipine. 3. Hyperlipidemia. Recommended a goal LDL of 50 and will be obtaining his labs from his family physician on a regular basis. 4. Moderate chronic renal sufficiency with a baseline creatinine approximately 2.5. Patient is followed closely by nephrology. Follow Up Instructions No follow-ups on file. ORDERS FOR TODAY'S VISIT: No orders found for this visit on 06/28/23. HISTORY OF PRESENT ILLNESS: Gamaliel Griffin is an 67 year old male with a past history of hypertension, hyperlipidemia, moderate renal insufficiency and recent findings of coronary artery disease requiring CABG at [facility] in January 2023 and presents today for continuation of cardiovascular care. He is doing very well froma cardiac standpoint with no complaints of chest pain, significant exertional shortness of breath, palpitations, syncope or near syncope. He does have some lower extremity edema left greater than right. He wants to discuss current medications and short and long-term prognosis and strategies for secondary prevention. PAST MEDICAL HISTORY Diagnosis Date Anemia, unspecified CAD (coronary artery disease) Cardiomyopathy (HCC) Congestive heart failure (HCC) Diabetes mellitus (HCC) Dyslipidemia Essential hypertension Gout H/O heart artery stent Hypothyroidism Kidney stone S/P CABG x 4 01/26/2023 Sleep apnea PAST SURGICAL HISTORY Procedure Laterality Date CABG, VEIN, FOUR 01/26/2023 01/26/2023: CABGx4: SULLIVAN to LAD SVG to RPDA/SVG to OM2 /Left Radial to Ramus @ [facility] COLONOSCOPY FLX DX W/COLLJ SPEC WHEN PFRMD 06/23/2020 PAST SURGICAL HISTORY OF Cardiac stent x 4 SOCIAL HISTORY Social History Tobacco Use Smoking status: Never Smokeless tobacco: Never Substance Use Topics Alcohol use: Never Drug use: Never FAMILY HISTORY Problem Relation Age of Onset other (passed at age 82) Mother Intersitial Lung Disease Mother Heart Attack Father other (passed at age 53) Father Cancer Paternal Grandfather Diabetes Sister other (valve disease) Sister other (atrial fib) Sister ALLERGIES: ALLERGIES Allergen Reactions Lisinopril Swelling MEDICATIONS: insulin glargine (LANTUS SOLOSTAR U-100 INSULIN) 100 unit/mL (3 mL) Taking 20 units in the [facility] Blood-Glucose Sensor (FREESTYLE YAZMIN 3 SENSOR) kathleen CHANGE sensor every 14 days. USE FOR CONTINUOUS GLUCOSE MONITORING. MULTIPLE INSULIN INJECTIONS. E11.9 metoprolol succinate ER (TOPROL XL) 50 mg 24 hr tablet Take 1 tablet by mouth two times a day. dapagliflozin propanediol (FARXIGA) 10 mg tablet Take 1 tablet by mouth daily with breakfast. isosorbide dinitrate (ISORDIL) 20 mg tablet Take 0.5 tablets by mouth three times a day. acetaminophen (TYLENOL) 325 mg tablet Take 2 tablets by mouth every 4 hours as needed (mild to moderate pain). senna-docusate (SENNA-S) 8.6-50 mg per tablet Take 1 tablet by mouth two times a day. Continue while on narcotic pain meds &/or as needed thereafter for mild post-op constipation & stool softening. insulin aspart U-100 (NOVOLOG FLEXPEN U-100 INSULIN) 100 unit/mL (3 mL) Inject 9 units with meals. Based on pre-meal blood sugar use following scale to add additional units as needed: 151-200 = 2 units. 201-250 = 4 units. 251-300 = 6 units. 301-350 = 8 units. 351- 400 = 10 units. Insulin Union, Disposable, (BD ULTRA-FINE KENN PEN NEEDLE) 32 gauge x 5/32 Use to inject insulin4 times a day blood sugar diagnostic (TRUE METRIX GLUCOSE TEST STRIP) test strip Use as instructed to check bloodsugar 4 times a day Lancets lancets Use as directed to check blood sugars 4 times a day hydrALAZINE (APRESOLINE) 25 mg tablet 25 mg three times a day. levothyroxine (SYNTHROID) 175 mcg tablet 175 mcg once daily. OTC PRODUCT Stool softner daily rosuvastatin (CRESTOR) 20 mg tablet Take 20 mg by mouth once daily. amLODIPine (NORVASC) 10 mg tablet Take 5 mg by mouth once daily. aspirin, enteric coated (ASPIRIN, ENTERIC COATED) 81 mg EC tablet Take 81 mg by mouth once daily. allopurinol (ZYLOPRIM) 300 mg tablet Take 300 mg by mouth once daily. buPROPion SR (ZYBAN SR; WELLBUTRIN SR) 150 mg 12 hr tablet Take 150 mg by mouth twice daily. REVIEW OF SYSTEMS: GENERAL: Negative for: Weight loss or gain, Fever or Chills NECK: Negative for: Swelling, Pain, Stiffness RESPIRATORY: Negative for: Cough, Blood in Sputum GASTROINTESTINAL: Negative for: Trouble swallowing, Heartburn, Change in bowel habits, Blood in stool, Dark black stools MUSCULOSKELETAL: Negative for: Severe Muscle or joint pain, Stiffness , Joint swelling NEUROLOGIC/PSYCHIATRIC: Negative for: Paralysis, Numbness, Tingling, Tremor SKIN: Negative for: Rashes, Itching HEMATOLOGICAL/LYMPHATIC: Negative for: Easy bruising , Easy bleeding ENDOCRINE: Negative for: Heat or cold intolerance, Excessive sweating, Frequent urination All other review of systems, per history of present illness. PHYSICAL EXAMINATION: Ht 175.3 cm (5' 9) Wt 85.8 kg (189 lb 2.5 oz) BMI 27.93 kg/m Last 2 Encounter Wt Readings: Date: Wt: 06/28/2023 85.8 kg (189 lb 2.5 oz) 05/10/2023 84.4 kg (186 lb) General: Well appearing, in no acute distress. Skin: No clubbing, no cyanosis. Eyes: Extra ocular movements intact Oropharynx: No gross abnormalities Neck: No jugular venous distention, no carotid bruits, carotids have a normal upstroke, no palpablethyromegaly. Lungs: Clear to auscultation bilaterally, no wheezing or rhonchi. Heart: Regular rhythm, PMI not displaced, S1, S2, no S3, no S4, no murmur. Chest: Sternum is intact and scars are well-healed. Abdomen: Soft, nontender, bowel sounds normal, no palpable organomegaly, no bruits. Extremities: +1 bilateral edema left greater than right, +2 distal pulses bilaterally. Left radial site is well-healed, saphenous vein graft harvesting site is well-healed Neuro: Oriented to person, place and time, alert, cooperative. CARDIOVASCULAR MEDICINE TESTING: I have personally reviewed No Cardiovascular testing perfomed today. Yessenia Oconnor DO, [facility] Staff Linux Administrator Yessenia and Melva Chou Dept. of Cardiovascular Medicine Heart, Vascular and Thoracic [facility], [facility] This document was generated using the assistance of voice recognition software. If there are any errors of spelling, grammar, syntax or meaning, please feel free to contact me directly at anytime. documented in this encounterCorey Hospital04-08-2024 Miscellaneous Notes* Telephone Encounter - Cielo Urbano MA - 05/22/2023 10:57 AM EDT Revel Touch message was sent back to the patient. documented in this encounterCorey Hospital03-27-2024 Miscellaneous Notes* Addendum Note - Monica Hoyt APRN.CNP - 05/10/2023 10:46 AM EDTAddended by: MONICA HOYT on: 05/10/2023 10:46 AM Modules accepted: Orders documented in this encounterCorey Hospital03-27-2024 History of Present illness Narrative* Monica Hoyt APRN.CNP - 05/10/2023 10:15 AM EDT NEW CONSULT OFFICE PROGRESS NOTE Reason for Consultation: DM Type 2 Referring Physician: SELF My final recommendations will be communicated back to the requesting physician by way of shared Medical record or letter via US mail. HISTORY OF PRESENT ILLNESS; Gamaliel Griffin is a 67 year old MALE is presenting as a new patient to me regarding DM Type 2. He was initially diagnosed with diabetes in ~12-15 years. Sts since having his CGM since () 'changed my life' Modified his diet Lost 50 pounds 6 years ago, started exercising CABG x - Jan 2023 Goes to the gym regularly Went through 3 cardiac rehab, felt that they were 'holding him back' 3 days per week, 3 miles Does report he is only limited by his feet / lower ext pain Sts PCP last checked his A1C in February 6.7% He does have a family history of diabetes mellitus in his Mother. Sister The patient reports the following microvascular complications: nephropathy Gamaliel has no know macrovascular complications of diabetes.. (recent CABG, pt not related) DM Education No Knows how to carb count Yes - saw DM nurse at [facility] 40 grams per meal - DIETARY HISTORY: Breakfast: cereal OR toast or bagel with water or tea and carnation breakfast daily with fruit (apple, oranges, grapes) Lunch fruit (apple or orange) and sandwich deli Dinner cooks, balanced protein/starch/vegetable OR soup rarely eat out or take out Snacks not really, rarely, if does may have saltine crackers OR pretzels Drinks water, tea Exercise: [employer] total gym program (3-4 times per week) CURRENT DM MEDS pt manipulates own insulin dosing FARXIGA 10 mg 1 tab daily LANTUS 36 units daily (pt dropped to 10 units, then increased to 20 units ) NOVOLOG 9-9-9 plus SS#2 (pt states is using 10 units with breakfast, if walking for lunch takes none, if doesn't walk will take 5-7 units, dinner 10-15 units THYROID SYNTHROID 175 mcg 1 tab daily (managed by PCP) SMBG Type of Monitor: Other Frequency of Monitoring: MadroneE CGM times a day Pt NOT SHARED WITH OFFICE YESTERDAY NUMBERS reported by patient from recall BG Values: Breakfast: 140 Lunch: 140 Dinner: 150-233 Bed-time: 150-200 Values over past week: Highest ; Lowest Hypoglycemia: no Diet: Low carbohydrate Exercise: as per above DM REVIEW OF SYSTEMS Last Eye Exam : 2022 will see retina specialist soon (reports eye have worsened since CABG) Last Podiatry Exam: Cardiorespiratory: negative, denies chest pain, pressure Claudication: no Dyslipidemia: Yes, controlled on medication High Blood Pressure: Yes, controlled on medication CURRENT LABS none current PAST MEDICAL HISTORY Diagnosis Date Anemia, unspecified CAD (coronary artery disease) Cardiomyopathy (HCC) Congestive heart failure (HCC) Diabetes mellitus (HCC) Dyslipidemia Essential hypertension Gout H/O heart artery stent Hypothyroidism Kidney stone Sleep apnea PAST SURGICAL HISTORY Procedure Laterality Date COLONOSCOPY FLX DX W/COLLJ SPEC WHEN PFRMD 06/23/2020 PAST SURGICAL HISTORY OF Cardiac stent x 4 FAMILY HISTORY Problem Relation Age of Onset other (passed at age 82) Mother Intersitial Lung Disease Mother Heart Attack Father other (passed at age 53) Father Cancer Paternal Grandfather Diabetes Sister other (valve disease) Sister other (atrial fib) Sister Social History Tobacco Use Smoking status: Never Smokeless tobacco: Never Substance Use Topics Alcohol use: Never Drug use: Never Current Outpatient Medications Medication Sig metoprolol succinate ER (TOPROL XL) 50 mg 24 hr tablet Take 1 tablet by mouth two times a day. dapagliflozin propanediol (FARXIGA) 10 mg tablet Take 1 tablet by mouth daily with breakfast. dapagliflozin propanediol (FARXIGA) 10 mg tablet Take 1 tablet by mouth daily with breakfast. isosorbide dinitrate (ISORDIL) 20 mg tablet Take 0.5 tablets by mouth three times a day. acetaminophen (TYLENOL) 325 mg tablet Take 2 tablets by mouth every 4 hours as needed (mild to moderate pain). senna-docusate (SENNA-S) 8.6-50 mg per tablet Take 1 tablet by mouth two times a day. Continue while on narcotic pain meds &/or as needed thereafter for mild post-op constipation & stool softening. insulin glargine (LANTUS SOLOSTAR U-100 INSULIN) 100 unit/mL (3 mL) Inject 36 Units subcutaneously every morning. insulin aspart U-100 (NOVOLOG FLEXPEN U-100 INSULIN) 100 unit/mL (3 mL) Inject 9 units with meals. Based on pre-meal blood sugar use following scale to add additional units as needed: 151-200 = 2 units. 201-250 = 4 units. 251-300 = 6 units. 301-350 = 8 units. 351- 400 = 10 units. Insulin Union, Disposable, (BD ULTRA-FINE KENN PEN NEEDLE) 32 gauge x 5/32 Use to inject insulin4 times a day blood sugar diagnostic (TRUE METRIX GLUCOSE TEST STRIP) test strip Use as instructed to check bloodsugar 4 times a day Lancets lancets Use as directed to check blood sugars 4 times a day hydrALAZINE (APRESOLINE) 25 mg tablet 25 mg three times a day. levothyroxine (SYNTHROID) 175 mcg tablet 175 mcg once daily. OTC PRODUCT Stool softner daily rosuvastatin (CRESTOR) 20 mg tablet Take 20 mg by mouth once daily. amLODIPine (NORVASC) 10 mg tablet Take 5 mg by mouth once daily. aspirin, enteric coated (ASPIRIN, ENTERIC COATED) 81 mg EC tablet Take 81 mg by mouth once daily. allopurinol (ZYLOPRIM) 300 mg tablet Take 300 mg by mouth once daily. buPROPion SR (ZYBAN SR; WELLBUTRIN SR) 150 mg 12 hr tablet Take 150 mg by mouth twice daily. No current facility-administered medications for this visit. ALLERGIES Allergen Reactions Lisinopril Swelling REVIEW OF SYSTEMS - POSITIVES IN BOLD GENERAL:No weight loss, malaise or fevers HEENT:Negative for frequent or significant headaches, No changes in hearing or vision, no nose bleeds or other nasal problems NECK:Negative for lumps, goiter, pain and significant neck swelling RESPIRATORY: Negative for cough, hemoptysis, wheezing, COPD, dyspnea or shortness of breath CARDIOVASCULAR: Negative for chest pain, leg swelling, hypertension, CHF or palpitations PHYSICAL EXAMINATION: BP 122/72 Pulse 60 Temp 36.7 C (98.1 F) (Temporal Artery) Ht 175.3 cm (5' 9) Wt 84.4 kg (186 lb) SpO2 98% BMI 27.47 kg/m General appearance: Well appearing, alert, in no acute distress, well-hydrated, well nourished. Skin: Skin color, texture, turgor normal, no suspicious rashes or lesions Head: Normocephalic, no masses, lesions, tenderness or abnormalities Eyes: JOHN Neck: thyroid symmetric to inspection Acanthosis: none noted Extremities: Edema: none Neuro: Negative., Oriented X 3 ASSESSMENT: (E11.22, N18.32, Z79.4) Type 2 diabetes mellitus with stage 3b chronic kidney disease, with long-term current use of insulin ([facility]) (primary encounter diagnosis) Comment: Excellent control Patient will share his CGM information Per reported A1C of 6.7% patient at control Will cont per reported insulin dosing, patient adjust own insulin according to BG and exercise Recommended diet: Low carbohydrate and Low saturated fat, low simple sugar, high fiber diet Exercise minimally 150 minutes per week, increase as tolerated. Adequate hydration - 1/2 body wgt in oz of water daily, unless fluid restriction applies. I instructed the patient to monitor blood sugars 4 times per day If blood sugars are persistently high or low, to call our office. Patient to continue to follow up with his PCP and with other consultants regarding his other medical problems. Plan: COMP METABOLIC PANEL, LIPID PANEL, NONFASTING, ALBUMIN/CREAT RATIO RND UR, HGB A1C, COMP METABOLIC PANEL, LIPID PANEL, NONFASTING, ALBUMIN/CREAT RATIO RND UR, HGB A1C Monica Hoyt CNP documented in this encounterCorey Hospital03-19-2024 History of Present illness Narrative* Latricia Parekh RN - 05/02/2023 1:51 PM EDT QOL Call Tracking Documentation Follow-Up Type: Phone Call Call Attempt: 1st Attempt Call Status: Patient will complete in MyChart documented in this encounterCorey Hospital03-05-2024 Instructions* Patient Instructions* Sary Gordon MD - 04/18/2023 10:18 AM EST Please get the ultrasound of your heart I will be in touch once the results come back documented in this encounterCorey Hospital03-05-2024 History of Present illness Narrative* Sary Gordon MD - 04/18/2023 9:38 AM EST Images from the original note were not included. Heart [facility] Vascular [facility] SECTION OF HEART FAILURE and CARDIAC TRANSPLANT MEDICINE OUTPATIENT VISIT DATE April 18, 2023 OUTPATIENT VISIT TYPE Established Patient PRIMARY CARE PHYSICIAN: [place] [address] CHIEF COMPLAINT: Follow-up NURSING INTAKE (Patient s concerns and/or recent hospitalizations/ER visits): HF Nursing Assessment: Interim Hospitalizations and/or ER visits:01/10/23 01/26/23 Chest Pain: no Skipping or irregular heartbeats: no Shortness of breath at rest: no Shortness of breath with activity: with exertion Cough: no Waking up in the middle of the night gasping for air: no Lightheadedness or dizziness: no Feeling like you are going to pass out: no Actually passing out: no Poor energy level: no Unintentional weight gain: no Unintentional weight loss: no Swelling in your legs,feet, abdomen: no Filling up quickly when you eat: yes HISTORY OF PRESENT ILLNESS: Doing well. Tolerating all his medications without any issues He started two sessions of cardiac rehab but felt that he could do more independently so he startedto work out by himself using treadmill and total body gym Plans to return to work next week Ran out of metoprolol last week PAST MEDICAL HISTORY Diagnosis Date Anemia, unspecified CAD (coronary artery disease) Cardiomyopathy (HCC) Congestive heart failure (HCC) Diabetes mellitus (HCC) Dyslipidemia Essential hypertension Gout H/O heart artery stent Hypothyroidism Kidney stone Sleep apnea PAST SURGICAL HISTORY Procedure Laterality Date COLONOSCOPY FLX DX W/COLLJ SPEC WHEN PFRMD 06/23/2020 PAST SURGICAL HISTORY OF Cardiac stent x 4 SOCIAL HISTORY Social History Tobacco Use Smoking status: Never Smokeless tobacco: Never Substance Use Topics Alcohol use: Never Drug use: Never FAMILY HISTORY Problem Relation Age of Onset other (passed at age 82) Mother Intersitial Lung Disease Mother Heart Attack Father other (passed at age 53) Father Cancer Paternal Grandfather Diabetes Sister other (valve disease) Sister other (atrial fib) Sister ALLERGIES: ALLERGIES Allergen Reactions Lisinopril Swelling CURRENT MEDICATIONS: dapagliflozin propanediol (FARXIGA) 10 mg tablet Take 0.5 tablets by mouth daily with breakfast. isosorbide dinitrate (ISORDIL) 20 mg tablet Take 0.5 tablets by mouth three times a day. metoprolol succinate ER (TOPROL XL) 50 mg 24 hr tablet Take 1 tablet by mouth two times a day. acetaminophen (TYLENOL) 325 mg tablet Take 2 tablets by mouth every 4 hours as needed (mild to moderate pain). potassium chloride ER (KLOR-CON M10) 10 mEq tablet Take 1 tablet by mouth once daily. senna-docusate (SENNA-S) 8.6-50 mg per tablet Take 1 tablet by mouth two times a day. Continue while on narcotic pain meds &/or as needed thereafter for mild post-op constipation & stool softening. hydrALAZINE (APRESOLINE) 25 mg tablet 25 mg three times a day. levothyroxine (SYNTHROID) 175 mcg tablet 175 mcg once daily. OTC PRODUCT Stool softner daily rosuvastatin (CRESTOR) 20 mg tablet Take 20 mg by mouth once daily. amLODIPine (NORVASC) 10 mg tablet Take 5 mg by mouth once daily. aspirin, enteric coated (ASPIRIN, ENTERIC COATED) 81 mg EC tablet Take 81 mg by mouth once daily. allopurinol (ZYLOPRIM) 300 mg tablet Take 300 mg by mouth once daily. buPROPion SR (ZYBAN SR; WELLBUTRIN SR) 150 mg 12 hr tablet Take 150 mg by mouth twice daily. dapagliflozin propanediol (FARXIGA) 10 mg tablet Take 1 tablet by mouth daily with breakfast. insulin glargine (LANTUS SOLOSTAR U-100 INSULIN) 100 unit/mL (3 mL) Inject 36 Units subcutaneously every morning. insulin aspart U-100 (NOVOLOG FLEXPEN U-100 INSULIN) 100 unit/mL (3 mL) Inject 9 units with meals. Based on pre-meal blood sugar use following scale to add additional units as needed: 151-200 = 2 units. 201-250 = 4 units. 251-300 = 6 units. 301-350 = 8 units. 351- 400 = 10 units. Insulin [place], Disposable, (BD ULTRA-FINE KENN PEN NEEDLE) 32 gauge x 5/32 Use to inject insulin4 times a day blood sugar diagnostic (TRUE METRIX GLUCOSE TEST STRIP) test strip Use as instructed to check bloodsugar 4 times a day Lancets lancets Use as directed to check blood sugars 4 times a day REVIEW OF SYSTEMS: CONSTITUTION: Negative for: Weight loss or gain, Fever. Chills, Night sweats HEENT: Negative for: Hearing loss, Nosebleeds, Mouth sores, Trouble swallowing, Dry mouth RESPIRATORY: Negative for: Cough, Difficulty breathing GASTROINTESTINAL: Negative for: Melena, Diarrhea, Nausea, Abdominal distension, Early satiety MUSCULOSKELETAL: Negative for: Arthralgias, Myalgias NEUROLOGICAL: Negative for: Headaches, Dizziness SKIN: Negative for: Rash EYES: Negative for: Vision disturbance CARDIOVASCULAR: Negative for: Chest pain, Leg swelling, Arrhythmia, Presyncope GENITOURINARY: Negative for: Difficulty urinatiing PATIENT ENTERED DATA: No flowsheet data found. PHQ-9 03/13/2023 Score 6 PROMIS Global Health - (T-Scores - the mean of general population = 50. Five points is a clinicallymeaningful difference.) 01/18/2023 03/13/2023 Physical T-Score 37.4 50.8 Mental T-Score 45.8 48.3 PHYSICAL EXAMINATION: BP 133/87 (BP Site: Right Arm, BP Position: Sitting, BP Cuff Size: Regular Adult) Pulse 89 Resp15 Ht 175.3 cm (5' 9) Wt 81.6 kg (180 lb) SpO2 97% BMI 26.58 kg/m General: Well appearing, in no acute distress. Skin: No clubbing, no cyanosis. Eyes: Extra ocular movements intact Oropharynx: Teeth in good repair. Neck: No jugular venous distention, no carotid bruits, carotids have a normal upstroke, no palpablethyromegaly. Lungs: Clear to auscultation bilaterally, no wheezing or rhonchi. Heart: Regular rhythm, PMI not displaced, S1, S2 normal, no S3, no S4, no heaves, no rub and no murmur. Abdomen: Soft, nontender, bowel sounds normal, no palpable organomegaly, no bruits. Extremities: No peripheral edema . Grade 2/4 distal pulses bilaterally. Neuro: Oriented to person, place and time, alert, cooperative, gait coordinated. CARDIOVASCULAR MEDICINE TESTING: I have personally reviewed the Electrocardiogram, Chest X-ray, Laboratory Testing, and Echocardiogram. Last ECHO Result Conclusion ECHO Collected: 01/09/2023 1:00 PM (Final result) Impression: CONCLUSIONS: - Exam indication: Initial evaluation of known cardiomyopathy - The left ventricle is mildly dilated. There is left ventricular hypertrophy. Left ventricular systolic function is severely decreased. EF = 29 5% (2D 4-ch.) - The right ventricle is normal in size. Right ventricular systolic function is normal. - The left atrial cavity is moderately dilated. -no LV thrombus visualized on 2D images, although definity not available for confirmation - The patient has not had a prior [facility] echocardiographic exam for comparison. * * * Final * * * Last EKG Result Conclusion ECG COMPLETE Collected: 02/01/2023 5:51 AM (Final result) Impression: NORMAL SINUS RHYTHM ANTEROSEPTAL MYOCARDIAL INFARCTION , 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 ECG Confirmed by MEGGAN TEMPLETON MD ([id number]) on 03/01/2023 10:58:[address] Result Conclusion CT CHEST CARDIAC WO IVCON Exam End: 01/09/2023 2:43 PM (Final result) Impression: IMPRESSION: 1. Ectasia of aortic root (4.6 x 4.4 cm, area: 13.8 cm2), and mid ascending thoracic aorta (4.4 cm, area: 15.1 cm2). Pattern of calcific wall changes as described in the body of the report. 2. Diffuse coronary artery calcifications. Drywall Installer: MACIEJ Transcribe Date/Time: Jan 09 2023 3:58P Dictated by : BEVERLY FRIED MD This examination was interpreted and the report reviewed and electronically signed by: BEVERLY FRIED MD on Jan 09 2023 4:24PM EST Last MRI Result Conclusion MRI CARDIAC VELOCITY FLOW MAP Exam End: 01/09/2023 6:25 PM (Final result) Impression: IMPRESSION: - The left ventricle is dilated (LV EDVi = 144 ml/m ). The left ventricular systolic function is severely decreased (LV EF = 27 %). There is no hypertrophy. There is akinesis of the basal and mid anteroseptum and severe hypokinesia of the inferoseptum, anterior wall, anterolateral wall. There is mild hypokinesis of the inferior wall and inferolateral wall. There is mild delayed gadolinium enhancement in an ischemic, subendocardial distribution in the apical inferoseptum, entire anteroseptum, and a portion of the basal inferolateral wall. Overall, the myocardium globally appears viable. - The right ventricle is normal in size (RV EDVi = 66 ml/m ). The right ventricular systolic function is low normal (RV EF = 48 %). -Dilation of the left atrium. -On axial images, the aorta is dilated; refer to dedicated imaging (CT Noncon on January 09, 2023) for accurate assessment. - The patient has not had a prior [facility] cardiac MR exam for comparison. * * * Final * * * RP Drywall Installer: [id number] Transcribe Date/Time: Jan 09 2023 5:22P Dictated by : HEDY NOEL MD This examination was interpreted and the report reviewed and electronically signed by: HEDY NOEL MD on Jan 10 2023 10:16AM EST IMPRESSION: NYHA Functional Class: II Stage: C heart failure Target weight: 180lbs 67 y/o M history of insulin dependent diabestes, CKD IIIb (baseline Cre 2.5), new diagnosis of HFrEF secondary to ischemia with multi-vessel coronary disease, referred by Dr. Conley for pre-operativeoptimization underwent 01/26/2023: CABGx4: SULLIVAN to LAD SVG to RPDA/SVG to OM2 /Left Radial to Ramusbriefly had post-operative AF HFrEF - on max tolerated GDMT, repeat TTE scheduled for today, euvolemic on exam, ICD TBD pending TTE CKD - follows with nephrology Heart Failure specific medications (list current, note updates or changes, note prior intolerance): BB: Metoprolol xl 50mg BID ACEI/ARB/ARNI: CKD MRA: CKD SGLT2: Farxiga 10mg daily Diuretic: - Digoxin: - Vasodilators: Isordil 10mg TID, Hydral 25mg TID Anti-arrhythmics: - Ivabradine: - Other anti-HTN: Amlodipine 5mg Others: Crestor 20, aspirin PLAN AND RECOMMENDATIONS: - Continue current medications - Provided refills - Follow-up TTE today Follow-up prn. He would like to establish care with [facility] in [place] because it is closer to his house I personally interviewed, confirmed and edited the above information as obtained by others. We discussed natural history of disease, current treatment options, and future potential treatment options.We discussed diet, exercise, other non- medical management as above. Sary Gordon MD [facility] Section Of Heart Failure and Cardiac Transplant Medicine Heart and Vascular [facility] Desk [id number] [place] [address] documented in this encounterCorey Hospital02-09-2024 NoteHNO ID: [id number] Author: ROD FERNANDEZ Deburring Machine Operator Service: ? Author Type: Deburring Machine Operator Type: Progress Notes Filed: 03/24/2023 13:41 Note Text: Card[facility] Rehabilitation [facility] Based Program Supervising Physician: Ricarda Medley Diagnosis: CABG Phase: 2 Monitor: Yes Session Number: 3 Today's exercise session was comprised of a warm-up, aerobic conditioning phase, aerobic cool-down, and free weight resistance training omitted. Patient tolerated prescribed exercise workload. Tele SR without ectopic beats. Vitals WNL for patient. No chest discomfort. No medication changes. This is a hospital based cardiac rehab program. Patient working towards exercise goals by sustaining exercise intensity and duration. Patient working towards education goal by attending education sessions in cardiac rehabilitation. Patient has verbalized understanding of exercise education topic and the relation to disease managment. Patient's Daily Exercise Log will be scanned into [facility] once it is completed. These can be viewed by going under the Scanned Documents tab and looking for documents labeled Cardiac Rehabilitation. Daily Exercise Logs contain exercise data such as, but not limited to modality, intensity, duration and frequency of exercise, along with vital signs pre-, during, and post-exercise. Refer to patient's paper medical record for ECG rhythm strips, physician prescribed Individualized Treatment Plan, and education sessions covered. Toyin RodriguezTuscarawas [id number] History of Present illness Narrative* Rod Fernandez Deburring Machine Operator - 03/24/2023 1:41 PM EST Images from the original note were not included. Cardiac Rehabilitation [facility] Based Program Supervising Physician: Ricarda Medley Diagnosis: CABG Phase: 2 Monitor: Yes Session Number: 3 Today's exercise session was comprised of a warm-up, aerobic conditioning phase, aerobic cool-down,and free weight resistance training omitted. Patient tolerated prescribed exercise workload. Tele SR without ectopic beats. Vitals WNL for patient. No chest discomfort. No medication changes. This is a hospital based cardiac rehab program. Patient working towards exercise goals by sustaining exercise intensity and duration. Patient working towards education goal by attending education sessions in cardiac rehabilitation. Patient has verbalized understanding of exercise education topic and the relation to disease managment. Patient's Daily Exercise Log will be scanned into [facility] once it is completed. These can be viewed bygoing under the Scanned Documents tab and looking for documents labeled Cardiac Rehabilitation.Daily Exercise Logs contain exercise data such as, but not limited to modality, intensity, durationand frequency of exercise, along with vital signs pre-, during, and post-exercise. Refer to patient's paper medical record for ECG rhythm strips, physician prescribed Individualized Treatment Plan, and education sessions covered. Rod Fernandez Deburring Machine Operator documented in this encounterCorey Hospital02-07-2024 NoteHNO ID: [id number] Author: JACOB GUNTER, strap stitcher Service: ? Author Type: Agricultural Research Engineer Type: Progress Notes Filed: 03/22/2023 13:51 Note Text: Cardiac Rehabilitation Hospital Based Program Supervising Physician: Ricarda Medley Diagnosis: CABG Phase: 2 Monitor: Yes Session Number: 2 Today's exercise session was comprised of a warm-up, aerobic conditioning phase, aerobic cool-down, and omitting free weight resistance training. Patient tolerated prescribed exercise workload. Tele SR without ectopic beats. Vitals WNL for patient. No chest discomfort. No medication changes. This is a hospital based cardiac rehab program. Patient working towards exercise goals by increasing exercise intensity and duration. Patient working towards education goal by attending education sessions in cardiac rehabilitation. Patient has verbalized understanding of Weight control education topic and the relation to disease managment. Patient's Daily Exercise Log will be scanned into [facility] once it is completed. These can be viewed by going under the Scanned Documents tab and looking for documents labeled Cardiac Rehabilitation. Daily Exercise Logs contain exercise data such as, but not limited to modality, intensity, duration and frequency of exercise, along with vital signs pre-, during, and post-exercise. Refer to patient's paper medical record for ECG rhythm strips, physician prescribed Individualized Treatment Plan, and education sessions covered. Jacob Gunter, Exercise PhysiologistTuscarawas [id number] History of Present illness Narrative* Jacob Gunter, strap stitcher - 03/22/2023 1:50 PM EST Images from the original note were not included. Cardiac Rehabilitation Hospital Based Program Supervising Physician: Ricarda Medley Diagnosis: CABG Phase: 2 Monitor: Yes Session Number: 2 Today's exercise session was comprised of a warm-up, aerobic conditioning phase, aerobic cool-down,and omitting free weight resistance training. Patient tolerated prescribed exercise workload. Tele SR without ectopic beats. Vitals WNL for patient. No chest discomfort. No medication changes. This is a hospital based cardiac rehab program. Patient working towards exercise goals by increasing exercise intensity and duration. Patient working towards education goal by attending education sessions in cardiac rehabilitation. Patient has verbalized understanding of Weight control education topic and the relation to disease managment. Patient's Daily Exercise Log will be scanned into [facility] once it is completed. These can be viewed bygoing under the Scanned Documents tab and looking for documents labeled Cardiac Rehabilitation.Daily Exercise Logs contain exercise data such as, but not limited to modality, intensity, durationand frequency of exercise, along with vital signs pre-, during, and post-exercise. Refer to patient's paper medical record for ECG rhythm strips, physician prescribed Individualized Treatment Plan, and education sessions covered. Jacob Gunter, Deburring Machine Operator documented in this encounterCorey Hospital02-05-2024 Miscellaneous Notes* Telephone Encounter - Iris Shultz RN - 03/20/2023 2:02 PM EST Completed in additional encounter. Hodan Shultz RN March 20, 2023 2:02 PM * Telephone Encounter - Lu Suh - 03/15/2023 7:50 AM EST Recd FMLA and short term disability paperwork, gave to the nurses. Lu documented in this encounterCorey Hospital02-02-2024 NoteHNO ID: [id number] Author: ROD FERNANDEZ Deburring Machine Operator Service: ? Author Type: Deburring Machine Operator Type: Progress Notes Filed: 03/17/2023 13:57 Note Text: Cardiac Rehabilitation [facility] Based Program Supervising Physician: Ricarda Medley Diagnosis: CABG Phase: 2 Monitor: Yes Session Number: 1 Today's exercise session was comprised of a warm-up, aerobic conditioning phase, aerobic cool-down, and free weight resistance training. Patient tolerated prescribed exercise workload. Tele SR without ectopic beats. Vitals WNL for patient. No chest discomfort. No medication changes. This is a hospital based cardiac rehab program. Patient working towards exercise goals by increasing exercise frequency, intensity and duration. Patient working towards education goal by attending education sessions in cardiac rehabilitation. Patient has verbalized understanding of cholesterol education topic and the relation to disease managment. Patient's Daily Exercise Log will be scanned into [facility] once it is completed. These can be viewed by going under the Scanned Documents tab and looking for documents labeled Cardiac Rehabilitation. Daily Exercise Logs contain exercise data such as, but not limited to modality, intensity, duration and frequency of exercise, along with vital signs pre-, during, and post-exercise. Refer to patient's paper medical record for ECG rhythm strips, physician prescribed Individualized Treatment Plan, and education sessions covered. Rod Fernandez, Exercise PhysiologistTuscarawas [id number] NoteHNO ID: [id number] Author: RICARDA PINO DO Service: ? Author Type: Deburring Machine Operator Type: Progress Notes Filed: 03/24/2023 17:11 Note Text: Attestation signed by Ricarda Pino DO at 03/24/2023 5:11 PM I have reviewed the detailed Individualized Treatment Plan assessment and plan for the patient as described above and agree with the recommendations. Ricarda Pino DO, FACC, FACOI Clinical and Preventive Cardiology Department of Medicine and Division of Cardiology, [facility] Staff Linux Administrator, Velma Chou Department of Cardiovascular Medicine/Heart and Vascular [place], [facility] Clinical assistant baseball coach Profressor of Medicine, [facility] Heart and Vascular [facility] Velma Astorga Department of Cardiovascular Medicine Initial Assessment for Cardiac Rehab Gamaliel Griffin 03/14/2024 CHIEF COMPLAINT: Gamaliel Griffin is a 67 year old male seen today. Patient presents with: Cardiac Rehab Eval: Initial Assessment HISTORY OF PRESENT ILLNESS: CABG PAST MEDICAL HISTORY Diagnosis Date Anemia, unspecified CAD (coronary artery disease) Cardiomyopathy (HCC) Congestive heart failure (HCC) Diabetes mellitus (HCC) Dyslipidemia Essential hypertension Gout H/O heart artery stent Hypothyroidism Kidney stone Sleep apnea PAST SURGICAL HISTORY Procedure Laterality Date COLONOSCOPY FLX DX W/COLLJ SPEC WHEN PFRMD 06/23/2020 PAST SURGICAL HISTORY OF Cardiac stent x 4 Social History Tobacco Use Smoking status: Never Smokeless tobacco: Never Alcohol use: Never Drug use: Never FAMILY HISTORY Problem Relation Age of Onset other (passed at age 82) Mother Intersitial Lung Disease Mother Heart Attack Father other (passed at age 53) Father Cancer Paternal Grandfather Diabetes Sister other (valve disease) Sister other (atrial fib) Sister CURRENT MEDS: Current Outpatient Medications Medication Sig dapagliflozin propanediol (FARXIGA) 10 mg tablet Take 0.5 tablets by mouth daily with breakfast. isosorbide dinitrate (ISORDIL) 20 mg tablet Take 0.5 tablets by mouth three times a day. metoprolol succinate ER (TOPROL XL) 50 mg 24 hr tablet Take 1 tablet by mouth two times a day. acetaminophen (TYLENOL) 325 mg tablet Take 2 tablets by mouth every 4 hours as needed (mild to moderate pain). furosemide (LASIX) 20 mg tablet Take 1 tablet by mouth once daily. pantoprazole DR (PROTONIX) 20 mg tablet Take 1 tablet by mouth daily at 6 am for 14 days. potassium chloride ER (KLOR-CON M10) 10 mEq tablet Take 1 tablet by mouth once daily. senna-docusate (SENNA-S) 8.6-50 mg per tablet Take 1 tablet by mouth two times a day. Continue while on narcotic pain meds AND/or as needed thereafter for mild post-op constipation AND stool softening. insulin glargine (LANTUS SOLOSTAR U-100 INSULIN) 100 unit/mL (3 mL) Inject 36 Units subcutaneously every morning. insulin aspart U-100 (NOVOLOG FLEXPEN U-100 INSULIN) 100 unit/mL (3 mL) Inject 9 units with meals. Based on pre-meal blood sugar use following scale to add additional units as needed: 151-200 = 2 units. 201-250 = 4 units. 251-300 = 6 units. 301-350 = 8 units. 351- 400 = 10 units. Insulin [place], Disposable, (BD ULTRA-FINE KENN PEN NEEDLE) 32 gauge x 5/32 Use to inject insulin 4 times a day blood sugar diagnostic (TRUE METRIX GLUCOSE TEST STRIP) test strip Use as instructed to check blood sugar 4 times a day Lancets lancets Use as directed to check blood sugars 4 times a day hydrALAZINE (APRESOLINE) 25 mg tablet 25 mg three times a day. levothyroxine (SYNTHROID) 175 mcg tablet 175 mcg once daily. OTC PRODUCT Stool softner daily rosuvastatin (CRESTOR) 20 mg tablet Take 20 mg by mouth once daily. amLODIPine (NORVASC) 10 mg tablet Take 5 mg by mouth once daily. aspirin, enteric coated (ASPIRIN, ENTERIC COATED) 81 mg EC tablet Take 81 mg by mouth once daily. allopurinol (ZYLOPRIM) 300 mg tablet Take 300 mg by mouth once daily. buPROPion SR (ZYBAN SR; WELLBUTRIN SR) 150 mg 12 hr tablet Take 150 mg by mouth twice daily. No current facility-administered medications for this visit. ALLERGIES Allergen Reactions Lisinopril Swelling PHYSICAL EXAMINATION: BP 116/60 Pulse 60 Ht 5' 9 (1.75m) Wt 188 lb 8 oz (85.5kg) SpO2 96[RA]% BMI 27.82 kg/(m2). INDIVIDUAL TREATMENT PLAN Program Location: [place] Cardiac Rehab evaluation site : [facility] Completed : [place] Program: Entry Phase II Primary Reason For Referral: CABG EXERCISE ASSESSMENT Current Exercise: Yes Type of Exercise: Walk;Strength (walks around house and has strength training machine at home) Exercise Du (more content not included)...Tuscarawas [id number] History of Past illness Narrative* Problem Noted Date Diagnosed Date Resolved Date Thrombocytopenia 01/28/2023 01/30/2023 Hyperkalemia 01/28/2023 01/30/2023 Hyponatremia 01/28/2023 01/30/2023 Acute on chronic systolic co ngestive heart failure 01/26/2023 01/31/2023 Overview: On Metoprolol, Hydralazine, and Isordil at home. Pre-op testing 01/24/2023 01/26/2023 [facility] Informed Consent Completed: yes CAD: Yes - CAD on Problem List: Yes Is intended procedure a CABG: Yes - is a beta carl ordered? No - reason: pending H & P completed: Yes PA/LAT: N/A CT: Completed MRI: N/A LE US: N/A Cath: Yes - reviewed: Yes EKG: Completed Is patient on Amiodarone? No Echo:Completed EF %: 29 PI's: N/A Carotid: N/A Mapping: Completed Dental: Cleared PFT's: N/A UA: neg HCG:N/A ABO/ABO Confirmed: No pending Blood ordered: No SA Swab: Yes - results: Pending Last Dose of Anticoagulation: continued asa 81mg Anticoagulant & Antiplatelet Medications Patient Encounter Information Not Found Op Note: No Pacer Check: NA Implants: no Consults: na DM: Yes Cardiac Surgical prep: No SIGNATURE: Tammie Cullen RN DATE of SERVICE: 01/24/2023 TIME of SERVICE: 10:33 AM CHECKED BY: RR documented as of this encounter (statuses as of 02/02/2023) [facility] History of Past illness Narrative* Problem Noted Date Diagnosed Date Resolved Date Thrombocytopenia 01/28/2023 01/30/2023 Hyperkalemia 01/28/2023 01/30/2023 Hyponatremia 01/28/2023 01/30/2023 Acute on chronic systolic co ngestive heart failure 01/26/2023 01/31/2023 Overview: On Metoprolol, Hydralazine, and Isordil at home. Pre-op testing 01/24/2023 01/26/2023 Overview: [facility] PRE-OP CHECK[facility] Informed Consent Completed: yes CAD: Yes - CAD on Problem List: Yes Is intended procedure a CABG: Yes - is a beta carl ordered? No - reason: pending H & P completed: Yes PA/LAT: N/A CT: Completed MRI: N/A LE US: N/A Cath: Yes - reviewed: Yes EKG: Completed Is patient on Amiodarone? No Echo:Completed EF %: 29 PI's: N/A Carotid: N/A Mapping: Completed Dental: Cleared PFT's: N/A UA: neg HCG:N/A ABO/ABO Confirmed: No pending Blood ordered: No SA Swab: Yes - results: Pending Last Dose of Anticoagulation: continued asa 81mg Anticoagulant & Antiplatelet Medications Patient Encounter Information Not Found Op Note: No Pacer Check: NA Implants: no Consults: na DM: Yes Cardiac Surgical prep: No SIGNATURE: Tammie Cullen RN DATE of SERVICE: 01/24/2023 TIME of SERVICE: 10:33 AM CHECKED BY: RR documented as of this encounter (statuses as of 03/21/2023) [facility] History of Past illness Narrative* Problem Noted Date Diagnosed Date Resolved Date Thrombocytopenia 01/28/2023 01/30/2023 Hyperkalemia 01/28/2023 01/30/2023 Hyponatremia 01/28/2023 01/30/2023 Acute on chronic systolic co ngestive heart failure 01/26/2023 01/31/2023 Overview: On Metoprolol, Hydralazine, and Isordil at home. Pre-op testing 01/24/2023 01/26/2023 Overview: [facility] PRE-OP CHECKLIST Informed Consent Completed: yes CAD: Yes - CAD on Problem List: Yes Is intended procedure a CABG: Yes - is a beta carl ordered? No - reason: pending H & P completed: Yes PA/LAT: N/A CT: Completed MRI: N/A LE US: N/A Cath: Yes - reviewed: Yes EKG: Completed Is patient on Amiodarone? No Echo:Completed EF %: 29 PI's: N/A Carotid: N/A Mapping: Completed Dental: Cleared PFT's: N/A UA: neg HCG:N/A ABO/ABO Confirmed: No pending Blood ordered: No SA Swab: Yes - results: Pending Last Dose of Anticoagulation: continued asa 81mg Anticoagulant & Antiplatelet Medications Patient Encounter Information Not Found Op Note: No Pacer Check: NA Implants: no Consults: na DM: Yes Cardiac Surgical prep: No SIGNATURE: Tammie Cullen RN DATE of SERVICE: 01/24/2023 TIME of SERVICE: 10:33 AM CHECKED BY: RR documented as of this encounter (statuses as of 03/23/2023) [facility] History of Past illness Narrative* Problem Noted Date Diagnosed Date Resolved Date Thrombocytopenia 01/28/2023 01/30/2023 Hyperkalemia 01/28/2023 01/30/2023 Hyponatremia 01/28/2023 01/30/2023 Acute on chronic systolic co ngestive heart failure 01/26/2023 01/31/2023 Overview: On Metoprolol, Hydralazine, and Isordil at home. Pre-op testing 01/24/2023 01/26/2023 [facility] Informed Consent Completed: yes CAD: Yes - CAD on Problem List: Yes Is intended procedure a CABG: Yes - is a beta carl ordered? No - reason: pending H & P completed: Yes PA/LAT: N/A CT: Completed MRI: N/A LE US: N/A Cath: Yes - reviewed: Yes EKG: Completed Is patient on Amiodarone? No Echo:Completed EF %: 29 PI's: N/A Carotid: N/A Mapping: Completed Dental: Cleared PFT's: N/A UA: neg HCG:N/A ABO/ABO Confirmed: No pending Blood ordered: No SA Swab: Yes - results: Pending Last Dose of Anticoagulation: continued asa 81mg Anticoagulant & Antiplatelet Medications Patient Encounter Information Not Found Op Note: No Pacer Check: NA Implants: no Consults: na DM: Yes Cardiac Surgical prep: No SIGNATURE: Tammie Cullen RN DATE of SERVICE: 01/24/2023 TIME of SERVICE: 10:33 AM CHECKED BY: RR documented as of this encounter (statuses as of 03/24/2023) [facility] History of Past illness Narrative* Problem Noted Date Diagnosed Date Resolved Date Thrombocytopenia 01/28/2023 01/30/2023 Hyperkalemia 01/28/2023 01/30/2023 Hyponatremia 01/28/2023 01/30/2023 Acute on chronic systolic co ngestive heart failure 01/26/2023 01/31/2023 Overview: On Metoprolol, Hydralazine, and Isordil at home. Pre-op testing 01/24/2023 01/26/2023 Overview[facility] Informed Consent Completed: yes CAD: Yes - CAD on Problem List: Yes Is intended procedure a CABG: Yes - is a beta carl ordered? No - reason: pending H & P completed: Yes PA/LAT: N/A CT: Completed MRI: N/A LE US: N/A Cath: Yes - reviewed: Yes EKG: Completed Is patient on Amiodarone? No Echo:Completed EF %: 29 PI's: N/A Carotid: N/A Mapping: Completed Dental: Cleared PFT's: N/A UA: neg HCG:N/A ABO/ABO Confirmed: No pending Blood ordered: No SA Swab: Yes - results: Pending Last Dose of Anticoagulation: continued asa 81mg Anticoagulant & Antiplatelet Medications Patient Encounter Information Not Found Op Note: No Pacer Check: NA Implants: no Consults: na DM: Yes Cardiac Surgical prep: No SIGNATURE: Tammie Cullen RN DATE of SERVICE: 01/24/2023 TIME of SERVICE: 10:33 AM CHECKED BY: RR documented as of this encounter (statuses as of 03/27/2023) [facility] History of Past illness Narrative* Problem Noted Date Diagnosed Date Resolved Date Thrombocytopenia 01/28/2023 01/30/2023 Hyperkalemia 01/28/2023 01/30/2023 Hyponatremia 01/28/2023 01/30/2023 Acute on chronic systolic co ngestive heart failure 01/26/2023 01/31/2023 Overview: On Metoprolol, Hydralazine, and Isordil at home. Pre-op testing 01/24/2023 01/26/2023 Overview: [facility] Informed Consent Completed: yes CAD: Yes - CAD on Problem List: Yes Is intended procedure a CABG: Yes - is a beta carl ordered? No - reason: pending H & P completed: Yes PA/LAT: N/A CT: Completed MRI: N/A LE US: N/A Cath: Yes - reviewed: Yes EKG: Completed Is patient on Amiodarone? No Echo:Completed EF %: 29 PI's: N/A Carotid: N/A Mapping: Completed Dental: Cleared PFT's: N/A UA: neg HCG:N/A ABO/ABO Confirmed: No pending Blood ordered: No SA Swab: Yes - results: Pending Last Dose of Anticoagulation: continued asa 81mg Anticoagulant & Antiplatelet Medications Patient Encounter Information Not Found Op Note: No Pacer Check: NA Implants: no Consults: na DM: Yes Cardiac Surgical prep: No SIGNATURE: Tammie Cullen RN DATE of SERVICE: 01/24/2023 TIME of SERVICE: 10:33 AM CHECKED BY: RR documented as of this encounter (statuses as of 04/18/2023) [facility] History of Past illness Narrative* Problem Noted Date Diagnosed Date Resolved Date Thrombocytopenia 01/28/2023 01/30/2023 Hyperkalemia 01/28/2023 01/30/2023 Hyponatremia 01/28/2023 01/30/2023 Acute on chronic systolic co ngestive heart failure 01/26/2023 01/31/2023 Overview: On Metoprolol, Hydralazine, and Isordil at home. Pre-op testing 01/24/2023 01/26/2023 Overview: [facility] Informed Consent Completed: yes CAD: Yes - CAD on Problem List: Yes Is intended procedure a CABG: Yes - is a beta carl ordered? No - reason: pending H & P completed: Yes PA/LAT: N/A CT: Completed MRI: N/A LE US: N/A Cath: Yes - reviewed: Yes EKG: Completed Is patient on Amiodarone? No Echo:Completed EF %: 29 PI's: N/A Carotid: N/A Mapping: Completed Dental: Cleared PFT's: N/A UA: neg HCG:N/A ABO/ABO Confirmed: No pending Blood ordered: No SA Swab: Yes - results: Pending Last Dose of Anticoagulation: continued asa 81mg Anticoagulant & Antiplatelet Medications Patient Encounter Information Not Found Op Note: No Pacer Check: NA Implants: no Consults: na DM: Yes Cardiac Surgical prep: No SIGNATURE: Tammie Cullen RN DATE of SERVICE: 01/24/2023 TIME of SERVICE: 10:33 AM CHECKED BY: RR documented as of this encounter (statuses as of 05/02/2023) [facility] History of Past illness Narrative* Problem Noted Date Diagnosed Date Resolved Date Thrombocytopenia 01/28/2023 01/30/2023 Hyperkalemia 01/28/2023 01/30/2023 Hyponatremia 01/28/2023 01/30/2023 Acute on chronic systolic co ngestive heart failure 01/26/2023 01/31/2023 Overview: On Metoprolol, Hydralazine, and Isordil at home. Pre-op testing 01/24/2023 01/26/2023 Overview: [facility] Informed Consent Completed: yes CAD: Yes - CAD on Problem List: Yes Is intended procedure a CABG: Yes - is a beta carl ordered? No - reason: pending H & P completed: Yes PA/LAT: N/A CT: Completed MRI: N/A LE US: N/A Cath: Yes - reviewed: Yes EKG: Completed Is patient on Amiodarone? No Echo:Completed EF %: 29 PI's: N/A Carotid: N/A Mapping: Completed Dental: Cleared PFT's: N/A UA: neg HCG:N/A ABO/ABO Confirmed: No pending Blood ordered: No SA Swab: Yes - results: Pending Last Dose of Anticoagulation: continued asa 81mg Anticoagulant & Antiplatelet Medications Patient Encounter Information Not Found Op Note: No Pacer Check: NA Implants: no Consults: na DM: Yes Cardiac Surgical prep: No SIGNATURE: Tammie Cullen RN DATE of SERVICE: 01/24/2023 TIME of SERVICE: 10:33 AM CHECKED BY: RR documented as of this encounter (statuses as of 05/11/2023) [facility] History of Past illness Narrative* Problem Noted Date Diagnosed Date Resolved Date Thrombocytopenia 01/28/2023 01/30/2023 Hyperkalemia 01/28/2023 01/30/2023 Hyponatremia 01/28/2023 01/30/2023 Acute on chronic systolic co ngestive heart failure 01/26/2023 01/31/2023 Overview: On Metoprolol, Hydralazine, and Isordil at home. Pre-op testing 01/24/2023 01/26/2023 Overview: [facility] Informed Consent Completed: yes CAD: Yes - CAD on Problem List: Yes Is intended procedure a CABG: Yes - is a beta carl ordered? No - reason: pending H & P completed: Yes PA/LAT: N/A CT: Completed MRI: N/A LE US: N/A Cath: Yes - reviewed: Yes EKG: Completed Is patient on Amiodarone? No Echo:Completed EF %: 29 PI's: N/A Carotid: N/A Mapping: Completed Dental: Cleared PFT's: N/A UA: neg HCG:N/A ABO/ABO Confirmed: No pending Blood ordered: No SA Swab: Yes - results: Pending Last Dose of Anticoagulation: continued asa 81mg Anticoagulant & Antiplatelet Medications Patient Encounter Information Not Found Op Note: No Pacer Check: NA Implants: no Consults: na DM: Yes Cardiac Surgical prep: No SIGNATURE: Tammie Cullen RN DATE of SERVICE: 01/24/2023 TIME of SERVICE: 10:33 AM CHECKED BY: RR documented as of this encounter (statuses as of 05/22/2023) [facility]12-04-2023 Miscellaneous Notes* Telephone Encounter - Nadine Shankar RN - 01/16/2023 2:26 PM EST CARE CONTINUUM ADVISOR ASSESSMENT PRIMARY CARE PHYSICIAN: Piedad Han MD, MD OR Surgery Date: 01/26/23 [facility] Appointment: 01/25/23 Health Insurance: Medicare A&B, [facility] 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 Primary Contact: Extended Emergency Contact Information Primary Emergency Contact: MADIE GRIFFIN Address: [address] [place] [address] Mobile Relation: Spouse Secondary Emergency Contact: Buffy Lee [facility], [facility] [place] Mobile Relation: Daughter Other Important Patient Contacts: None 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 Yes, requested copies for chart Does Patient Have Concerns About Advance Directives? No Education Provided: Yes, will bring SOCIAL: Living Arrangement: Home Lives With: Spouse Stairs: 2 story home 2 stairs to enter home Do you have any concerns with food and/or affording food?: No Do you have reliable transportation to and from surgery/appointments?: Yes, plan to drive w/spouse and stay w/sister in law close by [place] Medication Adherence: Do you have any concerns with your prescription medication?: No Who do you use for pharmacy?: [facility] [address] [place] [id number] [address] [facility] - [phone] Pre-Hospital Baseline Mental Status: Alert & Oriented Informant: Self What is your current functional status?: Perform ADLs independently Equipment: Do you currently use any equipment at home for your medical condition or to help you get around? Bi-level Positive Airway Pressure/Continuous Positive Airway Pressure CPAP at night, will bring Active Services/Needs: None Do you have a community health promoter contact through your insurance or WRAAA?: No Has the Patient Been in a Chcf Facility in the Past 30 days? No FREEDOM OF CHOICE: Level of Care Discussed: Home Care, Ch[facility] Facility, Inpatient Rehab Facility, Computer Teacher [facility], and Cardiac rehab Financial Disclosure Provided: No Financial Disclaimer Provided: Yes, regarding pre-cert / insurance authorization Provider List: Home Care Provider list within the patient's requested geographic area shared with the patient/family: Yes - Within [address] of [address] [place] [address] Provider Choices Collected Home Health: [facility], [facility], and [facility] Interventions: Discussed importance of active PCP relationship and follow up Discussed insurance risks, gaps, and programs available Advanced Directives Education Discussed reliable transportation needs for surgery and follow up appointments Discussed prescription medications adherence Nadine Shankar, RN documented in [facility] encounter[facility]11-[facility] Miscellaneous Notes* Telephone Encounter - Erica Mejias RN - 01/12/2023 10:43 AM EST 01-25 [facility]CI and lab / 01-26 [facility] *Please send dental form and please schedule - in afternoon *Please email schedule surgery: CABG MAG +/- MVr +/- impella Gamaliel has called following his evaluation to schedule surgery. He has selected a surgical date of 01-26. We have discussed [facility]CI and lab appt, hospital stay, visitation, post op restrictions, follow upand dental clearance. Last dose OTC/supp/vit will be 12-8. Last day Farziga will be 12-10. He will remain on asa 81mg. He verbalized understanding and will call if questions arise. Erica Mejias RN Cardiac Surgery PreOp Checklist Patient Name: Gamaliel Griffin OR Surgery Date: 01-26 [facility] Appt. Date: 01-25 Primary Care Provider: Piedad Han MD, MD Definition Comments Diabetes/Insulin Pump A1-c and Endo consult (need for pump pt) in epic Hypothyroid/thyroid nodules TSH/US of thyroid if new nodule ordered Stroke (CVA) Neurology consult n/a Dysphagia, stricture w/no recent dilation, Mckeon's Esophagus GI consult n/a Von Willebrand/thrombocytopenia/ Blood... Hematology consult n/a Abnormal labs from outside Place any necessary consults n/a Cardiac Cath Correct birthday/include all images/moving if outside cath 11-07 Redo OHS/Robotic surgery/radiation to chest CT or CTA/if outside CT will need in-house CXR, CardiacMRI 01-09 Mechanical valve Admit for Heparin/Lovenox bridge n/a Female <50 y/o HCG n/a Heparin allergy hx of HIT Vascular Medicine consult n/a Nickel/Metal allergy Dermatology consult n/a Breast implants/Robotic candidates Plastic Surgery consult n/a Urinary strictures Urology consult/Urology consult to OR n/a All stimulators/spinal stimulator Type of stimulator n/a PPM/AICD Device check n/a Valve/TAVR/TEVAR/Myectomy/ascending aorta Dental clearance/Dental Consult at F discussed CABG surgery with previous CABG/varicose vein/vein stripping Leg vein mapping 01-10 LMT disease > 30% or Carotid Bruits Carotid ultrasound n/a Descending Aneurysm/TEVAR/TAA Pre-admit/hydration/spinal drain to be placed: IR/OR/Not Needed n/a Dialysis patient IHD day prior to OHS n/a CABG with no ECHO results Discussion w/surgeon results for dental clearance: preop/postop n/a Advanced Directives Instructions given to patient n/a FMLA Forward to AA n/a Test/Consult not needed Communicate in Epic or Access n/a Record of decreased PFTs, known lung disease Any pulmonary consult n/a Pulmonary embolectomy Needs US/Duplex BLE, VQ scan RHC, possible LHC, Pulmonary and/or Vascular consult n/a Abnormal CT All>1cm if further workup/consult needed n/a CC-Bio Repostitory Notification of packet and general knowledge given to pt n/a documented in this encounterCorey Hospital11-28-[facility] History of Present illness Narrative* Raúl Xiao MD - 01/10/2023 4:14 PM EST Images from the original note were not included. [facility] DEPARTMENT OF CARDIAC SURGERY OUTPATIENT VISIT DATE January 10, 2023 OUTPATIENT VISIT SERVICE DATE: 01/10/2023 SERVICE TIME: 4:32 PM PCP: MD John Menendez RD [facility] [address] [place] [address] Referring Physician: Raúl Xiao [id number] [facility] [id number] Patient Type: New Visit to Determine Surgery: Yes HPI: Mr. Gamaliel Griffin is a 67 year old male seen regarding candidacy for cardiac surgery. He has severe ischemic cardiomyopathy. RV function OK and CI>2. Radial OK and so are the SVG conduits Hx of diabetes , A1 C 9, CKD, hypothyroidism, JESENIA. Last CT Result Conclusion CT CHEST CARDIAC WO IVCON Exam End: 01/09/2023 2:43 PM (Final result) Impression: IMPRESSION: 1. Ectasia of aortic root (4.6 x 4.4 cm, area: 13.8 cm2), and mid ascending thoracic aorta (4.4 cm, area: 15.1 cm2). Pattern of calcific wall changes as described in the body of the report. 2. Diffuse coronary artery calcifications. Drywall Installer: MACIEJ Transcribe Date/Time: Jan 09 2023 3:58P Dictated by : BEVERLY FRIED MD This examination was interpreted and the report reviewed and electronically signed by: BEVERLY FRIED MD on Jan 09 2023 4:24PM EST Last MRI Result Conclusion MRI CARDIAC VELOCITY FLOW MAP Exam End: 01/09/2023 6:25 PM (Final result) Impression: IMPRESSION: - The left ventricle is dilated (LV EDVi = 144 ml/m ). The left ventricular systolic function is severely decreased (LV EF = 27 %). There is no hypertrophy. There is akinesis of the basal and mid anteroseptum and severe hypokinesia of the inferoseptum, anterior wall, anterolateral wall. There is mild hypokinesis of the inferior wall and inferolateral wall. There is mild delayed gadolinium enhancement in an ischemic, subendocardial distribution in the apical inferoseptum, entire anteroseptum, and a portion of the basal inferolateral wall. Overall, the myocardium globally appears viable. - The right ventricle is normal in size (RV EDVi = 66 ml/m ). The right ventricular systolic function is low normal (RV EF = 48 %). -Dilation of the left atrium. -On axial images, the aorta is dilated; refer to dedicated imaging (CT Noncon on January 09, 2023) for accurate assessment. - The patient has not had a prior [facility] cardiac MR exam for comparison. * * * Final * * * RP Drywall Installer: ABHIJEET Transcribe Date/Time: Jan 09 2023 5:22P Dictated by : HEDY NOEL MD This examination was interpreted and the report reviewed and electronically signed by: HEDY NOEL MD on Jan 10 2023 10:16AM EST Last ECHO Result Conclusion ECHO Collected: 01/09/2023 1:00 PM (Final result) Impression: CONCLUSIONS: - Exam indication: Initial evaluation of known cardiomyopathy - The left ventricle is mildly dilated. There is left ventricular hypertrophy. Left ventricular systolic function is severely decreased. EF = 29 5% (2D 4-ch.) - The right ventricle is normal in size. Right ventricular systolic function is normal. - The left atrial cavity is moderately dilated. -no LV thrombus visualized on 2D images, although definity not available for confirmation - The patient has not had a prior CC echocardiographic exam for comparison. * * * Final * * * Impression: CAD, ICM, mild MR Plan: CABG with CJ and radial and vein, possible MV surgery, possible Impella. Risks, options, alternatives, possible complications of the procedure and the roles of personnel involved were discussed fully with the patient and family. The risks include, but are not limited to mortality, bleeding, infection, stroke, renal/multisystem organ failure, and requirement for a pacemaker. Discussed concurrent surgery and surgeon backup.The patient understands and consents to proceed. The risks, benefits and anticipated outcomes of the procedure, the risks and benefits of the alternatives to the procedure, and the roles and tasks of the personnel to be involved, were discussed with the patient, and the patient consents to the procedure and agrees to proceed. We discussed the possibility that there could be two patients undergoing surgery in two separate rooms (concurrent surgery) and that I would be present for the critical components of all operations. We also discussed that in an emergency situation, a qualified backup surgeon is available and in the rare event of such aserious situation, that colleague might take over the operation. These findings will be communicated back to the requesting physician via electronic medical record Raúl Xiao MD documented in this encounterCorey Hospital11-27-2023 Miscellaneous Notes* Telephone Encounter - Celestina Rashid RN - 01/09/2023 1:55 PM EST CARDIOVASCULAR LAB INSTRUCTIONS: Readiness to Learn: Cognitive Ability: Alert and oriented Motivation To Learn: Interested Family/Significant Other Support: High - Very involved in pt care Instruction Provided To: Family member Patient Learns Best By: Individual Instruction Factors Affecting Learning: None Physical Limitations Affecting Learning: None Learning Response: Procedure: Right Heart Diagnostic Pre procedure education topics: Arrival time/NPO Status/Medications/Travel Instructions/Restrictions Patient/Family Response Evaluation: Verbalizes understanding Follow Up Plan and Medication: As directed by physician Instruction/Supplemental Material Given: Cardiac catheterization instructions, procedure information, hospital information, hotel information. Instructed By Celestina Rashid RN, RN. In Department of CARDIOLOGY. documented in this encounterCorey Hospital10-23-2023 Miscellaneous Notes* Telephone Encounter - Erica Mejias RN - 12/05/2022 1:28 PM EDT diagnosis: CAD history: PCI in 2008, ICM, CKD3, DM2, HTN, HLD, hypothyroid, JESENIA, gout blood thinners: asa 81 * Telephone Encounter - Latricia Iyer RN - 12/05/2022 1:11 PM EDT Discussed with Mr. Griffin the recommendation from Dr[facility] Mr[facility] is agreeable to proceed with the referral. File sent to Erica Mejias. Latricia Iyer RN December 05, 2022 1:15 PM * Telephone Encounter - Latricia Iyer RN - 11/29/2022 4:13 PM EDT Surgeon Review complete- NPM to offer CABG with Dr. Xiao * Telephone Encounter - Latricia Iyer RN - 11/29/2022 1:37 PM EDT To [facility] for review: Multi-Vessel CAD s/p STEMI + PCI, HF/ICM * Telephone Encounter - Fernanda Whyte - 11/29/2022 10:16 AM EDT Records in Epic and Scanned Documents, Images on Syng[employer]. To NPM. * Telephone Encounter - Fernanda Whyte - 11/24/2022 6:02 PM EDT Patient was referred to Dr. Mejia by Dr. Ibarra for CAD. documented in this encounterCorey Hospital10-11-2023 Miscellaneous Notes* Telephone Encounter - Stevo Arora - 11/23/2022 10:09 AM EDT After sending the message I saw that they are actually referring to [facility]. Call to Dr. Ibarra at [facility]. Informed them that patient has still not secured an appt at [facility] and explained the confustion of the situation. Nurse, Mckenna, is going to forward the message to the nurse that works directly with Dr. Ibarra. I did offer to assist in getting the patient scheduled at [facility] if needed. They are going to reach out to the patient. Stevo Arora MA documented in this encounterCorey Hospital10-06-2023 Miscellaneous Notes* Telephone Encounter - Whit Alcaraz MA - 11/18/2022 8:[address] Luis reviewed patient Henny Echocardiogram and referral information. After review. Dr. Luis advised that the patient would be best cared for at the [facility]. This was based on the patient EF and elevated Creatine. Advised Cielo, at Dr. Ibarra office, of Dr. Luis decision. It was also requestedthat the scheduled repeat Echo on 11/25/22 be canceled. Cielo expressed an understanding advising she would forward the information to Dr. Ibarra. Whit Alcaraz MA *Patient advised of decision. Patient expressed an understanding. * Telephone Encounter - Miguelina Kyle - 11/15/2022 4:02 PM EDT New Patient Referral Requesting- Dr. Janelle Griffin : 1955 Reason- Atherosclerotic heart disease Records Scanned In * Telephone Encounter - Miguelina Kyle - 11/15/2022 12:59 PM EDTSummary: Referral Received a referral from [facility] the office of Dr. Ibarra. Patient is referred for atherosclerotic heart disease. documented in this encounterCorey Hospital09-25-2023 Discharge summary Author Pedro Ibarra [facility] November 08, 2022 9:15am Note Date/Time November 07, 2022 10:20am [facility] Medical Records Department [address] [place] [address] Instructions for Home/Discharge Instructions 11/07/22 1018 MR#: [id number] Acct: [id number] Name: GAMALIEL GRIFFIN Rep #:[id number] : 1955 66 From: Pedor Ibarra MD PCP: Dr. Piedad Han MD Status:AD M MARIA LUISA Discharge Instructions Diet Discharge Diet: 2000 Calorie Control Diet Activity Discharge Activity: Return to Normal Activity Weight Bearing Status: Weight bearing as tolerated Dressing / Incision Call your doctor if your incision/area has: Continuous Slow Oozing, Sudden Increased Bleeding, Increased Pain/ Swelling, Increased Redness, Foul Smelling Discharge and Swelling at the incision site Call your doctor if you observe: Fever of 101 or Higher, Coldness, Increased Pain and Change in Color Follow Up Care Please Follow Up With: Pedro Ibarra MD When: 1-2 weeks Test Results: Test results from this visit will be discussed in further detail at your follow- up appointment, if applicable. Discharge Plan Admission Admit Date/Time: 11/07/22 10:15 Attending Provider: Pedro Ibarra Primary Care Provider: Piedad Han Discharge Orders/Prescriptions Prescriptions: No Action metoprolol succinate 50 mg tablet extended release 24 hr 50 mg PO DAILY insulin glargine [Lantus Solostar U-100 Insulin] 100 unit/mL (3 mL) insulin pen 10 unit subcut BID allopurinol 300 mg tablet 300 mg PO DAILY levothyroxine 175 mcg tablet 175 mcg PO DAILY bupropion HCl [Wellbutrin SR] 150 mg tablet sustained-release 12 hr 150 mg PO BID rosuvastatin 20 mg tablet 20 mg PO DAILY aspirin 81 mg tablet,delayed release (DR/EC) 81 mg PO DAILY Kerendia 10 mg tablet 20 mg PO DAILY Farxiga 10 mg tablet 10 mg PO DAILY Patient Comments: Take 1 tablet by mouth daily hydralazine 25 mg tablet 25 mg PO TID Qty: 90 1RF isosorbide dinitrate 20 mg tablet 20 mg PO TID Qty: 90 1RF Rx Instructions: allow nitrate-free interval of 12-14 hrs per 24-hr period amlodipine 5 mg tablet 5 mg PO DAILY Qty: 90 3RF Referrals / Follow Up: Piedad Han MD [Primary Care Provider] - Disposition Disposition (needs filled in before D/C Order can be placed): Home, Self Care 11/08/22 0915<Electronically signed by Pedro Ibarra MD>Pedro Ibarra MD CC: Dr. 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 [employer] Diabetes mellitus chronic Dyslipidemia chronic Hypertension chronic Ischemic cardiomyopathy [employer] [facility] Work Phone: Evaluation note* Diagnosis Coronary artery disease 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 with angina pectoris (HCC)- Primary Ischemic cardiomyopathy Other specified forms of chronic ischemic heart disease Stage 3 chronic kidney disease, unspecified whether stage 3a or 3b CKD (HCC) Type 2 diabetes mellitus without complication, unspecified whether prison insulin use (HCC) Hypothyroidism, unspecified type Primary hypertension Unspecified essential hypertension Hyperlipidemia, unspecified hyperlipidemia type Chest pain, unspecified type Coronary artery disease 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 with angina pectoris (HCC) Ischemic cardiomyopathy Other specified forms of chronic ischemic heart disease Stage 3 chronic kidney disease, unspecified whether stage 3a or 3b CKD (HCC) Type 2 diabetes mellitus without complication, unspecified 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) Hypothyroidism, unspecified type Primary hypertension Unspecified essential hypertension Hyperlipidemia, unspecified hyperlipidemia type [facility]* Diagnosis Cardiomyopathy, ischemic Other specified forms of chronic ischemic heart disease Coronary artery disease involving [place] heart with angina pectoris, unspecified vessel or lesion type (HCC) Hypertensive kidney disease with stage 3 chronic kidney disease, unspecified whether stage 3a or 3b CKD (HCC) Primary hypertension Unspecified essential hypertension Hyperlipidemia, unspecified hyperlipidemia type Coronary angioplasty status Postsurgical percutaneous transluminal coronary angioplasty status Ischemic cardiomyopathy Other specified forms of chronic ischemic heart disease Heart disease Heart disease, unspecified Coronary artery disease 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 with angina pectoris (HCC) Ischemic cardiomyopathy Other specified forms of chronic ischemic heart disease Stage 3 chronic kidney disease, unspecified whether stage 3a or 3b CKD (HCC) Type 2 diabetes mellitus without complication, unspecified whether terminal operations manager insulin use ([facility]) Hypothyroidism, unspecified type Primary hypertension Unspecified essential hypertension Hyperlipidemia, unspecified hyperlipidemia type [facility]* Diagnosis Chest pain, unspecified type- Primary Surgery follow-up Follow-up examination, following unspecified surgery [facility]* Diagnosis S/P CABG (coronary artery bypass graft)- Primary Postsurgical aortocoronary bypass status [facility]* Diagnosis S/P CABG (coronary artery bypass graft)- Primary Postsurgical aortocoronary bypass status [facility]* Diagnosis Chronic systolic HF (heart failure) ([facility])- Primary Chronic systolic heart failure Cardiomyopathy, ischemic Other specified forms of chronic ischemic heart disease Coronary artery disease involving [place] heart with angina pectoris, unspecified vessel or lesion type (HCC) Hypertensive kidney disease with stage 3 chronic kidney disease, unspecified whether stage 3a or 3b CKD (HCC) Primary hypertension Unspecified essential hypertension Hyperlipidemia, unspecified hyperlipidemia type Coronary angioplasty status Postsurgical percutaneous transluminal coronary angioplasty status Ischemic cardiomyopathy Other specified forms of chronic ischemic heart disease Heart disease Heart disease, unspecified Stage 3b chronic kidney disease (HCC) Type 2 diabetes mellitus with stage 3b chronic kidney disease, with long-term current use of insulin (HCC) [facility]* Diagnosis Type 2 diabetes mellitus with stage 3b chronic kidney disease, with long-term current use of insulin (HCC)- Primary [facility]* Diagnosis Coronary artery disease 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 without angina pectoris- Primary Pure hypercholesterolemia Essential hypertension Unspecified essential hypertension Cardiomyopathy, ischemic Other specified forms of chronic ischemic heart disease documented [facility]* Diagnosis Special screening for malignant neoplasms, colon- Primary Hyperparathyroidism (HCC) Hyperparathyroidism, unspecified [facility]* Diagnosis Screening for colon cancer- Primary Special screening for malignant neoplasms, colon Special screening for malignant neoplasms, colon [facility]* Diagnosis Controlled type 2 diabetes mellitus without complication, unspecified whether prison insulin use (HCC)- Primary documented in this encounter [facility] note* Diagnosis Pre-transplant evaluation for CKD (chronic kidney disease)- Primary Other specified pre-operative examination CKD (chronic kidney disease) stage 4, GFR 15-29 ml/min ([facility]) Chronic kidney disease, Stage IV (severe) Hypertension, unspecified type documented in this encounter [facility] note* Diagnosis Coronary artery disease 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 without angina pectoris- Primary Ischemic cardiomyopathy Other specified forms of chronic ischemic heart disease Pure hypercholesterolemia Essential hypertension Unspecified essential hypertension [facility]* Diagnosis Controlled type 2 diabetes mellitus without complication, unspecified 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)- Primary documented in this encounter [facility] note* Diagnosis Systolic congestive heart failure, unspecified HF chronicity ([facility])- Primary Hx of CABG Postsurgical aortocoronary bypass status Primary hypertension Unspecified essential hypertension Atrial fibrillation with RVR (HCC) Atrial fibrillation Hypertensive kidney disease with stage 3a chronic kidney disease (HCC) Encounter for adjustment and management of automatic implantable cardiac defibrillator documented in this encounter [facility] for referral (narrative)* Outpatient Procedure (Routine) - Authorized Specialty Diagnoses / Procedures Referred By Sergio t [facility] Diagnoses Surgery follow-up Procedures ECG COMPLETE ECG ROUTINE ECG W/LEAST 12 LDS W/I&R Raúl Xiao MD [address] [id number] [place] [address] Referral ID Status Reason Start Date Expiration Date Visits Requested Visits Authorized [id number] Authorized Auto-Generat ed Referral 3 02/01/2024 1 1 [facility] for referral (narrative)* Outpatient Procedure (Routine) - Authorized Specialty Diagnoses / Procedures Referred By Sergio t Referred To [facility] Diagnoses Special screening for malignant neoplasms, colon Procedures COLONOSCOPY SCREENING COLONOSCOPY FLX DX W/COLLJ SPEC WHEN Jennifer Gifford MD [address] [id number] [facility] Disease [address] [address] Referral ID Status Reason Start Date Expiration Date Visits Requested Visits Authorized [id number] Authorized Auto-Generat ed Referral 08/04/2023 08/03/2024 1 1 T [facility] for referral (narrative)* Outpatient Procedure (Routine) - Closed Specialty Diagnoses / Procedures Referred By Sergio luque Referred To [facility] Diagnoses Special screening for malignant neoplasms, colon Procedures COLONOSCOPY SCREENING COLONOSCOPY FLX DX W/COLLJ SPEC WHEN Jennifer Gifford MD [address] [address] [facility] [address] [address] Referral ID Status Reason Start Date Expiration Date V isits Requested Visits Authorized [id number] Closed Auto-Generate d Referral 08/04/2023 08/03/2024 1 1 [facility]No reason for [facility]: Reason for visit Narrative* Outpatient Procedure (Routine) - Closed Specialty Diagnoses / Procedures Referred By Sergio luque Referred To [facility] Diagnoses Special screening for malignant neoplasms, colon Procedures COLONOSCOPY SCREENING COLONOSCOPY FLX DX W/COLLJ SPEC WHEN P[facility] Jennifer Smith MD [address] [address] [facility] [address] [place] [address] Referral ID Status Reason Start Date Expiration Date V isits Requested Visits Authorized [id number] Closed Auto-Generate d Referral 08/04/2023 08/03/2024 1 1 [facility] Chief Complaint and Reason for Visit Chief Complaint EORDER EORDER Chief Complaint EORDER Chief Complaint EORDER SOB Chief Complaint EORDER SOB EORDER Chief Complaint SOB EORDER CHF / SOB ([facility]) Reason for Visit Chronic systolic (co ngestive) heart failure CKD stage 3 due to type 2 diabetes mellitus Coronary artery disease Diabetes mellitus Dyslipidemia Hypertension Ischemic cardiomyopathy Chief Complaint SOB EORDER CHF / SOB ([facility]) E ORDER COD Reason for Visit Chronic systolic (co ngestive) heart failure CKD stage 3 due to type 2 diabetes mellitus Coronary artery disease Diabetes mellitus Dyslipidemia Hypertension Ischemic cardiomyopathy Chief Complaint E ORDER COD EORDER Chief Complaint EORDER EORDER NEED ORDER EORDER Chief Complaint Admit Date EORDERS April 02, 2024 8:12am THORACIC AORTIC ECTASIA April 09 025 9:40am Chief Complaint Admit Date EORDERS April 02, 2024 8:12am THORACIC AORTIC ECTASIA April 09, 2 025 9:40am CKD- [facility] June 04, 2024 7 :34am ELEVATED TSH June 07, 2024 7:5 1am RE-EST CARE (Self) June 07, 2024 3:1 8pm Medication Reconciliation June 21, 2024 3:23pm My heart rate is 30 (feels double beat s) July 01, 2024 10:17am Reason for Visit Admit Date CKD stage 3 due to type 2 diabetes melli s June 07, 2024 3:18pm Coronary artery disease June 07, 2024 3:18pm Dyslipidemia June 07, 2024 3:1 8pm Hypertension June 07, 2024 3:1 8pm Ischemic cardiomyopathy June 07, 2024 3:18pm CKD stage 3 due to type 2 diabetes [facility] June 21, 2024 3:23pm Coronary artery disease June 21, 2024 3: 23pm Dyslipidemia June 21, 2024 3:23pm Hypertension June 21, 2024 3:23pm Ischemic cardiomyopathy June 21, 2024 3: 23pm Chief Complaint Admit Date EORDERS April 02, 2024 8:12am THORACIC AORTIC ECTASIA April 09, 2 025 9:40am CKD- [facility] LAB[facility] June 04, 2024 7 :34am ELEVATED TSH June 07, 2024 7:5 1am RE-EST CARE (Self) June 07, 2024 3:1 8pm Medication Reconciliation June 21, 2024 3:23pm My heart rate is 30 (feels double beat s) July 01, 2024 10:17am TACHYCARDIA July 05, 2024 7:51a m Chief Complaint Admit Date EORDERS April 02, 2024 8:12am THORACIC AORTIC ECTASIA April 09, 2 025 9:40am CKD- [facility] June 04, 2024 7 :34am ELEVATED TSH June 07, 2024 7:5 1am RE-EST CARE (Self) June 07, 2024 3:1 8pm Medication Reconciliation June 21, 2024 3:23pm My heart rate is 30 (feels double beat s) July 01, 2024 10:17am TACHYCARDIA July 05, 2024 7:51a m 2 WK FU July 12, 2024 2:48p m Reason for Visit Admit Date CKD stage 3 due to type 2 diabetes [facility] June 07, 2024 3:18pm Coronary artery disease June 07, 2024 3:18pm Dyslipidemia June 07, 2024 3:1 8pm Hypertension June 07, 2024 3:1 8pm Ischemic cardiomyopathy June 07, 2024 3:18pm CKD stage 3 due to type 2 diabetes [facility] June 21, 2024 3:23pm Coronary artery disease June 21, 2024 3: 23pm Dyslipidemia June 21, 2024 3:23pm Hypertension June 21, 2024 3:23pm Ischemic cardiomyopathy June 21, 2024 3: 23pm CKD stage 3 due to type 2 diabetes melli tus July 12, 2024 2:48pm Coronary artery disease July 12, 2024 2 :48pm Dyslipidemia July 12, 2024 2:48p m Hypertension July 12, 2024 2:48p m Ischemic cardiomyopathy July 12, 2024 2 :48pm Chief Complaint Admit Date THORACIC AORTIC ECTASIA April 09, 2 025 9:40am CKD- [facility] NEW LABS June 04, 2024 7 :34am ELEVATED TSH June 07, 2024 7:5 1am RE-EST CARE (Self) June 07, 2024 3:1 8pm Medication Reconciliation June 21, 2024 3:23pm My heart rate is 30 (feels double beat s) July 01, 2024 10:17am TACHYCARDIA July 05, 2024 7:51a m TACHYCARDIA July 05, 2024 8:05a m 2 WK FU July 12, 2024 2:48p m EORDERS July 30, 2024 2:18 pm Reason for Visit Admit Date CKD stage 3 due to type 2 diabetes [facility] June 07, 2024 3:18pm Coronary artery disease June 07, 2024 3:18pm Dyslipidemia June 07, 2024 3:1 8pm Hypertension June 07, 2024 3:1 8pm Ischemic cardiomyopathy June 07, 2024 3:18pm CKD stage 3 due to type 2 diabetes [facility] June 21, 2024 3:23pm Coronary artery disease June 21, 2024 3: 23pm Dyslipidemia June 21, 2024 3:23pm Hypertension June 21, 2024 3:23pm Ischemic cardiomyopathy June 21, 2024 3: 23pm Atrial tachycardia July 12, 2024 2:48p m CKD stage 3 due to type [address] [facility] July 12, 2024 2:48pm Coronary artery disease July 12, 2024 2 :48pm Dyslipidemia July 12, 2024 2:48p m Hypertension July 12, 2024 2:48p m Ischemic cardiomyopathy July 12, 2024 2 :48pm Chief Complaint Admit Date CKD- [facility]S June 04, 2024 7 :34am ELEVATED TSH June 07, 2024 7:5 1am RE-EST CARE (Self) June 07, 2024 3:1 8pm Medication Reconciliation June 21, 2024 3:23pm My heart rate is 30 (feels double beat s) July 01, 2024 10:17am TACHYCARDIA July 05, 2024 7:51a m TACHYCARDIA July 05, 2024 8:05a m 2 WK FU July 12, 2024 2:48p m EORDERS July 30, 2024 2:18 pm ASSESS EJECTION FRACTION September 26 12:52pm Chief Complaint Admit Date EORDERS July 30, 2024 2:18 pm ASSESS EJECTION FRACTION September 26 12:52pm EORDERS October 23, 2024 7:28am Family History No Family History Records Found Relationship Condition Age at Onset Recorded Date/T carmita mother Chronic obstructive pulmonary disease Unk nown father Myocardial infarction Unknown Advance Directives No Advanced Directives Records Found Advance Directive Response Recorded Date/ Time Advance Directives No October 7:46am Living Will No November 07, 2022 4:27pm Power of Functional Tester [employer] No October 4:27pm Advance Directive Response Recorded Date/ Time Advance Directives No October 6:46am Living Will No November 07, 2022 3:27pm Power of Functional Tester [employer] No October 3:27pm Advance Directive Response Recorded Date/ Time Advance Directives No October 7:46am Advance Directive Response Recorded Date/ Time Living Will No November 07, 2022 4:27pm Do you have a Healthcare Power of Functional Tester Typewriters? No November 07, 2022 4:27pm Advance Directives No October 7:46am Summary Purpose Reason for Referral Specialty Diagnoses / Procedures Referred By Sergio t Referred To Contact [facility] [place] Procedures CARDIOVASCULAR MEDICINE OP FOLLOW UP APPT ORDER Sary Gordon MD [address] [place] [address] [facility] [address] [place] [address] Referral ID Status Reason Start Date Expiration Date Visits Requested Visits Authorized [id number] Ref Not Required PCP Requested Referral 04/18/2023 04/17/2024 1 1 Specialty Diagnoses / Procedures Referred By Contnata t Referred To Contact [facility] Diagnoses CKD (chronic kidney disease) stage 4, GFR 15-29 ml/min (HCC) Hypertension, unspecified type Procedures CONSULT TO [facility] OFFICE/OUTPATIENT NEW HIGH MDM 60 MINUTES CHEST X-RAY, FRONT&LAT ECG ROUTINE ECG W/LEAST 12 LDS TRCG ONLY W/O I&R CT ANGIOGRAPHY CHEST W/CONTRAST/NONCONTRAST CT ABDOMEN W & W/O CONTRAST Ari Suggs MD [address] [place] [address] [facility] [address] [address] Referral ID Status Reason Start Date Expiration Date Visits Requested Visits Authorized [id number] Pending Review Financial Clearance Required - OON Payor 12/22/2023 12/21/2024 99 99 Additional Source Comments Goals (unrecognized section and content) Goals may be documented in a n alternate sectionGoals may be documented in an alternate sectionGoals may be documented in an alternate sectionGoals may be documented in an alternate sectionGoals may be documented in an alternate sectionGoals may be documented in an alternate sectionGoals may be documented in an alternate sectionGoals may be documented in an alternate sectionGoals may be documented in an alternate sectionGoals may be documented in an alternate sectionGoals may be documented in an alternate sectionGoals may be documented in an alternate sectionGoals may be documented in an alternate sectionGoals may be documented in an alternate sectionGoals may be documented in an alternate sectionGoals may be documented in an alternate sectionGoals may be documented in an alternate sectionGoals may be documented in an alternate sectionGoals may be documented in an alternate sectionGoals may be documented in an alternate sectionGoals may be documented in an alternate sectionGoals may be documented in an alternate sectionGoals may be documented in an alternate sectionGoals may be documented in an alternate section Care Teams (unrecognized sec tion and content) Team Status: Active Member Role Status Dates Dr. Piedad Han MD Family Provider Active Dr. Piedad Han MD Primary Care Provider Active Team Status: Inactive Member Role Status Dates Dr. Piedad Han MD Primary Care Provider Active Dr. Myrna Barrios DO Attending Provider Active Team Status: Inactive Member Role Status Dates Dr. Piedad Han MD Primary Care Provider Active Dr. Myrna Barrios DO Attending Provider, Referring P sean Active Team Status: Inactive Member Role Status Dates Dr. Piedad Han MD Primary Care Pr ovider, Attending Provider, Referring Provider Active Team Status: Active Member Role Status Dates Dr. Piedad Han MD Primary Care Provider Active Dr. Primitivo Gilliam MD Attending Provider Active Team Status: Inactive Member Role Status Dates Dr. Piedad Han MD Primary Care Provider, Referr ing Provider Active Dr. Pedro Ibarra MD Attending Provider Active Team Status: Inactive Member Role Status Dates Dr. Piedad Han MD Primary Care Provider Active Dr. Pedro Ibarra MD Attending Provider, Referring Pr ovider Active Team Status: Inactive Member Role Status Dates Dr. Piedad Han MD Primary Care Provider, Referr ing Provider Active Dr. Pedro Ibarra MD Admit Provider, Attending Provid er Active Team Status: Active Member Role Status Dates Dr. Piedad Han MD Primary Care Provider Active Dr. Pedro Ibarra MD Attending Provider Active Team Status: Inactive Member Role Status Dates Dr. Piedad Han MD Primary Care Provider Active Dr. Pedro Ibarra MD Attending Provider Active Copyholder Relationship Specialty Start Date End Date Piedad Han MD [address] [facility] [address] [place], [place] [address] PCP - General Family Medicine 06/01/20 Copyholder Relationship Specialty Start Date End Date Piedad Han MD [address] [facility] [address] [place], [place] [id number] PCP - General Family Medicine 06/01/20 Copyholder Relationship Specialty Start Date End Date Piedad Han MD [address] [facility] [address] [place], [place] [address] PCP - General Family Medicine 06/01/20 Copyholder Relationship Specialty Start Date End Date Piedad Han MD [address] [place] [address] PCP - General Family Medicine 06/01/20 Pedro Ibarra MD [address] [place] [address] Cardiology 11/24/22 Raúl Xiao MD [address] [place], [place] [id number] Surgeon Cardiac Surg 12/05/22 Copyholder Relationship Specialty Start Date End Date Piedad Han MD [address] [facility] [address] [place] [address] PCP - General Family Medicine 06/01/20 Pedro Ibarra MD [address] [place] [address] Cardiology 11/24/22 Raúl Xiao MD [address] [place] [address] Surgeon Cardiac Surg 12/05/22 Copyholder Relationship Specialty Start Date End Date Piedad Han MD [address] [place] [address] PCP - General Family Medicine 06/01/20 Pedro Ibarra MD [address] [place] [address] Cardiology 11/24/22 Raúl Xiao MD [address] [place] [address] Surgeon Cardiac Surg 12/05/22 Copyholder Relationship Specialty Start Date End Date Piedad Han MD [address] [place] [address] [place], [place] [address] PCP - General Family Medicine 06/01/20 Pedro Ibarra MD [address] [place], [place] [address] Cardiology 11/24/22 Raúl Xiao MD [address] [facility] [place], [place] [id number] Surgeon Cardiac Surg 12/05/22 Copyholder Relationship Specialty Start Date End Date Piedad Han MD [address] [place] [address] PCP - General Family Medicine 06/01/20 Pedro Ibarra MD [address] [place], [place] [address] Cardiology 11/24/22 Raúl Xiao MD [address] [place] [address] Surgeon Cardiac Surg 12/05/22 Copyholder Relationship Specialty Start Date End Date Piedad Han MD [address] [place] [address] PCP - General Family Medicine 06/01/20 Pedro Ibarra MD [address] [address] Cardiology 11/24/22 Raúl Xiao MD [address] [place], [place] [id number] Surgeon Cardiac Surg 12/05/22 Copyholder Relationship Specialty Start Date End Date Piedad Han MD [address] [facility] [address] [place] [address] PCP - General Family Medicine 06/01/20 Pedro Ibarra MD [address] [address] Cardiology 11/24/22 Raúl Xiao MD [address] [place] [address] Surgeon Cardiac Surg 12/05/22 Copyholder Relationship Specialty Start Date End Date Piedad Han MD [address] [address] PCP - General Family Medicine 06/01/20 Pedro Ibarra MD [address] [address] Cardiology 11/24/22 Raúl Xiao MD [address] [facility] [place] [address] Surgeon Cardiac Surg 12/05/22 Team Status: Inactive Member Role Status Dates Dr. Piedad Han MD Primary Care Provider Active Beena Jay [employer] Attending Provider, Referring Pr ovider Active Copyholder Relationship Specialty Start Date End Date Piedad Han MD [address] [facility] [address] [place] [address] PCP - General Family Medicine 06/01/20 Pedro Ibarra MD [address] [place] [address] Cardiology 11/24/22 Raúl Xiao MD [address] [place] [address] Surgeon Cardiac Surg 12/05/22 Copyholder Relationship Specialty Start Date End Date Piedad Han MD [address] [facility] [address] [place] [address] PCP - General Family Medicine 06/01/20 Pedro Ibarra MD [address] [place] [address] [place] [address] Cardiology 11/24/22 Raúl Xiao MD [address] [place] [address] Surgeon Cardiac Surg 12/05/22 Copyholder Relationship Specialty Start Date End Date Piedad Han MD [address] [facility] [address] [place] [address] PCP - General Family Medicine 06/01/20 Pedro Ibarra MD [address] [facility] [address] [place] [address] Cardiology 11/24/22 Raúl Xiao MD [address] [place] [address] Surgeon Cardiac Surg 12/05/22 Copyholder Relationship Specialty Start Date End Date Piedad Han MD [address] [facility] [address] [place] [address] PCP - General Family Medicine 06/01/20 Pedro Ibarra MD [address] [place] [address] Cardiology 11/24/22 Raúl Xiao MD [address] [facility] [place] [address] Surgeon Cardiac Surg 12/05/22 Copyholder Relationship Specialty Start Date End Date Piedad Han MD [address] [facility] [address] [place] [address] PCP - General Family Medicine 06/01/20 Pedro Ibarra MD [address] [place] [address] [place] [address] Cardiology 11/24/22 Raúl Xiao MD [address] [facility] [place] [address] Surgeon Cardiac Surg 12/05/22 Copyholder Relationship Specialty Start Date End Date Piedad Han MD [address] [facility] [address] [place], [place] [id number] PCP - General Family Medicine 06/01/20 Pedro Ibarra MD [address] [address] [place] [address] Cardiology 11/24/22 Raúl Xiao MD [address] [place], [place] [id number] Surgeon Cardiac Surg 12/05/22 Copyholder Relationship Specialty Start Date End Date Piedad Han MD [address] [facility] [address] [place] [address] PCP - General Family Medicine 06/01/20 Pedro Ibarra MD [address] [place] [address] [place] [address] Cardiology 11/24/22 Raúl Xiao MD [address] [place], [place] [id number] Surgeon Cardiac Surg 12/05/22 Copyholder Relationship Specialty Start Date End Date Piedad Han MD [address] [facility] [address] [place] [address] PCP - General Family Medicine 06/01/20 Pedro Ibarra MD [address] [facility] [address] [place] [address] Cardiology 11/24/22 Raúl Xiao MD [address] [place], [place] [id number] Surgeon Cardiac Surg 12/05/22 Copyholder Relationship Specialty Start Date End Date Piedad Han MD [address] [facility] [address] [place] [address] PCP - General Family Medicine 06/01/20 Pedro Ibarra MD [address] [place] [address] [place], [place] [address] Cardiology 11/24/22 Raúl Xiao MD [address] [place] [address] Surgeon Cardiac Surg 12/05/22 Yessenia Oconnor DO [address] [place] [address] Cardiology 06/28/23 Copyholder Relationship Specialty Start Date End Date Piedad Han MD [address] [facility] [address] [place] [address] PCP - General Family Medicine 06/01/20 Pedro Ibarra MD [address] [place] [address] Cardiology 11/24/22 Raúl Xiao MD [address] [place] [address] Surgeon Cardiac Surg 12/05/22 Yessenia Oconnor DO [address] [place] [address] Cardiology 06/28/23 Copyholder Relationship Specialty Start Date End Date Piedad Han MD [address] [facility] [address] [place] [address] PCP - General Family Medicine 06/01/20 Pedro Ibarra MD [address] [place] [address] [place] [address] Cardiology 11/24/22 Raúl Xiao MD [address] [place] [address] Surgeon Cardiac Surg 12/05/22 Yessenia Oconnor DO [address] [place] [address] Cardiology 06/28/23 Copyholder Relationship Specialty Start Date End Date Piedad Han MD [address] [facility] [address] [place] [address] PCP - General Family Medicine 06/01/20 Pedro Ibarra MD [address] [facility] [address] [place] [address] Cardiology 11/24/22 Raúl Xiao MD [address] [place] [address] Surgeon Cardiac Surg 12/05/22 Yessenia Oconnor DO [address] [place] [address] Cardiology 06/28/23 Copyholder Relationship Specialty Start Date End Date Piedad Han MD [address] [place] [address] [place] [address] PCP - General Family Medicine 06/01/20 Pedro Ibarra MD [address] [facility] [address] [place] [address] Cardiology 11/24/22 Raúl Xiao MD [address] [place] [address] Surgeon Cardiac Surg 12/05/22 Yessenia Oconnor DO [address] [place] [address] Cardiology 06/28/23 Copyholder Relationship Specialty Start Date End Date Piedad Han MD [address] [facility] [address] [place] [address] PCP - General Family Medicine 06/01/20 Pedro Ibarra MD [address] [facility] [address] [place] [address] Cardiology 11/24/22 Raúl Xiao MD [address] [place] [address] Surgeon Cardiac Surg 12/05/22 Yessenia Oconnor DO [address] [place] [address] Cardiology 06/28/23 Copyholder Relationship Specialty Start Date End Date Piedad Han MD [address] [place] [address] [address] [place] [address] PCP - General Family Medicine 06/01/20 Pedro Ibarra MD [address] [facility] [address] [place] [address] Cardiology 11/24/22 Raúl Xiao MD [address] [place], [place] [address] Surgeon Cardiac Surg 12/05/22 Yessenia Oconnor DO [address] [place] [address] Cardiology 06/28/23 Copyholder Relationship Specialty Start Date End Date Piedad Han MD [address] [facility] [address] [place] [address] PCP - General Family Medicine 06/01/20 Pedro Ibarra MD [address] [place] [address] [place] [address] Cardiology 11/24/22 Raúl Xiao MD [address] [place] [address] Surgeon Cardiac Surg 12/05/22 Yessenia Oconnor DO [address] [place] [address] Cardiology 06/28/23 Copyholder Relationship Specialty Start Date End Date Piedad Han MD [address] [facility] [address] [place] [address] PCP - General Family Medicine 06/01/20 Pedro Ibarra MD [address] [facility] [address] [place] [address] Cardiology 11/24/22 Raúl Xiao MD [address] [place] [address] Surgeon Cardiac Surg 12/05/22 Yessenia Oconnor DO [address] [place] [address] Cardiology 06/28/23 Team Status: Active Member Role Status Dates Dr. Piedad Han MD Primary Care Provider Active Team Status: Inactive Member Role Status Dates Dr. Piedad Han MD Primary Care Provider Active Start: April 02, 2024 End: April 02, 2024 Dr. Piedad Han MD Attending Provider Active Start: April 02, 2024 End: April 02, 2024 Dr. Piedad Han MD Referring Provider Active Start: April 02, 2024 End: April 02, 2024 Team Status: Inactive Member Role Status Dates Dr. Piedad Han MD Primary Care Provider Active Start: April 09, 2024 End: April 09, 2024 Dr. Piedad Han MD Attending Provider Active Start: April 09, 2024 End: April 09, 2024 Dr. Piedad Han MD Referring Provider Active Start: April 09, 2024 End: April 09, 2024 Team Status: Active Member Role Status Dates Dr. Piedad Han MD Primary Care Provider Active Start: April 09, 2024 Dr. Emma Olmos MD Attending Provider Activ e Start: April 09, 2024 Copyholder Relationship Specialty Start Date End Date Piedad Han MD [address] [facility] [address] [place] [address] PCP - General Family Medicine 06/01/20 Pedro Ibarra MD [address] [facility] [address] [place] [address] Cardiology 11/24/22 Raúl Xiao MD [address] [place] [address] Surgeon Cardiac Surg 12/05/22 Copyholder Relationship Specialty Start Date End Date Piedad Han MD [address] [facility] [address] [place], [place] [id number] PCP - General Family Medicine 06/01/20 Pedro Ibarra MD [address] [address] Cardiology 11/24/22 Raúl Xiao MD [address] [place] [address] Surgeon Cardiac Surg 12/05/22 Team Status: Inactive Member Role Status Dates Dr. Piedad Han MD Primary Care Provider Active Start: June 04, 2024 End: June 04, 2024 Dr. Myrna Barrios DO Attending Provider Active Start: June 04, 2024 End: June 04, 2024 Dr. Myrna Barrios DO Referring Provider Active Start: June 04, 2024 End: June 04, 2024 Team Status: Inactive Member Role Status Dates Dr. Piedad Han MD Primary Care Provider Active Start: June 07, 2024 End: June 07, 2024 Dr. Piedad Han MD Attending Provider Active Start: June 07, 2024 End: June 07, 2024 Dr. Piedad Han MD Referring Provider Active Start: June 07, 2024 End: June 07, 2024 Team Status: Inactive Member Role Status Dates Dr. Piedad Han MD Primary Care Provider Active Start: June 07, 2024 End: June 07, 2024 Dr. Piedad Han MD Referring Provider Active Start: June 07, 2024 End: June 07, 2024 Dr. Gilmer Corcoran MD Attending Provider Active Start: June 07, 2024 End: June 07, 2024 Team Status: Inactive Member Role Status Dates Dr. Piedad Han MD Primary Care Provider Active Start: June 21, 2024 End: June 21, 2024 Dr. Piedad Han MD Referring Provider Active Start: June 21, 2024 End: June 21, 2024 SUSHMA Alejandro Attending Provider Active St art: June 21, 2024 End: June 21, 2024 Team Status: Inactive Member Role Status Dates Dr. Piedad Han MD Primary Care Provider Active Start: July 01, 2024 End: July 01, 2024 Dr. Piedad Han MD Referring Provider Active Start: July 01, 2024 End: July 01, 2024 SUSHMA Alejandro Attending Provider Active St art: July 01, 2024 End: July 01, 2024 Team Status: Inactive Member Role Status Dates Dr. Piedad Han MD Primary Care Provider Active Start: July 05, 2024 End: July 05, 2024 SUSHMA Alejandro Attending Provider Active St art: July 05, 2024 End: July 05, 2024 SUSHMA Alejandro Referring Provider Active St art: July 05, 2024 End: July 05, 2024 Team Status: Inactive Member Role Status Dates Dr. Piedad Han MD Primary Care Provider Active Start: July 12, 2024 End: July 12, 2024 Dr. Piedad Han MD Referring Provider Active Start: July 12, 2024 End: July 12, 2024 SUSHMA Alejandro Attending Provider Active St art: July 12, 2024 End: July 12, 2024 Copyholder Relationship Specialty Start Date End Date Piedad Han MD [address] [facility] [address] [place], [place] [id number] PCP - General Family Medicine 06/01/20 Pedro Ibarra MD [address] [facility] [address] [place] [address] Cardiology 11/24/22 Raúl Xiao MD [address] [place], [place] [address] Surgeon Cardiac Surg 12/05/22 Copyholder Relationship Specialty Start Date End Date Piedad Han MD [address] [facility] [address] [place], [place] [id number] PCP - General Family Medicine 06/01/20 Pedro Ibarra MD [address] [facility] 3[address] [place] [address] Cardiology 11/24/22 Raúl Xiao MD [address] [place] [address] Surgeon Cardiac Surg 12/05/22 Team Status: Active Member Role Status Dates Dr. Piedad Han MD Primary Care Provider Active Start: July 05, 2024 Dr. Gilmer Corcoran MD Attending Provider Active Start: July 05, 2024 SUSHMA Alejandro Referring Provider Active St art: July 05, 2024 Team Status: Inactive Member Role Status Dates Dr. Piedad Han MD Primary Care Provider Active Start: July 30, 2024 End: July 30, 2024 Dr. Piedad Han MD Attending Provider Active Start: July 30, 2024 End: July 30, 2024 Dr. Piedad Han MD Referring Provider Active Start: July 30, 2024 End: July 30, 2024 Copyholder Relationship Specialty Start Date End Date Piedad Han MD [facility] Ben [facility] [address] [place] [address] PCP - General Family Medicine 06/01/20 Pedro Ibarra MD [address] [facility] 3A [place] [address] Cardiology 11/24/22 Raúl Xiao MD [address] [place] [address] Surgeon Cardiac Surg 12/05/22 Team Status: Active Member Role/Relationship Status Dates Dr. Piedad Han MD Primary Care Provider Active Team Status: Inactive Member Role/Relationship Status Dates Dr. Piedad Han MD Primary Care Provider Active Start: June 04, 2024 End: June 04, 2024 Dr. Myrna Barrios DO Attending Provider Active Start: June 04, 2024 End: June 04, 2024 Dr. Myrna Barrios DO Referring Provider Active Start: June 04, 2024 End: June 04, 2024 Team Status: Inactive Member Role/Relationship Status Dates Dr. Piedad Han MD Primary Care Provider Active Start: June 07, 2024 End: June 07, 2024 Dr. Piedad Han MD Attending Provider Active Start: June 07, 2024 End: June 07, 2024 Dr. Piedad Han MD Referring Provider Active Start: June 07, 2024 End: June 07, 2024 Team Status: Inactive Member Role/Relationship Status Dates Dr. Piedad Han MD Primary Care Provider Active Start: June 07, 2024 End: June 07, 2024 Dr. Piedad Han MD Referring Provider Active Start: June 07, 2024 End: June 07, 2024 Dr. Gilmer Corcoran MD Attending Provider Active Start: June 07, 2024 End: June 07, 2024 Team Status: Inactive Member Role/Relationship Status Dates Dr. Piedad Han MD Primary Care Provider Active Start: June 21, 2024 End: June 21, 2024 Dr. Piedad Han MD Referring Provider Active Start: June 21, 2024 End: June 21, 2024 SUSHMA Alejandro Attending Provider Active St art: June 21, 2024 End: June 21, 2024 Team Status: Inactive Member Role/Relationship Status Dates Dr. Piedad Han MD Primary Care Provider Active Start: July 01, 2024 End: July 01, 2024 Dr. Piedad Han MD Referring Provider Active Start: July 01, 2024 End: July 01, 2024 SUSHMA Alejandro Attending Provider Active St art: July 01, 2024 End: July 01, 2024 Team Status: Inactive Member Role/Relationship Status Dates Dr. Piedad Han MD Primary Care Provider Active Start: July 05, 2024 End: July 05, 2024 SUSHMA Alejandro Attending Provider Active St art: July 05, 2024 End: July 05, 2024 SUSHMA Alejandro Referring Provider Active St art: July 05, 2024 End: July 05, 2024 Team Status: Active Member Role/Relationship Status Dates Dr. Piedad Han MD Primary Care Provider Active Start: July 05, 2024 Dr. Gilmer Corcoran MD Attending Provider Active Start: July 05, 2024 SUSHMA Alejandro Referring Provider Active St art: July 05, 2024 Team Status: Inactive Member Role/Relationship Status Dates Dr. Piedad Han MD Primary Care Provider Active Start: July 12, 2024 End: July 12, 2024 Dr. Piedad Han MD Referring Provider Active Start: July 12, 2024 End: July 12, 2024 SUSHMA Alejandro Attending Provider Active St art: July 12, 2024 End: July 12, 2024 Team Status: Inactive Member Role/Relationship Status Dates Dr. Piedad Han MD Primary Care Provider Active Start: July 30, 2024 End: July 30, 2024 Dr. Piedad Han MD Attending Provider Active Start: July 30, 2024 End: July 30, 2024 Dr. Piedad Han MD Referring Provider Active Start: July 30, 2024 End: July 30, 2024 Team Status: Inactive Member Role/Relationship Status Dates Dr. Piedad Han MD Primary Care Provider Active Start: September 26, 2024 End: September 26, 2024 SUSHMA Alejandro Attending Provider Active St art: September 26, 2024 End: September 26, 2024 SUSHMA Alejandro Referring Provider Active St art: September 26, 2024 End: September 26, 2024 Team Status: Active Member Role/Relationship Status Dates Dr. Piedad Han MD Primary Care Provider Active Start: September 26, 2024 Dr. Primitivo Gilliam MD Attending Provider Active S tart: September 26, 2024 Team Status: Active Member Role/Relationship Status Dates Dr. Piedad Han MD Primary care physician Active Team Status: Inactive Member Role/Relationship Status Dates Dr. Piedad Han MD Primary care physician Active Start: July 30, 2024 End: July 30, 2024 Dr. Piedad Han MD Attending physician Active Start: July 30, 2024 End: July 30, 2024 Dr. Piedad Han MD Referring Provider Active Start: July 30, 2024 End: July 30, 2024 Team Status: Inactive Member Role/Relationship Status Dates Dr. Piedad Han MD Primary care physician Active Start: September 26, 2024 End: September 26, 2024 SUSHMA Alejandro Attending physician Active S tart: September 26, 2024 End: September 26, 2024 SUSHMA Alejandro Referring Provider Active St art: September 26, 2024 End: September 26, 2024 Team Status: Active Member Role/Relationship Status Dates Dr. Piedad Han MD Primary care physician Active Start: September 26, 2024 Dr. Primitivo Gilliam MD Attending physician Active Start: September 26, 2024 Team Status: Inactive Member Role/Relationship Status Dates Dr. Piedad Han MD Primary care physician Active Start: October 23, 2024 End: October 23, 2024 Dr. Piedad Han MD Attending physician Active Start: October 23, 2024 End: October 23, 2024 Dr. Piedad Han MD Referring Provider Active Start: October 23, 2024 End: October 23, 2024 Source Comments (unrecognize d section and content) In the event this informatio n is protected by the Federal Confidentiality of Alcohol and Drug Abuse Patient Records regulations: The Federal rules restrict any use of the information to criminally investigate or prosecute any alcohol or drug abuse patient.[facility] HospitalIn the event this information is protected by the Federal Confidentiality of Alcohol and Drug Abuse Patient Records regulations: The Federal rules restrict any use of the information to criminally investigate or prosecute any alcohol or drug abuse patient.[facility] HospitalIn the event this information is protected by the Federal Confidentiality of Alcohol and Drug Abuse Patient Records regulations: The Federal rules restrict any use of the information to criminally investigate or prosecute any alcohol or drug abuse patient.[facility] HospitalIn the event this information is protected by the Federal Confidentiality of Alcohol and Drug Abuse Patient Records regulations: The Federal rules restrict any use of the information to criminally investigate or prosecute any alcohol or drug abuse patient.[facility] HospitalIn the event this information is protected by the Federal Confidentiality of Alcohol and Drug Abuse Patient Records regulations: The Federal rules restrict any use of the information to criminally investigate or prosecute any alcohol or drug abuse patient.[facility] HospitalIn the event this information is protected by the Federal Confidentiality of Alcohol and Drug Abuse Patient Records regulations: The Federal rules restrict any use of the information to criminally investigate or prosecute any alcohol or drug abuse patient.[facility] HospitalIn the event this information is protected by the Federal Confidentiality of Alcohol and Drug Abuse Patient Records regulations: The Federal rules restrict any use of the information to criminally investigate or prosecute any alcohol or drug abuse patient.[facility] HospitalIn the event this information is protected by the Federal Confidentiality of Alcohol and Drug Abuse Patient Records regulations: The Federal rules restrict any use of the information to criminally investigate or prosecute any alcohol or drug abuse patient.[facility] HospitalIn the event this information is protected by the Federal Confidentiality of Alcohol and Drug Abuse Patient Records regulations: The Federal rules restrict any use of the information to criminally investigate or prosecute any alcohol or drug abuse patient.[facility] HospitalIn the event this information is protected by the Federal Confidentiality of Alcohol and Drug Abuse Patient Records regulations: The Federal rules restrict any use of the information to criminally investigate or prosecute any alcohol or drug abuse patient.[facility] HospitalIn the event this information is protected by the Federal Confidentiality of Alcohol and Drug Abuse Patient Records regulations: The Federal rules restrict any use of the information to criminally investigate or prosecute any alcohol or drug abuse patient.[facility] HospitalIn the event this information is protected by the Federal Confidentiality of Alcohol and Drug Abuse Patient Records regulations: The Federal rules restrict any use of the information to criminally investigate or prosecute any alcohol or drug abuse patient.[facility] HospitalIn the event this information is protected by the Federal Confidentiality of Alcohol and Drug Abuse Patient Records regulations: The Federal rules restrict any use of the information to criminally investigate or prosecute any alcohol or drug abuse patient.[facility] HospitalIn the event this information is protected by the Federal Confidentiality of Alcohol and Drug Abuse Patient Records regulations: The Federal rules restrict any use of the information to criminally investigate or prosecute any alcohol or drug abuse patient.[facility] HospitalIn the event this information is protected by the Federal Confidentiality of Alcohol and Drug Abuse Patient Records regulations: The Federal rules restrict any use of the information to criminally investigate or prosecute any alcohol or drug abuse patient.[facility] HospitalIn the event this information is protected by the Federal Confidentiality of Alcohol and Drug Abuse Patient Records regulations: The Federal rules restrict any use of the information to criminally investigate or prosecute any alcohol or drug abuse patient.[facility] HospitalIn the event this information is protected by the Federal Confidentiality of Alcohol and Drug Abuse Patient Records regulations: The Federal rules restrict any use of the information to criminally investigate or prosecute any alcohol or drug abuse patient.[facility] HospitalIn the event this information is protected by the Federal Confidentiality of Alcohol and Drug Abuse Patient Records regulations: The Federal rules restrict any use of the information to criminally investigate or prosecute any alcohol or drug abuse patient.[facility] HospitalIn the event this information is protected by the Federal Confidentiality of Alcohol and Drug Abuse Patient Records regulations: The Federal rules restrict any use of the information to criminally investigate or prosecute any alcohol or drug abuse patient.[facility] HospitalIn the event this information is protected by the Federal Confidentiality of Alcohol and Drug Abuse Patient Records regulations: The Federal rules restrict any use of the information to criminally investigate or prosecute any alcohol or drug abuse patient.[facility] HospitalIn the event this information is protected by the Federal Confidentiality of Alcohol and Drug Abuse Patient Records regulations: The Federal rules restrict any use of the information to criminally investigate or prosecute any alcohol or drug abuse patient.[facility] HospitalIn the event this information is protected by the Federal Confidentiality of Alcohol and Drug Abuse Patient Records regulations: The Federal rules restrict any use of the information to criminally investigate or prosecute any alcohol or drug abuse patient.[facility] HospitalIn the event this information is protected by the Federal Confidentiality of Alcohol and Drug Abuse Patient Records regulations: The Federal rules restrict any use of the information to criminally investigate or prosecute any alcohol or drug abuse patient.[facility] HospitalIn the event this information is protected by the Federal Confidentiality of Alcohol and Drug Abuse Patient Records regulations: The Federal rules restrict any use of the information to criminally investigate or prosecute any alcohol or drug abuse patient.[facility] HospitalIn the event this information is protected by the Federal Confidentiality of Alcohol and Drug Abuse Patient Records regulations: The Federal rules restrict any use of the information to criminally investigate or prosecute any alcohol or drug abuse patient.[facility] HospitalIn the event this information is protected by the Federal Confidentiality of Alcohol and Drug Abuse Patient Records regulations: The Federal rules restrict any use of the information to criminally investigate or prosecute any alcohol or drug abuse patient.[facility] HospitalIn the event this information is protected by the Federal Confidentiality of Alcohol and Drug Abuse Patient Records regulations: The Federal rules restrict any use of the information to criminally investigate or prosecute any alcohol or drug abuse patient.[facility] HospitalIn the event this information is protected by the Federal Confidentiality of Alcohol and Drug Abuse Patient Records regulations: The Federal rules restrict any use of the information to criminally investigate or prosecute any alcohol or drug abuse patient.[facility] HospitalIn the event this information is protected by the Federal Confidentiality of Alcohol and Drug Abuse Patient Records regulations: The Federal rules restrict any use of the information to criminally investigate or prosecute any alcohol or drug abuse patient.[facility] HospitalIn the event this information is protected by the Federal Confidentiality of Alcohol and Drug Abuse Patient Records regulations: The Federal rules restrict any use of the information to criminally investigate or prosecute any alcohol or drug abuse patient.[facility] HospitalIn the event this information is protected by the Federal Confidentiality of Alcohol and Drug Abuse Patient Records regulations: The Federal rules restrict any use of the information to criminally investigate or prosecute any alcohol or drug abuse patient.[facility] HospitalIn the event this information is protected by the Federal Confidentiality of Alcohol and Drug Abuse Patient Records regulations: The Federal rules restrict any use of the information to criminally investigate or prosecute any alcohol or drug abuse patient.[facility] HospitalIn the event this information is protected by the Federal Confidentiality of Alcohol and Drug Abuse Patient Records regulations: The Federal rules restrict any use of the information to criminally investigate or prosecute any alcohol or drug abuse patient.[facility] HospitalIn the event this information is protected by the Federal Confidentiality of Alcohol and Drug Abuse Patient Records regulations: The Federal rules restrict any use of the information to criminally investigate or prosecute any alcohol or drug abuse patient.[facility] HospitalIn the event this information is protected by the Federal Confidentiality of Alcohol and Drug Abuse Patient Records regulations: The Federal rules restrict any use of the information to criminally investigate or prosecute any alcohol or drug abuse patient.[facility] HospitalIn the event this information is protected by the Federal Confidentiality of Alcohol and Drug Abuse Patient Records regulations: The Federal rules restrict any use of the information to criminally investigate or prosecute any alcohol or drug abuse patient.[facility] HospitalIn the event this information is protected by the Federal Confidentiality of Alcohol and Drug Abuse Patient Records regulations: The Federal rules restrict any use of the information to criminally investigate or prosecute any alcohol or drug abuse patient.[facility] HospitalIn the event this information is protected by the Federal Confidentiality of Alcohol and Drug Abuse Patient Records regulations: The Federal rules restrict any use of the information to criminally investigate or prosecute any alcohol or drug abuse patient.[facility] HospitalIn the event this information is protected by the Federal Confidentiality of Alcohol and Drug Abuse Patient Records regulations: The Federal rules restrict any use of the information to criminally investigate or prosecute any alcohol or drug abuse patient.[facility] HospitalIn the event this information is protected by the Federal Confidentiality of Alcohol and Drug Abuse Patient Records regulations: The Federal rules restrict any use of the information to criminally investigate or prosecute any alcohol or drug abuse patient.[facility] Reason for Visit (unrecogniz ed section and content) Reason Comments Appointment Patient Update Reason Comments Referral Information Reason Comments Education Of Patient/family Reason Comments Cardiac Preop Checklist Specialty Diagnoses / Procedures Referred By Contac t Referred To Contact Cardiac Surg Diagnoses Cardiomyopathy, ischemic Coronary artery disease involving [place] heart with angina pectoris, unspecified vessel or lesion type (HCC) Hypertensive kidney disease with stage 3 chronic kidney disease, unspecified whether stage 3a or 3b CKD (HCC) Primary hypertension Hyperlipidemia, unspecified hyperlipidemia type Coronary angioplasty status Ischemic cardiomyopathy Heart disease Procedures CARDIOTHORACIC PREOP EVALUATION OFFICE/OUTPATIENT NEW HIGH MDM 60-74 MINUTES Raúl Xiao MD [address] [place] [address] Referral ID Status Reason Start Date Expiration Date V isits Requested Visits Authorized [id number] Closed PCP Requested Referral 12/09/2022 12/09/2023 1 1 Reason Comments 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 Assessment Reason Comments Follow Up Reason Comments Cardiac Rehab Reason Comments Refill Request Reason Comments Follow Up Specialty Diagnoses / Procedures Referred By Contac t Referred To Contact Diagnoses Cardiomyopathy, ischemic Coronary artery disease involving [place] heart with angina pectoris, unspecified vessel or lesion type (HCC) Hypertensive kidney disease with stage 3 chronic kidney disease, unspecified whether stage 3a or 3b CKD (HCC) Primary hypertension Hyperlipidemia, unspecified hyperlipidemia type Coronary angioplasty status Ischemic cardiomyopathy Heart disease Coronary artery disease of [place] artery of [place] heart with stable angina pectoris (HCC) Chronic systolic HF (heart failure) (HCC) Stage 3b chronic kidney disease (HCC) Type 2 diabetes mellitus with stage 3b chronic kidney disease, with long-term current use of insulin (HCC) Procedures CARDIOVASCULAR MEDICINE OP FOLLOW UP APPT ORDER Elizabeth Chamberlain MD [address] [place] [address] Referral ID Status Reason Start Date Expiration Date Visits Requested Visits Authorized [id number] Ref Not Required PCP Requested Referral 3 01/09/2024 1 1 Reason Comments type 2 diabetes Reason Comments CARD New Patient Consult Consult to Card io - 01/09/23 - Dr Thornton 01/26- 02/02/23 - CAD01/26/2023: CABGx4: SULLIVAN to LAD SVG to RPDA/SVG to OM2 /Left Radial to RamusPt doing very well. Exercises daily with gym equipments and walking. No cardiac concerns. Reason Comments Consult Colonoscopy consulta tion. Reason Comments Type 2 Diabetes Reason Comments Referral - Kidney Txp Reason Comments Referral - Kidney Txp Closed-referred to o early Reason Comments CARD Follow Up 6 Month No new cardiac co ncerns Reason Comments T2DM Reason Comments Orders MSC Reason Comments Addended OV Notes to DME Reason Comments Orders CGM sensors Reason Comments New Patient transfer care from [facility] Reason Comments Appointment (unrecognized sect ion and content) No Status Records FoundNo Status Records FoundNo Status Records FoundNo Status Records FoundNo Status Records Found INFORMATION SOURCE (unrecogn ized section and content) DATE CREATED AUTHOR 2022 [facility] DATE CREATED AUTHOR AUTHOR'S ORGANIZ ATION 03/26/2023 [facility] DATE CREATED AUTHOR AUTHOR'S ORGANIZ ATION 07/17/2024 [facility] DATE CREATED AUTHOR AUTHOR'S ORGANIZ ATION 08/08/2024 [facility] DATE CREATED AUTHOR AUTHOR'S ORGANIZ ATION 11/20/2024 [facility] FOR RECORDS PERTAINING TO PATIENTS WHO ARE OR HAVE BEEN ENROLLED IN A CHEMICAL DEPENDENCY/SUBSTANCEABUSE PROGRAM, SOME INFORMATION MAY BE OMITTED. This clinical summary was aggregated from multiple sources. Caution should be exercised in using it in the provision of clinical care. This summary normalizes information from multiple sources, and as a consequence, information in this document may materially change the coding, format and clinical context of patient data. In addition, data may be omitted in some cases. CLINICAL DECISIONS SHOULD BE BASED ON THE PRIMARY CLINICAL RECORDS. [employer] provides no warranty or guarantee of the accuracy or completeness of information in this document.
--- OUTSIDE RECORDS SUMMARY | 2024-11-29 14:49 | XMS RPT_ITS | CCD ---
Author Organization [facility] CliniSyri Care Team Providers Care Ergonomics Technician Name Role Phone Dr. Piedad Han Primary Care Provider [phone] Dr. Primitivo Gilliam Attending Provider Dr. Piedad [...] Provider Dr. Piedad Han MD Referring Provider MONICA HOYT Attending Unavailable PIEDAD HAN Primary Care Unavailable YSESENIA OCONNOR Attending UnavailPIEDAD Ivan Primary Care Unavailable [...] Piedad Han MD Primary Care Provider [phone] Dr. Piedad Han MD Attending Provider [phone] Dr. Piedad Han MD Referring Provider Dr. Primitivo Gilliam MD Attending Provider Dr. Piedad Han MD Primary Care Physician Dr. Piedad Han MD Attending Physician Dr. Piedad Han MD Referring Provider Roman Wilkins Attending Physician [phone] Roman Wilkins Referring Provider Dr. Primitivo Gilliam MD Attending Physician Roman Pham Referring Unavailable Roman Pham Attending [...] Lisinopril; Translations: [LISINOPRIL] Drug Allergy 09-30-2022 Swelling [facility] Comment on above: lip swelling (1 source) Lisinopril Drug Allergy 07-12-2024 [facility] Repository Medications Current Medications Medication Drug Class(es) [...] above: Stool softner daily polyethylene glycol 3350 53768 mg powder for oral solution (6 sources) Osmotic Laxative Start: 5 polyethylene glycol 3350 306437 mg / potassium chloride 2970 mg / sodium bicarbonate 6740 mg / sodium chloride 5860 mg / sodium sulfate 88643 mg powder for oral solution (1 source) [...] bedtime Start: 06-07-2024 [facility] Rosuvastatin 40 mg tablet Active 40 mg PO AT BEDTIME June 07, 2024 12:00am Start: 09-30-2022 End: 06-07-2024 take 1 tablet by mouth once daily Rosuvastatin 20 mg tablet Discontinued 20 mg PO DAILY September 30, 2022 12:00am June 07, 2024 3:25pm take 2 tablets by mo [facility] once daily rosuvastatin (CRESTOR) 20 mg [...] Comment on above: Take 2 tablets by [facility] every 4 hours as needed (mild to [...] Comment on above: Take 1 capsule by [facility] three times daily as needed for Cough. [...] Intraprocedure docusate sodium 50 mg / sennosides, custodial 8.6 mg oral tablet (20 sources) Start [...] Coronary arteriosclerosis; Translations: [Atherosclerotic heart disease of [place] coronary artery without angina pectoris] Onset: 11-07-2022 10-11-2022 Chronic Comment on above: Per cath done [address] Ibarra @ [facility] Prox LAD-ALLEN Cypher Rx 3.5 x 18 [...] aftercare (20 sources) Insulin dose changed; Translations: [electroformer (current) use of insulin] Onset: 01-30-2023 01-31-2023 Episodic Other aftercare (1 source) electroformer (current) use of insulin; Translations: [Type 2 [...] Auto (Unsp spec) [#/Vol] 1.04 10*3/uL 0.83-4.51 [facility] Absolute neutrophil countOrd ered By: Piedad Han on 10-23-2024 Neutrophils (Bld) [#/Vol] 4.6 10*3/uL 2.0-7.7 [facility] Anion gap in Serum or Plasma Ordered By: Piedad Han on 10-23-2024 Anion gap [Moles/Vol] 12 mmol/L 06-27 [facility] Automated lymphocyte count a s percentage of total leukocytesOrdered By: Piedad Han on 10-23-2024 Lymphocytes/100 WBC Auto (Unsp spec) 15.9 % Low [facility] BUN/creatinine ratioOrdered By: Piedad Han on 10-23-2024 Urea nitrogen/Creatinine [Mass ratio] 16.9 mg/mg 12-02 [facility] Basophil percentageOrdered B y: Piedad Han on 10-23-2024 Basophils/100 WBC (Bld) 0.8 % 0-1 [facility] Bilirubin Test strip Ql (U)O rdered By: Piedad Han on 10-23-2024 Bilirubin Ql (U) Negative Negative [facility] Bilirubin, totalOrdered By: Piedad Han on 10-23-2024 Bilirubin [Mass/Vol] 0.26 mg/dL 0.00-1.30 [facility] CBC W/Diff, Automatedon 10-14 Absolute Lymph 1.04 X10 3/uL Normal 0.83-4.51 [facility] Comment on above: Order Comment: Order Date: 08/08/24Order Info: 018- - CBCD Performed By: #### L 400.0001, L501.0900 #### [facility] [address] [place], [address] Absolute Neut 4.6 X10 3/uL Normal 2.0-7.7 [facility] Comment on above: Order Comment: Order Date: 08/08/24Order Info: 018- - CBCD Performed By: #### L 400.0001, L501.0900 #### [facility] [address] [place], [address] Basophils/100 WBC (Bld) 0.8 % Normal 0-1 [facility] Comment on above: Order Comment: Order Date: 08/08/24Order Info: 0184- - CBCD Performed By: #### L 400.0001, L501.0900 #### [facility] [address] [place], [address] Eosinophils/100 WBC (Bld) 4.6 % Normal 0-5 [facility] Comment on above: Order Comment: Order Date: 08/08/24Order Info: 018-1 - CBCD Performed By: #### L 400.0001, L501.0900 #### [facility] [address] [place], [address] Erythrocyte distribution width (RBC) [Ratio] 13.6 % Normal 11.6-14.6 [facility] Comment on above: Order Comment: Order Date: 08/08/24Order Info: 018- - CBCD Performed By: #### L 400.0001, L501.0900 #### [facility] [address] [place], [address] Hematocrit (Bld) [Volume fraction] 40.4 % Normal 40-54 [facility] Comment on above: Order Comment: Order Date: 08/08/24Order Info: 018- - CBCD Performed By: #### L 400.0001, L501.0900 #### [facility] [address] [place], [address] Hemoglobin (Bld) [Mass/Vol] 12.9 g/dL Low 13.0-16.5 [facility] Comment on above: Order Comment: Order Date: 08/08/24Order Info: 018- - CBCD Performed By: #### L 400.0001, L501.0900 #### [facility] [address] [place], [address] IG% 0.500 Normal 0.0-0.9 [facility] Comment on above: Order Comment: Order Date: 08/08/24Order Info: [id number] - CBCD Result Comment: IG% - Immature Granulocytes (promyelocytes, myelocytes and metamyelocytes) > 1% indicates that a LEFT SHIFT is Present. Performed By: #### L 400.0001, L501.0900 #### [facility] [address] [place], [address] Lymphocytes/100 WBC (Bld) 15.9 % Low 19-41 [facility] Comment on above: Order Comment: Order Date: 08/08/24Order Info: 4-1 - CBCD Performed By: #### L 400.0001, L501.0900 #### [facility] [address] [place], [address] MCH (RBC) [Entitic mass] 30.7 pg Normal 27.0-32.0 [facility] Comment on above: Order Comment: Order Date: 08/08/24Order Info: 0184-1 - CBCD Performed By: #### L 400.0001, L501.0900 #### [facility] [address] [place], [address] MCHC (RBC) [Mass/Vol] 31.9 g/dL Low 32-36 [facility] Comment on above: Order Comment: Order Date: 08/08/24Order Info: 0184-1 - CBCD Performed By: #### L 400.0001, L501.0900 #### [facility] [address] [place], [address] MCV (RBC) [Entitic vol] 96.2 fL High 80-94 [facility] Comment on above: Order Comment: Order Date: 08/08/24Order Info: 0184-1 - CBCD Performed By: #### L 400.0001, L501.0900 #### [facility] [address] [place], [address] Monocytes/100 WBC (Bld) 8.6 % Normal 0-10 [facility] Comment on above: Order Comment: Order Date: 08/08/24Order Info: 0184-1 - CBCD Performed By: #### L 400.0001, L501.0900 #### [facility] [address] [place], [address] Neutrophils/100 WBC (Bld) 69.6 % Normal 47-70 [facility] Comment on above: Order Comment: Order Date: 08/08/24Order Info: 0184-1 - CBCD Performed By: #### L 400.0001, L501.0900 #### [facility] [address] [place], [address] Nucleated RBC (Bld) [#/Vol] 0 10*3/uL Normal 0-5 [facility] Comment on above: Order Comment: Order Date: 08/08/24Order Info: 018- - CBCD Performed By: #### L 400.0001, L501.0900 #### [facility] [address] [place], [address] Platelet mean volume (Bld) [Entitic vol] 9.1 fL Normal 6.2-12.0 [facility] Comment on above: Order Comment: Order Date: 08/08/24Order Info: 018- - CBCD Performed By: #### L 400.0001, L501.0900 #### [facility] [address] [place], [address] Platelets (Bld) [#/Vol] 204 10*3/uL Normal 150-450 [facility] Comment on above: Order Comment: Order Date: 08/08/24Order Info: 018-1 - CBCD Performed By: #### L 400.0001, L501.0900 #### [facility] [address] [place], [address] RBC (Bld) [#/Vol] 4.20 10*6/uL Low 4.6-6.2 [facility] Comment on above: Order Comment: Order Date: 08/08/24Order Info: [id number] - CBCD Performed By: #### L 400.0001, L501.0900 #### [facility] [address] [place], [address] RDW SD 47.9 fl High 35.1-43.9 [facility] Comment on above: Order Comment: Order Date: 08/08/24Order Info: 183- - CBCD Performed By: #### L 400.0001, L501.0900 #### [facility] [address] [place], [address] WBC (Bld) [#/Vol] 6.5 10*3/uL Normal 4.4-11.0 [facility] Comment on above: Order Comment: Order Date: 08/08/24Order Info: 183- - CBCD Performed By: #### L 400.0001, L501.0900 #### [facility] [address] [place], [address] Calculated very low density lipoprotein (VLDL) cholesterol measurementOrdered By: Piedad Han on 10-23-2024 Calculated very low density lipoprotein (VLDL) cholesterol measurement 21 mg/dL 5-40 [facility] Carbon dioxide, total [Moles /volume] in Central venous bloodOrdered By: Piedad Han on 10-23-2024 CO2 [Moles/Vol] 23.2 mmol/L 21.0-32.0 [facility] Chloride assayOrdered By: May Han on 10-23-2024 Chloride [Moles/Vol] 101 mmol/L 98-108 [facility] Comprehensive Metabolic Prof ilon 10-23-2024 Albumin [Mass/Vol] 3.8 g/dL Normal 3.4-4.8 [facility] Comment on above: Order Comment: Order Date: 08/08/24Order Info: [id number] - CMPOrder Info: [id number] - LIPIDOrder Info: [id number] - URICOrder Info: [id number] - MGOrder Info: [id number] - TSHOrder Info: [id number] - T4F Performed By: #### L 400.0001, L501.0900 #### [facility] [address] [place], [address] Albumin/Globulin [Mass ratio] 1.3 {ratio} Normal 0.9-2.4 [facility] Comment on above: Order Comment: Order Date: 08/08/24Order Info: [id number] - CMPOrder Info: [id number] - LIPIDOrder Info: [id number] - URICOrder Info: [id number] - MGOrder Info: [id number] - TSHOrder Info: 3024-7 - T4F Performed By: #### L 400.0001, L501.0900 #### [facility] [address] [place], [address] ALK PHOS 109 U/L Normal 40-129 [facility] Comment on above: Order Comment: Order Date: 08/08/24Order Info: [id number] - CMPOrder Info: [id number] - LIPIDOrder Info: [id number] - URICOrder Info: [id number] - MGOrder Info: [id number] - TSHOrder Info: 3024-7 - T4F Performed By: #### L 400.0001, L501.0900 #### [facility] [address] [place], [address] ALT [Catalytic activity/Vol] 54 U/L High <=46 [facility] Comment on above: Order Comment: Order Date: 08/08/24Order Info: [id number] - CMPOrder Info: [id number] - LIPIDOrder Info: [id number] - URICOrder Info: [id number] - MGOrder Info: [id number] - TSHOrder Info: 3024-7 - T4F Performed By: #### L 400.0001, L501.0900 #### [facility] [address] [place], [address] AST [Catalytic activity/Vol] 39 U/L High <=37 [facility] Comment on above: Order Comment: Order Date: 08/08/24Order Info: [id number] - CMPOrder Info: [id number] - LIPIDOrder Info: [id number] - URICOrder Info: [id number] - MGOrder Info: [id number] - TSHOrder Info: 3024-7 - T4F Performed By: #### L 400.0001, L501.0900 #### [facility] [address] [place], [address] Bilirubin [Mass/Vol] 0.26 mg/dL Normal 0.00-1.30 [facility] Comment on above: Order Comment: Order Date: 08/08/24Order Info: [id number] - CMPOrder Info: [id number] - LIPIDOrder Info: [id number] - URICOrder Info: [id number] - MGOrder Info: [id number] - TSHOrder Info: 3024-7 - T4F Performed By: #### L 400.0001, L501.0900 #### [facility] [address] [place], [address] BUN/CRE 16.9 RATIO Normal 10-20 [facility] Comment on above: Order Comment: Order Date: 08/08/24Order Info: [id number] - CMPOrder Info: [id number] - LIPIDOrder Info: [id number] - URICOrder Info: [id number] - MGOrder Info: [id number] - TSHOrder Info: 3024-7 - T4F Performed By: #### L 400.0001, L501.0900 #### [facility] [address] [place], [address] Calcium [Mass/Vol] 9.3 mg/dL Normal 7.6-11.0 [facility] Comment on above: Order Comment: Order Date: 08/08/24Order Info: [id number] - CMPOrder Info: [id number] - LIPIDOrder Info: [id number] - URICOrder Info: [id number] - MGOrder Info: [id number] - TSHOrder Info: 3024-7 - T4F Performed By: #### L 400.0001, L501.0900 #### [facility] [address] [place], [address] Chloride [Moles/Vol] 101 mmol/L Normal 98-108 [facility] Comment on above: Order Comment: Order Date: 06/26/25Order Info: [id number] - CMPOrder Info: [id number] - LIPIDOrder Info: [id number] - URICOrder Info: [id number] - MGOrder Info: [id number] - TSHOrder Info: 3024-7 - T4F Performed By: #### L 400.0001, L501.0900 #### [facility] [address] [place], [address] CO2 [Moles/Vol] 23.2 mmol/L Normal 21.0-32.0 [facility] Comment on above: Order Comment: Order Date: 08/08/24Order Info: [id number] - CMPOrder Info: [id number] - LIPIDOrder Info: [id number] - URICOrder Info: [id number] - MGOrder Info: [id number] - TSHOrder Info: 3024-7 - T4F Performed By: #### L 400.0001, L501.0900 #### [facility] [address] [place], [address] Creatinine [Mass/Vol] 2.81 mg/dL High 0.70-1.20 [facility] Comment on above: Order Comment: Order Date: 08/08/24Order Info: [id number] - CMPOrder Info: [id number] - LIPIDOrder Info: [id number] - URICOrder Info: [id number] - MGOrder Info: [id number] - TSHOrder Info: 3024-7 - T4F Performed By: #### L 400.0001, L501.0900 #### [facility] [address] [place], [address] GAP 12 Normal 5-15 [facility] Comment on above: Order Comment: Order Date: 08/08/24Order Info: 0786-1 - CMPOrder Info: [id number] - LIPIDOrder Info: [id number] - URICOrder Info: [id number] - MGOrder Info: [id number] - TSHOrder Info: 3024-7 - T4F Performed By: #### L 400.0001, L501.0900 #### [facility] [address] [place], [address] GFR/1.73 sq M.predicted among non-blacks MDRD (S/P/Bld) [Vol rate/Area] 24 mL/min/{1.73_m2} Low >60 [facility] Comment on above: Order Comment: Order Date: 08/08/24Order Info: [id number] - CMPOrder Info: [id number] - LIPIDOrder Info: [id number] - URICOrder Info: [id number] - MGOrder Info: 6-3 - TSHOrder Info: 3024-7 - T4F Result Comment: mL/m in/1.73m2 CKD-EPI Creatinine Equation (2020) Performed By: #### L 400.0001, L501.0900 #### [facility] [address] [place], [address] Globulin (S) [Mass/Vol] 2.9 g/dL Normal 2.2-4.2 [facility] Comment on above: Order Comment: Order Date: 08/08/24Order Info: [id number] - CMPOrder Info: [id number] - LIPIDOrder Info: [id number] - URICOrder Info: [id number] - MGOrder Info: 6-3 - TSHOrder Info: 3024-7 - T4F Performed By: #### L 400.0001, L501.0900 #### [facility] [address] [place], [address] Glucose [Mass/Vol] 136 mg/dL High 70-99 [facility] Comment on above: Order Comment: Order Date: 08/08/24Order Info: [id number] - CMPOrder Info: [id number] - LIPIDOrder Info: [id number] - URICOrder Info: [id number] - MGOrder Info: [id number] - TSHOrder Info: 3024-7 - T4F Performed By: #### L 400.0001, L501.0900 #### [facility] [address] [place], [address] Potassium [Moles/Vol] 4.6 mmol/L Normal 3.3-5.1 [facility] Comment on above: Order Comment: Order Date: 08/08/24Order Info: [id number] - CMPOrder Info: [id number] - LIPIDOrder Info: [id number] - URICOrder Info: [id number] - MGOrder Info: [id number] - TSHOrder Info: 3024-7 - T4F Performed By: #### L 400.0001, L501.0900 #### [facility] [address] [place], [address] Sodium [Moles/Vol] 136 mmol/L Normal 133-145 [facility] Comment on above: Order Comment: Order Date: 08/08/24Order Info: [id number] - CMPOrder Info: [id number] - LIPIDOrder Info: [id number] - URICOrder Info: [id number] - MGOrder Info: [id number] - TSHOrder Info: 3024-7 - T4F Performed By: #### L 400.0001, L501.0900 #### [facility] [address] [place], [address] T PROT 6.6 g/dL Normal 5.9-8.4 [facility] Comment on above: Order Comment: Order Date: 08/08/24Order Info: [id number] - CMPOrder Info: [id number] - LIPIDOrder Info: [id number] - URICOrder Info: [id number] - MGOrder Info: [id number] - TSHOrder Info: 3024-7 - T4F Performed By: #### L 400.0001, L501.0900 #### [facility] [address] [place], [address] Urea nitrogen [Mass/Vol] 48 mg/dL High 4-19 [facility] Comment on above: Order Comment: Order Date: 08/08/24Order Info: [id number] - CMPOrder Info: [id number] - LIPIDOrder Info: [id number] - URICOrder Info: [id number] - MGOrder Info: [id number] - TSHOrder Info: 3024-7 - T4F Performed By: #### L 400.0001, L501.0900 #### [facility] [address] [place], [address] Eosinophil percentageOrdered By: Piedad Han on 10-23-2024 Eosinophils/100 WBC (Bld) 4.6 % 0-5 [facility] Erythrocyte distribution wid th ratioOrdered By: Piedad Han on 10-23-2024 Erythrocyte distribution width (RBC) [Ratio] 13.6 % 11.6-14.6 [facility] Erythrocyte distribution wid th standard deviationOrdered By: Piedad Han on 10-23-2024 Erythrocyte distribution width (RBC) [Ratio] 47.9 fl High 35.1-43.9 [facility] Glomerular filtration rate ( GFR) estimation/1.73 sq m using serum, plasma, or whole bOrdered By: Piedad Han on 10-23-2024 GFR/1.73 sq M.predicted among non-blacks MDRD (S/P/Bld) [Vol rate/Area] 24 mL/min/{1.73_m2} Low >60 [facility] Comment on above: mL/min/1.73m2 CKD-EP I Creatinine Equation (2020) Hematocrit Auto (Bld) [Volum e fraction]Ordered By: Piedad Han on 10-23-2024 Hematocrit (Bld) [Volume fraction] 40.4 % 40-54 [facility] Hemoglobin A1con 10-23-2024 HbA1c (Bld) [Mass fraction] 6.4 % High <=5.6 [facility] Comment on above: Order Comment: Order Date: 08/08/24Order Info: [id number] - A1C Result Comment: Norm al < 5.7 % Prediabetic 5.7 - 6.4 % Diabetic >or= 6.5 % Please note range changes. Performed By: #### L 400.0001, L501.0900 #### [facility] [address] [place], [address] Hemoglobin A1c percentageOrd ered By: Piedad Han on 10-23-2024 HbA1c (Bld) [Mass fraction] 6.4 % High <5.7 [facility] Comment on above: Normal < 5.7 % Predi abetic 5.7 - 6.4 % Diabetic >or= 6.5 % Please note range changes. Hemoglobin measurementOrdere d By: Piedad Han on 10-23-2024 Hemoglobin (Bld) [Mass/Vol] 12.9 g/dL Low 13.0-16.5 [facility] Immature granulocytes/100 WB C Auto (Bld)Ordered By: Piedad Han on 10-23-2024 Immature granulocytes/100 WBC (Bld) 0.500 % 0.0-0.9 [facility] Comment on above: IG% - Immature Granu locytes (promyelocytes, myelocytes and metamyelocytes) > 1% indicates that a LEFT SHIFT is Present. Ketones Test strip Ql (U)Ord ered By: Piedad Han on 10-23-2024 Ketones Ql (U) Negative Negative [facility] LDL calc ser/plasOrdered By: Piedad Han on 10-23-2024 Cholesterol in LDL [Mass/Vol] 59 mg/dL [facility] Comment on above: Slcvlltlfo=135-814 m g/dL & Higher Ehqd=360 mg/dL or greaterFriedwald Equation for LDL-C Laboratory - Chemistry and C hemistry - challengeOrdered By: Piedad Han on 10-23-2024 AST [Catalytic activity/Vol] 39 U/L High <38 [facility] Lipid Profileon 10-23-2024 CHOL:HDL 2.70 Normal [facility] Comment on above: Order Comment: Order Date: 08/08/24Order Info: [id number] - CMPOrder Info: [id number] - LIPIDOrder Info: [id number] - URICOrder Info: [id number] - MGOrder Info: [id number] - TSHOrder Info: [id number] - T4F Performed By: #### L 400.0001, L501.0900 #### [facility] [address] [place], [place], [address] Cholesterol [Mass/Vol] 127 mg/dL Normal <=200 [facility] Comment on above: Order Comment: Order Date: 08/08/24Order Info: [id number] - CMPOrder Info: [id number] - LIPIDOrder Info: [id number] - URICOrder Info: [id number] - MGOrder Info: 3 - TSHOrder Info: [id number] - T4F Result Comment: Chol esterol level, Desirable <200 mg/dL Borderline high cholesterol 200-239 mg/dL High cholesterol >=240 mg/dL Recommendations of the NCEP Adult Treatment Panel for the following risk-cutoff thresholds for the [place] population. Performed By: #### L 400.0001, L501.0900 #### [facility] [address] [place], [address] Cholesterol in HDL [Mass/Vol] 47 mg/dL Normal [facility] Comment on above: Order Comment: Order Date: 08/08/24Order Info: 86-1 - CMPOrder Info: [id number] - LIPIDOrder Info: [id number] - URICOrder Info: [id number] - MGOrder Info: 3 - TSHOrder Info: 3023-08 T4F Result Comment: [place] onal Cholesterol Education Program (NCEP) guidelines: <40 mg/dL: Low HDL-cholesterol (major risk factor for CHD) >= 60 mg/dL: High HDL-cholesterol (negative risk factor for CHD) HDL-cholesterol is affected by a number of factors, e.g. smoking, exercise, hormones, sex and age. Performed By: #### L 400.0001, L5.0900 #### [facility] [address] [place], [address] Cholesterol in LDL [Mass/Vol] 59 mg/dL Normal [facility] Comment on above: Order Comment: Order Date: 08/08/24Order Info: [id number] - CMPOrder Info: [id number] - LIPIDOrder Info: [id number] - URICOrder Info: [id number] - MGOrder Info: 3 - TSHOrder Info: [id number] - T4F Result Comment: Bord iamhzd=032-078 mg/dL Higher Gsys=694 mg/dL or greater Friedwald Equation for LDL-C Performed By: #### L 400.0001, L501.0900 #### [facility] [address] [place], [address] Cholesterol in VLDL [Mass/Vol] 21 mg/dL Normal 5-40 [facility] Comment on above: Order Comment: Order Date: 08/08/24Order Info: [id number] - CMPOrder Info: [id number] - LIPIDOrder Info: [id number] - URICOrder Info: [id number] - MGOrder Info: [id number] - TSHOrder Info: 3024-7 - T4F Performed By: #### L 400.0001, L501.0900 #### [facility] [address] [place], [address] Triglyceride [Mass/Vol] 104 mg/dL Normal [facility] Comment on above: Order Comment: Order Date: 08/08/24Order Info: [id number] - CMPOrder Info: [id number] - LIPIDOrder Info: [id number] - URICOrder Info: [id number] - MGOrder Info: [id number] - TSHOrder Info: [id number] - T4F Result Comment: The drugs N-Acetylcysteine and Metamizole may falsely depress this assay. Normal range: <150 mg/dL Borderline High: 150-199 mg/dL High: 200-499 mg/dL Very High: >500 mg/dL Performed By: #### L 400.0001, L501.0900 #### [facility] [address] [place], [address] MCV (mean corpuscular volume ) determinationOrdered By: Piedad Han on 10-23-2024 MCV (RBC) [Entitic vol] 96.2 fL High 80-94 [facility] Magnesiumon 10-23-2024 Magnesium [Mass/Vol] 2.4 mg/dL High 1.5-2.2 [facility] Comment on above: Order Comment: CLEAN CATCH Performed By: #### L 400.0001 #### [facility] [address] [place], [address] Magnesium measurement (mass/ volume)Ordered By: Piedad Han on 10-23-2024 Magnesium (Unsp spec) [Mass/Vol] 2.4 mg/dL High 1.5-2.2 [facility] Mean corpuscular hemoglobin (MCH) determinationOrdered By: Piedad Han on 10-23-2024 MCH (RBC) [Entitic mass] 30.7 pg 27.0-32.0 [facility] Mean corpuscular hemoglobin concentration (MCHC) determinationOrdered By: Piedad Han on 10-23-2024 MCHC (RBC) [Mass/Vol] 31.9 g/dL Low 32-36 [facility] Mean platelet volume determi nationOrdered By: Piedad Han on 10-23-2024 Platelet mean volume (Bld) [Entitic vol] 9.1 fL 6.2-12.0 [facility] Microalbumin,Random Urineon 10-23-2024 MICROALBUMIN,UR 1119.0 mg/L Normal <20 mg/L [facility] Comment on above: Order Comment: Order Date: 08/08/24Order Info: [id number] - MIALB Performed By: #### L 400.0001, L501.0900 #### [facility] [address] [place] [address]. [place], [address] Microscopic analysis of urin e for red blood cells (RBC)Ordered By: Piedad Han on 10-23-2024 Microscopic analysis of urine for red blood cells (RBC) 0-5 SEEN /hpf 0-5 [facility] Monocyte percentageOrdered B y: Piedad Han on 10-23-2024 Monocytes/100 WBC (Bld) 8.6 % 0-10 [facility] Mucus LM Ql (Urine sed)Order ed By: Piedad Han on 10-23-2024 Mucus Ql (Urine sed) 0 SEEN /hpf [facility] Neutrophil percentageOrdered By: Piedad Han on 10-23-2024 Neutrophils/100 WBC (Bld) 69.6 % 47-70 [facility] Nitrite Test strip Ql (U)Ord ered By: Piedad Han on 10-23-2024 Nitrite Ql (U) Negative Negative [facility] Nucleated red blood cell per centageOrdered By: Piedad Han on 10-23-2024 Nucleated RBC/100 WBC (Bld) [Ratio] 0 % 0-5 [facility] Platelet countOrdered By: May Han on 10-23-2024 Platelets (Bld) [#/Vol] 204 10*3/uL 150-450 [facility] Potassium measurement (mass/ volume)Ordered By: Piedad Han on 10-23-2024 Potassium (Unsp spec) [Mass/Vol] 4.6 mmol/L 3.3-5.1 [facility] Protein Test strip Ql (U)Ord ered By: Piedad Han on 10-23-2024 Protein Ql (U) 500 mg/dl High Negative [facility] RBC Auto (Bld) [#/Vol]Ordere d By: Piedad Han on 10-23-2024 RBC (Bld) [#/Vol] 4.20 10*6/uL Low 4.6-6.2 [facility] Screening total cholesterol/ high density lipoprotein (HDL) cholesterol ratioOrdered By: Piedad Han on 10-23-2024 Cholesterol.total/Choles terol in HDL [Mass ratio] 2.70 {ratio} [facility] Serum creatinine measurement (mass/volume)Ordered By: Piedad Han on 10-23-2024 Creatinine [Mass/Vol] 2.81 mg/dL High 0.70-1.20 [facility] Serum globulin measurementOr dered By: Piedad Han on 10-23-2024 Globulin (S) [Mass/Vol] 2.9 g/dL 2.2-4.2 [facility] Serum glucose measurement (m ass/volume)Ordered By: Piedad Han on 10-23-2024 Glucose [Mass/Vol] 136 mg/dL High 70-99 [facility] Serum or plasma alanine menezes otransferase (ALT) measurementOrdered By: Piedad Han on 10-23-2024 ALT [Catalytic activity/Vol] 54 U/L High <47 [facility] Serum or plasma albumin priyanka urement (mass/volume)Ordered By: Piedad Han on 10-23-2024 Albumin [Mass/Vol] 3.8 g/dL 3.4-4.8 [facility] Serum or plasma albumin/glob ulin mass ratioOrdered By: Piedad Han on 10-23-2024 Albumin/Globulin [Mass ratio] 1.3 {ratio} 0.9-2.4 [facility] Serum or plasma alkaline enio sphatase measurementOrdered By: Piedad Han on 10-23-2024 ALP [Catalytic activity/Vol] 109 U/L 40-129 [facility] Serum or plasma calcium priyanka urement (mass/volume)Ordered By: Piedad Han on 10-23-2024 Calcium [Mass/Vol] 9.3 mg/dL 7.6-11.0 [facility] Serum or plasma cholesterol in HDL measurement (mass/volume)Ordered By: Piedad Han on 10-23-2024 Cholesterol in HDL [Mass/Vol] 47 mg/dL >40 [facility] Comment on above: National Cholesterol Education Program (NCEP) guidelines:<40 mg/dL: Low HDL-cholesterol (major risk factor for CHD)>= 60 mg/dL: High HDL-cholesterol (negative risk factor for CHD)HDL-cholesterol is affected by a number of factors, e.g. smoking, exercise, hormones, sex and age. Serum or plasma cholesterol measurement (mass/volume)Ordered By: Piedad Han on 10-23-2024 Cholesterol [Mass/Vol] 127 mg/dL <201 [facility] Comment on above: Cholesterol level, D esirable <200 mg/dLBorderline high cholesterol 200-239 mg/dLHigh cholesterol >=240 mg/dLRecommendations of the NCEP Adult Treatment Panel for the following risk-cutoff thresholds for the [place] population. Serum or plasma urea nitroge n measurement (mass/volume)Ordered By: Piedad Han on 10-23-2024 Urea nitrogen [Mass/Vol] 48 mg/dL High 4-19 [facility] Serum or plasma uric acid me asurement (mass/volume)Ordered By: Piedad Han on 10-23-2024 Urate [Mass/Vol] 3.8 mg/dL 3.5-7.2 [facility] Comment on above: The drugs N-Acetylcy steine and Metamizole may falsely depress this assay. Sodium levelOrdered By: Piedad Han on 10-23-2024 Sodium [Moles/Vol] 136 mmol/L 133-145 [facility] Squamous epithelial cells de tection in urine sediment by light microscopyOrdered By: Piedad Han on 10-23-2024 Epithelial cells.squamous LM Ql (Urine sed) 0 SEEN /hpf 0-5 [facility] T4 Free Directon 10-23-2024 T4 FREE DIRECT 1.30 ng/dL Normal 0.76-1.46 [facility] Comment on above: Order Comment: CLEAN CATCH Performed By: #### L 400.0001 #### [facility] [address] [place], [place], [address] T4 freeOrdered By: Piedad eubankser on 10-23-2024 Free T4 [Mass/Vol] 1.30 ng/dL 0.76-1.46 [facility] TSH DL <= 0.005 mIU/L QnOrde red By: Piedad Han on 10-23-2024 TSH Qn 1.020 uIU/mL 0.300-4.20 0 [facility] Thyroid Stim Hormone (TSH)on 10-23-2024 TSH 1.020 uIU/mL Normal 0.300-4.20 0 [facility] Comment on above: Order Comment: CLEAN CATCH Performed By: #### L 400.0001 #### [facility] [address] [place], [place], [id number] Total proteinOrdered By: Zhang Han on 10-23-2024 Protein [Mass/Vol] 6.6 g/dL 5.9-8.4 [facility] Triglycerides measurementOrd ered By: Piedad Han on 10-23-2024 Triglyceride [Mass/Vol] 104 mg/dL <199 [facility] Comment on above: The drugs N-Acetylcy steine and Metamizole may falsely depress this assay. Normal range: <150 mg/dLBorderline High: 150-199 mg/dLHigh: 200-499 mg/dLVery High: >500 mg/dL Uric Acidon 10-23-2024 URIC 3.8 mg/dL Normal 3.5-7.2 [facility] Comment on above: Order Comment: Order Date: 08/08/24Order Info: [id number] - CMPOrder Info: [id number] - LIPIDOrder Info: [id number] - URICOrder Info: [id number] - MGOrder Info: [id number] - TSHOrder Info: [id number] - T4F Result Comment: The drugs N-Acetylcysteine and Metamizole may falsely depress this assay. Performed By: #### L 400.0001, L501.0900 #### [facility] [address] [place], [address] Urinalysis, Completeon 10-23 RBC 0-5 SEEN Normal 0-5 [facility] Comment on above: Order Comment: CLEAN CATCH Performed By: #### L 400.0001 #### [facility] [address] [place], [address] BACTERIA 0 SEEN Normal None Seen [facility] Comment on above: Order Comment: CLEAN CATCH Performed By: #### L 400.0001 #### [facility] [address] [place], [address] EPI,SQUAMOUS 0 SEEN Normal 0-5 [facility] Comment on above: Order Comment: CLEAN CATCH Performed By: #### L 400.0001 #### [facility] [address] [place], [address] Mucus Ql (Urine sed) 0 SEEN Normal [facility] Comment on above: Order Comment: CLEAN CATCH Performed By: #### L 400.0001 #### [facility] [address] [place], [address] WBC 0 SEEN Normal 0-5 [facility] Comment on above: Order Comment: CLEAN CATCH Performed By: #### L 400.0001 #### [facility] [address] [place], [address] Urine albumin measurement wi detection limit of 20 mg/L or less (mass/volume)Ordered By: Piedad Han on 10-23-2024 Albumin DL <= 20 mg/L (U) [Mass/Vol] 1119.0 mg/L <20 mg/L [facility] Urine clarityOrdered By: Zhang Han on 10-23-2024 Clarity (U) Clear Clear [facility] Urine color determinationOrd ered By: Piedad Han on 10-23-2024 Color (U) Straw Yellow [facility] Urine glucose detectionOrder ed By: Piedad Han on 10-23-2024 Glucose Ql (U) 1000 mg/dl High Normal [facility] Urine leukocyte esterase det ection by dipstickOrdered By: Piedad Han on 10-23-2024 Leukocyte esterase Test strip Ql (U) Negative Negative [facility] Urine pHOrdered By: Piedad ring on 10-23-2024 pH (U) 6.0 [pH] 5.0 - 8.0 [facility] Urine sediment bacteria coun t by microscopy (number/high power field)Ordered By: Piedad Han on 10-23-2024 Bacteria LM.HPF (Urine sed) [#/Area] 0 /[HPF] None Seen [facility] Urine specific gravity measu rementOrdered By: Piedad Han on 10-23-2024 Specific gravity (U) [Rel density] 1.010 1.002-1.03 0 [facility] Urine urobilinogen measureme ntOrdered By: Piedad Han on 10-23-2024 Urobilinogen Ql (U) Normal mg/dl Normal [facility] White blood cell (WBC) count Ordered By: Piedad Han on 10-23-2024 WBC (Bld) [#/Vol] 6.5 10*3/uL 4.4-11.0 [facility] White blood cell countOrdere d By: Piedad Han on 10-23-2024 White blood cell count 0 SEEN /hpf 0-5 [facility] Echo, Limited Studyon 2024 Echo, Limited Study [facility] [address] [place] [address] Echo, Limited Study 09/26/24 1302 MR#: [id number] Acct: [id number] Name: GAMALIEL GRIFFIN Rep #: [id number] : 1955 68 From: Primitivo Gilliam MD Attending Dr: Roman Pham PA Status: REG CL I Ordering Dr: Roman Pham Date: 09/26/24 Location: [facility] Sex: M C Admitted: Reason For [...] segmental systolic dysfunction (see wall motion). Septal Nebo : Akinetic. Lateral Nebo : Hypokinetic. Mid-anteroseptal : Hypokinetic. There are [...] Dictated: 09/26/24 1302 Date Transcribed: 09/26/24 160 Resident Care Aid: Signed Normal [facility] Limited echocardiogram repor tOrdered By: Primitivo Gilliam on 09-26-2024 Study report [facility] [address] [place] [address] Echo, Limited Study 09/26/24 1302 MR#: [id number] Acct: [id number] Name: GAMALIEL GRIFFIN Rep #:[id number] : 1955 68 From: Primitivo Thakkar Attending Dr: SUSHMA Alejandro atus: REG CLI Ordering Dr: Roman Pham Date: 09/26/24 Location: [facility] Sex: M C Admitted: Reason For Study Reason For Study: Assess EF Procedure This was a limited 2D transthoracic echocardiogram. Myocardial strain analysis was performed in this exam to aid in the assessment of cardiac function. Exam performed in department. Left Ventricle Normal LV size. The left ventricular ejection fraction is 45 %. Mild to moderatesegmental systolic dysfunction (see wall motion). Septal Nebo : Akinetic. Lateral Nebo : Hypokinetic. Mid-anteroseptal : Hypokinetic. There are [...] Dictated: 09/26/24 1302 Date Transcribed: 09/26/24 160 Resident Care Aid: Signed [facility] Work Phone: Chung 08-06-2024 [facility] Telephone (CARDWS) -- GABYGAMALIEL Ariane ([id number]) 1955 Date Time Provider Department 08/06/24 ELENA JORDAN During your visit today, we recorded the following information about you: Stevo Arora MA 08/06/2024 12:24 PM Signed Pt needs to be scheduled with Dr. Ortiz in and also needs a 3 month follow up with Dr. Jordan. Pt is asking if he can do both on the same day in [place]. Will see if Card Clinical can assist. [...] - Blood-Glucose Meter,Continuous (FREESTYLE YAZMIN 3 READER) [facility] DISPENSE ONE READER KIT. USE FOR CONTINUOUS [...] mouth two times a day. - Insulin [place], Disposable, (BD ULTRA-FINE KENN PEN NEEDLE) 32 [...] Status:Closed by STEVO ARORA on 08/07/24 Normal [facility] Basic metabolic 2000 panelOr dered By: Allie Anand on 08-05-2024 Anion gap [Moles/Vol] 13 mmol/L 8 - 15 mmol/L [facility] Calcium [Mass/Vol] 9.7 mg/dL 8.5 - 10. 2 mg/dL [facility] Chloride [Moles/Vol] 99 mmol/L 98 - 10 7 mmol/L [facility] CO2 [Moles/Vol] 23 mmol/L 22 - 30 mmol/L [facility] Creatinine [Mass/Vol] 2.47 mg/dL High 0.73 - 1.22 mg/dL [facility] GFR/1.73 sq M.predicted among non-blacks MDRD (S/P/Bld) [Vol rate/Area] 28 mL/min/{1.73_m2} Low - PINF [facility] Comment on above: Estimated Glomerular Filtration [...] 131 mg/dL High 74 - 99 mg/dL [facility] Comment on above: The [place] Diabete s Association (ADA) provides guidance for [...] Standards of Medical Care in Diabetes 2016, [place] Diabetes Association. Diabetes Care. 2016.39(Suppl 1). Interpretation and review of laboratory results Abnormal [facility] Potassium [Moles/Vol] 4.6 mmol/L 3.7 - 5.1 mmol/L [facility] Sodium [Moles/Vol] 135 mmol/L Low 136 - 144 mmol/L [facility] Urea nitrogen [Mass/Vol] 46 mg/dL High 9 - 24 mg/dL [facility] Basic metabolic 2000 panelon 08-05-2024 Anion gap [Moles/Vol] 13 mmol/L Normal 8-15 [facility] Comment on above: Order Comment: Nasir grace Type: BLOOD SPECIMEN Ordering Facility: [facility] Address: [address] [place] [address] Performed By: #### L IPNF #### [facility] CLIA [id number] [address] [place] [address] [place] Calcium [Mass/Vol] 9.7 mg/dL Normal 8.5-10.2 [facility] Comment on above: Order Comment: Nasir grace Type: BLOOD SPECIMEN Ordering Facility: [facility] Address: [address] [place] [address] Performed By: #### L IPNF #### [facility] CLIA [id number] [address] [place] [address] [place] Chloride [Moles/Vol] 99 mmol/L Normal 98-107 [facility] Comment on above: Order Comment: Speci men Type: BLOOD SPECIMEN Ordering Facility: [facility] Address: [address] [place] [address] Performed By: #### L IPNF #### [facility] CLIA [id number] [address] [place] [address] [place] CO2 [Moles/Vol] 23 mmol/L Normal 22-30 [facility] Comment on above: Order Comment: Speci men Type: BLOOD SPECIMEN Ordering Facility: [facility] Address: [address] [place] [address] Performed By: #### L IPNF #### [facility] CLIA [id number] [address] [place] [address] [place] Creatinine [Mass/Vol] 2.47 mg/dL High 0.73-1.22 [facility] Comment on above: Order Comment: Speci men Type: BLOOD SPECIMEN Ordering Facility: [facility] Address: [address] [place] [address] Performed By: #### L IPNF #### [facility] CLIA [id number] [address] [place] [address] [place] Creatinine and Glomerular filtration rate.predicted panel (S/P/Bld) 28 mL/min/1.73m??? Low >=60 [facility] Comment on above: Order Comment: Speci men Type: BLOOD SPECIMEN Ordering Facility: [facility] Address: [address] [place] [address] Result Comment: Soraya mated Glomerular Filtration Rate [...] GFR. Performed By: #### L IPNF #### [facility] CLIA [id number] [address] [place] [address] [place] Glucose [Mass/Vol] 131 mg/dL High 74-99 [facility] Comment on above: Order Comment: Nasir grace Type: BLOOD SPECIMEN Ordering Facility: [facility] Address: [address] [place] [address] Result Comment: The [place] Diabetes Association (ADA) provides guidance for cutoff [...] Standards of Medical Care in Diabetes 2016, [place] Diabetes Association. Diabetes Care. 2016.39(Suppl 1). Performed By: #### L IPNF #### [facility] CLIA [id number] [address] [place] [address] [place] Potassium [Moles/Vol] 4.6 mmol/L Normal 3.7-5.1 [facility] Comment on above: Order Comment: Nasir grace Type: BLOOD SPECIMEN Ordering Facility: [facility] Address: [address] [place] [address] Performed By: #### L IPNF #### [facility] CLIA [id number] [address] [place] [address] [place] Sodium [Moles/Vol] 135 mmol/L Low 136-144 [facility] Comment on above: Order Comment: Nasir grace Type: BLOOD SPECIMEN Ordering Facility: [facility] Address: [address] [place] [address] Performed By: #### L IPNF #### [facility] CLIA [id number] [address] [place] [address] [place] Urea nitrogen [Mass/Vol] 46 mg/dL High 9-24 [facility] Comment on above: Order Comment: Speci men Type: BLOOD SPECIMEN Ordering Facility: [facility] Address: [address] [place] [address] Performed By: #### L IPNF #### [facility] CLIA [id number] [address] [place] [address] OF [facility] CNOVon 08-05-2024 CNOV Office Visit (CARDWS ) -- GAMALIEL GRIFFIN ([id number]) 1955 M Date Time Provider Department 08/05/24 8:20 AM ELENA JORDAN During your visit today, we recorded the following information about you: Pulse Respiration Blood pressure Weight 52/minute 12/minute 120/60 81.6 kg Height 1.778 m Elena Jordan MD 08/05/2024 8:46 AM Signed Elena Jordan MD Interventional Cardiology [address] [phone] Chief Complaint Patient presents with: New Patient: transfer care from [facility] HISTORY OF PRESENT ILLNESS: Mr. Griffin is [...] work. He underwent CABG on 01/26/2023 at [facility], involving SULLIVAN to the LAD, vein grafts to the PDA and first obtuse marginal, and left radial artery to the ramus. He previously had 4 stents placed in 2008 at [facility] following an [place]. A recent echocardiogram revealed an LVEF of [...] as of 05/29/2024. He reports that his academic support director, Dr. Barrios, believes dialysis is inevitable but notes that his kidney function has remained stable for the past 2 years, which he attributes to his exercise routine. He denies any history of dialysis. He is currently under the care of Dr. Corcoran, his philosophy instructor, and Dr. Barrios, his academic support director, both at [facility]. He is scheduled for a follow-up echocardiogram on 09/04/2024 and sees his academic support director every 4 to 6 months, with the next appointment in November. 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 USE FOR CONTINUOUS [...] U-100 IN (more content not included)... Normal [facility] Absolute lymphocyte countOrd ered By: Piedad Han on 07-30-2024 Lymphocytes Auto (Unsp spec) [#/Vol] 0.99 10*3/uL 0.83-4.51 [facility] Absolute neutrophil countOrd ered By: Piedad Han on 07-30-2024 Neutrophils (Bld) [#/Vol] 4.3 10*3/uL 2.0-7.7 [facility] Anion gap in Serum or Plasma Ordered By: Piedad Han on 07-30-2024 Anion gap [Moles/Vol] 12 mmol/L 5-15 [facility] Automated lymphocyte count a s percentage of total leukocytesOrdered By: Piedad Han on 07-30-2024 Lymphocytes/100 WBC Auto (Unsp spec) 15.7 % Low 19-41 [facility] BUN/creatinine ratioOrdered By: Piedad Han on 07-30-2024 Urea nitrogen/Creatinine [Mass ratio] 19.2 mg/mg 10-20 [facility] Basophil percentageOrdered B y: Piedad Han on 07-30-2024 Basophils/100 WBC (Bld) 0.5 % 0-1 [facility] Bilirubin, totalOrdered By: Piedad Han on 07-30-2024 Bilirubin [Mass/Vol] 0.25 mg/dL 0.00-1.30 [facility] CBC W/Diff, Automatedon 07-14 Absolute Lymph 0.99 X10 3/uL Normal 0.83-4.51 [facility] Comment on above: Order Comment: Urine , Random Performed By: #### L 400.0001, L501.0900 #### [facility] [address] [place], [address] Absolute Neut 4.3 X10 3/uL Normal 2.0-7.7 [facility] Comment on above: Order Comment: Urine , Random Performed By: #### L 400.0001, L501.0900 #### [facility] [address] [place], [address] Basophils/100 WBC (Bld) 0.5 % Normal 0-1 [facility] Comment on above: Order Comment: Urine , Random Performed By: #### L 400.0001, L501.0900 #### [facility] [address] [place], [address] Eosinophils/100 WBC (Bld) 5.2 % High 0-5 [facility] Comment on above: Order Comment: Urine , Random Performed By: #### L 400.0001, L501.0900 #### [facility] [address] [place], [address] Erythrocyte distribution width (RBC) [Ratio] 13.5 % Normal 11.6-14.6 [facility] Comment on above: Order Comment: Urine , Random Performed By: #### L 400.0001, L501.0900 #### [facility] [address] [place], [address] Hematocrit (Bld) [Volume fraction] 39.2 % Low 40-54 [facility] Comment on above: Order Comment: Urine , Random Performed By: #### L 400.0001, L501.0900 #### [facility] [address] [place], [address] Hemoglobin (Bld) [Mass/Vol] 12.3 g/dL Low 13.0-16.5 [facility] Comment on above: Order Comment: Urine , Random Performed By: #### L 400.0001, L501.0900 #### [facility] [address] [place], [address] IG% 0.500 Normal 0.0-0.9 [facility] Comment on above: Order Comment: Urine , Random Result Comment: IG% - Immature Granulocytes (promyelocytes, myelocytes and metamyelocytes) > 1% indicates that a LEFT SHIFT is Present. Performed By: #### L 400.0001, L501.0900 #### [facility] [address] [place], [address] Lymphocytes/100 WBC (Bld) 15.7 % Low 19-41 [facility] Comment on above: Order Comment: Urine , Random Performed By: #### L 400.0001, L501.0900 #### [facility] [address] [place], [address] MCH (RBC) [Entitic mass] 30.7 pg Normal 27.0-32.0 [facility] Comment on above: Order Comment: Urine , Random Performed By: #### L 400.0001, L501.0900 #### [facility] [address] [place], [address] MCHC (RBC) [Mass/Vol] 31.4 g/dL Low 32-36 [facility] Comment on above: Order Comment: Urine , Random Performed By: #### L 400.0001, L501.0900 #### [facility] [address] [place], [address] MCV (RBC) [Entitic vol] 97.8 fL High 80-94 [facility] Comment on above: Order Comment: Urine , Random Performed By: #### L 400.0001, L501.0900 #### [facility] [address] [place], [address] Monocytes/100 WBC (Bld) 9.8 % Normal 0-10 [facility] Comment on above: Order Comment: Urine , Random Performed By: #### L 400.0001, L501.0900 #### [facility] [address] [place], [address] Neutrophils/100 WBC (Bld) 68.3 % Normal 47-70 [facility] Comment on above: Order Comment: Urine , Random Performed By: #### L 400.0001, L501.0900 #### [facility] [address] [place], [address] Nucleated RBC (Bld) [#/Vol] 0 10*3/uL Normal 0-5 [facility] Comment on above: Order Comment: Urine , Random Performed By: #### L 400.0001, L501.0900 #### [facility] [address] [place], [address] Platelet mean volume (Bld) [Entitic vol] 8.8 fL Normal 6.2-12.0 [facility] Comment on above: Order Comment: Urine , Random Performed By: #### L 400.0001, L501.0900 #### [facility] [address] [place], [address] Platelets (Bld) [#/Vol] 186 10*3/uL Normal 150-450 [facility] Comment on above: Order Comment: Urine , Random Performed By: #### L 400.0001, L501.0900 #### [facility] [address] [place], [address] RBC (Bld) [#/Vol] 4.01 10*6/uL Low 4.6-6.2 [facility] Comment on above: Order Comment: Urine , Random Performed By: #### L 400.0001, L501.0900 #### [facility] [address] [place], [address] RDW SD 48.5 fl High 35.1-43.9 [facility] Comment on above: Order Comment: Urine , Random Performed By: #### L 400.0001, L501.0900 #### [facility] [address] [place], [address] WBC (Bld) [#/Vol] 6.3 10*3/uL Normal 4.4-11.0 [facility] Comment on above: Order Comment: Urine , Random Performed By: #### L 400.0001, L501.0900 #### [facility] [address] [place], [address] Calculated very low density lipoprotein (VLDL) cholesterol measurementOrdered By: Piedad Han on 07-30-2024 Calculated very low density lipoprotein (VLDL) cholesterol measurement 35 mg/dL 5-40 [facility] Carbon dioxide, total [Moles /volume] in Central venous bloodOrdered By: Piedad Han on 07-30-2024 CO2 [Moles/Vol] 19.9 mmol/L Low 21.0-32.0 [facility] Chloride assayOrdered By: May Han on 07-30-2024 Chloride [Moles/Vol] 101 mmol/L 98-108 [facility] Comprehensive Metabolic Prof ilon 07-30-2024 Albumin [Mass/Vol] 3.6 g/dL Normal 3.4-4.8 [facility] Comment on above: Order Comment: Urine , Random Performed By: #### L 400.0001, L501.0900 #### [facility] [address] [place], [address] Albumin/Globulin [Mass ratio] 1.4 {ratio} Normal 0.9-2.4 [facility] Comment on above: Order Comment: Urine , Random Performed By: #### L 400.0001, L501.0900 #### [facility] [address] [place], [address] ALK PHOS 126 U/L Normal 40-129 [facility] Comment on above: Order Comment: Urine , Random Performed By: #### L 400.0001, L501.0900 #### [facility] [address] [place], [address] ALT [Catalytic activity/Vol] 46 U/L Normal <=46 [facility] Comment on above: Order Comment: Urine , Random Performed By: #### L 400.0001, L501.0900 #### [facility] [address] [place], [address] AST [Catalytic activity/Vol] 34 U/L Normal <=37 [facility] Comment on above: Order Comment: Urine , Random Performed By: #### L 400.0001, L501.0900 #### [facility] [address] [place], [address] Bilirubin [Mass/Vol] 0.25 mg/dL Normal 0.00-1.30 [facility] Comment on above: Order Comment: Urine , Random Performed By: #### L 400.0001, L501.0900 #### [facility] [address] [place], [address] BUN/CRE 19.2 RATIO Normal 10-20 [facility] Comment on above: Order Comment: Urine , Random Performed By: #### L 400.0001, L501.0900 #### [facility] [address] [place], [address] Calcium [Mass/Vol] 8.6 mg/dL Normal 7.6-11.0 [facility] Comment on above: Order Comment: Urine , Random Performed By: #### L 400.0001, L501.0900 #### [facility] [address] [place], [address] Chloride [Moles/Vol] 101 mmol/L Normal 98-108 [facility] Comment on above: Order Comment: Urine , Random Performed By: #### L 400.0001, L501.0900 #### [facility] [address] [place], [address] CO2 [Moles/Vol] 19.9 mmol/L Low 21.0-32.0 [facility] Comment on above: Order Comment: Urine , Random Performed By: #### L 400.0001, L501.0900 #### [facility] [address] [place], [address] Creatinine [Mass/Vol] 2.76 mg/dL High 0.70-1.20 [facility] Comment on above: Order Comment: Urine , Random Performed By: #### L 400.0001, L501.0900 #### [facility] [address] [place], [address] GAP 12 Normal 5-15 [facility] Comment on above: Order Comment: Urine , Random Performed By: #### L 400.0001, L501.0900 #### [facility] [address] [place], [address] GFR/1.73 sq M.predicted among non-blacks MDRD (S/P/Bld) [Vol rate/Area] 24 mL/min/{1.73_m2} Low >60 [facility] Comment on above: Order Comment: Urine , Random Result Comment: mL/m in/1.73m2 CKD-EPI Creatinine Equation (2020) Performed By: #### L 400.0001, L501.0900 #### [facility] [address] [place], [address] Globulin (S) [Mass/Vol] 2.5 g/dL Normal 2.2-4.2 [facility] Comment on above: Order Comment: Urine , Random Performed By: #### L 400.0001, L501.0900 #### [facility] [address] [place], [address] Glucose [Mass/Vol] 167 mg/dL High 70-99 [facility] Comment on above: Order Comment: Urine , Random Performed By: #### L 400.0001, L501.0900 #### [facility] [address] [place], [address] Potassium [Moles/Vol] 4.6 mmol/L Normal 3.3-5.1 [facility] Comment on above: Order Comment: Urine , Random Performed By: #### L 400.0001, L501.0900 #### [facility] [address] [place], [address] Sodium [Moles/Vol] 132 mmol/L Low 133-145 [facility] Comment on above: Order Comment: Urine , Random Performed By: #### L 400.0001, L501.0900 #### [facility] [address] [place], [address] T PROT 6.1 g/dL Normal 5.9-8.4 [facility] Comment on above: Order Comment: Urine , Random Performed By: #### L 400.0001, L501.0900 #### [facility] [address] [place], [address] Urea nitrogen [Mass/Vol] 53 mg/dL High 4-19 [facility] Comment on above: Order Comment: Urine , Random Performed By: #### L 400.0001, L501.0900 #### [facility] [address] [place], [place], [address] Eosinophil percentageOrdered By: Piedad Han on 07-30-2024 Eosinophils/100 WBC (Bld) 5.2 % High 0-5 [facility] Erythrocyte distribution wid th ratioOrdered By: Piedad Han on 07-30-2024 Erythrocyte distribution width (RBC) [Ratio] 13.5 % 11.6-14.6 [facility] Erythrocyte distribution wid th standard deviationOrdered By: Piedad Han on 07-30-2024 Erythrocyte distribution width (RBC) [Ratio] 48.5 fl High 35.1-43.9 [facility] Glomerular filtration rate ( GFR) estimation/1.73 sq m using serum, plasma, or whole bOrdered By: Piedad Han on 07-30-2024 GFR/1.73 sq M.predicted among non-blacks MDRD (S/P/Bld) [Vol rate/Area] 24 mL/min/{1.73_m2} Low >60 [facility] Comment on above: mL/min/1.73m2 CKD-EP I Creatinine Equation (2020) Hematocrit Auto (Bld) [Volum e fraction]Ordered By: Piedad Han on 07-30-2024 Hematocrit (Bld) [Volume fraction] 39.2 % Low 40-54 [facility] Hemoglobin A1con 07-30-2024 HbA1c (Bld) [Mass fraction] 6.8 % High <=5.6 [facility] Comment on above: Order Comment: Urine , Random Result Comment: Norm al < 5.7 % Prediabetic 5.7 - 6.4 % Diabetic >or= 6.5 % Please note range changes. Performed By: #### L 400.0001, L501.0900 #### [facility] [address] [place], [place], [id number] Hemoglobin A1c percentageOrd ered By: Piedad Han on 07-30-2024 HbA1c (Bld) [Mass fraction] 6.8 % High <5.7 [facility] Comment on above: Normal < 5.7 % Predi abetic 5.7 - 6.4 % Diabetic >or= 6.5 % Please note range changes. Hemoglobin measurementOrdere d By: Piedad Han on 07-30-2024 Hemoglobin (Bld) [Mass/Vol] 12.3 g/dL Low 13.0-16.5 [facility] Immature granulocytes/100 WB C Auto (Bld)Ordered By: Piedad Han on 07-30-2024 Immature granulocytes/100 WBC (Bld) 0.500 % 0.0-0.9 [facility] Comment on above: IG% - Immature Granu locytes (promyelocytes, myelocytes and metamyelocytes) > 1% indicates that a LEFT SHIFT is Present. LDL calc ser/plasOrdered By: Piedad Han on 07-30-2024 Cholesterol in LDL [Mass/Vol] 39 mg/dL [facility] Comment on above: Myxsjnegmb=984-934 m g/dL & Higher Krmb=715 mg/dL or greater Laboratory - Chemistry and C hemistry - challengeOrdered By: Piedad Han on 07-30-2024 AST [Catalytic activity/Vol] 34 U/L <38 [facility] Lipid Profileon 07-30-2024 CHOL:HDL 2.76 Normal [facility] Comment on above: Order Comment: Urine , Random Performed By: #### L 400.0001, L501.0900 #### [facility] [address] [place], [place], [id number]) Cholesterol [Mass/Vol] 115 mg/dL Normal <=200 [facility] Comment on above: Order Comment: Urine , Random Result Comment: Chol esterol level, Desirable <200 mg/dL Borderline high cholesterol 200-239 mg/dL High cholesterol >=240 mg/dL Recommendations of the NCEP Adult Treatment Panel for the following risk-cutoff thresholds for the [place] population. Performed By: #### L 400.0001, L501.0900 #### [facility] [address] [place], [address] Cholesterol in HDL [Mass/Vol] 42 mg/dL Normal [facility] Comment on above: Order Comment: Urine , Random Result Comment: [place]un[place] onal Cholesterol Education Program (NCEP) guidelines: <40 mg/dL: Low HDL-cholesterol (major risk factor for CHD) >= 60 mg/dL: High HDL-cholesterol (negative risk factor for CHD) HDL-cholesterol is affected by a number of factors, e.g. smoking, exercise, hormones, sex and age. Performed By: #### L 400.0001, L501.0900 #### [facility] [address] [place], [address] Cholesterol in LDL [Mass/Vol] 39 mg/dL Normal [facility] Comment on above: Order Comment: Urine , Random Result Comment: Bord wfguyo=932-105 mg/dL Higher Emlz=225 mg/dL or greater Performed By: #### L 400.0001, L501.0900 #### [facility] [address] [place], [address] Cholesterol in VLDL [Mass/Vol] 35 mg/dL Normal 5-40 [facility] Comment on above: Order Comment: Urine , Random Performed By: #### L 400.0001, L501.0900 #### [facility] [address] [place], [address] Triglyceride [Mass/Vol] 174 mg/dL Normal [facility] Comment on above: Order Comment: Urine , Random Result Comment: The drugs N-Acetylcysteine and Metamizole may falsely depress this assay. Normal range: <150 mg/dL Borderline High: 150-199 mg/dL High: 200-499 mg/dL Very High: >500 mg/dL Performed By: #### L 400.0001, L501.0900 #### [facility] [address] [place], [address] MCV (mean corpuscular volume ) determinationOrdered By: Piedad Han on 07-30-2024 MCV (RBC) [Entitic vol] 97.8 fL High 80-94 [facility] Magnesiumon 07-30-2024 Magnesium [Mass/Vol] 2.3 mg/dL High 1.5-2.2 [facility] Comment on above: Order Comment: Urine , Random Performed By: #### L 400.0001, L501.0900 #### [facility] [address] [place] [place], [address] Magnesium measurement (mass/ volume)Ordered By: Piedad Han on 07-30-2024 Magnesium (Unsp spec) [Mass/Vol] 2.3 mg/dL High 1.5-2.2 [facility] Mean corpuscular hemoglobin (MCH) determinationOrdered By: Piedad Han on 07-30-2024 MCH (RBC) [Entitic mass] 30.7 pg 27.0-32.0 [facility] Mean corpuscular hemoglobin concentration (MCHC) determinationOrdered By: Piedad Han on 07-30-2024 MCHC (RBC) [Mass/Vol] 31.4 g/dL Low 32-36 [facility] Mean platelet volume determi nationOrdered By: Piedad Han on 07-30-2024 Platelet mean volume (Bld) [Entitic vol] 8.8 fL 6.2-12.0 [facility] Microalb:Creat Ratio,Random URon 07-30-2024 MALB:CREAT 2470.9 mg/g CRE Normal [facility] Comment on above: Order Comment: Order Date: 12/05/23 Order Info: 4548-4 - A1C Performed By: #### L 501.9520, L500.4050, L500.4100, L501.5200, L100.0100, L501.9985 #### [facility] [address] [place], [address] MICROALBUMIN,UR 808.0 mg/L Normal NO RANGE EST. [facility] Comment on above: Order Comment: Order Date: 12/05/23 Order Info: 4548-4 - A1C Performed By: #### L 501.9520, L500.4050, L500.4100, L501.5200, L100.0100, L501.9985 #### [facility] [address] [place], [place], [id number] Monocyte percentageOrdered B y: Piedad Han on 07-30-2024 Monocytes/100 WBC (Bld) 9.8 % 0-10 [facility] Neutrophil percentageOrdered By: Piedad Han on 07-30-2024 Neutrophils/100 WBC (Bld) 68.3 % 47-70 [facility] Nucleated red blood cell per centageOrdered By: Piedad Han on 07-30-2024 Nucleated RBC/100 WBC (Bld) [Ratio] 0 % 0-5 [facility] Platelet countOrdered By: May Han on 07-30-2024 Platelets (Bld) [#/Vol] 186 10*3/uL 150-450 [facility] Potassium measurement (mass/ volume)Ordered By: Piedad Han on 07-30-2024 Potassium (Unsp spec) [Mass/Vol] 4.6 mmol/L 3.3-5.1 [facility] Protein+Creatinine Ratio,Uri neon 07-30-2024 PROT:CRE RATIO 3547 mg/g CRE High 0-200 [facility] Comment on above: Order Comment: Order Date: 12/05/23 Order Info: 0184-1 - CBCD Performed By: #### L 501.9520, L500.4050, L500.4100, L501.5200, L100.0100, L501.9985 #### [facility] [address] [place], [address] Protein (U) [Mass/Vol] 116.0 mg/dL High 0.0-12.0 [facility] Comment on above: Order Comment: Order Date: 12/05/23 Order Info: 0184-1 - CBCD Performed By: #### L 501.9520, L500.4050, L500.4100, L501.5200, L100.0100, L501.9985 #### [facility] [address] [place], [address] RBC Auto (Bld) [#/Vol]Ordere d By: Piedad Han on 07-30-2024 RBC (Bld) [#/Vol] 4.01 10*6/uL Low 4.6-6.2 [facility] Random urine creatinine priyanka urement (mass/volume)Ordered By: Piedad Han on 07-30-2024 Creatinine Unsp time (U) [Mass/Vol] 32.70 mg/dL Low 39.00-259. 00 [facility] Screening total cholesterol/ high density lipoprotein (HDL) cholesterol ratioOrdered By: Piedad Han on 07-30-2024 Cholesterol.total/Choles terol in HDL [Mass ratio] 2.76 {ratio} [facility] Serum creatinine measurement (mass/volume)Ordered By: Piedad Han on 07-30-2024 Creatinine [Mass/Vol] 2.76 mg/dL High 0.70-1.20 [facility] Serum globulin measurementOr dered By: Piedad Han on 07-30-2024 Globulin (S) [Mass/Vol] 2.5 g/dL 2.2-4.2 [facility] Serum glucose measurement (m ass/volume)Ordered By: Piedad Han on 07-30-2024 Glucose [Mass/Vol] 167 mg/dL High 70-99 [facility] Serum or plasma alanine menezes otransferase (ALT) measurementOrdered By: Piedad Han on 07-30-2024 ALT [Catalytic activity/Vol] 46 U/L <47 [facility] Serum or plasma albumin priyanka urement (mass/volume)Ordered By: Piedad Han on 07-30-2024 Albumin [Mass/Vol] 3.6 g/dL 3.4-4.8 [facility] Serum or plasma albumin/glob ulin mass ratioOrdered By: Piedad Han on 07-30-2024 Albumin/Globulin [Mass ratio] 1.4 {ratio} 0.9-2.4 [facility] Serum or plasma alkaline enio sphatase measurementOrdered By: Piedad Han on 07-30-2024 ALP [Catalytic activity/Vol] 126 U/L 40-129 [facility] Serum or plasma calcium priyanka urement (mass/volume)Ordered By: Piedad Han on 07-30-2024 Calcium [Mass/Vol] 8.6 mg/dL 7.6-11.0 [facility] Serum or plasma cholesterol in HDL measurement (mass/volume)Ordered By: Piedad Han on 07-30-2024 Cholesterol in HDL [Mass/Vol] 42 mg/dL >40 [facility] Comment on above: National Cholesterol Education Program (NCEP) guidelines:<40 mg/dL: Low HDL-cholesterol (major risk factor for CHD)>= 60 mg/dL: High HDL-cholesterol (negative risk factor for CHD)HDL-cholesterol is affected by a number of factors, e.g. smoking, exercise, hormones, sex and age. Serum or plasma cholesterol measurement (mass/volume)Ordered By: Piedad Han on 07-30-2024 Cholesterol [Mass/Vol] 115 mg/dL <201 [facility] Comment on above: Cholesterol level, D esirable <200 mg/dLBorderline high cholesterol 200-239 mg/dLHigh cholesterol >=240 mg/dLRecommendations of the NCEP Adult Treatment Panel for the following risk-cutoff thresholds for the [place] population. Serum or plasma urea nitroge n measurement (mass/volume)Ordered By: Piedad Han on 07-30-2024 Urea nitrogen [Mass/Vol] 53 mg/dL High 4-19 [facility] Sodium levelOrdered By: Piedad Han on 07-30-2024 Sodium [Moles/Vol] 132 mmol/L Low 133-145 [facility] T4 Free Directon 07-30-2024 T4 FREE DIRECT 1.30 ng/dL Normal 0.76-1.46 [facility] Comment on above: Order Comment: Urine , Random Performed By: #### L 400.0001, L501.0900 #### [facility] [address] [place] [address]. [place], [address] T4 freeOrdered By: Piedad eubankser on 07-30-2024 Free T4 [Mass/Vol] 1.30 ng/dL 0.76-1.46 [facility] TSH DL <= 0.005 mIU/L QnOrde red By: Piedad Han on 07-30-2024 TSH Qn 1.530 uIU/mL 0.300-4.20 0 [facility] Thyroid Stim Hormone (TSH)on 07-30-2024 TSH 1.530 uIU/mL Normal 0.300-4.20 0 [facility] Comment on above: Order Comment: Urine , Random Performed By: #### L 400.0001, L501.0900 #### [facility] [address] [place], [address] Total proteinOrdered By: Zhang Han on 07-30-2024 Protein [Mass/Vol] 6.1 g/dL 5.9-8.4 [facility] Triglycerides measurementOrd ered By: Piedad Han on 07-30-2024 Triglyceride [Mass/Vol] 174 mg/dL <199 [facility] Comment on above: The drugs N-Acetylcy steine and Metamizole may falsely depress this assay. Normal range: <150 mg/dLBorderline High: 150-199 mg/dLHigh: 200-499 mg/dLVery High: >500 mg/dL Urine albumin measurement [facility] detection limit of 20 mg/L or less (mass/volume)Ordered By: Piedad Han on 07-30-2024 Albumin DL <= 20 mg/L (U) [Mass/Vol] 808.0 mg/L NO RANGE EST. [facility] Urine protein measurement (m ass/volume)Ordered By: Piedad Han on 07-30-2024 Protein (U) [Mass/Vol] 116.0 mg/dL High 0.0-12.0 [facility] Urine protein/creatinine mas s ratioOrdered By: Piedad Han on 07-30-2024 Protein/Creatinine (U) [Mass ratio] 3547 mg/g CRE High 0-200 [facility] Vitamin D,25 Hydroxyon 07-30 Vitamin D 25-OH 29.0 ng/mL Low 30-100 [facility] Comment on above: Order Comment: Order Date: 12/05/23 Order Info: 0184-1 - CBCD Result Comment: Marlee min D Status Deficiency: <20 ng/mL (50nmol/L) Insufficiency: 20-30 ng/mL (50-75 nmol/L) Sufficiency: 30-100 ng/mL (75-250 nmol/L) Toxicity: >100 ng/mL (>250 nmol/L) Performed By: #### L 501.9520, L500.4050, L500.4100, L501.5200, L100.0100, L501.9985 #### [facility] [address] [place], [address] White blood cell (WBC) count Ordered By: Piedad Han on 07-30-2024 WBC (Bld) [#/Vol] 6.3 10*3/uL 4.4-11.0 [facility] Tele[facility] (ENDIMT) -- GAMALIEL GRIFFIN ([id number]) 1955 Date Time Provider Department 07/18/24 MONICA [...] Tan MA 07/18/2024 11:35 AM Signed Phone aircraft sales representative for [facility] for clarification. Phone messages reports [...] - Blood-Glucose Meter,Continuous (FREESTYLE YAZMIN 3 READER) [facility] DISPENSE ONE READER KIT. USE FOR CONTINUOUS [...] mouth two times a day. - Insulin [place], Disposable, (BD ULTRA-FINE KENN PEN NEEDLE) 32 [...] [Z79.4] 01/30/2023 Chronic systolic congestive heart failure ([facility])*01/31/2023 Summary [Z91.89] 02/01/2023 Hyperparathyroidism ([facility]) [E21.3] 08/04/2023 Encounter Status:Closed by SHASTA GARSIA on 07/19/24 [facility] CNPN Telephone (AGCARDPOB ) -- GAMALIEL GRIFFIN ([id number]) 1955 M Date Time Provider Department 07/16/24 YESSENIA URIOSTEGUI AGCFLAKO During your visit today, we recorded the following information about you: Hermes Perez 07/16/2024 9:47 AM Signed Received referral from [facility]. Pt scheduled 09/04 with . [...] - Blood-Glucose Meter,Continuous (FREESTYLE YAZMIN 3 READER) [facility] DISPENSE ONE READER KIT. USE FOR CONTINUOUS [...] mouth two times a day. - Insulin [place], Disposable, (BD ULTRA-FINE KENN PEN NEEDLE) 32 [...] Encounter Status:Closed by HERMES PEREZ on 07/16/24 [facility] Cardiology Visit Reporton Cardiology Visit Report [facility] [place] [id number] [place] [address] OFFICE VISIT Date of Service: 07/12/24 MR#: [id number] Acct: [id number] Name: GAMALIEL GRIFFIN Rep #: [id number] : 1955 Provider: SUSHMA Alejandro Age/Sex: 68/M Location: [facility] Status: Signed HPI HPI History of Present [...] underwent coronary bypass graft surgery receiving a SULLVIAN to the LAD a vein graft to [...] reason. It was determined that documentation from [facility] cardiology dating 01/03/2024 Patient is somewhat [...] but has not been read by the philosophy instructor yet. Upon presentation today, patient reports feeling [...] NIBP Intake Visit Reasons: 2 WK FU Forensic Sergeant Required: No Accompanied by: Self Is patient [...] PO QD (more content not included)... Normal [facility] 12 Lead EKG performed by [facility] on 07-01-2024 12 Lead EKG performed by [facility] [address] [place] [address] 12 Lead EKG performed by [facility] 07/01/24 1034 MR#: [id number] Acct: [id number] Name: GAMALIEL GRIFFIN Rep #: [id number] : 1955 68 From: Roman ORDAZ Attending Dr: SUSHMA Alejandro Status: DEP AM B Ordering Dr: Roman Pham Date: 07/01/24 Location: [facility] Sex: M C Admitted: BMS/12 Lead EKG performed by [facility] ECG Report Interpretation Sinus Rhythm with Paroxysmal Atrial Tachycardia -Poor R-wave progression -may be secondary to pulmonary disease consider old anterior infarct. - Nonspecific T-abnormality. Low voltage -possible pulmonary disease. ABNORMAL Electronically signed on 07/03/2024 at 12:[address] Gilmer Vásquez Software Version [id number] 07/03/24 1212 Date Roman ORDAZ CC: Dr. Piedad Han MD Date Dictated: 07/01/24 103 Date Transcribed: 07/01/241033 Resident Care Aid: CHRISTI Signed [facility] 07-01-2024 [facility] Telephone (ENWSTR) -- GAMALIEL GRIFFIN ([id number]) 1955 M Date Time Provider Department 07/01/24 MONICA HOYT During your visit today, we recorded the following information about you: Shasta Garsia, HANG 07/01/2024 10:24 AM Signed Addended OV notes indicating Pt compliance with CGM use faxed to [facility] for existing order, along with most recent [...] - Blood-Glucose Meter,Continuous (FREESTYLE YAZMIN 3 READER) [facility] DISPENSE ONE READER KIT. USE FOR CONTINUOUS [...] mouth two times a day. - Insulin [place], Disposable, (BD ULTRA-FINE KENN PEN NEEDLE) 32 [...] Status:Closed by SHASTA GARSIA on 07/01/24 Normal [facility] Office Visit Reporton 2024 Office Visit Report [facility] [address] [place] [address] OFFICE VISIT Date of Service: 07/01/24 MR#: [id number] Acct: [id number] Patient: GAMALIEL GRIFFIN Rep #: [id number] : 1955 Provider: SUSHMA Alejandro Age/Sex: 68/M Location: [facility] Status: Signed Agree with nurse's documentation. Intake [...] be moved to the following week per [place]. Patient verbalized understanding and will call to schedule holter monitor. Assessment and Plan Assessment and Plan Orders: Orders 12 Lead EKG performed by [facility] 07/01/24 I25.10 - Atherosclerotic heart disease of [place] coronary artery without angina pectoris Clinical Quality Measures Falls Risk Screening/Assistive Devices Have you fallen in the past year?: No 07/09/24 0851 Date Roman ORDAZ Cosigner Signature: Date (if applicable) CC: Normal [facility] Cardiology Visit Reporton Cardiology Visit Report [facility] [address] [place] [address] OFFICE VISIT Date of Service: 06/21/24 MR#: [id number] Acct: [id number] Name: GAMALIEL GRIFFIN Rep #: [id number] : 1955 Provider: SUSHMA Alejandro Age/Sex: [...] reason. It was determined that documentation from [facility] cardiology dating 01/03/2024 Patient is somewhat [...] room air Intake Visit Reasons: Medication Reconciliation Forensic Sergeant Required: No Accompanied by: Self Is patient [...] TID 06/21 (more content not included)... Normal [facility] Thyroglobulin w/Anti-TG ABon 06-20-2024 Anti-TG AB 1.3 IU/mL High 0.0-0.9 [facility] Comment on above: Result Comment: Thyr oglobulin Antibody measured by Salvador Symone Methodology It should be noted that the presence of thyroglobulin antibodies may not be pathogenic nor diagnostic, especially at very low levels. The assay bicycle fitter has found that four percent of individuals without evidence of thyroid disease or autoimmunity will have positive TgAb levels up to 4 IU/mL. Performed By: #### L 501.9520, L500.4050, L500.4100, L501.5200, L100.0100, L501.9985 #### [facility] [address] [place], [address] TG-JULIAN 2.6 ng/mL Normal . [facility] Comment on above: Result Comment: This test was developed and its performance characteristics determined by [employer]. It has not been cleared or approved [...] 501.9520, L500.4050, L500.4100, L501.5200, L100.0100, L501.9985 #### [facility] [address] [facility] [id number] Thyroid Peroxidase ABon 05-0 THYR PEROX AB 12 IU/mL Normal 0-34 [facility] Comment on above: Result Comment: Perf ormed at: CB - [facility] [address] [id number] Dietary Aide Teacher: Conrad Whitten PhD, Phone: [phone] Performed at: [facility] [address] [place] [id number] Dietary Aide Teacher: Papo Carpenter MD, Phone: [phone] Performed By: #### L 501.9520, L500.4050, L500.4100, L501.5200, L100.0100, L501.9985 #### [facility] [address] [place], [place], [address] Cardiology Visit Reporton Cardiology Visit Report [facility] [address] [place] [address] OFFICE VISIT Date of Service: 06/07/24 MR#: [id number] Acct: [id number] Name: GAMALIEL GRIFFIN Rep #: [id number] : 1955 Provider: Dr. Gilmer galicia MD Age/Sex: 68/M Location: [facility] Status: Signed HPI HPI History of Present Illness Details: Patient is a 68-year-old white male that comes in today to reestablish care in the [place] [facility]. Patient has a known history of coronary [...] air Intake Visit Reasons: RE-EST CARE (Self) Forensic Sergeant Required: No Accompanied by: Self Is patient [...] %: 25 (more content not included)... Normal [facility] Serum or plasma thyroperoxid ase antibody assay (units/volume)Ordered By: Piedad Han on 06-07-2024 TPO Ab Qn 12 [IU]/mL 0-34 [facility] Comment on above: Performed at: [facility] [place], [place] [id number] Director: Conrad Whitten PhD, Phone: [phone] at: ES - [facility] [place], [place] [id number] Director: Papo Carpenter MD, Phone: [phone] T4 Free Directon 06-07-2024 T4 FREE DIRECT 0.90 ng/dL Normal 0.76-1.46 [facility] Comment on above: Order Comment: Order Date: 12/05/23 Order Info: [id number] - A1C Performed By: #### L 501.9520, L500.4050, L500.4100, L501.5200, L100.0100, L501.9985 #### [facility] [place], [address] T4 freeOrdered By: Piedad vale on 06-07-2024 Free T4 [Mass/Vol] 0.90 ng/dL 0.76-1.46 [facility] Thyroglobulin measurement by radioimmunoassay (JULIAN)Ordered By: Piedad Han on 06-07-2024 Thyroglobulin Ab JULIAN Qn (S) 2.6 ng/mL . [facility] Comment on above: This test was develo ped and its performance characteristicsdetermined by [employer]. It has not been cleared or approvedby [...] T4 FREE DIRECT 1.00 ng/dL Normal 0.76-1.46 [facility] Comment on above: Order Comment: CLEAN CATCH Performed By: #### L 400.0001 #### [facility] [address] [place], [place], [id number] Absolute lymphocyte countOrd ered By: Piedad Han on 06-04-2024 Lymphocytes Auto (Unsp spec) [#/Vol] 1.35 10*3/uL 0.83-4.51 [facility] Absolute neutrophil countOrd ered By: Piedad Han on 06-04-2024 Neutrophils (Bld) [#/Vol] 6.2 10*3/uL 2.0-7.7 [facility] Anion gap in Serum or Plasma Ordered By: Piedad Han on 06-04-2024 Anion gap [Moles/Vol] 11 mmol/L 5-15 [facility] Automated lymphocyte count a s percentage of total leukocytesOrdered By: Piedad Han on 06-04-2024 Lymphocytes/100 WBC Auto (Unsp spec) 15.7 % Low 19-41 [facility] BUN/creatinine ratioOrdered By: Piedad Han on 06-04-2024 Urea nitrogen/Creatinine [Mass ratio] 20.5 mg/mg High 10-20 [facility] Basophil percentageOrdered B y: Piedad Han on 06-04-2024 Basophils/100 WBC (Bld) 0.5 % 0-1 [facility] Bilirubin Test strip Ql (U)O rdered By: Piedad Han on 06-04-2024 Bilirubin Ql (U) Negative Negative [facility] Bilirubin, totalOrdered By: Piedad Han on 06-04-2024 Bilirubin [Mass/Vol] 0.19 mg/dL 0.00-1.30 [facility] CBC W/Diff, Automatedon 05-15 Absolute Lymph 1.35 X10 3/uL Normal 0.83-4.51 [facility] Comment on above: Order Comment: Order Date: 12/05/23 Order Info: 0184-1 - CBCD Performed By: #### L 501.9520, L500.4050, L500.4100, L501.5200, L100.0100, L501.9985 #### [facility] [address] [place], [address] Absolute Neut 6.2 X10 3/uL Normal 2.0-7.7 [facility] Comment on above: Order Comment: Order Date: 12/05/23 Order Info: 018- - CBCD Performed By: #### L 501.9520, L500.4050, L500.4100, L501.5200, L100.0100, L501.9985 #### [facility] [address] [place], [address] Basophils/100 WBC (Bld) 0.5 % Normal 0-1 [facility] Comment on above: Order Comment: Order Date: 12/05/23 Order Info: 018- - CBCD Performed By: #### L 501.9520, L500.4050, L500.4100, L501.5200, L100.0100, L501.9985 #### [facility] [address] [place], [address] Eosinophils/100 WBC (Bld) 4.8 % Normal 0-5 [facility] Comment on above: Order Comment: Order Date: 12/05/23 Order Info: 018- - CBCD Performed By: #### L 501.9520, L500.4050, L500.4100, L501.5200, L100.0100, L501.9985 #### [facility] [address] [place], [address] Erythrocyte distribution width (RBC) [Ratio] 13.2 % Normal 11.6-14.6 [facility] Comment on above: Order Comment: Order Date: 12/05/23 Order Info: 018- - CBCD Performed By: #### L 501.9520, L500.4050, L500.4100, L501.5200, L100.0100, L501.9985 #### [facility] [address] [place], [address] Hematocrit (Bld) [Volume fraction] 40.7 % Normal 40-54 [facility] Comment on above: Order Comment: Order Date: 12/05/23 Order Info: 0184-1 - CBCD Performed By: #### L 501.9520, L500.4050, L500.4100, L501.5200, L100.0100, L501.9985 #### [facility] [address] [place], [address] Hemoglobin (Bld) [Mass/Vol] 13.2 g/dL Normal 13.0-16.5 [facility] Comment on above: Order Comment: Order Date: 12/05/23 Order Info: 0184- - CBCD Performed By: #### L 501.9520, L500.4050, L500.4100, L501.5200, L100.0100, L501.9985 #### [facility] [address] [place], [address] IG% 0.600 Normal 0.0-0.9 [facility] Comment on above: Order Comment: Order Date: 12/05/23 Order Info: 0184-1 - CBCD Result Comment: IG% - Immature Granulocytes (promyelocytes, myelocytes and metamyelocytes) > 1% indicates that a LEFT SHIFT is Present. Performed By: #### L 501.9520, L500.4050, L500.4100, L501.5200, L100.0100, L501.9985 #### [facility] [address] [place], [address] Lymphocytes/100 WBC (Bld) 15.7 % Low 19-41 [facility] Comment on above: Order Comment: Order Date: 12/05/23 Order Info: 0184-1 - CBCD Performed By: #### L 501.9520, L500.4050, L500.4100, L501.5200, L100.0100, L501.9985 #### [facility] [address] [place], [address] MCH (RBC) [Entitic mass] 30.8 pg Normal 27.0-32.0 [facility] Comment on above: Order Comment: Order Date: 12/05/23 Order Info: 0184-1 - CBCD Performed By: #### L 501.9520, L500.4050, L500.4100, L501.5200, L100.0100, L501.9985 #### [facility] [address] [place], [address] MCHC (RBC) [Mass/Vol] 32.4 g/dL Normal 32-36 [facility] Comment on above: Order Comment: Order Date: 12/05/23 Order Info: 0184-1 - CBCD Performed By: #### L 501.9520, L500.4050, L500.4100, L501.5200, L100.0100, L501.9985 #### [facility] [address] [place], [address] MCV (RBC) [Entitic vol] 94.9 fL High 80-94 [facility] Comment on above: Order Comment: Order Date: 12/05/23 Order Info: 0184-1 - CBCD Performed By: #### L 501.9520, L500.4050, L500.4100, L501.5200, L100.0100, L501.9985 #### [facility] [address] [place], [address] Monocytes/100 WBC (Bld) 6.5 % Normal 0-10 [facility] Comment on above: Order Comment: Order Date: 12/05/23 Order Info: 0184-1 - CBCD Performed By: #### L 501.9520, L500.4050, L500.4100, L501.5200, L100.0100, L501.9985 #### [facility] [address] [place], [address] Neutrophils/100 WBC (Bld) 71.9 % High 47-70 [facility] Comment on above: Order Comment: Order Date: 12/05/23 Order Info: 0184-1 - CBCD Performed By: #### L 501.9520, L500.4050, L500.4100, L501.5200, L100.0100, L501.9985 #### [facility] [address] [place], [address] Nucleated RBC (Bld) [#/Vol] 0 10*3/uL Normal 0-5 [facility] Comment on above: Order Comment: Order Date: 12/05/23 Order Info: 0184-1 - CBCD Performed By: #### L 501.9520, L500.4050, L500.4100, L501.5200, L100.0100, L501.9985 #### [facility] [address] [place], [address] Platelet mean volume (Bld) [Entitic vol] 8.5 fL Normal 6.2-12.0 [facility] Comment on above: Order Comment: Order Date: 12/05/23 Order Info: 0184-1 - CBCD Performed By: #### L 501.9520, L500.4050, L500.4100, L501.5200, L100.0100, L501.9985 #### [facility] [address] [place], [address] Platelets (Bld) [#/Vol] 207 10*3/uL Normal 150-450 [facility] Comment on above: Order Comment: Order Date: 12/05/23 Order Info: 0184-1 - CBCD Performed By: #### L 501.9520, L500.4050, L500.4100, L501.5200, L100.0100, L501.9985 #### [facility] [address] [place], [address] RBC (Bld) [#/Vol] 4.29 10*6/uL Low 4.6-6.2 [facility] Comment on above: Order Comment: Order Date: 12/05/23 Order Info: 0184-1 - CBCD Performed By: #### L 501.9520, L500.4050, L500.4100, L501.5200, L100.0100, L501.9985 #### [facility] [address] [place], [place], [id number] RDW SD 44.7 fl High 35.1-43.9 [facility] Comment on above: Order Comment: Order Date: 12/05/23 Order Info: 0184-1 - CBCD Performed By: #### L 501.9520, L500.4050, L500.4100, L501.5200, L100.0100, L501.9985 #### [facility] [address] [place], [place], [id number] WBC (Bld) [#/Vol] 8.6 10*3/uL Normal 4.4-11.0 [facility] Comment on above: Order Comment: Order Date: 12/05/23 Order Info: 0184-1 - CBCD Performed By: #### L 501.9520, L500.4050, L500.4100, L501.5200, L100.0100, L501.9985 #### [facility] [address] [place], [place], [id number] Calculated very low density lipoprotein (VLDL) cholesterol measurementOrdered By: Piedad Han on 06-04-2024 Calculated very low density lipoprotein (VLDL) cholesterol measurement 33 mg/dL 5-40 [facility] Carbon dioxide, total [Moles /volume] in Central venous bloodOrdered By: Piedad Han on 06-04-2024 CO2 [Moles/Vol] 23.1 mmol/L 21.0-32.0 [facility] Chloride assayOrdered By: May Han on 06-04-2024 Chloride [Moles/Vol] 102 mmol/L 98-108 [facility] Comprehensive Metabolic Prof ilon 06-04-2024 Albumin [Mass/Vol] 3.4 g/dL Normal 3.4-4.8 [facility] Comment on above: Order Comment: Order Date: 12/05/23 Order Info: 785- - CMP Order Info: [id number] - LIPID Order Info: [id number] - MG Order Info: 6-3 - TSH DR. LEZAMA GETS RESULTS FOR UAC CMP LIPID MG TSH A1C DENIS GARRISON GETS RESULTS FOR PHOS CMP CBC PTH PROCRE Performed By: #### L 501.9520, L500.4050, L500.4100, L501.5200, L100.0100, L501.9985 #### [facility] [address] [place], [place], [id number] Albumin/Globulin [Mass ratio] 1.2 {ratio} Normal 0.9-2.4 [facility] Comment on above: Order Comment: Order Date: 12/05/23 Order Info: [id number] - CMP Order Info: - LIPID Order Info: [id number] - MG Order Info: 3 - TSH DR. LEZAMA GETS RESULTS FOR UA CMP LIPID MG TSH A1C DENIS GARRISON GETS RESULTS FOR PHOS CMP CBC PTH PROCRE Performed By: #### L 501.9520, L500.4050, L500.4100, L501.5200, L100.0100, L501.9985 #### [facility] [address] [place], [place], [address] [phone] [phone] PHOS 121 U/L Normal 40-129 [facility] Comment on above: Order Comment: Order Date: 12/05/23 Order Info: 785-02 - CMP Order Info: [id number] - LIPID Order Info: [id number] - MG Order Info: 3015-3 - TSH DR. LEZAMA GETS RESULTS FOR UA CMP LIPID MG TSH A1C DENIS GARRISON GETS RESULTS FOR PHOS CMP CBC PTH PROCRE Performed By: #### L 501.9520, L500.4050, L500.4100, L501.5200, L100.0100, L501.9985 #### [facility] [address] [place], [address] ALT [Catalytic activity/Vol] 56 U/L High <=46 [facility] Comment on above: Order Comment: Order Date: 12/05/23 Order Info: [id number] - CMP Order Info: [id number] - LIPID Order Info: [id number] - MG Order Info: 3016-3 - TSH DR. LEZAMA GETS RESULTS FOR UAC CMP LIPID MG TSH A1C DENIS GARRISON GETS RESULTS FOR PHOS CMP CBC PTH PROCRE Performed By: #### L 501.9520, L500.4050, L500.4100, L501.5200, L100.0100, L501.9985 #### [facility] [address] [place], [address] AST [Catalytic activity/Vol] 39 U/L High <=37 [facility] Comment on above: Order Comment: Order Date: 12/05/23 Order Info: [id number] - CMP Order Info: [id number] - LIPID Order Info: [id number] - MG Order Info: 3015-3 - TSH DR. LEZAMA GETS RESULTS FOR UA CMP LIPID MG TSH A1C DENIS GARRISON GETS RESULTS FOR PHOS CMP CBC PTH PROCRE Performed By: #### L 501.9520, L500.4050, L500.4100, L501.5200, L100.0100, L501.9985 #### [facility] [address] [place], [address] Bilirubin [Mass/Vol] 0.19 mg/dL Normal 0.00-1.30 [facility] Comment on above: Order Comment: Order Date: 12/05/23 Order Info: 785- - CMP Order Info: [id number] - LIPID Order Info: [id number] - MG Order Info: 3016-3 - TSH DR. LEZAMA GETS RESULTS FOR UAC CMP LIPID MG TSH A1C DENIS GARRISON GETS RESULTS FOR PHOS CMP CBC PTH PROCRE Performed By: #### L 501.9520, L500.4050, L500.4100, L501.5200, L100.0100, L501.9985 #### [facility] [address] [place], [address] BUN/CRE 20.5 RATIO High 10-20 [facility] Comment on above: Order Comment: Order Date: 12/05/23 Order Info: 785- - CMP Order Info: [id number] - LIPID Order Info: [id number] - MG Order Info: 3015-3 - TSH DR. LEZAMA GETS RESULTS FOR UA CMP LIPID MG TSH A1C DENIS GARRISON GETS RESULTS FOR PHOS CMP CBC PTH PROCRE Performed By: #### L 501.9520, L500.4050, L500.4100, L501.5200, L100.0100, L501.9985 #### [facility] [address] [place], [address] Calcium [Mass/Vol] 8.8 mg/dL Normal 7.6-11.0 [facility] Comment on above: Order Comment: Order Date: 12/05/23 Order Info: [id number] - CMP Order Info: - LIPID Order Info: [id number] - MG Order Info: 3015-04 - TSH DR. LEZAMA GETS RESULTS FOR UA CMP LIPID MG TSH A1C DENIS GARRISON GETS RESULTS FOR PHOS CMP CBC PTH PROCRE Performed By: #### L 501.9520, L500.4050, L500.4100, L501.5200, L100.0100, L501.9985 #### [facility] [address] [place], [address] Chloride [Moles/Vol] 102 mmol/L Normal 98-108 [facility] Comment on above: Order Comment: Order Date: 12/05/23 Order Info: 785- - CMP Order Info: [id number] - LIPID Order Info: [id number] - MG Order Info: 3015-3 - TSH DR. LEZAMA GETS RESULTS FOR UA CMP LIPID MG TSH A1C DENIS GARRISON GETS RESULTS FOR PHOS CMP CBC PTH PROCRE Performed By: #### L 501.9520, L500.4050, L500.4100, L501.5200, L100.0100, L501.9985 #### [facility] [address] [place], [address] CO2 [Moles/Vol] 23.1 mmol/L Normal 21.0-32.0 [facility] Comment on above: Order Comment: Order Date: 12/05/23 Order Info: 785- - CMP Order Info: [id number] - LIPID Order Info: [id number] - MG Order Info: 3016-3 - TSH DR. LEZAMA GETS RESULTS FOR UAC CMP LIPID MG TSH A1C DENIS GARRISON GETS RESULTS FOR PHOS CMP CBC PTH PROCRE Performed By: #### L 501.9520, L500.4050, L500.4100, L501.5200, L100.0100, L501.9985 #### [facility] [address] [place], [address] Creatinine [Mass/Vol] 2.61 mg/dL High 0.70-1.20 [facility] Comment on above: Order Comment: Order Date: 12/05/23 Order Info: [id number] - CMP Order Info: - LIPID Order Info: [id number] - MG Order Info: 3016-3 - TSH DR. LEZAMA GETS RESULTS FOR UA CMP LIPID MG TSH A1C DENIS GARRISON GETS RESULTS FOR PHOS CMP CBC PTH PROCRE Performed By: #### L 501.9520, L500.4050, L500.4100, L501.5200, L100.0100, L501.9985 #### [facility] [address] [place], [address] GAP 11 Normal 5-15 [facility] Comment on above: Order Comment: Order Date: 12/05/23 Order Info: [id number] - CMP Order Info: [id number] - LIPID Order Info: [id number] - MG Order Info: 3016-3 - TSH DR. LEZAMA GETS RESULTS FOR UA CMP LIPID MG TSH A1C DENIS GARRISON GETS RESULTS FOR PHOS CMP CBC PTH PROCRE Performed By: #### L 501.9520, L500.4050, L500.4100, L501.5200, L100.0100, L501.9985 #### [facility] [address] [place], [address] GFR/1.73 sq M.predicted among non-blacks MDRD (S/P/Bld) [Vol rate/Area] 26 mL/min/{1.73_m2} Low >60 [facility] Comment on above: Order Comment: Order Date: 12/05/23 Order Info: [id number] - CMP Order Info: [id number] - LIPID Order Info: [id number] - MG Order Info: 3015-3 - TSH DR. LEZAMA GETS RESULTS FOR UA CMP LIPID MG TSH A1C DENIS GARRISON GETS RESULTS FOR PHOS CMP CBC PTH PROCRE Result Comment: mL/m in/1.73m2 CKD-EPI Creatinine Equation (2020) Performed By: #### L 501.9520, L500.4050, L500.4100, L501.5200, L100.0100, L501.9985 #### [facility] [address] [place], [address] Globulin (S) [Mass/Vol] 2.8 g/dL Normal 2.2-4.2 [facility] Comment on above: Order Comment: Order Date: 12/05/23 Order Info: 0786- - CMP Order Info: [id number] - LIPID Order Info: [id number] - MG Order Info: 3 - TSH DR. LEZAMA GETS RESULTS FOR [facility] CMP LIPID MG TSH A1C DENIS GARRISON GETS RESULTS FOR PHOS CMP CBC PTH PROCRE Performed By: #### L 501.9520, L500.4050, L500.4100, L501.5200, L100.0100, L501.9985 #### [facility] [address] [place], [address] Glucose [Mass/Vol] 196 mg/dL High 70-99 [facility] Comment on above: Order Comment: Order Date: 12/05/23 Order Info: 785- - CMP Order Info: [id number] - LIPID Order Info: [id number] - MG Order Info: 6-3 - TSH DR. LEZAMA GETS RESULTS FOR UA CMP LIPID MG TSH A1C DENIS GARRISON GETS RESULTS FOR PHOS CMP CBC PTH PROCRE Performed By: #### L 501.9520, L500.4050, L500.4100, L501.5200, L100.0100, L501.9985 #### [facility] [address] [place], [address] Potassium [Moles/Vol] 4.8 mmol/L Normal 3.3-5.1 [facility] Comment on above: Order Comment: Order Date: 12/05/23 Order Info: [id number] - CMP Order Info: [id number] - LIPID Order Info: [id number] - MG Order Info: 3 - TSH DR. LEZAMA GETS RESULTS FOR [facility] CMP LIPID MG TSH A1C DENIS GARRISON GETS RESULTS FOR PHOS CMP CBC PTH PROCRE Performed By: #### L 501.9520, L500.4050, L500.4100, L501.5200, L100.0100, L501.9985 #### [facility] [address] [place], [address] Sodium [Moles/Vol] 136 mmol/L Normal 133-145 [facility] Comment on above: Order Comment: Order Date: 12/05/23 Order Info: 785- - CMP Order Info: [id number] - LIPID Order Info: [id number] - MG Order Info: 6-3 - TSH DR. LEZAMA GETS RESULTS FOR [facility] CMP LIPID MG TSH A1C DENIS GARRISON GETS RESULTS FOR PHOS CMP CBC PTH PROCRE Performed By: #### L 501.9520, L500.4050, L500.4100, L501.5200, L100.0100, L501.9985 #### [facility] [address] [place], [address] T PROT 6.2 g/dL Normal 5.9-8.4 [facility] Comment on above: Order Comment: Order Date: 12/05/23 Order Info: 07-1 - CMP Order Info: [id number] - LIPID Order Info: [id number] - MG Order Info: 6-3 - TSH DR. LEZAMA GETS RESULTS FOR UA CMP LIPID MG TSH A1C DENIS GARRISON GETS RESULTS FOR PHOS CMP CBC PTH PROCRE Performed By: #### L 501.9520, L500.4050, L500.4100, L501.5200, L100.0100, L501.9985 #### [facility] [address] [place], [place], [id number] Urea nitrogen [Mass/Vol] 54 mg/dL High 4-19 [facility] Comment on above: Order Comment: Order Date: 12/05/23 Order Info: [id number] - CMP Order Info: [id number] - LIPID Order Info: [id number] - MG Order Info: 3015-3 - TSH DR. LEZAMA GETS RESULTS FOR UA CMP LIPID MG TSH A1C DENIS GARRISON GETS RESULTS FOR PHOS CMP CBC PTH PROCRE Performed By: #### L 501.9520, L500.4050, L500.4100, L501.5200, L100.0100, L501.9985 #### [facility] [address] [place], [address] Eosinophil percentageOrdered By: Piedad Han on 06-04-2024 Eosinophils/100 WBC (Bld) 4.8 % 0-5 [facility] Erythrocyte distribution wid th ratioOrdered By: Piedad Han on 06-04-2024 Erythrocyte distribution width (RBC) [Ratio] 13.2 % 11.6-14.6 [facility] Erythrocyte distribution wid th standard deviationOrdered By: Piedad Han on 06-04-2024 Erythrocyte distribution width (RBC) [Ratio] 44.7 fl High 35.1-43.9 [facility] Glomerular filtration rate ( GFR) estimation/1.73 sq m using serum, plasma, or whole bOrdered By: Piedad Han on 04-22-2025 GFR/1.73 sq M.predicted among non-blacks MDRD (S/P/Bld) [Vol rate/Area] 26 mL/min/{1.73_m2} Low >60 [facility] Comment on above: mL/min/1.73m2 CKD-EP I Creatinine Equation (2020) Hematocrit Auto (Bld) [Volum e fraction]Ordered By: Piedad Han on 06-04-2024 Hematocrit (Bld) [Volume fraction] 40.7 % 40-54 [facility] Hemoglobin A1con 06-04-2024 HbA1c (Bld) [Mass fraction] 7.2 % High <=5.6 [facility] Comment on above: Order Comment: Order Date: 12/05/23 Order Info: [id number] - A1C Result Comment: Norm al < 5.7 % Prediabetic 5.7 - 6.4 % Diabetic >or= 6.5 % Please note range changes. Performed By: #### L 501.9520, L500.4050, L500.4100, L501.5200, L100.0100, L501.9985 #### [facility] [place], [address] Hemoglobin A1c percentageOrd ered By: Piedad Han on 06-04-2024 HbA1c (Bld) [Mass fraction] 7.2 % High <5.7 [facility] Comment on above: Normal < 5.7 % Predi abetic 5.7 - 6.4 % Diabetic >or= 6.5 % Please note range changes. Hemoglobin measurementOrdere d By: Piedad Han on 06-04-2024 Hemoglobin (Bld) [Mass/Vol] 13.2 g/dL 13.0-16.5 [facility] Immature granulocytes/100 WB C Auto (Bld)Ordered By: Piedad Han on 06-04-2024 Immature granulocytes/100 WBC (Bld) 0.600 % 0.0-0.9 [facility] Comment on above: IG% - Immature Granu locytes (promyelocytes, myelocytes and metamyelocytes) > 1% indicates that a LEFT SHIFT is Present. Ketones Test strip Ql (U)Ord ered By: Piedad Han on 06-04-2024 Ketones Ql (U) Negative Negative [facility] LDL calc ser/plasOrdered By: Piedad Han on 06-04-2024 Cholesterol in LDL [Mass/Vol] 64 mg/dL [facility] Comment on above: Actxavjnxk=160-202 m g/dL & Higher Umli=399 mg/dL or greater Laboratory - Chemistry and C hemistry - challengeOrdered By: Piedad Han on 06-04-2024 AST [Catalytic activity/Vol] 39 U/L High <38 [facility] Lipid Profileon 06-04-2024 CHOL:HDL 3.62 Normal [facility] Comment on above: Order Comment: Order Date: 12/05/23 Order Info: [id number] - CMP Order Info: - LIPID Order Info: [id number] - MG Order Info: [id number] - TSH DR. LEZAMA GETS RESULTS FOR [facility] CMP LIPID MG TSH A1C DENIS GARRISON GETS RESULTS FOR PHOS CMP CBC PTH PROCRE Performed By: #### L 501.9520, L500.4050, L500.4100, L501.5200, L100.0100, L501.9985 #### [facility] [address] [place], [address] Cholesterol [Mass/Vol] 134 mg/dL Normal <=200 [facility] Comment on above: Order Comment: Order Date: 12/05/23 Order Info: [id number] - CMP Order Info: - LIPID Order Info: [id number] - MG Order Info: [id number] - TSH DR. LEZAMA GETS RESULTS FOR [facility] CMP LIPID MG TSH A1C DENIS GARRISON GETS RESULTS FOR PHOS CMP CBC PTH PROCRE Result Comment: Chol esterol level, Desirable <200 mg/dL Borderline high cholesterol 200-239 mg/dL High cholesterol >=240 mg/dL Recommendations of the NCEP Adult Treatment Panel for the following risk-cutoff thresholds for the [place] population. Performed By: #### L 501.9520, L500.4050, L500.4100, L501.5200, L100.0100, L501.9985 #### [facility] [address] [place], [address] Cholesterol in HDL [Mass/Vol] 37 mg/dL Low [facility] Comment on above: Order Comment: Order Date: 12/05/23 Order Info: [id number] - CMP Order Info: [id number] - LIPID Order Info: [id number] - MG Order Info: 3016-3 - TSH [...] 501.9520, L500.4050, L500.4100, L501.5200, L100.0100, L501.9985 #### [facility] [address] [place], [address] Cholesterol in LDL [Mass/Vol] 64 mg/dL Normal [facility] Comment on above: Order Comment: Order Date: 12/05/23 Order Info: [id number] - CMP Order Info: - LIPID Order Info: [id number] - MG Order Info: [id number] - TSH DR. LEZAMA GETS RESULTS FOR UAC CMP LIPID MG TSH A1C DENIS GARRISON GETS RESULTS FOR PHOS CMP CBC PTH PROCRE Result Comment: Bord uwgdlj=222-673 mg/dL Higher Nigb=742 mg/dL or greater Performed By: #### L 501.9520, L500.4050, L500.4100, L501.5200, L100.0100, L501.9985 #### [facility] [address] [place], [address] Cholesterol in VLDL [Mass/Vol] 33 mg/dL Normal 5-40 [facility] Comment on above: Order Comment: Order Date: 12/05/23 Order Info: [id number] - CMP Order Info: - LIPID Order Info: [id number] - MG Order Info: [id number] - TSH DR. LEZAMA GETS RESULTS FOR UA CMP LIPID MG TSH A1C DENIS GARRISON GETS RESULTS FOR PHOS CMP CBC PTH PROCRE Performed By: #### L 501.9520, L500.4050, L500.4100, L501.5200, L100.0100, L501.9985 #### [facility] [address] [place], [address] Triglyceride [Mass/Vol] 166 mg/dL Normal [facility] Comment on above: Order Comment: Order Date: 12/05/23 Order Info: [id number] - CMP Order Info: - LIPID Order Info: [id number] - MG Order Info: [id number] - TSH DR. LEZAMA GETS RESULTS FOR [facility] CMP LIPID MG TSH A1C DENIS GARRISON GETS RESULTS FOR PHOS CMP CBC PTH PROCRE Result Comment: The drugs N-Acetylcysteine and Metamizole may falsely depress this assay. Normal range: <150 mg/dL Borderline High: 150-199 mg/dL High: 200-499 mg/dL Very High: >500 mg/dL Performed By: #### L 501.9520, L500.4050, L500.4100, L501.5200, L100.0100, L501.9985 #### [facility] [address] [place], [address] MCV (mean corpuscular volume ) determinationOrdered By: Piedad Han on 06-04-2024 MCV (RBC) [Entitic vol] 94.9 fL High 80-94 [facility] Magnesiumon 06-04-2024 Magnesium [Mass/Vol] 2.2 mg/dL Normal 1.5-2.2 [facility] Comment on above: Order Comment: Order Date: 12/05/23 Order Info: [id number] - CMP Order Info: - LIPID Order Info: [id number] - MG Order Info: [id number] - TSH DR. LEZAMA GETS RESULTS FOR UA CMP LIPID MG TSH A1C DENIS GARRISON GETS RESULTS FOR PHOS CMP CBC PTH PROCRE Performed By: #### L 501.9520, L500.4050, L500.4100, L501.5200, L100.0100, L501.9985 #### [facility] [place], [address] Magnesium measurement (mass/ volume)Ordered By: Piedad Han on 06-04-2024 Magnesium (Unsp spec) [Mass/Vol] 2.2 mg/dL 1.5-2.2 [facility] Mean corpuscular hemoglobin (MCH) determinationOrdered By: Piedad Han on 06-04-2024 MCH (RBC) [Entitic mass] 30.8 pg 27.0-32.0 [facility] Mean corpuscular hemoglobin concentration (MCHC) determinationOrdered By: Piedad Han on 06-04-2024 MCHC (RBC) [Mass/Vol] 32.4 g/dL 32-36 [facility] Mean platelet volume determi nationOrdered By: Piedad Han on 06-04-2024 Platelet mean volume (Bld) [Entitic vol] 8.5 fL 6.2-12.0 [facility] Microscopic analysis of urin e for red blood cells (RBC)Ordered By: Piedad Han on 06-04-2024 Microscopic analysis of urine for red blood cells (RBC) 0-5 SEEN /hpf 0-5 [facility] Monocyte percentageOrdered B y: Piedad Han on 06-04-2024 Monocytes/100 WBC (Bld) 6.5 % 0-10 [facility] Mucus LM Ql (Urine sed)Order ed By: Piedad Han on 06-04-2024 Mucus Ql (Urine sed) 0 SEEN /hpf [facility] Neutrophil percentageOrdered By: Piedad Han on 06-04-2024 Neutrophils/100 WBC (Bld) 71.9 % High 47-70 [facility] Nitrite Test strip Ql (U)Ord ered By: Piedad Han on 06-04-2024 Nitrite Ql (U) Negative Negative [facility] Nucleated red blood cell per centageOrdered By: Piedad Han on 06-04-2024 Nucleated RBC/100 WBC (Bld) [Ratio] 0 % 0-5 [facility] PTHINon 06-04-2024 PTH 109 pg/mL High 11-61 [facility] Comment on above: Performed By: #### L 400.0001 #### [facility] [address] [place], [address] Phosphoruson 06-04-2024 Phosphate [Mass/Vol] 4.4 mg/dL Normal 2.7-4.5 [facility] Comment on above: Order Comment: CLEAN CATCH Performed By: #### L 400.0001 #### [facility] [address] [place], [address] Platelet countOrdered By: May Han on 06-04-2024 Platelets (Bld) [#/Vol] 207 10*3/uL 150-450 [facility] Potassium measurement (mass/ volume)Ordered By: Piedad Han on 06-04-2024 Potassium (Unsp spec) [Mass/Vol] 4.8 mmol/L 3.3-5.1 [facility] Protein Test strip Ql (U)Ord ered By: Piedad Han on 06-04-2024 Protein Ql (U) 100 mg/dl High Negative [facility] Protein+Creatinine Ratio,Uri neon 06-04-2024 PROT:CRE RATIO 3393 mg/g CRE High 0-200 [facility] Comment on above: Performed By: #### L 400.0001 #### [facility] [address] [place], [address] UR CREAT 44.80 mg/dL Normal 39.00-259. 00 [facility] Comment on above: Performed By: #### L 400.0001 #### [facility] [address] [place], [address] RBC Auto (Bld) [#/Vol]Ordere d By: Piedad Han on 06-04-2024 RBC (Bld) [#/Vol] 4.29 10*6/uL Low 4.6-6.2 [facility] Random urine creatinine priyanka urement (mass/volume)Ordered By: Piedad Han on 06-04-2024 Creatinine Unsp time (U) [Mass/Vol] 44.80 mg/dL 39.00-259. 00 [facility] Screening total cholesterol/ high density lipoprotein (HDL) cholesterol ratioOrdered By: Peidad Han on 06-04-2024 Cholesterol.total/Choles terol in HDL [Mass ratio] 3.62 {ratio} [facility] Serum creatinine measurement (mass/volume)Ordered By: Piedad Han on 06-04-2024 Creatinine [Mass/Vol] 2.61 mg/dL High 0.70-1.20 [facility] Serum globulin measurementOr dered By: Piedad Han on 06-04-2024 Globulin (S) [Mass/Vol] 2.8 g/dL 2.2-4.2 [facility] Serum glucose measurement (m ass/volume)Ordered By: Piedad Han on 06-04-2024 Glucose [Mass/Vol] 196 mg/dL High 70-99 [facility] Serum or plasma alanine menezes otransferase (ALT) measurementOrdered By: Piedad Han on 06-04-2024 ALT [Catalytic activity/Vol] 56 U/L High <47 [facility] Serum or plasma albumin priyanka urement (mass/volume)Ordered By: Piedad Han on 06-04-2024 Albumin [Mass/Vol] 3.4 g/dL 3.4-4.8 [facility] Serum or plasma albumin/glob ulin mass ratioOrdered By: Piedad Han on 06-04-2024 Albumin/Globulin [Mass ratio] 1.2 {ratio} 0.9-2.4 [facility] Serum or plasma alkaline enio sphatase measurementOrdered By: Piedad Han on 06-04-2024 ALP [Catalytic activity/Vol] 121 U/L 40-129 [facility] Serum or plasma calcium priyanka urement (mass/volume)Ordered By: Piedad Han on 06-04-2024 Calcium [Mass/Vol] 8.8 mg/dL 7.6-11.0 [facility] Serum or plasma cholesterol in HDL measurement (mass/volume)Ordered By: Piedad Han on 06-04-2024 Cholesterol in HDL [Mass/Vol] 37 mg/dL Low >40 [facility] Comment on above: National Cholesterol Education Program (NCEP) guidelines:<40 mg/dL: Low HDL-cholesterol (major risk factor for CHD)>= 60 mg/dL: High HDL-cholesterol (negative risk factor for CHD)HDL-cholesterol is affected by a number of factors, e.g. smoking, exercise, hormones, sex and age. Serum or plasma cholesterol measurement (mass/volume)Ordered By: Piedad Han on 06-04-2024 Cholesterol [Mass/Vol] 134 mg/dL <201 [facility] Comment on above: Cholesterol level, D esirable <200 mg/dLBorderline high cholesterol 200-239 mg/dLHigh cholesterol >=240 mg/dLRecommendations of the NCEP Adult Treatment Panel for the following risk-cutoff thresholds for the [place] population. Serum or plasma urea nitroge n measurement (mass/volume)Ordered By: Piedad Han on 06-04-2024 Urea nitrogen [Mass/Vol] 54 mg/dL High 4-19 [facility] Sodium levelOrdered By: Piedad Han on 06-04-2024 Sodium [Moles/Vol] 136 mmol/L 133-145 [facility] Squamous epithelial cells de tection in urine sediment by light microscopyOrdered By: Piedad Han on 06-04-2024 Epithelial cells.squamous LM Ql (Urine sed) 0 SEEN /hpf 0-5 [facility] T4 freeOrdered By: Piedad vale on 06-04-2024 Free T4 [Mass/Vol] 1.00 ng/dL 0.76-1.46 [facility] TSH DL <= 0.005 mIU/L QnOrde red By: Piedad Han on 06-04-2024 TSH Qn 8.780 uIU/mL High 0.300-4.20 0 [facility] Thyroid Stim Hormone (TSH)on 06-04-2024 TSH 8.780 uIU/mL High 0.300-4.20 0 [facility] Comment on above: Order Comment: Order Date: 12/05/23 Order Info: [id number] - CMP Order Info: [id number] - LIPID Order Info: [id number] - MG Order Info: [id number] - TSH DR. LEZAMA GETS RESULTS FOR UAC CMP LIPID MG TSH A1C DENIS GARRISON GETS RESULTS FOR PHOS CMP CBC PTH PROCRE Performed By: #### L 501.9520, L500.4050, L500.4100, L501.5200, L100.0100, L501.9985 #### [facility] [address] [place], [address] Total proteinOrdered By: Zhang Han on 06-04-2024 Protein [Mass/Vol] 6.2 g/dL 5.9-8.4 [facility] Triglycerides measurementOrd ered By: Piedad Han on 06-04-2024 Triglyceride [Mass/Vol] 166 mg/dL <199 [facility] Comment on above: The drugs N-Acetylcy steine and Metamizole may falsely depress this assay. Normal range: <150 mg/dLBorderline High: 150-199 mg/dLHigh: 200-499 mg/dLVery High: >500 mg/dL Urinalysis, Completeon 06-04 BILIRUBIN URINE Negative Normal Negative [facility] Comment on above: Order Comment: CLEAN CATCH Performed By: #### L [id number] #### [facility] [address] [place], [address] Clarity (U) Clear Normal Clear [facility] Comment on above: Order Comment: CLEAN CATCH Performed By: #### L 400.0001 #### [facility] [address] [place], [address] Color (U) Straw Normal Yellow [facility] Comment on above: Order Comment: CLEAN CATCH Performed By: #### L 400.0001 #### [facility] [address] [place], [address] GLUCOSE, UR 1000 mg/dl Abnormal Normal [facility] Comment on above: Order Comment: CLEAN CATCH Performed By: #### L [id number] #### [facility] [address] [place], [address] KETONE UR Negative Normal Negative [facility] Comment on above: Order Comment: CLEAN CATCH Performed By: #### L [id number] #### [facility] [address] [place], [address] LEUK ESTERASE Negative Normal Negative [facility] Comment on above: Order Comment: CLEAN CATCH Performed By: #### L [id number] #### [facility] [address] [place], [address] Nitrite Ql (U) Negative Normal Negative [facility] Comment on above: Order Comment: CLEAN CATCH Performed By: #### L 400.0001 #### [facility] [address] [place], [address] OCCULT BLOOD-UR 25 /ul Abnormal Negative [facility] Comment on above: Order Comment: CLEAN CATCH Performed By: #### L 400.0001 #### [facility] [address] [place], [address] pH UR 6.0 Normal 5.0 - 8.0 [facility] Comment on above: Order Comment: CLEAN CATCH Performed By: #### L [id number] #### [facility] [address] [place], [address] PROT DIPSTX 100 mg/dl Abnormal Negative [facility] Comment on above: Order Comment: CLEAN CATCH Performed By: #### L 400.0001 #### [facility] [address] [place], [address] SP.GR. DIPSTX 1.015 Normal 1.002-1.03 0 [facility] Comment on above: Order Comment: CLEAN CATCH Performed By: #### L [id number] #### [facility] [address] [place], [address] UROBILI Normal Normal Normal [facility] Comment on above: Order Comment: CLEAN CATCH Performed By: #### L [id number] #### [facility] [address] [place], [address] Urine clarityOrdered By: Zhang Han on 06-04-2024 Clarity (U) Clear Clear [facility] Urine color determinationOrd ered By: Piedad Han on 06-04-2024 Color (U) Straw Yellow [facility] Urine glucose detectionOrder ed By: Piedad Han on 06-04-2024 Glucose Ql (U) 1000 mg/dl High Normal [facility] Urine leukocyte esterase det ection by dipstickOrdered By: Piedad Han on 06-04-2024 Leukocyte esterase Test strip Ql (U) Negative Negative [facility] Urine pHOrdered By: Piedad ring on 06-04-2024 pH (U) 6.0 [pH] 5.0 - 8.0 [facility] Urine protein measurement (m ass/volume)Ordered By: Piedad Han on 06-04-2024 Protein (U) [Mass/Vol] 152.0 mg/dL High 0.0-12.0 [facility] Comment on above: Performed By: #### L 400.0001 #### [facility] [address] [place] [address], [id number] Urine protein/creatinine mas s ratioOrdered By: Piedad Han on 06-04-2024 Protein/Creatinine (U) [Mass ratio] 3393 mg/g CRE High 0-200 [facility] Urine sediment bacteria coun t by microscopy (number/high power field)Ordered By: Piedad Han on 06-04-2024 Bacteria LM.HPF (Urine sed) [#/Area] 0 /[HPF] None Seen [facility] Urine specific gravity measu rementOrdered By: Piedad Han on 06-04-2024 Specific gravity (U) [Rel density] 1.015 1.002-1.03 0 [facility] Urine urobilinogen measureme ntOrdered By: Piedad Han on 06-04-2024 Urobilinogen Ql (U) Normal mg/dl Normal [facility] White blood cell (WBC) count Ordered By: Piedad Han on 06-04-2024 WBC (Bld) [#/Vol] 8.6 10*3/uL 4.4-11.0 [facility] White blood cell countOrdere d By: Piedad Han on 06-04-2024 White blood cell count 0-5 SEEN /hpf 0-5 [facility] Chung 05-31-2024 THERESEN Telephone (STED) -- GAMALIEL GRIFFIN ([id number]) 1955 M Date Time Provider Department 05/31/24 [...] Assessed Reason for Visit: Orders [681] Cmt: [facility] Prescriptions as of 05/31/2024 - Blood-Glucose Sensor (FREESTYLE YAZMIN 3 PLUS SENSOR) kathleen CHANGE SENSOR EVERY 15 days. USE FOR CONTINUOUS GLUCOSE MONITORING. MULTIPLE INSULIN INJECTIONS E11.9 - Blood-Glucose Meter,Continuous (FREESTYLE YAZMIN 3 READER) [facility] DISPENSE ONE READER KIT. USE FOR CONTINUOUS [...] mouth two times a day. - Insulin [place], Disposable, (BD ULTRA-FINE KENN PEN NEEDLE) 32 [...] Status:Closed by YADIRA AHN on 05/31/24 Normal [facility] ALBUMIN/CREATININE RATIO, UR INEon 05-29-2024 Albumin DL <= 20 mg/L (U) [Mass/Vol] 1045.6 mg/L Normal [facility] Comment on above: Order Comment: Nasir grace Type: BLOOD SPECIMEN Ordering Facility: [facility] Address: [address] [place] [address] Performed By: #### L IPNF #### [facility] CLIA [id number] [address] [place] [address] [place] Albumin/Creatinine (U) [Mass ratio] 2796 mg/g High <30 [facility] Comment on above: Order Comment: Nasir grace Type: BLOOD SPECIMEN Ordering Facility: [facility] Address: [address] [place] [address] Result Comment: Not calculated Adult Male and Female Nephrotic Criteria: <30 mg/g is considered normal to mildly increased 30-300 mg/g is considered moderately increased >300 mg/g is considered severely increased KDIGO. (2013). KDIGO 2012 Clinical Practice Guideline for the Evaluation and Management of Chronic Kidney Disease. Official Journal of the International Society of Nephrology, 3(1), 1-150. Performed By: #### L IPNF #### [facility] CLIA [id number] [address] [place] [address] [place] Creatinine (U) [Mass/Vol] 37.4 mg/dL Normal 20.0-300.0 [facility] Comment on above: Order Comment: Speci men Type: BLOOD SPECIMEN Ordering Facility: [facility] Address: [address] [place] [address] Performed By: #### L IPNF #### [facility] CLIA [id number] [address] [place] [address] OF [facility] CNOVon 05-29-2024 CNOV Office Visit (ENWSTR ) -- GABYGAMALIEL D ([id number]) 1955 M Date Time Provider Department 05/29/24 11:45 AM MONICA HOYT ENWSTR During your visit today, we recorded the following information about you: Temperature Pulse Respiration Weight 98.5 degrees 55/minute 14/minute 83.2 kg Monica Hoyt, [employer]OPER.[employer]STUME [employer]APER 06/29/2024 12:38 PM Addendum OFFICE VISIT PROGRESS [...] to OM2 /Left Radial to [place] [facility] [place]X DX W/COLLJ SPEC WHEN PFRMD [...] INSULIN INJECTIONS (more content not included)... Normal [facility] Comprehensive metabolic 2000 panelon 05-29-2024 Albumin [Mass/Vol] 3.5 g/dL Low 3.9-4.9 [facility] Comment on above: Order Comment: Speci men Type: BLOOD SPECIMEN Ordering Facility: [facility] Address: [address] [place] [address] Performed By: #### L IPNF #### [facility] CLIA [id number] [address] [place] [address] [place] ALP [Catalytic activity/Vol] 126 U/L High 38-113 [facility] Comment on above: Order Comment: Speci men Type: BLOOD SPECIMEN Ordering Facility: [facility] Address: [address] [place] [address] Performed By: #### L IPNF #### [facility] CLIA [id number] [address] [place] [address] [place] ALT [Catalytic activity/Vol] 45 U/L Normal 10-54 [facility] Comment on above: Order Comment: Speci men Type: BLOOD SPECIMEN Ordering Facility: [facility] Address: [address] [place] [address] Performed By: #### L IPNF #### [facility] CLIA [id number] [address] [place] [address] [place] Anion gap [Moles/Vol] 7 mmol/L Low 8-15 [facility] Comment on above: Order Comment: Speci men Type: BLOOD SPECIMEN Ordering Facility: [facility] Address: [address] [place] [address] Performed By: #### L IPNF #### [facility] CLIA [id number] [address] [place] [address] [place] AST [Catalytic activity/Vol] 31 U/L Normal 14-40 [facility] Comment on above: Order Comment: Speci men Type: BLOOD SPECIMEN Ordering Facility: [facility] Address: [address] [place] [address] Performed By: #### L IPNF #### [facility] CLIA [id number] [address] [place] [address] [place] Bilirubin [Mass/Vol] 0.2 mg/dL Normal 0.2-1.3 [facility] Comment on above: Order Comment: Speci men Type: BLOOD SPECIMEN Ordering Facility: [facility] Address: [address] [place] [address] Performed By: #### L IPNF #### [facility] CLIA [id number] [address] [place] [address] [place] Calcium [Mass/Vol] 9.3 mg/dL Normal 8.5-10.2 [facility] Comment on above: Order Comment: Speci men Type: BLOOD SPECIMEN Ordering Facility: [facility] Address: [address] [place], [place] [id number] Performed By: #### L IPNF #### [facility] CLIA [id number] [address] [place] [address] [place] Chloride [Moles/Vol] 102 mmol/L Normal 98-107 [facility] Comment on above: Order Comment: Speci men Type: BLOOD SPECIMEN Ordering Facility: [facility] Address: [address] [place] [address] Performed By: #### L IPNF #### [facility] CLIA [id number] [address] [place] [address] [place] CO2 [Moles/Vol] 25 mmol/L Normal 22-30 [facility] Comment on above: Order Comment: Speci men Type: BLOOD SPECIMEN Ordering Facility: [facility] Address: [address] [place] [address] Performed By: #### L IPNF #### [facility] CLIA [id number] [address] [place] [address] [place] Creatinine [Mass/Vol] 2.31 mg/dL High 0.73-1.22 [facility] Comment on above: Order Comment: Speci men Type: BLOOD SPECIMEN Ordering Facility: [facility] Address: [address] [place] [address] Performed By: #### L IPNF #### [facility] CLIA [id number] [address] [place] [address] [place] Creatinine and Glomerular filtration rate.predicted panel (S/P/Bld) 30 mL/min/1.73m??? Low >=60 [facility] Comment on above: Order Comment: Speci men Type: BLOOD SPECIMEN Ordering Facility: [facility] Address: [address] [place] [address] Result Comment: Soraya mated Glomerular Filtration Rate [...] GFR. Performed By: #### L IPNF #### [facility] CLIA [id number] [address] [place], [place] [id number] [place] Glucose [Mass/Vol] 90 mg/dL Normal 74-99 [facility] Comment on above: Order Comment: Nasir grace Type: BLOOD SPECIMEN Ordering Facility: [facility] Address: [address] [place] [address] Result Comment: The [place] Diabetes Association (ADA) provides guidance for cutoff [...] Standards of Medical Care in Diabetes 2016, [place] Diabetes Association. Diabetes Care. 2016.39(Suppl 1). Performed By: #### L IPNF #### [facility] CLIA [id number] [address] [place] [address] [place] Potassium [Moles/Vol] 5.1 mmol/L Normal 3.7-5.1 [facility] Comment on above: Order Comment: Nasir grace Type: BLOOD SPECIMEN Ordering Facility: [facility] Address: [address] [place] [address] Performed By: #### L IPNF #### [facility] CLIA [id number] [address] [place] [address] [place] Protein [Mass/Vol] 6.4 g/dL Normal 6.3-8.0 [facility] Comment on above: Order Comment: Nasir grace Type: BLOOD SPECIMEN Ordering Facility: [facility] Address: [address] [place] [address] Performed By: #### L IPNF #### [facility] CLIA [id number] [address] [place] [address] [place] Sodium [Moles/Vol] 134 mmol/L Low 136-144 [facility] Comment on above: Order Comment: Speci men Type: BLOOD SPECIMEN Ordering Facility: [facility] Address: [address] [place] [address] Performed By: #### L IPNF #### [facility] CLIA [id number] [address] [place] [address] [place] Urea nitrogen [Mass/Vol] 41 mg/dL High 9-24 [facility] Comment on above: Order Comment: Nasir men Type: BLOOD SPECIMEN Ordering Facility: [facility] Address: [address] [place] [address] Performed By: #### L IPNF #### [facility] CLIA [id number] [address] [place] [address] [place] HbA1c (Bld)on 05-29-2024 Average glucose Estimated from glycated hemoglobin (Bld) [Mass/Vol] 163 mg/dL Normal [facility] Comment on above: Order Comment: Nasir men Type: BLOOD SPECIMEN Ordering Facility: [facility] Address: [address] [place] [address] Result Comment: eAG: (Estimated average glucose) is a calculated value from HgbA1c and is delivery representative of the average blood glucose level in the last 2-3 month period. Performed By: #### L IPNF #### [facility] CLIA [id number] [address] [place] [address] [place] HbA1c (Bld) [Mass fraction] 7.3 % High 4.3-5.6 [facility] Comment on above: Order Comment: Nasir sanjay Type: BLOOD SPECIMEN Ordering Facility: [facility] Address: [address] [place] [address] Result Comment: Amer [place] Diabetes Association guidelines indicate that patients with HgbA1c in the range 5.7-6.4% are at increased risk for development of diabetes, and intervention by lifestyle modification may be beneficial. HgbA1c greater or equal to 6.5% is considered diagnostic of diabetes. Performed By: #### L IPNF #### [facility] CLIA [id number] [address] [place] [address] [facility] [place] LIPID PANEL, NONFASTINGon Cholesterol [Mass/Vol] 130 mg/dL Normal <200 [facility] Comment on above: Order Comment: Patriciai men Type: BLOOD SPECIMEN Ordering Facility: [facility] Address: [address] [place] [address] Result Comment: <200 mg/dL, Desirable 200-239 mg/dL, Borderline high >239 mg/dL, High Performed By: #### L IPNF #### [facility] CLIA [id number] [address] [place] [address] [place] HDL CHOLESTEROL, NF 39 mg/dL Low >39 [facility] Comment on above: Order Comment: Nasir grace Type: BLOOD SPECIMEN Ordering Facility: [facility] Address: [address] [place] [address] Result Comment: 40-5 9 mg/dL, Acceptable >59 mg/dL, High: Negative risk factor for coronary heart disease <40 mg/dL, Low: Positive risk factor for coronary heart disease Performed By: #### L IPNF #### [facility] CLIA [id number] [address] [place] [address] [place] LDL CHOLESTEROL, NF 68 mg/dL Normal <100 [facility] Comment on above: Order Comment: Patriciai men Type: BLOOD SPECIMEN Ordering Facility: [facility] Address: [address] [place] [address] Result Comment: <100 mg/dL, Optimal 100-129 mg/dL, Near optimal/above optimal 130-159 mg/dL, Borderline high 160-189 mg/dL, High >189 mg/dL, Very high Secondary prevention optimal LDL Cholesterol levels are recommended to be < 70 mg/dL Performed By: #### L IPNF #### [facility] CLIA [id number] [address] [place] [address] [place] LDL/HDL RATIO, NF 1.74 mg/dL Normal <2.54 [facility] Comment on above: Order Comment: Speci men Type: BLOOD SPECIMEN Ordering Facility: [facility] Address: [address] [place] [address] Result Comment: Fatoumata luciano: 1. National Cholesterol Education Program ATP III Guideline At-A-Glance Quick Desk Reference: National Heart, Lung, and Blood [place]. National Institutes of Health. 2001: NIH Publication No. 01-3305. 2. An International Atherosclerosis Society position paper: global recommendations for the management of dyslipidemia: executive summary, Atherosclerosis. 2014: 232(2):410-413. Performed By: #### L IPNF #### [facility] CLIA [id number] [address] [place] [address] [place] NON HDL CHOL, NF 91 mg/dL Normal <130 [facility] Comment on above: Order Comment: Nasir grace Type: BLOOD SPECIMEN Ordering Facility: [facility] Address: [address] [place] [address] Result Comment: <130 mg/dL, Optimal 130-159 mg/dL, Near optimal/above optimal 160-189 mg/dL, Borderline high 190-219 mg/dL, High >219 mg/dL, Very high Secondary prevention optimal non HDL Cholesterol levels are recommended to be <100 mg/dL Performed By: #### L IPNF #### [facility] CLIA [id number] [address] [place] [address] [place] T CHOL/HDL RATIO NF 3.33 mg/dL Normal <5.10 [facility] Comment on above: Order Comment: Nasir grace Type: BLOOD SPECIMEN Ordering Facility: [facility] Address: [address] [place] [address] Performed By: #### L IPNF #### [facility] CLIA [id number] [address] [place] [address] [place] TRIGLYCERIDES, NF 117 mg/dL Normal <150 [facility] Comment on above: Order Comment: Nasir grace Type: BLOOD SPECIMEN Ordering Facility: [facility] Address: [address] [place] [address] Result Comment: <150 mg/dL, Normal 150-199 mg/dL, Borderline high 200-499 mg/dL, High >499 mg/dL, Very high Performed By: #### L IPNF #### [facility] CLIA [id number] [address] [place] [address] [place] VLDL CHOLESTEROL, NF 23 mg/dL Normal <30 [facility] Comment on above: Order Comment: Speci men Type: BLOOD SPECIMEN Ordering Facility: [facility] Address: [address] [place] [address] Performed By: #### L IPNF #### [facility] CLIA [id number] [address] [place] [address] [place] Echocardiogram study reportO rdered By: Emma Olmos on 04-10-2024 Study report [facility] [address] [place] [address]. [place] [address] Echo Complete 04/09/24 0946 MR#: [id number] Acct: [id number] Name: GAMALIEL GRIFFIN Rep #:[id number] : 1955 68 From: Emma almonte MD Attending Dr: Dr. Piedad Han MD Status: [facility] CLI Ordering Dr: Piedad Han MD Date: 04/09/24 Location: [facility] Sex: M C Admitted: Reason For [...] ~ Date Dictated: 04/09/24945 Date Transcribed: 04/10/241641 Resident Care Aid: Signed [facility] Work Phone: Echo Completeon 04-09-2024 Echo Complete [facility] [address] [place] [address] Echo Complete 04/09/2446 MR#: [id number] Acct: [id number] Name: GAMALIEL GRIFFIN Rep #: [id number] : 1955 68 From: Emma Olmos MD Attending Dr: Dr. Piedad Han MD Status: R [facility] Ordering Dr: Piedad Han MD Date: 04/09/24 Location: [facility] Sex: M C Admitted: Reason For [...] MD Date Dictated: 04/09/24945 Date Transcribed: 04/10/241641 Resident Care Aid: Signed Normal [facility] Vitamin D,25 Hydroxyon 04-04 Vitamin D 25-OH 49.0 ng/mL Normal [facility] Comment on above: Order Comment: Order Date: 04/02/24Order Info: [id number] - [id number] Result Comment: Marlee min D 25(OH) Status Range Deficiency <20 ng/mL (50nmol/L) Insufficiency 20 - 30 ng/mL (50 - 75 nmol/L) Sufficiency 30 - 100 ng/mL (75 - 250 nmol/L) Toxicity >100 ng/mL (>250 nmol/L) Performed By: #### L 400.0001, L501.0900 #### [facility] [address] [place], [address] [id number] DOrdered By: Emely Han on 04-02-2024 Vitamin D 25-Hydroxy 49.0 ng/mL [facility] Comment on above: Vitamin D 25(OH) Sta tus Range Deficiency <20 ng/mL (50nmol/L) Insufficiency 20 - 30 ng/mL (50 - 75 nmol/L) Sufficiency 30 - 100 ng/mL (75 - 250 nmol/L) Toxicity >100 ng/mL (>250 nmol/L) Absolute lymphocyte countOrd ered By: Piedad Han on 04-02-2024 Lymphocytes Auto (Unsp spec) [#/Vol] 0.93 10*3/uL 0.83-4.51 [facility] Absolute neutrophil countOrd ered By: Piedad Han on 04-02-2024 Neutrophils (Bld) [#/Vol] 4.9 10*3/uL 2.0-7.7 [facility] Albumin to globulin ratioOrd ered By: Piedad Han on 04-02-2024 Albumin/Globulin [Mass ratio] 0.7 {ratio} Low 0.9-2.4 [facility] Automated lymphocyte count a s percentage of total leukocytesOrdered By: Piedad Han on 04-02-2024 Lymphocytes/100 WBC Auto (Unsp spec) 13.5 % Low 19-41 [facility] Basophil percentageOrdered B y: Piedad Han on 04-02-2024 Basophils/100 WBC (Bld) 0.6 % 0-1 [facility] Bilirubin Test strip Ql (U)O rdered By: Piedad Han on 04-02-2024 Bilirubin Ql (U) Negative Negative [facility] Bilirubin, totalOrdered By: Piedad Han on 04-02-2024 Bilirubin [Mass/Vol] 0.20 mg/dL 0.20-1.00 [facility] Comment on above: For patients on eltr ombopag therapy, use of Dimension Mitchell TBIL is not recommended. Blood urea nitrogen (BUN)/cr eatinine ratioOrdered By: Piedad Han on 04-02-2024 Urea nitrogen/Creatinine [Mass ratio] 19.0 mg/mg 10-20 [facility] CBC W/Diff, Automatedon 03-16 Absolute Lymph 0.93 X10 3/uL Normal 0.83-4.51 [facility] Comment on above: Order Comment: Urine , Random Performed By: #### L 400.0001, L501.0900 #### [facility] [address] [place], [address] Absolute Neut 4.9 X10 3/uL Normal 2.0-7.7 [facility] Comment on above: Order Comment: Urine , Random Performed By: #### L 400.0001, L501.0900 #### [facility] [address] [place], [address] Basophils/100 WBC (Bld) 0.6 % Normal 0-1 [facility] Comment on above: Order Comment: Urine , Random Performed By: #### L 400.0001, L501.0900 #### [facility] [address] [place], [address] Eosinophils/100 WBC (Bld) 5.5 % High 0-5 [facility] Comment on above: Order Comment: Urine , Random Performed By: #### L 400.0001, L501.0900 #### [facility] [address] [place], [address] Erythrocyte distribution width (RBC) [Ratio] 13.3 % Normal 11.6-14.6 [facility] Comment on above: Order Comment: Urine , Random Performed By: #### L 400.0001, L501.0900 #### [facility] [address] [place], [address] Hematocrit (Bld) [Volume fraction] 41.6 % Normal 40-54 [facility] Comment on above: Order Comment: Urine , Random Performed By: #### L 400.0001, L501.0900 #### [facility] [address] [place], [address] Hemoglobin (Bld) [Mass/Vol] 13.2 g/dL Normal 13.0-16.5 [facility] Comment on above: Order Comment: Urine , Random Performed By: #### L 400.0001, L501.0900 #### [facility] [address] [place], [address] IG% 0.300 Normal 0.0-0.9 [facility] Comment on above: Order Comment: Urine , Random Result Comment: IG% - Immature Granulocytes (promyelocytes, myelocytes and metamyelocytes) > 1% indicates that a LEFT SHIFT is Present. Performed By: #### L 400.0001, L501.0900 #### [facility] [address] [place], [address] Lymphocytes/100 WBC (Bld) 13.5 % Low 19-41 [facility] Comment on above: Order Comment: Urine , Random Performed By: #### L 400.0001, L501.0900 #### [facility] [address] [place], [address] MCH (RBC) [Entitic mass] 29.7 pg Normal 27.0-32.0 [facility] Comment on above: Order Comment: Urine , Random Performed By: #### L 400.0001, L501.0900 #### [facility] [address] [place], [address] MCHC (RBC) [Mass/Vol] 31.7 g/dL Low 32-36 [facility] Comment on above: Order Comment: Urine , Random Performed By: #### L 400.0001, L501.0900 #### [facility] [address] [place], [address] MCV (RBC) [Entitic vol] 93.7 fL Normal 80-94 [facility] Comment on above: Order Comment: Urine , Random Performed By: #### L 400.0001, L501.0900 #### [facility] [address] [place], [address] Monocytes/100 WBC (Bld) 8.4 % Normal 0-10 [facility] Comment on above: Order Comment: Urine , Random Performed By: #### L 400.0001, L501.0900 #### [facility] [address] [place], [address] Neutrophils/100 WBC (Bld) 71.7 % High 47-70 [facility] Comment on above: Order Comment: Urine , Random Performed By: #### L 400.0001, L501.0900 #### [facility] [address] [place], [address] Nucleated RBC (Bld) [#/Vol] 0 10*3/uL Normal 0-5 [facility] Comment on above: Order Comment: Urine , Random Performed By: #### L 400.0001, L501.0900 #### [facility] [address] [place], [address] Platelet mean volume (Bld) [Entitic vol] 8.4 fL Normal 6.2-12.0 [facility] Comment on above: Order Comment: Urine , Random Performed By: #### L 400.0001, L501.0900 #### [facility] [address] [place], [address] Platelets (Bld) [#/Vol] 210 10*3/uL Normal 150-450 [facility] Comment on above: Order Comment: Urine , Random Performed By: #### L 400.0001, L501.0900 #### [facility] [address] [place], [address] RBC (Bld) [#/Vol] 4.44 10*6/uL Low 4.6-6.2 [facility] Comment on above: Order Comment: Urine , Random Performed By: #### L 400.0001, L501.0900 #### [facility] [address] [place], [address] RDW SD 45.2 fl High 35.1-43.9 [facility] Comment on above: Order Comment: Urine , Random Performed By: #### L 400.0001, L501.0900 #### [facility] [address] [place], [address] WBC (Bld) [#/Vol] 6.9 10*3/uL Normal 4.4-11.0 [facility] Comment on above: Order Comment: Urine , Random Performed By: #### L 400.0001, L501.0900 #### [facility] [address] [place], [address] Carbon dioxide measurementOr dered By: Piedad Han on 04-02-2024 CO2 [Moles/Vol] 27.0 mmol/L 21.0-32.0 [facility] Chloride measurementOrdered By: Piedad Han on 04-02-2024 Chloride [Moles/Vol] 104 mmol/L 98-107 [facility] Comprehensive Metabolic Prof ilon 04-02-2024 Albumin [Mass/Vol] 2.7 g/dL Low 3.2-5.0 [facility] Comment on above: Order Comment: Urine , Random Performed By: #### L 400.0001, L501.0900 #### [facility] [address] [place], [address] Albumin/Globulin [Mass ratio] 0.7 {ratio} Low 0.9-2.4 [facility] Comment on above: Order Comment: Urine , Random Performed By: #### L 400.0001, L501.0900 #### [facility] [address] [place], [address] ALK P 137 U/L High 45-117 [facility] Comment on above: Order Comment: Urine , Random Performed By: #### L 400.0001, L501.0900 #### [facility] [address] [place], [address] ALT [Catalytic activity/Vol] 53 U/L Normal 16-61 [facility] Comment on above: Order Comment: Urine , Random Performed By: #### L 400.0001, L501.0900 #### [facility] [address] [place], [address] AST [Catalytic activity/Vol] 40 U/L High 15-37 [facility] Comment on above: Order Comment: Urine , Random Performed By: #### L 400.0001, L501.0900 #### [facility] [address] [place], [address] Bilirubin [Mass/Vol] 0.20 mg/dL Normal 0.20-1.00 [facility] Comment on above: Order Comment: Urine , Random Result Comment: For patients on eltrombopag therapy, use of Dimension Mitchell TBIL is not recommended. Performed By: #### L 400.0001, L501.0900 #### [facility] [address] [place], [address] BUN/CRE 19.0 RATIO Normal 10-20 [facility] Comment on above: Order Comment: Urine , Random Performed By: #### L 400.0001, L501.0900 #### [facility] [address] [place], [address] CA,Total 9.0 mg/dL Normal 8.5-10.1 [facility] Comment on above: Order Comment: Urine , Random Performed By: #### L 400.0001, L501.0900 #### [facility] [address] [place], [address] Chloride [Moles/Vol] 104 mmol/L Normal 98-107 [facility] Comment on above: Order Comment: Urine , Random Performed By: #### L 400.0001, L501.0900 #### [facility] [address] [place], [address] CO2 [Moles/Vol] 27.0 mmol/L Normal 21.0-32.0 [facility] Comment on above: Order Comment: Urine , Random Performed By: #### L 400.0001, L501.0900 #### [facility] [address] [place], [address] Creatinine [Mass/Vol] 2.58 mg/dL High 0.70-1.30 [facility] Comment on above: Order Comment: Urine , Random Result Comment: The validity of the calculated GFR GFRAA in patients over 70 years has not been determined. Clinical correlation is essential. Performed By: #### L 400.0001, L501.0900 #### [facility] [address] [place], [address] EST GFR - AA 32 mL/min Low >60 [facility] Comment on above: Order Comment: Urine , Random Result Comment: Afri can Scottish GFR Calc Performed By: #### L 400.0001, L501.0900 #### [facility] [address] [place], [address] GAP 6 Normal 5-15 [facility] Comment on above: Order Comment: Urine , Random Performed By: #### L 400.0001, L501.0900 #### [facility] [address] [place], [address] GFR/1.73 sq M.predicted among non-blacks MDRD (S/P/Bld) [Vol rate/Area] 26 mL/min/{1.73_m2} Low >60 [facility] Comment on above: Order Comment: Urine , Random Result Comment: Non- GFR Calc Performed By: #### L 400.0001, L501.0900 #### [facility] [address] [place], [address] Globulin (S) [Mass/Vol] 3.7 g/dL Normal 2.2-4.2 [facility] Comment on above: Order Comment: Urine , Random Performed By: #### L 400.0001, L501.0900 #### [facility] [address] [place], [address] Glucose [Mass/Vol] 200 mg/dL High 74-106 [facility] Comment on above: Order Comment: Urine , Random Result Comment: Gluc ose result greater than or equal to 200 mg/dL suggests DIABETES MELLITUS per A.D.A. criteria. Performed By: #### L 400.0001, L501.0900 #### [facility] [address] [place], [address] Potassium [Moles/Vol] 4.5 mmol/L Normal 3.5-5.1 [facility] Comment on above: Order Comment: Urine , Random Performed By: #### L 400.0001, L501.0900 #### [facility] [address] [place], [address] Sodium [Moles/Vol] 137 mmol/L Normal 136-145 [facility] Comment on above: Order Comment: Urine , Random Performed By: #### L 400.0001, L501.0900 #### [facility] [address] [place], [address] T PROT 6.4 g/dL Normal 6.4-8.2 [facility] Comment on above: Order Comment: Urine , Random Performed By: #### L 400.0001, L501.0900 #### [facility] [address] [place], [address] Urea nitrogen [Mass/Vol] 49 mg/dL High 7-18 [facility] Comment on above: Order Comment: Urine , Random Performed By: #### L 400.0001, L501.0900 #### [facility] [address] [place], [address] Eosinophil percentageOrdered By: Piedad Han on 04-02-2024 Eosinophils/100 WBC (Bld) 5.5 % High 0-5 [facility] Epithelial cells.squamous LM Ql (Urine sed)Ordered By: Piedad Han on 04-02-2024 Epithelial cells.squamous LM.HPF (Urine sed) [#/Area] 0 /[HPF] 0-5 [facility] Erythrocyte distribution wid th ratioOrdered By: Piedad Han on 04-02-2024 Erythrocyte distribution width (RBC) [Ratio] 13.3 % 11.6-14.6 [facility] Erythrocyte distribution wid th standard deviationOrdered By: Piedad Han on 04-02-2024 Erythrocyte distribution width (RBC) [Entitic vol] 45.2 fL High 35.1-43.9 [facility] Erythrocyte distribution width (RBC) [Ratio] 45.2 fl High 35.1-43.9 [facility] Estimated glomerular filtrat ion rate (GFR) AmericanOrdered By: Piedad Han on 04-02-2024 Estimated GFR (MDRD) Amer 32 mL/min Low >60 [facility] Comment on above: GFR Calc Glomerular filtration rate ( GFR) estimationOrdered By: Piedad Han on 04-02-2024 Estimated GFR (MDRD) Non-Af Amer 26 mL/min Low >60 [facility] Comment on above: Non- GFR Calc GFR/1.73 sq M.predicted among non-blacks MDRD (S/P/Bld) [Vol rate/Area] 26 mL/min/{1.73_m2} Low >60 [facility] [facility] Comment on above: Non- GFR Calc Glucose Ql (U)Ordered By: May Han on 04-02-2024 Glucose (U) [Mass/Vol] 1000 mg/dL High Normal [facility] Glucose measurementOrdered B y: Piedad Han on 04-02-2024 Glucose [Mass/Vol] 200 mg/dL High 74-106 [facility] Comment on above: Glucose result great er than or equal to 200 mg/dLsuggests DIABETES MELLITUS per A.D.A. criteria. Hematocrit Auto (Bld) [Volum e fraction]Ordered By: Piedad Han on 04-02-2024 Hematocrit (Bld) [Volume fraction] 41.6 % 40-54 [facility] Hemoglobin A1con 04-02-2024 HbA1c (Bld) [Mass fraction] 6.9 % High 3.8-5.6 [facility] Comment on above: Order Comment: Order Date: 04/02/24Order Info: [id number] - A1C Result Comment: Norm al < 5.7 % Prediabetic 5.7 - 6.4 % Diabetic >or= 6.5 % Please note range changes. Performed By: #### L 400.0001, L501.0900 #### [facility] [place], [address] Hemoglobin A1c percentageOrd ered By: Piedad Han on 04-02-2024 HbA1c (Bld) [Mass fraction] 6.9 % High 3.8-5.6 [facility] Comment on above: Normal < 5.7 % Predi abetic 5.7 - 6.4 % Diabetic >or= 6.5 % Please note range changes. Hemoglobin measurementOrdere d By: Piedad Han on 04-02-2024 Hemoglobin (Bld) [Mass/Vol] 13.2 g/dL 13.0-16.5 [facility] High density lipoprotein (HD L) measurementOrdered By: Piedad Han on 04-02-2024 Cholesterol in HDL [Mass/Vol] 48 mg/dL >40 [facility] Comment on above: The drugs N-Acetylcy steine and Metamizole may falsely depress this assay. Reference Range HDL <40 mg/dL Low HDL Cholesterol HDL >or= 60 mg/dL High HDL Cholesterol Immature granulocytes/100 WB C Auto (Bld)Ordered By: Piedad Han on 04-02-2024 Immature granulocytes/100 WBC (Bld) 0.300 % 0.0-0.9 [facility] Comment on above: IG% - Immature Granu locytes (promyelocytes, myelocytes and metamyelocytes) > 1% indicates that a LEFT SHIFT is Present. Intact parathyroid hormone ( iPTH) measurementOrdered By: Piedad Han on 04-02-2024 Parathyroid Hormone (Intact) 91.1 pg/mL High 18.4-80.1 [facility] Ketones Test strip Ql (U)Ord ered By: Piedad Han on 04-02-2024 Ketones Ql (U) Negative Negative [facility] - Chemistry and C hemistry - challengeOrdered By: Piedad Han on 04-02-2024 AST [Catalytic activity/Vol] 40 U/L High 15-37 [facility] Lipid Profileon 04-02-2024 Cholesterol [Mass/Vol] 125 mg/dL Normal 200 [facility] Comment on above: Order Comment: Order Date: 04/02/24Order Info: [id number] - CMPOrder Info: [id number] - LIPID Result Comment: <200 mg/dL Desirable 200-240 mg/dL Borderline >240 mg/dL High Risk Performed By: #### L 400.0001, L501.0900 #### [facility] [address] [place], [address] Cholesterol in HDL [Mass/Vol] 48 mg/dL Normal [facility] Comment on above: Order Comment: Order Date: 04/02/24Order Info: [id number] - CMPOrder Info: [id number] - LIPID Result Comment: The drugs N-Acetylcysteine and Metamizole may falsely depress this assay. Reference Range HDL <40 mg/dL Low HDL Cholesterol HDL >or= 60 mg/dL High HDL Cholesterol Performed By: #### L 400.0001, L501.0900 #### [facility] [address] [place], [address] Cholesterol in LDL [Mass/Vol] 56 mg/dL Normal 0-130 [facility] Comment on above: Order Comment: Order Date: 04/02/24Order Info: 07 - CMPOrder Info: [id number] - LIPID Performed By: #### L 400.0001, L501.0900 #### [facility] [address] [place], [address] Cholesterol in VLDL [Mass/Vol] 21 mg/dL Normal 5-40 [facility] Comment on above: Order Comment: Order Date: 04/02/24Order Info: 07 - CMPOrder Info: [id number] - LIPID Performed By: #### L 400.0001, L501.0900 #### [facility] [address] [place], [address] Triglyceride [Mass/Vol] 103 mg/dL Normal [facility] Comment on above: Order Comment: Order Date: 04/02/24Order Info: [id number] - CMPOrder Info: [id number] - LIPID Result Comment: The drugs N-Acetylcysteine and Metamizole may falsely depress this assay. Serum Triglycerides Reference Interval Normal <150 mg/dL Borderline high 150 - 199 mg/dL High 200 - 499 mg/dL Very High > or = 500 mg/dL Performed By: #### L 400.0001, L501.0900 #### [facility] [address] [place], [address] Low density lipoprotein (LDL ) cholesterol measurementOrdered By: Piedad Han on 04-02-2024 Cholesterol in LDL [Mass/Vol] 56 mg/dL 0-130 [facility] Lymphocytes Auto (Unsp spec) [#/Vol]Ordered By: Piedad Han on 04-02-2024 Lymphocytes (Bld) [#/Vol] 0.93 10*3/uL 0.83-4.51 [facility] Lymphocytes/100 WBC Auto (Un sp spec)Ordered By: Piedad Han on 04-02-2024 Lymphocytes/100 WBC (Bld) 13.5 % Low 19-41 [facility] MCV (mean corpuscular volume ) determinationOrdered By: Piedad Han on 04-02-2024 MCV (RBC) [Entitic vol] 93.7 fL 80-94 [facility] Mean corpuscular hemoglobin (MCH) determinationOrdered By: Piedad Han on 04-02-2024 MCH (RBC) [Entitic mass] 29.7 pg 27.0-32.0 [facility] Mean corpuscular hemoglobin concentration (MCHC) determinationOrdered By: Piedad Han on 04-02-2024 MCHC (RBC) [Mass/Vol] 31.7 g/dL Low 32-36 [facility] Mean platelet volume determi nationOrdered By: Piedad Han on 04-02-2024 Platelet mean volume (Bld) [Entitic vol] 8.4 fL 6.2-12.0 [facility] Microalb:Creat Ratio,Random URon 04-02-2024 MALB:CRE 3031.8 mg/g CRE High <30 mg/g CRE [facility] Comment on above: Order Comment: Order Date: 04/02/24Order Info: [id number] - MIACREOrder Info: [id number] - MIALB Performed By: #### L 400.0001, L501.0900 #### [facility] [address] [place], [address] MICROALBUMIN,UR 1810.0 mg/L Normal NO RANGE EST. [facility] Comment on above: Order Comment: Order Date: 04/02/24Order Info: [id number] - MIACREOrder Info: [id number] - MIALB Performed By: #### L 400.0001, L501.0900 #### [facility] [address] [place], [place], [id number] Microscopic analysis of urin e for red blood cells (RBC)Ordered By: Piedad Han on 04-02-2024 Microscopic analysis of urine for red blood cells (RBC) 0-5 SEEN /hpf 0-5 [facility] Urine RBC 0-5 SEEN /hpf 0-5 [facility] Monocyte percentageOrdered B y: Piedad Han on 04-02-2024 Monocytes/100 WBC (Bld) 8.4 % 0-10 [facility] Mucus LM Ql (Urine sed)Order ed By: Piedad Han on 04-02-2024 Mucus Ql (Urine sed) 0 SEEN /hpf [facility] Neutrophil percentageOrdered By: Piedad Han on 04-02-2024 Neutrophils/100 WBC (Bld) 71.7 % High 47-70 [facility] Nitrite Test strip Ql (U)Ord ered By: Piedad Han on 04-02-2024 Nitrite Ql (U) Negative Negative [facility] Nucleated red blood cell per centageOrdered By: Piedad Han on 04-02-2024 Nucleated RBC/100 WBC (Bld) [Ratio] 0 % 0-5 [facility] PTHINon 04-02-2024 PTH 91.1 pg/mL High 18.4-80.1 [facility] Comment on above: Order Comment: Urine , Random Performed By: #### L 400.0001, L501.0900 #### [facility] [address] [place], [place], [id number] Platelet countOrdered By: May Han on 04-02-2024 Platelets (Bld) [#/Vol] 210 10*3/uL 150-450 [facility] Potassium measurementOrdered By: Piedad Han on 04-02-2024 Potassium [Moles/Vol] 4.5 mmol/L 3.5-5.1 [facility] Protein Test strip Ql (U)Ord ered By: Piedad Han on 04-02-2024 Protein Ql (U) 500 mg/dl High Negative [facility] Protein+Creatinine Ratio,Uri neon 04-02-2024 PROT:CRE RATIO 3933 mg/g CRE High 0-200 [facility] Comment on above: Order Comment: CLEAN CATCH Performed By: #### L 400.0001 #### [facility] [address] [place], [address] Protein (U) [Mass/Vol] 234.8 mg/dL High <11.9 [facility] Comment on above: Order Comment: CLEAN CATCH Performed By: #### L 400.0001 #### [facility] [address] [place], [address] UR CREAT 59.70 mg/dL Normal NO RANGE EST. [facility] Comment on above: Order Comment: CLEAN CATCH Performed By: #### L 400.0001 #### [facility] [address] [place], [address] Protein/Creatinine (U) [Mass ratio]Ordered By: Piedad Han on 04-02-2024 Urine Protein/Creatinine Ratio 3933 mg/g CRE High 0-200 [facility] RBC Auto (Bld) [#/Vol]Ordere d By: Piedad Han on 04-02-2024 RBC (Bld) [#/Vol] 4.44 10*6/uL Low 4.6-6.2 [facility] Random urine microalbumin me asurementOrdered By: Piedad Han on 04-02-2024 Urine Random Microalbumin 1810.0 mg/L NO RANGE EST. [facility] Random urine protein measure mentOrdered By: Piedad Han on 04-02-2024 Protein (U) [Mass/Vol] 234.8 mg/dL High 0.0-11.8 [facility] Serum anion gap measurementO rdered By: Piedad Han on 04-02-2024 Anion gap [Moles/Vol] 6 mmol/L 5-15 [facility] Serum globulin measurementOr dered By: Piedad Han on 04-02-2024 Globulin (S) [Mass/Vol] 3.7 g/dL 2.2-4.2 [facility] Serum or plasma alanine menezes otransferase (ALT) measurementOrdered By: Piedad Han on 04-02-2024 ALT [Catalytic activity/Vol] 53 U/L 16-61 [facility] Serum or plasma albumin priyanka urement (mass/volume)Ordered By: Piedad Han on 04-02-2024 Albumin [Mass/Vol] 2.7 g/dL Low 3.2-5.0 [facility] Serum or plasma alkaline enio sphatase measurementOrdered By: Piedad Han on 04-02-2024 ALP [Catalytic activity/Vol] 137 U/L High 45-117 [facility] Serum or plasma calcium priyanka urement (mass/volume)Ordered By: Piedad Han on 04-02-2024 Calcium [Mass/Vol] 9.0 mg/dL 8.5-10.1 [facility] Serum or plasma cholesterol measurement (mass/volume)Ordered By: Piedad Han on 04-02-2024 Cholesterol [Mass/Vol] 125 mg/dL <200 [facility] Comment on above: <200 mg/dL Desirable 200-240 mg/dL Borderline >240 mg/dL High Risk Serum or plasma creatinine m easurement (mass/volume)Ordered By: Piedad Han on 04-02-2024 Creatinine [Mass/Vol] 2.58 mg/dL High 0.70-1.30 [facility] Comment on above: The validity of the calculated GFR & GFRAA in patients over 70 years has not been determined. Clinical correlation is essential. Serum or plasma urea nitroge n measurement (mass/volume)Ordered By: Piedad Han on 04-02-2024 Urea nitrogen [Mass/Vol] 49 mg/dL High 7-18 [facility] Sodium levelOrdered By: Piedad Han on 04-02-2024 Sodium [Moles/Vol] 137 mmol/L 136-145 [facility] Squamous epithelial cells de tection in urine sediment by light microscopyOrdered By: Piedad Han on 04-02-2024 Epithelial cells.squamous LM Ql (Urine sed) 0-5 SEEN /hpf 0-5 [facility] Total proteinOrdered By: Zhang Han on 04-02-2024 Protein [Mass/Vol] 6.4 g/dL 6.4-8.2 [facility] Triglycerides measurementOrd ered By: Piedad Han on 04-02-2024 Triglyceride [Mass/Vol] 103 mg/dL <199 [facility] Comment on above: The drugs N-Acetylcy steine and Metamizole may falsely depress this assay.Serum Triglycerides Reference Interval Normal <150 mg/dL Borderline high 150 - 199 mg/dL High 200 - 499 mg/dL Very High > or = 500 mg/dL Urinalysis, Completeon 04-02 EPI,SQUAMOUS 0-5 SEEN Normal 0-5 [facility] Comment on above: Order Comment: CLEAN CATCH Performed By: #### L 400.0001 #### [facility] [address] [place], [address] RBC 0-5 SEEN Normal 0-5 [facility] Comment on above: Order Comment: CLEAN CATCH Performed By: #### L 400.0001 #### [facility] [address] [place], [address] WBC 0-5 SEEN Normal 0-5 [facility] Comment on above: Order Comment: CLEAN CATCH Performed By: #### L 400.0001 #### [facility] [address] [place], [address] BACTERIA 0 SEEN Normal None Seen [facility] Comment on above: Order Comment: CLEAN CATCH Performed By: #### L 400.0001 #### [facility] [address] [place], [address] Mucus Ql (Urine sed) 0 SEEN Normal [facility] Comment on above: Order Comment: CLEAN CATCH Performed By: #### L 400.0001 #### [facility] [address] [place], [address] Urine albumin/creatinine rat io for detection of microalbuminuriaOrdered By: Piedad Han on 04-02-2024 Urine Microalbumin/Creatinine Ratio 3031.8 mg/g CRE High <30 [facility] Urine blood detectionOrdered By: Piedad Han on 04-02-2024 Urine Occult Blood 25 /ul High Negative [facility] Urine clarityOrdered By: Zhang Han on 04-02-2024 Clarity (U) Clear Clear [facility] Urine color determinationOrd ered By: Piedad Han on 04-02-2024 Color (U) Yellow Yellow [facility] Urine creatinine measurement (mass/volume)Ordered By: Piedad Han on 04-02-2024 Creatinine (U) [Mass/Vol] 59.70 mg/dL NO RANGE EST. [facility] Urine glucose detectionOrder ed By: Piedad Han on 04-02-2024 Glucose Ql (U) 1000 mg/dl High Normal [facility] Urine leukocyte esterase det ection by dipstickOrdered By: Piedad Han on 04-02-2024 Leukocyte esterase Test strip Ql (U) Negative Negative [facility] Urine pHOrdered By: Piedad ring on 04-02-2024 pH (U) 6.0 [pH] 5.0 - 8.0 [facility] Urine protein/creatinine mas s ratioOrdered By: Piedad Han on 04-02-2024 Protein/Creatinine (U) [Mass ratio] 3933 mg/g CRE High 0-200 [facility] Urine sediment bacteria coun t by microscopy (number/high power field)Ordered By: Piedad Han on 04-02-2024 Bacteria LM.HPF (Urine sed) [#/Area] 0 /[HPF] None Seen [facility] Urine specific gravity measu rementOrdered By: Piedad Han on 04-02-2024 Specific gravity (U) [Rel density] 1.015 1.002-1.03 0 [facility] Urine urobilinogen measureme ntOrdered By: Piedad Han on 04-02-2024 Urobilinogen Ql (U) Normal mg/dl Normal [facility] Urobilinogen Ql (U)Ordered B y: Piedad Han on 04-02-2024 Urine Urobilinogen Normal mg/dl Normal [facility] Very low density lipoprotein (VLDL) cholesterol measurementOrdered By: Piedad Han on 04-02-2024 Very low density lipoprotein (VLDL) cholesterol measurement 21 mg/dL 5-40 [facility] VLDL Cholesterol 21 mg/dL 5-40 [facility] White blood cell (WBC) count Ordered By: Piedad Han on 04-02-2024 WBC (Bld) [#/Vol] 6.9 10*3/uL 4.4-11.0 [facility] White blood cell countOrdere d By: Piedad Han on 04-02-2024 Urine WBC 0-5 SEEN /hpf 0-5 [facility] White blood cell count 0-5 SEEN /hpf 0-5 [facility] CNOVon 01-03-2024 CNOV Office Visit (CARDMM ) -- GAMALIEL GRIFFIN ([id number]) 1955 M Date Time Provider Department 01/03/24 11:40 AM YESSENIA OCONNOR During your visit today, we recorded the following information about you: Pulse Blood pressure Weight Height 60/minute 126/70 80 kg 1.791 m Yessenia Oconnor DO 01/03/2024 12:21 PM Signed [facility] [place] [facility] Astorga Department of Cardiovascular Medicine SECTION OF REGIONAL CARDIOLOGY/[facility] OUTPATIENT VISIT DATE January 03, 2024 OUTPATIENT VISIT TYPE NEW PATIENT Name: Gamaliel Thakkar Gaby : 1955 Date: January 03, 2024 PRIMARY CARE PHYSICIAN: MD John Menendez [address] [place] [address] REFERRING PHYSICIAN: No referring provider defined for [...] of coronary artery disease requiring CABG at [facility] in January 2023 and presents today [...] to OM2 /[place] Rad[place] [facility] [place] W/COLLJ SPEC WHEN PFRMD [...] sugar onl (more content not included)... 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 ECG Confirmed by YESSENIA OCONNOR DO ([id number]) on 01/04/2024 12:10:51 PM NAME : GAMALIEL GRIFFIN PID : [id number] : 1955 Gender : Male Race : ORD : Procedure Date : Jan 03 2024 11:57:44 Edit Date : Jan 04 2024 12:10:54 Diagnosis: NORMAL SINUS RHYTHM ANTEROSEPTAL MYOCARDIAL INFARCTION , 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 ECG Confirmed by YESSENIA OCONNOR DO ([id number]) on 01/04/2024 12:10:51 PM Test Reason : Location : 211 : [facility] Overread By : YESSENIA OCONNOR DO Edited By : YESSENIA OCONNOR DO Referred By : YESSENIA OCONNOR Acquired by : Naomy CUEVA [facility] CNCOon 12-27-2023 CNCO Letter Text [facility] CNPNon 12-27-2023 CNPN Telephone (TXCTGL) -- GAMALIEL GRIFFIN ([id number]) 1955 M Date Time Provider Department 12/27/23 BERNARDINO HENRIQUEZ TXCTGL During your visit today, we recorded the following information about you: Allergies As of Date: 12/27/2023 Noted Allergy Reaction LISINOPRIL 09/30/2022 7 - Swelling Date Reviewed: 11/08/2023 Reviewed by: Shasta Garsia RN - Fully Assessed Reason for Visit: Referral - Kidney Txp [[id number]] Cmt: Closed-referred too early Prescriptions as of [...] post-op constipation AND stool softening. - Insulin [place], Disposable, (BD ULTRA-FINE KENN PEN NEEDLE) 32 [...] Encounter Status:Closed by BERNARDINO HENRIQUEZ on 12/27/23 [facility] CNCOon 12-26-2023 CNCO Letter Text [facility] CNPNon 12-22-2023 CNPN Telephone (TXCTGL) -- GAMALIEL GRIFFIN ([id number]) 1955 M Date Time Provider Department 12/22/23 [...] 12 months for any organ) Gamaliel Griffin [id number] Spoke with: Patient Best Contact FOR PANCREAS AND KIDNEY/PANCREAS TRANSPLANT AGE 55+ is a HARD STOP If patient is NOT on Dialysis AND has a GFR >21 is a HARD STOP REFERRING COMB WINDER / PHYSICIAN:Dr. Denis Norris Have you ever [...] referral for transplant to your (OOS) Medicaid heel caser? No _ Height: 5.9 Weight: 170 [...] no Hx of Hypertension? Yes Hx of [place]/Heart Attack? Yes, 2013. [facility] Hx of TIA/CVA or Stroke? No Are you on a blood thinner? Yes If YES which medication are you on? Aspirin Have you had a CABG or STENTS? Yes. If yes, date and location: [address] [facility] Have you ever had a Stress Test? Yes. If yes, date and location: 2022 [facility] Have you ever had an Echo? Yes. If yes, date and location: 2022 [facility] Have you ever had a Cardiac Cath? Yes. If yes, date and location: [address] Abdomen/Pelvis: No Mammogram: No Pap Test: No Colonoscopy: Yes. If yes, date and location: [facility] 2023 Hx of Lupus? No Sickle Cell Trait or Disease: No Have you had any prior surgeries? Yes, Quadruple bypass surgery in 2022 Do you have a potential living donor? No [facility] Is the patient signed up for [employer]? Yes If YES - send patient the Kidney/Pancreas New Referral Message. If NO - obtain their email address AND send [employer] [facility] sign up information: email address: Is the patient okay with having a Virtual Appt: Yes What facilities do we need outside records from: N/A Have records been retrieved from Care Everywhere: Yes. Have records been requested from [facility]? No Additional Comments about patient/evaluation: No Route the referral to the Kidney Txp delivery crew member, Bernardino Henriquez. Hoda Julia Allergies As of Date: 12/22/2023 Noted Allergy Reaction LISINOPRIL 09/30/2022 7 - Swelling Date Reviewed: 11/08/2023 Reviewed by: Vargas Garsia (more content not included)... Normal [facility] CBC W/Diff, Automatedon 10- Absolute Lymph 1.05 X10 3/uL Normal 0.83-4.51 [facility] Comment on above: Order Comment: Order Date: 12/05/23 Order Info: [id number] - CBCD Performed By: #### L [id number], L500.4050, L500.4100, L501.5200, L100.0100, L501.9985 #### [facility] [address] [place], [place], [id number] [phone] Absolute Neut 4.9 X10 3/uL Normal 2.0-7.7 [facility] Comment on above: Order Comment: Order Date: 12/05/23 Order Info: [id number] - CBCD Performed By: #### L [id number], L500.4050, L500.4100, L501.5200, L100.0100, L501.9985 #### [facility] [address] [place], [address] Basophils/100 WBC (Bld) 0.7 % Normal 0-1 [facility] Comment on above: Order Comment: Order Date: 12/05/23 Order Info: [id number] - CBCD Performed By: #### L [id number], L500.4050, L500.4100, L501.5200, L100.0100, L501.9985 #### [facility] [address] [place], [address] Eosinophils/100 WBC (Bld) 6.1 % High 0-5 [facility] Comment on above: Order Comment: Order Date: 12/05/23 Order Info: 018- - CBCD Performed By: #### L [id number], L500.4050, L500.4100, L501.5200, L100.0100, L501.9985 #### [facility] [address] [place], [address] Erythrocyte distribution width (RBC) [Ratio] 13.7 % Normal 11.6-14.6 [facility] Comment on above: Order Comment: Order Date: 12/05/23 Order Info: [id number] - CBCD Performed By: #### L [id number], L500.4050, L500.4100, L501.5200, L100.0100, L501.9985 #### [facility] [address] [place], [address] Hematocrit (Bld) [Volume fraction] 40.3 % Normal 40-54 [facility] Comment on above: Order Comment: Order Date: 12/05/23 Order Info: [id number] - CBCD Performed By: #### L [id number], L500.4050, L500.4100, L501.5200, L100.0100, L501.9985 #### [facility] [address] [place], [address] Hemoglobin (Bld) [Mass/Vol] 13.3 g/dL Normal 13.0-16.5 [facility] Comment on above: Order Comment: Order Date: 12/05/23 Order Info: 018- - CBCD Performed By: #### L [id number], L500.4050, L500.4100, L501.5200, L100.0100, L501.9985 #### [facility] [address] [place], [address] IG% 0.300 Normal 0.0-0.9 [facility] Comment on above: Order Comment: Order Date: 12/05/23 Order Info: 018- - CBCD Result Comment: IG% - Immature Granulocytes (promyelocytes, myelocytes and metamyelocytes) > 1% indicates that a LEFT SHIFT is Present. Performed By: #### L [id number], L500.4050, L500.4100, L501.5200, L100.0100, L501.9985 #### [facility] [address] [place], [address] Lymphocytes/100 WBC (Bld) 15.0 % Low 19-41 [facility] Comment on above: Order Comment: Order Date: 12/05/23 Order Info: 0184 - CBCD Performed By: #### L [id number], L500.4050, L500.4100, L501.5200, L100.0100, L501.9985 #### [facility] [address] [place], [address] MCH (RBC) [Entitic mass] 31.0 pg Normal 27.0-32.0 [facility] Comment on above: Order Comment: Order Date: 12/05/23 Order Info: [id number]- - CBCD Performed By: #### L [id number], L500.4050, L500.4100, L501.5200, L100.0100, L501.9985 #### [facility] [address] [place], [address] MCHC (RBC) [Mass/Vol] 33.0 g/dL Normal 32-36 [facility] Comment on above: Order Comment: Order Date: 12/05/23 Order Info: [id number]- - CBCD Performed By: #### L [id number], L500.4050, L500.4100, L501.5200, L100.0100, L501.9985 #### [facility] [address] [place], [address] MCV (RBC) [Entitic vol] 93.9 fL Normal 80-94 [facility] Comment on above: Order Comment: Order Date: 12/05/23 Order Info: 018- - CBCD Performed By: #### L [id number], L500.4050, L500.4100, L501.5200, L100.0100, L501.9985 #### [facility] [address] [place], [address] Monocytes/100 WBC (Bld) 8.4 % Normal 0-10 [facility] Comment on above: Order Comment: Order Date: 12/05/23 Order Info: 01805-14 - CBCD Performed By: #### L 501.9520, L500.4050, L500.4100, L501.5200, L100.0100, L501.9985 #### [facility] [address] [place], [address] Neutrophils/100 WBC (Bld) 69.5 % Normal 47-70 [facility] Comment on above: Order Comment: Order Date: 12/05/23 Order Info: 018- - CBCD Performed By: #### L 501.9520, L500.4050, L500.4100, L501.5200, L100.0100, L501.9985 #### [facility] [address] [place], [address] Nucleated RBC (Bld) [#/Vol] 0 10*3/uL Normal 0-5 [facility] Comment on above: Order Comment: Order Date: 12/05/23 Order Info: 018- - CBCD Performed By: #### L 501.9520, L500.4050, L500.4100, L501.5200, L100.0100, L501.9985 #### [facility] [address] [place], [address] Platelet mean volume (Bld) [Entitic vol] 8.8 fL Normal 6.2-12.0 [facility] Comment on above: Order Comment: Order Date: 12/05/23 Order Info: 0184- - CBCD Performed By: #### L 501.9520, L500.4050, L500.4100, L501.5200, L100.0100, L501.9985 #### [facility] [address] [place], [address] Platelets (Bld) [#/Vol] 206 10*3/uL Normal 150-450 [facility] Comment on above: Order Comment: Order Date: 12/05/23 Order Info: 018- - CBCD Performed By: #### L 501.9520, L500.4050, L500.4100, L501.5200, L100.0100, L501.9985 #### [facility] [address] [place], [address] RBC (Bld) [#/Vol] 4.29 10*6/uL Low 4.6-6.2 [facility] Comment on above: Order Comment: Order Date: 12/05/23 Order Info: 0184- - CBCD Performed By: #### L 501.9520, L500.4050, L500.4100, L501.5200, L100.0100, L501.9985 #### [facility] [address] [place], [address] RDW SD 46.9 fl High 35.1-43.9 [facility] Comment on above: Order Comment: Order Date: 12/05/23 Order Info: 018- - CBCD Performed By: #### L 501.9520, L500.4050, L500.4100, L501.5200, L100.0100, L501.9985 #### [facility] [address] [place], [address] WBC (Bld) [#/Vol] 7.0 10*3/uL Normal 4.4-11.0 [facility] Comment on above: Order Comment: Order Date: 12/05/23 Order Info: 018- - CBCD Performed By: #### L 501.9520, L500.4050, L500.4100, L501.5200, L100.0100, L501.9985 #### [facility] [address] [place], [address] Comprehensive Metabolic Prof ilon 12-05-2023 Albumin [Mass/Vol] 2.9 g/dL Low 3.2-5.0 [facility] Comment on above: Order Comment: Order Date: 12/05/23 Order Info: 01805-14 - CBCD Performed By: #### L 501.9520, L500.4050, L500.4100, L501.5200, L100.0100, L501.9985 #### [facility] [address] [place], [address] Albumin/Globulin [Mass ratio] 0.8 {ratio} Low 0.9-2.4 [facility] Comment on above: Order Comment: Order Date: 12/05/23 Order Info: 018- - CBCD Performed By: #### L 501.9520, L500.4050, L500.4100, L501.5200, L100.0100, L501.9985 #### [facility] [address] [place], [address] ALK P 128 U/L High 45-117 [facility] Comment on above: Order Comment: Order Date: 12/05/23 Order Info: 018- - CBCD Performed By: #### L 501.9520, L500.4050, L500.4100, L501.5200, L100.0100, L501.9985 #### [facility] [address] [place], [address] ALT [Catalytic activity/Vol] 38 U/L Normal 16-61 [facility] Comment on above: Order Comment: Order Date: 12/05/23 Order Info: 0184-1 - CBCD Performed By: #### L 501.9520, L500.4050, L500.4100, L501.5200, L100.0100, L501.9985 #### [facility] [address] [place], [address] AST [Catalytic activity/Vol] 33 U/L Normal 15-37 [facility] Comment on above: Order Comment: Order Date: 12/05/23 Order Info: 0184-1 - CBCD Performed By: #### L 501.9520, L500.4050, L500.4100, L501.5200, L100.0100, L501.9985 #### [facility] [address] [place], [address] Bilirubin [Mass/Vol] 0.30 mg/dL Normal 0.20-1.00 [facility] Comment on above: Order Comment: Order Date: 12/05/23 Order Info: 0184-1 - CBCD Result Comment: For patients on eltrombopag therapy, use of Dimension Mitchell TBIL is not recommended. Performed By: #### L 501.9520, L500.4050, L500.4100, L501.5200, L100.0100, L501.9985 #### [facility] [address] [place], [address] BUN/CRE 18.9 RATIO Normal 10-20 [facility] Comment on above: Order Comment: Order Date: 12/05/23 Order Info: 0184-1 - CBCD Performed By: #### L 501.9520, L500.4050, L500.4100, L501.5200, L100.0100, L501.9985 #### [facility] [address] [place], [address] CA,Total 8.8 mg/dL Normal 8.5-10.1 [facility] Comment on above: Order Comment: Order Date: 12/05/23 Order Info: 0184-1 - CBCD Performed By: #### L 501.9520, L500.4050, L500.4100, L501.5200, L100.0100, L501.9985 #### [facility] [address] [place], [address] Chloride [Moles/Vol] 107 mmol/L Normal 98-107 [facility] Comment on above: Order Comment: Order Date: 12/05/23 Order Info: 0184-1 - CBCD Performed By: #### L 501.9520, L500.4050, L500.4100, L501.5200, L100.0100, L501.9985 #### [facility] [address] [place], [address] CO2 [Moles/Vol] 24.0 mmol/L Normal 21.0-32.0 [facility] Comment on above: Order Comment: Order Date: 12/05/23 Order Info: 0184-1 - CBCD Performed By: #### L 501.9520, L500.4050, L500.4100, L501.5200, L100.0100, L501.9985 #### [facility] [address] [place], [address] Creatinine [Mass/Vol] 2.70 mg/dL High 0.70-1.30 [facility] Comment on above: Order Comment: Order Date: 12/05/23 Order Info: 0184-1 - CBCD Result Comment: The validity of the calculated GFR GFRAA in patients over 70 years has not been determined. Clinical correlation is essential. Performed By: #### L 501.9520, L500.4050, L500.4100, L501.5200, L100.0100, L501.9985 #### [facility] [address] [place], [place], [id number] EST GFR - AA 30 mL/min Low >60 [facility] Comment on above: Order Comment: Order Date: 12/05/23 Order Info: 0184- - CBCD Result Comment: Afri can Scottish GFR Calc Performed By: #### L 501.9520, L500.4050, L500.4100, L501.5200, L100.0100, L501.9985 #### [facility] [address] [place], [place], [address] GAP 7 Normal 5-15 [facility] Comment on above: Order Comment: Order Date: 12/05/23 Order Info: 0184- - CBCD Performed By: #### L 501.9520, L500.4050, L500.4100, L501.5200, L100.0100, L501.9985 #### [facility] [address] [place], [place], [id number] GFR/1.73 sq M.predicted among non-blacks MDRD (S/P/Bld) [Vol rate/Area] 25 mL/min/{1.73_m2} Low >60 [facility] Comment on above: Order Comment: Order Date: 12/05/23 Order Info: 0184- - CBCD Result Comment: Non- GFR Calc Performed By: #### L 501.9520, L500.4050, L500.4100, L501.5200, L100.0100, L501.9985 #### [facility] [address] [place], [place], [id number] Globulin (S) [Mass/Vol] 3.7 g/dL Normal 2.2-4.2 [facility] Comment on above: Order Comment: Order Date: 12/05/23 Order Info: 0184-1 - CBCD Performed By: #### L 501.9520, L500.4050, L500.4100, L501.5200, L100.0100, L501.9985 #### [facility] [address] [place], [address] Glucose [Mass/Vol] 126 mg/dL High 74-106 [facility] Comment on above: Order Comment: Order Date: 12/05/23 Order Info: 0184-1 - CBCD Result Comment: Fast ing Glucose result greater than or equal to 126 mg/dL suggests DIABETES MELLITUS per A.D.A. criteria. Performed By: #### L 501.9520, L500.4050, L500.4100, L501.5200, L100.0100, L501.9985 #### [facility] [address] [place], [address] Potassium [Moles/Vol] 4.6 mmol/L Normal 3.5-5.1 [facility] Comment on above: Order Comment: Order Date: 12/05/23 Order Info: 0184- - CBCD Performed By: #### L 501.9520, L500.4050, L500.4100, L501.5200, L100.0100, L501.9985 #### [facility] [address] [place], [address] Sodium [Moles/Vol] 138 mmol/L Normal 136-145 [facility] Comment on above: Order Comment: Order Date: 12/05/23 Order Info: 0184-1 - CBCD Performed By: #### L 501.9520, L500.4050, L500.4100, L501.5200, L100.0100, L501.9985 #### [facility] [address] [place], [address] T PROT 6.6 g/dL Normal 6.4-8.2 [facility] Comment on above: Order Comment: Order Date: 12/05/23 Order Info: 0184-1 - CBCD Performed By: #### L 501.9520, L500.4050, L500.4100, L501.5200, L100.0100, L501.9985 #### [facility] [address] [place], [address] Urea nitrogen [Mass/Vol] 51 mg/dL High 7-18 [facility] Comment on above: Order Comment: Order Date: 12/05/23 Order Info: 0184-1 - CBCD Performed By: #### L 501.9520, L500.4050, L500.4100, L501.5200, L100.0100, L501.9985 #### [facility] [address] [place], [address] Hemoglobin A1con 12-05-2023 HbA1c (Bld) [Mass fraction] 6.3 % High 3.8-5.6 [facility] Comment on above: Order Comment: Order Date: 12/05/23 Order Info: 018- - CBCD Result Comment: Norm al < 5.7 % Prediabetic 5.7 - 6.4 % Diabetic >or= 6.5 % Please note range changes. Performed By: #### L 501.9520, L500.4050, L500.4100, L501.5200, L100.0100, L501.9985 #### [facility] [address] [place], [address] Lipid Profileon 12-05-2023 Cholesterol [Mass/Vol] 116 mg/dL Normal 200 [facility] Comment on above: Order Comment: Order Date: 12/05/23 Order Info: 0184- - CBCD Result Comment: <200 mg/dL Desirable 200-240 mg/dL Borderline >240 mg/dL High Risk Performed By: #### L 501.9520, L500.4050, L500.4100, L501.5200, L100.0100, L501.9985 #### [facility] [address] [place], [address] Cholesterol in HDL [Mass/Vol] 44 mg/dL Normal [facility] Comment on above: Order Comment: Order Date: 12/05/23 Order Info: 0184-1 - CBCD Result Comment: The drugs N-Acetylcysteine and Metamizole may falsely depress this assay. Reference Range HDL <40 mg/dL Low HDL Cholesterol HDL >or= 60 mg/dL High HDL Cholesterol Performed By: #### L 501.9520, L500.4050, L500.4100, L501.5200, L100.0100, L501.9985 #### [facility] [address] [place], [address] Cholesterol in LDL [Mass/Vol] 42 mg/dL Normal 0-130 [facility] Comment on above: Order Comment: Order Date: 12/05/23 Order Info: 0184-1 - CBCD Performed By: #### L 501.9520, L500.4050, L500.4100, L501.5200, L100.0100, L501.9985 #### [facility] [address] [place], [address] Cholesterol in VLDL [Mass/Vol] 30 mg/dL Normal 5-40 [facility] Comment on above: Order Comment: Order Date: 12/05/23 Order Info: 0184-1 - CBCD Performed By: #### L 501.9520, L500.4050, L500.4100, L501.5200, L100.0100, L501.9985 #### [facility] [address] [place], [address] Triglyceride [Mass/Vol] 150 mg/dL Normal [facility] Comment on above: Order Comment: Order Date: 12/05/23 Order Info: 0184-1 - CBCD Result Comment: The drugs N-Acetylcysteine and Metamizole may falsely depress this assay. Serum Triglycerides Reference Interval Normal <150 mg/dL Borderline high 150 - 199 mg/dL High 200 - 499 mg/dL Very High > or = 500 mg/dL Performed By: #### L 501.9520, L500.4050, L500.4100, L501.5200, L100.0100, L501.9985 #### [facility] [address] [place], [address] Magnesiumon 12-05-2023 Magnesium [Mass/Vol] 2.5 mg/dL Normal 1.6-2.6 [facility] Comment on above: Order Comment: Order Date: 12/05/23 Order Info: 0184-1 - CBCD Performed By: #### L 501.9520, L500.4050, L500.4100, L501.5200, L100.0100, L501.9985 #### [facility] [address] [place], [address] PTHINon 12-05-2023 PTH 117.0 pg/mL High 18.4-80.1 [facility] Comment on above: Order Comment: Order Date: 12/05/23 Order Info: 0184-1 - CBCD Performed By: #### L 501.9520, L500.4050, L500.4100, L501.5200, L100.0100, L501.9985 #### [facility] [address] [place], [address] Protein+Creatinine Ratio,Uri neon 12-05-2023 PROT:CRE RATIO 3825 mg/g CRE High 0-200 [facility] Comment on above: Performed By: #### L 400.0001, L501.0900 #### [facility] [address] [place], [address] Protein (U) [Mass/Vol] 181.7 mg/dL High <11.9 [facility] Comment on above: Performed By: #### L 400.0001, L501.0900 #### [facility] [address] [place], [address] UR CREAT 47.50 mg/dL Normal NO RANGE EST. [facility] Comment on above: Performed By: #### L 400.0001, L501.0900 #### [facility] [address] [place], [address] Thyroid Stim Hormone (TSH)on 12-05-2023 TSH 0.285 uIU/mL Low 0.358-3.74 0 [facility] Comment on above: Order Comment: Order Date: 12/05/23 Order Info: 0184-1 - CBCD Performed By: #### L 501.9520, L500.4050, L500.4100, L501.5200, L100.0100, L501.9985 #### [facility] [address] [place], [address] Urinalysis, Completeon 12-04 RBC 0-5 SEEN Normal 0-5 [facility] Comment on above: Order Comment: Urine , Random Performed By: #### L 400.0001, L501.0900 #### [facility] [address] [place], [address] BACTERIA 0 SEEN Normal None Seen [facility] Comment on above: Order Comment: Urine , Random Performed By: #### L 400.0001, L501.0900 #### [facility] [address] [place], [address] EPI,SQUAMOUS 0 SEEN Normal 0-5 [facility] Comment on above: Order Comment: Urine , Random Performed By: #### L 400.0001, L501.0900 #### [facility] [address] [place], [address] Mucus Ql (Urine sed) 0 SEEN Normal [facility] Comment on above: Order Comment: Urine , Random Performed By: #### L 400.0001, L501.0900 #### [facility] [address] [place], [address] WBC 0 SEEN Normal 0-5 [facility] Comment on above: Order Comment: Urine , Random Performed By: #### L 400.0001, L501.0900 #### [facility] [address] [place], [address] Vitamin D,25 Hydroxyon 12-04 Vitamin D 25-OH 22.6 ng/mL Normal [facility] Comment on above: Order Comment: Order Date: 12/05/23 Order Info: 0184-1 - CBCD Result Comment: Marlee min D 25(OH) Status Range Deficiency <20 ng/mL (50nmol/L) Insufficiency 20 - 30 ng/mL (50 - 75 nmol/L) Sufficiency 30 - 100 ng/mL (75 - 250 nmol/L) Toxicity >100 ng/mL (>250 nmol/L) Performed By: #### L 501.9520, L500.4050, L500.4100, L501.5200, L100.0100, L501.9985 #### [facility] [address] [place], [place], [address] CNOVon 11-08-2023 CNOV Office Visit (ENWSTR ) -- GAMALIEL GRIFFIN ([id number]) 1955 M Date Time Provider Department 11/08/23 9:45 AM MONICA HOYT ENWSTR During your visit today, we recorded the following information about you: Pulse Respiration Weight Height 57/minute 20/minute 80.4 kg 1.753 m Monica Hoyt, [employer] 11/08/2023 10:01 AM Signed OFFICE VISIT PROGRESS [...] count Yes - saw DM nurse at OR 40 grams per meal - DIETARY HISTORY: Breakfast: cereal OR toast or bagel with water or tea and carnation breakfast daily with fruit (apple, oranges, grapes) Lunch fruit (apple or orange) and sandwich deli Dinner cooks, balanced protein/starch/vegetable OR soup rarely eat out or take out Snacks not really, rarely, if does may have saltine crackers OR pretzels Drinks water, tea Exercise: [employer] total gym program (3-4 times per week) [...] -- 26* (more content not included)... Normal [facility] SURGICAL PATHOLOGYOrdered By : Ishmael aPtel on 10-25-2023 Case Report Surgical Pathology R eport Case: [id number] Authorizing Provider: Carolee Mack MD Collected: 10/24/2023 07:58 AM Ordering Location: Ambulatory Surgery Received: 10/24/2023 01:23 PM Pathologist: Ishmael Patel MD Specimen: Colon, Transverse, [facility] Work Phone: FINAL DIAGNOSIS q2xblGOlQTDfvKWgBZxo Mlxhbn BzNPBroQWwO1YeoxueFQefAJ8s ZJ9auAhrgDNuaLLpRGLzEnPfn1 syc722xLWsp9vlYFWKpxqtsYm5 bYnxP65ta2K2BatkT65boCQnOK F9BLKvZXEkrSDmCXLqRPM4BPPb aSQzY7jjZXTvPY9kbrvsGHdtJU sdWYSgzYS8BNAlcFGoM2XcDRIs IDfgKNOgpgk0UyFwWe5qmEFwvJ cyMFxwYXJkXHBsYWluXGZzMjAg PJIzvzU8MCEuYBNvm2vpsmMoh3 u7ePlcArfdpFV4DhrryN9qSC2s HHJyqWscavShGJPfc62fArgkNX RzcOBkEYxHPST3DeXbQkTvTdMb cGFyfQ== [facility] Work Phone: Gross Description y2lbxINwFJWkqKOPBJE7 MDFcYW 6lrPiolZf7mQqaPKHkarM1kBDi WWfsu8qpYBO4s0wwlyRLZdizIX LfVZ0mVPqgCBJmXE8wJcAoTIVp ZmYxXHBhcGVydzEyMjQwXHBhcG LeaFZ0UAPaET3ikdgfUJklOAfq YUEqkeO2DTVywYNaV6UjJXErPQ 6tqtoyULJ6UUKJSlojMy7icPDa bHtcZjFcZmNoYXJzZXQwXGZzd2 cdcbIGcosurFn1dW1SSZGiC0Xy LO7Qj3kcLDHpdBNsVLO1UPwsr4 kqLLflPAY6WCUpIJPaXTJaED8U OyXgLYjsKzI3Ydh2DfP7JUv6QZ FONBNzWTG1ZaU4UOMbIYp3RYou XFxuaCBcXHQgMSBcXGZsIFxcbm P1g9elXDQgnYBmOZF4XGyfv5lc LPybZNC8FSXfSdPzHBQpTE9ISg GnWBbrHfS4Itv1JfQ8ZYu6CQUJ ArFaAbUtWSmzKHgbNIIiGYq4VH w6AVuBDcYyStwvOiRsLnb7VgE0 NDQzOCBcXHQgMiBcXHNzIDMgXF nmnXMeCC6vuGesSXTiCK2RGBQz FSmzCHTsMlOcYZ9yG88cy28aBW FkAO9vncOfd3QdEEIcmQqhUOg8 ojYrDSXhzdRJRtdnKQOcFL0SAK DgMPkwJAg3ioHaWPNkYcZeUTLd U82dd3YSg9QrQW3ZYTx3onCayi FSLidxsfPdDKXyJ7EsycPePPqh QSRrkd4qvMtsQIZwMYOncLu6lE PuOCRyuFPiSLYmf6WcmJWbEDQc p5T0IDJda7N4HZFhB1atVFzeeB giPlV7dvTsThIcvNGvBhUopXXf OmNnZ20aKYLvjKHysVcnx4MitI u4kRMxFLtpRL7qITIxEJHcBFW2 KC1kKWNoviHZLbyhLEUcIOsTrr 1zkqZkiDGrqO3ooSsfmuBfXAMm r6MhRJBsCYSeP3bauwOnSG1hHC NsmS3wWataCTFbEHBZlUVwwYIc XXYfByuzP6cfjvAvCC3pAIEVQB G0HAI9GNvbSPCdAFquzAUgSL1H KGDbYzYnCABfH7gqEXZlZB6EMj JDGTC4LyJxHgIbSzXpMQD8DHgl CY7NBkjauHnzGwXufBJrQuW3EN RxwCNlNFD8AD4uoUcrCFOxA5By O9YbfdS2RTOpxwPVDbrqFIGmQO 8FQYCrAaWdODi0 [facility] Work Phone: Performing Lab k0zetPUwPSOldMPiBqAv MDAwXG Sjc3ynSNZbsCHwBzNxMhVhThLk SrvxzGTgVZStCfFch8vpo603tO Iah2xnPVShJfW0nTUaBOKpdHMu B042CZEeKCqbr6xzj9YeQWTegG Quw6E8KRTGrmzyfQw7iYiuD99u n7S4IqzyE7gcQYSgADFwM2LvRI 2xXOIsOaj5PZB3EJT0EYGmGFEk D8UxAX1yYKAbaUCiGNz6j5kecJ pxHZDtWCR1r7zgHMnwxlRnEB6t bn2xiMv9a6uvvzJlLJAaUPIxfJ OMNLUvX1EorFemCr2obTw5aPox YcqtDZH3Gnf9FK5kdz55gri5pB spFHTbyxuoHuS1AZldTXDctlwm BSb9KGeuISZaxGO4EGCztZCsU4 ZgWGWgVF8lrdd0CEF4OWtpZXAb UsK7YABmiNZfBYJlgUbjMQvrc4 30PWD5IgZoKI4qO6Ixi0C1wQ8y cJZdYKWrgXSaLbVfXYZdit2llG FsXNeqf6WuBYH9jwF2nPZcyDJh NAZmIO50Qmtpl9SqOssgb3VeR3 6qmJH6GYejq4dtJX2jLeG1uyWt RMplc1lmlL1vEsR4KXztKW5qDG 3jSPGavK9ewsotPMXgJeBbjcnc PKXddMzwbhYkRe8wcErjSOU3MU chG8tdiZ9dKtP0DZvxH3rrpR9p ZFa9DGmemPR6QPLelT4aIZ8bxm pjm2abZEnsYPzlKDYquaR4roC0 OXEkgNGdQ7OcqI9pLJJnNT4jen viw5mePEU1YKpdGLGxQON9FuXj NWLjx7Llzyw8OxNow0DaeXMmVZ ksK41xj423ILHsfcOuR8gvaNVv nuahvHXjxcdsYRhfrkX8XSNhBS BsYWluXGYxXGZzMjJcbGFuZzEw MzNcaGljaFxmMVxkYmNoXGYxXG doB3ofLmEsNxDuPfOPiYIlpc9q nAsgUQdhjYDkiXYloSF9pM8pFW UkglCvwx7mKWDqkLSLbHF9LEdc toGxP8gkqwzaDOUagME4aPU1JB nqd7OfxVNfYLCcMYCpKKWNl3Ym eB6xNXTnQLRIxEK9AIrfmdZbDZ 8PHOJ6RIGhPCIwJZRXIHEfDVI0 ZOC7MOw6NBjtrAQmCMXvsskaAE JkXHBsYWluXGYwXGZzMjRccGxh oK6tLwYxVrQfHnadSZ7gXHLzF1 euiSDmWGPdCGIaB6yoPkQhtL1q aFxmMVxjZjJcZnMyMlxsdHJjaC JEMLWyltC0p8G0EGvdqAMkwygc MVxmczIyXGxhbmcxMDMzXGhpY2 ifKsCjZLZniPulZMmyu7TnGJFx YOPkBxEuOJoyVHQ6e4Z4ZG1hsl coDf2kFUBwTNIlG93fHYNZXwYo XHBhcn0= [facility] Work Phone: [facility] Work Phone: [phone] 10-24-2023 [id number] HNO ID: [id number] Author: KARISSA ARANA RN Service: ? Author Type: Registered Nurse Type: [id number] Filed: 10/24/2023 08:21 Note Text: The patient received a copy of Colonoscopy discharge instructions that contain information for how to contact the physician who performed the procedure and when to seek medical care. Normal [facility] Patient Name: Gamaliel Griffin [...] previous diet. Procedure Code(s): --- Professional --- 96742, Colonoscopy, flexible; with removal of tumor(s), polyp(s), or other lesion(s) by snare technique 90667, 59, Moderate sedation services provided by the same physician or other qualified health critical care physician assistant performing the diagnostic or therapeutic service that the sedation supports, requiring the presence of an independent trained observer to assist in the monitoring of the patient's level of consciousness and physiological status; initial 15 (more content not included)... Normal [facility] Colonoscopy Study observatio non 10-24-2023 [facility] Gastrointestinal Endoscopy Patient Name: Gamaliel Griffin [...] hot sna (more content not included)... [employer] [facility] Radiology Study observation (narrative) [facility] HISTORY PHYSICALon HISTORY PHYSICAL HNO ID: [id number] Author: CAROLEE MACK MD Service: General Surgery [...] to OM2 /[place] [facility] [place] W/COLLJ SPEC WHEN PFRMD [...] (3 mL) Taking 20 units in the [facility] Blood-Glucose Sensor (FREESTYLE YAZMIN 3 SENSOR) kathleen [...] units. 351- 400 = 10 units. Insulin [place], Disposable, (BD ULTRA-FINE KENN PEN NEEDLE) 32 [...] 63, temperatur (more content not included)... [facility] NURSING PROGon 10-24-2023 NURSING PROG HNO ID: [id number] Author: KARISSA ARANA RN Service: ? Author Type: Registered Nurse Type: Nursing Progress Note Filed: 10/24/2023 08:56 Note Text: Patient has Libre3 glucose monitoring device, Dr Mack aware and says it is acceptable to have post procedure glucose checked with his device. Glucose is 123 at this time. [facility] NURSING PROG HNO ID: [id number] Author: KARISSA ARANA RN Service: ? Author Type: Registered Nurse Type: Nursing Progress Note Filed: 10/24/2023 08:21 Note Text: Patient received in phase II via cart in left lateral position, eyes closed but open to verbal stimuli, skin warm and dry, respirations regular and unlabored, abdomen soft and non distended. Denies pain, nausea, or cramping. Resting comfortably on left side. [facility] SURGICAL PATHOLOGYon 024 CASE REPORT [facility] Comment on above: Order Comment: Speci men Type: BLOOD SPECIMEN Ordering Facility: [facility] Address: [address] [place] [address] Result Comment: Surg ica Pathology Report Case: [id number] Authorizing Provider: Carolee Mack MD Collected: 10/24/2023 07:58 AM Ordering Location: Ambulatory Surgery Received: 10/24/2023 01:23 PM Pathologist: Ishmael Patel MD Specimen: Colon, Transverse, Polyp Performed By: #### L IPNF #### [facility] CLIA [id number] [address] [place] [address] [place] FINAL DIAGNOSIS [facility] Comment on above: Order Comment: Speci men Type: BLOOD SPECIMEN Ordering Facility: [facility] Address: [address] [place] [address] Result Comment: Gutierrez basil colon polyp, biopsy: - Tubular adenoma. JEL 10/25/2023 Performed By: #### L IPNF #### [facility] CLIA [id number] [address] [place] [address] [place] FINAL PERFORMING LAB Normal [facility] Comment on above: Order Comment: Speci men Type: BLOOD SPECIMEN Ordering Facility: [facility] Address: [address] [place] [address] Result Comment: Diag nostic interpretation performed at [facility], [address] [place] [address] CLIA# [id number] Workshop Manager: Isaiah Calderon M.D. Performed By: #### L IPNF #### [facility] CLIA [id number] [address] [place], [place] [address] [place] GROSS DESCRIPTION Normal [facility] Comment on above: Order Comment: Speci men Type: BLOOD SPECIMEN Ordering Facility: [facility] Address: [address] [place] [address] Result Comment: Sherin waller, Transverse, Polyp Received in formalin are multiple pieces of dasilva, soft tissue aggregating to 1.3 x 0.3 x 0.2 cm. Totally submitted in one cassette. Gross examination performed at [facility], [address] [place] [address] FFS 10/24/2023 11:09 PM Performed By: #### L IPNF #### [facility] CLIA [id number] [address] [place] [address] [place] ALBUMIN/CREATININE RATIO, UR INEon 10-17-2023 Albumin DL <= 20 mg/L (U) [Mass/Vol] 536.5 mg/L Normal [facility] Comment on above: Order Comment: Speci sanjay Type: BLOOD SPECIMEN Ordering Facility: [facility] Address: [address] [place] [address] Performed By: #### L IPNF #### [facility] CLIA [id number] [address] [place] [address] [place] Albumin/Creatinine (U) [Mass ratio] 1671 mg/g High <30 [facility] Comment on above: Order Comment: Speci men Type: BLOOD SPECIMEN Ordering Facility: [facility] Address: [address] [place] [address] Result Comment: Not calculated Adult Male and Female Nephrotic Criteria: <30 mg/g is considered normal to mildly increased 30-300 mg/g is considered moderately increased >300 mg/g is considered severely increased KDIGO. (2013). KDIGO 2012 Clinical Practice Guideline for the Evaluation and Management of Chronic Kidney Disease. Official Journal of the International Society of Nephrology, 3(1), 1-150. Performed By: #### L IPNF #### [facility] CLIA [id number] [address] [place] [address] [place] Creatinine (U) [Mass/Vol] 32.1 mg/dL Normal 20.0-300.0 [facility] Comment on above: Order Comment: Speci men Type: BLOOD SPECIMEN Ordering Facility: [facility] Address: [address] [place], [place] [id number] Performed By: #### L IPNF #### [facility] CLIA [id number] [address] [place], [place] [address] [place] [facility] Comprehensive metabolic 2000 panelon 10-17-2023 Albumin [Mass/Vol] 3.5 g/dL Low 3.9-4.9 [facility] Comment on above: Order Comment: Speci men Type: BLOOD SPECIMEN Ordering Facility: [facility] Address: [address] [place] [address] Performed By: #### L IPNF #### [facility] CLIA [id number] [address] [place] [address] [place] ALP [Catalytic activity/Vol] 116 U/L High 38-113 [facility] Comment on above: Order Comment: Speci men Type: BLOOD SPECIMEN Ordering Facility: [facility] Address: [address] [place] [address] Performed By: #### L IPNF #### [facility] CLIA [id number] [address] [place] [address] [place] ALT [Catalytic activity/Vol] 14 U/L Normal 10-54 [facility] Comment on above: Order Comment: Speci men Type: BLOOD SPECIMEN Ordering Facility: [facility] Address: [address] [place] [address] Performed By: #### L IPNF #### [facility] CLIA [id number] [address] [place], [place] [address] [place] Anion gap [Moles/Vol] 12 mmol/L Normal 8-15 [facility] Comment on above: Order Comment: Speci men Type: BLOOD SPECIMEN Ordering Facility: [facility] Address: [address] [place], [place] [id number] Performed By: #### L IPNF #### [facility] CLIA [id number] [address] [place], [place] [address] [place] AST [Catalytic activity/Vol] 21 U/L Normal 14-40 [facility] Comment on above: Order Comment: Speci men Type: BLOOD SPECIMEN Ordering Facility: [facility] Address: [address] [place], [place] [id number] Performed By: #### L IPNF #### [facility] CLIA [id number] [address] [place] [address] [place] Bilirubin [Mass/Vol] 0.2 mg/dL Normal 0.2-1.3 [facility] Comment on above: Order Comment: Speci men Type: BLOOD SPECIMEN Ordering Facility: [facility] Address: [address] [place] [address] Performed By: #### L IPNF #### [facility] CLIA [id number] [address] [place] [address] [place] Calcium [Mass/Vol] 8.9 mg/dL Normal 8.5-10.2 [facility] Comment on above: Order Comment: Speci men Type: BLOOD SPECIMEN Ordering Facility: [facility] Address: [address] [place], [place] [id number] Performed By: #### L IPNF #### [facility] CLIA [id number] [address] [place], [place] [address] [place] Chloride [Moles/Vol] 101 mmol/L Normal 98-107 [facility] Comment on above: Order Comment: Speci men Type: BLOOD SPECIMEN Ordering Facility: [facility] Address: [address] [place] [address] Performed By: #### L IPNF #### [facility] CLIA [id number] [address] [place], [place] [address] [place] CO2 [Moles/Vol] 22 mmol/L Normal 22-30 [facility] Comment on above: Order Comment: Speci men Type: BLOOD SPECIMEN Ordering Facility: [facility] Address: [address] [place] [address] Performed By: #### L IPNF #### [facility] CLIA [id number] [address] [place] [address] [place] Creatinine [Mass/Vol] 2.60 mg/dL High 0.73-1.22 [facility] Comment on above: Order Comment: Nasir men Type: BLOOD SPECIMEN Ordering Facility: [facility] Address: [address] [place] [address] Performed By: #### L IPNF #### [facility] CLIA [id number] [address] [place] [address] [place] Creatinine and Glomerular filtration rate.predicted panel (S/P/Bld) 26 mL/min/1.73m??? Low >=60 [facility] Comment on above: Order Comment: Nasir grace Type: BLOOD SPECIMEN Ordering Facility: [facility] Address: [address] [place] [address] Result Comment: Soraya mated Glomerular Filtration Rate [...] GFR. Performed By: #### L IPNF #### [facility] CLIA [id number] [address] [place] [address] [place] Glucose [Mass/Vol] 187 mg/dL High 74-99 [facility] Comment on above: Order Comment: Nasir grace Type: BLOOD SPECIMEN Ordering Facility: [facility] Address: [address] [place] [address] Result Comment: The [place] Diabetes Association (ADA) provides guidance for cutoff [...] Standards of Medical Care in Diabetes 2016, [place] Diabetes Association. Diabetes Care. 2016.39(Suppl 1). Performed By: #### L IPNF #### [facility] CLIA [id number] [address] [place] [address] [place] Potassium [Moles/Vol] 4.4 mmol/L Normal 3.7-5.1 [facility] Comment on above: Order Comment: Speci men Type: BLOOD SPECIMEN Ordering Facility: [facility] Address: [address] [place] [address] Performed By: #### L IPNF #### [facility] CLIA [id number] [address] [place] [address] [place] Protein [Mass/Vol] 6.4 g/dL Normal 6.3-8.0 [facility] Comment on above: Order Comment: Speci men Type: BLOOD SPECIMEN Ordering Facility: [facility] Address: [address] [place] [address] Performed By: #### L IPNF #### [facility] CLIA [id number] [address] [place] [address] [place] Sodium [Moles/Vol] 135 mmol/L Low 136-144 [facility] Comment on above: Order Comment: Speci men Type: BLOOD SPECIMEN Ordering Facility: [facility] Address: [address] [place] [address] Performed By: #### L IPNF #### [facility] CLIA [id number] [address] [place] [address] [place] Urea nitrogen [Mass/Vol] 48 mg/dL High 9-24 [facility] Comment on above: Order Comment: Speci men Type: BLOOD SPECIMEN Ordering Facility: [facility] Address: [address] [place] [address] Performed By: #### L IPNF #### [facility] CLIA [id number] [address] [place] [address] [place] HbA1c (Bld)on 10-17-2023 Average glucose Estimated from glycated hemoglobin (Bld) [Mass/Vol] 148 mg/dL Normal [facility] Comment on above: Order Comment: Nasir grace Type: BLOOD SPECIMEN Ordering Facility: [facility] Address: [address] [place] [address] Result Comment: eAG: (Estimated average glucose) is a calculated value from HgbA1c and is delivery representative of the average blood glucose level in the last 2-3 month period. Performed By: #### L IPNF #### [facility] CLIA [id number] [address] [place] [address] [place] HbA1c (Bld) [Mass fraction] 6.8 % High 4.3-5.6 [facility] Comment on above: Order Comment: Nasir [facility] Type: BLOOD SPECIMEN Ordering Facility: [facility] Address: [address] [place] [address] Result Comment: [place] Diabetes Association guidelines indicate that patients with HgbA1c in the range 5.7-6.4% are at increased risk for development of diabetes, and intervention by lifestyle modification may be beneficial. HgbA1c greater or equal to 6.5% is considered diagnostic of diabetes. Performed By: #### L IPNF #### [facility] CLIA [id number] [address] [place] [address] [place] LIPID PANEL, NONFASTINGon Cholesterol [Mass/Vol] 138 mg/dL Normal <200 [facility] Comment on above: Order Comment: Nasir sanjay Type: BLOOD SPECIMEN Ordering Facility: [facility] Address: [address] [place] [address] Result Comment: <200 mg/dL, Desirable 200-239 mg/dL, Borderline high >239 mg/dL, High Performed By: #### L IPNF #### [facility] CLIA [id number] [address] [place] [address] [facility] [place] HDL CHOLESTEROL, NF 40 mg/dL Normal >39 [facility] Comment on above: Order Comment: Nasir grace Type: BLOOD SPECIMEN Ordering Facility: [facility] Address: [address] [place] [address] Result Comment: 40-5 9 mg/dL, Acceptable >59 mg/dL, High: Negative risk factor for coronary heart disease <40 mg/dL, Low: Positive risk factor for coronary heart disease Performed By: #### L IPNF #### [facility] CLIA [id number] [address] [place] [address] OF [facility] LDL CHOLESTEROL, NF 55 mg/dL Normal <100 [facility] Comment on above: Order Comment: Nasir grace Type: BLOOD SPECIMEN Ordering Facility: [facility] Address: [address] [place] [address] Result Comment: <100 mg/dL, Optimal 100-129 mg/dL, Near optimal/above optimal 130-159 mg/dL, Borderline high 160-189 mg/dL, High >189 mg/dL, Very high Secondary prevention optimal LDL Cholesterol levels are recommended to be < 70 mg/dL Performed By: #### L IPNF #### [facility] CLIA [id number] [address] [place] [address] [place] LDL/HDL RATIO, NF 1.38 mg/dL Normal <2.54 [facility] Comment on above: Order Comment: Nasir grace Type: BLOOD SPECIMEN Ordering Facility: [facility] Address: [address] [place] [address] Result Comment: Fatoumata luciano: 1. National Cholesterol Education Program ATP III Guideline At-A-Glance Quick Desk Reference: National Heart, Lung, and Blood [place]. National Institutes of Health. 2001: NIH Publication No. 01-3305. 2. An International Atherosclerosis Society position paper: global recommendations for the management of dyslipidemia: executive summary, Atherosclerosis. 2014: 232(2):410-413. Performed By: #### L IPNF #### [facility] CLIA [id number] [address] [place] [address] [place] NON HDL CHOL, NF 98 mg/dL Normal <130 [facility] Comment on above: Order Comment: Speci men Type: BLOOD SPECIMEN Ordering Facility: [facility] Address: [address] [place] [address] Result Comment: <130 mg/dL, Optimal 130-159 mg/dL, Near optimal/above optimal 160-189 mg/dL, Borderline high 190-219 mg/dL, High >219 mg/dL, Very high Secondary prevention optimal non HDL Cholesterol levels are recommended to be <100 mg/dL Performed By: #### L IPNF #### [facility] CLIA [id number] [address] [place] [address] [place] T CHOL/HDL RATIO NF 3.45 mg/dL Normal <5.10 [facility] Comment on above: Order Comment: Speci men Type: BLOOD SPECIMEN Ordering Facility: [facility] Address: [address] [place] [address] Performed By: #### L IPNF #### [facility] CLIA [id number] [address] [place] [address] [place] TRIGLYCERIDES, NF 215 mg/dL High <150 [facility] Comment on above: Order Comment: Speci men Type: BLOOD SPECIMEN Ordering Facility: [facility] Address: [address] [place] [address] Result Comment: <150 mg/dL, Normal 150-199 mg/dL, Borderline high 200-499 mg/dL, High >499 mg/dL, Very high Performed By: #### L IPNF #### [facility] CLIA [id number] [address] [place] [address] [place] VLDL CHOLESTEROL, NF 43 mg/dL High <30 [facility] Comment on above: Order Comment: Speci men Type: BLOOD SPECIMEN Ordering Facility: [facility] Address: [address] [place] [address] Performed By: #### L IPNF #### [facility] CLIA [id number] [address] [facility] [place] [address] [place] Basophil percentageOrdered B y: Myrna Barrios on 06-01-2023 Basophil percentage 4.5 mg/dL 2.5-4.9 [facility] Chloride [Moles/Vol] 107 mmol/L 98-107 [facility] Glucose [Mass/Vol] 137 mg/dL 74-106 [facility] Comment on above: Fasting Glucose resu lt greater than or equal to 126 mg/dL suggests DIABETES MELLITUS per A.D.A. criteria. Potassium [Moles/Vol] 4.7 mmol/L 3.5-5.1 [facility] Sodium [Moles/Vol] 138 mmol/L 136-145 [facility] - Chemistry and C hemistry - challengeOrdered By: Myrna Barrios on 06-01-2023 CO2 [Moles/Vol] 26.0 mmol/L 21.0-32.0 [facility] Urea nitrogen/Creatinine [Mass ratio] 20.2 mg/mg 10-20 [facility] No Panel InformationOrdered By: Myrna Barrios on 06-01-2023 Estimated GFR (MDRD) Amer 33 mL/min >60 [facility] Comment on above: GFR Calc Estimated GFR (MDRD) Non-Af Amer 27 mL/min >60 [facility] Comment on above: Non- GFR Calc Serum or plasma calcium priyanka urement (mass/volume)Ordered By: Myrna Barrios on 06-01-2023 Calcium [Mass/Vol] 8.8 mg/dL 8.5-10.1 [facility] Serum or plasma creatinine m easurement (mass/volume)Ordered By: Myrna Barrios on 06-01-2023 Creatinine [Mass/Vol] 2.52 mg/dL 0.70-1.30 [facility] Comment on above: The validity of the calculated GFR & GFRAA in patients over 70 years has not been determined. Clinical correlation is essential. Serum or plasma urea nitroge n measurement (mass/volume)Ordered By: Myrna Barrios on 06-01-2023 Urea nitrogen [Mass/Vol] 51 mg/dL 7-18 [facility] Thin prep Papanicolaou smear with manual screeningOrdered By: Myrna Barrios on 06-01-2023 Thin prep Papanicolaou smear with manual screening 3.0 g/dL 3.2-5.0 [facility] HbA1c (Bld)on 05-10-2023 Average glucose Estimated from glycated hemoglobin (Bld) [Mass/Vol] 148 mg/dL [facility] HbA1c (Bld) [Mass fraction] 6.8 % High 4.3 - 5.6 % [facility] VITAMIN D 25 HYDROXYon 05-09 25-hydroxyvitamin D3 [Mass/Vol] 20.8 ng/mL Low 31.0 - 80.0 ng/mL [facility] Basophil percentageOrdered B y: Myrna Barrios on 04-21-2023 Basophil percentage 4.5 mg/dL 2.5-4.9 [facility] Chloride [Moles/Vol] 105 mmol/L 98-107 [facility] Glucose [Mass/Vol] 144 mg/dL 74-106 [facility] Comment on above: Fasting Glucose resu lt greater than or equal to 126 mg/dL suggests DIABETES MELLITUS per A.D.A. criteria. Potassium [Moles/Vol] 4.5 mmol/L 3.5-5.1 [facility] Sodium [Moles/Vol] 139 mmol/L 136-145 [facility] - Chemistry and C hemistry - challengeOrdered By: Myrna Barrios on 04-21-2023 CO2 [Moles/Vol] 27.0 mmol/L 21.0-32.0 [facility] Urea nitrogen/Creatinine [Mass ratio] 17.1 mg/mg 10-20 [facility] No Panel InformationOrdered By: Myrna Barrios on 04-21-2023 Estimated GFR (MDRD) Amer 34 mL/min >60 [facility] Comment on above: GFR Calc Estimated GFR (MDRD) Non-Af Amer 28 mL/min >60 [facility] Comment on above: Non- GFR Calc Serum or plasma calcium priyanka urement (mass/volume)Ordered By: Myrna Barrios on 04-21-2023 Calcium [Mass/Vol] 8.9 mg/dL 8.5-10.1 [facility] Serum or plasma creatinine m easurement (mass/volume)Ordered By: Myrna Barrios on 04-21-2023 Creatinine [Mass/Vol] 2.46 mg/dL 0.70-1.30 [facility] Comment on above: The validity of the calculated GFR & GFRAA in patients over 70 years has not been determined. Clinical correlation is essential. Serum or plasma urea nitroge n measurement (mass/volume)Ordered By: Myrna Barrios on 04-21-2023 Urea nitrogen [Mass/Vol] 42 mg/dL 7-18 [facility] Thin prep Papanicolaou smear with manual screeningOrdered By: Myrna Barrios on 04-21-2023 Protein (U) [Mass/Vol] 210.0 mg/dL 0.0-11.8 [facility] Thin prep Papanicolaou smear with manual screening 3.0 g/dL 3.2-5.0 [facility] Urine creatinine measurement (mass/volume)Ordered By: Myrna Barrios on 04-21-2023 Creatinine (U) [Mass/Vol] 58.90 mg/dL NO RANGE EST. [facility] Urine protein/creatinine mas s ratioOrdered By: Myrna Barrios on 04-21-2023 Protein/Creatinine (U) [Mass ratio] 3565 mg/g CRE 0-200 [facility] Basophil percentageOrdered B y: Myrna Barrios on 03-31-2023 Basophil percentage 3.0 mg/dL 2.5-4.9 [facility] Chloride [Moles/Vol] 105 mmol/L 98-107 [facility] Glucose [Mass/Vol] 135 mg/dL 74-106 [facility] Comment on above: Fasting Glucose resu lt greater than or equal to 126 mg/dL suggests DIABETES MELLITUS per A.D.A. criteria. Potassium [Moles/Vol] 5.0 mmol/L 3.5-5.1 [facility] Sodium [Moles/Vol] 136 mmol/L 136-145 [facility] - Chemistry and C hemistry - challengeOrdered By: Myrna Barrios on 03-31-2023 CO2 [Moles/Vol] 27.0 mmol/L 21.0-32.0 [facility] Urea nitrogen/Creatinine [Mass ratio] 17.7 mg/mg 10-20 [facility] No Panel InformationOrdered By: Myrna Barrios on 03-31-2023 Estimated GFR (MDRD) Amer 31 mL/min >60 [facility] Comment on above: GFR Calc Estimated GFR (MDRD) Non-Af Amer 26 mL/min >60 [facility] Comment on above: Non- GFR Calc Serum or plasma calcium priyanka urement (mass/volume)Ordered By: Myrna Barrios on 03-31-2023 Calcium [Mass/Vol] 8.9 mg/dL 8.5-10.1 [facility] Serum or plasma creatinine m easurement (mass/volume)Ordered By: Myrna Barrios on 03-31-2023 Creatinine [Mass/Vol] 2.66 mg/dL 0.70-1.30 [facility] Comment on above: The validity of the calculated GFR & GFRAA in patients over 70 years has not been determined. Clinical correlation is essential. Serum or plasma urea nitroge n measurement (mass/volume)Ordered By: Myrna Barrios on 03-31-2023 Urea nitrogen [Mass/Vol] 47 mg/dL 7-18 [facility] Thin prep Papanicolaou smear with manual screeningOrdered By: Myrna Barrios on 03-31-2023 Thin prep Papanicolaou smear with manual screening 2.9 g/dL 3.2-5.0 [facility] Basophil percentageOrdered B y: Piedad Han on 03-24-2023 Chloride [Moles/Vol] 104 mmol/L 98-107 [facility] Glucose [Mass/Vol] 64 mg/dL 74-106 [facility] Potassium [Moles/Vol] 4.6 mmol/L 3.5-5.1 [facility] Sodium [Moles/Vol] 138 mmol/L 136-145 [facility] CNOVon 03-24-2023 CNOV Office Visit (PEDRITO) -- GAMALIEL GRIFFIN ([id number]) 1955 M Date Time Provider Department 03/24/23 1:30 PM CARD REHAB PHASE 2 NAUN MAJOR During your visit today, we recorded the following information about you: Rod Fernandez, Coal Trimmer Machine Operator 03/24/2023 1:41 PM Signed Cardiac [...] Daily Exercise Log will be scanned into Nomi once it is completed. These can be [...] Plan, and education sessions covered. Rod Fernandez Coal Trimmer Machine Operator Allergies As of Date: 03/24/2023 [...] 351- 400 = 10 units. - Insulin [place], Disposable, (BD ULTRA-FINE KENN PEN NEEDLE) 32 [...] Mitral regur (more content not included)... Normal [facility] GLUCOSE, BLOOD (POC)on 03-24 Glucose [Mass/Vol] 100 mg/dL Abnormal 74 - 99 mg/dL [facility] Glucose [Mass/Vol] 144 mg/dL Abnormal 74 - 99 mg/dL [facility] - Chemistry and C hemistry - challengeOrdered By: Piedad Han on 03-24-2023 CO2 [Moles/Vol] 27.0 mmol/L 21.0-32.0 [facility] Urea nitrogen/Creatinine [Mass ratio] 20.6 mg/mg 10-20 [facility] No Panel InformationOrdered By: Piedad Han on 03-24-2023 Estimated GFR (MDRD) Amer 25 mL/min >60 [facility] Comment on above: GFR Calc Estimated GFR (MDRD) Non-Af Amer 21 mL/min >60 [facility] Comment on above: Non- GFR Calc Serum or plasma calcium priyanka urement (mass/volume)Ordered By: Piedad Han on 03-24-2023 Calcium [Mass/Vol] 8.8 mg/dL 8.5-10.1 [facility] Serum or plasma creatinine m easurement (mass/volume)Ordered By: Piedad Han on 03-24-2023 Creatinine [Mass/Vol] 3.16 mg/dL 0.70-1.30 [facility] Comment on above: The validity of the calculated GFR & GFRAA in patients over 70 years has not been determined. Clinical correlation is essential. Serum or plasma urea nitroge n measurement (mass/volume)Ordered By: Piedad Han on 03-24-2023 Urea nitrogen [Mass/Vol] 65 mg/dL 7-18 [facility] Thin prep Papanicolaou smear with manual screeningOrdered By: Piedad Han on 03-24-2023 Thin prep Papanicolaou smear with manual screening 7 5-15 [facility] CNOVon 03-22-2023 CNOV Office Visit (PEDRITO) -- GAMALIEL GRIFFIN ([id number]) 1955 M Date Time Provider Department 03/22/23 1:30 PM CARD REHAB PHASE 2 NAUN MAJOR During your visit today, we recorded the following information about you: Jacob Gunter, eye dropper assembler 03/22/2023 1:51 PM Signed [facility] [...] Daily Exercise Log will be scanned into Nomi once it is completed. These can be [...] Plan, and education sessions covered. Jacob Gunter, Coal Trimmer Machine Operator Allergies As of Date: 03/22/2023 [...] 351- 400 = 10 units. - Insulin [place], Disposable, (BD ULTRA-FINE KENN PEN NEEDLE) 32 [...] Mitral regurgi (more content not included)... Normal [facility] GLUCOSE, BLOOD (POC)on 03-22 Glucose [Mass/Vol] 91 mg/dL 74 - 99 mg/dL [facility] Basophil percentageOrdered B y: Piedad Han on 03-17-2023 Chloride [Moles/Vol] 105 mmol/L 98-107 [facility] Glucose [Mass/Vol] 142 mg/dL 74-106 [facility] Comment on above: Fasting Glucose resu lt greater than or equal to 126 mg/dL suggests DIABETES MELLITUS per A.D.A. criteria. Potassium [Moles/Vol] 4.3 mmol/L 3.5-5.1 [facility] Sodium [Moles/Vol] 135 mmol/L 136-145 [facility] CNOVon 03-17-2023 CNOV Office Visit (PEDRITO) -- GAMALIEL GRIFFIN ([id number]) 1955 M Date Time Provider Department 03/17/23 1:30 PM CARD REHAB PHASE 2 [facility] During your visit today, we recorded the following information about you: Rod Fernandez, Coal Trimmer Machine Operator 03/17/2023 1:57 PM Signed Cardiac [...] Daily Exercise Log will be scanned into Nomi once it is completed. These can be [...] Plan, and education sessions covered. Rod Fernandez, Coal Trimmer Machine Operator Allergies As of Date: 03/17/2023 [...] 351- 400 = 10 units. - Insulin [place], Disposable, (BD ULTRA-FINE KENN PEN NEEDLE) 32 [...] 01/26/2023 Mitr (more content not included)... Normal [facility] - Chemistry and C hemistry - challengeOrdered By: Piedad Han on 03-17-2023 CO2 [Moles/Vol] 28.0 mmol/L 21.0-32.0 [facility] Urea nitrogen/Creatinine [Mass ratio] 20.2 mg/mg - [facility] No Panel InformationOrdered By: Piedad Han on 03-17-2023 Estimated GFR (MDRD) Amer 31 mL/min >60 [facility] Comment on above: GFR Calc Estimated GFR (MDRD) Non-Af Amer 26 mL/min >60 [facility] Comment on above: Non- GFR Calc Serum or plasma calcium priyanka urement (mass/volume)Ordered By: Piedad Han on 03-17-2023 Calcium [Mass/Vol] 8.8 mg/dL 8.5-10.1 [facility] Serum or plasma creatinine m easurement (mass/volume)Ordered By: Piedad Han on 03-17-2023 Creatinine [Mass/Vol] 2.62 mg/dL 0.70-1.30 [facility] Comment on above: The validity of the calculated GFR & GFRAA in patients over 70 years has not been determined. Clinical correlation is essential. Serum or plasma urea nitroge n measurement (mass/volume)Ordered By: Piedad Han on 03-17-2023 Urea nitrogen [Mass/Vol] 53 mg/dL 7-18 [facility] Thin prep Papanicolaou smear with manual screeningOrdered By: Piedad Han on 03-17-2023 Thin prep Papanicolaou smear with manual screening 2 5-15 [facility] CNOVon 03-14-2023 CNOV Office Visit (PEDRITO) -- GAMALIEL GRIFFIN ([id number]) 1955 M Date Time Provider Department 03/14/23 11:00 AM CARD EXERCISE NAUN MAJOR During your visit today, we recorded the following information about you: Pulse Blood pressure Weight Height 60/minute 116/60 85.5 kg 1.753 m Paris Kohler, Coal Trimmer Machine Operator 03/14/2023 12:24 PM [facility] [place] Velma Astorga Department of Cardiovascular Medicine Initial [...] units. 351- 400 = 10 units. Insulin [place], Disposable, (BD ULTRA-FINE KENN PEN NEEDLE) 32 [...] 27.82 kg/(m2). INDIVIDUAL TREATMENT PLAN Program Location: [facility] evaluation site : [facility] Cardiac Rehab Completed : [place] Program: Entry Phase II Primary Reason For [...] Heart Rate;Wit (more content not included)... Normal [facility] Absolute lymphocyte countOrd ered By: Piedad Trujillomaría elena on 03-09-2023 Lymphocytes Auto (Unsp spec) [#/Vol] 1.02 10*3/uL 0.83-4.51 [facility] Automated lymphocyte count a s percentage of total leukocytesOrdered By: Piedad Han on 03-09-2023 Lymphocytes/100 WBC Auto (Unsp spec) 12.0 % 19-41 [facility] Basophil percentageOrdered B y: Piedad Han on 03-09-2023 Basophil percentage 0 SEEN /hpf 0-5 [facility] Basophil percentage 3.8 mg/dL 2.5-4.9 [facility] Basophils/100 WBC (Bld) 0.6 % 0-1 [facility] Bilirubin [Mass/Vol] 0.20 mg/dL 0.20-1.00 [facility] Comment on above: For patients on eltr ombopag therapy, use of Dimension Mitchell TBIL is not recommended. Chloride [Moles/Vol] 106 mmol/L 98-107 [facility] Cholesterol [Mass/Vol] 116 mg/dL <200 [facility] Comment on above: <200 mg/dL Desirable 200-240 mg/dL Borderline >240 mg/dL High Risk Eosinophils/100 WBC (Bld) 4.8 % 0-5 [facility] Glucose [Mass/Vol] 85 mg/dL 74-106 [facility] Hemoglobin (Bld) [Mass/Vol] 11.3 g/dL 13.0-16.5 [facility] Monocytes/100 WBC (Bld) 6.9 % 0-10 [facility] Neutrophils (Bld) [#/Vol] 6.4 10*3/uL 2.0-7.7 [facility] Neutrophils/100 WBC (Bld) 75.2 % 47-70 [facility] Potassium [Moles/Vol] 5.2 mmol/L 3.5-5.1 [facility] Protein [Mass/Vol] 6.6 g/dL 6.4-8.2 [facility] Sodium [Moles/Vol] 137 mmol/L 136-145 [facility] Triglyceride [Mass/Vol] 157 mg/dL <199 [facility] Comment on above: The drugs N-Acetylcy steine and Metamizole may falsely depress this assay.Serum Triglycerides Reference Interval Normal <150 mg/dL Borderline high 150 - 199 mg/dL High 200 - 499 mg/dL Very High > or = 500 mg/dL WBC (Bld) [#/Vol] 8.5 10*3/uL 4.4-11.0 [facility] Bilirubin Test strip Ql (U)O rdered By: Piedad Han on 03-09-2023 Bilirubin Ql (U) Negative Negative [facility] Determination of erythrocyte mean corpuscular volume (MCV)Ordered By: Piedad Han on 03-09-2023 MCV (RBC) [Entitic vol] 91.7 fL 80-94 [facility] Erythrocyte distribution wid th ratioOrdered By: Piedad Hna on 03-09-2023 Erythrocyte distribution width (RBC) [Ratio] 14.7 % 11.6-14.6 [facility] Erythrocyte distribution wid th standard deviationOrdered By: Piedad Han on 03-09-2023 Erythrocyte distribution width (RBC) [Entitic vol] 49.4 fL 35.1-43.9 [facility] Hematocrit Auto (Bld) [Volum e fraction]Ordered By: Piedad Han on 03-09-2023 Hematocrit (Bld) [Volume fraction] 35.2 % 40-54 [facility] High density lipoprotein (HD L) measurementOrdered By: Piedad Han on 03-09-2023 Cholesterol in HDL (Body fld) [Mass/Vol] 39 mg/dL >40 [facility] Comment on above: The drugs N-Acetylcy steine and Metamizole may falsely depress this assay. Reference Range HDL <40 mg/dL Low HDL Cholesterol HDL >or= 60 mg/dL High HDL Cholesterol Immature granulocytes/100 WB C Auto (Bld)Ordered By: Piedad Han on 03-09-2023 Immature granulocytes/100 WBC (Bld) 0.500 % 0.0-0.9 [facility] Comment on above: IG% - Immature Granu locytes (promyelocytes, myelocytes and metamyelocytes) > 1% indicates that a LEFT SHIFT is Present. Intact parathyroid hormone ( iPTH) measurementOrdered By: Piedad Han on 03-09-2023 Parathyrin.intact (Tissue fine needle aspirate) [Mass/Vol] 99.9 pg/mL 18.4-80.1 [facility] Ketones Test strip Ql (U)Ord ered By: Piedad Han on 03-09-2023 Ketones Ql (U) Negative Negative [facility] Laboratory - Chemistry and C hemistry - challengeOrdered By: Pidead Han on 03-09-2023 Albumin/Globulin [Mass ratio] 0.8 {ratio} 0.9-2.4 [facility] ALP [Catalytic activity/Vol] 123 U/L 45-117 [facility] ALT [Catalytic activity/Vol] 22 U/L 16-61 [facility] CO2 [Moles/Vol] 26.0 mmol/L 21.0-32.0 [facility] Globulin (S) [Mass/Vol] 3.7 g/dL 2.2-4.2 [facility] Magnesium [Mass/Vol] 2.5 mg/dL 1.6-2.6 [facility] Urea nitrogen/Creatinine [Mass ratio] 22.5 mg/mg 10-20 [facility] Laboratory - Hematology and Cell countsOrdered By: Piedad Han on 03-09-2023 MCH (RBC) [Entitic mass] 29.4 pg 27.0-32.0 [facility] MCHC (RBC) [Mass/Vol] 32.1 g/dL 32-36 [facility] Nucleated RBC/100 WBC (Bld) [Ratio] 0 % 0-5 [facility] Platelets (Bld) [#/Vol] 272 10*3/uL 150-450 [facility] Low density lipoprotein (LDL ) cholesterol measurementOrdered By: Piedad Han on 03-09-2023 Cholesterol in LDL (Body fld) [Moles/Vol] 46 mg/dL 0-130 [facility] Mucus LM Ql (Urine sed)Order ed By: Piedad Han on 03-09-2023 Mucus Ql (Urine sed) 0 SEEN /hpf [facility] Nitrite Test strip Ql (U)Ord ered By: Piedad Han on 03-09-2023 Nitrite Ql (U) Negative Negative [facility] No Panel InformationOrdered By: Piedad Han on 03-09-2023 Estimated GFR (MDRD) Amer 31 mL/min >60 [facility] Comment on above: GFR Calc Estimated GFR (MDRD) Non-Af Amer 26 mL/min >60 [facility] Comment on above: Non- GFR Calc Urine RBC 0 SEEN /hpf 0-5 [facility] Vitamin D 25-Hydroxy 19.9 ng/mL [facility] Comment on above: Vitamin D 25(OH) Sta tus Range Deficiency <20 ng/mL (50nmol/L) Insufficiency 20 - 30 ng/mL (50 - 75 nmol/L) Sufficiency 30 - 100 ng/mL (75 - 250 nmol/L) Toxicity >100 ng/mL (>250 nmol/L) Platelet mean volume Shay-Ec ker (Bld) [Entitic vol]Ordered By: Piedad Han on 03-09-2023 Platelet mean volume (Bld) [Entitic vol] 8.6 fL 6.2-12.0 [facility] Protein Test strip Ql (U)Ord ered By: Piedad Han on 03-09-2023 Protein Ql (U) 100 mg/dl Negative [facility] RBC Auto (Bld) [#/Vol]Ordere d By: Piedad Han on 03-09-2023 RBC (Bld) [#/Vol] 3.84 10*6/uL 4.6-6.2 [facility] Serum or plasma calcium priyanka urement (mass/volume)Ordered By: Piedad Han on 03-09-2023 Calcium [Mass/Vol] 8.7 mg/dL 8.5-10.1 [facility] Serum or plasma creatinine m easurement (mass/volume)Ordered By: Piedad Han on 03-09-2023 Creatinine [Mass/Vol] 2.62 mg/dL 0.70-1.30 [facility] Comment on above: The validity of the calculated GFR & GFRAA in patients over 70 years has not been determined. Clinical correlation is essential. Serum or plasma thyroid stim ulating hormone (TSH) measurement (units/volume)Ordered By: Piedad Han on 03-09-2023 TSH Qn 1.32 uIU/mL 0.358-3.74 [facility] Serum or plasma urea nitroge n measurement (mass/volume)Ordered By: Piedad Han on 03-09-2023 Urea nitrogen [Mass/Vol] 59 mg/dL 7-18 [facility] Squamous epithelial cells de tection in urine sediment by light microscopyOrdered By: Piedad Han on 03-09-2023 Epithelial cells.squamous LM Ql (Urine sed) 0 SEEN /hpf 0-5 [facility] Thin prep Papanicolaou smear with manual screeningOrdered By: Piedad Han on 03-09-2023 Protein (U) [Mass/Vol] 190.1 mg/dL 0.0-11.8 [facility] Thin prep Papanicolaou smear with manual screening 2.9 g/dL 3.2-5.0 [facility] Thin prep Papanicolaou smear with manual screening 18 U/L 15-37 [facility] Thin prep Papanicolaou smear with manual screening 5 5-15 [facility] Thin prep Papanicolaou smear with manual screening 1.28 ng/dL 0.76-1.46 [facility] Urine blood detectionOrdered By: Piedad Han on 03-09-2023 RBC Ql (U) Negative Negative [facility] Urine clarityOrdered By: Zhang Han on 03-09-2023 Clarity (U) Clear Clear [facility] Urine color determinationOrd ered By: Piedad Han on 03-09-2023 Color (U) Yellow Yellow [facility] Urine creatinine measurement (mass/volume)Ordered By: Piedad Han on 03-09-2023 Creatinine (U) [Mass/Vol] 76.00 mg/dL NO RANGE EST. [facility] Urine glucose detectionOrder ed By: Piedad Han on 03-09-2023 Glucose Ql (U) 1000 mg/dl Normal [facility] Urine leukocyte esterase det ection by dipstickOrdered By: Piedad Han on 03-09-2023 Leukocyte esterase Test strip Ql (U) Negative Negative [facility] Urine pHOrdered By: Piedad ring on 03-09-2023 pH (U) 5.0 [pH] 5.0 - 8.0 [facility] Urine protein/creatinine mas s ratioOrdered By: Piedad Han on 03-09-2023 Protein/Creatinine (U) [Mass ratio] 2501 mg/g CRE 0-200 [facility] Urine sediment bacteria coun t by microscopy (number/high power field)Ordered By: Piedad Han on 03-09-2023 Bacteria LM.HPF (Urine sed) [#/Area] 0 /[HPF] None Seen [facility] Urine specific gravity measu rementOrdered By: Piedad Han on 03-09-2023 Specific gravity (U) [Rel density] 1.015 1.002-1.03 0 [facility] Urine urobilinogen measureme ntOrdered By: Piedad Han on 03-09-2023 Urobilinogen Ql (U) Normal mg/dl Normal [facility] Very low density lipoprotein (VLDL) cholesterol measurementOrdered By: Piedad Han on 03-09-2023 Cholesterol in VLDL Calc [Moles/Vol] 31 mg/dL 5-40 [facility] Whole blood hemoglobin A1c/t otal hemoglobin ratio (mass fraction)Ordered By: Piedad Han on 03-09-2023 HbA1c (Bld) [Mass fraction] 6.3 % 3.8-5.6 [facility] Comment on above: Normal < 5.7 % Predi abetic 5.7 - 6.4 % Diabetic >or= 6.5 % Please note range changes. Basophil percentageOrdered B y: Beena Jay on 02-07-2023 Chloride [Moles/Vol] 107 mmol/L 98-107 [facility] Glucose [Mass/Vol] 74 mg/dL 74-106 [facility] Potassium [Moles/Vol] 4.6 mmol/L 3.5-5.1 [facility] Sodium [Moles/Vol] 136 mmol/L 136-145 [facility] Laboratory - Chemistry and C hemistry - challengeOrdered By: Beena Jay on 02-07-2023 CO2 [Moles/Vol] 26.0 mmol/L 21.0-32.0 [facility] Urea nitrogen/Creatinine [Mass ratio] 16.7 mg/mg 10-20 [facility] No Panel InformationOrdered By: Beena Jay on 02-07-2023 Estimated GFR (MDRD) Amer 31 mL/min >60 [facility] Comment on above: GFR Calc Estimated GFR (MDRD) Non-Af Amer 25 mL/min >60 [facility] Comment on above: Non- GFR Calc Serum or plasma calcium priyanka urement (mass/volume)Ordered By: Beena Jay on 02-07-2023 Calcium [Mass/Vol] 8.7 mg/dL 8.5-10.1 [facility] Serum or plasma creatinine m easurement (mass/volume)Ordered By: Beena Jay on 02-07-2023 Creatinine [Mass/Vol] 2.69 mg/dL 0.70-1.30 [facility] Comment on above: The validity of the calculated GFR & GFRAA in patients over 70 years has not been determined. Clinical correlation is essential. Serum or plasma urea nitroge n measurement (mass/volume)Ordered By: Beena Jay on 02-07-2023 Urea nitrogen [Mass/Vol] 45 mg/dL 7-18 [facility] Thin prep Papanicolaou smear with manual screeningOrdered By: Beena Jay on 02-07-2023 Thin prep Papanicolaou smear with manual screening 3 5-15 [facility] CNPNon 11-15-2022 CNPN Telephone (CARMOB) -- GAMALIEL GRIFFIN ([id number]) 1955 Date Time Provider Department 11/15/22 MANI LUIS During your visit today, we recorded the following information about you: Miguelina Kyle 11/15/2022 1:01 PM Signed Received a referral from [facility] the office of Dr. Ibarra. [...] [place] [facility] [place] This was based on the patient EF [...] by mouth twice daily. - AFLURIA QUAD [id number], PF, 60 mcg/0.5 mL syrg To be injected by Pharmacist - benzonatate (TESSALON PERLES) 100 mg capsule Take 1 capsule by mouth three times daily as needed for Cough. - mometasone (NASONEX) 50 mcg/actuation nasal spray Use 2 Sprays in each nostril once daily. Problem List As Of Date: 11/15/2022 (None) Encounter Status:Closed by WHIT ALCARAZ on 11/18/22 [facility] Basophil percentageOrdered B y: Pedro Ibarra on 11-08-2022 Chloride [Moles/Vol] 110 mmol/L 98-107 [facility] Glucose [Mass/Vol] 209 mg/dL 74-106 [facility] Comment on above: Glucose result great er than or equal to 200 mg/dLsuggests DIABETES MELLITUS per A.D.A. criteria. Potassium [Moles/Vol] 4.4 mmol/L 3.5-5.1 [facility] Sodium [Moles/Vol] 138 mmol/L 136-145 [facility] Laboratory - Chemistry and C hemistry - challengeOrdered By: Pedro Ibarra on 11-08-2022 CO2 [Moles/Vol] 22.0 mmol/L 21.0-32.0 [facility] Urea nitrogen/Creatinine [Mass ratio] 16.6 mg/mg 10-20 [facility] No Panel InformationOrdered By: Pedro Ibarra on 11-08-2022 Estimated Creatinine Clearance Calc 33.97 ml/min [facility] Estimated GFR (MDRD) Amer 40 mL/min >60 [facility] Comment on above: GFR Calc Estimated GFR (MDRD) Non-Af Amer 33 mL/min >60 [facility] Comment on above: Non- GFR Calc Serum or plasma calcium priyanka urement (mass/volume)Ordered By: Pedro Ibarra on 11-08-2022 Calcium [Mass/Vol] 8.1 mg/dL 8.5-10.1 [facility] Serum or plasma creatinine m easurement (mass/volume)Ordered By: Pedro Ibarra on 11-08-2022 Creatinine [Mass/Vol] 2.11 mg/dL 0.70-1.30 [facility] Comment on above: The validity of the calculated GFR & GFRAA in patients over 70 years has not been determined. Clinical correlation is essential. Serum or plasma urea nitroge n measurement (mass/volume)Ordered By: Pedro Ibarra on 11-08-2022 Urea nitrogen [Mass/Vol] 35 mg/dL 7-18 [facility] Thin prep Papanicolaou smear with manual screeningOrdered By: Pedro Ibarra on 11-08-2022 Thin prep Papanicolaou smear with manual screening 6 5-15 [facility] Glucose Glucometer (BldC) [M ass/Vol]Ordered By: Pedro Ibarra on 11-07-2022 Glucose [Mass/Vol] 260 mg/dL 74-106 [facility] Comment on above: MANAGEMENT OF PATIEN T CARE PER NURSING PROTOCOL Basophil percentageOrdered B y: Pedro Ibarra on 11-03-2022 Chloride [Moles/Vol] 104 mmol/L 98-107 [facility] Glucose [Mass/Vol] 197 mg/dL 74-106 [facility] Comment on above: Fasting Glucose resu lt greater than or equal to 126 mg/dL suggests DIABETES MELLITUS per A.D.A. criteria. Potassium [Moles/Vol] 4.6 mmol/L 3.5-5.1 [facility] Sodium [Moles/Vol] 135 mmol/L 136-145 [facility] WBC (Bld) [#/Vol] 7.8 10*3/uL 4.4-11.0 [facility] Blood erythrocytes count (nu mber/volume)Ordered By: Pedro Ibarra on 11-03-2022 RBC (Bld) [#/Vol] 4.41 10*6/uL 4.6-6.2 [facility] Blood hemoglobin measurement (mass/volume)Ordered By: Pedro Ibarra on 11-03-2022 Hemoglobin (Bld) [Mass/Vol] 13.3 g/dL 13.0-16.5 [facility] Blood platelet mean volumeOr dered By: Pedro Ibarra on 11-03-2022 Platelet mean volume (Bld) [Entitic vol] 9.2 fL 6.2-12.0 [facility] Determination of erythrocyte mean corpuscular volume (MCV)Ordered By: Pedro Ibarra on 11-03-2022 MCV (RBC) [Entitic vol] 91.6 fL 80-94 [facility] Hematocrit Auto (Bld) [Volum e fraction]Ordered By: Pedro Ibarra on 11-03-2022 Hematocrit (Bld) [Volume fraction] 40.4 % 40-54 [facility] INR in Blood by Coagulation assayOrdered By: Pedro Ibarra on 11-03-2022 INR Coag (Bld) [Relative time] 1.0 {INR} [facility] Laboratory - Chemistry and C hemistry - challengeOrdered By: Pedro Ibrara on 11-03-2022 CO2 [Moles/Vol] 27.0 mmol/L 21.0-32.0 [facility] Urea nitrogen/Creatinine [Mass ratio] 19.1 mg/mg 10-20 [facility] Laboratory - CoagulationOrde red By: Pedro Ibarra on 11-03-2022 aPTT Coag (Bld) [Time] 25.6 s 24.1-36.2 [facility] PT Coag (PPP) [Time] 12.9 s 11.7-14.9 [facility] Laboratory - Hematology and Cell countsOrdered By: Pedro Ibarra on 11-03-2022 Erythrocyte distribution width (RBC) [Entitic vol] 44.0 fL 35.1-43.9 [facility] Erythrocyte distribution width (RBC) [Ratio] 13.3 % 11.6-14.6 [facility] MCH (RBC) [Entitic mass] 30.2 pg 27.0-32.0 [facility] MCHC Auto (RBC) [Mass/Vol]Or dered By: Pedro Ibarra on 11-03-2022 MCHC (RBC) [Mass/Vol] 32.9 g/dL 32-36 [facility] No Panel InformationOrdered By: Pedro Ibarra on 11-03-2022 Estimated GFR (MDRD) Amer 34 mL/min >60 [facility] Comment on above: GFR Calc Estimated GFR (MDRD) Non-Af Amer 28 mL/min >60 [facility] Comment on above: Non- GFR Calc Platelets bldOrdered By: Brian Ibarra on 11-03-2022 Platelets (Bld) [#/Vol] 198 10*3/uL 150-450 [facility] Serum or plasma calcium priyanka urement (mass/volume)Ordered By: Pedro Ibarra on 11-03-2022 Calcium [Mass/Vol] 8.9 mg/dL 8.5-10.1 [facility] Serum or plasma creatinine m easurement (mass/volume)Ordered By: Pedro Ibarra on 11-03-2022 Creatinine [Mass/Vol] 2.46 mg/dL 0.70-1.30 [facility] Comment on above: The validity of the calculated GFR & GFRAA in patients over 70 years has not been determined. Clinical correlation is essential. Serum or plasma urea nitroge n measurement (mass/volume)Ordered By: Pedro Ibarra on 11-03-2022 Urea nitrogen [Mass/Vol] 47 mg/dL 08-30 [facility] Thin prep Papanicolaou smear with manual screeningOrdered By: Pedro Ibarra on 11-03-2022 Thin prep Papanicolaou smear with manual screening 4 - [facility] Absolute lymphocyte countOrd ered By: Piedad Han on 08-30-2022 Lymphocytes Auto (Unsp spec) [#/Vol] 1.14 10*3/uL 0.83-4.51 [facility] Basophil percentageOrdered B y: Piedad Han on 08-30-2022 Basophil percentage 0 SEEN /hpf 0-5 [facility] Basophil percentage 4.0 mg/dL 2.5-4.9 [facility] Basophils/100 WBC (Bld) 0.8 % 0-1 [facility] Bilirubin [Mass/Vol] 0.30 mg/dL 0.20-1.00 [facility] Comment on above: For patients on eltr ombopag therapy, use of Dimension Mitchell TBIL is not recommended. Chloride [Moles/Vol] 103 mmol/L 98-107 [facility] Cholesterol [Mass/Vol] 123 mg/dL <200 [facility] Comment on above: <200 mg/dL Desirable 200-240 mg/dL Borderline >240 mg/dL High Risk Eosinophils/100 WBC (Bld) 5.5 % 0-5 [facility] Glucose [Mass/Vol] 134 mg/dL 74-106 [facility] Comment on above: Fasting Glucose resu lt greater than or equal to 126 mg/dL suggests DIABETES MELLITUS per A.D.A. criteria. Neutrophils (Bld) [#/Vol] 4.3 10*3/uL 2.0-7.7 [facility] Neutrophils/100 WBC (Bld) 65.6 % 47-70 [facility] Potassium [Moles/Vol] 4.8 mmol/L 3.5-5.1 [facility] Protein [Mass/Vol] 6.7 g/dL 6.4-8.2 [facility] Sodium [Moles/Vol] 135 mmol/L 136-145 [facility] Triglyceride [Mass/Vol] 141 mg/dL <199 [facility] Comment on above: The drugs N-Acetylcy steine and Metamizole may falsely depress this assay.Serum Triglycerides Reference Interval Normal <150 mg/dL Borderline high 150 - 199 mg/dL High 200 - 499 mg/dL Very High > or = 500 mg/dL WBC (Bld) [#/Vol] 6.6 10*3/uL 4.4-11.0 [facility] Bilirubin Test strip Ql (U)O rdered By: Piedad Han on 08-30-2022 Bilirubin Ql (U) Negative Negative [facility] Blood erythrocytes count (nu mber/volume)Ordered By: Piedad Han on 08-30-2022 RBC (Bld) [#/Vol] 4.40 10*6/uL 4.6-6.2 [facility] Blood hemoglobin measurement (mass/volume)Ordered By: Piedad Han on 08-30-2022 Hemoglobin (Bld) [Mass/Vol] 13.3 g/dL 13.0-16.5 [facility] Blood lymphocytes/100 leukoc ytesOrdered By: Piedad Han on 08-30-2022 Lymphocytes/100 WBC (Bld) 17.3 % 19-41 [facility] Blood monocytes/100 leukocyt esOrdered By: Piedad Han on 08-30-2022 Monocytes/100 WBC (Bld) 10.5 % 0-10 [facility] Blood platelet mean volumeOr dered By: Piedad Han on 08-30-2022 Platelet mean volume (Bld) [Entitic vol] 8.6 fL 6.2-12.0 [facility] Determination of erythrocyte mean corpuscular volume (MCV)Ordered By: Piedad Han on 08-30-2022 MCV (RBC) [Entitic vol] 91.8 fL 80-94 [facility] Hematocrit Auto (Bld) [Volum e fraction]Ordered By: Piedad Han on 08-30-2022 Hematocrit (Bld) [Volume fraction] 40.4 % 40-54 [facility] Ketones Test strip Ql (U)Ord ered By: Pidead Han on 08-30-2022 Ketones Ql (U) Negative Negative [facility] Laboratory - Chemistry and C hemistry - challengeOrdered By: Piedad aHn on 08-30-2022 ALP [Catalytic activity/Vol] 112 U/L 45-117 [facility] ALT [Catalytic activity/Vol] 25 U/L 16-61 [facility] CO2 [Moles/Vol] 28.0 mmol/L 21.0-32.0 [facility] Free T4 [Mass/Vol] 1.19 ng/dL 0.76-1.46 [facility] Globulin (S) [Mass/Vol] 3.6 g/dL 2.2-4.2 [facility] Urea nitrogen/Creatinine [Mass ratio] 17.5 mg/mg 10-20 [facility] - Hematology and Cell countsOrdered By: Piedad Han on 08-30-2022 Erythrocyte distribution width (RBC) [Entitic vol] 43.8 fL 35.1-43.9 [facility] Erythrocyte distribution width (RBC) [Ratio] 13.1 % 11.6-14.6 [facility] Immature granulocytes/100 WBC (Bld) 0.300 % 0.0-0.9 [facility] Comment on above: IG% - Immature Granu locytes (promyelocytes, myelocytes and metamyelocytes) > 1% indicates that a LEFT SHIFT is Present. MCH (RBC) [Entitic mass] 30.2 pg 27.0-32.0 [facility] Nucleated RBC/100 WBC (Bld) [Ratio] 0 % 0-5 [facility] MCHC Auto (RBC) [Mass/Vol]Or dered By: Piedad Han on 08-30-2022 MCHC (RBC) [Mass/Vol] 32.9 g/dL 32-36 [facility] Mucus LM Ql (Urine sed)Order ed By: Piedad Han on 08-30-2022 Mucus Ql (Urine sed) 0 SEEN /hpf [facility] Nitrite Test strip Ql (U)Ord ered By: Piedad Han on 08-30-2022 Nitrite Ql (U) Negative Negative [facility] No Panel InformationOrdered By: Piedad Han on 08-30-2022 Estimated GFR (MDRD) Amer 36 mL/min >60 [facility] Comment on above: GFR Calc Estimated GFR (MDRD) Non-Af Amer 30 mL/min >60 [facility] Comment on above: Non- GFR Calc Parathyroid Hormone (Intact) 43.6 pg/mL 18.4-80.1 [facility] Thyroid Stimulating Hormone (TSH) 0.63 uIU/mL 0.358-3.74 [facility] Urine Microalbumin/Creatinine Ratio 2744.8 mg/g CRE <30 [facility] Vitamin D 25-Hydroxy 45.8 ng/mL [facility] Comment on above: Vitamin D 25(OH) Sta tus Range Deficiency <20 ng/mL (50nmol/L) Insufficiency 20 - 30 ng/mL (50 - 75 nmol/L) Sufficiency 30 - 100 ng/mL (75 - 250 nmol/L) Toxicity >100 ng/mL (>250 nmol/L) Platelets bldOrdered By: Zhang Han on 08-30-2022 Platelets (Bld) [#/Vol] 197 10*3/uL 150-450 [facility] Protein Test strip Ql (U)Ord ered By: Piedad Han on 08-30-2022 Protein Ql (U) 100 mg/dl Negative [facility] Serum or plasma albumin priyanka urement (mass/volume)Ordered By: Piedad Han on 08-30-2022 Albumin [Mass/Vol] 3.1 g/dL 3.2-5.0 [facility] Serum or plasma albumin/glob ulin mass ratioOrdered By: Piedad Han on 08-30-2022 Albumin/Globulin [Mass ratio] 0.9 {ratio} 0.9-2.4 [facility] Serum or plasma calcium priyanka urement (mass/volume)Ordered By: Piedad Han on 08-30-2022 Calcium [Mass/Vol] 9.3 mg/dL 8.5-10.1 [facility] Serum or plasma cholesterol in HDL measurement (mass/volume)Ordered By: Piedad Han on 08-30-2022 Cholesterol in HDL [Mass/Vol] 46 mg/dL >40 [facility] Comment on above: The drugs N-Acetylcy steine and Metamizole may falsely depress this assay. Reference Range HDL <40 mg/dL Low HDL Cholesterol HDL >or= 60 mg/dL High HDL Cholesterol Serum or plasma cholesterol in VLDL measurement (mass/volume)Ordered By: Piedad Han on 08-30-2022 Cholesterol in VLDL [Mass/Vol] 28 mg/dL 5-40 [facility] Serum or plasma creatinine m easurement (mass/volume)Ordered By: Piedad Han on 08-30-2022 Creatinine [Mass/Vol] 2.34 mg/dL 0.70-1.30 [facility] Comment on above: The validity of the calculated GFR & GFRAA in patients over 70 years has not been determined. Clinical correlation is essential. Serum or plasma low density lipoprotein (LDL) cholesterol measurement (mass/volume)Ordered By: Piedad Han on 08-30-2022 Cholesterol in LDL [Mass/Vol] 49 mg/dL 0-130 [facility] Serum or plasma urea nitroge n measurement (mass/volume)Ordered By: Piedad Han on 08-30-2022 Urea nitrogen [Mass/Vol] 41 mg/dL 7-18 [facility] Squamous epithelial cells de tection in urine sediment by light microscopyOrdered By: Piedad Han on 08-30-2022 Epithelial cells.squamous LM Ql (Urine sed) 0 SEEN /hpf 0-5 [facility] Thin prep Papanicolaou smear with manual screeningOrdered By: Piedad Han on 08-30-2022 Thin prep Papanicolaou smear with manual screening 22 U/L 15-37 [facility] Thin prep Papanicolaou smear with manual screening 4 5-15 [facility] Thin prep Papanicolaou smear with manual screening 527.0 mg/L NO RANGE EST. [facility] Urine blood detectionOrdered By: Piedad Han on 08-30-2022 RBC Ql (U) 10 /ul Negative [facility] RBC Ql (U) 0 SEEN /hpf 0-5 [facility] Urine clarityOrdered By: Zhang Han on 08-30-2022 Clarity (U) Clear Clear [facility] Urine color determinationOrd ered By: Piedad Han on 08-30-2022 Color (U) Straw Yellow [facility] Urine creatinine measurement (mass/volume)Ordered By: Piedad Han on 08-30-2022 Creatinine (U) [Mass/Vol] 19.20 mg/dL NO RANGE EST. [facility] Urine glucose detectionOrder ed By: Piedad Han on 08-30-2022 Glucose Ql (U) 1000 mg/dl Normal [facility] Urine leukocyte esterase det ection by dipstickOrdered By: Piedad Han on 08-30-2022 Leukocyte esterase Test strip Ql (U) Negative Negative [facility] Urine pHOrdered By: Piedad ring on 08-30-2022 pH (U) 6.5 [pH] 5.0 - 8.0 [facility] Urine protein measurement (m ass/volume)Ordered By: Piedad Han on 08-30-2022 Protein (U) [Mass/Vol] 63.6 mg/dL 0.0-11.8 [facility] Urine protein/creatinine mas s ratioOrdered By: Piedad Han on 08-30-2022 Protein/Creatinine (U) [Mass ratio] 3313 mg/g CRE 0-200 [facility] Urine sediment bacteria coun t by microscopy (number/high power field)Ordered By: Piedad Han on 08-30-2022 Bacteria LM.HPF (Urine sed) [#/Area] 0 /[HPF] None Seen [facility] Urine specific gravity measu rementOrdered By: Piedad Han on 08-30-2022 Specific gravity (U) [Rel density] 1.005 1.002-1.03 0 [facility] Urobilinogen Auto test strip Ql (U)Ordered By: Piedad Han on 08-30-2022 Urobilinogen Ql (U) Normal mg/dl Normal [facility] Whole blood hemoglobin A1c/t otal hemoglobin ratio (mass fraction)Ordered By: Piedad Han on 08-30-2022 HbA1c (Bld) [Mass fraction] 8.3 % 3.8-5.6 [facility] Comment on above: Normal < 5.7 % Predi abetic 5.7 - 6.4 % Diabetic >or= 6.5 % Please note range changes. Basophil percentageOrdered B y: Piedad Han on 08-12-2022 Bilirubin [Mass/Vol] 0.30 mg/dL 0.20-1.00 [facility] Comment on above: For patients on eltr ombopag therapy, use of Dimension [place] TBIL is not recommended. Chloride [Moles/Vol] 104 mmol/L 98-107 [facility] Glucose [Mass/Vol] 193 mg/dL 74-106 [facility] Comment on above: Fasting Glucose resu lt greater than or equal to 126 mg/dL suggests DIABETES MELLITUS per A.D.A. criteria. Potassium [Moles/Vol] 4.6 mmol/L 3.5-5.1 [facility] Protein [Mass/Vol] 6.7 g/dL 6.4-8.2 [facility] Sodium [Moles/Vol] 135 mmol/L 136-145 [facility] Laboratory - Chemistry and C hemistry - challengeOrdered By: Piedad Han on 08-12-2022 ALP [Catalytic activity/Vol] 114 U/L 45-117 [facility] ALT [Catalytic activity/Vol] 23 U/L 16-61 [facility] CK [Catalytic activity/Vol] 249 U/L 39-308 [facility] CO2 [Moles/Vol] 24.0 mmol/L 21.0-32.0 [facility] Globulin (S) [Mass/Vol] 3.7 g/dL 2.2-4.2 [facility] Magnesium [Mass/Vol] 2.3 mg/dL 1.6-2.6 [facility] Urea nitrogen/Creatinine [Mass ratio] 17.1 mg/mg 10-20 [facility] No Panel InformationOrdered By: Piedad Han on 08-12-2022 Estimated GFR (MDRD) Amer 34 mL/min >60 [facility] Comment on above: GFR Calc Estimated GFR (MDRD) Non-Af Amer 28 mL/min >60 [facility] Comment on above: Non- GFR Calc Serum or plasma albumin priyanka urement (mass/volume)Ordered By: Piedad Han on 08-12-2022 Albumin [Mass/Vol] 3.0 g/dL 3.2-5.0 [facility] Serum or plasma albumin/glob ulin mass ratioOrdered By: Piedad Han on 08-12-2022 Albumin/Globulin [Mass ratio] 0.8 {ratio} 0.9-2.4 [facility] Serum or plasma calcium priyanka urement (mass/volume)Ordered By: Piedad Han on 08-12-2022 Calcium [Mass/Vol] 8.9 mg/dL 8.5-10.1 [facility] Serum or plasma creatinine m easurement (mass/volume)Ordered By: Piedad Han on 08-12-2022 Creatinine [Mass/Vol] 2.45 mg/dL 0.70-1.30 [facility] Comment on above: The validity of the calculated GFR & GFRAA in patients over 70 years has not been determined. Clinical correlation is essential. Serum or plasma ferritin gonzalo surement (mass/volume)Ordered By: Piedad Han on 08-12-2022 Ferritin [Mass/Vol] 148 ng/mL 26-388 [facility] Serum or plasma urea nitroge n measurement (mass/volume)Ordered By: Piedad Han on 08-12-2022 Urea nitrogen [Mass/Vol] 42 mg/dL 7-18 [facility] Thin prep Papanicolaou smear with manual screeningOrdered By: Piedad Han on 08-12-2022 Thin prep Papanicolaou smear with manual screening 22 U/L 15-37 [facility] Thin prep Papanicolaou smear with manual screening 7 5-15 [facility] Basophil percentageOrdered B y: Myrna Barrios on 07-27-2022 Basophil percentage 3.6 mg/dL 2.5-4.9 [facility] Chloride [Moles/Vol] 104 mmol/L 98-107 [facility] Glucose [Mass/Vol] 160 mg/dL 74-106 [facility] Comment on above: Fasting Glucose resu lt greater than or equal to 126 mg/dL suggests DIABETES MELLITUS per A.D.A. criteria. Potassium [Moles/Vol] 4.5 mmol/L 3.5-5.1 [facility] Sodium [Moles/Vol] 136 mmol/L 136-145 [facility] - Chemistry and C hemistry - challengeOrdered By: Myrna Barrios on 07-27-2022 CO2 [Moles/Vol] 26.0 mmol/L 21.0-32.0 [facility] Urea nitrogen/Creatinine [Mass ratio] 17.0 mg/mg 10-20 [facility] No Panel InformationOrdered By: Myrna Barrios on 07-27-2022 Estimated GFR (MDRD) Amer 43 mL/min >60 [facility] Comment on above: GFR Calc Estimated GFR (MDRD) Non-Af Amer 36 mL/min >60 [facility] Comment on above: Non- GFR Calc Serum or plasma albumin priyanka urement (mass/volume)Ordered By: Myrna Barrios on 07-27-2022 Albumin [Mass/Vol] 3.1 g/dL 3.2-5.0 [facility] Serum or plasma calcium priyanka urement (mass/volume)Ordered By: Myrna Barrios on 07-27-2022 Calcium [Mass/Vol] 9.0 mg/dL 8.5-10.1 [facility] Serum or plasma creatinine m easurement (mass/volume)Ordered By: Myrna Barrios on 07-27-2022 Creatinine [Mass/Vol] 2.00 mg/dL 0.70-1.30 [facility] Comment on above: The validity of the calculated GFR & GFRAA in patients over 70 years has not been determined. Clinical correlation is essential. Serum or plasma urea nitroge n measurement (mass/volume)Ordered By: Myrna Barrios on 07-27-2022 Urea nitrogen [Mass/Vol] 34 mg/dL 7-18 [facility] Basophil percentageOrdered B y: Dr. Barrios on 06-20-2022 Basophil percentage 3.5 mg/dL 2.5-4.9 [facility] Chloride [Moles/Vol] 103 mmol/L 98-107 [facility] Glucose [Mass/Vol] 175 mg/dL 74-106 [facility] Comment on above: Fasting Glucose resu lt greater than or equal to 126 mg/dL suggests DIABETES MELLITUS per A.D.A. criteria. Potassium [Moles/Vol] 4.5 mmol/L 3.5-5.1 [facility] Sodium [Moles/Vol] 134 mmol/L 136-145 [facility] - Chemistry and C hemistry - challengeOrdered By: Dr. Barrios on 06-20-2022 CO2 [Moles/Vol] 28.0 mmol/L 21.0-32.0 [facility] Urea nitrogen/Creatinine [Mass ratio] 16.2 mg/mg 10-20 [facility] No Panel InformationOrdered By: Beena Jay on 06-20-2022 Prostate Specific Antigen Screen 1.53 ng/mL 0.00-4.00 [facility] Comment on above: This test was perfor med using the TPSA assay method for [employer] chemistry system. Values obtained with differentassay methods cannot be used interchangably.When changing PSA assays in the course of monitoring apatient, additional sequential testing should be carriedout to confirm baseline values. No Panel InformationOrdered By: Dr. Barrios on 06-20-2022 Estimated GFR (MDRD) Amer 38 mL/min >60 [facility] Comment on above: GFR Calc Estimated GFR (MDRD) Non-Af Amer 32 mL/min >60 [facility] Comment on above: Non- GFR Calc Serum or plasma albumin priyanka urement (mass/volume)Ordered By: Dr. Barrios on 06-20-2022 Albumin [Mass/Vol] 3.0 g/dL 3.2-5.0 [facility] Serum or plasma calcium priyanka urement (mass/volume)Ordered By: Dr. Barrios on 06-20-2022 Calcium [Mass/Vol] 8.9 mg/dL 8.5-10.1 [facility] Serum or plasma creatinine m easurement (mass/volume)Ordered By: Dr. Barrios on 06-20-2022 Creatinine [Mass/Vol] 2.22 mg/dL 0.70-1.30 [facility] Comment on above: The validity of the calculated GFR & GFRAA in patients over 70 years has not been determined. Clinical correlation is essential. Serum or plasma urea nitroge n measurement (mass/volume)Ordered By: Dr. Barrios on 06-20-2022 Urea nitrogen [Mass/Vol] 36 mg/dL 7-18 [facility] Urine creatinine measurement (mass/volume)Ordered By: Dr. Barrios on 06-20-2022 Creatinine (U) [Mass/Vol] 21.80 mg/dL NO RANGE EST. [facility] Urine protein measurement (m ass/volume)Ordered By: Dr. Barrios on 06-20-2022 Protein (U) [Mass/Vol] 78.0 mg/dL 0.0-11.8 [facility] Urine protein/creatinine mas s ratioOrdered By: Dr. Barrios on 06-20-2022 Protein/Creatinine (U) [Mass ratio] 3578 mg/g CRE 0-200 [facility] - Chemistry and C hemistry - challengeOrdered By: Dr. Han on 05-05-2022 Free T4 [Mass/Vol] 0.86 ng/dL 0.76-1.46 [facility] No Panel InformationOrdered By: Dr. Han on 05-05-2022 Thyroid Stimulating Hormone (TSH) 7.47 uIU/mL 0.358-3.74 [facility] Whole blood hemoglobin A1c/t otal hemoglobin ratio (mass fraction)Ordered By: Dr. Han on 05-05-2022 HbA1c (Bld) [Mass fraction] 6.8 % 3.8-5.6 [facility] Comment on above: Normal < 5.7 % Predi abetic 5.7 - 6.4 % Diabetic >or= 6.5 % Please note range changes. Basophil percentageOrdered B y: Dr. Barrios on 03-01-2022 Basophil percentage 3.7 mg/dL 2.5-4.9 [facility] Chloride [Moles/Vol] 106 mmol/L 98-107 [facility] Glucose [Mass/Vol] 124 mg/dL 74-106 [facility] Comment on above: Fasting Glucose resu lt from 100 to 125 mg/dL suggests IMPAIRED HOMEOSTASIS per A.D.A. criteria. Potassium [Moles/Vol] 4.6 mmol/L 3.5-5.1 [facility] Sodium [Moles/Vol] 139 mmol/L 136-145 [facility] WBC (Bld) [#/Vol] 6.7 10*3/uL 4.4-11.0 [facility] Blood erythrocytes count (nu mber/volume)Ordered By: Dr. Barrios on 03-01-2022 RBC (Bld) [#/Vol] 4.17 10*6/uL 4.6-6.2 [facility] Blood hemoglobin measurement (mass/volume)Ordered By: Dr. Barrios on 03-01-2022 Hemoglobin (Bld) [Mass/Vol] 12.8 g/dL 13.0-16.5 [facility] Blood platelet mean volumeOr dered By: Dr. Barrios on 03-01-2022 Platelet mean volume (Bld) [Entitic vol] 9.6 fL 6.2-12.0 [facility] Determination of erythrocyte mean corpuscular volume (MCV)Ordered By: Dr. Barrios on 03-01-2022 MCV (RBC) [Entitic vol] 92.6 fL 80-94 [facility] Hematocrit Auto (Bld) [Volum e fraction]Ordered By: Dr. Barrios on 03-01-2022 Hematocrit (Bld) [Volume fraction] 38.6 % 40-54 [facility] - Chemistry and C hemistry - challengeOrdered By: Dr. Barrios on 03-01-2022 CO2 [Moles/Vol] 25.0 mmol/L 21.0-32.0 [facility] Urea nitrogen/Creatinine [Mass ratio] 16.2 mg/mg 10-20 [facility] - Hematology and Cell countsOrdered By: Dr. Barrios on 03-01-2022 Erythrocyte distribution width (RBC) [Entitic vol] 43.3 fL 35.1-43.9 [facility] Erythrocyte distribution width (RBC) [Ratio] 12.8 % 11.6-14.6 [facility] MCH (RBC) [Entitic mass] 30.7 pg 27.0-32.0 [facility] MCHC Auto (RBC) [Mass/Vol]Or dered By: Dr. Barrios on 03-01-2022 MCHC (RBC) [Mass/Vol] 33.2 g/dL 32-36 [facility] No Panel InformationOrdered By: Dr. Barrios on 03-01-2022 Estimated GFR (MDRD) Amer 34 mL/min >60 [facility] Comment on above: GFR Calc Estimated GFR (MDRD) Non-Af Amer 28 mL/min >60 [facility] Comment on above: Non- GFR Calc Parathyroid Hormone (Intact) 74.7 pg/mL 18.4-80.1 [facility] Vitamin D 25-Hydroxy 41.2 ng/mL [facility] Comment on above: Vitamin D 25(OH) Sta tus Range Deficiency <20 ng/mL (50nmol/L) Insufficiency 20 - 30 ng/mL (50 - 75 nmol/L) Sufficiency 30 - 100 ng/mL (75 - 250 nmol/L) Toxicity >100 ng/mL (>250 nmol/L) Platelets bldOrdered By: Dr. Barrios on 03-01-2022 Platelets (Bld) [#/Vol] 212 10*3/uL 150-450 [facility] Serum or plasma albumin priyanka urement (mass/volume)Ordered By: Dr. Barrios on 03-01-2022 Albumin [Mass/Vol] 3.1 g/dL 3.2-5.0 [facility] Serum or plasma calcium priyanka urement (mass/volume)Ordered By: Dr. Barrios on 03-01-2022 Calcium [Mass/Vol] 8.5 mg/dL 8.5-10.1 [facility] Serum or plasma creatinine m easurement (mass/volume)Ordered By: Dr. Barrios on 03-01-2022 Creatinine [Mass/Vol] 2.47 mg/dL 0.70-1.30 [facility] Comment on above: The validity of the calculated GFR & GFRAA in patients over 70 years has not been determined. Clinical correlation is essential. Serum or plasma urea nitroge n measurement (mass/volume)Ordered By: Dr. Barrios on 03-01-2022 Urea nitrogen [Mass/Vol] 40 mg/dL 7-18 [facility] Urine creatinine measurement (mass/volume)Ordered By: Dr. Barrios on 03-01-2022 Creatinine (U) [Mass/Vol] 24.40 mg/dL NO RANGE EST. [facility] Urine protein measurement (m ass/volume)Ordered By: Dr. Barrios on 03-01-2022 Protein (U) [Mass/Vol] 64.1 mg/dL 0.0-11.8 [facility] Urine protein/creatinine mas s ratioOrdered By: Dr. Barrios on 03-01-2022 Protein/Creatinine (U) [Mass ratio] 2627 mg/g CRE 0-200 [facility] Absolute lymphocyte countOrd ered By: Dr. Han on 01-24-2022 Lymphocytes Auto (Unsp spec) [#/Vol] 1.17 10*3/uL 0.83-4.51 [facility] Basophil percentageOrdered B y: Dr. Han on 01-24-2022 Basophil percentage 3.8 mg/dL 2.5-4.9 [facility] Basophils/100 WBC (Bld) 0.5 % 0-1 [facility] Bilirubin [Mass/Vol] 0.40 mg/dL 0.20-1.00 [facility] Comment on above: For patients on eltr ombopag therapy, use of Dimension [place] TBIL is not recommended. Chloride [Moles/Vol] 102 mmol/L 98-107 [facility] Cholesterol [Mass/Vol] 117 mg/dL <200 [facility] Comment on above: <200 mg/dL Desirable 200-240 mg/dL Borderline >240 mg/dL High Risk Eosinophils/100 WBC (Bld) 4.5 % 0-5 [facility] Glucose [Mass/Vol] 89 mg/dL 74-106 [facility] Neutrophils (Bld) [#/Vol] 5.6 10*3/uL 2.0-7.7 [facility] Neutrophils/100 WBC (Bld) 71.6 % 47-70 [facility] Potassium [Moles/Vol] 4.4 mmol/L 3.5-5.1 [facility] Protein [Mass/Vol] 6.8 g/dL 6.4-8.2 [facility] Sodium [Moles/Vol] 137 mmol/L 136-145 [facility] Triglyceride [Mass/Vol] 103 mg/dL <199 [facility] Comment on above: The drugs N-Acetylcy steine and Metamizole may falsely depress this assay.Serum Triglycerides Reference Interval Normal <150 mg/dL Borderline high 150 - 199 mg/dL High 200 - 499 mg/dL Very High > or = 500 mg/dL WBC (Bld) [#/Vol] 7.8 10*3/uL 4.4-11.0 [facility] Blood erythrocytes count (nu mber/volume)Ordered By: Dr. Han on 01-24-2022 RBC (Bld) [#/Vol] 4.50 10*6/uL 4.6-6.2 [facility] Blood hemoglobin measurement (mass/volume)Ordered By: Dr. Han on 01-24-2022 Hemoglobin (Bld) [Mass/Vol] 13.7 g/dL 13.0-16.5 [facility] Blood lymphocytes/100 leukoc ytesOrdered By: Dr. Han on 01-24-2022 Lymphocytes/100 WBC (Bld) 14.9 % 19-41 [facility] Blood monocytes/100 leukocyt esOrdered By: Dr. Han on 01-24-2022 Monocytes/100 WBC (Bld) 8.0 % 0-10 [facility] Blood platelet mean volumeOr dered By: Dr. Han on 01-24-2022 Platelet mean volume (Bld) [Entitic vol] 9.1 fL 6.2-12.0 [facility] Determination of erythrocyte mean corpuscular volume (MCV)Ordered By: Dr. Han on 01-24-2022 MCV (RBC) [Entitic vol] 93.6 fL 80-94 [facility] Hematocrit Auto (Bld) [Volum e fraction]Ordered By: Dr. Han on 01-24-2022 Hematocrit (Bld) [Volume fraction] 42.1 % 40-54 [facility] - Chemistry and C hemistry - challengeOrdered By: Dr. Han on 01-24-2022 ALP [Catalytic activity/Vol] 121 U/L 45-117 [facility] ALT [Catalytic activity/Vol] 31 U/L 16-61 [facility] CO2 [Moles/Vol] 27.0 mmol/L 21.0-32.0 [facility] Free T4 [Mass/Vol] 0.93 ng/dL 0.76-1.46 [facility] Globulin (S) [Mass/Vol] 3.6 g/dL 2.2-4.2 [facility] Urea nitrogen/Creatinine [Mass ratio] 14.5 mg/mg 10-20 [facility] - Hematology and Cell countsOrdered By: Dr. Han on 01-24-2022 Erythrocyte distribution width (RBC) [Entitic vol] 45.1 fL 35.1-43.9 [facility] Erythrocyte distribution width (RBC) [Ratio] 13.2 % 11.6-14.6 [facility] Immature granulocytes/100 WBC (Bld) 0.500 % 0.0-0.9 [facility] Comment on above: IG% - Immature Granu locytes (promyelocytes, myelocytes and metamyelocytes) > 1% indicates that a LEFT SHIFT is Present. MCH (RBC) [Entitic mass] 30.4 pg 27.0-32.0 [facility] Nucleated RBC/100 WBC (Bld) [Ratio] 0 % 0-5 [facility] MCHC Auto (RBC) [Mass/Vol]Or dered By: Dr. Han on 01-24-2022 MCHC (RBC) [Mass/Vol] 32.5 g/dL 32-36 [facility] No Panel InformationOrdered By: Dr. Han on 01-24-2022 Estimated GFR (MDRD) Amer 40 mL/min >60 [facility] Comment on above: GFR Calc Estimated GFR (MDRD) Non-Af Amer 33 mL/min >60 [facility] Comment on above: Non- GFR Calc Thyroid Stimulating Hormone (TSH) 3.90 uIU/mL 0.358-3.74 [facility] Urine Microalbumin/Creatinine Ratio 2435.7 mg/g CRE <30 [facility] Vitamin D 25-Hydroxy 37.2 ng/mL [facility] Comment on above: Vitamin D 25(OH) Sta tus Range Deficiency <20 ng/mL (50nmol/L) Insufficiency 20 - 30 ng/mL (50 - 75 nmol/L) Sufficiency 30 - 100 ng/mL (75 - 250 nmol/L) Toxicity >100 ng/mL (>250 nmol/L) Platelets bldOrdered By: Dr. Han on 01-24-2022 Platelets (Bld) [#/Vol] 221 10*3/uL 150-450 [facility] Serum or plasma albumin priyanka urement (mass/volume)Ordered By: Dr. Han on 01-24-2022 Albumin [Mass/Vol] 3.2 g/dL 3.2-5.0 [facility] Serum or plasma albumin/glob ulin mass ratioOrdered By: Dr. Han on 01-24-2022 Albumin/Globulin [Mass ratio] 0.9 {ratio} 0.9-2.4 [facility] Serum or plasma calcium priyanka urement (mass/volume)Ordered By: Dr. Han on 01-24-2022 Calcium [Mass/Vol] 8.9 mg/dL 8.5-10.1 [facility] [facility] Serum or plasma cholesterol in HDL measurement (mass/volume)Ordered By: Dr. Han on 01-24-2022 Cholesterol in HDL [Mass/Vol] 51 mg/dL >40 [facility] Comment on above: The drugs N-Acetylcy steine and Metamizole may falsely depress this assay. Reference Range HDL <40 mg/dL Low HDL Cholesterol HDL >or= 60 mg/dL High HDL Cholesterol Serum or plasma cholesterol in VLDL measurement (mass/volume)Ordered By: Dr. Han on 01-24-2022 Cholesterol in VLDL [Mass/Vol] 21 mg/dL 5-40 [facility] Serum or plasma creatinine m easurement (mass/volume)Ordered By: Dr. Han on 01-24-2022 Creatinine [Mass/Vol] 2.14 mg/dL 0.70-1.30 [facility] Comment on above: The validity of the calculated GFR & GFRAA in patients over 70 years has not been determined. Clinical correlation is essential. Serum or plasma low density lipoprotein (LDL) cholesterol measurement (mass/volume)Ordered By: Dr. Han on 01-24-2022 Cholesterol in LDL [Mass/Vol] 45 mg/dL 0-130 [facility] Serum or plasma urea nitroge n measurement (mass/volume)Ordered By: Dr. Han on 01-24-2022 Urea nitrogen [Mass/Vol] 31 mg/dL 7-18 [facility] Thin prep Papanicolaou smear with manual screeningOrdered By: Dr. Han on 01-24-2022 Thin prep Papanicolaou smear with manual screening 22 U/L 15-37 [facility] Thin prep Papanicolaou smear with manual screening 8 5-15 [facility] Thin prep Papanicolaou smear with manual screening 1420.0 mg/L NO RANGE EST. [facility] Urine creatinine measurement (mass/volume)Ordered By: Dr. Han on 01-24-2022 Creatinine (U) [Mass/Vol] 58.30 mg/dL NO RANGE EST. [facility] Urine protein measurement (m ass/volume)Ordered By: Dr. Han on 01-24-2022 Protein (U) [Mass/Vol] 164.7 mg/dL 0.0-11.8 [facility] Urine protein/creatinine mas s ratioOrdered By: Dr. Han on 01-24-2022 Protein/Creatinine (U) [Mass ratio] 2825 mg/g CRE 0-200 [facility] Whole blood hemoglobin A1c/t otal hemoglobin ratio (mass fraction)Ordered By: Dr. Han on 01-24-2022 HbA1c (Bld) [Mass fraction] 6.7 % 3.8-5.6 [facility] Comment on above: Normal < 5.7 % Predi abetic 5.7 - 6.4 % Diabetic >or= 6.5 % Please note range changes. Basophil percentageOrdered B y: Dr. Barrios on 12-23-2021 Basophil percentage 3.4 mg/dL 2.5-4.9 [facility] Chloride [Moles/Vol] 105 mmol/L 98-107 [facility] Glucose [Mass/Vol] 93 mg/dL 74-106 [facility] Potassium [Moles/Vol] 4.3 mmol/L 3.5-5.1 [facility] Sodium [Moles/Vol] 141 mmol/L 136-145 [facility] Laboratory - Chemistry and C hemistry - challengeOrdered By: Dr. Barrios on 12-23-2021 CO2 [Moles/Vol] 29.0 mmol/L 21.0-32.0 [facility] Urea nitrogen/Creatinine [Mass ratio] 14.2 mg/mg 10- [facility] No Panel InformationOrdered By: Dr. Barrios on 12-23-2021 Estimated GFR (MDRD) Amer 35 mL/min >60 [facility] Comment on above: GFR Calc Estimated GFR (MDRD) Non-Af Amer 29 mL/min >60 [facility] Comment on above: Non- GFR Calc Serum or plasma albumin priyanka urement (mass/volume)Ordered By: Dr. Barrios on 12-23-2021 Albumin [Mass/Vol] 3.2 g/dL 3.2-5.0 [facility] Serum or plasma calcium priyanka urement (mass/volume)Ordered By: Dr. Barrios on 12-23-2021 Calcium [Mass/Vol] 9.1 mg/dL 8.5-10.1 [facility] Serum or plasma creatinine m easurement (mass/volume)Ordered By: Dr. Barrios on 12-23-2021 Creatinine [Mass/Vol] 2.39 mg/dL 0.70-1.30 [facility] Comment on above: The validity of the calculated GFR & GFRAA in patients over 70 years has not been determined. Clinical correlation is essential. Serum or plasma urea nitroge n measurement (mass/volume)Ordered By: Dr. Barrios on 12-23-2021 Urea nitrogen [Mass/Vol] 34 mg/dL 7-18 [facility] 24 hour urine protein measur ement (mass/time)Ordered By: Dr. Barrios on 11-22-2021 Protein (24H U) [Mass/Time] 2988.4 mg/24HR 0-151 [facility] 24 hour urine protein measur ement (mass/volume)Ordered By: Dr. Barrios on 11-22-2021 Protein (24H U) [Mass/Vol] 101.3 mg/dL 0.0-11.8 [facility] 24 hour urine specimen volum e measurementOrdered By: Dr. Barrios on 11-22-2021 Specimen volume (24H U) 2.95 [facility] Basophil percentageOrdered B y: Dr. Barrios on 11-22-2021 Basophil percentage 3.3 mg/dL 2.5-4.9 [facility] Chloride [Moles/Vol] 104 mmol/L 98-107 [facility] Glucose [Mass/Vol] 81 mg/dL 74-106 [facility] Potassium [Moles/Vol] 4.4 mmol/L 3.5-5.1 [facility] Sodium [Moles/Vol] 140 mmol/L 136-145 [facility] Creatinine clearanceOrdered By: Dr. Barrios on 11-22-2021 Creatinine renal clearance Unsp time (U+S/P) [Vol/Time] 32 ml/min 100-200 [facility] Laboratory - Chemistry and C hemistry - challengeOrdered By: Dr. Barrios on 11-22-2021 CO2 [Moles/Vol] 28.0 mmol/L 21.0-32.0 [facility] Urea nitrogen/Creatinine [Mass ratio] 13.5 mg/mg 10- [facility] Laboratory - Specimen inform ationOrdered By: Dr. Barrios on 11-22-2021 Collection duration (U) 24.0 HOURS 24.0-24.0 [facility] No Panel InformationOrdered By: Dr. Barrios on 11-22-2021 Estimated GFR (MDRD) Amer 37 mL/min >60 [facility] Comment on above: GFR Calc Estimated GFR (MDRD) Non-Af Amer 30 mL/min >60 [facility] Comment on above: Non- GFR Calc Serum or plasma albumin priyanka urement (mass/volume)Ordered By: Dr. Barrios on 11-22-2021 Albumin [Mass/Vol] 3.1 g/dL 3.2-5.0 [facility] Serum or plasma calcium priyanka urement (mass/volume)Ordered By: Dr. Barrios on 11-22-2021 Calcium [Mass/Vol] 8.9 mg/dL 8.5-10.1 [facility] Serum or plasma creatinine m easurement (mass/volume)Ordered By: Dr. Barrios on 11-22-2021 Creatinine [Mass/Vol] 2.30 mg/dL 0.70-1.30 [facility] Comment on above: The validity of the calculated GFR & GFRAA in patients over 70 years has not been determined. Clinical correlation is essential. Serum or plasma urea nitroge n measurement (mass/volume)Ordered By: Dr. Barrios on 11-22-2021 Urea nitrogen [Mass/Vol] 31 mg/dL - [facility] Urine creatinine measurement (mass/volume)Ordered By: Dr. Barrios on 11-22-2021 Creatinine (U) [Mass/Vol] 35.5 mg/dL NO RANGE EST. [facility] Absolute lymphocyte counton 10-26-2021 Lymphocytes Auto (Unsp spec) [#/Vol] 1.11 10*3/uL 0.83-4.51 [facility] Work Phone: Basophil percentageon 2021 Basophils/100 WBC (Bld) 0.7 % 0-1 [facility] Work Phone: [phone] Bilirubin [Mass/Vol] 0.40 mg/dL 0.20-1.00 [facility] Work Phone: [phone] Comment on above: For patients on eltr ombopag therapy, use of Dimension [place] TBIL is not recommended. Chloride [Moles/Vol] 103 mmol/L 98-107 [facility] Work Phone: [phone] Cholesterol [Mass/Vol] 111 mg/dL <200 [facility] Work Phone: [phone] Comment on above: <200 mg/dL Desirable 200-240 mg/dL Borderline >240 mg/dL High Risk Eosinophils/100 WBC (Bld) 4.5 % 0-5 [facility] Work Phone: Glucose [Mass/Vol] 70 mg/dL 74-106 [facility] Work Phone: Neutrophils (Bld) [#/Vol] 5.1 10*3/uL 2.0-7.7 [facility] Work Phone: Neutrophils/100 WBC (Bld) 70.6 % 47-70 [facility] Work Phone: Potassium [Moles/Vol] 4.4 mmol/L 3.5-5.1 [facility] Work Phone: Protein [Mass/Vol] 6.7 g/dL 6.4-8.2 [facility] Work Phone: Sodium [Moles/Vol] 138 mmol/L 136-145 [facility] Work Phone: Triglyceride [Mass/Vol] 72 mg/dL <199 [facility] Work Phone: [phone] Comment on above: The drugs N-Acetylcy steine and Metamizole may falsely depress this assay.Serum Triglycerides Reference Interval Normal <150 mg/dL Borderline high 150 - 199 mg/dL High 200 - 499 mg/dL Very High > or = 500 mg/dL WBC (Bld) [#/Vol] 7.2 10*3/uL 4.4-11.0 [facility] Work Phone: [phone] Blood erythrocytes count (nu mber/volume)on 10-26-2021 RBC (Bld) [#/Vol] 4.51 10*6/uL 4.6-6.2 [facility] [phone] Blood hemoglobin measurement (mass/volume)on 10-26-2021 Hemoglobin (Bld) [Mass/Vol] 14.0 g/dL 13.0-16.5 [facility] Work Phone: Blood lymphocytes/100 leukoc yteson 10-26-2021 Lymphocytes/100 WBC (Bld) 15.5 % 19-41 [facility] Work Phone: Blood monocytes/100 leukocyt eson 10-26-2021 Monocytes/100 WBC (Bld) 8.6 % 0-10 [facility] Work Phone: Blood platelet mean volumeon 10-26-2021 Platelet mean volume (Bld) [Entitic vol] 9.1 fL 6.2-12.0 [facility] Work Phone: Determination of erythrocyte mean corpuscular volume (MCV)on 10-26-2021 MCV (RBC) [Entitic vol] 93.8 fL 80-94 [facility] Work Phone: [phone] Hematocrit Auto (Bld) [Volum e fraction]on 10-26-2021 Hematocrit (Bld) [Volume fraction] 42.3 % 40-54 [facility] Work Phone: [phone] Laboratory - Chemistry and C hemistry - challengeon 10-26-2021 ALP [Catalytic activity/Vol] 114 U/L 45-117 [facility] Work Phone: [phone] ALT [Catalytic activity/Vol] 37 U/L 16-61 [facility] Work Phone: [phone] CO2 [Moles/Vol] 30.0 mmol/L 21.0-32.0 [facility] Work Phone: Free T4 [Mass/Vol] 0.97 ng/dL 0.76-1.46 [facility] Work Phone: Globulin (S) [Mass/Vol] 3.5 g/dL 2.2-4.2 [facility] Work Phone: Urea nitrogen/Creatinine [Mass ratio] 14.8 mg/mg 10-20 [facility] Work Phone: Laboratory - Hematology and Cell countson 10-26-2021 Erythrocyte distribution width (RBC) [Entitic vol] 44.3 fL 35.1-43.9 [facility] Work Phone: Erythrocyte distribution width (RBC) [Ratio] 13.0 % 11.6-14.6 [facility] Work Phone: Immature granulocytes/100 WBC (Bld) 0.100 % 0.0-0.9 [facility] Work Phone: Comment on above: IG% - Immature Granu locytes (promyelocytes, myelocytes and metamyelocytes) > 1% indicates that a LEFT SHIFT is Present. MCH (RBC) [Entitic mass] 31.0 pg 27.0-32.0 [facility] Work Phone: Nucleated RBC/100 WBC (Bld) [Ratio] 0 % 0-5 [facility] Work Phone: MCHC Auto (RBC) [Mass/Vol]on 10-26-2021 MCHC (RBC) [Mass/Vol] 33.1 g/dL 32-36 [facility] Work Phone: No Panel Informationon 10-26 Estimated GFR (MDRD) Amer 38 mL/min >60 [facility] Work Phone: Comment on above: GFR Calc Estimated GFR (MDRD) Non-Af Amer 31 mL/min >60 [facility] Work Phone: Comment on above: Non- GFR Calc Thyroid Stimulating Hormone (TSH) 3.43 uIU/mL 0.358-3.74 [facility] Work Phone: Urine Microalbumin/Creatinine Ratio 3245.7 mg/g CRE <30 [facility] Work Phone: [phone] Platelets bldon 10-26-2021 Platelets (Bld) [#/Vol] 196 10*3/uL 150-450 [facility] Work Phone: Serum or plasma albumin priyanka urement (mass/volume)on 10-26-2021 Albumin [Mass/Vol] 3.2 g/dL 3.2-5.0 [facility] Work Phone: Serum or plasma albumin/glob ulin mass ratioon 10-26-2021 Albumin/Globulin [Mass ratio] 0.9 {ratio} 0.9-2.4 [facility] Work Phone: Serum or plasma calcium priyanka urement (mass/volume)on 10-26-2021 Calcium [Mass/Vol] 9.1 mg/dL 8.5-10.1 [facility] Work Phone: Serum or plasma cholesterol in HDL measurement (mass/volume)on 10-26-2021 Cholesterol in HDL [Mass/Vol] 47 mg/dL >40 [facility] Work Phone: Comment on above: The drugs N-Acetylcy steine and Metamizole may falsely depress this assay. Reference Range HDL <40 mg/dL Low HDL Cholesterol HDL >or= 60 mg/dL High HDL Cholesterol Serum or plasma cholesterol in VLDL measurement (mass/volume)on 10-26-2021 Cholesterol in VLDL [Mass/Vol] 14 mg/dL 5-40 [facility] Work Phone: Serum or plasma creatinine m easurement (mass/volume)on 10-26-2021 Creatinine [Mass/Vol] 2.23 mg/dL 0.70-1.30 [facility] Work Phone: Comment on above: The validity of the calculated GFR & GFRAA in patients over 70 years has not been determined. Clinical correlation is essential. Serum or plasma low density lipoprotein (LDL) cholesterol measurement (mass/volume)on 10-26-2021 Cholesterol in LDL [Mass/Vol] 50 mg/dL 0-130 [facility] Work Phone: Serum or plasma urea nitroge n measurement (mass/volume)on 10-26-2021 Urea nitrogen [Mass/Vol] 33 mg/dL 7-18 [facility] Work Phone: Serum or plasma uric acid me asurement (mass/volume)on 10-26-2021 Urate [Mass/Vol] 3.5 mg/dL 3.5-7.2 [facility] Work Phone: Comment on above: The drugs N-Acetylcy steine and Metamizole may falsely depress this assay. Thin prep Papanicolaou smear with manual screeningon 10-26-2021 Thin prep Papanicolaou smear with manual screening 25 U/L 15-37 [facility] Work Phone: Thin prep Papanicolaou smear with manual screening 5 5-15 [facility] Work Phone: Thin prep Papanicolaou smear with manual screening 568.0 mg/L NO RANGE EST. [facility] Work Phone: Urine creatinine measurement (mass/volume)on 10-26-2021 Creatinine (U) [Mass/Vol] 17.50 mg/dL NO RANGE EST. [facility] Work Phone: Whole blood hemoglobin A1c/t otal hemoglobin ratio (mass fraction)on 10-26-2021 HbA1c (Bld) [Mass fraction] 6.4 % 3.8-5.6 [facility] Work Phone: Comment on above: Normal < 5.7 % Predi abetic 5.7 - 6.4 % Diabetic >or= 6.5 % Please note range changes. Basophil percentageon 2021 Bilirubin [Mass/Vol] 0.30 mg/dL 0.20-1.00 [facility] Work Phone: Comment on above: For patients on eltr ombopag therapy, use of Dimension [place] TBIL is not recommended. Chloride [Moles/Vol] 107 mmol/L 98-107 [facility] Work Phone: Cholesterol [Mass/Vol] 121 mg/dL <200 [facility] Work Phone: Comment on above: <200 mg/dL Desirable 200-240 mg/dL Borderline >240 mg/dL High Risk Glucose [Mass/Vol] 123 mg/dL 74-106 [facility] Work Phone: Comment on above: Fasting Glucose resu lt from 100 to 125 mg/dL suggests IMPAIRED HOMEOSTASIS per A.D.A. criteria. Potassium [Moles/Vol] 4.5 mmol/L 3.5-5.1 [facility] Work Phone: Protein [Mass/Vol] 6.4 g/dL 6.4-8.2 [facility] Work Phone: Sodium [Moles/Vol] 139 mmol/L 136-145 [facility] Work Phone: Triglyceride [Mass/Vol] 132 mg/dL <199 [facility] Work Phone: Comment on above: The drugs N-Acetylcy steine and Metamizole may falsely depress this assay.Serum Triglycerides Reference Interval Normal <150 mg/dL Borderline high 150 - 199 mg/dL High 200 - 499 mg/dL Very High > or = 500 mg/dL Laboratory - Chemistry and C hemistry - challengeon 07-22-2021 ALP [Catalytic activity/Vol] 98 U/L 45-117 [facility] Work Phone: ALT [Catalytic activity/Vol] 28 U/L 16-61 [facility] Work Phone: CO2 [Moles/Vol] 29.0 mmol/L 21.0-32.0 [facility] Work Phone: Globulin (S) [Mass/Vol] 3.4 g/dL 2.2-4.2 [facility] Work Phone: Urea nitrogen/Creatinine [Mass ratio] 18.1 mg/mg 10-20 [facility] Work Phone: No Panel Informationon 07-22 Estimated GFR (MDRD) Amer 43 mL/min >60 [facility] Work Phone: Comment on above: GFR Calc Estimated GFR (MDRD) Non-Af Amer 36 mL/min >60 [facility] Work Phone: Comment on above: Non- GFR Calc Thyroid Stimulating Hormone (TSH) 1.44 uIU/mL 0.358-3.74 [facility] Work Phone: Serum or plasma albumin priyanka urement (mass/volume)on 07-22-2021 Albumin [Mass/Vol] 3.0 g/dL 3.2-5.0 [facility] Work Phone: Serum or plasma albumin/glob ulin mass ratioon 07-22-2021 Albumin/Globulin [Mass ratio] 0.9 {ratio} 0.9-2.4 [facility] Work Phone: Serum or plasma calcium priyanka urement (mass/volume)on 07-22-2021 Calcium [Mass/Vol] 8.4 mg/dL 8.5-10.1 [facility] Work Phone: Serum or plasma cholesterol in HDL measurement (mass/volume)on 07-22-2021 Cholesterol in HDL [Mass/Vol] 47 mg/dL >40 [facility] Work Phone: Comment on above: The drugs N-Acetylcy steine and Metamizole may falsely depress this assay. Reference Range HDL <40 mg/dL Low HDL Cholesterol HDL >or= 60 mg/dL High HDL Cholesterol Serum or plasma cholesterol in VLDL measurement (mass/volume)on 07-22-2021 Cholesterol in VLDL [Mass/Vol] 26 mg/dL 5-40 [facility] Work Phone: Serum or plasma creatinine m easurement (mass/volume)on 07-22-2021 Creatinine [Mass/Vol] 1.99 mg/dL 0.70-1.30 [facility] Work Phone: Comment on above: The validity of the calculated GFR & GFRAA in patients over 70 years has not been determined. Clinical correlation is essential. Serum or plasma low density lipoprotein (LDL) cholesterol measurement (mass/volume)on 07-22-2021 Cholesterol in LDL [Mass/Vol] 48 mg/dL 0-130 [facility] Work Phone: Serum or plasma urea nitroge n measurement (mass/volume)on 07-22-2021 Urea nitrogen [Mass/Vol] 36 mg/dL 7-18 [facility] Work Phone: Thin prep Papanicolaou smear with manual screeningon 07-22-2021 Thin prep Papanicolaou smear with manual screening 23 U/L 15-37 [facility] Work Phone: Thin prep Papanicolaou smear with manual screening 3 5-15 [facility] Work Phone: Whole blood hemoglobin A1c/t otal hemoglobin ratio (mass fraction)on 07-22-2021 HbA1c (Bld) [Mass fraction] 6.7 % 3.8-5.6 [facility] Work Phone: Comment on above: Normal < 5.7 % Predi abetic 5.7 - 6.4 % Diabetic >or= 6.5 % Please note range changes. Absolute lymphocyte counton 04-22-2021 Lymphocytes Auto (Unsp spec) [#/Vol] 1.08 10*3/uL 0.83-4.51 [facility] Work Phone: Basophil percentageon 2021 Basophils/100 WBC (Bld) 0.8 % 0-1 [facility] Work Phone: Bilirubin [Mass/Vol] 0.30 mg/dL 0.20-1.00 [facility] Work Phone: Comment on above: For patients on eltr ombopag therapy, use of Dimension [place] TBIL is not recommended. Chloride [Moles/Vol] 106 mmol/L 98-107 [facility] Work Phone: Cholesterol [Mass/Vol] 122 mg/dL <200 [facility] Work Phone: Comment on above: <200 mg/dL Desirable 200-240 mg/dL Borderline >240 mg/dL High Risk Eosinophils/100 WBC (Bld) 3.3 % 0-5 [facility] Work Phone: Glucose [Mass/Vol] 126 mg/dL 74-106 [facility] Work Phone: Comment on above: Fasting Glucose resu lt greater than or equal to 126 mg/dL suggests DIABETES MELLITUS per A.D.A. criteria. Neutrophils (Bld) [#/Vol] 4.5 10*3/uL 2.0-7.7 [facility] Work Phone: [phone] Neutrophils/100 WBC (Bld) 69.6 % 47-70 [facility] Work Phone: [phone] Potassium [Moles/Vol] 4.9 mmol/L 3.5-5.1 [facility] Work Phone: [phone] Protein [Mass/Vol] 6.4 g/dL 6.4-8.2 [facility] Work Phone: [phone] Sodium [Moles/Vol] 137 mmol/L 136-145 [facility] Work Phone: Triglyceride [Mass/Vol] 115 mg/dL [facility] Work Phone: Comment on above: The drugs N-Acetylcy steine and Metamizole may falsely depress this assay.Serum Triglycerides Reference Interval Normal <150 mg/dL Borderline high 150 - 199 mg/dL High 200 - 499 mg/dL Very High > or = 500 mg/dL WBC (Bld) [#/Vol] 6.4 10*3/uL 4.4-11.0 [facility] Work Phone: Blood erythrocytes count (nu mber/volume)on 04-22-2021 RBC (Bld) [#/Vol] 4.15 10*6/uL 4.6-6.2 [facility] Work Phone: Blood hemoglobin measurement (mass/volume)on 04-22-2021 Hemoglobin (Bld) [Mass/Vol] 12.7 g/dL 13.0-16.5 [facility] Work Phone: Blood lymphocytes/100 leukoc yteson 04-22-2021 Lymphocytes/100 WBC (Bld) 16.9 % 19-41 [facility] Work Phone: Blood monocytes/100 leukocyt eson 04-22-2021 Monocytes/100 WBC (Bld) 9.1 % 0-10 [facility] Work Phone: Blood platelet mean volumeon 04-22-2021 Platelet mean volume (Bld) [Entitic vol] 8.9 fL 6.2-12.0 [facility] Work Phone: Determination of erythrocyte mean corpuscular volume (MCV)on 04-22-2021 MCV (RBC) [Entitic vol] 90.6 fL 80-94 [facility] Work Phone: Hematocrit Auto (Bld) [Volum e fraction]on 04-22-2021 Hematocrit (Bld) [Volume fraction] 37.6 % 40-54 [facility] Work Phone: [phone] Laboratory - Chemistry and C hemistry - challengeon 04-22-2021 ALP [Catalytic activity/Vol] 114 U/L 45-117 [facility] Work Phone: [phone] ALT [Catalytic activity/Vol] 29 U/L 16-61 [facility] Work Phone: [phone] CO2 [Moles/Vol] 28.0 mmol/L 21.0-32.0 [facility] Work Phone: [phone] Free T4 [Mass/Vol] 0.98 ng/dL 0.76-1.46 [facility] Work Phone: Globulin (S) [Mass/Vol] 3.3 g/dL 2.2-4.2 [facility] Work Phone: [phone] Urea nitrogen/Creatinine [Mass ratio] 14.2 mg/mg 10-20 [facility] Work Phone: [phone] Laboratory - Hematology and Cell countson 04-22-2021 Erythrocyte distribution width (RBC) [Entitic vol] 42.7 fL 35.1-43.9 [facility] Work Phone: Erythrocyte distribution width (RBC) [Ratio] 13.2 % 11.6-14.6 [facility] Work Phone: Immature granulocytes/100 WBC (Bld) 0.300 % 0.0-0.9 [facility] Work Phone: Comment on above: IG% - Immature Granu locytes (promyelocytes, myelocytes and metamyelocytes) > 1% indicates that a LEFT SHIFT is Present. MCH (RBC) [Entitic mass] 30.6 pg 27.0-32.0 [facility] Work Phone: Nucleated RBC/100 WBC (Bld) [Ratio] 0 % 0-5 [facility] Work Phone: MCHC Auto (RBC) [Mass/Vol]on 04-22-2021 MCHC (RBC) [Mass/Vol] 33.8 g/dL 32-36 [facility] Work Phone: No Panel Informationon 04-22 Estimated GFR (MDRD) Amer 39 mL/min >60 [facility] Work Phone: Comment on above: GFR Calc Estimated GFR (MDRD) Non-Af Amer 32 mL/min >60 [facility] Work Phone: Comment on above: Non- GFR Calc Thyroid Stimulating Hormone (TSH) 4.84 uIU/mL 0.358-3.74 [facility] Work Phone: Vitamin D 25-Hydroxy 31.6 ng/mL [facility] Work Phone: Comment on above: Vitamin D 25(OH) Sta tus Range Deficiency <20 ng/mL (50nmol/L) Insufficiency 20 - 30 ng/mL (50 - 75 nmol/L) Sufficiency 30 - 100 ng/mL (75 - 250 nmol/L) Toxicity >100 ng/mL (>250 nmol/L) Platelets bldon 04-22-2021 Platelets (Bld) [#/Vol] 193 10*3/uL 150-450 [facility] Work Phone: Serum or plasma albumin priyanka urement (mass/volume)on 04-22-2021 Albumin [Mass/Vol] 3.1 g/dL 3.2-5.0 [facility] Work Phone: Serum or plasma albumin/glob ulin mass ratioon 04-22-2021 Albumin/Globulin [Mass ratio] 0.9 {ratio} 0.9-2.4 [facility] Work Phone: Serum or plasma calcium priyanka urement (mass/volume)on 04-22-2021 Calcium [Mass/Vol] 9.0 mg/dL 8.5-10.1 [facility] Work Phone: Serum or plasma cholesterol in HDL measurement (mass/volume)on 04-22-2021 Cholesterol in HDL [Mass/Vol] 39 mg/dL [facility] Work Phone: Comment on above: The drugs N-Acetylcy steine and Metamizole may falsely depress this assay. Reference Range HDL <40 mg/dL Low HDL Cholesterol HDL >or= 60 mg/dL High HDL Cholesterol Serum or plasma cholesterol in VLDL measurement (mass/volume)on 04-22-2021 Cholesterol in VLDL [Mass/Vol] 23 mg/dL 5-40 [facility] Work Phone: Serum or plasma creatinine m easurement (mass/volume)on 04-22-2021 Creatinine [Mass/Vol] 2.19 mg/dL 0.70-1.30 [facility] Work Phone: Comment on above: The validity of the calculated GFR & GFRAA in patients over 70 years has not been determined. Clinical correlation is essential. Serum or plasma low density lipoprotein (LDL) cholesterol measurement (mass/volume)on 04-22-2021 Cholesterol in LDL [Mass/Vol] 60 mg/dL 0-130 [facility] Work Phone: Serum or plasma urea nitroge n measurement (mass/volume)on 04-22-2021 Urea nitrogen [Mass/Vol] 31 mg/dL 7-18 [facility] Work Phone: Thin prep Papanicolaou smear with manual screeningon 04-22-2021 Thin prep Papanicolaou smear with manual screening 21 U/L 15-37 [facility] Work Phone: Thin prep Papanicolaou smear with manual screening 3 5-15 [facility] Work Phone: Urine creatinine measurement (mass/volume)on 04-22-2021 Creatinine (U) [Mass/Vol] 47.90 mg/dL NO RANGE EST. [facility] Work Phone: Urine protein measurement (m ass/volume)on 04-22-2021 Protein (U) [Mass/Vol] 124.7 mg/dL 0.0-11.8 [facility] Work Phone: Urine protein/creatinine mas s ratioon 04-22-2021 Protein/Creatinine (U) [Mass ratio] 2603 mg/g CRE 0-200 [facility] Work Phone: Whole blood hemoglobin A1c/t otal hemoglobin ratio (mass fraction)on 04-22-2021 HbA1c (Bld) [Mass fraction] 7.0 % 3.8-5.6 [facility] Work Phone: Comment on above: Normal < 5.7 % Predi abetic 5.7 - 6.4 % Diabetic >or= 6.5 % Please note range changes. Vital Signs Date Time Vital Sign Value Performing Clinician Facility 08-05-2024 08:02-0400 Body height 177.8 cm Elena Jordan MD Work Phone: [facility] 08-05-2024 08:02-0400 Body mass index (BMI) [Ratio] 25.83 kg/m2 Elena Jordan MD Work Phone: [facility] 08-05-2024 08:02-0400 Body weight 81.65 kg Elena Jordan MD Work Phone: [facility] 08-05-2024 08:02-0400 Diastolic blood pressure 60 mm[Hg] Elena Jordan MD Work Phone: [facility] 08-05-2024 08:02-0400 Heart rate 52 /min Elena Jordan MD Work Phone: [facility] 08-05-2024 08:02-0400 Respiratory rate 12 /min Elena Jordan MD Work Phone: [facility] 08-05-2024 08:02-0400 SaO2% (BldA) [Mass fraction] 99 % Elena Jordan MD Work Phone: [facility] 08-05-2024 08:02-0400 Systolic blood pressure 120 mm[Hg] Eelna Jordan MD Work Phone: [facility] 07-12-2024 14:56-0400 Body height 175.[address] Piedad Han MD Work Phone: [facility] 07-12-2024 14:56-0400 Body mass index (BMI) [Ratio] 27.8 kg/m2 Dr. Piedad Han MD Work Phone: [facility] 07-12-2024 14:56-0400 Body weight 85.[address] Piedad Han MD Work Phone: [facility] 07-12-2024 14:56-0400 Diastolic blood pressure 63 mm[Hg] Dr. Piedad Han MD Work Phone: [facility] 07-12-2024 14:56-0400 Heart rate 50 /min Dr. Piedad Han MD Work Phone: [facility] 07-12-2024 14:56-0400 Respiratory rate 18 /min Dr. Piedad Han MD Work Phone: [facility] 07-12-2024 14:56-0400 Systolic blood pressure 128 mm[Hg] Dr. Piedad Han MD Work Phone: [facility] 06-21-2024 15:29-0400 Body height 175.[address] Piedad Han MD Work Phone: [facility] 06-21-2024 15:29-0400 Body mass index (BMI) [Ratio] 27 kg/m2 Dr. Piedad Han MD Work Phone: [facility] 06-21-2024 15:29-0400 Body weight [address] Piedad Han MD Work Phone: [facility] 06-21-2024 15:29-0400 Diastolic blood pressure 72 mm[Hg] Dr. Piedad Han MD Work Phone: 8(522)215-867755 [place] [address] 06-21-2024 15:29-0400 Heart rate 48 /min Dr. Piedad Han MD Work Phone: [facility] 06-21-2024 15:29-0400 Respiratory rate 16 /min Dr. Piedad Han MD Work Phone: 2(284)672-972660 [address] 06-21-2024 15:29-0400 Systolic blood pressure 148 mm[Hg] Dr. Piedad Han MD Work Phone: 9(530)[phone] [address] 06-07-2024 15:22-0400 Body mass index (BMI) [Ratio] 27 kg/m2 Dr. Piedad Han MD Work Phone: 7(541)[phone] [place] [address] 06-07-2024 15:22-0400 Body weight [address] Piedad Han MD Work Phone: 8(448)[phone] [place] [address] 06-07-2024 15:22-0400 Diastolic blood pressure 84 mm[Hg] Dr. Piedad Han MD Work Phone: [facility] 06-07-2024 15:22-0400 Heart rate 53 /min Dr. Piedad Han MD Work Phone: [facility] 06-07-2024 15:22-0400 Respiratory rate 18 /min Dr. Piedad Han MD Work Phone: [facility] 06-07-2024 15:22-0400 SaO2% (BldA) [Mass fraction] 98 % Dr. Piedad Han MD Work Phone: 0(855)[phone] [place] [address] 06-07-2024 15:22-0400 Systolic blood pressure 154 mm[Hg] Dr. Piedad Han MD Work Phone: [facility] 05-29-2024 11:38-0400 Body mass index (BMI) [Ratio] 25.94 kg/m2 Monica Cioce [employer] DEVELOPER.[employer]UME [employer]APER Work Phone: [facility] 05-29-2024 11:38-0400 Body temperature 98.49 [degF] Monica Cioce [employer] DEVELOPER.[employer]UME [employer]ER Work Phone: [facility] 05-29-2024 11:38-0400 Body weight 83.19 kg Monica Cioce [employer] DEVELOPER.[employer]UME [employer]ER Work Phone: [facility] 05-29-2024 11:38-0400 Heart rate 55 /min Monica Cioce [employer] E[employer] DEVELOPER.[employer]UME [employer]ER Work Phone: [facility] 05-29-2024 11:38-0400 Respiratory rate 14 /min Monica Cioce [employer] DEVELOPER.CO[employer]UME [employer]ER Work Phone: [facility] 05-29-2024 11:38-0400 SaO2% (BldA) [Mass fraction] 98 % Monica Cioce [employer] DEVELOPER.COSTUME [employer]ER Work Phone: [facility] 01-03-2024 11:52-0500 Body height 179.1 cm Yessenia Oconnor DO Work Phone: [facility] 01-03-2024 11:52-0500 Body mass index (BMI) [Ratio] 24.95 kg/m2 Yessenia Gallina DO Work Phone: [facility] 01-03-2024 11:52-0500 Body weight 80 kg Yessenia Gallina DO Work Phone: [facility] 01-03-2024 11:52-0500 Diastolic blood pressure 70 mm[Hg] Yessenia Gallina DO Work Phone: [facility] 01-03-2024 11:52-0500 Heart rate 60 /min Yessenia Oconnor DO Work Phone: [facility] 01-03-2024 11:52-0500 SaO2% (BldA) [Mass fraction] 96 % Yessenia Oconnor DO Work Phone: [facility] 01-03-2024 11:52-0500 Systolic blood pressure 126 mm[Hg] Yessenia Oconnor DO Work Phone: [facility] 11-08-2023 09:41-0400 Body height 175.3 cm Monica Cioce [employer] DEVELOPER.COSTUME [employer]APER Work Phone: [facility] 11-08-2023 09:41-0400 Body mass index (BMI) [Ratio] 26.17 kg/m2 Monica Cioce [employer] DEVELOPER.CO[employer]UME [employer]ER Work Phone: [facility] 11-08-2023 09:41-0400 Body weight 80.38 kg Monica Cioce [employer] DEVELOPER.COSTUME [employer]ER Work Phone: [facility] 11-08-2023 09:41-0400 Heart rate 57 /min Monica Cioce [employer] E[employer] DEVELOPER.COSTUME [employer]ER Work Phone: [facility] 11-08-2023 09:41-0400 Respiratory rate 20 /min Monica Cioce [employer] E[employer] DEVELOPER.COSTUME [employer]APER Work Phone: [facility] 11-08-2023 09:41-0400 SaO2% (BldA) [Mass fraction] 99 % Monica Cioce [employer] E[employer] DEVELOPER.COSTUME [employer]APER Work Phone: [facility] 10-24-2023 08:53-0400 Diastolic blood pressure 71 mm[Hg] Carolee Mack MD Work Phone: [facility] 10-24-2023 08:53-0400 Heart rate 56 /min Carolee Mack MD Work Phone: [facility] 10-24-2023 08:53-0400 Respiratory rate 16 /min Carolee Mack MD Work Phone: [facility] 10-24-2023 08:53-0400 SaO2% (BldA) [Mass fraction] 98 % Carolee Mack MD Work Phone: [facility] 10-24-2023 08:53-0400 Systolic blood pressure 133 mm[Hg] Carolee Mack MD Work Phone: [facility] 10-24-2023 07:09-0400 Body mass index (BMI) [Ratio] 27.05 kg/m2 Carolee Mack MD Work Phone: [facility] 10-24-2023 07:09-0400 Body temperature 97.2 [degF] Carolee Mack MD Work Phone: [facility] 10-24-2023 07:09-0400 Body weight 83.1 kg Carolee Mack MD Work Phone: [facility] 08-04-2023 08:30-0400 Body height 175.3 cm Jennifer Smith MD Work Phone: [facility] 08-04-2023 08:30-0400 Body mass index (BMI) [Ratio] 27.05 kg/m2 Jennifer Smith MD Work Phone: [facility] 08-04-2023 08:30-0400 Body temperature 98.01 [degF] Jennifer Smith MD Work Phone: [facility] 08-04-2023 08:30-0400 Body weight 83.1 kg Jennifer Smith MD Work Phone: [facility] 08-04-2023 08:30-0400 Diastolic blood pressure 64 mm[Hg] Jennifer Smith MD Work Phone: [facility] 08-04-2023 08:30-0400 Heart rate 63 /min Jennifer Smith MD Work Phone: [facility] 08-04-2023 08:30-0400 SaO2% (BldA) [Mass fraction] 98 % Jennifer Smith MD Work Phone: [facility] 08-04-2023 08:30-0400 Systolic blood pressure 130 mm[Hg] Jennifer Smith MD Work Phone: [facility] 06-28-2023 09:41-0400 Body height 175.3 cm Yessenia Oconnor DO Work Phone: [facility] 06-28-2023 09:41-0400 Body mass index (BMI) [Ratio] 27.93 kg/m2 Yessenia Oconnor DO Work Phone: [facility] 06-28-2023 09:41-0400 Body weight 85.8 kg Yessenia Oconnor DO Work Phone: [facility] 06-28-2023 09:41-0400 Diastolic blood pressure 72 mm[Hg] Yessenia Oconnor DO Work Phone: [facility] 06-28-2023 09:41-0400 Heart rate 63 /min Yessenia Oconnor DO Work Phone: [facility] 06-28-2023 09:41-0400 SaO2% (BldA) [Mass fraction] 99 % Yessenia Oconnor DO Work Phone: [facility] 06-28-2023 09:41-0400 Systolic blood pressure 126 mm[Hg] Yessenia Oconnor DO Work Phone: [facility] 05-10-2023 10:07-0400 Body height 175.3 cm Monica Cioce [employer] E[employer] DEVELOPER.COSTUME [employer]APER Work Phone: [facility] 05-10-2023 10:07-0400 Body temperature 98.1 [degF] Monica Cioce [employer] DEVELOPER.CO[employer]UME [employer]APER Work Phone: [facility] 05-10-2023 10:07-0400 Body weight 84.37 kg Monica Cioce [employer] E[employer] DEVELOPER.COSTUME [employer]APER Work Phone: [facility] 05-10-2023 10:07-0400 Diastolic blood pressure 72 mm[Hg] Monica Cioce [employer] DEVELOPER.COSTUME [employer]APER Work Phone: [facility] 05-10-2023 10:07-0400 Heart rate 60 /min Monica Cioce [employer] E[employer] DEVELOPER.COSTUME DRAPER Work Phone: [facility] 05-10-2023 10:07-0400 SaO2% (BldA) [Mass fraction] 98 % Monica Cioce [employer] DEVELOPER.COSTUME [employer]APER Work Phone: [facility] 05-10-2023 10:07-0400 Systolic blood pressure 122 mm[Hg] Monica Hoyt APRN.CNP Work Phone: [facility] 04-18-2023 09:54-0500 Body height 175.3 cm Sary Gordon MD Work Phone: [facility] 04-18-2023 09:54-0500 Body weight 81.65 kg Sary Gordon MD Work Phone: [facility] 04-18-2023 09:54-0500 Diastolic blood pressure 87 mm[Hg] Sary Gordon MD Work Phone: [facility] 04-18-2023 09:54-0500 Heart rate 89 /min Sary Gordon MD Work Phone: [facility] 04-18-2023 09:54-0500 Respiratory rate 15 /min Sary Gordon MD Work Phone: [facility] 04-18-2023 09:54-0500 SaO2% (BldA) [Mass fraction] 97 % Sary Gordon MD Work Phone: [facility] 04-18-2023 09:54-0500 Systolic blood pressure 133 mm[Hg] Sary Gordon MD Work Phone: [facility] 11-08-2022 08:48-0400 Heart rate 66 /min Dr. Piedad Han Work Phone: [facility] 11-08-2022 08:46-0400 Body temperature 98.2 [degF] Dr. Piedad Han Work Phone: [facility] 11-08-2022 08:46-0400 Diastolic blood pressure 73 mm[Hg] Dr. Piedad Han Work Phone: [facility] 11-08-2022 08:46-0400 Respiratory rate 18 /min Dr. Piedad Han Work Phone: [facility] 11-08-2022 08:46-0400 SaO2% (BldA) [Mass fraction] 98 % Dr. Piedad Han Work Phone: [facility] 11-08-2022 08:46-0400 Systolic blood pressure 141 mm[Hg] Dr. Piedad Han Work Phone: [facility] 11-07-2022 07:46-0400 Body height 175.[address] Piedad Han Work Phone: [facility] 11-07-2022 07:46-0400 Body weight 84.[address] Piedad Han Work Phone: [facility] 11-04-2022 09:25-0400 Body mass index (BMI) [Ratio] 27.4 kg/m2 Dr. Piedad Han Work Phone: [facility] 10-11-2022 10:28-0400 Body height 175.[address] Piedad aHn Work Phone: [facility] 10-11-2022 10:28-0400 Body mass index (BMI) [Ratio] 27.4 kg/m2 Dr. Piedad Han Work Phone: [facility] 10-11-2022 10:28-0400 Body weight 84.[address] Piedad Han Work Phone: [facility] 10-11-2022 10:28-0400 Diastolic blood pressure 41 mm[Hg] Dr. Piedad Han Work Phone: [facility] 10-11-2022 10:28-0400 Heart rate 60 /min Dr. Piedad Han Work Phone: [facility] 10-11-2022 10:28-0400 Respiratory rate 16 /min Dr. Piedad Han Work Phone: [facility] 10-11-2022 10:28-0400 Systolic blood pressure 136 mm[Hg] Dr. Piedad Han Work Phone: [facility] Encounters Encounter Date Encounter Type Care Provider Facility Start: 11-18-2024 ambulatory Piedad Han Facilit y:[facility] Start: 10-23-2024 End: 10-23-[address] Piedad Han MD Work Phone: -[facility] [place] Start: 10-23-2024 End: 10-23-[address] Piedad Han MD -[facility] Work Phone: Start: 10-23-2024 End: 10-23-2024 ambulatory Piedad Han Facility:[facility] Start: 09-26-2024 Non-patient / Non-visit Dr. Adan TRINH -[facility] Start: 09-26-2024 End: 09-26-[address] Piedad Han MD Work Phone: -Cardiovascular Services Start: 09-26-2024 End: 09-26-2024 Patient encounter procedure Roman ORDAZ -Cardiovascular Services Work Phone: Start: 09-26-2024 End: 09-26-2024 ambulatory Roman Pham Facility:[facility] Start: 08-06-2024 End: 08-07-2024 Telephone encounter Elena [...] Start: 08-05-2024 End: 08-05-2024 ambulatory ELENA JORDAN Facility:[facility] Start: 07-30-2024 End: 07-30-[address] Piedad Han MD Work Phone: [facility] Work Phone: Start: 07-30-2024 End: 07-30-[address] Piedad Han MD -[facility] Work Phone: Start: 07-30-2024 End: 07-30-2024 ambulatory Piedad Han Facility:[facility] Start: 07-18-2024 End: 07-19-2024 Telephone encounter Monica C Cioce [employer] DEVELOPER.COSTUME DRAPER Work Phone: Endocrinology Comment on above: Orders (CGM sensors) Start: 07-17-2024 End: 07-19-2024 ambulatory Monica C Cioce [employer] E[employer] DEVELOPER.COSTUME DRAPER Work Phone: Endocrinology Comment on above: Medical Service Comp any - [employer] Start: 07-12-2024 End: 07-12-2024 Patient encounter procedure Roman ORDAZ -[facility] Work Phone: Start: 07-12-2024 End: 07-12-[address] Piedad Han MD Work Phone: [facility] Work Phone: Start: 07-05-2024 Non-patient / Non-visit Dr. Gilmer Corcoran MD -[facility] Work Phone: Start: 07-05-2024 End: 07-05-[address] Piedad Han MD Work Phone: [facility] Work Phone: Start: 07-05-2024 End: 07-05-2024 Patient encounter procedure Roman ORDAZ -Pulmonary Services/Neurology Work Phone: Start: 07-05-2024 End: 07-05-2024 ambulatory Roman Pham Facility:[facility] Start: 07-01-2024 End: 07-01-2024 Telephone encounter Monica C Cioce [employer] DEVELOPER.COSTUME [employer]APER Work Phone: Endocrinology Comment on above: Addended OV Notes to DME Start: 07-01-2024 End: 07-01-2024 Patient encounter procedure Roman ORDAZ -[facility] Work Phone: Start: 07-01-2024 End: 07-01-[address] Piedad Han MD Work Phone: [facility] Work Phone: Start: 06-21-2024 End: 06-21-2024 Patient encounter procedure Roman ORDAZ -[facility] Work Phone: Start: 06-21-2024 End: 06-21-2024 ambulatory Piedad Han Facility[place] Start: 06-07-2024 End: 06-07-[address] Gilmer Corcoran MD -[facility] Work Phone: Start: 06-07-2024 End: 06-07-2024 ambulatory Piedad Han Facility:[facility] Start: 06-07-2024 End: 06-07-[address] Piedad Han MD -[facility] Work Phone: Start: 06-07-2024 End: 06-07-2024 ambulatory Piedad Han Facility:[facility] Start: 06-04-2024 End: 06-04-[address] Myrna Barrios DO -[facility] Work Phone: Start: 06-04-2024 End: 06-04-2024 ambulatory Piedad Han Facility:[facility] Start: 05-31-2024 End: 05-31-2024 Telephone encounter Monica Hoyt [employer] DEVELOPER.COSTUME DRAPER Work Phone: Endocrinology Comment on above: Orders (MSC) Start: 05-29-2024 End: 05-29-2024 ambulatory MONICA C CIOCE Facility:[facility] Start: 05-29-2024 End: 05-29-2024 Patient encounter procedure Monica Salterocben [employer] DEVELOPER.COSTUME DRAPER Work Phone: Endocrinology Comment on above: Controlled type 2 di abetes mellitus without complication, unspecified whether shelter insulin use (HCC) (Primary Dx) Start: 05-29-2024 End: 05-29-2024 ambulatory MONICA Mustapha ANTONIALBERTO Facility:[facility] Start: 04-09-2024 Non-patient / Non-visit Dr. Yelitza Olmos MD -[facility] Start: 04-09-2024 End: 04-09-[address] Piedad Han MD Work Phone: [facility] Work Phone: Start: 04-09-2024 End: 04-09-[address] Piedad Han MD -Cardiovascular Services Work Phone: Start: 04-09-2024 End: 04-09-2024 ambulatory Piedad Han Facility:[facility] Start: 04-02-2024 End: 04-02-[address] [facility] Start: 04-02-2024 End: 04-02-2024 ambulatory Piedad Han Facility:[facility] Start: 03-07-2024 End: 03-07-2024 Refill Gilmer Chamberlain MD Work Phone: Cardiology Comment on above: Refill Request Start: 02-15-2024 End: 02-15-2024 ambulatory [facility] Start: 02-15-2024 End: 02-15-2024 Patient encounter procedure [facility] Start: 01-03-2024 End: 01-03-2024 ambulatory YESSENIA OCONNOR Facility:[facility] Start: 01-03-2024 End: 01-03-2024 Patient encounter procedure Yessenia Oconnor DO Work Phone: Cardiology Comment on above: Coronary artery dise ase involving [place] coronary artery of [place] heart without angina pectoris (Primary Dx); Ischemic cardiomyopathy; Pure hypercholesterolemia; Essential hypertension Start: 12-27-2023 End: 12-27-2023 Chart abstracting Bernardino Henriquez RN [facility] Start: 12-27-2023 End: 12-27-2023 Telephone encounter Bernardino Henriquez RN [facility] Comment on above: Referral - Kidney Tx p (Closed-referred too early) Start: 12-22-2023 End: 12-22-2023 Patient encounter status Kidney Txp Coordinators Work Phone: [facility] Work Phone: Start: 12-22-2023 End: 12-22-2023 Telephone encounter Kidney Txp Coordinators Work Phone: [facility] Comment on above: Referral - Kidney Tx p Start: 12-16-2023 End: 12-19-2023 ambulatory Yessenia Oconnor DO Work Phone: Cardiology Comment on above: [employer] delivery Start: 12-05-2023 End: 12-05-2023 ambulatory Piedad Han Facility:[facility] Start: 11-08-2023 End: 11-08-2023 ambulatory MONICA HOYT Facility:[facility] Start: 11-08-2023 End: 11-08-2023 Patient encounter procedure Monica Hoyt [employer] E[employer] DEVELOPER.COSTUME DRAPER Work Phone: Endocrinology Comment on above: Controlled type 2 di abetes mellitus without complication, unspecified whether shelter insulin use (HCC) (Primary Dx) Start: 10-24-2023 End: 10-24-2023 ambulatory JENNIFER SMITH Facility:[facility] Start: 10-24-2023 End: 10-24-2023 Subsequent hospital visit by physician Carolee Mack MD Work Phone: Ambulatory Surgery Comment on above: Special screening fo r malignant neoplasms, colon [Z12.11] Start: 10-17-2023 End: 10-17-2023 ambulatory MONICA HOYT Facility:[facility] Start: 08-04-2023 End: 08-04-2023 Patient encounter [...] on above: Coronary artery dise ase involving [place] coronary artery of [place] heart without angina pectoris (Primary Dx); Pure hypercholesterolemia; Essential hypertension; Cardiomyopathy, ischemic Start: 06-01-2023 End: 06-01-2023 ambulatory [facility] Work Phone: Start: 06-01-2023 End: 06-01-2023 Patient encounter procedure [facility] Work Phone: Start: 05-12-2023 ambulatory Monica Hoyt [employer] E[employer] DEVELOPER.COSTUME DRAPER Work Phone: Endocrinology Comment on above: Vit D and sliding sc jodie Start: 05-12-2023 E-mail encounter fro m caregiver Monica Luciano Cioce [employer] ETL DEVELOPER.COSTUME DRAPER Work Phone: [facility] Start: 05-10-2023 End: 05-10-2023 Patient encounter procedure Monica Salterocben [employer] E[employer] DEVELOPER.COSTUME DRAPER Work Phone: Endocrinology Comment on above: Type 2 diabetes jessica itus with stage 3b chronic kidney disease, with long-term current use of insulin (HCC) (Primary Dx) Start: 05-02-2023 ambulatory Latricia Parekh RN [facility] Start: 04-21-2023 End: 04-21-2023 ambulatory [facility] Work Phone: Start: 04-21-2023 End: 04-21-2023 Patient encounter procedure [facility] Work Phone: Start: 04-18-2023 End: 04-18-2023 Patient encounter procedure Sary Gordon MD Work Phone: Cardiology Comment on above: Chronic systolic HF (heart failure) (HCC) (Primary Dx); Cardiomyopathy, ischemic; Coronary artery disease involving [place] heart with angina pectoris, unspecified vessel or lesion type ([facility]); Hypertensive kidney disease with stage 3 chronic kidney disease, unspecified whether stage 3a or 3b CKD ([facility]); Primary hypertension; Hyperlipidemia, unspecified hyperlipidemia type; Coronary angioplasty status; Ischemic cardiomyopathy; Heart disease; Coronary artery disease of [place] artery of [place] heart with stable angina pectoris ([facility]); Stage 3b chronic kidney disease ([facility]); Type 2 diabetes mellitus with stage 3b chronic kidney disease, with long-term current use of insulin ([facility]) Start: 03-31-2023 End: 03-31-2023 ambulatory [facility] Work Phone: Start: 03-31-2023 End: 03-31-2023 Patient encounter procedure [facility] Work Phone: Start: 03-27-2023 Refconchita pate MD Work Phone: Cardiology Comment on above: Refill Request Start: 03-24-2023 End: 03-24-2023 ambulatory [facility] Facility:[facility] Start: 03-24-2023 End: 03-24-2023 Patient encounter procedure [facility] Work Phone: Start: 03-24-2023 End: 03-24-2023 Patient encounter procedure Card Rehab Phase 2 Ona Work Phone: [facility] Cardiac Rehab Comment on above: S/P CABG (coronary a rtery bypass graft) (Primary Dx) Start: 03-22-2023 End: 03-22-2023 ambulatory [facility] Facility:[facility] Start: 03-22-2023 End: 03-22-2023 Patient encounter procedure Card Rehab Phase 2 On[place] Work Phone: [facility] Comment on above: S/P CABG (coronary a rtery bypass graft) (Primary Dx) Start: 03-17-2023 End: 03-17-2023 ambulatory [facility] Facility:[facility] Start: 03-17-2023 End: 03-17-2023 Patient encounter procedure [facility] Work Phone: Start: 03-15-2023 Telephone encounter Elizabeth Chamberlain MD Work Phone: Cardiology Comment on above: Follow Up Start: 03-14-2023 End: 03-14-2023 ambulatory [facility] Facility:[facility] Start: 03-09-2023 End: 03-09-2023 ambulatory [facility] Work Phone: Start: 03-09-2023 End: 03-09-2023 Patient encounter procedure [facility] Work Phone: Start: 02-07-2023 End: 02-07-2023 ambulatory [facility] Work Phone: Start: 02-07-2023 End: 02-07-2023 Patient encounter procedure [facility] Work Phone: Start: 02-01-2023 Follow-up encounter Raúl kelsey MD Work Phone: Cardiothoracic Comment on above: Chest pain, unspecif ied type (Primary Dx); Surgery follow-up Start: 01-24-2023 End: 01-26-2023 Patient encounter status Yessenia Oconnor Work Phone: [facility] Start: 01-20-2023 ambulatory Raúl Xiao MD Work Phone: Cardiothoracic Comment on above: FMLA paperwork Start: 01-16-2023 Telephone encounter Nadine meyer RN Work Phone: Case Management Comment on above: [employer] (Care Continuum Advisor Assessment ) Start: 01-12-2023 Telephone encounter Raúl kelsey MD Work Phone: Cardiothoracic Comment on above: Cardiac Preop Checkl ist Start: 01-10-2023 End: 01-10-2023 Patient encounter procedure Raúl Xiao MD Work Phone: Cardiothoracic Comment on above: Cardiomyopathy, isch emic; Coronary artery disease involving [place] heart with angina pectoris, unspecified vessel or [...] above: Referral Information Start: 2022 ambulatory Cielo Rivergrove PA -C Work Phone: General Surgery Comment on above: Mychart Start: 11-20-2022 Admission to [facility] Cielo Rivergrove PA-C Work Phone: General Surgery Comment on above: Bypass surgery Start: 11-20-2022 ambulatory CieloDGSEf PA -C Work Phone: [facility] Start: 11-15-2022 Telephone encounter Mani hudson MD Work Phone: [facility] Cardiology Comment on above: Appointment; Patient Update Start: 11-07-2022 End: 11-08-2022 Evaluation and management of inpatient Dr. Piedad Han Work Phone: [facility] 3 Work Phone: Start: 11-07-2022 End: 11-08-[address] Piedad Han Work Phone: [facility] Work Phone: Start: 11-03-2022 End: 11-03-[address] Piedad Han Work Phone: [facility] Work Phone: Start: 11-03-2022 End: 11-03-[address] Piedad Han Work Phone: [facility] Work Phone: Start: 10-28-2022 End: 10-28-[address] Piedad Han Work Phone: [facility] Work Phone: Start: 10-28-2022 End: 10-28-[address] Piedad Han Work Phone: [facility] Work Phone: Start: 10-11-2022 End: 10-11-[address] Piedad Han Work Phone: [facility] Work Phone: Start: 08-30-2022 End: 08-30-[address] Piedad Han Work Phone: [facility] Work Phone: Start: 08-30-2022 End: 08-30-[address] Piedad Han Work Phone: [facility] Work Phone: Start: 08-24-2022 Non-patient / Non-visit Dr. May Han Work Phone: [facility] Start: 08-24-2022 End: 08-24-[address] Piedad Han Work Phone: [facility] Work Phone: Start: 08-24-2022 End: 08-24-[address] Piedad Han Work Phone: [facility] Work Phone: Start: 08-12-2022 End: 08-12-2022 ambulatory [facility] Work Phone: Start: 08-12-2022 End: 08-12-2022 Patient encounter procedure [facility] Work Phone: Start: 07-27-2022 End: 07-27-2022 [facility] Work Phone: Start: 06-20-2022 End: 06-20-2022 ambulatory [facility] Work Phone: Start: 06-20-2022 End: 06-20-2022 Patient encounter [facility] Start: 05-05-2022 End: 05-05-2022 ambulatory [facility] Work Phone: Start: 05-05-2022 End: 05-05-2022 [facility] Start: 03-01-2022 End: 03-01-2022 ambulatory [facility] Work Phone: Start: 03-01-2022 End: 03-01-2022 Patient encounter [facility] Start: 01-24-2022 End: 01-24-2022 [facility] encounter [facility] Start: 12-23-2021 End: 12-23-2021 [facility] encounter [facility] Start: 11-22-2021 End: 11-22-2021 ambulatory [facility] Work Phone: Start: 11-22-2021 End: 11-22-2021 Patient encounter [facility] Start: 11-15-2021 End: 11-15-2021 ambulatory [facility] Work Phone: Start: 11-15-2021 End: 11-15-2021 Patient encounter procedure [facility] Start: 10-26-2021 End: 10-26-2021 Patient encounter [facility] Start: 07-22-2021 End: 07-22-2021 Patient encounter [facility] Start: 04-22-2021 End: 04-22-2021 Patient encounter procedure [facility] Procedures Date Procedure Procedure Detail Performing Clinician [...] diagnostic, especiallyat very low levels. The assay bicycle fitter has found thatfour percent of individuals without [...] S/P CABG (coronary artery bypass graft) Card [facility] Work Phone: History of coronary artery bypass grafting S/P CABG (coronary artery bypass graft) Card [facility] Work Phone: History of coronary artery bypass grafting Hx of CABG Elena Jordan MD Work Phone: Plan of Treatment Date Care Activity Detail Author Start: 08-01-2034 Urine microalbumin profile DTaP,Tdap,Td Vaccine (3 - Td or Tdap) [facility] Start: 08-05-2025 Creatinine measurement Serum Creatin ine [facility] Start: 05-29-2025 Creatinine measurement Serum Creatin ine [facility] Start: 05-29-2025 Hepatitis B surface antibody level LDL Cholesterol [facility] Start: 01-02-2025 BP Controlled (<130/80) BP Controlle d (<130/80) [facility] Start: 01-01-2025 End: 01-01-2025 Patient encounter procedure 01/01/2025 8:00 AM EST Office Visit Cardiology [address] [address] Miguelina Kwan, ORACLE ETL DEVELOPER.COSTUME DRAPER [address] [place] [address] Yearly follow up Cardiology Comment on above: Yearly follow up Start: 12-11-2024 End: 12-11-2024 Patient encounter procedure 12/11/2024 2:00 PM EDT Office Visit [facility] [place] [address] [place], [place] [id number] Elena Jordan MD [address] [place], [place] [id number] 3 month f/u. dlm [facility] Comment on above: 3 month f/u. dlm Start: 11-28-2024 Hemoglobin A1c measurement HbA1C [facility] Start: 11-27-2024 End: 11-27-2024 Patient encounter procedure 11/27/2024 12:45 PM EDT Office Visit Endocrinology [address] [place] [address] Monica Hoyt, ORACLE ETL DEVELOPER.COSTUME DRAPER [address] [place] [address] 6 month f/u Endocrinology Comment on above: 6 month f/u Start: 10-23-2024 End: 10-23-2024 Patient encounter procedure 10/23/2024 2:20 PM EDT Office Visit [facility] [place] [address] [place] [address] Raúl Ortiz MD [address] [facility] [address] [place] [phone] Jordan for ICD eval. LVM. dlm [facility] Cardiology [place] Comment on above: Referral per Dr. Camacho carson for ICD eval. LVM. dlm Start: 10-23-2024 Screening for malign ant neoplasm of colon [facility] Start: 10-16-2024 Creatinine measurement Serum Creatin ine [facility] Start: 10-16-2024 Hepatitis B surface antibody level LDL Cholesterol [facility] Start: 09-13-2024 Glaucoma screening Dilated Retinal E xam [facility] Start: 09-04-2024 End: 12-04-2024 Basic metabolic 2000 panel - Serum or Plasma BASIC METABOLIC PANEL Lab Routine Systolic congestive heart failure, unspecified HF chronicity (HCC) Expected: 09/04/2024, Expires: 12/04/2024 [facility] Comment on above: Expected: 09/04/2024 , Expires: 12/04/2024 Start: 09-04-2024 End: 09-04-2024 Patient encounter procedure 09/04/2024 8:20 AM EDT Office Visit [facility] [place] [address] [place] [address] Yessenia Uriostegui MD [address] [place] [address] [place] [phone] REF, [facility] for ICD evaluation- hlk [facility] Cardiology Jerome Comment on above: REF, [facility] for ICD prashanth luation- hlk Start: 08-12-2024 End: 11-11-2024 Basic metabolic 2000 panel - Serum or Plasma BASIC METABOLIC PANEL Lab Routine Systolic congestive heart failure, unspecified HF chronicity (HCC) Expected: 08/12/2024, Expires: 11/11/2024 [facility] Work Phone: Comment on above: Expected: 08/12/2024 , Expires: 11/11/2024 Start: 08-05-2024 End: 08-05-2024 Patient encounter procedure Cardiology Comment on above: ALEJANDRO from [facility] Start: 07-01-2024 Evaluation of diagnostic study results 12 Lead EKG performed by [facility] Start: 06-27-2024 BP Controlled (<130/80) BP Controlle d (<130/80) [facility] Start: 06-24-2024 Patient referral [facility] Work Phone: Start: 05-09-2024 BP Controlled (<130/80) BP Controlle d (<130/80) [facility] Start: 05-08-2024 End: 05-08-2024 Patient encounter procedure 05/08/2024 9:15 AM EDT Office Visit Endocrinology [address] [place] [address] Monica Hoyt, ORACLE ETL DEVELOPER.COSTUME DRAPER [address] [place] [address] 6 MTH F/U Endocrinology Comment on above: 6 MTH F/U Start: 04-15-2024 Hemoglobin A1c measurement HbA1C [facility] Start: 04-13-2024 End: 07-13-2024 Comprehensive metabolic 2000 panel - Serum or Plasma COMPREHENSIVE METABOLIC PANEL Lab Routine Controlled type 2 diabetes mellitus without complication, unspecified whether shelter insulin use (HCC) Expected: 04/13/2024, Expires: 07/13/2024 [facility] Work Phone: Comment on above: Expected: 04/13/2024 , Expires: 07/13/2024 Start: 04-13-2024 End: 07-13-2024 Hemoglobin A1c in Blood HEMOGLOBIN A1C Lab Routine Controlled type 2 diabetes mellitus without complication, unspecified whether shelter insulin use (HCC) Expected: 04/13/2024, Expires: 07/13/2024 [facility] Comment on above: Expected: 04/13/2024 , Expires: 07/13/2024 Start: 04-13-2024 End: 07-13-2024 LIPID PANEL, NONFASTING LIPID PANEL, NONFASTING Lab Routine Controlled type 2 diabetes mellitus without complication, unspecified whether fixer boarding room insulin use (HCC) Expected: 04/13/2024, Expires: 07/13/2024 [facility] Comment on above: Expected: 04/13/2024 , Expires: 07/13/2024 Start: 04-13-2024 End: 07-13-2024 Microalbumin/Creatinine [Mass Ratio] in Urine ALBUMIN/CREATININE RATIO, URINE Lab Routine Controlled type 2 diabetes mellitus without complication, unspecified whether shelter insulin use (HCC) Expected: 04/13/2024, Expires: 07/13/2024 [facility] Comment on above: Expected: 04/13/2024 , Expires: 07/13/2024 Start: 03-14-2024 BP Controlled (<130/80) BP Controlle d (<130/80) [facility] Start: 02-14-2024 Advance Directive Discussion Advance Directive Discussion [facility] Start: 02-03-2024 Complete blood count [facility] Start: 02-03-2024 Creatinine measurement Serum Creatin ine [facility] Start: 02-02-2024 Complete blood count [facility] Start: 02-02-2024 Creatinine measurement Serum Creatin ine [facility] Start: 01-11-2024 Serum Creatinine Serum Creatinine Cl [facility] Start: 01-03-2024 End: 01-03-2024 Patient encounter procedure 01/03/2024 11:40 AM EST Office Visit Cardiology [address] [address] Yessenia Oconnor DO [address] [place] [address] 6 month follow up Cardiology Comment on above: 6 month follow up Start: 11-10-2023 Hemoglobin A1c measurement HbA1C [facility] Start: 11-08-2023 End: 11-08-2023 Patient encounter procedure 11/08/2023 9:45 AM EDT Office Visit Endocrinology [address] [place] [address] Monica Hoyt, ORACLE ETL DEVELOPER.COSTUME DRAPER [address] [place] [address] 6 mo follow up diabetes Endocrinology Comment on above: 6 mo follow up diabe karrie Start: 11-02-2023 End: 11-02-2023 Patient encounter procedure 11/02/2023 8:00 AM EDT Office Visit General Surgery [address] [place], [place] [phone] Alisson Mendez APRN.COSTUME DRAPER [address] [place] [address] 10-23 colon follow up General Surgery Comment on above: 10-23 colon follow u p Start: 10-24-2023 End: 10-24-2023 Patient encounter procedure 10/24/2023 11:45 AM EDT Appointment Ambulatory Surgery [address] [place], [place] [phone] Jennifer Smith MD [address] [address] patien tto do 2 day clear fluid prep Ambulatory Surgery Comment on above: patien tto do 2 day clear fluid prep Start: 10-15-2023 End: 01-14-2024 ALBUMIN/CREAT RATIO RND UR ALBUMIN/CREAT RATIO RND UR Lab Routine Type 2 diabetes mellitus with stage 3b chronic kidney disease, with long-term current use of insulin (HCC) Expected: 10/15/2023, Expires: 01/14/2024 [facility] Work Phone: Comment on above: Expected: 10/15/2023 , Expires: 01/14/2024 Start: 10-15-2023 End: 01-14-2024 Comprehensive metabolic 2000 panel - Serum or Plasma COMP METABOLIC PANEL Lab Routine Type 2 diabetes mellitus with stage 3b chronic kidney disease, with long-term current use of insulin (HCC) Expected: 10/15/2023, Expires: 01/14/2024 [facility] Work Phone: Comment on above: Expected: 10/15/2023 , Expires: 01/14/2024 Start: 10-15-2023 Covid-19 Vaccine () Covid-19 Vaccine () [facility] Start: 10-15-2023 Covid-19 Vaccine () Covid-19 Vaccine () [facility] Start: 10-15-2023 End: 01-14-2024 Hemoglobin A1c in Blood HGB A1C Lab Routine Type 2 diabetes mellitus with stage 3b chronic kidney disease, with long-term current use of insulin (HCC) Expected: 10/15/2023, Expires: 01/14/2024 [facility] Work Phone: Comment on above: Expected: 10/15/2023 , Expires: 01/14/2024 Start: 10-15-2023 Influenza vaccination Influenza Vacc ine (#1) [facility] Start: 10-15-2023 End: 01-14-2024 LIPID PANEL, NONFASTING LIPID PANEL, NONFASTING Lab Routine Type 2 diabetes mellitus with stage 3b chronic kidney disease, with long-term current use of insulin (HCC) Expected: 10/15/2023, Expires: 01/14/2024 [facility] Work Phone: Comment on above: Expected: 10/15/2023 , Expires: 01/14/2024 Start: 08-04-2023 End: 08-04-2023 Patient encounter procedure 08/04/2023 8:30 AM EDT Office Visit General Surgery [address] [facility] [address] [facility] [place], [place] [phone] Jennifer Smith MD [address] [id number] COLONOSCOPY CONSULT, 06/23/20 colon-poor prep, no specimens, repeat 1 year, 06/28/23 cardiology visit-CABG x4 01/26/23 @[facility], EF 40%, f/u 6 months ra General Surgery Comment on above: COLONOSCOPY CONSULT, 06/23/20 colon-poor prep, no specimens, repeat 1 year, 06/28/23 cardiology visit-CABG x4 01/26/23 @[facility], EF 40%, f/u 6 months ra Start: 04-12-2023 Hemoglobin A1c measurement HbA1C [facility] Start: 04-12-2023 Hemoglobin A1c/Hemoglobin.total in Blood HbA1C [facility] Start: 02-13-2023 Advance Directive Discussion Advance Directive Discussion [facility] Start: 02-13-2023 Behavioral Health Screening Behavioral Health Screening [facility] Start: 02-13-2023 Depression Assessment Depression Ass essment [facility] Start: 02-01-2023 End: 05-03-2023 CBC panel - Blood by Automated count CBC Lab Routine Chest pain, unspecified type Expected: 02/01/2023, Expires: 05/03/2023 [facility] Work Phone: Comment on above: Expected: 02/01/2023 , Expires: 05/03/2023 Start: 02-01-2023 End: 05-03-2023 Comprehensive metabolic 2000 panel - Serum or Plasma COMP METABOLIC PANEL Lab Routine Surgery follow-up Expected: 02/01/2023, Expires: 05/03/2023 [facility] Work Phone: Comment on above: Expected: 02/01/2023 , Expires: 05/03/2023 Start: 01-12-2023 End: 04-13-2023 aPTT in Platelet poor plasma by Coagulation assay ACTIVATED PTT Lab Routine Coronary artery disease involving [place] coronary artery of [place] heart with angina pectoris (HCC) Ischemic cardiomyopathy Stage 3 chronic kidney disease, unspecified whether stage 3a or 3b CKD (HCC) Type 2 diabetes mellitus without complication, unspecified whether fixer boarding room insulin use (HCC) Hypothyroidism, unspecified type Primary hypertension Hyperlipidemia, unspecified hyperlipidemia type Chest pain, unspecified type Expected: 01/12/2023 (Approximate), Expires: 04/13/2023 [facility] Work Phone: Comment on above: Expected: 01/12/2023 (Approximate), Expires: 04/13/2023 Start: 01-12-2023 End: 04-13-2023 CBC W Auto Differential panel - Blood CBC + DIFF Lab Routine Coronary artery disease involving [place] coronary artery of [place] heart with angina pectoris (HCC) Ischemic cardiomyopathy Stage 3 chronic kidney disease, unspecified whether stage 3a or 3b CKD (HCC) Type 2 diabetes mellitus without complication, unspecified whether fixer boarding room insulin use (HCC) Hypothyroidism, unspecified type Primary hypertension Hyperlipidemia, unspecified hyperlipidemia type Expected: 01/12/2023, Expires: 04/13/2023 [facility] Work Phone: Comment on above: Expected: 01/12/2023 , Expires: 04/13/2023 Start: 01-12-2023 End: 04-13-2023 Comprehensive metabolic 2000 panel - Serum or Plasma COMP METABOLIC PANEL Lab Routine Coronary artery disease involving [place] coronary artery of [place] heart with angina pectoris (HCC) Ischemic cardiomyopathy Stage 3 chronic kidney disease, unspecified whether stage 3a or 3b CKD (HCC) Type 2 diabetes mellitus without complication, unspecified whether fixer boarding room insulin use (HCC) Hypothyroidism, unspecified type Primary hypertension Hyperlipidemia, unspecified hyperlipidemia type Expected: 01/12/2023, Expires: 04/13/2023 [facility] Work Phone: Comment on above: Expected: 01/12/2023 , Expires: 04/13/2023 Start: 01-12-2023 End: 04-13-2023 CONFIRM BLOOD TYPE CONFIRM BLOOD TYPE Blood Bank Routine Coronary artery disease involving [place] coronary artery of [place] heart with angina pectoris (HCC) Ischemic cardiomyopathy Stage 3 chronic kidney disease, unspecified whether stage 3a or 3b CKD (HCC) Type 2 diabetes mellitus without complication, unspecified whether shelter insulin use (HCC) Hypothyroidism, unspecified type Primary hypertension Hyperlipidemia, unspecified hyperlipidemia type Expected: 01/12/2023, Expires: 04/13/2023 [facility] Work Phone: Comment on above: Expected: 01/12/2023 , Expires: 04/13/2023 Start: 01-12-2023 End: 04-13-2023 Lactate dehydrogenase [Enzymatic activity/volume] in Serum or Plasma LD LACTATE DEHYDRO Lab Routine Coronary artery disease involving [place] coronary artery of [place] heart with angina pectoris (HCC) Ischemic cardiomyopathy Stage 3 chronic kidney disease, unspecified whether stage 3a or 3b CKD (HCC) Type 2 diabetes mellitus without complication, unspecified whether fixer boarding room insulin use (HCC) Hypothyroidism, unspecified type Primary hypertension Hyperlipidemia, unspecified hyperlipidemia type Expected: 01/12/2023, Expires: 04/13/2023 [facility] Work Phone: Comment on above: Expected: 01/12/2023 , Expires: 04/13/2023 Start: 01-12-2023 End: 04-13-2023 PT panel - Platelet poor plasma by Coagulation assay PROTHROMBIN TIME/PT Lab Routine Coronary artery disease involving [place] coronary artery of [place] heart with angina pectoris (HCC) Ischemic cardiomyopathy Stage 3 chronic kidney disease, unspecified whether stage 3a or 3b CKD (HCC) Type 2 diabetes mellitus without complication, unspecified whether fixer boarding room insulin use (HCC) Hypothyroidism, unspecified type Primary hypertension Hyperlipidemia, unspecified hyperlipidemia type Expected: 01/12/2023 (Approximate), Expires: 04/13/2023 [facility] Work Phone: Comment on above: Expected: 01/12/2023 (Approximate), Expires: 04/13/2023 Start: 01-12-2023 End: 04-13-2023 Thyrotropin [Units/volume] in Serum or Plasma TSH BLD Lab Routine Coronary artery disease involving [place] coronary artery of [place] heart with angina pectoris (HCC) Ischemic cardiomyopathy Stage 3 chronic kidney disease, unspecified whether stage 3a or 3b CKD (HCC) Type 2 diabetes mellitus without complication, unspecified whether fixer boarding room insulin use (HCC) Hypothyroidism, unspecified type Primary hypertension Hyperlipidemia, unspecified hyperlipidemia type Expected: 01/12/2023 (Approximate), Expires: 04/13/2023 [facility] Work Phone: Comment on above: Expected: 01/12/2023 (Approximate), Expires: 04/13/2023 Start: 01-12-2023 End: 04-13-2023 TYPE AND SCREEN,30 DAY TYPE AND SCREEN,30 DAY Blood Bank Routine Coronary artery disease involving [place] coronary artery of [place] heart with angina pectoris (HCC) Ischemic cardiomyopathy Stage 3 chronic kidney disease, unspecified whether stage 3a or 3b CKD (HCC) Type 2 diabetes mellitus without complication, unspecified whether fixer boarding room insulin use (HCC) Hypothyroidism, unspecified type Primary hypertension Hyperlipidemia, unspecified hyperlipidemia type Expected: 01/12/2023, Expires: 04/13/2023 [facility] Work Phone: Comment on above: Expected: 01/12/2023 , Expires: 04/13/2023 Start: 01-12-2023 End: 04-13-2023 URINALYSIS, DIPSTICK ONLY URINALYSIS, DIPSTICK ONLY Lab Routine Coronary artery disease involving [place] coronary artery of [place] heart with angina pectoris (HCC) Ischemic cardiomyopathy Stage 3 chronic kidney disease, unspecified whether stage 3a or 3b CKD (HCC) Type 2 diabetes mellitus without complication, unspecified whether shelter insulin use (HCC) Hypothyroidism, unspecified type Primary hypertension Hyperlipidemia, unspecified hyperlipidemia type Expected: 01/12/2023, Expires: 04/13/2023 [facility] Work Phone: Comment on above: Expected: 01/12/2023 , Expires: 04/13/2023 Start: 11-08-2022 Patient discharge [facility] Start: 11-07-2022 Admission procedure [facility] Start: 11-07-2022 Following clinical pathway protocol [facility] Start: 11-07-2022 Notification of physician [facility] Start: 11-07-2022 Patient education [facility] Start: 11-07-2022 Provision of activit y privileges [facility] Start: 11-07-[address] [facility] Start: 11-07-2022 Taking patient vital signs [facility] Start: 11-07-[address] [facility] Start: 11-07-[address] [facility] Start: 11-07-2022 Admission procedure [facility] Start: 10-14-2022 Covid-19 Vaccine ( season) Covid-19 Vaccine ( season) [facility] Start: 10-14-2022 Covid-19 Vaccine ( season) Covid-19 Vaccine ( season) [facility] Start: 10-14-2022 Covid-19 Vaccine ( season) Covid-19 Vaccine ( season) [facility] Start: 10-14-2022 Influenza vaccination Influenza Vacc ine (#1) [facility] Start: 09-14-2022 Urine microalbumin profile DTaP,Tdap,Td Vaccine (2 - Tdap) [facility] Start: 02-13-2022 Advance Directive Discussion Advance Directive Discussion [facility] Start: 02-13-2022 Depression Assessment Depression Ass essment [facility] Start: 01-27-2022 Pneumococcal Vaccine : 65+ (2 - PCV) Pneumococcal Vaccine: 65+ (2 - PCV) [facility] Start: 01-27-2022 Pneumococcal Vaccine : 65+ (2 of 2 - PCV) Pneumococcal Vaccine: 65+ (2 of 2 - PCV) [facility] Start: 06-23-2021 Colonoscopy Colonoscopy [facility] Start: 06-23-2021 Colorectal Cancer Screening Colorectal Cancer Screening [facility] Start: 06-23-2021 Screening for malign ant neoplasm of colon [facility] Start: 01-13-2021 Medicare Annual Wellness Visit Medicare Annual Wellness Visit [facility] Start: 07-09-2020 Covid-19 Vaccine (3 - Moderna series) Covid-19 Vaccine (3 - Moderna series) [facility] Start: 11-22-2019 Pneumococcal Vaccine : 65+ (1 - PCV) Pneumococcal Vaccine: 65+ (1 - PCV) [facility] Start: 2014 Hepatitis B Vaccine (1 of 3 - Risk 3-dose series) Hepatitis B Vaccine (1 of 3 - Risk 3-dose series) [facility] Start: 2014 RSV Vaccine (1 - 1-d ose 60+ series) RSV Vaccine (1 - 1-dose 60+ series) [facility] Start: 2014 RSV Vaccine (1 - Ris k 60-74 years 1-dose series) RSV Vaccine (1 - Risk 60-74 years 1-dose series) [facility] Start: 2009 Prostate Cancer Screening Discussion Prostate Cancer Screening Discussion [facility] Start: 2009 Prostate specific antigen measurement Prostate Cancer Screening Discussion [facility] Start: 2004 Shingrix Vaccine (1 of 2) Shingrix Vaccine (1 of 2) [facility] Start: 11-22-1999 Cologuard (FIT-DNA) Cologuard (FIT-D NA) [facility] Start: 11-22-[address] COLONOGRAPHY [facility] Start: 11-22-1999 Diabetes Screening Diabetes Screenin g [facility] Start: 11-22-1999 Fecal Occult Blood Fecal Occult Bloo d [facility] Start: 11-22-1999 Screening for malign ant neoplasm of colon [facility] Start: 11-22-1999 SIGMOIDOSCOPY SIGMOIDOSCOPY [facility] Start: 1989 Lipid 1996 panel - Serum or Plasma Lipid Screening [facility] Start: 1973 Urine microalbumin profile DTaP,Tdap,Td Vaccine (1 - Tdap) [facility] Start: 1972 Annual PCP Team Processing Rep emory Disease Visit Annual PCP Team Chronic Disease Visit [facility] Start: 1972 Anxiety Screening Anxiety Screening [facility] Start: 1972 BP Controlled (<130/80) BP Controlle d (<130/80) [facility] Start: 1972 Depression Screening Depression Scre ening [facility] Start: 1972 Hemoglobin/Hematocrit Hemoglobin/Hem atocrit [facility] Start: 1972 Hepatitis B surface antibody level LDL Cholesterol [facility] Start: 1972 Hepatitis C Screening Hepatitis C [facility] Start: 1972 Hepatitis C screening Hepatitis C [facility] Start: 1964 3 comp foot exam completed Diabetic Foot Exam [facility] Start: 1964 Diabetic foot examination Diabetic Foot Exam [facility] Start: 1964 Glaucoma screening Dilated Retinal E xam [facility] Start: 1964 Hepatitis C antibody , confirmatory test Dilated Retinal Exam [facility] Basic metabolic 2008 panel with ionized calcium - Serum or Plasma [facility] End: 02-02-2024 ECG COMPLETE ECG COMPLETE ECG Routine Surgery follow-up 1 Occurrences starting 02/01/2023 until 02/02/2024 [facility] Work Phone: Comment on above: 1 Occurrences starti ng 02/01/2023 until 02/02/2024 ECG COMPLETE ECG COMPLETE ECG 01/03/2024 11:57 AM EST [facility] NM Heart Views W str ess and W radionuclide IV [facility] Patient referral [facility] Work Phone: End: 03-02-2024 Radiologic exam chest 2 views XR CHEST 2V FRONTAL/LAT Radiology Routine Surgery follow-up 1 Occurrences starting 02/01/2023 until 03/02/2024 [facility] Work Phone: Comment on above: 1 Occurrences starti ng 02/01/2023 until 03/02/2024 End: 08-03-2024 Screening colonoscopy COLONOSCOPY SCREENING Endoscopy Routine Special screening for malignant neoplasms, colon 1 Occurrences starting 08/04/2023 until 08/03/2024 [facility] Work Phone: Comment on above: 1 Occurrences starti ng 08/04/2023 until 08/03/2024 [facility] Immunizations Immunization Date Immunization Notes Care Provider Fa [facility] 01-01-2023 influenza virus vacc ine, unspecified formulation Carolee Mack MD Work Phone: [facility] 11-26-2021 influenza virus vacc ine, unspecified formulation Mani Luis MD Work Phone: [facility] 12-06-2016 AFLURIA QUAD 18, PF, 60 mcg/0.5 mL syrg Mani Luis MD Work Phone: [facility] Comment on above: To be injected by ginger Payers Date Payer Category Payer Self-pay [id number] 2022 Private Health Insurance [id number] 2022 Unknown [id number] 2021 Medicare [id number] 2021 Medicare [id number] 2020 Unknown [id number] Unknown [id number] Unknown [id number] 2.16.8 [id number] Unknown [id number] 2.16.8 [id number] Unknown [id number] 2.16.8 [id number] Unknown [id number] 2.16.8 [id number] Unknown [id number] 2.16.8 [id number] Unknown [id number] 2.16.8 40.1.364566.3.579.2.462 Unknown [id number] 2.16.8 40.1.407986.3.579.2.462 Unknown [id number] 2.16.8 40.1.936779.3.579.2.462 Unknown [id number] 2.16.8 40.1.284380.3.579.2.462 Unknown [id number] 2.16.8 40.1.246624.3.579.2.462 Unknown [id number] 2.16.8 40.1.214806.3.579.2.462 Unknown [id number] 2.16.8 40.1.312086.3.579.2.462 Unknown [id number] 2.16.8 40.1.600425.3.579.2.462 Unknown [id number] 2.16.8 40.1.971430.3.579.2.462 Unknown [id number] 2.16.8 [id number] Unknown [id number] 2.16.8 40.1.789375.3.579.2.462 Unknown [id number] 2.16.8 [id number] Social History Date Type Detail Facility Tobacco smoking stat us NHIS Unknown if ever smoked [facility] Work Phone: Start: 1955 Sex Assigned At Male [facility] Start: 10-11-2022 End: 11-07-2022 Tobacco smoking status NHIS Unknown if ever smoked [facility] Start: 05-25-2020 End: 11-07-2022 Tobacco smoking status NHIS Never smoked tobacco [facility] Work Phone: Start: 05-25-2020 End: 05-10-2023 Tobacco use and exposure Smokeless tobacco non-user [facility] Work Phone: Start: 06-23-2020 End: 08-05-2024 Alcohol intake Lifetime non-drinker (finding) [facility] Start: 06-23-2020 End: 01-09-2023 History of Social function [facility] Start: 06-23-2020 End: 01-09-2023 Alcohol Use Disorder Identification Test - Consumption [AUDIT-C] [facility] How often to you hav e a drink containing alcohol? Never [facility] Average Number of Drinks Not on file [facility] Start: 05-23-2020 Gender identity Identifies as male gender (finding) [facility] Start: 04-22-2024 Sex Male (finding) [facility] Medical Equipment Procedure Code Equipment Code Equipment Origin al Text Equipment Identifier Dates [place] Thk1.65mm P tfe 4x.5in Cardiovascular Sterile - [id number] Start: 01-26-2023 [id number], [id number], [id number], [id number] Start: 02-02-2023 End: 11-08-2023 Comment on above: Use as instructed to check blood sugar 4 times a day Use to inject insuli n 4 times a day Use as directed to c heck blood sugars 4 times a day Functional Status Date Assessment Result Facility 02-02-2023 Are you deaf, or do you have serious difficulty hearing No 02/02/2023 2:02 PM Felicitas Patel RN [facility] 02-02-2023 Are you blind, or do you have serious difficulty seeing, even when wearing glasses No 02/02/2023 2:02 PM Felicitas Patel RN No [facility] 02-02-2023 Do you have serious difficulty walking or climbing stairs No 02/02/2023 2:02 PM Felicitas Patel RN No [facility] 02-02-2023 Do you have difficul ty dressing or bathing No 02/02/2023 2:02 PM Felicitas Patel RN No [facility] 02-02-2023 Because of a physica l, mental, or emotional condition, do you have difficulty doing errands alone such as visiting a physician's office or shopping No 02/02/2023 2:02 PM Felicitas Patel RN No [facility] 11-08-2022 Functional status Ambulates [facility] Work Phone: Mental Status Date Assessment Result Facility 02-02-2023 Because of a physica l, mental, or emotional condition, do you have serious difficulty concentrating, remembering, or making decisions No 02/02/2023 2:02 PM Felicitas Patel RN No [facility] 11-08-2022 Cognitive function Level Of Cons ciousness Awake;Alert;Appropriate;Fol lows Commands [facility] Work Phone: Clinical Notes 11-07-2022 to 08-06-2024 [...] at 2 PM at [facility]. Yola Berger [facility] 08-06-2024 Miscellaneous Notes LVM. Pt is [...] do both on the same day in [place]. Will see if AG Card Clinical can assist. Stevo Arora MA documented in this encounter [facility] 08-06-2024 Telephone encounter Note Pt needs to be scheduled with Dr. Ortiz in EP and also needs a 3 month follow up with Dr. Jordan. Pt is asking if he can do both on the same day in [place]. Will see if AG Card Clinical can assist. Stevo Arora MA [facility] 08-05-2024 Note HNO ID: [id number] Author: ELENA JORDAN MD Service: ? Author Type: Physician Type: Progress Notes Filed: 08/05/2024 08:46 Note Text: Elena Jordan MD Interventional Cardiology [address] [address] [phone] Chief Complaint Patient presents with: New Patient: transfer care from [facility] HISTORY OF PRESENT ILLNESS: Mr. Griffin is [...] work. He underwent CABG on 01/26/2023 at [facility], involving SULLIVAN to the LAD, vein grafts to the PDA and first obtuse marginal, and left radial artery to the ramus. He previously had 4 stents placed in 2008 at [facility] following an [place]. A recent echocardiogram revealed an LVEF of [...] as of 05/29/2024. He reports that his academic support director, Dr. Barrios, believes dialysis is inevitable but notes that his kidney function has remained stable for the past 2 years, which he attributes to his exercise routine. He denies any history of dialysis. He is currently under the care of Dr. Corcoran, his philosophy instructor, and Dr. Barrios, his academic support director, both at [facility]. He is scheduled for a follow-up echocardiogram on 09/04/2024 and sees his academic support director every 4 to 6 months, with the next appointment in November. 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 USE FOR CONTINUOUS [...] times a day. 180 tablet 0 Insulin [place], Disposable, (BD ULTRA-F (more content not included)... [facility] 08-05-2024 History of Presen t illness Narrative Images from the original note were not included. Elena Jordan MD Interventional Cardiology [address] [place], [place] [phone] Chief Complaint Patient presents with: New Patient: transfer care from [facility] HISTORY OF PRESENT ILLNESS: Mr. Griffin is [...] work. He underwent CABG on 01/26/2023 at [facility], involving SULLIVAN to the LAD, vein grafts to the PDA and first obtuse marginal, and left radial artery to the ramus. He previously had 4 stents placed in 2008 at [facility] following an [place]. A recent echocardiogram revealed an LVEF of [...] as of 05/29/2024. He reports that his academic support director, Dr. Barrios, believes dialysis is inevitable but notes that his kidney function has remained stable for the past 2 years, which he attributes to his exercise routine. He denies any history of dialysis. He is currently under the care of Dr. Corcoran, his philosophy instructor, and Dr. Barrios, his academic support director, both at [facility]. He is scheduled for a follow-up echocardiogram on 09/04/2024 and sees his academic support director every 4 to 6 months, with the next appointment in November. 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 USE FOR CONTINUOUS [...] times a day. 180 tablet 0 Insulin [place], Disposable, (BD ULTRA-FINE KENN PEN NEEDLE) 32 [...] schedule him to see electrophysiology service at [facility] 3. Primary hypertension - ICD9: 401.9, ICD10: [...] for a consultation with Dr. Ortiz at [facility] to discuss the ICD as a precautionary measure. His office will contact you to schedule this appointment. - Continue monitoring your blood pressure and kidney function through [employer]. Look specifically at your creatinine levels and blood pressure readings. If you notice any significant changes, please contact me. We discussed your kidney health: - Your kidney function is currently stable, with a creatinine level of 2.7 and a GFR of 30. However, your kidneys remain at risk due to your heart condition and medications. - I will communicate with your academic support director, Dr. Myrna Barrios, to ensure she is [...] In the meantime, please reach out via [employer] if you have any concerns or questions. [...] correct any errors. documented in this encounter [facility] 07-19-2024 Telephone encounter Note Electronically signed most recent OV note (addended by Monica Hoyt CNP previously) was faxed, once again, to [facility] at . Fax confirmation received. Shasta Garsia RN July 19, 2024 2:01 PM [facility] 07-19-2024 Miscellaneous Notes Electronically signed most [...] RN July 19, 2024 9:47 AM Phone aircraft sales representative for [facility] for clarification. Phone messages reports multiple faxes sent. Erica Inman MA [employer] he states that she sent the clinical notes but they were not signed.They are requesting from him that they are re sent over and signed. Please review and advise Cynthia documented in this encounter [facility] 07-19-2024 Telephone encounter Note Closing this encounter. Duplicate - being worked on in another encounter. Pending email and phone call out to [facility] rep. Shasta Garsia RN July 19, 2024 1:38 PM [facility] 07-19-2024 Miscellaneous Notes Closing this encounter. Duplicate - being worked on in another encounter. Pending email and phone call out to [facility] rep. Shasta Garsia RN July 19, 2024 1:38 PM documented in this encounter [facility] 07-19-2024 Telephone encounter Note Email sent to [facility] rep, Risa García, to inquire on the status of Pt's account and order for his CGM sensors. Shasta Garsia RN July 19, 2024 9:47 AM [facility] 07-18-2024 Telephone encounter Note Phone aircraft sales representative for [facility] for clarification. Phone messages reports multiple faxes sent. Eirca Inman MA [facility] 07-18-2024 Telephone encounter Note [employer] he states that she sent the clinical notes but they were not signed.They are requesting from him that they are re sent over and signed. Please review and advise Cynthia [facility] 07-01-2024 Telephone encounter Note Addended OV notes indicating Pt compliance with CGM use faxed to [facility] for existing order, along with most recent 2 week CGM download report. Fax confirmation received. Shasta Garsia RN July 01, 2024 10:24 AM [facility] 07-01-2024 Miscellaneous Notes Addended OV notes indicating Pt compliance with CGM use faxed to [facility] for existing order, along with most recent 2 week CGM download report. Fax confirmation received. Shasta Garsia RN July 01, 2024 10:24 AM documented in this encounter [facility] 06-07-2024 Evaluation note Diagnosis Onset Date [...] Ischemic cardiomyopathy chronic M ay 2024 3:23pm [facility] [employer] [facility] [facility] Work Phone: 1(288) 594-675704-25-2025 Evaluation note* Diagnosis Onset Date Resolution Status [...] Ischemic cardiomyopathy chronic M ay 2024 2:48pm [facility] Work Phone: 1(534) 298-143504-25-2025 Evaluation note* Diagnosis Onset Date Resolution Status [...] Ischemic cardiomyopathy chronic M ay 2024 2:48pm [facility] Work Phone: 1(138) 216-890504-18-2025 Telephone encounter Note* Telephone Encounter - Yadira Ahn MA - 05/31/2024 8:20 AM EDT [facility] faxed over a 'patient note' requesting most recent OV notes and patient's insurance cards. Printed electronically signed notes and attached insurance cards. Faxed and received confirmation. Filedin [facility] Patient notes Yadira Ahn MA [facility]04-18-2025 Miscellaneous Notes* Telephone Encounter - Yadira Ahn MA - 05/31/2024 8:20 AM EDT [facility] faxed over a 'patient note' requesting most recent OV notes and patient's insurance cards. Printed electronically signed notes and attached insurance cards. Faxed and received confirmation. Raheel BROWN Patient notes Yadira Ahn MA [facility]25 NoteHNO ID: [id number] Author: ERICA INMAN MA Service: ? Author Type: Senior Controls Analyst Type: Progress Notes Filed: 05/29/2024 11:57 Note Text:[facility]04-16-2025 History of Present illness Narrative* Erica Inman MA - 05/29/2024 11:28 AM EDT Images from the original note were not included. * Monica Hoyt, HAO.COSTUME DRAPER - 05/29/2024 11:26 AM EDT OFFICE VISIT [...] to OM2 /Left Radial to Ramus @ [facility] COLONOSCOPY FLX DX W/COLLJ SPEC WHEN PFRMD [...] PRE MEAL) TDD 20 units Blood-Glucose Sensor (AdociaSTYLE YAZMIN 3 SENSOR) kathleen CHANGE sensor every [...] mild post-op constipation & stool softening. Insulin [place], Disposable, (BD ULTRA-FINE KENN PEN NEEDLE) 32 [...] Wt 83.2 kg (183 lb 6.4 oz) IsJ895% BMI 25.94 kg/m GENERAL: alert and appropriate, in no distress and well-hydrated, well nourished SKIN: no rash noted HEAD: normocephalic, no abnormality or lesion noted EYES: PERRL NECK: full ROM, no cervical LNs noted ACANTHOSIS: none noted EXTREMITIES: no edema NEUROLOGIC: no obvious deficit ASSESSMENT/PLAN (E11.9) Controlled type 2 diabetes mellitus without complication, unspecified whether fixer boarding room insulin use (HCC) (primary encounter diagnosis) Comment: [...] A1C Monica Hoyt CNP [facility]25 NoteHNO ID: [id number] Author: MONICA HOYT APRN.COSTUME DRAPER Service: ? Author Type: Nurse Practitioner Type: [...] to OM2 /Left Radial to Ramus @ [facility] COL[place] FLX DX W/COLLJ SPEC WHEN PFRMD [...] needed thereafter for mi (more content not included)...[facility]01-02-2025 NoteHNO ID: [id number] Author: ?, ?, ? Service: ? Author Type: ? Type: Progress Notes Filed: 02/15/2024 11:46 Note Text: QOL Call Tracking Documentation Follow-Up Type: Phone Call Call Attempt: 1st Attempt Call Status: Patient will complete in [facility] 02-15-2024 History of Present illness Narrative* Rohini Cody - 02/15/2024 11:46 AM EST QOL Call Tracking Documentation Follow-Up Type: Phone Call Call Attempt: 1st Attempt Call Status: Patient will complete in MyChart [facility] NotePatient Outreach (CIUMN) GAMALIEL GRIFFIN ([id number]) 1955 M Date Time Provider [facility] your visit today, we recorded the following information about you: Rohini Cody 02/15/2024 11:46 AM Signed QOL Call Tracking Documentation Follow-Up Type: Phone Call Call Attempt: 1st Attempt Call Status: Patient will complete in [employer] Allergies As of Date: 02/15/2024 Noted Allergy [...] post-op constipation AND stool softening. - Insulin [place], Disposable, (BD ULTRA-FINE KENN PEN NEEDLE) 32 [...] 08/04/2023 Encounter Status:Closed by ROHINI CODY on 02/15/24[facility]11-20-2024 NoteHNO ID: [id number] Author: YESSENIA OCONNOR DO Service: ? Author Type: Physician Type: Progress Notes Filed: 01/03/2024 12:21 Note Text: [facility] [place] Velma Astorga Department of Cardiovascular Medicine SECTION OF [facility] OUTPATIENT VISIT DATE January 03, 2024 OUTPATIENT VISIT TYPE NEW PATIENT Name: Gamaliel Griffin : 1955 Date: January 03, 2024 PRIMARY CARE PHYSICIAN: [place] [address] REFERRING PHYSICIAN: No referring provider defined for this encounter. CHIEF COMPLAINT: Patient presents with: CARD Follow Up 6 Month: No new cardiac concerns IMPRESSION / PLAN: 1. Coronary artery disease status post coronary bypass grafting x 4 on January 26, 2023 at [facility] with a SULLIVAN to the LAD, [...] of coronary artery disease requiring CABG at [facility] in January 2023 and presents today [...] to OM2 /Left Radial to Ramus @ [facility] COLONOSCOPY FLX DX W/COLLJ SPEC WHEN PFRMD [...] 24 hr tablet Dimitris (more content not included)...[facility]11-20-2024 History of Present illness Narrative* Yessenia Oconnor, - 01/03/2024 11:49 AM EST Images from the original note were not included. [facility] [place] Velma Astorga Department of Cardiovascular Medicine SECTION OF [facility] OUTPATIENT VISIT DATE January 03, 2024 OUTPATIENT VISIT TYPE NEW PATIENT Name: Gamaliel Griffin : 1955 Date: January 03, 2024 PRIMARY CARE PHYSICIAN: MD John Menendez [address] [address] REFERRING PHYSICIAN: No referring provider defined for this encounter. CHIEF COMPLAINT: Patient presents with: CARD Follow Up 6 Month: No new cardiac concerns IMPRESSION / PLAN: 1. Coronary artery disease status post coronary bypass grafting x 4 on January 26, 2023 at [facility] with a SULLIVAN to the LAD, [...] of coronary artery disease requiring CABG at [facility] in January 2023 and presents today [...] to OM2 /Left Radial to Ramus @ [facility] COLONOSCOPY FLX DX W/COLLJ SPEC WHEN PFRMD [...] mild post-op constipation & stool softening. Insulin [place], Disposable, (INWEBTURE Limited ULTRA-FINE KENN PEN NEEDLE) 32 gauge x [...] rhythm with anteroseptal infarct Yessenia Oconnor DO, [facility] Staff Sterilization Technician Yessenia and Melva Chou Dept. of Cardiovascular Medicine Heart, Vascular [facility] Thor[facility] [place], [facility] This document was generated using the assistance of voice recognition software. If there are any errors of spelling, grammar, syntax or meaning, please feel free to contact me directly at anytime. documented in [facility]Del[facility]11-[facility]-2024 NoteHNO ID: [id number] Author: BERNARDINO HENRIQUEZ RN Service: ? 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 Has never been lower than 25. 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 Has never been lower than 25. Referred too soon and referral closed [facility]24 Telephone encounter Note * Telephone Encounter - Cely Dumont - 12/22/2023 12:20 PM EST KIDNEY TRANSPLANT REFERRAL (enter above which organ the patient needs; Kidney, Pancreas or Kidney/Pancreas) Is this referral for a Safety Net or HIV Patient? No (Safety Net = Pt needing an additional transplant within 12 months for any organ) Gamaliel Griffin [phone] Spoke with: Patient Best Contact FOR PANCREAS AND KIDNEY/PANCREAS TRANSPLANT AGE 55+ is a HARD STOP If patient is NOT on Dialysis & has a GFR >21 is a HARD STOP REFERRING COMB WINDER / PHYSICIAN:Dr. Denis Norris Have you ever [...] referral for transplant to your (OOS) Medicaid heel caser? No Height: 5.9 Weight: 170 BMI: [...] no Hx of Hypertension? Yes Hx of [place]/Heart Attack? Yes, 2013. [facility] Hx of TIA/CVA or Stroke? No Are you on a blood thinner? Yes If YES which medication are you on? Aspirin Have you had a CABG or STENTS? Yes. If yes, date and location: [address] [facility] Have you ever had a Stress Test? Yes. If yes, date and location: 2022 [facility] Have you ever had an Echo? Yes. If yes, date and location: 2022 [facility] Have you ever had a Cardiac Cath? Yes. If yes, date and location: [address] [facility] [address] Abdomen/Pelvis: No Mammogram: No Pap Test: No Colonoscopy: Yes. If yes, date and location: [facility] 2023 Hx of Lupus? No Sickle Cell Trait or Disease: No Have you had any prior surgeries? Yes, Quadruple bypass surgery in 2022 Do you have a potential living donor? No MyCHART Is the patient signed up for Gamelet? Yes If YES - send patient the Kidney/Pancreas New Referral Message. If NO - obtain their email address AND send [employer] sign up information: email address: [email or web address] Is the patient okay with having a Virtual Appt: Yes What facilities do we need outside records from: N/A Have records been retrieved from Care Everywhere: Yes. Have records been requested from [facility]? No Additional Comments about patient/evaluation: No Route the referral to the Kidney Txp delivery crew member, Bernardino Henriquez. Cely Dumont [facility]11-08-2024 Miscellaneous Notes* Telephone Encounter - Cely Dumont - 12/22/2023 12:20 PM EST KIDNEY TRANSPLANT REFERRAL (enter above which organ the patient needs; Kidney, Pancreas or Kidney/Pancreas) Is this referral for a Safety Net or HIV Patient? No (Safety Net = Pt needing an additional transplant within 12 months for any organ) Gamaliel Griffin [phone] Spoke with: Patient Best Contact FOR PANCREAS AND KIDNEY/PANCREAS TRANSPLANT AGE 55+ is a HARD STOP If patient is NOT on Dialysis & has a GFR >21 is a HARD STOP REFERRING COMB WINDER / PHYSICIAN:Dr. Denis Norris Have you ever [...] referral for transplant to your (OOS) Medicaid heel caser? No Height: 5.9 Weight: 170 BMI: [...] no Hx of Hypertension? Yes Hx of [place]/Heart Attack? Yes, 2013. [facility] Hx of TIA/CVA or Stroke? No Are you on a blood thinner? Yes If YES which medication are you on? Aspirin Have you had a CABG or STENTS? Yes. If yes, date and location: [address] [facility] Have you ever had a Stress Test? Yes. If yes, date and location: 2022 [facility] Have you ever had an Echo? Yes. If yes, date and location: 2022 [facility] Have you ever had a Cardiac Cath? Yes. If yes, date and location: [address] Abdomen/Pelvis: No Mammogram: No Pap Test: No Colonoscopy: Yes. If yes, date and location: [facility] 2023 Hx of Lupus? No Sickle Cell Trait or Disease: No Have you had any prior surgeries? Yes, Quadruple bypass surgery in 2022 Do you have a potential living donor? No [employer] Is the patient signed up for Gamelet? Yes If YES - send patient the Kidney/Pancreas New Referral Message. If NO - obtain their email address AND send [employer] sign up information: email address: Is the patient okay with having a Virtual Appt: Yes What facilities do we need outside records from: N/A Have records been retrieved from Care Everywhere: Yes. Have records been requested from [facility]? No Additional Comments about patient/evaluation: No Route the referral to the Kidney Txp delivery crew member, Bernardino Henriquez. Cely Dumont documented in this encounterDelaware [facility]11-[facility] Telephone encounter Note * Telephone Encounter - Patrick Mattson RN - 12/19/2023 11:41 AM EST Called pt gave him number to [facility] HOME DELIVERY - [facility] [place], [place] - [phone] To call about Maurisio as he had in the past. [facility]11-05-2024 Miscellaneous Notes* Telephone Encounter - Patrick Mattson RN - 12/19/2023 11:41 AM EST Called pt gave him number to [facility] DELIVERY - [facility] [place], [place] - [phone] To call about Maurisio as he had in the past. documented in this encounterDelaware County Hospital09-25-2024 Instructions* Patient Instructions* Monica Hoyt APRN.[facility] - 11/08/2023 9:57 AM EDT LANTUS [...] glucose does not improve. documented in this encounterDelaware County Hospital09-25-2024 NoteHNO ID: [id number] Author: SHASTA GARSIA RN Service: ? Author Type: Registered Nurse Type: Progress Notes Filed: 11/08/2023 10:01 Note Text:[facility]09-25-2024 History of Present illness Narrative* Shasta [...] count Yes - saw DM nurse at OR 40 grams per meal - DIETARY HISTORY: [...] Type of Monitor: Other Frequency of Monitoring: [facility] YAZMIN CGM times a day Pt NOT [...] to OM2 /[place] Rad[place] [facility] [place] COLONOSCOPY FLX DX W/COLLJ SPEC WHEN [...] (3 mL) Taking 20 units [facility] the [facility] Blood-Glucose Sensor (FREESTYLE YAZMIN 3 SENSOR) kathleen [...] units. 351- 400 = 10 units. Insulin [place], Disposable, (BD ULTRA-FINE KENN PEN NEEDLE) 32 [...] 2 diabetes mellitus without complication, unspecified whether fixer boarding room insulin use (HCC) (primary encounter diagnosis) Comment: [...] A1C Monica Hoyt CNP documented in this encounterDelaware County Hospital09-25-2024 NoteHNO ID: [id number] Author: MONICA HOYT APRN.CNP Service: ? Author [...] count Yes - saw DM nurse at OR 40 grams per meal - DIETARY HISTORY: [...] Type of Monitor: Other Frequency of Monitoring: Adocia[employer] YAZMIN CGM times a day Pt NOT [...] -- -- 3.45 L (more content not included)...[facility]09-10-2024 Nurse Note * Karissa Arana RN - 10/24/2023 8:55 AM EDT Patient has Libre3 glucose monitoring device, Dr Mack aware and says it is acceptable to have post procedure glucose checked with his device. Glucose is 123 at this time. [facility]09-10-2024 Nurse Note* Karissa Arana RN - [...] comfortably on left side. documented in this encounterDelaware County Hospital09-10-2024 Note* Discharge Instr - Nursing - Karissa Arana RN - 10/24/2023 8:21 AM EDT The patient received a copy of Colonoscopy discharge instructions that contain information for how to contact the physician who performed the procedure and when to seek medical care. [facility]09-10-2024 Miscellaneous Notes* Discharge Instr - Nursing - Karissa Arana RN - 10/24/2023 8:21 AM EDT The patient received a copy of Colonoscopy discharge instructions that contain information for how to contact the physician who performed the procedure and when to seek medical care. documented in this encounterDelaware County Hospital09-10-2024 Nurse Note* Karissa Arana RN - 10/24/2023 8:13 AM EDT Patient received in phase II via cart in left lateral position, eyes closed but open to verbal stimuli, skin warm and dry, respirations regular and unlabored, abdomen soft and non distended. Denies pain, nausea, or cramping. Resting comfortably on left side. [facility]09-10-2024 Attending History and physical note* Carolee [...] to OM2 /Left Radial [place] [facility] [place] [facility] [place]ONOS[place] FLX DX W/COLLJ SPEC WHEN PFRMD [...] (3 mL) Taking 20 units [facility] Blood-Glucose Sensor (FREESTYLE YAZMIN 3 SENSOR) kathleen [...] units. 351- 400 = 10 units. Insulin [place], Disposable, (BD ULTRA-FINE KENN PEN NEEDLE) 32 [...] (98 F), height 175.3 cm (5' 9), klvgeu06.1 kg (183 lb 3.2 oz), SpO2 98%. [...] testing has been completed. Jennifer Smith MD [facility]09-10-2024 History and physical note* Carolee Mack [...] to OM2 /Left Radial to Ramus @ [facility] COLONOSCOPY FLX DX W/COLLJ SPEC WHEN PFRMD [...] units. 351- 400 = 10 units. Insulin [place], Disposable, (BD ULTRA-FINE KENN PEN NEEDLE) 32 [...] (98 F), height 175.3 cm (5' 9), zizxwx23.1 kg (183 lb 3.2 oz), SpO2 98%. [...] after the testing has been completed. Jennifer Smtih MD [facility]09-10-2024 History and physical note* Carolee Mack [...] to OM2 /Left Radial to Ramus [place] [facility] COLONOSCOPY FLX DX W/COLLJ SPEC WHEN PFRMD [...] (3 mL) Taking 20 units in the [facility] Blood-Glucose Sensor (FREESTYLE YAZMIN 3 SENSOR) kathleen [...] units. 351- 400 = 10 units. Insulin [place], Disposable, (BD ULTRA-FINE KENN PEN NEEDLE) 32 [...] (98 F), height 175.3 cm (5' 9), elqskt84.1 kg (183 lb 3.2 oz), SpO2 98%. [...] to OM2 /Left Radial to [facility] [place] [facility] COLONOSCOPY FLX DX W/COLLJ SPEC WHEN PFRMD [...] (3 mL) Taking 20 units in the [facility] Blood-Glucose Sensor (FREESTYLE YAZMIN 3 SENSOR) kathleen [...] units. 351- 400 = 10 units. Insulin [place], Disposable, (BD ULTRA-FINE KENN PEN NEEDLE) 32 [...] (98 F), height 175.3 cm (5' 9), owpcru71.1 kg (183 lb 3.2 oz), SpO2 98%. [...] completed. Jennifer Smith MD documented in this encounterDelaware County Hospital06-21-2024 History of Present illness Narrative* Jennifer [...] to OM2 /Left Radial to Ramus [place] [facility] [place]ONOSCOPY FLX DX W/COLLJ SPEC WHEN PFRMD 06/23/2020 PAST SURGICAL HISTORY OF Cardiac stent x 4 Current Outpatient Medications Medication Sig peg 3350-Electrolytes (GOLYTELY) 236-22.74-6.74 -5.86 gram suspension Take 4,000 mL by mouth one time only for 1 dose. Refer to printed prep instructions from your provider. insulin glargine (LANTUS SOLOSTAR U-100 INSULIN) 100 unit/mL (3 mL) Taking 20 units in the [facility] Blood-Glucose Sensor (FREESTYLE YAZMIN 3 SENSOR) kathleen [...] units. 351- 400 = 10 units. Insulin [place], Disposable, (BD ULTRA-FINE KENN PEN NEEDLE) 32 [...] (98 F), height 175.3 cm (5' 9), pdzhow54.1 kg (183 lb 3.2 oz), SpO2 98%. [...] completed. Jennifer Smith MD documented in this encounterDelaware County Hospital06-21-2024 Instructions* Patient Instructions* Jennifer Smith MD [...] If you do not have a responsible driver supervisor (family member or friend) with you to [...] until midnight. 2 01/2019 documented in this encounterDelaware County Hospital06-18-2024 History of Present illness Narrative* Rohini Cody - 08/01/2023 1:20 PM EDT QOL Call Tracking Documentation Follow-Up Type: Phone Call Call Attempt: 1st Attempt Call Status: Left Message documented in this encounterDelaware County Hospital05-16-2024 Telephone encounter Note * Telephone Encounter - Patrick Mattson RN - 06/29/2023 4:16 PM EDT [facility] 06/28/23 Dr. Michael 2. Hypertension. Patient is [...] venous harvesting of both legs and amlodipine. [facility]05-16-2024 Miscellaneous Notes* Telephone Encounter - Patrick Mattson RN - 06/29/2023 4:16 PM EDT [facility] 06/28/23 Dr. Michael 2. Hypertension. Patient is [...] both legs and amlodipine. documented in this encounterDelaware County Hospital05-15-2024 History of Present illness Narrative* Yessenia Oconnor DO - 06/28/2023 9:46 AM EDT Heart and Vascular [place] Velma Astorga Department of Cardiovascular Medicine SECTION OF [facility] OUTPATIENT VISIT DATE June 28, 2023 OUTPATIENT VISIT TYPE NEW PATIENT Name: Gamaliel Griffin : 1955 Date: June 28, 2023 PRIMARY CARE PHYSICIAN: MD John Menendez MONIQUE [address] [phone] REFERRING PHYSICIAN: No referring provider defined for this encounter. CHIEF COMPLAINT: Patient presents with: CARD New Patient Consult: [facility] - CAD 01/26/2023: CABGx4: [place] [...] of coronary artery disease requiring CABG at [facility] in January 2023 and presents today [...] to OM2 /Left Radial to [facility] [place] [facility] COLONOSCOPY FLX DX W/COLLJ SPEC WHEN PFRMD [...] (3 mL) Taking 20 units in the [facility] Blood-Glucose Sensor (FREESTYLE YAZMIN 3 SENSOR) kathleen [...] units. 351- 400 = 10 units. Insulin [place], Disposable, (BD ULTRA-FINE KENN PEN NEEDLE) 32 [...] Cardiovascular testing perfomed today. Yessenia Oconnor DO, [facility] Staff Sterilization Technician Yessenia and Melva Chou Dept. of Cardiovascular Medicine Heart, Vascular and Thoracic [place], [facility] This document was generated using the assistance of voice recognition software. If there are any errors of spelling, grammar, syntax or meaning, please feel free to contact me directly at anytime. documented in this encounterDelaware County Hospital04-08-2024 Miscellaneous Notes* Telephone Encounter - Cielo Urbano MA - 05/22/2023 10:57 AM EDT HelpHub message was sent back to the patient. documented in this encounterDelaware County Hospital03-27-2024 Miscellaneous Notes* Addendum Note - Monica Hoyt APRN.CNP - 05/10/2023 10:46 AM EDTAddended by: MONICA HOYT on: 05/10/2023 10:46 AM Modules accepted: Orders documented in this encounterDelaware County Hospital03-27-2024 History of Present illness Narrative* Monica [...] count Yes - saw DM nurse at OR 40 grams per meal - DIETARY HISTORY: [...] Type of Monitor: Other Frequency of Monitoring: [employer] CGM times a day Pt NOT SHARED [...] units. 351- 400 = 10 units. Insulin [place], Disposable, (BD ULTRA-FINE KENN PEN NEEDLE) 32 [...] disease, with long-term current use of insulin ([facility]) (primary encounter diagnosis) Comment: Excellent control Patient [...] A1C Monica Hoyt CNP documented in this encounterDelaware County Hospital03-19-2024 History of Present illness Narrative* Latricia Parekh RN - 05/02/2023 1:51 PM EDT QOL Call Tracking Documentation Follow-Up Type: Phone Call Call Attempt: 1st Attempt Call Status: Patient will complete in MyChart documented in this encounterDelaware County Hospital03-05-2024 Instructions* Patient Instructions* Sary Gordon MD - 04/18/2023 10:18 AM EST Please get the ultrasound of your heart I will be in touch once the results come back documented in this encounterDelaware County Hospital03-05-2024 History of Present illness Narrative* Sary Gordon MD - 04/18/2023 9:38 AM EST Images from the original note were not included. Heart and Vascular [place] [facility] SECTION OF HEART FAILURE and CARDIAC TRANSPLANT MEDICINE OUTPATIENT VISIT DATE April 18, 2023 OUTPATIENT VISIT TYPE Established Patient PRIMARY CARE PHYSICIAN: [place] [address] CHIEF COMPLAINT: Follow-up NURSING INTAKE (Patient s [...] units. 351- 400 = 10 units. Insulin [place], Disposable, (BD ULTRA-FINE KENN PEN NEEDLE) 32 [...] ABNORMAL ECG Confirmed by MEGGAN TEMPLETON MD ([id number]) on 03/01/2023 10:58:[address] Result Conclusion CT CHEST CARDIAC WO IVCON Exam End: 01/09/2023 2:43 PM (Final result) Impression: IMPRESSION: 1. Ectasia of aortic root (4.6 x 4.4 cm, area: 13.8 cm2), and mid ascending thoracic aorta (4.4 cm, area: 15.1 cm2). Pattern of calcific wall changes as described in the body of the report. 2. Diffuse coronary artery calcifications. Resident Care Aid: MACIEJ Transcribe Date/Time: Jan 09 2023 3:58P [...] * * Final * * * RP Resident Care Aid: ABHIJEET Transcribe Date/Time: Jan 09 2023 5:22P [...] like to establish care with [facility] in [place] because it is closer to his house I personally interviewed, confirmed and edited the above information as obtained by others. We discussed natural history of disease, current treatment options, and future potential treatment options.We discussed diet, exercise, other non- medical management as above. Sary Gordon MD [facility] Section Of Heart Failure and Cardiac Transplant Medicine Heart [facility] [place] [facility] Desk J[address] [place] [address] documented in this encounterDelaware County Hospital02-09-2024 NoteHNO ID: [id number] Author: ROD FERNANDEZ Coal Trimmer Machine Operator Service: ? Author Type: Coal Trimmer Machine Operator Type: Progress Notes Filed: 03/24/2023 [...] Daily Exercise Log will be scanned into Nomi once it is completed. These can be [...] Treatment Plan, and education sessions covered. Toyin RodriguezKettering Health [id number] History of Present illness Narrative* Rod Fernandez Coal Trimmer Machine Operator - 03/24/2023 1:41 PM EST Images from the original note were not included. Cardiac Rehabilitation [facility] Based Program Supervising Physician: Ricarda Medley [...] Daily Exercise Log will be scanned into Nomi once it is completed. These can be [...] Plan, and education sessions covered. Rod Fernandez Coal Trimmer Machine Operator documented in this encounterDelaware County Hospital02-07-2024 NoteHNO ID: [id number] Author: JACOB GUNTER, eye dropper assembler Service: ? Author Type: Automobile Insurance Claim Examiner Type: Progress Notes Filed: 03/22/2023 13:51 Note [...] Daily Exercise Log will be scanned into Nomi once it is completed. These can be [...] and education sessions covered. Jacob Gunter, Exercise PhysiologistKettering Health [id number] History of Present illness Narrative* Jacob Gunter, eye dropper assembler - 03/22/2023 1:50 PM EST Images from [...] Daily Exercise Log will be scanned into Nomi once it is completed. These can be [...] Plan, and education sessions covered. Jacob Gunter, Coal Trimmer Machine Operator documented in this encounterDelaware County Hospital02-05-2024 Miscellaneous Notes* Telephone Encounter - Iris Shultz RN - 03/20/2023 2:02 PM EST Completed in additional encounter. Hodan Shultz RN March 20, 2023 2:02 PM * Telephone Encounter - Lu Suh - 03/15/2023 7:50 AM EST Recd FMLA and short term disability paperwork, gave to the nurses. Lu documented in this encounterDelaware County Hospital02-02-2024 NoteHNO ID: [id number] Author: ROD FERNANDEZ Coal Trimmer Machine Operator Service: ? Author Type: Coal Trimmer Machine Operator Type: Progress Notes Filed: 03/17/2023 [...] Daily Exercise Log will be scanned into Nomi once it is completed. These can be [...] and education sessions covered. Rod Fernandez, Exercise PhysiologistKettering Health [id number] NoteHNO ID: [id number] Author: RICARDA PINO DO Service: ? Author Type: Coal Trimmer Machine Operator Type: Progress Notes Filed: 03/24/2023 17:11 Note Text: Attestation signed by Ricarda Pino DO at 03/24/2023 5:11 PM I have reviewed the detailed Individualized Treatment Plan assessment and plan for the patient as described above and agree with the recommendations. Ricarda Pino DO, FACC, FACOI Clinical and Preventive Cardiology Department of Medicine and Division of Cardiology, [facility] Staff Sterilization Technician, Velma Chou Department of Cardiovascular Medicine/Heart and Vascular [place], [facility] Clinical orthotic assistant Profressor of Medicine, [facility] Heart and Vascular [place] Velma Astorga Department of Cardiovascular Medicine Initial [...] units. 351- 400 = 10 units. Insulin [place], Disposable, (BD ULTRA-FINE KENN PEN NEEDLE) 32 [...] 27.82 kg/(m2). INDIVIDUAL TREATMENT PLAN Program Location: [place] Cardiac Rehab evaluation site : [facility] Cardiac Rehab Completed : [place] Program: Entry Phase II Primary Reason For Referral: CABG EXERCISE ASSESSMENT Current Exercise: Yes Type of Exercise: Walk;Strength (walks around house and has strength training machine at home) Exercise Du (more content not included)...[facility]tering [facility] [id number] History of Past illness Narrative* Problem Noted [...] of this encounter (statuses as of 02/02/2023) [facility] History of Past illness Narrative* Problem [...] of this encounter (statuses as of 03/21/2023) [facility] History of Past illness Narrative* Problem [...] of this encounter (statuses as of 03/23/2023) [facility] History of Past illness Narrative* Problem [...] of this encounter (statuses as of 03/24/2023) [facility] History of Past illness Narrative* Problem [...] of this encounter (statuses as of 03/27/2023) [facility] History of Past illness Narrative* Problem [...] of this encounter (statuses as of 04/18/2023) [facility] History of Past illness Narrative* Problem [...] of this encounter (statuses as of 05/02/2023) [facility] History of Past illness Narrative* Problem [...] of this encounter (statuses as of 05/11/2023) [facility] History of Past illness Narrative* Problem [...] of this encounter (statuses as of 05/22/2023) [facility]12-04-2023 Miscellaneous Notes* Telephone Encounter - Nadine Shankar RN - 01/16/2023 2:26 PM EST CARE CONTINUUM ADVISOR ASSESSMENT PRIMARY CARE PHYSICIAN: Piedad Han MD, MD OR Surgery Date: 01/26/23 [facility] Appointment: 01/25/23 Health Insurance: Medicare A&B, [facility] 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 Primary Contact: Extended Emergency Contact Information Primary Emergency Contact: MADIE GRIFFIN Address: [address] [place] [address] Mobile Relation: Spouse Secondary Emergency Contact: Buffy Lee [facility] [place] Mobile Relation: Daughter Other Important Patient Contacts: None Patient/Ambulance Officer Stated Goals: To have reduction in symptoms and To improve my functional status Forensic Sergeant needed?: No Home Phone Primary Contact: YELITZA [...] and stay w/sister in law close by [place] Medication Adherence: Do you have any concerns with your prescription medication?: No Who do you use for pharmacy?: [facility] [address] [place] [phone] [address] [facility] - [phone] Pre-Hospital Baseline Mental Status: Alert & Oriented Informant: Self What is your current functional status?: Perform ADLs independently Equipment: Do you currently use any equipment at home for your medical condition or to help you get around? Bi-level Positive Airway Pressure/Continuous Positive Airway Pressure CPAP at night, will bring Active Services/Needs: None Do you have a community cultural development officer contact through your insurance or WRAAA?: No Has the Patient Been in a [facility] Facility in the Past 30 days? No FREEDOM OF CHOICE: Level of Care Discussed: Home Care, [facility] Facility, Inpatient Rehab Facility, [facility], and Cardiac rehab Financial Disclosure Provided: No Financial Disclaimer Provided: Yes, regarding pre-cert / insurance authorization Provider List: Home Care Provider list within the patient's requested geographic area shared with the patient/family: Yes - Within [address] of [address] [place] [address] Provider Choices Collected Home Health: [facility], [facility], and [facility] Interventions: Discussed importance of active PCP relationship and follow up Discussed insurance risks, gaps, and programs available Advanced Directives Education Discussed reliable transportation needs for surgery and follow up appointments Discussed prescription medications adherence Nadine Shankar, RN documented in this [facility]23 Miscellaneous Notes* Telephone Encounter - Erica [...] given to pt n/a documented in this encounterDel[facility]11-28-[facility]23 History of Present illness Narrative* Raúl Xiao MD - 01/10/2023 4:14 PM EST Images from the original note were not included. [facility] V[facility] [place] DEPARTMENT OF CARDIAC SURGERY OUTPATIENT VISIT DATE January 10, 2023 OUTPATIENT VISIT SERVICE DATE: 01/10/2023 SERVICE TIME: 4:32 PM PCP: MD John Menendez RD [facility] [address] [place] [address] Referring Physician: Raúl Xiao [address] [facility] [address] Patient Type: New Visit to Determine Surgery: [...] the report. 2. Diffuse coronary artery calcifications. Resident Care Aid: MACIEJ Transcribe Date/Time: Jan 09 2023 3:58P [...] * * Final * * * RP Resident Care Aid: ABHIJEET Transcribe Date/Time: Jan 09 2023 5:22P [...] record Raúl Xiao MD documented in this encounterDel[facility]11-27-2023 Miscellaneous Notes* Telephone Encounter - Celestina [...] In Department of CARDIOLOGY. documented in this encounterDel[facility]10-23-[facility]23 Miscellaneous Notes* Telephone Encounter - Erica Mejias RN - 12/05/2022 1:28 PM EDT diagnosis: CAD history: PCI in 2008, ICM, CKD3, DM2, HTN, HLD, hypothyroid, JESENIA, gout blood thinners: asa 81 * Telephone Encounter - Latricia Iyer RN - 12/05/2022 1:11 PM EDT Discussed with Mr. Griffin the recommendation from Dr. Mejia [facility] Mr. Griffin is agreeable to proceed [...] Dr. Ibarra for CAD. documented in this encounterDel[facility] Hospital10-11-2023 Miscellaneous Notes* Telephone Encounter - Stevo Arora - 11/23/2022 10:09 AM EDT After sending the message I saw that they are actually referring to [facility]. Call to Dr. Ibarra at [facility]. Informed them that patient has still not secured an appt at [facility] and explained the confustion of the situation. Nurse, Mckenna, is going to forward the message to the nurse that works directly with Dr. Ibarra. I did offer to assist in getting the patient scheduled at [facility] if needed. They are going to reach out to the patient. Stevo Arora MA documented in this encounterDelaware County Hospital10-06-2023 Miscellaneous Notes* Telephone Encounter - Whit Alcaraz MA - 11/18/2022 8:[address] Luis reviewed patient Henny Echocardiogram and referral information. After review. Dr. Luis advised that the patient would be best cared for at the [facility] This was based on the patient EF [...] PM EDTSummary: Referral Received a referral from [facility] the office of Dr. Ibarra. Patient is referred for atherosclerotic heart disease. documented in this encounterDelaware County Hospital09-25-2023 Discharge summary Author Pedro Ibarra [facility] November 08, 2022 9:15am Note Date/Time November 07, 2022 10:20am [facility] Medical Records Department [address] [place] [address] Instructions for Home/Discharge Instructions 11/07/22 1018 MR#: [id number] Acct: [id number] Name: GAMALIEL GRIFFIN Rep #:[id number] : 1955 66 From: Pedro Ibarra MD PCP: Dr. Piedad Han MD [...] CC: Dr. 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 [facility] Work Phone: Evaluation note* Diagnosis Coronary artery disease involving [place] coronary artery of [place] heart with angina pectoris (HCC)- Primary Ischemic cardiomyopathy Other specified forms of chronic ischemic heart disease Stage 3 chronic kidney disease, unspecified whether stage 3a or 3b CKD (HCC) Type 2 diabetes mellitus without complication, unspecified whether shelter insulin use (HCC) Hypothyroidism, unspecified type Primary hypertension Unspecified essential hypertension Hyperlipidemia, unspecified hyperlipidemia type Chest pain, unspecified type Coronary artery disease involving [place] coronary artery of [place] heart with angina pectoris (HCC) Ischemic cardiomyopathy Other specified forms of chronic ischemic heart disease Stage 3 chronic kidney disease, unspecified whether stage 3a or 3b CKD (HCC) Type 2 diabetes mellitus without complication, unspecified whether fixer boarding room insulin use (HCC) Hypothyroidism, unspecified type Primary hypertension Unspecified essential hypertension Hyperlipidemia, unspecified hyperlipidemia type documented in this encounter [facility]* Diagnosis Cardiomyopathy, ischemic Other specified forms of chronic ischemic heart disease Coronary artery disease involving [place] heart with angina pectoris, unspecified vessel or [...] Heart disease, unspecified Coronary artery disease involving [place] coronary artery of [place] heart with angina pectoris (HCC) Ischemic cardiomyopathy Other specified forms of chronic ischemic heart disease Stage 3 chronic kidney disease, unspecified whether stage 3a or 3b CKD (HCC) Type 2 diabetes mellitus without complication, unspecified whether fixer boarding room insulin use ([facility]) Hypothyroidism, unspecified type Primary hypertension Unspecified essential hypertension Hyperlipidemia, unspecified hyperlipidemia type [facility]* Diagnosis Chest pain, unspecified type- Primary Surgery follow-up Follow-up examination, following unspecified surgery documented in this encounter [facility]* Diagnosis S/P CABG (coronary artery bypass graft)- Primary Postsurgical aortocoronary bypass status documented in this encounter [facility]* Diagnosis S/P CABG (coronary artery bypass graft)- Primary Postsurgical aortocoronary bypass status documented in this encounter [facility]* Diagnosis Chronic systolic HF (heart failure) ([facility])- Primary Chronic systolic heart failure Cardiomyopathy, ischemic Other specified forms of chronic ischemic heart disease Coronary artery disease involving [place] heart with angina pectoris, unspecified vessel or [...] of insulin (HCC) [facility] this [facility]* Diagnosis Type 2 diabetes mellitus with stage 3b chronic kidney disease, with long-term current use of insulin (HCC)- Primary documented in this encounter [facility]* Diagnosis Coronary artery disease involving [place] coronary artery of [place] heart without angina pectoris- Primary Pure hypercholesterolemia Essential hypertension Unspecified essential hypertension Cardiomyopathy, ischemic Other specified forms of chronic ischemic heart disease [facility]* Diagnosis Special screening for malignant neoplasms, colon- Primary Hyperparathyroidism (HCC) Hyperparathyroidism, unspecified [facility]* Diagnosis Screening for colon cancer- Primary Special screening for malignant neoplasms, colon Special screening for malignant neoplasms, colon documented in this encounter [facility]* Diagnosis Controlled type 2 diabetes mellitus without complication, unspecified whether shelter insulin use (HCC)- Primary documented in this encounter [facility] note* Diagnosis Pre-transplant evaluation for CKD (chronic kidney disease)- Primary Other specified pre-operative examination CKD (chronic kidney disease) stage 4, GFR 15-29 ml/min ([facility]) Chronic kidney disease, Stage IV (severe) Hypertension, unspecified type documented in this encounter [facility] note* Diagnosis Coronary artery disease involving [place] coronary artery of [place] heart without angina pectoris- Primary Ischemic cardiomyopathy Other specified forms of chronic ischemic heart disease Pure hypercholesterolemia Essential hypertension Unspecified essential hypertension documented in this encounter [facility]* Diagnosis Controlled type 2 diabetes mellitus without complication, unspecified whether fixer boarding room insulin use (HCC)- Primary documented in this encounter [facility] note* Diagnosis Systolic congestive heart failure, unspecified HF chronicity ([facility])- Primary Hx of CABG Postsurgical aortocoronary bypass status Primary hypertension Unspecified essential hypertension Atrial fibrillation with RVR (HCC) Atrial fibrillation Hypertensive kidney disease with stage 3a chronic kidney disease (HCC) Encounter for adjustment and management of automatic implantable cardiac defibrillator documented in this encounter [facility] for referral (narrative)* Outpatient Procedure (Routine) - Authorized Specialty Diagnoses / Procedures Referred By Sergio t Ref[facility] Diagnoses Surgery follow-up Procedures ECG COMPLETE ECG ROUTINE ECG W/LEAST 12 LDS W/I&R Raúl Xiao MD [address] [id number] [place] [address] Referral ID Status Reason Start Date Expiration Date Visits Requested Visits Authorized [id number] Authorized Auto-Generat ed Referral 3 02/01/2024 1 1 [facility] for referral (narrative)* Outpatient Procedure (Routine) - Authorized Specialty Diagnoses / Procedures Referred By Sergio t Referred To [facility] Diagnoses Special screening for malignant neoplasms, colon Procedures COLONOSCOPY SCREENING COLONOSCOPY FLX DX W/COLLJ SPEC WHEN Jennifer Gifford MD [address] [id number] [facility] Disease [address] [address] Referral ID Status Reason Start Date Expiration Date Visits Requested Visits Authorized [id number] Authorized Auto-Generat ed Referral 08/04/2023 08/03/2024 1 1 T [facility] for referral (narrative)* Outpatient Procedure (Routine) - Closed Specialty Diagnoses / Procedures Referred By Sergio luque Referred To [facility] Diagnoses Special screening for malignant neoplasms, colon Procedures COLONOSCOPY SCREENING COLONOSCOPY FLX DX W/COLLJ SPEC WHEN Jennifer Gifford MD [address] [address] [facility] [address] [address] Referral ID Status Reason Start Date Expiration Date V isits Requested Visits Authorized [id number] Closed Auto-Generate d Referral 08/04/2023 08/03/2024 1 1 [facility] (narrative)No reason for referral information availableWMiddletown Hospital Work Phone: Reason for visit Narrative* Outpatient Procedure (Routine) - Closed Specialty Diagnoses / Procedures Referred By Sergio luque Referred To Contact [facility] Diagnoses Special screening for malignant neoplasms, colon Procedures COLONOSCOPY SCREENING COLONOSCOPY FLX DX W/COLLJ SPEC WHEN P[facility] Jennifer Smith MD [address] [address] [facility] [place] [address] [place] [address] Referral ID Status Reason Start Date Expiration Date V isits Requested Visits Authorized [id number] Closed Auto-Generate d Referral 08/04/2023 08/03/2024 1 1 [facility] Chief Complaint and Reason for Visit [...] stage 3 due to type 2 diabetes [facility] June 21, 2024 3:23pm Coronary artery disease [...] stage 3 due to type 2 diabetes [facility] June 07, 2024 3:18pm Coronary artery disease June 07, 2024 3:18pm Dyslipidemia June 07, 2024 3:1 8pm Hypertension June 07, 2024 3:1 8pm Ischemic cardiomyopathy June 07, 2024 3:18pm CKD stage 3 due to type 2 diabetes [facility] June 21, 2024 3:23pm Coronary artery disease [...] stage 3 due to type 2 diabetes [facility] June 07, 2024 3:18pm Coronary artery disease June 07, 2024 3:18pm Dyslipidemia June 07, 2024 3:1 8pm Hypertension June 07, 2024 3:1 8pm Ischemic cardiomyopathy June 07, 2024 3:18pm CKD stage 3 due to type 2 diabetes [facility] June 21, 2024 3:23pm Coronary artery disease June 21, 2024 3: 23pm Dyslipidemia June 21, 2024 3:23pm Hypertension June 21, 2024 3:23pm Ischemic cardiomyopathy June 21, 2024 3: 23pm Atrial tachycardia July 12, 2024 2:48p m CKD stage 3 due to type 2 diabetes [facility] July 12, 2024 2:48pm Coronary artery [...] No November 07, 2022 4:27pm Power of Water Use Inspector No October 4:27pm Advance Directive Response Recorded Date/ Time Advance Directives No October 6:46am Living Will No November 07, 2022 3:27pm Power of Water Use Inspector No October 3:27pm Advance Directive Response Recorded Date/ Time Advance Directives No October 7:46am Advance Directive Response Recorded Date/ Time Living Will No November 07, 2022 4:27pm Do you have a Healthcare Power of Water Use Inspector? No November 07, 2022 4:27pm Advance Directives No October 7:46am Summary Purpose Reason for Referral Specialty Diagnoses / Procedures Referred By Sergio t Referred To Contact [facility] [place] Procedures CARDIOVASCULAR MEDICINE OP FOLLOW UP APPT ORDER Sary Gordon MD [address] [place] [address] [facility] [place] [address] [place] [address] Referral ID Status Reason Start Date Expiration Date Visits Requested Visits Authorized [id number] Ref Not Required PCP Requested Referral 04/18/2023 [...] W & W/O CONTRAST Ari Suggs MD [address] [place] [address] [facility] [address] [address] Referral ID Status Reason Start Date Expiration Date Visits Requested Visits Authorized [id number] Pending Review Financial Clearance Required - OON [...] Dr. Pedro Ibarra MD Attending Provider Active Ergonomics Technician Relationship Specialty Start Date End Date Piedad Han MD [address] [facility] [address] [place], [place] [address] PCP - General Family Medicine 06/01/20 Ergonomics Technician Relationship Specialty Start Date End Date Piedad Han MD [address] [facility] [address] [place], [place] [id number] PCP - General Family Medicine 06/01/20 Ergonomics Technician Relationship Specialty Start Date End Date Piedad Han MD [address] [facility] [address] [place], [place] [address] PCP - General Family Medicine 06/01/20 Ergonomics Technician Relationship Specialty Start Date End Date Piedad Han MD [address] [place] [address] [place] [address] PCP - General Family Medicine 06/01/20 Pedro Ibarra MD [address] [place] [address] Cardiology 11/24/22 Rúal Xiao MD [address] [place], [place] [id number] Surgeon Cardiac Surg 12/05/22 Ergonomics Technician Relationship Specialty Start Date End Date Piedad Han MD [address] [facility] [address] [place] [address] PCP - General Family Medicine 06/01/20 Pedro Ibarra MD [address] [place] [address] [place] [address] Cardiology 11/24/22 Raúl Xiao MD [address] [place] [address] Surgeon Cardiac Surg 12/05/22 Ergonomics Technician Relationship Specialty Start Date End Date Piedad Han MD [address] [place] [address] [place] [address] PCP - General Family Medicine 06/01/20 Pedro Ibarra MD [address] [place] [address] [place] [address] Cardiology 11/24/22 Raúl Xiao MD [address] [place] [address] Surgeon Cardiac Surg 12/05/22 Ergonomics Technician Relationship Specialty Start Date End Date Piedad Han MD [address] [place] [address] [place], [place] [address] PCP - General Family Medicine 06/01/20 Pedro Ibarra MD [address] [place] [address] [place], [place] [address] Cardiology 11/24/22 Raúl Xiao MD [address] [facility] [place], [place] [id number] Surgeon Cardiac Surg 12/05/22 Ergonomics Technician Relationship Specialty Start Date End Date Piedad Han MD [address] [place] [place] [address] PCP - General Family Medicine 06/01/20 Pedro Ibarra MD [address] [place] [address] [place], [place] [address] Cardiology 11/24/22 Raúl Xiao MD [address] [place] [address] Surgeon Cardiac Surg 12/05/22 Ergonomics Technician Relationship Specialty Start Date End Date Piedad Han MD [address] [place] [address] [place] [address] PCP - General Family Medicine 06/01/20 Pedro Ibarra MD [address] [address] Cardiology 11/24/22 Raúl Xiao MD [address] [place], [place] [address] Surgeon Cardiac Surg 12/05/22 Ergonomics Technician Relationship Specialty Start Date End Date Piedad Han MD [address] [facility] [address] [place] [address] PCP - General Family Medicine 06/01/20 Pedro Ibarra MD [address] [address] Cardiology 11/24/22 Raúl Xiao MD [address] [place] [address] Surgeon Cardiac Surg 12/05/22 Ergonomics Technician Relationship Specialty Start Date End Date Piedad Han MD [address] [address] PCP - General Family Medicine 06/01/20 Pedro Ibarra MD [address] [address] Cardiology 11/24/22 Raúl Xiao MD [address] [facility] [place] [place] [address] Surgeon Cardiac Surg 12/05/22 Team Status: Inactive Member Role Status Dates Dr. Piedad Han MD Primary Care Provider Active Beena Jay RESOURCE DEVELOPMENT DIRECTOR-C Attending Provider, Referring Pr ovider Active Ergonomics Technician Relationship Specialty Start Date End Date Piedad Han MD [address] [facility] [address] [place] [address] PCP - General Family Medicine 06/01/20 Pedro Ibarra MD [address] [place] [address] [place] [address] Cardiology 11/24/22 Raúl Xiao MD [address] [place] [address] Surgeon Cardiac Surg 12/05/22 Ergonomics Technician Relationship Specialty Start Date End Date Piedad Han MD [address] [facility] [address] [place] [address] PCP - General Family Medicine 06/01/20 Pedro Ibarra MD [address] [place] [address] [place] [address] Cardiology 11/24/22 Raúl Xiao MD [address] [place] [address] Surgeon Cardiac Surg 12/05/22 Ergonomics Technician Relationship Specialty Start Date End Date Piedad Han MD [address] [facility] [address] [place] [address] PCP - General Family Medicine 06/01/20 Pedro Ibarra MD [address] [facility] [address] [place] [address] Cardiology 11/24/22 Raúl Xiao MD [address] [place] [address] Surgeon Cardiac Surg 12/05/22 Ergonomics Technician Relationship Specialty Start Date End Date Piedad Han MD [address] [facility] [address] [place] [address] PCP - General Family Medicine 06/01/20 Pedro Ibarra MD [address] [place] [address] [place] [address] Cardiology 11/24/22 Raúl Xiao MD [address] [facility] [place] [address] Surgeon Cardiac Surg 12/05/22 Ergonomics Technician Relationship Specialty Start Date End Date Piedad Han MD [address] [facility] [address] [place] [address] PCP - General Family Medicine 06/01/20 Pedro Ibarra MD [address] [place] [address] [place] [address] Cardiology 11/24/22 Raúl Xiao MD [address] [facility] [place] [place] [address] Surgeon Cardiac Surg 12/05/22 Ergonomics Technician Relationship Specialty Start Date End Date Piedad Han MD [address] [facility] [address] [place], [place] [id number] PCP - General Family Medicine 06/01/20 Pedro Ibarra MD [address] [place] [address] [place] [address] Cardiology 11/24/22 Raúl Xiao MD [address] [place], [place] [address] Surgeon Cardiac Surg 12/05/22 Ergonomics Technician Relationship Specialty Start Date End Date Piedad Han MD [address] [facility] [address] [place] [address] PCP - General Family Medicine 06/01/20 Pedro Ibarra MD [address] [place] [address] [place] [address] Cardiology 11/24/22 Raúl Xiao MD [address] [place], [place] [address] Surgeon Cardiac Surg 12/05/22 Ergonomics Technician Relationship Specialty Start Date End Date Piedad Han MD [address] [facility] [address] [place] [address] PCP - General Family Medicine 06/01/20 Pedro Ibarra MD [address] [facility] [address] [place] [address] Cardiology 11/24/22 Raúl Xiao MD [address] [place], [place] [address] Surgeon Cardiac Surg 12/05/22 Ergonomics Technician Relationship Specialty Start Date End Date Piedad Han MD [address] [facility] [address] [place] [address] PCP - General Family Medicine 06/01/20 Pedro Ibarra MD [address] [place] [address] [place], [place] [address] Cardiology 11/24/22 Raúl Xiao MD [address] [place] [address] Surgeon Cardiac Surg 12/05/22 Yessenia Oconnor DO [address] [place] [address] Cardiology 06/28/23 Ergonomics Technician Relationship Specialty Start Date End Date Piedad Han MD [address] [facility] [address] [place] [address] PCP - General Family Medicine 06/01/20 Pedro Ibarra MD [address] [place] [address] Cardiology 11/24/22 Raúl Xiao MD [address] [place] [address] Surgeon Cardiac Surg 12/05/22 Yessenia Oconnor DO [address] [place] [address] Cardiology 06/28/23 Ergonomics Technician Relationship Specialty Start Date End Date Piedad Han MD [address] [facility] [address] [place] [address] PCP - General Family Medicine 06/01/20 Pedro Ibarra MD [address] [place] [address] [place] [address] Cardiology 11/24/22 Raúl Xiao MD [address] [place] [address] Surgeon Cardiac Surg 12/05/22 Yessenia Oconnor DO [address] [place] [address] Cardiology 06/28/23 Ergonomics Technician Relationship Specialty Start Date End Date Piedad Han MD [address] [facility] [address] [place] [address] PCP - General Family Medicine 06/01/20 Pedro Ibarra MD [address] [facility] [address] [place] [address] Cardiology 11/24/22 Raúl Xiao MD [address] [place] [address] Surgeon Cardiac Surg 12/05/22 Yessenia Oconnor DO [address] [place] [address] Cardiology 06/28/23 Ergonomics Technician Relationship Specialty Start Date End Date Piedad Han MD [address] [place] [address] [place] [address] PCP - General Family Medicine 06/01/20 Pedro Ibarra MD [address] [facility] [address] [place] [address] Cardiology 11/24/22 Raúl Xiao MD [address] [address] Surgeon Cardiac Surg 12/05/22 Yessenia Oconnor DO [address] [place] [address] Cardiology 06/28/23 Ergonomics Technician Relationship Specialty Start Date End Date Piedad Han MD [address] [facility] [address] [place] [address] PCP - General Family Medicine 06/01/20 Pedro Ibarra MD 176 [facility] [address] [place] [address] Cardiology 11/24/22 Raúl Xiao MD [address] [place] [address] Surgeon Cardiac Surg 12/05/22 Yessenia Oconnor DO [address] [place] [address] Cardiology 06/28/23 Ergonomics Technician Relationship Specialty Start Date End Date Piedad Han MD [address] [place] [address] [address] [place] [address] PCP - General Family Medicine 06/01/20 Pedro Ibarra MD [address] [facility] [address] [place] [address] Cardiology 11/24/22 Raúl Xiao MD [address] [place], [place] [address] Surgeon Cardiac Surg 12/05/22 Yessenia Oconnor DO [address] [place] [address] Cardiology 06/28/23 Ergonomics Technician Relationship Specialty Start Date End Date Piedad Han MD [address] [facility] [address] [place] [address] PCP - General Family Medicine 06/01/20 Pedro Ibarra MD [address] [place] [address] Cardiology 11/24/22 Raúl Xiao MD [address] [place] [address] Surgeon Cardiac Surg 12/05/22 Yessenia Oconnor DO [address] [place] [address] Cardiology 06/28/23 Ergonomics Technician Relationship Specialty Start Date End Date Piedad Han MD [address] [facility] [address] [place] [address] PCP - General Family Medicine 06/01/20 Pedro Ibarra MD [address] [facility] [address] [place] [address] Cardiology 11/24/22 Raúl Xiao MD [address] [place] [address] Surgeon Cardiac Surg 12/05/22 Yessenia Oconnor DO [address] [place] [address] Cardiology 06/28/23 Team Status: Active Member Role [...] Provider Activ e Start: April 09, 2024 Ergonomics Technician Relationship Specialty Start Date End Date Piedad Han MD [address] [facility] [address] [place] [address] PCP - General Family Medicine 06/01/20 Pedro Ibarra MD [address] [facility] [address] [place] [address] Cardiology 11/24/22 Raúl Xiao MD [address] [place] [address] Surgeon Cardiac Surg 12/05/22 Ergonomics Technician Relationship Specialty Start Date End Date Piedad Han MD [address] [facility] [address] [place], [place] [id number] PCP - General Family Medicine 06/01/20 Pedro Ibarra MD [address] [address] Cardiology 11/24/22 Raúl Xiao MD [address] [place] [address] Surgeon Cardiac Surg 12/05/22 Team Status: Inactive [...] July 12, 2024 End: July 12, 2024 Ergonomics Technician Relationship Specialty Start Date End Date Piedad Han MD [address] [facility] [address] [place], [place] [id number] PCP - General Family Medicine 06/01/20 Pedro Ibarra MD [address] [facility] [address] [place] [address] Cardiology 11/24/22 Raúl Xiao MD [address] [place], [place] [id number] Surgeon Cardiac Surg 12/05/22 Ergonomics Technician Relationship Specialty Start Date End Date Piedad Han MD [address] [facility] [address] [place], [place] [id number] PCP - General Family Medicine 06/01/20 Pedro Ibarra MD [address] [facility] [address] [place] [address] Cardiology 11/24/22 Raúl Xiao MD [address] [place] [address] Surgeon Cardiac Surg 12/05/22 Team [...] July 30, 2024 End: July 30, 2024 Ergonomics Technician Relationship Specialty Start Date End Date Piedad Han MD [facility] [address] [facility] [address] [place] [address] PCP - General Family Medicine 06/01/20 Pedro Ibarra MD [address] [facility] [address] [place] [address] Cardiology 11/24/22 Raúl Xiao MD [address] [place] [address] Surgeon Cardiac Surg 12/05/22 Team [...] 30, 2024 End: July 30, 2024 Dr. Pieadd Han MD Referring Provider Active Start: July [...] or prosecute any alcohol or drug abuse patient.[facility]In the event this information is protected by the Federal Confidentiality of Alcohol and Drug Abuse Patient Records regulations: The Federal rules restrict any use of the information to criminally investigate or prosecute any alcohol or drug abuse patient.[facility] HospitalIn the event this information is protected by the Federal Confidentiality of Alcohol and Drug Abuse Patient Records regulations: The Federal rules restrict any use of the information to criminally investigate or prosecute any alcohol or drug abuse patient.[facility] HospitalIn the event this information is protected by the Federal Confidentiality of Alcohol and Drug Abuse Patient Records regulations: The Federal rules restrict any use of the information to criminally investigate or prosecute any alcohol or drug abuse patient.[facility] HospitalIn the event this information is protected by the Federal Confidentiality of Alcohol and Drug Abuse Patient Records regulations: The Federal rules restrict any use of the information to criminally investigate or prosecute any alcohol or drug abuse patient.[facility] HospitalIn the event this information is protected by the Federal Confidentiality of Alcohol and Drug Abuse Patient Records regulations: The Federal rules restrict any use of the information to criminally investigate or prosecute any alcohol or drug abuse patient.[facility] HospitalIn the event this information is protected by the Federal Confidentiality of Alcohol and Drug Abuse Patient Records regulations: The Federal rules restrict any use of the information to criminally investigate or prosecute any alcohol or drug abuse patient.[facility] HospitalIn the event this information is protected by the Federal Confidentiality of Alcohol and Drug Abuse Patient Records regulations: The Federal rules restrict any use of the information to criminally investigate or prosecute any alcohol or drug abuse patient.[facility] HospitalIn the event this information is protected by the Federal Confidentiality of Alcohol and Drug Abuse Patient Records regulations: The Federal rules restrict any use of the information to criminally investigate or prosecute any alcohol or drug abuse patient.[facility] HospitalIn the event this information is protected by the Federal Confidentiality of Alcohol and Drug Abuse Patient Records regulations: The Federal rules restrict any use of the information to criminally investigate or prosecute any alcohol or drug abuse patient.[facility] HospitalIn the event this information is protected by the Federal Confidentiality of Alcohol and Drug Abuse Patient Records regulations: The Federal rules restrict any use of the information to criminally investigate or prosecute any alcohol or drug abuse patient.[facility] HospitalIn the event this information is protected by the Federal Confidentiality of Alcohol and Drug Abuse Patient Records regulations: The Federal rules restrict any use of the information to criminally investigate or prosecute any alcohol or drug abuse patient.[facility] HospitalIn the event this information is protected by the Federal Confidentiality of Alcohol and Drug Abuse Patient Records regulations: The Federal rules restrict any use of the information to criminally investigate or prosecute any alcohol or drug abuse patient.[facility] HospitalIn the event this information is protected by the Federal Confidentiality of Alcohol and Drug Abuse Patient Records regulations: The Federal rules restrict any use of the information to criminally investigate or prosecute any alcohol or drug abuse patient.[facility] HospitalIn the event this information is protected by the Federal Confidentiality of Alcohol and Drug Abuse Patient Records regulations: The Federal rules restrict any use of the information to criminally investigate or prosecute any alcohol or drug abuse patient.[facility] HospitalIn the event this information is protected by the Federal Confidentiality of Alcohol and Drug Abuse Patient Records regulations: The Federal rules restrict any use of the information to criminally investigate or prosecute any alcohol or drug abuse patient.[facility] HospitalIn the event this information is protected by the Federal Confidentiality of Alcohol and Drug Abuse Patient Records regulations: The Federal rules restrict any use of the information to criminally investigate or prosecute any alcohol or drug abuse patient.[facility] HospitalIn the event this information is protected by the Federal Confidentiality of Alcohol and Drug Abuse Patient Records regulations: The Federal rules restrict any use of the information to criminally investigate or prosecute any alcohol or drug abuse patient.[facility] HospitalIn the event this information is protected by the Federal Confidentiality of Alcohol and Drug Abuse Patient Records regulations: The Federal rules restrict any use of the information to criminally investigate or prosecute any alcohol or drug abuse patient.[facility] HospitalIn the event this information is protected by the Federal Confidentiality of Alcohol and Drug Abuse Patient Records regulations: The Federal rules restrict any use of the information to criminally investigate or prosecute any alcohol or drug abuse patient.[facility] HospitalIn the event this information is protected by the Federal Confidentiality of Alcohol and Drug Abuse Patient Records regulations: The Federal rules restrict any use of the information to criminally investigate or prosecute any alcohol or drug abuse patient.[facility] HospitalIn the event this information is protected by the Federal Confidentiality of Alcohol and Drug Abuse Patient Records regulations: The Federal rules restrict any use of the information to criminally investigate or prosecute any alcohol or drug abuse patient.[facility] HospitalIn the event this information is protected by the Federal Confidentiality of Alcohol and Drug Abuse Patient Records regulations: The Federal rules restrict any use of the information to criminally investigate or prosecute any alcohol or drug abuse patient.[facility] HospitalIn the event this information is protected by the Federal Confidentiality of Alcohol and Drug Abuse Patient Records regulations: The Federal rules restrict any use of the information to criminally investigate or prosecute any alcohol or drug abuse patient.[facility] HospitalIn the event this information is protected by the Federal Confidentiality of Alcohol and Drug Abuse Patient Records regulations: The Federal rules restrict any use of the information to criminally investigate or prosecute any alcohol or drug abuse patient.[facility] HospitalIn the event this information is protected by the Federal Confidentiality of Alcohol and Drug Abuse Patient Records regulations: The Federal rules restrict any use of the information to criminally investigate or prosecute any alcohol or drug abuse patient.[facility] HospitalIn the event this information is protected by the Federal Confidentiality of Alcohol and Drug Abuse Patient Records regulations: The Federal rules restrict any use of the information to criminally investigate or prosecute any alcohol or drug abuse patient.[facility] HospitalIn the event this information is protected by the Federal Confidentiality of Alcohol and Drug Abuse Patient Records regulations: The Federal rules restrict any use of the information to criminally investigate or prosecute any alcohol or drug abuse patient.[facility] HospitalIn the event this information is protected by the Federal Confidentiality of Alcohol and Drug Abuse Patient Records regulations: The Federal rules restrict any use of the information to criminally investigate or prosecute any alcohol or drug abuse patient.[facility] HospitalIn the event this information is protected by the Federal Confidentiality of Alcohol and Drug Abuse Patient Records regulations: The Federal rules restrict any use of the information to criminally investigate or prosecute any alcohol or drug abuse patient.[facility] HospitalIn the event this information is protected by the Federal Confidentiality of Alcohol and Drug Abuse Patient Records regulations: The Federal rules restrict any use of the information to criminally investigate or prosecute any alcohol or drug abuse patient.[facility] HospitalIn the event this information is protected by the Federal Confidentiality of Alcohol and Drug Abuse Patient Records regulations: The Federal rules restrict any use of the information to criminally investigate or prosecute any alcohol or drug abuse patient.[facility] HospitalIn the event this information is protected by the Federal Confidentiality of Alcohol and Drug Abuse Patient Records regulations: The Federal rules restrict any use of the information to criminally investigate or prosecute any alcohol or drug abuse patient.[facility] HospitalIn the event this information is protected by the Federal Confidentiality of Alcohol and Drug Abuse Patient Records regulations: The Federal rules restrict any use of the information to criminally investigate or prosecute any alcohol or drug abuse patient.[facility] HospitalIn the event this information is protected by the Federal Confidentiality of Alcohol and Drug Abuse Patient Records regulations: The Federal rules restrict any use of the information to criminally investigate or prosecute any alcohol or drug abuse patient.[facility] HospitalIn the event this information is protected by the Federal Confidentiality of Alcohol and Drug Abuse Patient Records regulations: The Federal rules restrict any use of the information to criminally investigate or prosecute any alcohol or drug abuse patient.[facility] HospitalIn the event this information is protected by the Federal Confidentiality of Alcohol and Drug Abuse Patient Records regulations: The Federal rules restrict any use of the information to criminally investigate or prosecute any alcohol or drug abuse patient.[facility] HospitalIn the event this information is protected by the Federal Confidentiality of Alcohol and Drug Abuse Patient Records regulations: The Federal rules restrict any use of the information to criminally investigate or prosecute any alcohol or drug abuse patient.[facility] HospitalIn the event this information is protected by the Federal Confidentiality of Alcohol and Drug Abuse Patient Records regulations: The Federal rules restrict any use of the information to criminally investigate or prosecute any alcohol or drug abuse patient.[facility] HospitalIn the event this information is protected by the Federal Confidentiality of Alcohol and Drug Abuse Patient Records regulations: The Federal rules restrict any use of the information to criminally investigate or prosecute any alcohol or drug abuse patient.[facility] Reason for Visit (unrecogniz ed section and content) Reason Comments Appointment Patient Update Reason Comments Referral Information Reason Comments Education Of Patient/family Reason Comments Cardiac Preop Checklist Specialty Diagnoses / Procedures Referred By Contac t Referred To Contact Cardiac Surg Diagnoses Cardiomyopathy, ischemic Coronary artery disease involving [place] heart with angina pectoris, unspecified vessel or lesion type (HCC) Hypertensive kidney disease with stage 3 chronic kidney disease, unspecified whether stage 3a or 3b CKD (HCC) Primary hypertension Hyperlipidemia, unspecified hyperlipidemia type Coronary angioplasty status Ischemic cardiomyopathy Heart disease Procedures CARDIOTHORACIC PREOP EVALUATION OFFICE/OUTPATIENT NEW HIGH MDM 60-74 MINUTES Raúl Xiao MD [address] [place] [address] Referral ID Status Reason Start Date Expiration Date V isits Requested Visits Authorized [id number] Closed PCP Requested Referral 12/09/2022 12/09/2023 1 1 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 Reason Comments Follow Up Reason Comments Cardiac Rehab Reason Comments Refill Request Reason Comments Follow Up Specialty Diagnoses / Procedures Referred By Contac t Referred To Contact Diagnoses Cardiomyopathy, ischemic Coronary artery disease involving [place] heart with angina pectoris, unspecified vessel or lesion type (HCC) Hypertensive kidney disease with stage 3 chronic kidney disease, unspecified whether stage 3a or 3b CKD (HCC) Primary hypertension Hyperlipidemia, unspecified hyperlipidemia type Coronary angioplasty status Ischemic cardiomyopathy Heart disease Coronary artery disease of [place] artery of [place] heart with stable angina pectoris (HCC) Chronic systolic HF (heart failure) (HCC) Stage 3b chronic kidney disease (HCC) Type 2 diabetes mellitus with stage 3b chronic kidney disease, with long-term current use of insulin (HCC) Procedures CARDIOVASCULAR MEDICINE OP FOLLOW UP APPT ORDER Elizabeth Chamberlain MD [address] [place] [address] Referral ID Status Reason Start Date Expiration Date Visits Requested Visits Authorized [id number] Ref Not Required PCP Requested Referral 3 [...] Reason Comments New Patient transfer care from [facility] Reason Comments Appointment (unrecognized sect ion and content) No Status Records FoundNo Status Records FoundNo Status Records FoundNo Status Records FoundNo Status Records Found INFORMATION SOURCE (unrecogn ized section and content) DATE CREATED AUTHOR 2022 [facility] DATE CREATED AUTHOR AUTHOR'S ORGANIZ ATION 03/26/2023 [facility] DATE CREATED AUTHOR AUTHOR'S ORGANIZ ATION 07/17/2024 [facility] DATE CREATED AUTHOR AUTHOR'S ORGANIZ ATION 08/08/2024 [facility] DATE CREATED AUTHOR AUTHOR'S ORGANIZ ATION 11/20/2024 [facility] FOR RECORDS PERTAINING TO PATIENTS WHO ARE [...] BE BASED ON THE PRIMARY CLINICAL RECORDS. [employer] provides no warranty or guarantee of the accuracy or completeness of information in this document.
[2024-11-29 18:25] LABS: Albumin, Serum 3.7 g/dL (3.4-4.8); Anion Gap 12 (5-15); BUN 46 mg/dL (4-19); BUN/Creat Ratio 18.3 RATIO (10-20); Calcium,Total 9.1 mg/dL (7.6-11.0); Carbon Dioxide 21.2 mmol/L (21.0-32.0); Chloride 100 mmol/L (98-108); Glucose 172 mg/dL (70-99); Potassium 4.7 mmol/L (3.3-5.1)
[2024-11-29 18:29] LABS: PTHIN 124 pg/mL (11-61)
[2024-11-29 18:39] LABS: Creatinine, Urine (random) 48.40 mg/dL (39.00-259.00)
[2024-11-29 18:51] LABS: Protein, Urine (Random) 227.0 mg/dL (0.0-12.0); Protein:Creat Ratio 4690 mg/g CRE (0-200)
== END | disposition home or self-care (01) ==
LOC: MTLAB 14:25
PROVIDERS: PCP Family Medicine; Referring Provider Internal Medicine Nephrology; Visit Provider Internal Medicine Nephrology
DX: N25.81 Secondary hyperparathyroidism of renal origin (principal); N18.4 Chronic kidney disease, stage 4 (severe); E11.21 Type 2 diabetes mellitus with diabetic nephropathy; E11.22 Type 2 diabetes mellitus with diabetic chronic kidney disease
CPT/HCPCS: 36415; 80069; 82570; 83970; 84156